=== PATIENT | male | born 1955 | race Hispanic/Latino ===

== ENCOUNTER 2019-04-14 09:24 | Emergency (ER) | payer BC, OTHER ==
[2019-04-14 09:46] LABS: Absolute Lymphocytes (CBC) 1.3 K/uL (0.7-4.9); Basophils % 0.7 % (0-1.3); Hematocrit 33.5 % (39.6-49.0); MPV 8.6 fL (7.6-11.3); RBC Red Blood Cell Count 3.75 M/uL (4.33-5.43)
--- NOTE | 2019-04-14 09:47 | RAD REPORT ---
EXAM DESCRIPTION: CT - Ct Stroke Brain Wo Cont - 04/14/2019 9:38 am CLINICAL HISTORY: Blurred vision COMPARISON: September 03, 2018 TECHNIQUE: Computed axial tomography of the head was obtained. All CT scans are performed using dose optimization technique as appropriate and may include automated exposure control or mA/KV adjustment according to patient size. FINDINGS: An intracranial bleed is not seen . The ventricles are normal in caliber. No extra-axial fluid collection is noted. Fluid within the sinuses/ mastoids is not seen. Minimal mucoperiosteal thickening right maxillary sin us IMPRESSION: No acute intracranial abnormality is seen. If patient's symptoms persist MRI of the bra in would be recommended. Dr Menchaca of the emergency room was notified at 9:42 a.m. April 14, 2019
[2019-04-14 09:53] LABS: Protime INR 1.01
[2019-04-14] MEDS ORDERED: NA CHLORIDE 0.9% 1,000 ML ONE (10:18)
--- NOTE | 2019-04-14 10:22 | RAD REPORT ---
EXAM DESCRIPTION: Sima Single View04/14/2019 9:45 am CLINICAL HISTORY: Hypertension COMPARISON: 2010 FINDINGS: The aortic arch is prominent likely is secondary to either tortuosity/ectasia or aneurysm The lungs appear clear of acute infiltrate. The heart is normal size
[2019-04-14 10:25] LABS: Potassium 4.5 mmol/L (3.5-5.1)
--- NOTE | 2019-04-14 12:04 | EDPHYS ---
Physician Documentation [facility] Name: Sabra Rodriguez Jr Age: 63 yrs Sex: Male : 1955 Arrival Date: 04/14/2019 Time: 09:25 Bed 8 Private MD: ED Physician Adolfo Menchaca HPI: 04/14 11:59 This 63 yrs old Male presents to ER via EMS with complaints of Blurred Vision. ma2 11:59 The patient is experiencing blurred vision. Onset: The symptoms/episode began/occurred ma2 gradually, 1 day(s) ago. Associated signs and symptoms: Pertinent negatives: chills, ear ache, fever, headache. Patient wears glasses. Severity of symptoms: At their worst the symptoms were moderate in the emergency department the symptoms have improved. The patient has not experienced similar symptoms in the past, The patient has experienced similar episodes in the past. Historical: - Allergies: 09:29 No Known Allergies; hb - Home Meds: :29 lisinopril 20 mg Oral tab 1 tab once daily [Active]; hb - PMHx: :29 Hypertension; hb - PSHx: 09:29 None; hb - Immunization history:: Adult Immunizations up to date. - Social history:: Smoking status: Patient/guardian denies using tobacco, Patient/guardian denies using alcohol, street drugs, The patient lives with family. - Ebola Screening: : No symptoms or risks identified at this time. - Family history:: not pertinent. ROS: 11:59 Constitutional: Negative for fever, chills, and weight loss. ma2 11:59 All other systems are negative. Exam: 11:59 Visual Acuity: 60/20 right and 120/20 on left, that is baseline per patient . ma2 11:59 Constitutional: This is a well developed, well nourished patient who is awake, alert, and in no acute distress. Head/Face: Normocephalic, atraumatic. Eyes: Pupils equal round and reactive to light, extra-ocular motions intact. Lids and lashes normal. Conjunctiva and sclera are non-icteric and not injected. Cornea within normal limits. Periorbital areas with no swelling, redness, or edema. Cardiovascular: Regular rate and rhythm with a normal S1 and S2. No gallops, murmurs, or rubs. Normal PMI, no JVD. No pulse deficits. Respiratory: Lungs have equal breath sounds bilaterally, clear to auscultation and percussion. No rales, rhonchi or wheezes noted. No increased work of breathing, no retractions or nasal flaring. Abdomen/GI: Soft, non-tender, with normal bowel sounds. No distension or tympany. No guarding or rebound. No evidence of tenderness throughout. MS/ Extremity: Pulses equal, no cyanosis. Neurovascular intact. Full, normal range of motion. Neuro: Awake and alert, GCS 15, oriented to person, place, time, and situation. Cranial nerves II-XII grossly intact. Motor strength 5/5 in all extremities. Sensory grossly intact. Cerebellar exam normal. Normal gait. Vital Signs: 09:28 BP 173 / 73; Pulse 88; Resp 16; Temp 97.2; Pulse Ox 100% on R/A; Pain 0/10; hb 09:53 BP 167 / 79; Pulse 80; Resp 17; Pulse Ox 98% on R/A; sg 11:00 BP 156 / 76; Pulse 77; Resp 15; Pulse Ox 100% on R/A; Pain 0/10; hb 12:00 BP 148 / 74; Pulse 72; Resp 15; Pulse Ox 100% on R/A; sg NIH Stroke Scale Scores: 10:10 NIHSS Score: 0 hb MDM: 09:32 Patient medically screened. ma2 11:59 Differential diagnosis: diabetic retinopathy or retinal disease, his blurry vision is ma2 resolved. Data reviewed: vital signs, nurses notes. Counseling: I had a detailed discussion with the patient and/or guardian regarding: the historical points, exam findings, and any diagnostic results supporting the discharge/admit diagnosis, the presence of at least one elevated blood pressure reading (>120/80) during this emergency department visit, the need for outpatient follow up, needs to see opthalomolgy in the next 24 ghrs . Response to treatment: There is no appreciated change of the patient's symptoms at this time, the patient's symptoms have mildly improved after treatment. 04/14 09:32 Order name: Basic Metabolic Panel; Complete Time: 10:25 hb 04/14 09:32 Order name: CBC with Diff; Complete Time: 10:25 hb 04/14 09:32 Order name: Protime (+inr); Complete Time: 10:25 hb 04/14 09:32 Order name: Ptt, Activated; Complete Time: 10:25 hb 04/14 09:32 Order name: CT Stroke Brain w/o Contrast hb 04/14 09:50 Order name: Glucose, Ancillary Testing; Complete Time: 10:25 EDMS 04/14 09:32 Order name: Stroke CXR 1 View hb 04/14 09:32 Order name: Accucheck; Complete Time: 10:03 hb 04/14 09:32 Order name: Cardiac monitoring; Complete Time: 10:04 hb 04/14 09:32 Order name: EKG - Nurse/Tech; Complete Time: 10:04 hb 04/14 09:32 Order name: IV Saline Lock; Complete Time: 10:04 hb 04/14 09:32 Order name: Labs collected and sent; Complete Time: 10:04 hb 04/14 09:32 Order name: NPO; Complete Time: 10:04 hb 04/14 09:32 Order name: O2 Per Protocol; Complete Time: 10:04 hb 04/14 09:32 Order name: O2 Sat Monitoring; Complete Time: 10:04 hb 04/14 09:32 Order name: Stroke Swallow Screen; Complete Time: 10:04 hb Administered Medications: 10:31 Drug: NS 0.9% 1000 ml Route: IV; Rate: 1000 ml; Site: right antecubital; sg 11:22 Follow up: Response: No adverse reaction; IV Status: Completed infusion; IV Intake: hb 1000ml Disposition: 04/14/19 12:03 Discharged to Home. Impression: Visual disturbances. - Condition is Stable. - Discharge Instructions: Blurred Vision, Adult. - Medication Reconciliation Form, Thank You Letter, Antibiotic Education, Prescription Opioid Use form. - Follow up: Oscar Griffin MD; When: Tomorrow; Reason: Continuance of care. NIH Stroke Scale - NIH Stroke Score Date: 04/14/2019 Time: 10:10 Total Score = 0 1a. Level of Consciousness (LOC) - 0(Alert) 1b. Level of Consciousness (LOC) (Year \T\ Age) - 0(Both) 1c. LOC Commands (Open \T\ Closes Eyes/Hr Shared Services Consultant) - 0(Both) 2. Best Gaze (Lateral Gaze Paresis) - 0(Normal) 3. Visual Field Loss - 0(No visual loss) 4. Facial Palsy - 0(Normal) 5a. Left Arm: Motor (10-second hold) - 0(No drift) 5b. Right Arm: Motor (10-second hold) - 0(No drift) 6a. Left Leg: Motor (5-second hold - always test supine) - 0(No drift) 6b. Right Leg: Motor (5-second hold - always test supine) - 0(No drift) 7. Limb Ataxia (finger/nose \T\ heel/serrato - test with eyes open) - 0(Absent) 8. Sensory Loss (pinprick arms/legs/face) - 0(Normal) 9. Best Language: Aphasia (description/naming/reading) - 0(No aphasia) 10. Dysarthria (speech clarity - read or repeat words) - 0(Normal) 11. Extinction and Inattention (visual/tactile/auditory/spatial/personal) - 0(No abnormality) Initials: Signatures: Dispatcher [employer] EDMS Orlin Savage RN RN Davida Magana RN RN Leigh Oliveros RN RN Adolfo Menchaca MD MD ma2 Corrections: (The following items were deleted from the chart) 12:36 12:03 04/14/2019 12:03 Discharged to Home. Impression: Visual disturbances. ss Condition is Stable. Forms are Medication Reconciliation Form, Thank You Letter, Antibiotic Education, Prescription Opioid Use. Follow up: Oscar Griffin; When: Tomorrow; Reason: Continuance of care. ma2
--- NOTE | 2019-04-14 12:04 | ER ---
Nurse's Notes [facility] Name: Sabra Rodriguez Jr Age: 63 yrs Sex: Male : 1955 Arrival Date: 04/14/2019 Time: 09:25 Bed 8 Private MD: Diagnosis: Visual disturbances Presentation: 04/14 09:25 Presenting complaint: EMS states: Blurred vision that started at 0815 today. Hx of HTN, hb takes lisinopril 20 mg, took an extra lisinopril before calling medic. BP 210/130, BGL 87. VAN NEGATIVE. Transition of care: patient was not received from another setting of care. Onset of symptoms was April 14, 2019 at 08:15. Risk Assessment: Do you want to hurt yourself or someone else? Patient reports no desire to harm self or others. Care prior to arrival: IV initiated. 20 GA, in the left antecubital area, Glucose check: 232. 09:25 Method Of Arrival: EMS: [facility] 09:25 Acuity: KRISTINA 2 hb 09:31 Initial Sepsis Screen: Does the patient meet any 2 criteria? No. Patient's initial hb sepsis screen is negative. Does the patient have a suspected source of infection? No. Patient's initial sepsis screen is negative. Triage Assessment: 09:29 General: Appears in no apparent distress. Behavior is calm, cooperative. Pain: Denies hb pain. EENT: No signs and/or symptoms were reported regarding the EENT system. Neuro: Level of Consciousness is awake, alert, obeys commands, Oriented to person, place, time, situation. Cardiovascular: Capillary refill < 3 seconds Patient's skin is warm and dry. Respiratory: Airway is patent Respiratory effort is even, unlabored, Respiratory pattern is regular, symmetrical, Breath sounds are clear bilaterally. GI: No signs and/or symptoms were reported involving the gastrointestinal system. : No signs and/or symptoms were reported regarding the genitourinary system. Derm: No signs and/or symptoms reported regarding the dermatologic system. Skin is pink, warm \T\ dry. Musculoskeletal: No signs and/or symptoms reported regarding the musculoskeletal system. Historical: - Allergies: : No Known Allergies; hb - Home Meds: lisinopril 20 mg Oral tab 1 tab once daily [Active]; hb - PMHx: 09:29 Hypertension; hb - PSHx: 09:29 None; hb - Immunization history:: Adult Immunizations up to date. - Social history:: Smoking status: Patient/guardian denies using tobacco, Patient/guardian denies using alcohol, street drugs, The patient lives with family. - Ebola Screening: : No symptoms or risks identified at this time. - Family history:: not pertinent. Screenin:29 Abuse screen: Denies threats or abuse. Denies injuries from another. Nutritional hb screening: No deficits noted. Tuberculosis screening: No symptoms or risk factors identified. Fall Risk None identified. 10:10 Patient has been NPO before screening. The patient is alert, able to follow commands. hb The patient does not exhibit slurred or garbled speech The patient is not exhibiting difficulty speaking. The patient does not exhibit difficulty understanding words. The patient is able to swallow own secretions with no drooling or need for suction. Patient tolerated one teaspoon of water. No drooling, immediate coughing, gurgling, or clearing of the throat was noted. The patient tolerated 90mL of water. No drooling, immediate coughing, gurgling, or clearing of the throat was noted. The patient passed the bedside swallow screening. Oral medications may be given as ordered. Contact Physician for further diet orders. Assessment: 09:27 Reassessment: CODE STROKE CALLED. Pt to CT with Orlin GARNETT. hb 09:30 General: see triage assessment. hb 10:30 Reassessment: Patient appears in no apparent distress at this time. Patient and/or sg family updated on plan of care and expected duration. Pain level reassessed. Patient is alert, oriented x 3, equal unlabored respirations, skin warm/dry/pink. reports feeling a chill from the inside, denies feeling anxious or cold on the skin, pt family at bedside at this time. 10:44 Pain: Denies pain. Neuro: Level of Consciousness is awake, alert, obeys commands, sg Oriented to person, place, time, Reports blurred vision. Cardiovascular: Patient's skin is warm and dry. Chest pain is denied. Respiratory: Airway is patent Respiratory effort is even, unlabored, Respiratory pattern is regular, symmetrical. Derm: Skin is pink, warm \T\ dry. Musculoskeletal: Circulation, motion, and sensation intact. Range of motion: intact in all extremities. 11:30 Reassessment: Patient appears in no apparent distress at this time. Patient and/or hb family updated on plan of care and expected duration. Pain level reassessed. Patient is alert, oriented x 3, equal unlabored respirations, skin warm/dry/pink. 12:30 Reassessment: Patient appears in no apparent distress at this time. Patient and/or sg family updated on plan of care and expected duration. Pain level reassessed. Patient is alert, oriented x 3, equal unlabored respirations, skin warm/dry/pink. Vital Signs: 09:28 BP 173 / 73; Pulse 88; Resp 16; Temp 97.2; Pulse Ox 100% on R/A; Pain 0/10; hb 09:53 BP 167 / 79; Pulse 80; Resp 17; Pulse Ox 98% on R/A; sg 11:00 BP 156 / 76; Pulse 77; Resp 15; Pulse Ox 100% on R/A; Pain 0/10; hb 12:00 BP 148 / 74; Pulse 72; Resp 15; Pulse Ox 100% on R/A; sg NIH Stroke Scale Scores: 10:10 NIHSS Score: 0 hb ED Course: 09:25 Patient arrived in ED. hb 09:27 Triage completed. hb 09:28 Arm band placed on. hb 09:30 Patient has correct armband on for positive identification. Bed in low position. Call hb light in reach. Side rails up X 1. 09:30 Maintain EMS IV. Dressing intact. Good blood return noted. Site clean \T\ dry. Gauge \T\ hb site: 20 G LEFT AC. 09:32 Adolfo Menchaca MD is Attending Physician. ma2 09:34 Leigh Oliveros, TAMIR is Primary Nurse. hb 09:38 CT Stroke Brain w/o Contrast In Process Unspecified. EDMS 09:45 Stroke CXR 1 View In Process Unspecified. EDMS 09:51 Awaiting ED provider evaluation. sg 12:03 Oscar Griffin MD is Referral Physician. ma2 12:29 No provider procedures requiring assistance completed. IV discontinued, intact, ss bleeding controlled, No redness/swelling at site. Pressure dressing applied. Administered Medications: 10:31 Drug: NS 0.9% 1000 ml Route: IV; Rate: 1000 ml; Site: right antecubital; sg 11:22 Follow up: Response: No adverse reaction; IV Status: Completed infusion; IV Intake: hb 1000ml Intake: 11:22 IV: 1000ml; Total: 1000ml. hb Outcome: 12:03 Discharge ordered by . mali 12:29 Discharged to home ambulatory, with family. 12:29 Condition: good 12:29 Discharge instructions given to patient, family, Instructed on discharge instructions, follow up and referral plans. Demonstrated understanding of instructions, follow-up care, medications. 12:36 Patient left the ED. NIH Stroke Scale - NIH Stroke Score Date: 04/14/2019 Time: 10:10 Total Score = 0 1a. Level of Consciousness (LOC) - 0(Alert) 1b. Level of Consciousness (LOC) (Year \T\ Age) - 0(Both) 1c. LOC Commands (Open \T\ Closes Eyes/Auricular Therapist) - 0(Both) 2. Best Gaze (Lateral Gaze Paresis) - 0(Normal) 3. Visual Field Loss - 0(No visual loss) 4. Facial Palsy - 0(Normal) 5a. Left Arm: Motor (10-second hold) - 0(No drift) 5b. Right Arm: Motor (10-second hold) - 0(No drift) 6a. Left Leg: Motor (5-second hold - always test supine) - 0(No drift) 6b. Right Leg: Motor (5-second hold - always test supine) - 0(No drift) 7. Limb Ataxia (finger/nose \T\ heel/serrato - test with eyes open) - 0(Absent) 8. Sensory Loss (pinprick arms/legs/face) - 0(Normal) 9. Best Language: Aphasia (description/naming/reading) - 0(No aphasia) 10. Dysarthria (speech clarity - read or repeat words) - 0(Normal) 11. Extinction and Inattention (visual/tactile/auditory/spatial/personal) - 0(No abnormality) Initials: hb Signatures: Dispatcher [employer] Orlin Scott RN RN Davida Magana RN RN ss Baxter, Heather, RN RN Adolfo Menchaca MD MD ma2
[2019-04-14 12:45] VITALS: TEMP 97.2
[2019-04-14 12:48] VITALS: BP 167/79; O2SAT 98
--- OUTSIDE RECORDS SUMMARY | 2019-04-15 07:06 | XMS REPORT ---
:1955 Author Organization [employer] Care Team Providers Name Role Phone Hayder Guardado Provider Role Unavailable Allergies No Known Allergies Problems Problem Type Condition Code Onset Dates Condition Status Assessment Type 2 diabetes mellitus with E11.21 Active diabetic nephropathy Problem Type 2 diabetes mellitus with E11.21 Active diabetic nephropathy Problem Type 2 diabetes mellitus with E11.65 Active hyperglycemia Problem Mixed hyperlipidemia E78.2 Active Problem Nocturia R35.1 Active Problem BMI 40.0-44.9, adult Z68.41 Active Problem Proteinuria, unspecified type R80.9 Active Problem HTN, goal below 130/80 I10 Active Medications Medication Code System Code Instructions Start End Date Status Dosage Date GlipiZIDE ND 97855645851 10 MG Orally November 08, Active 1 tablet Once a day 2017 Jardiance [facility] 77873336091 10 MG Orally October 20December 19, Inactive 1 tablet Once a day 2017 2018 Results No Known Results Summary Purpose [employer] Submission
--- OUTSIDE RECORDS SUMMARY | 2019-04-15 07:06 | XMS REPORT ---
:1955 Author Organization [employer] Care Team Providers Name Role Phone Hayder Guardado Provider Role Unavailable Allergies, Adverse Reactions, Alerts Substance Reaction Event Type N.K.D.A. Info Not Available Non Drug Allergy Problems Problem Type Condition Code Onset Dates Condition Status Assessment HTN, goal below 130/80 I10 Active Assessment Type 2 diabetes mellitus with E11.21 Active diabetic nephropathy Assessment Mixed hyperlipidemia E78.2 Active Assessment BMI 40.0-44.9, adult Z68.41 Active Assessment Proteinuria, unspecified type R80.9 Active Problem Type 2 diabetes mellitus with E11.21 Active diabetic nephropathy Problem Type 2 diabetes mellitus with E11.65 Active hyperglycemia Problem Mixed hyperlipidemia E78.2 Active Problem Nocturia R35.1 Active Problem BMI 40.0-44.9, adult Z68.41 Active Problem Proteinuria, unspecified type R80.9 Active Problem HTN, goal below 130/80 I10 Active Medications Medication Code Code Instructions Start End Status Dosage System Date Date Metformin HCl [facility] 39247548782 1000 MG Orally October 20, Active 1 tablet Twice a day 2018 with a meal Jardiance [facility] 46979890063 10 MG Orally October 20December Active 1 tablet Once a day 2017 Simvastatin ND 46881854840 10 MG Orally October 20, Active 1 tablet Once a day at 2018 in the bedtime evening Lisinopril-Hydr [facility] 22812285710 10-12.5 MG October 20, Active 1 tablet ochlorothiazide Orally Once a 2018 day Results No Known Results Summary Purpose [employer] Submission
--- OUTSIDE RECORDS SUMMARY | 2019-04-15 07:06 | XMS REPORT ---
:1955 Author Organization [employer] Care Team Providers Name Role Phone Geo Hayder Provider Role Unavailable Allergies No Known Allergies Problems Problem Type Condition Code Onset Dates Condition Status Assessment Mixed hyperlipidemia E78.2 Active Assessment Type 2 diabetes mellitus with E11.21 Active diabetic nephropathy Assessment BMI 40.0-44.9, adult Z68.41 Active Assessment Proteinuria, unspecified type R80.9 Active Assessment HTN, goal below 130/80 I10 Active Problem Type 2 diabetes mellitus with E11.21 Active diabetic nephropathy Problem Type 2 diabetes mellitus with E11.65 Active hyperglycemia Problem Mixed hyperlipidemia E78.2 Active Problem Nocturia R35.1 Active Problem BMI 40.0-44.9, adult Z68.41 Active Problem Proteinuria, unspecified type R80.9 Active Problem HTN, goal below 130/80 I10 Active Medications Medication Code Code Instructions Start End Status Dosage System Date Date Jardiance ND 19009978019 10 MG Orally December Inactive 1 tablet Once a day 2017 Lisinopril-Hydr [facility] 52654251400 10-12.5 MG Inactive 1 tablet ochlorothiazide Orally Once a day Lisinopril-Hydr ND 51767601673 20-12.5 MG December 18, Active 1 tablet ochlorothiazide Orally Once a 2018 day GlipiZIDE ND 54153215629 10 MG Orally November 08, Active 1 tablet Once a day 2017 Simvastatin ND 79049981593 40 MG Orally Active 1 tablet Once a day at in the bedtime evening Metformin HCl ND 84272299895 1000 MG Orally Active 1 tablet Twice a day with a meal Results No Known Results Summary Purpose [employer] Submission
--- OUTSIDE RECORDS SUMMARY | 2019-04-15 07:06 | XMS REPORT ---
:1955 Author Organization [employer] Care Team Providers Name Role Phone Hayder Guardado Provider Role Unavailable Allergies, Adverse Reactions, Alerts Substance Reaction Event Type N.K.D.A. Info Not Available Non Drug Allergy Problems Problem Type Condition Code Onset Dates Condition Status Assessment Screening for colon cancer Z12.11 Active Assessment BMI 40.0-44.9, adult Z68.41 Active Assessment Nocturia R35.1 Active Assessment Encounter for screening for other Z11.59 Active viral diseases Problem BMI 40.0-44.9, adult Z68.41 Active Problem Elevated BP without diagnosis of R03.0 Active hypertension Problem Nocturia R35.1 Active Assessment Uncontrolled type 2 diabetes E11.65 Active mellitus without complication, without long-term current use of insulin Assessment Elevated BP without diagnosis of R03.0 Active hypertension Problem Uncontrolled type 2 diabetes E11.65 Active mellitus without complication, without long-term current use of insulin Assessment Encounter for preventative adult Z00.01 Active health care exam with abnormal findings Medications No Known Medications Results No Known Results Summary Purpose [employer] to [employer] Submission
--- NOTE | 2019-04-15 15:56 | EKG ---
Test Date: 2019-04-14 Test Time: 09:46:10 Fusing Machine Operator: SHABBIR MEASUREMENT RESULTS: Intervals: Rate: 77 OK: 158 QRSD: 152 QT: 410 QTc: 463 [place]: P: 2 OK: 158 QRS: -57 T: 21 INTERPRETIVE STATEMENTS: Normal sinus rhythm Left axis deviation Nonspecific intraventricular block Abnormal ECG No previous ECG available for comparison Electronically Signed On 04-15-19 15:54:33 HEAD CHEF by Mukund Navarrete
== END 2019-04-14 12:36 | disposition home or self-care (01) ==
LOC: ER 09:24
DX: H53.8 Other visual disturbances (principal); I10 Essential (primary) hypertension
CPT/HCPCS: 93005; 85025; 80048; 36415; 85610; 82947; 85730; 70450; 71045; 96360; 99284; J7030

== ENCOUNTER 2019-10-05 09:59 | Emergency (ER) | payer BC ==
--- OUTSIDE RECORDS SUMMARY | 2019-10-05 10:01 | XMS REPORT ---
:1955 Author Organization [employer] Care Team Providers Name Role Phone Hayder Guardado Provider Role Unavailable Allergies, Adverse Reactions, Alerts Substance Reaction Event Type N.K.D.A. Info Not Available Non Drug Allergy Problems Problem Type Condition Code Onset Dates Condition Statu s Assessment HTN, goal below 130/80 I10 Activ e Assessment Type 2 diabetes mellitus with E11.21 [...] Active Problem HTN, goal below 130/80 I10 Activ e Medications Medication Code Code Instructions Start End Status Dosage System Date Date Metformin HCl ND 38401696909 1000 MG Orally October 20, Active 1 tablet Twice a day 2018 with a meal Jardiance [facility] 44608947412 10 MG Orally October 20December Active 1 tab let Once a day 2017 Simvastatin ND 46288047286 10 MG Orally October 20, Active 1 t ablet Once a day at 2018 in the bedtime evening Lisinopril-Hydr [facility] 47379680348 10-12.5 MG October 20, Active 1 tablet ochlorothiazide Orally Once a 2018 day Results No Known Results Summary Purpose [employer] Submission
--- OUTSIDE RECORDS SUMMARY | 2019-10-05 10:01 | XMS REPORT ---
:1955 Author Organization [employer] Care Team Providers Name Role Phone Hayder Guardado Provider Role Unavailable Allergies No Known Allergies Problems Problem Type Condition Code Onset Dates Condition Statu s Assessment Type 2 diabetes mellitus with E11.21 Active diabetic nephropathy Problem Type 2 diabetes mellitus with E11.21 Active diabetic nephropathy Problem Type 2 diabetes mellitus with E11.65 Active hyperglycemia Problem Mixed hyperlipidemia E78.2 Active Problem Nocturia R35.1 Active Problem BMI 40.0-44.9, adult Z68.41 Active Problem Proteinuria, unspecified type R80.9 Active Problem HTN, goal below 130/80 I10 Activ e Medications Medication Code System Code Instructions Start End Date Status Dos age Date GlipiZIDE [facility] 93514674247 10 MG Orally November 08, Active 1 ta blet Once a day 2017 Jardiance [facility] 61273835676 10 MG Orally October 20December 19, Inactive 1 t ablet Once a day 2017 2017 Results No Known Results Summary Purpose [employer] Submission
--- OUTSIDE RECORDS SUMMARY | 2019-10-05 10:01 | XMS REPORT ---
:1955 Author Organization eClinicalWorks Care Team Providers Name Role Phone Geo Hayder Provider Role Unavailable Allergies No Known Allergies Problems Problem Type Condition Code Onset Dates Condition Statu s Assessment Mixed hyperlipidemia E78.2 Active Assessment Type 2 diabetes mellitus with E11.21 Active diabetic nephropathy Assessment BMI 40.0-44.9, adult Z68.41 Active Assessment Proteinuria, unspecified type R80.9 Active Assessment HTN, goal below 130/80 I10 Activ e Problem Type 2 diabetes mellitus with E11.21 Active diabetic nephropathy Problem Type 2 diabetes mellitus with E11.65 Active hyperglycemia Problem Mixed hyperlipidemia E78.2 Active Problem Nocturia R35.1 Active Problem BMI 40.0-44.9, adult Z68.41 Active Problem Proteinuria, unspecified type R80.9 Active Problem HTN, goal below 130/80 I10 Activ e Medications Medication Code Code Instructions Start End Status Dosage System Date Date Jardiance ND 55805751787 10 MG Orally December Inactive 1 ta blet Once a day 2017 Lisinopril-Hydr ND 28879487948 10-12.5 MG Inactive 1 tablet ochlorothiazide Orally Once a day Lisinopril-Hydr ND 56803285039 20-12.5 MG December 18, Active 1 tablet ochlorothiazide Orally Once a 2017 day GlipiZIDE ND 67198327048 10 MG Orally November 08, Active 1 ta blet Once a day 2017 Simvastatin ND 62907973440 40 MG Orally Active 1 t ablet Once a day at in the bedtime evening Metformin HCl ND 93498487118 1000 MG Orally Active 1 tablet Twice a day with a meal Results No Known Results Summary Purpose eClinicalWorks Submission
--- OUTSIDE RECORDS SUMMARY | 2019-10-05 10:01 | XMS REPORT ---
:1955 Author Organization [employer]ClinicalWorks Care Team Providers Name Role Phone Hayder Guardado Provider Role Unavailable Allergies, Adverse Reactions, Alerts Substance Reaction Event Type N.K.D.A. Info Not Available Non Drug Allergy Problems Problem Type Condition Code Onset Dates Condition Statu s Assessment Screening for colon cancer Z12.11 A ctive Assessment BMI 40.0-44.9, adult Z68.41 Active Assessment [...] Medications Results No Known Results Summary Purpose eClinicalWorks Submission
--- OUTSIDE RECORDS SUMMARY | 2019-10-05 10:02 | XMS REPORT ---
:1955 Author Organization [facility] t Address [address] [place] [address] Care Team Providers Name Role Phone Unavailable Unavailable Unavailable Problems Condition Condition Condition Status Onset Resolution Last Treatin g Comments Name Details Category Date Date Treatment Clinician Date BMI BMI Problem Active 40.0-44.9, 40.0-44.9, adult adult Nocturia Nocturia Problem Active Type 2 Type 2 Problem Active diabetes diabetes mellitus mellitus with with hyperglycem hyperglycem ia ia HTN, goal HTN, goal Problem Active below below 130/80 130/80 Type 2 Type 2 Problem Active diabetes diabetes mellitus mellitus with with diabetic diabetic nephropathy nephropathy Mixed Mixed Problem Active hyperlipide hyperlipide annita annita Proteinuria Proteinuria Problem Active , , unspecified unspecified type type Allergies, Adverse Reactions, Alerts This patient has no known allergies or adverse reactions. Medications Ordered Filled Start Stop Current Ordering Indication Dosage Frequency Signature Comments Components Medication Medication Date Date Medication? Clinician (SIG) Name Name Lisinopril- Lisinopril- 2018- Yes Hayder 1 tabl et Hydrochloro Hydrochloro -16 Guardado thiazide thiazide 00:00: 00 GlipiZIDE GlipiZIDE 2018-0 Yes Haydre 1 tablet 6-06 Guardado 00:00: 00 Jardiance Jardiance 2018- 2018- No Hayder 1 tablet -18 12-18 Guardado 00:00: 00:00 00 :00 Lisinopril- Lisinopril- Yes Hayder 1 table t Hydrochloro Hydrochloro Guardado thiazide thiazide Simvastatin Simvastatin Yes Hayder 1 table t Guardado in the evening Metformin Metformin Yes Hayder 1 tablet HCl HCl Guardado with a meal Encounters Start End Encounter Admission Attending Care Care Encounter Date/Time Date/Time Type Type Clinicians Facility Department ID 2017-12-18 2017-12-18 [facility] [id number] 14:00:00 14:00:00 [facility] 2017-10-23 2017-10-23 [facility] [id number] 15:32:00 15:32:00 [facility] 2017-10-20 2017-10-20 [facility] [id number] 10:30:00 10:30:00 [facility] 2017-10-02 2017-10-02 [facility] [id number] 10:30:00 10:30:00 [facility]
[2019-10-05] MEDS ORDERED: ONDANSETRON 4 MG/2 ML VIAL ONE (10:49)
[2019-10-05] MEDS ORDERED: NA CHLORIDE 0.9% 500 ML ONE (10:49)
[2019-10-05 10:56] LABS: Absolute Lymphocytes (CBC) 0.7 K/uL (0.7-4.9); Basophils % 0.4 % (0-1.3); Hematocrit 36.6 % (39.6-49.0); Lymphocytes % 5.3 % (15.3-44.8); MPV 9.3 fL (7.6-11.3)
[2019-10-05 11:07] LABS: Albumin 3.1 g/dL (3.4-5.0); Bilirubin Direct 0.2 mg/dL (0-0.2); Bilirubin Total 0.7 mg/dL (0.2-1.0); Potassium 3.8 mmol/L (3.5-5.1); Protein, Total 7.9 g/dL (6.4-8.2)
[2019-10-05 11:51] LABS: Blood Morphology Comment NOT SEEN (NOT SEEN); Platelet Estimate ADEQ
--- NOTE | 2019-10-05 12:35 | RAD REPORT ---
EXAM DESCRIPTION: CT - Abdomen Pelvis W Contrast - 10/05/2019 12:15 pm CLINICAL HISTORY: Abdominal pain. COMPARISON: None. TECHNIQUE: Computed axial tomography of the abdomen and pelvis was obtained. 100 cc Isovue-300 is ad ministered intravenously. Oral contrast was given. All CT scans are performed using dose optimization technique as appropriate and may include automated exposure control or mA/KV adjustment according to patient size. FINDINGS: The liver, spleen, pancreas, adrenals and kidneys appear unremarkable. The appendix is not visualized. There is no stranding adjacent to the cecum. There is no evidence of diverticulitis The bladder is mildly distended IMPRESSION: Mild bladder distention
--- NOTE | 2019-10-05 12:51 | ER ---
Nurse's Notes [facility] Name: Sabra Rodriguez Jr Age: 63 yrs Sex: Male : 1955 Arrival Date: 10/05/2019 Time: 10:00 Bed 25 Private MD: Diagnosis: Generalized abdominal pain Presentation: 10/04 10:05 Chief complaint: Patient states: right-sided abd pain, nausea, and constipation. Denies aa5 vomiting. Pt reports last normal BM was 4 days ago, reports small bowel movement this morning. 10:05 Coronavirus screen: Proceed with normal triage. Patient denies a cough. Patient denies aa5 shortness of breath or difficulty breathing. Patient denies measured and/or subjective temperature greater than 100.4F prior to today's visit. Patient denies travel on a cruise ship or to a country the [facility] currently lists as an affected area. Patient denies contact with known and/or suspected case of COVID-19. Ebola Screen: Patient negative for fever greater than or equal to 101.5 degrees Fahrenheit, and additional compatible Ebola Virus Disease symptoms. Initial Sepsis Screen: Does the patient meet any 2 criteria? No. Patient's initial sepsis screen is negative. Does the patient have a suspected source of infection? No. Patient's initial sepsis screen is negative. Risk Assessment: Do you want to hurt yourself or someone else? Patient reports no desire to harm self or others. Onset of symptoms was September 2019. 10:05 Acuity: KRISTINA 3 aa5 10:05 Method Of Arrival: Ambulatory aa5 Historical: - Allergies: 10:18 No Known Allergies; aa5 - Home Meds: 10:18 lisinopril-hydrochlorothiazide oral oral [Active]; Metformin Oral [Active]; losartan aa5 oral oral [Active]; - PMHx: 10:18 Hypertension; aa5 - PSHx: 10:18 None; aa5 - Immunization history:: Adult Immunizations unknown. - Family history:: not pertinent. - Social history:: Smoking status: unknown. - Hospitalizations: : No recent hospitalization is reported. Screenin:52 Abuse screen: Denies threats or abuse. Denies injuries from another. Nutritional iw screening: No deficits noted. Tuberculosis screening: No symptoms or risk factors identified. Fall Risk None identified. Assessment: 10:51 General: Appears in no apparent distress. Behavior is calm, cooperative. Pain: iw Complains of pain in right upper quadrant Neuro: Level of Consciousness is awake, alert, obeys commands, Oriented to person, place, time, situation, Moves all extremities. Full function. Cardiovascular: Patient's skin is warm and dry. Respiratory: Respiratory effort is even, unlabored, Respiratory pattern is regular, symmetrical. GI: Abdomen is round non-distended, Bowel sounds Abd is soft X 4 quads Reports upper abdominal pain, constipation, nausea, Patient currently denies vomiting. Derm: Skin is intact, is healthy with good turgor. Musculoskeletal: Range of motion: intact in all extremities. 11:43 Reassessment: Patient appears in no apparent distress at this time. Patient and/or iw family updated on plan of care and expected duration. Pain level reassessed. Patient is alert, oriented x 3, equal unlabored respirations, skin warm/dry/pink. Patient states symptoms have not improved. Vital Signs: 10:05 BP 198 / 89; Pulse 92; Resp 16 S; Temp 98.8(O); Pulse Ox 97% on R/A; Weight 102.06 kg aa5 (R); Height 5 ft. 5 in. (165.10 cm) (R); Pain 7/10; 11:43 BP 186 / 74; Pulse 83; Resp 16; Pulse Ox 97% on R/A; iw 10:05 Body Mass Index 37.44 (102.06 kg, 165.10 cm) aa5 ED Course: 10:00 Patient arrived in ED. as 10:05 Solomon Blue MD is Attending Physician. rn 10:05 Arm band placed on. aa5 10:05 Patient has correct armband on for positive identification. iw 10:17 Triage completed. aa5 10:28 Note: PO CONTRAST D/O TO PT \T\ 10;25 W/INSTRUCTIONS. ALSO PT STATED HE WAS TAKING bq METFORMIN FOR DIABETES. PT INSTRUCTED NOT TO TAKE FOR [address] SCAN W/CONTRAST. 10:34 Alicia Greene, RN is Primary Nurse. iw 10:41 Initial lab(s) drawn, by me, sent to lab. Inserted saline lock: 22 gauge in left jb1 antecubital area, using aseptic technique. Blood collected. 12:15 CT completed. Patient tolerated procedure well. Patient moved back from CT. bq 12:17 CT Abd/Pelvis - PO and IV Contrast In Process Unspecified. EDMS 13:02 No provider procedures requiring assistance completed. Patient did not have IV access iw during this emergency room visit. Administered Medications: 10:50 Drug: NS 0.9% 500 ml Route: IV; Rate: bolus; Site: left antecubital; iw 10:50 Drug: Zofran (Ondansetron) 4 mg Route: IVP; Site: left antecubital; iw Outcome: 12:49 Discharge ordered by . rn 13:02 Discharged to home via wheelchair. iw 13:02 Condition: good 13:02 Discharge instructions given to patient, Instructed on discharge instructions, follow up and referral plans. medication usage, Demonstrated understanding of instructions, follow-up care, medications, Prescriptions given X 3. 13:03 Patient left the ED. iw Signatures: Dispatcher [employer] EDMS Emmanuel Carranza1 Gail Rose, Alicia Mascorro RN RN iw Solomon Blue MD MD rn Calderon, Audri, RN RN aa5
--- NOTE | 2019-10-05 12:51 | EDPHYS ---
Physician Documentation [facility] Name: Sabra Rodriguez Jr Age: 63 yrs Sex: Male : 1955 Arrival Date: 10/05/2019 Time: 10:00 Bed 25 Private MD: ED Physician Solomon Blue HPI: 10/04 10:24 This 63 yrs old Male presents to ER via Ambulatory with complaints of rn Abdominal Pain, Nausea, Constipation. 10:24 The patient presents with abdominal pain in the right upper quadrant. Onset: The rn symptoms/episode began/occurred today. The symptoms do not radiate. Associated signs and symptoms: Pertinent positives: constipation, Pertinent negatives: blood in stools, diarrhea, fever, hematuria, testicular pain, vomiting blood. The symptoms are described as achy, crampy. Modifying factors: The symptoms are alleviated by nothing, the symptoms are aggravated by nothing. Severity of pain: At its worst the pain was mild in the emergency department the pain is unchanged. The patient has experienced similar episodes in the past. Reports feeling constipated and having abd pain. usually doesn't have pain with constipation so came in. Last normal BM a couple of days ago, had small BM today, not helped with laxatives. No fever or vomiting. + nausea. No blood in stool. . Historical: - Allergies: 10:18 No Known Allergies; aa5 - Home Meds: 10:18 lisinopril-hydrochlorothiazide oral oral [Active]; Metformin Oral [Active]; losartan aa5 oral oral [Active]; - PMHx: 10:18 Hypertension; aa5 - PSHx: 10:18 None; aa5 - Immunization history:: Adult Immunizations unknown. - Family history:: not pertinent. - Social history:: Smoking status: unknown. - Hospitalizations: : No recent hospitalization is reported. ROS: 10:24 Constitutional: Negative for fever, chills, and weight loss, Eyes: Negative for injury, rn pain, redness, and discharge, Cardiovascular: Negative for chest pain, palpitations, and edema, Respiratory: Negative for shortness of breath, cough, wheezing, and pleuritic chest pain, Abdomen/GI: + abd pain and nausea MS/Extremity: Negative for injury and deformity, Skin: Negative for injury, rash, and discoloration, Neuro: Negative for headache, weakness, numbness, tingling, and seizure. Exam: 10:24 Constitutional: This is a well developed, well nourished patient who is awake, alert, rn and in no acute distress. Ambulatory to room without assistance. Head/Face: Normocephalic, atraumatic. ENT: dry MM Cardiovascular: Regular rate and rhythm. No pulse deficits. Respiratory: No increased work of breathing, no retractions or nasal flaring. Abdomen/GI: soft, mild right sided abd tenderness, neg lee MS/ Extremity: Pulses equal, no cyanosis. Neurovascular intact. Full, normal range of motion. Equal circumference. Neuro: Awake and alert, GCS 15, oriented to person, place, time, and situation. Cranial nerves II-XII grossly intact. Motor strength 5/5 in all extremities. Sensory grossly intact. Cerebellar exam normal. Normal gait. Vital Signs: 10:05 BP 198 / 89; Pulse 92; Resp 16 S; Temp 98.8(O); Pulse Ox 97% on R/A; Weight 102.06 kg aa5 (R); Height 5 ft. 5 in. (165.10 cm) (R); Pain 7/10; 11:43 BP 186 / 74; Pulse 83; Resp 16; Pulse Ox 97% on R/A; iw 10:05 Body Mass Index 37.44 (102.06 kg, 165.10 cm) aa5 MDM: 10:06 Patient medically screened. rn 12:47 Differential diagnosis: appendicitis, bowel obstruction, cholecystitis, Cholelithiasis, rn diverticulitis, gastritis, gastroesophageal reflux disease, non-specific abd pain, pancreatitis, Peptic Ulcer Disease. Data reviewed: vital signs, nurses notes, lab test result(s), radiologic studies, CT scan, and as a result, I will discharge patient. Counseling: I had a detailed discussion with the patient and/or guardian regarding: the historical points, exam findings, and any diagnostic results supporting the discharge/admit diagnosis, lab results, radiology results, the need for outpatient follow up, to return to the emergency department if symptoms worsen or persist or if there are any questions or concerns that arise at home. Response to treatment: the patient's symptoms have mildly improved after treatment, and as a result, I will discharge patient. Special discussion: Based on the patient's Hx, exam, and Dx evaluation, there is no indication for emergent surgery or inpatient Tx. It is understood by the patient/guardian that if the Sx's persist or worsen they need to return immediately for re-evaluation. I discussed with the patient/guardian in detail that at this point there is no indication for admission to the hospital. It is understood, however, that if the symptoms persist or worsen the patient needs to return immediately for re-evaluation. ED course: Pt improved, no acute findings on CT abdomen/pelvis, was with PO and IV contrast, slight elevated WBC, given pain slightly different from his regular constipation, will dc home with abx and pcp f/u. Return precautions given and understood.. 10/04 10:14 Order name: Basic Metabolic Panel; Complete Time: 11:10 rn 10/04 10:14 Order name: CBC with Diff; Complete Time: 12:20 rn 10/04 10:14 Order name: Hepatic Function; Complete Time: 11:10 rn 10/04 10:14 Order name: Lipase; Complete Time: 11:10 rn 10/04 10:14 Order name: CT Abd/Pelvis - PO and IV Contrast; Complete Time: 12:37 rn 10/04 11:51 Order name: Manual Differential; Complete Time: 12:20 EDMS 10/04 10:14 Order name: IV Saline Lock; Complete Time: 10:42 rn 10/04 10:14 Order name: Labs collected and sent; Complete Time: 10:42 rn Administered Medications: 10:50 Drug: NS 0.9% 500 ml Route: IV; Rate: bolus; Site: left antecubital; iw 10:50 Drug: Zofran (Ondansetron) 4 mg Route: IVP; Site: left antecubital; iw Disposition: 10/05/19 12:49 Discharged to Home. Impression: Generalized abdominal pain. - Condition is Stable. - Discharge Instructions: Abdominal Pain, Adult. - Prescriptions for Zofran ODT 4 mg Oral tablet,disintegrating - place 1 tablet by TRANSLINGUAL route every 8 hours As needed; 15 tablet. Cipro 500 mg Oral Tablet - take 1 tablet by ORAL route every 12 hours for 10 days; 20 tablet. Flagyl 500 mg Oral Tablet - take 1 tablet by ORAL route every 8 hours for 10 days; 30 tablet. - Medication Reconciliation Form, Thank You Letter, Antibiotic Education, Prescription Opioid Use form. - Follow up: Private Physician; When: As needed; Reason: Recheck today's complaints, Re-evaluation by your physician. - Problem is new. - Symptoms have improved. Signatures: Dispatcher [employer] Alicia Gramajo RN RN iw Nieto, Roman, MD MD rn Calderon, Audri, TAMIR RN aa5 Corrections: (The following items were deleted from the chart) 13:03 12:49 10/05/2019 12:49 Discharged to Home. Impression: Generalized abdominal pain. iw Condition is Stable. Forms are Medication Reconciliation Form, Thank You Letter, Antibiotic Education, Prescription Opioid Use. Follow up: Private Physician; When: As needed; Reason: Recheck today's complaints, Re-evaluation by your physician. Problem is new. Symptoms have improved. rn
[2019-10-05 13:10] VITALS: TEMP 98.8; O2SAT 97
[2019-10-05 13:11] VITALS: BP 186/74
== END 2019-10-05 13:03 | disposition home or self-care (01) ==
LOC: ER 09:59
DX: R10.84 Generalized abdominal pain (principal); K59.00 Constipation, unspecified; I10 Essential (primary) hypertension
CPT/HCPCS: 85025; 80048; 36415; 80076; 83690; 74177; 96374; 99284; Q9967; J7040; J2405

== ENCOUNTER 2019-10-11 04:28 | Observation (INO) | payer BC ==
--- OUTSIDE RECORDS SUMMARY | 2019-10-11 04:31 | XMS REPORT ---
:1955 Author Organization [facility] t Address [address] [place] [address] Care Team Providers Name Role Phone Unavailable [...] Guardado thiazide thiazide 00:00: 00 GlipiZIDE GlipiZIDE 2017- Yes Hayder 1 tablet 6-06 Guardado 00:00: 00 Jardiance Jardiance 2017- 2018- No Hayder 1 tablet 5-18 -16 Guardado 00:00: 00:00 00 :00 Lisinopril- Lisinopril- Yes Hayder 1 table t Hydrochloro Hydrochloro Guardado thiazide thiazide Simvastatin Simvastatin Yes Hayder 1 table t Guardado in the evening Metformin Metformin Yes Hayder 1 tablet HCl HCl Guardado with a meal Encounters Start End Encounter Admission Attending Care Care Encounter Date/Time Date/Time Type Type Clinicians Facility Department ID 2017-12-18 2017-12-18 [facility] 1 [id number] 14:00:00 14:00:00 [facility] 2017-10-23 2017-10-23 [facility] [id number] 15:32:00 15:32:00 [facility] 2017-10-20 2017-10-20 [facility] [id number] 10:30:00 10:30:00 [facility] 2017-10-02 2017-10-02 [facility] [id number] 10:30:00 10:30:00 [facility]
--- OUTSIDE RECORDS SUMMARY | 2019-10-11 04:31 | XMS REPORT ---
[...] End Date Status Dos age Date GlipiZIDE [facility] 26263876355 10 MG Orally November 08, Active 1 ta blet Once a day 2017 Jardiance [facility] 14083446186 10 MG Orally October 20December 19, Inactive 1 t ablet Once a day 2017 2017 Results No Known Results Summary Purpose eClinicalWorks Submission
--- OUTSIDE RECORDS SUMMARY | 2019-10-11 04:31 | XMS REPORT ---
[...] Dosage System Date Date Metformin HCl ND 03669734898 1000 MG Orally October 20, Active 1 tablet Twice a day 2018 with a meal Jardiance [facility] 59381858643 10 MG Orally October 20December Active 1 tab let Once a day 2017 Simvastatin ND 80999116753 10 MG Orally October 20, Active 1 t ablet Once a day at 2018 in the bedtime evening Lisinopril-Hydr [facility] 15608286111 10-12.5 MG October 20, Active 1 tablet ochlorothiazide Orally Once a 2018 day Results No Known Results Summary Purpose eClinicalWorks Submission
--- OUTSIDE RECORDS SUMMARY | 2019-10-11 04:31 | XMS REPORT ---
[...] Status Dosage System Date Date Jardiance ND 71612102165 10 MG Orally December Inactive 1 ta blet Once a day 2017 Lisinopril-Hydr ND 25668213902 10-12.5 MG Inactive 1 tablet ochlorothiazide Orally Once a day Lisinopril-Hydr ND 12897210659 20-12.5 MG December 18, Active 1 tablet ochlorothiazide Orally Once a 2017 day GlipiZIDE ND 43021252155 10 MG Orally November 08, Active 1 ta blet Once a day 2017 Simvastatin ND 39747988909 40 MG Orally Active 1 t ablet Once a day at in the bedtime evening Metformin HCl ND 93576169264 1000 MG Orally Active 1 tablet Twice a day with a meal Results No Known Results Summary Purpose eClinicalWorks Submission
[2019-10-11 05:03] LABS: Absolute Lymphocytes (CBC) 0.9 K/uL (0.7-4.9)
[2019-10-11 05:13] LABS: Basophils % 0.7 % (0-1.3); Lymphocytes % 7.2 % (15.3-44.8); RBC Red Blood Cell Count 3.39 M/uL (4.33-5.43)
[2019-10-11 05:26] LABS: Albumin 2.3 g/dL (3.4-5.0); Bilirubin Direct 0.2 mg/dL (0-0.2); Bilirubin Total 0.5 mg/dL (0.2-1.0); Potassium 3.6 mmol/L (3.5-5.1); Protein, Total 7.3 g/dL (6.4-8.2)
[2019-10-11] MEDS ORDERED: MEPERIDINE HCL 25 MG/ML SYR ONE (05:53)
[2019-10-11] MEDS ORDERED: NA CHLORIDE 0.9% 500 ML ONE ×2 (05:53→09:05)
--- NOTE | 2019-10-11 09:04 | EDPHYS ---
Physician Documentation [facility] Name: Sabra Rodriguez Jr Age: 63 yrs Sex: Male : 1955 Arrival Date: 10/11/2019 Time: 04:31 Bed 6 Private MD: ED Physician Jose Martin Frey HPI: 10/10 04:50 This 63 yrs old Male presents to ER via Ambulatory with complaints of rn Abdominal Pain. 04:50 The patient presents with abdominal pain right sided. Onset: The symptoms/episode rn began/occurred 1 week(s) ago. The symptoms radiate to chest. Associated signs and symptoms: Pertinent positives: anorexia, Pertinent negatives: blood in stools, diarrhea, fever, shortness of breath, vomiting, vomiting blood. Modifying factors: The symptoms are alleviated by nothing, the symptoms are aggravated by touching the area. Severity of pain: At its worst the pain was moderate in the emergency department the pain has improved. The patient has not experienced similar symptoms in the past. The patient has been recently seen at the [facility] Emergency Department. Reports right sided abd pain for 1 week, seen here a few days ago, neg ct abdomen, put on abx, states not getting better, worse this AM, called 911, checked him out, offered transport, patient decided to come by private vehicle. No new symptoms. . Historical: - Allergies: 04:44 No Known Allergies; lp1 - Home Meds: 04:56 bisoprolol-hydrochlorothiazide oral oral [Active]; ciprofloxacin [Active]; losartan rr5 Oral [Active]; Metformin Oral [Active]; Metronidazole Oral [Active]; - PMHx: 04:44 Hypertension; Diabetes - NIDDM; lp1 - PSHx: 04:44 Appendectomy; lp1 - Immunization history:: Adult Immunizations up to date. - Social history:: Smoking status: Patient denies any tobacco usage or history of. - Family history:: not pertinent. - Hospitalizations: : No recent hospitalization is reported. ROS: 04:53 Constitutional: Negative for fever, chills, and weight loss, Eyes: Negative for injury, rn pain, redness, and discharge, Cardiovascular: Negative for chest pain, palpitations, and edema, Respiratory: Negative for shortness of breath, cough, wheezing, and pleuritic chest pain, Abdomen/GI: + abd pain, neg for vomiting or blood in stool : Negative for injury, bleeding, discharge, and swelling, MS/Extremity: Negative for injury and deformity, Skin: Negative for injury, rash, and discoloration, Neuro: Negative for headache, weakness, numbness, tingling, and seizure. 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 ENT: MMM Cardiovascular: Regular rate and rhythm. No pulse deficits. Respiratory: Speaking full sentences. No increased work of breathing, no retractions or nasal flaring. Abdomen/GI: soft, + right sided abd tenderness, no rebound MS/ Extremity: Pulses equal, no cyanosis. Neuro: Awake and alert, GCS 15, oriented to person, place, time, and situation. Cranial nerves II-XII grossly intact. Motor strength 5/5 in all extremities. Sensory grossly intact. Cerebellar exam normal. Normal gait. 04:53 ECG was reviewed by the Attending Physician. Vital Signs: 04:42 BP 122 / 53; Pulse 74; Resp 20; Temp 97.2; Pulse Ox 98% on R/A; Weight 99.79 kg (R); lp1 Height 5 ft. 5 in. (165.10 cm); Pain 8/10; 05:49 BP 137 / 55; Pulse 68; Resp 19; Pulse Ox 99% on R/A; rr5 06:45 BP 129 / 52; Pulse 69; Resp 18; Pulse Ox 97% ; rr5 08:00 BP 110 / 63; Pulse 64; Resp 15; Pulse Ox 96% ; bp 09:10 BP 108 / 51; Pulse 73; Resp 16; Pulse Ox 99% ; bp 10:50 BP 104 / 42; Pulse 68; Resp 16; Pulse Ox 98% ; bp 04:42 Body Mass Index 36.61 (99.79 kg, 165.10 cm) lp1 MDM: 04:35 Patient medically screened. rn 08:54 Differential diagnosis: AAA, bowel obstruction, cholecystitis, Cholelithiasis, zoe diverticulitis, gastritis, gastroesophageal reflux disease, Mesenteric ischemia or infarction, non-specific abd pain, pancreatitis, Peptic Ulcer Disease, urinary tract infection. Data reviewed: vital signs, nurses notes, lab test result(s), CBC, electrolytes, hepatic panel, EKG, radiologic studies, CT scan, plain films. 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 Test interpretation: by ED physician or midlevel provider: ECG, plain radiologic studies. Counseling: I had a detailed discussion with the patient and/or guardian regarding: the historical points, exam findings, and any diagnostic results supporting the discharge/admit diagnosis, lab results, radiology results, the need for further work-up and treatment in the hospital. Physician consultation: Logan Chamberlain MD regarding consult, will seept in the hospital, and will see patient in ED. ED course: pt with persistent abd pain, ct shows acute [place] cystitis, dr chamberlain aware, will admit to hospitalist. 10/10 04:46 Order name: Basic Metabolic Panel; Complete Time: 05:36 rn 10/10 04:46 Order name: CBC with Diff; Complete Time: 05:36 rn 10/10 04:46 Order name: Creatinine for Radiology; Complete Time: 05:36 rn 10/10 04:46 Order name: Hepatic Function; Complete Time: 05:36 rn 10/10 04:46 Order name: Lipase; Complete Time: 05:36 rn 10/10 05:03 Order name: Troponin (emerg Dept Use Only); Complete Time: 05:49 rn 10/10 09:56 Order name: CBC with Automated Diff EDCO 10/10 09:56 Order name: CBC with Automated Diff EDMS 10/10 09:56 Order name: CBC with Automated Diff EDMS 10/10 09:56 Order name: Comprehensive Metabolic Panel EDCO 10/10 09:56 Order name: Comprehensive Metabolic Panel EDCO 10/10 09:56 Order name: Comprehensive Metabolic Panel EDCO 10/10 09:56 Order name: Hemoglobin A1c EDCO 10/10 09:56 Order name: Hemoglobin A1c EDCO 10/10 04:46 Order name: IV Saline Lock; Complete Time: 04:47 rn 10/10 04:46 Order name: Labs collected and sent; Complete Time: 04:47 rn 10/10 04:46 Order name: CT Abd/Pelvis - PO and IV Contrast rn 10/10 04:53 Order name: EKG; Complete Time: 04:54 rn 10/10 09:56 Order name: CONS Physician Consult EDCO 10/10 09:56 Order name: NPO EDCO 10/10 09:56 Order name: Magnesium EDCO 10/10 09:56 Order name: Magnesium EDCO 10/10 09:56 Order name: Magnesium [facility] 10/10 10:23 Order name: Urine Dipstick--Ancillary (enter results) eb 10/10 10:55 Order name: Urine Dipstick-Ancillary; Complete Time: 10:58 EDCO 10/10 04:53 Order name: EKG - Nurse/Tech; Complete Time: 04:59 rn EC:03 Rate is 76 beats/min. Rhythm is regular. MS interval is normal. QT interval is normal. rn No Q waves. T waves are Normal. No ST changes noted. Clinical impression: Bifascicular block and Normal sinus rhythm. Interpreted by me. Reviewed by me. Administered Medications: 05:48 Drug: NS 0.9% 500 ml Route: IV; Rate: bolus; Site: right forearm; rr5 07:03 Follow up: Response: No adverse reaction; IV Status: Completed infusion; IV Intake: rr5 500ml 05:48 Drug: Demerol 25 mg {Note: rass 0.} Route: IVP; Site: right forearm; rr5 07:03 Follow up: Response: No adverse reaction; Pain is decreased; RASS: Alert and Calm (0) rr5 09:05 Drug: Zosyn 3.375 grams Route: IVPB; Infused Over: 60 mins; Site: right forearm; bp 10:08 Follow up: IV Status: Completed infusion; IV Intake: 100ml bp 09:05 Drug: NS 0.9% 1000 ml Route: IV; Rate: 125 ml/hr; Site: right forearm; bp 11:11 Follow up: IV Status: Infusion continued upon admission bp 09:05 Drug: NS 0.9% 500 ml Route: IV; Rate: bolus; Site: right forearm; bp 10:08 Follow up: IV Status: Completed infusion; IV Intake: 500ml bp Disposition: 10/11/19 09:04 Hospitalization ordered by Jack Lopez for Inpatient Admission. Preliminary diagnosis are Abdominal tenderness, Volume depletion, Dehydration, Type 2 diabetes mellitus, Cholecystitis, Obesity, unspecified, Elevated white blood cell count. - Bed requested for Telemetry/MedSurg (Inpatient). - Status is Inpatient Admission. aa5 - Condition is Stable. - Problem is new. - Symptoms have improved. Signatures: Dispatcher [employer] EDMS Jose Martin Frey MD MD cha Nieto, Roman, MD MD rn Calderon, Audri, RN RN aa5 Cesia Perry RN RN lp1 JocelynnFaustino brooke, SCREW MACHINE REPAIRER-C SCREW MACHINE REPAIRER-Cla1 Mario Iniguez, RN RN Ekaterina Bowen Raymond, RN RN rr5 Corrections: (The following items were deleted from the chart) 05:05 04:53 ECG was reviewed by the Attending Physician. rn rn 10:46 09:04 Hospitalization Ordered by Jack Lopez DO for Inpatient Admission. Preliminary eb diagnosis is Abdominal tenderness; Volume depletion; Dehydration; Type 2 diabetes mellitus; Cholecystitis; Obesity, unspecified; Elevated white blood cell count. Bed requested for Telemetry/MedSurg (Inpatient). Status is Inpatient Admission. Condition is Stable. Problem is new. Symptoms have improved. zoe 11:50 10:46 10/11/2019 09:04 Hospitalization Ordered by Jack Lopez DO for Inpatient aa5 Admission. Preliminary diagnosis is Abdominal tenderness; Volume depletion; Dehydration; Type 2 diabetes mellitus; Cholecystitis; Obesity, unspecified; Elevated white blood cell count. Bed requested for Telemetry/MedSurg (Inpatient). Status is Inpatient Admission. Condition is Stable. Problem is new. Symptoms have improved. eb
--- NOTE | 2019-10-11 09:04 | ER ---
Nurse's Notes [facility] Name: Sabra Rodriguez Jr Age: 63 yrs Sex: Male : 1955 Arrival Date: 10/11/2019 Time: 04:31 Bed 6 Private MD: Diagnosis: Abdominal tenderness;Volume depletion;Dehydration;Type 2 diabetes mellitus;Cholecystitis;Obesity, unspecified;Elevated white blood cell count Presentation: 10/10 04:42 Chief complaint: Patient states: RUQ abdominal pain x 1 week; severe pain this morning lp1 at 0300; Currently taking antibiotics from previous ER visit with no improvement; Denies any nausea, vomiting. Coronavirus screen: Proceed with normal triage. Ebola Screen: No symptoms or risks identified at this time. Initial Sepsis Screen: Does the patient meet any 2 criteria? No. Patient's initial sepsis screen is negative. Does the patient have a suspected source of infection? No. Patient's initial sepsis screen is negative. Risk Assessment: Do you want to hurt yourself or someone else? Patient reports no desire to harm self or others. Onset of symptoms was October 11, 2019. 04:42 Method Of Arrival: Ambulatory lp1 04:42 Acuity: KRISTINA 3 lp1 Historical: - Allergies: 04:44 No Known Allergies; lp1 - Home Meds: 04:56 bisoprolol-hydrochlorothiazide oral oral [Active]; ciprofloxacin [Active]; losartan rr5 Oral [Active]; Metformin Oral [Active]; Metronidazole Oral [Active]; - PMHx: 04:44 Hypertension; Diabetes - NIDDM; lp1 - PSHx: 04:44 Appendectomy; lp1 - Immunization history:: Adult Immunizations up to date. - Social history:: Smoking status: Patient denies any tobacco usage or history of. - Family history:: not pertinent. - Hospitalizations: : No recent hospitalization is reported. Screenin:44 Abuse screen: Denies threats or abuse. Denies injuries from another. Nutritional lp1 screening: No deficits noted. Tuberculosis screening: No symptoms or risk factors identified. 04:55 Fall Risk None identified. rv Assessment: 04:54 General: Appears comfortable, Behavior is calm, cooperative. Pain: Complains of pain in rv right upper quadrant. Pain: Quality of pain is described as sharp. Neuro: Level of Consciousness is awake, alert, obeys commands, Oriented to person, place, time, situation. Cardiovascular: Patient's skin is warm and dry. Respiratory: Airway is patent Respiratory effort is even, unlabored. GI: Abdomen is round non-distended, Bowel sounds present X 4 quads. Abd is soft and non tender X 4 quads. Reports upper abdominal pain. : No signs and/or symptoms were reported regarding the genitourinary system. Derm: Skin is healthy with good turgor. 04:58 Reassessment: oral contrast consumed CT staff informed. rr5 05:52 Reassessment: Patient appears in no apparent distress at this time. Patient and/or rr5 family updated on plan of care and expected duration. Pain level reassessed. Patient is alert, oriented x 3, equal unlabored respirations, skin warm/dry/pink. awaiting for CT procedure. IV fluid hydration started. 06:45 Reassessment: Patient appears in no apparent distress at this time. Patient is alert, rr5 oriented x 3, equal unlabored respirations, skin warm/dry/pink. awaiting for CT result. 07:00 Reassessment: RECD REPORT FROM FRANCOIS GARNETT. 63YO HM P/W RUQ PAIN. ALL CURRENT STUDIES bp COMPLETED, RESULTS PENDING. PT SEEN FOR SAME RECENTLY AND CLEARED WITH NO PATHOLOGICAL FINDINGS. 08:00 Reassessment: NO S/S ACUTE DISTRESS. AWAITING CT RESULTS. bp 09:10 Reassessment: ADMIT INITIATED. SURG C/S PENDING. PT TBA FOR CHOLECYSTITIS. bp 10:10 Reassessment: ADMIT IN PROCESS. VS STABLE ON MONITOR. bp 11:10 Reassessment: ADMIT COMPLETE. BED ASSIGNED. bp Vital Signs: 04:42 BP 122 / 53; Pulse 74; Resp 20; Temp 97.2; Pulse Ox 98% on R/A; Weight 99.79 kg (R); lp1 Height 5 ft. 5 in. (165.10 cm); Pain 8/10; 05:49 BP 137 / 55; Pulse 68; Resp 19; Pulse Ox 99% on R/A; rr5 06:45 BP 129 / 52; Pulse 69; Resp 18; Pulse Ox 97% ; rr5 08:00 BP 110 / 63; Pulse 64; Resp 15; Pulse Ox 96% ; bp 09:10 BP 108 / 51; Pulse 73; Resp 16; Pulse Ox 99% ; bp 10:50 BP 104 / 42; Pulse 68; Resp 16; Pulse Ox 98% ; bp 04:42 Body Mass Index 36.61 (99.79 kg, 165.10 cm) lp1 ED Course: 04:31 Patient arrived in ED. ag3 04:33 Zhao Tomlinson RN is Primary Nurse. rv 04:35 Solomon Blue MD is Attending Physician. rn 04:43 Triage completed. lp1 04:43 Arm band placed on. lp1 04:54 Richard Huang RN is Primary Nurse. rr5 04:55 Patient has correct armband on for positive identification. Pulse ox on. NIBP on. rv 04:55 Inserted saline lock: 20 gauge in right forearm, using aseptic technique. Blood rr5 collected. 04:59 EKG done, by ED staff, reviewed by Solomon Blue MD. rr5 06:50 CT Abd/Pelvis - PO and IV Contrast In Process Unspecified. EDMS 07:03 Primary Nurse role handed off by Richard Huang RN bp 07:03 Mario Iniguez RN is Primary Nurse. bp 07:08 Attending Physician role handed off by Solomon Blue MD zoe 07:08 Jose Martin Frey MD is Attending Physician. zoe 09:02 Jack Lopez DO is Hospitalizing Provider. zoe 11:11 No provider procedures requiring assistance completed. Patient admitted, IV remains in bp place. Administered Medications: 05:48 Drug: NS 0.9% 500 ml Route: IV; Rate: bolus; Site: right forearm; rr5 07:03 Follow up: Response: No adverse reaction; IV Status: Completed infusion; IV Intake: rr5 500ml 05:48 Drug: Demerol 25 mg {Note: rass 0.} Route: IVP; Site: right forearm; rr5 07:03 Follow up: Response: No adverse reaction; Pain is decreased; RASS: Alert and Calm (0) rr5 09:05 Drug: Zosyn 3.375 grams Route: IVPB; Infused Over: 60 mins; Site: right forearm; bp 10:08 Follow up: IV Status: Completed infusion; IV Intake: 100ml bp 09:05 Drug: NS 0.9% 1000 ml Route: IV; Rate: 125 ml/hr; Site: right forearm; bp 11:11 Follow up: IV Status: Infusion continued upon admission bp 09:05 Drug: NS 0.9% 500 ml Route: IV; Rate: bolus; Site: right forearm; bp 10:08 Follow up: IV Status: Completed infusion; IV Intake: 500ml bp Intake: 07:03 IV: 500ml; Total: 500ml. rr5 10:08 IV: 500ml; Total: 1000ml. bp 10:08 IV: 100ml; Total: 1100ml. bp Outcome: 09:04 Decision to Hospitalize by Provider. zoe 11:12 Admitted to Med/surg accompanied by tech, via wheelchair, room 218, with chart, Report bp called to FREDDY GARNETT 11:17 Condition: stable bp 11:17 Instructed on the need for admit. 11:30 Patient left the ED. aa5 Signatures: Dispatcher [employer] EDJose Martin Porter MD MD cha Nieto, Roman, MD MD rn Calderon, Audri, RN RN aa5 Cesia Perry RN RN lp1 Mario Iniguez RN RN Zhao Pinto, RN RN Isabella Rachel ag3 Richard Huang, RN RN rr5 Corrections: (The following items were deleted from the chart) 11:51 11:50 Patient left the ED. aa5 aa5
[2019-10-11] MEDS ORDERED: NA CHLORIDE 0.9% 1,000 ML ONE (09:05)
[2019-10-11] MEDS ORDERED: PIPER/TAZO/NS 3.375gm 3.375 GM/100 ML BAG ONE (09:05)
[2019-10-11] MEDS ORDERED: MORPHINE 2 MG/ML SYR IV PRN (09:49)
[2019-10-11] MEDS ORDERED: ACETAMINOPHEN 500 MG TAB PO PRN (09:49)
--- NOTE | 2019-10-11 10:35 | EKG ---
Test Date: 2019-10-11 Test Time: 05:02:04 Netting Weaver: RV MEASUREMENT RESULTS: Intervals: Rate: 76 RI: 132 QRSD: 156 QT: 432 QTc: 486 [place]: P: 40 RI: 132 QRS: -53 T: 35 INTERPRETIVE STATEMENTS: Normal sinus rhythm Right bundle branch block Left anterior fascicular block Bifascicular block Abnormal ECG Compared to ECG 04/14/2019 09:46:10 Right bundle-branch block now present Left anterior fascicular block now present Bifascicular block now present Left-axis deviation no longer present Electronically Signed On 10-11-19 10:34:39 CDT by David Olson
--- NOTE | 2019-10-11 10:53 | P.HP ---
Certification for Inpatient Patient admitted to: Observation With expected LOS: <2 Midnights Patient will require the following post-hospital care: None Practitioner: I am a practitioner with admitting privileges, knowledge of patient current condition, hospital course, and medical plan of care. Services: Services provided to patient in accordance with Admission requirements found in Title 42 Section 412.3 of the Code of Federal Regulations <Faustino Felix - Last Filed: 10/11/19 10:48> Patient admitted to: Observation With expected LOS: <2 Midnights <Jack Lopez - Last Filed: 10/11/19 17:54> Patient History Date of Service: 10/11/19 Reason for admission: Cholecystitis History of Present Illness: 63-year-old male with history of hypertension and diabetes mellitus type 2 presents emergency department with a 1 week history of right upper quadrant abdominal pain, worsening this morning. Patient states he has had very little appetite is in addition. Patient was on antibiotic therapy with Cipro and Flagyl from a previous emergency department visit. During his workup in the emergency department patient was found to have cholecystitis in addition to an elevated white blood cell count. ED provider consulted with surgery while the patient was in the emergency department will see the patient. When I saw the patient in the emergency department he appeared uncomfortable but calm and cooperative. Patient does not appear septic at this time, vital signs within normal limits. Patient will be admitted with consult to Surgery for further evaluation management. Home medications list reviewed: Yes - Past Medical/Surgical History Diabetic: Yes -: Diabetes mellitus type 2 -: Hypertension Past Surgical History: Reviewed- Non-Contributory Psychosocial/ Personal History: Patient lives at home with his family. - Social History Smoking Status: Never smoker Alcohol use: No CD- Drugs: No Caffeine use: Yes Place of Residence: Home <Faustino Felix - Last Filed: 10/11/19 10:48> Date of Service: 10/11/19 History of Present Illness: Patient seen and examined. Agree with history, evaluation, exam and plan of care. - Past Medical/Surgical History -: Obesity - Family History Family History: Reviewed- Non-Contributory <Jack Lopez - Last Filed: 10/11/19 17:54> Allergies No Known Allergies Allergy (Unverified 10/11/19 10:36) Review of Systems General: Unremarkable Eyes: Unremarkable ENT: Unremarkable Respiratory: Unremarkable Cardiovascular: Unremarkable Gastrointestinal: Nausea, Abdominal Pain (Right upper quadrant) Genitourinary: Unremarkable Musculoskeletal: Unremarkable Integumentary: Unremarkable Neurological: Unremarkable <Faustino Felix - Last Filed: 10/11/19 10:48> Physical Examination - Physical Exam General: Alert, In no apparent distress, Oriented x3 HEENT: Atraumatic, Normocephalic Neck: Supple Respiratory: Clear to auscultation bilaterally, Normal air movement Cardiovascular: No edema Capillary refill: <2 Seconds Gastrointestinal: Normal bowel sounds, Tenderness (Mild tenderness right upper quadrant) Musculoskeletal: No swelling Integumentary: No rashes, No breakdown Neurological: Normal speech, Normal tone - Studies Laboratory Data (last 24 hrs) 10/11/19 04:45: Creatinine 1.52 H 10/11/19 04:45: WBC 13.2 H, Hgb 10.1 L, Hct 30.0 L D, Plt Count 245 D 10/11/19 04:45: Sodium 139, Potassium 3.6, BUN 29 H, Creatinine 1.46 H, Glucose 204 H, Total Bilirubin 0.5, AST 22, ALT 27, Alkaline Phosphatase 109, Lipase 130 <Faustino Felix - Last Filed: 10/11/19 10:48> - Physical Exam Gastrointestinal: Other (On my examination patient without significant pain Patient currently tolerating his diet.) - Studies Laboratory Data (last 24 hrs) 10/11/19 04:45: Creatinine 1.52 H 10/11/19 04:45: WBC 13.2 H, Hgb 10.1 L, Hct 30.0 L D, Plt Count 245 D 10/11/19 04:45: Sodium 139, Potassium 3.6, BUN 29 H, Creatinine 1.46 H, Glucose 204 H, Total Bilirubin 0.5, AST 22, ALT 27, Alkaline Phosphatase 109, Lipase 130 <Jack Lopez - Last Filed: 10/11/19 17:54> Assessment and Plan - Plan Assessment Right upper quadrant abdominal pain secondary to acute cholecystitis with elevated white blood cell count Moderate chronic kidney disease Diabetes mellitus type 2 Hypertension Obesity Plan Right upper quadrant abdominal pain secondary to acute cholecystitis with elevated white blood cell count- emergency department provider spoke with general surgeon the patient is in the emergency department will see this patient. Patient to receive IV antibiotics and placed NPO. Will repeat a CBC in the morning. Will await further input from general surgery regarding the management of this condition. DVT prophylaxis withheld at time due to possible surgical procedure. Moderate chronic kidney disease-creatinine 1.46, GFR is 49. This could be attributed to dehydration, will attempt to hydrate patient with IV fluids and check a BMP tomorrow morning. This can be further managed on an outpatient basis. Patient reports that he is supposed to be seeing a well shooter on an outpatient basis. Diabetes mellitus type 2- will obtain and continue patient's home medications. Hypertension- will obtain and continue patient's home medications as appropriate. Obesity- will provide dietary guidelines and exercise recommendations. Discharge Plan: Home Plan to discharge in: 24 Hours - Advance Directives Does patient have a Living Will: No Does patient have a Durable POA for Healthcare: No - Code Status/Comfort Care Code Status Assessed: Yes (Patient is full code) Critical Care: No Time Spent Managing Pts Care (In Minutes): 55 <Faustino Felix - Last Filed: 10/11/19 10:48> - Plan Case discussed at length with nurse practitioner Faustino Felix. The patient examined. Discuss in detail about plan of care. Also discuss with surgery. Will start IV fluids. Will continue with IV antibiotic therapy. Surgery will advance diet slowly. If all possible surgery plans to discharge patient tomorrow and continue with oral antibiotic therapy. Surgery desires to have the gallbladder taken out as an outpatient. Will continue to review lab closely. Accu-Cheks and sliding scale in place. Will need to restart home medication. Case discussed with patient who agrees with plan of care <Jack Lopez - Last Filed: 10/11/19 17:54>
[2019-10-11 10:54] LABS: Urine Blood 1+ (NEG); Urine Glucose TRACE (NEG); Urine Protein 3+ (NEG)
[2019-10-11] MEDS: INSULIN -REGULAR HUMAN 50 UNIT/0.5 ML ML SQ SCH ×3 (11:30→21:00)
[2019-10-11 12:07] VITALS: BMI 41.5
[2019-10-11] MEDS: NA CHLORIDE 0.9% 1,000 ML IV SCH ×2 (12:12→18:25)
[2019-10-11] MEDS ORDERED: PNEUMOCOCCAL VACCINE 0.5 ML IMVAC ONE (15:00)
--- NOTE | 2019-10-11 16:37 | RAD REPORT ---
EXAM DESCRIPTION: CT Abdomen and Pelvis With Intravenous Contrast CLINICAL HISTORY: The patient is 63 years old and is Male; ABD PAIN TECHNIQUE: Axial computed tomography images of the abdomen and pelvis with intravenous contrast. S agittal and coronal reformatted images were created and reviewed. This CT exam was performed using one or more of the following dose reduction techniques: automated exposure control, adjustment of t he mA and/or kV according to patient size, and/or use of iterative reconstruction technique. COMPARISON: CT abdomen pelvis with contrast October 05, 2019. FINDINGS: Lung bases: Unremarkable. No mass. No consolidation. ABDOMEN: Liver: Unremarkable. No mass. Gallbladder and bile ducts: Distended gallbladder with pericholecystic inflammation, suspicious f or cholecystitis. No calcified stones visualized. No ductal dilation. Pancreas: No findings to suggest acute pancreatitis. No mass visualized. No ductal dilation. Spleen: Unremarkable. No splenomegaly. Adrenals: Unremarkable. No mass. Kidneys and ureters: Bilateral perinephric stranding and minimal fluid, nonspecific. No solid renal lesion or hydronephrosis. Stomach and bowel: No bowel dilatation or obstruction. No bowel wall thickening. PELVIS: Appendix: The appendix is not visualized. No pericecal inflammation to suggest acute appendiciti s. Bladder: Unremarkable. No mass. Reproductive: Unremarkable as visualized. ABDOMEN and PELVIS: Intraperitoneal space: Trace free fluid in the right paracolic gutter and pelvis. No free air. N o abscess. Bones/joints: Degenerative changes in the hips. Partial ankylosis of the SI joints. No acute fra cture visualized. No dislocation. Soft tissues: Unremarkable. Vasculature: Unremarkable. No abdominal aortic aneurysm. Lymph nodes: No pathologically enlarged lymph nodes. IMPRESSION: 1. Distended gallbladder with pericholecystic inflammation, suspicious for cholecystitis. Pericholec ystic inflammation is new compared with October 05, 2019. No calcified stones visualized. 2. Bilateral perinephric stranding and minimal fluid, nonspecific. This is not significantly change d from the prior exam. 3. Additional non-emergent findings as above. Electronically signed by: Cathie Ramachandran MD 10/11/2019 7:09 AM CDT Due to temporary technical issues with the PACS/Fluency reporting system, reports are being signed by the in house radiologist as a courtesy to ensure prompt reporting. The interpreting radiologist is f alvinaly responsible for the content of the report.
[2019-10-11] MEDS: PIPER/TAZO/NS 3.375gm 3.375 GM/100 ML BAG IVPB SCH (16:56)
[2019-10-11] MEDS ORDERED: POTASSIUM 25 MEQ EFFERV TAB PO ONE (17:00)
[2019-10-11] MEDS ORDERED: PIPER/TAZO/NS 3.375gm 3.375 GM/100 ML BAG IVPB SCH ×2 (17:00→21:00)
--- NOTE | 2019-10-11 20:53 | CON ---
Date of Consultation: 10/11/2019 Brief History Of Present Illness: Patient is a 63-year-old male with past medical history o f hypertension, diabetes, who presents with approximately 1-week history of epigastric and right uppe r quadrant abdominal pain. Beginning 1 week ago, he started having some pain associated with fatty, greasy [place]i-type food. He came to the emergency room, was given antibiotics and had significant i mprovement of symptoms. However, yesterday, he starting Portuguese fries again and around 3 in the morni ng he started having abdominal pain, came to the ER at this point and had sharp, stabbing epigastric and right upper quadrant abdominal pain. At that point, he said it was 10/10 in intensity, currently 2/10 to 3/10 at its worst, getting significantly better and now just described as a mild soreness. It feels like muscle strain in the right upper quadrant epigastrium. It was worse , there was a amy p stabbing pain with radiation to the back, all the symptoms have essentially resolved to the dull ac he he currently has. No nausea, no vomiting, no fever, no chills. No change in bowel or bladder hab its. No COVID exposures. No recent travel. No sick contacts. No recent new food exposures. Past Medical History: Significant for diabetes, hypertension. Past Surgical History: Appendectomy, open in the 1960s. Social History: He denies smoking, alcohol, recreational drug use. Allergies: NO KNOWN DRUG ALLERGIES. Medications: Reviewed. Physical Examination: Vital Signs: At the time of my examination, his BMI is 41.6. His blood pressure is 157/70, pulse 63 , respiratory rate 16, temperature 97.6. General: He is awake, alert, and oriented. Psychiatric: Appropriate. Conversive. HEENT: Normocephalic. Sclerae anicteric. Mucous membranes are moist. Oropharynx clear. Neck: Supple. No JVD. Chest: Normal expansion and excursion. Cardiovascular: Regular rate and rhythm. Pulmonary: Clear to auscultation bilaterally. Abdomen: Soft with mild epigastric and right upper quadrant tenderness to palpation. Negative Jesse y sign. No rebound. No guarding. No focal peritonitis. Abdomen: Obese generally. Skin: Warm and dry. Laboratory Data: Reveals a white blood cell count of 13.2, hemoglobin is 10.1, hematocrit 30.0, plat elet count is 245, neutrophils 85%. His sodium 139, potassium 3.6, chloride 108, carbon dioxide 24, BUN 29, creatinine 1.5, glucose is 204, calcium 8.0, total bilirubin 0.5, direct bilirubin 0.2, AST 2 2, ALT 27, alkaline phosphatase 109, lipase is 130. His UA showed 3+ total protein, 1+ blood, otherw ise negative. He had imaging performed, which included an abdominal pelvis CT. The official report is currently pending. However, preliminary report from the overnight radiologist officially read as distended gallbladder with mild pericholecystic inflammation suspicious for cholecystitis. Perichole cystic inflammation is new compared with October 05, 2019. No calcified gallstones visualized. Bilateral perinephric stranding and minimal fluid, nonspecific. It is not significantly changed from prior ex am. Additional nonemergent findings were noted with trace free fluid in the right pericolic gutter a nd pelvis. Had no ductal dilatation. Assessment And Plan: This is a 63-year-old male with an episode of likely resolving cholecystitis. 1.IV fluid hydration. 2.Antibiotic coverage. 3.Serial abdominal exams. 4.I have explained the risks, benefits, and alternatives of laparoscopic, possible open cholecystect manda including but not limited to bleeding, infection, damage to surrounding tissues, injury to bile d ucts, intestines, need for further operation and procedures, the patient would like to resolve this e pisode nonoperatively at this point and ultimately proceed with outpatient laparoscopic cholecystecto my. I have explained risks, benefits and alternatives of this above plan and I agree to proceed as indicated. Thank you for this interesting consult. VENUS/QUIANA Voice ID: [id number] Report ID: [id number]
[2019-10-12] MEDS: NA CHLORIDE 0.9% 1,000 ML IV SCH (05:34)
[2019-10-12] MEDS: PIPER/TAZO/NS 3.375gm 3.375 GM/100 ML BAG IVPB SCH ×3 (05:34→12:14)
[2019-10-12 05:54] LABS: Albumin 2.1 g/dL (3.4-5.0); Bilirubin Total 0.5 mg/dL (0.2-1.0); Magnesium 2.1 mg/dL (1.8-2.4); Potassium 4.1 mmol/L (3.5-5.1); Protein, Total 6.8 g/dL (6.4-8.2)
[2019-10-12 05:56] LABS: Absolute Lymphocytes (CBC) 1.3 K/uL (0.7-4.9); Basophils % 0.7 % (0-1.3); Hematocrit 28.5 % (39.6-49.0); Lymphocytes % 11.5 % (15.3-44.8); MPV 8.7 fL (7.6-11.3); RBC Red Blood Cell Count 3.25 M/uL (4.33-5.43)
[2019-10-12] MEDS: INSULIN -REGULAR HUMAN 50 UNIT/0.5 ML ML SQ SCH ×2 (07:30→11:30)
--- NOTE | 2019-10-12 09:04 | P.PN ---
Subjective Date of Service: 10/12/19 Chief Complaint: Cholecystitis Subjective: Improving Physical Examination - Vital Signs Temperature: 97.2 F Blood Pressure: 175/81 Pulse: 68 Respirations: 17 Pulse Ox (%): 96 - Physical Exam General: Alert, Cooperative HEENT: Mucous membr. moist/pink Gastrointestinal: Other (soft, minimal global TTP, ND, minimal epigastric and upper abdominal pain, negative murphys) Assessment And Plan - Current Problems (Diagnosis) (1) Biliary colic Current Visit: Yes Status: Acute Plan: Advance diet - if tolerated can DC home with outpatient followup to plan for cholecystectomy if unable to tolerate, NPO after midnight and plan for OR in am
[2019-10-12 11:43] VITALS: O2SAT 97
--- NOTE | 2019-10-12 13:34 | P.DS ---
Admission Date: 10/11/19 Discharge Date: 10/12/19 Primary Care Provider: none Disposition: ROUTINE DISCHARGE Discharge Condition: GOOD Reason for Admission: Cholecystitis Consultations: Surgery-Dr. Soriano Procedures: CT scan: COMPARISON: CT abdomen pelvis with contrast October 05, 2019. FINDINGS: Lung bases: Unremarkable. No mass. No consolidation. ABDOMEN: Liver: Unremarkable. No mass. Gallbladder and bile ducts: Distended gallbladder with pericholecystic inflammation, suspicious for cholecystitis. No calcified stones visualized. No ductal dilation. Pancreas: No findings to suggest acute pancreatitis. No mass visualized. No ductal dilation. Spleen: Unremarkable. No splenomegaly. Adrenals: Unremarkable. No mass. Kidneys and ureters: Bilateral perinephric stranding and minimal fluid, nonspecific. No solid renal lesion or hydronephrosis. Stomach and bowel: No bowel dilatation or obstruction. No bowel wall thickening. PELVIS: Appendix: The appendix is not visualized. No pericecal inflammation to suggest acute appendicitis. Bladder: Unremarkable. No mass. Reproductive: Unremarkable as visualized. ABDOMEN and PELVIS: Intraperitoneal space: Trace free fluid in the right paracolic gutter and pelvis. No free air. No abscess. Bones/joints: Degenerative changes in the hips. Partial ankylosis of the SI joints. No acute fracture visualized. No dislocation. Soft tissues: Unremarkable. Vasculature: Unremarkable. No abdominal aortic aneurysm. Lymph nodes: No pathologically enlarged lymph nodes. IMPRESSION: 1. Distended gallbladder with pericholecystic inflammation, suspicious for cholecystitis. Pericholecystic inflammation is new compared with October 05, 2019. No calcified stones visualized. 2. Bilateral perinephric stranding and minimal fluid, nonspecific. This is not significantly changed from the prior exam. 3. Additional non-emergent findings as above. Medical Problem List: Right upper quadrant abdominal pain secondary to acute cholecystitis Diabetes mellitus type 2 Hypertension Suspect GERD Brief History of Present Illness: 63-year-old male with history of diabetes and hypertension presented to the emergency room with right upper quadrant abdominal pain. CT scan revealed acute cholecystitis. Patient was admitted for further evaluation. Hospital Course: Patient presented with right upper quadrant abdominal pain. Patient was admitted for further evaluation and treatment. CT scan revealed possible cholecystitis. Patient was given IV fluids and antibiotic therapy. Patient seen and evaluated by surgery. If the patient continued to do well. Surgery recommended no surgical intervention at this time. Surgery wanted the patient to continue with antibiotics at home and proceed with outpatient cholecystectomy. Patient agreed. Patient was given a diabetic diet and tolerated this well. No further pain, nausea or vomiting noted. At discharge patient will continue with a low- fat diabetic diet. Patient will also continue with Augmentin 500 mg twice daily for 7 days. Patient will need a follow up with surgery in 1 week to follow up this hospitalization and arrange outpatient cholecystectomy. Patient with diabetes mellitus type 2. Blood sugars were well controlled. A1c 9.2. Patient takes Glucophage. At discharge patient may continue with Glucophage 1000 mg 1 pill twice daily. Recommend to maintain blood sugars less 140 fasting and less than 200 after meals. Further adjustment in medication may be required for better diabetic control. Additional medication can be further addressed by his PCP. Patient with hypertension. This is remained stable. At discharge patient may continue with Bisprolol-hydrochlorothiazide 5/6.25 mg daily and losartan 100 mg daily. Recommend to maintain blood pressures less 150/80. Further adjustment can be done by his PCP. Patient likely with underlying GERD. At discharge patient will be provided Pepcid 20 mg twice daily. Vital Signs/Physical Exam: Temp Pulse Resp BP Pulse Ox 97.2 F 68 17 175/81 H 96 10/12/19 09:04 10/12/19 09:04 10/12/19 09:04 10/12/19 09:04 10/12/19 09:04 General: Alert, In no apparent distress, Oriented x3, Cooperative HEENT: Atraumatic Neck: Supple Respiratory: Clear to auscultation bilaterally, Normal air movement Cardiovascular: Normal pulses, Regular rate/rhythm Gastrointestinal: Normal bowel sounds, Soft and benign, Non-distended, No tenderness, No masses, No rebound, No guarding Musculoskeletal: No erythema, No tenderness, No warmth Integumentary: No tenderness/swelling, No erythema, No warmth, No cyanosis Neurological: Normal speech, Normal strength at 5/5 x4 extr, Normal tone, Normal affect Laboratory Data at Discharge: WBC 11.6 K/uL (4.3-10.9) H 10/12/19 05:09 Hgb 9.6 g/dL (13.6-17.9) L 10/12/19 05:09 Hct 28.5 % (39.6-49.0) L 10/12/19 05:09 Plt Count 247 K/uL (152-406) 10/12/19 05:09 Sodium 142 mmol/L (136-145) 10/12/19 05:09 Potassium 4.1 mmol/L (3.5-5.1) 10/12/19 05:09 BUN 16 mg/dL (7-18) 10/12/19 05:09 Creatinine 1.00 mg/dL (0.55-1.3) 10/12/19 05:09 Glucose 150 mg/dL (74-106) H 10/12/19 05:09 Magnesium 2.1 mg/dL (1.8-2.4) 10/12/19 05:09 Total Bilirubin 0.5 mg/dL (0.2-1.0) 10/12/19 05:09 AST 18 U/L (15-37) 10/12/19 05:09 ALT 25 U/L (12-78) 10/12/19 05:09 Alkaline Phosphatase 107 U/L (45-117) 10/12/19 05:09 Lipase 130 U/L (73-393) 10/11/19 04:45 Home Medications: Aspirin 1 tab PO DAILY 10/11/19 Bisoprolol Fumarate/Hctz [Bisoprolol-Hctz 5-6.25 mg Tab] 1 tab PO DAILY 10/11/19 Losartan Potassium 100 mg PO DAILY 10/11/19 Metformin ER [Glucophage ER*] 2 tab PO BID 10/11/19 Amoxicillin/Potassium Clav [Augmentin 500-125 Tablet] 1 each PO BID #14 tablet 10/12/19 Famotidine [Pepcid] 20 mg PO BID #60 tab 10/12/19 New Medications: Amoxicillin/Potassium Clav [Augmentin 500-125 Tablet] 1 each PO BID #14 tablet Famotidine [Pepcid] 20 mg PO BID #60 tab Patient Discharge Instructions: 1. Recommend follow up with PCP and surgery within 1 week. 2. Patient presented with right upper quadrant abdominal pain. Patient was admitted for further evaluation and treatment. CT scan revealed possible cholecystitis. Patient was given IV fluids and antibiotic therapy. Patient seen and evaluated by surgery. If the patient continued to do well. Surgery recommended no surgical intervention at this time. Surgery wanted the patient to continue with antibiotics at home and proceed with outpatient cholecystectomy. Patient agreed. At discharge patient will continue with a low-fat diabetic diet. Patient will also continue with Augmentin 500 mg twice daily for 7 days. Patient will need a follow up with surgery in 1 week to follow up this hospitalization and arrange outpatient cholecystectomy. 3. Patient with diabetes mellitus type 2. Blood sugars were well controlled. A1c 9.2. Patient takes Glucophage. At discharge patient may continue with Glucoph age 1000 mg 1 pill twice daily. Recommend to maintain blood sugars less 140 fasting and less than 200 after meals. Further adjustment in medication may be required for better diabetic control. Additional medication can be further addressed by his PCP. 4. Patient with hypertension. This is remained stable. At discharge patient may continue with Bisprolol-hydrochlorothiazide 5/6.25 mg daily and losartan 100 mg daily. Recommend to maintain blood pressures less 150/80. Further adjustment can be done by his PCP. 5. Patient likely with underlying GERD. At discharge patient will be provided Pepcid 20 mg twice daily. Diet: ADA (Low fat diet) Activity: Ad tyrone Time spent managing pt's care (in minutes): 55
[2019-10-12 14:15] VITALS: BP 189/81; TEMP 97.4
[2019-10-12] MEDS ORDERED: LOSARTAN POTASSIUM 50 MG TABLET PO SCH (15:00)
[2019-10-12] MEDS ORDERED: ASPIRIN 81 MG CHEWABLE TABLET PO SCH (15:00)
[2019-10-12] MEDS ORDERED: METFORMIN ER 500 MG TAB PO SCH (17:00)
[2019-10-13] MEDS ORDERED: HCTZ PO SCH (09:00)
[2019-10-13] MEDS ORDERED: BISOPROLOL FUMARATE PO SCH (09:00)
[2019-10-13] MEDS ORDERED: HOME MED 1 EA UNK (Losartan Potassium [Losartan Potassium] 100 MG) PO SCH (09:00)
== END 2019-10-12 15:46 | disposition home or self-care (01) ==
LOC: ER 04:28 → ERHOLD 09:48 → 2ND 11:20
PROVIDERS: ADMIT Family Medicine; ATTEND Family Medicine
DX: K80.42 Calculus of bile duct with acute cholecystitis without obstruction (principal); I10 Essential (primary) hypertension; E11.9 Type 2 diabetes mellitus without complications; E11.22 Type 2 diabetes mellitus with diabetic chronic kidney disease; I12.9 Hypertensive chronic kidney disease with stage 1 through stage 4 chronic kidney disease, or unspecified chronic kidney disease; N18.9 Chronic kidney disease, unspecified; E66.9 Obesity, unspecified; Z68.41 Body mass index [BMI] 40.0-44.9, adult; Z23 Encounter for immunization
CPT/HCPCS: 96365; 96361; 93005; 85025 ×2; 80048; 36415 ×2; 83735; 82947 ×5; 80076; 81003; 83036; 84484; 83690; 80053; 74177; 90471; 90670; 96375; 99285; Q9967; J2543 ×2; J2175; J7040 ×2; J7030 ×3; G0378 ×3

== ENCOUNTER 2019-11-04 08:37 | Inpatient (IN) | payer BC, OTHER ==
[2019-11-04] MEDS ORDERED: CEFOXITIN/SWI 2gm 2 GM/20 ML SYR IV ONE (09:15)
--- OUTSIDE RECORDS SUMMARY | 2019-11-04 10:22 | XMS REPORT ---
:1955 Author Organization [facility] t Address [address] [place] [address] Care Team Providers Name Role Phone Unavailable Unavailable Unavailable Problems Condition Condition Condition Status Onset Resolution Last Treating Co mments Source Name Details Category Date Date Treatment Clinician Date BMI BMI Problem Active [facility] 40.0-44.9, 40.0-44.9, Ananya kes - adult adult [facility]oria l [facility] Nocturia Nocturia Problem [facility] Type 2 Type [address] [facility] diabetes diabetes [facility] - mellitus mellitus Memori a with with l hyperglyce hyperglyce Ou tpati annita annita ent Clinics HTN, goal HTN, goal Problem Active [facility] below below [facility] - 130/80 130/80 [facility] l [facility] Type 2 Type [address] [facility] diabetes diabetes [facility] - mellitus mellitus Memori a with with l diabetic diabetic Outpat i nephropath nephropath en t y y Clinics Mixed Mixed Problem Active [facility] hyperlipid hyperlipid Ananya kes - emia emia [facility]oria l [facility] Proteinuri Proteinuri Problem Active [facility], [facility], [facility] - unspecifie unspecifie Me moria d type d type l [facility] Clinics Allergies, Adverse Reactions, Alerts This patient has no known allergies or adverse reactions. Medications Ordered Filled Start Stop Current Ordering Indication Dosage Frequency Signature Comments Components Source Medication Medication Date Date Medication? Clinician (SIG) Name Name Lisinopril- Lisinopril- 2018-0 Yes Hayder [address] [facility] Hydrochloro Hydrochloro 7-16 [facility] - thiazide thiazide 00:00: Memor ia 00 l [facility] ent Clinics GlipiZIDE GlipiZIDE 2017- Yes Hayder [address] [facility] 6-06 [facility] - 00:00: Memoria 00 Outpati ent Clinics Rosadijocelyne Muroance 2018- 2018- No Hayder [address] [facility] 10-20 [facility] Lisinopril- Lisinopril- Yes Hayder [address] [facility] Hydrochloro Hydrochloro [facility] - thiazide thiazide [facility] Outpati ent Clinics Simvastatin Simvastatin Yes Hayder [address] [facility] Guardado in the [facility] - evening [facility] Out[facility] ent Clinics Metformin Metformin Yes Hayder [address] [facility] HCl HCl [facility]ado with a [facility] - meal [facility] Procedures This patient has no known procedures. Encounters Start End Encounter Admission Attending Care Care Encounter Source Date/Time Date/Time Type Type Clinicians Facility Department ID 2017-12-18 2017-12-18 Outpatient Graham [facility] [id number] [facility] 14:00:00 14:00:00 [employer] [facility] Medicine Outpati ent Clinics 2017-10-23 2017-10-23 Outpatient Graham [facility] [id number] [facility] 15:32:00 15:32:00 [employer] [facility] Medicine Outpati ent Clinics 2017-10-20 2017-10-20 Outpatient Graham [place] [id number] [facility] 10:30:00 10:30:00 [facility] Clinics 2017-10-02 2017-10-02 Outpatient Graham [place] [id number] [facility] 10:30:00 10:30:00 [employer] [facility] Outpati ent Clinics Results This patient has no known results.
[2019-11-04] MEDS ORDERED: BUPIVACA 0.25%/EPI 0.0005% MDV 50 ML VIAL ONE (10:44)
[2019-11-04] MEDS ORDERED: FENTANYL CITR 100 MCG/2 ML ONE ×2 (10:46→13:11)
[2019-11-04] MEDS ORDERED: propofoL 200 MG/20 ML VIAL IV ONE (10:46)
[2019-11-04] MEDS ORDERED: MIDAZOLAM HCL 2 MG/2 ML INJ ONE (10:46)
[2019-11-04] MEDS ORDERED: LIDOCAINE 1% MPF 5 ML VIAL ONE (10:47)
[2019-11-04] MEDS ORDERED: ROCURONIUM 50 MG/5 ML VIAL IV ONE (10:47)
[2019-11-04] MEDS ORDERED: dexAMETHasone 10 MG/ML VIAL ONE (11:54)
[2019-11-04] MEDS ORDERED: LABETALOL 20 MG/4ML SYRINGE IV ONE (11:54)
[2019-11-04] MEDS ORDERED: ONDANSETRON 4 MG/2 ML VIAL ONE (12:08)
[2019-11-04] MEDS ORDERED: NS 0.9% VIAL 10 ML ONE (12:09)
[2019-11-04] MEDS ORDERED: Phenylephrine HCl 10 MG/ML 1 ML VIAL ONE (12:09)
[2019-11-04] MEDS ORDERED: NEOSTIGMINE 1 MG/ML -5 ML ONE (12:50)
[2019-11-04] MEDS ORDERED: KETOROLAC 30 MG/ML INJ ONE (12:50)
[2019-11-04] MEDS ORDERED: GLYCOPYRROLATE 0.2 MG/ML SYR ONE (12:50)
[2019-11-04] MEDS ORDERED: NA CHLORIDE 0.9% 1,000 ML ONE (13:01)
[2019-11-04] MEDS ORDERED: SUCCINYLCHOLINE 20 MG/ML (10 ML) IV ONE (13:16)
--- NOTE | 2019-11-04 14:05 | P.OP ---
Preoperative diagnosis: Chronic Cholecystitis Postoperative diagnosis: Gangrenous Cholecystitis Primary procedure: Laparoscopic Subtotal Cholecystectomy Anesthesia: GETA + Local Estimated blood loss: <20cc Specimen: Gallbladder Findings: Gangrenous Cholecystitis Complications: None Drain(s): MARIBELL drain (10mm Flat) Implants: S[employer]icel Hemostatic Matrix Transferred to: Recovery Room Condition: Good
[2019-11-04] MEDS ORDERED: HYDROMORPHONE HCL 1 MG/ML INJ IV PRN (14:33)
[2019-11-04] MEDS ORDERED: ONDANSETRON 4 MG/2 ML VIAL IV PRN (14:33)
[2019-11-04 14:54] VITALS: BMI 38.0
[2019-11-04] MEDS: D5.45NS W/KCL 20MEQ 1,000 ML IV SCH (15:14)
[2019-11-04] MEDS: INSULIN -REGULAR HUMAN 50 UNIT/0.5 ML ML SQ SCH ×2 (15:33→20:50)
[2019-11-04] MEDS: PIPER/TAZO/NS 3.375gm 3.375 GM/100 ML BAG IVPB SCH (16:00)
[2019-11-04] MEDS: HYDROCODONE/APAP 7.5/325 MG TAB PO PRN (18:12)
[2019-11-04 23:15] VITALS: O2SAT 96
[2019-11-05] MEDS: PIPER/TAZO/NS 3.375gm 3.375 GM/100 ML BAG IVPB SCH ×2 (00:24→08:23)
--- NOTE | 2019-11-05 00:38 | OP ---
Date of Procedure: 11/04/2019 Surgeon: Logan Soriano MD, Preoperative Diagnosis: Chronic cholecystitis. Postoperative Diagnosis: Gangrenous cholecystitis with cholelithiasis. Procedure: Laparoscopic subtotal cholecystectomy. Anesthesia: General endotracheal plus local with 0.25% Marcaine with epinephrine. Estimated Blood Loss: Less than 20 mL. Specimen: Gallbladder. Findings: Gangrenous cholecystitis with significant inflammatory change, thick inflammatory rind and obscure and distorted anatomy down the Martir pouch due to gangrenous changes, obvious pus and inf ectious changes were evident in the gallbladder consistent with rupture. Drains: 10 mm flat MARIBELL drain placed in the subhepatic space. Implants: Surgicel hemostatic matrix. Disposition: Patient transferred to recovery room in good condition. Procedure In Detail: After informed was obtained, patient was brought to the operating room, prepped and draped in the usual sterile fashion. After adequate anesthesia, the supraumbilical area was ane sthetized with 0.25% Marcaine, sharply incised. A 5 mm trocar was introduced in the abdomen without evidence of complication. Insufflation was obtained to 15 mmHg at this time. No injury to vital str ucture upon entry in the abdomen was appreciated. Three additional trocars were placed from the righ t upper quadrant and the epigastrium, this was similarly anesthetized, sharply incised. A 5 mm troca r was introduced in the abdomen without evidence of complication. The umbilical trocar was then up-s ized to 12 mm under direct visualization without evidence of complication. Patient was positioned in the head up, right-side up position and the ratcheted grasper was used to attempt to grasp the patie nt's gallbladder, which was found to be completely encased in omentum. The omentum was taken down us ing a combination of electrocautery and blunt dissection to expose an obviously gangrenous green must sabrina yellow gallbladder. The inflammatory rind was taken off the anterior surface along with the omen jerrell attachments and blunt dissection along with gentle electrocautery was used to dissect down the Stone rtmann pouch. The area was dissected and the cystic duct and cystic artery were identified as the on ly 2 structures entering the gallbladder and these were both encircled and doubly ligated with titani um clips on the proximal side and singly on the distal side with the titanium clips. Endo Kristofer wer e then used to ligate the cystic duct. The cystic artery was sealed with the LigaSure device. I the n proceeded to bluntly dissect the gallbladder off the jhony structures. They were found to be quite significantly adhered to this area and as such had significant concern for ductal involvement/injury should I continue this course of dissection with significant inflammatory changes and gangrenous obv iously yellow mustard green discoloration of the gallbladder with a thick inflammatory rind and pus i n this area. Therefore, I performed a subtotal cholecystectomy by doing a dome down approach until a safe rim of residual tissue was removed. At this point, I placed the gallbladder into an EndoCatch bag along with the associated stones and sent off for pathologic examination. There was some bleedin g from the hepatic fossa proximally midway up the hepatic bed and this was controlled with LigaSure d evice with good hemostasis. The area was then irrigated multiple times and suctioned out until compl etely clear. I placed a piece of Surgicel hemostatic matrix in the subhepatic space in this area whe re previous bleeding had occurred. This was controlled with the LigaSure. I then irrigated the abdo men multiple times until completely clear with 3 L of saline and inspected. The clips were found to be in good anatomic position. Because the cystic duct was found to be quite short, it was difficult to attempt to place an Endoloop. I made 1 past attempt at the Endoloop, but was unable to do so. As such, the double titanium clips were left in the normal anatomic position. At this point, I inspect ed the hepatic fossa one last time and there was no bile leakage or bleeding and the effluent was suc tioned out. I inspected the Surgicel, it was found to be without any evidence of bleeding whatsoever and I left it in the subhepatic space. I then brought in a 10-Setswana flat MARIBELL drain through the [facility] t upper quadrant and secured in the subhepatic space by the previously placed clips. I then secured it to the skin after removing the trocar with a 2-0 nylon suture with good approximation. I then tur anatoly my attention to the patient's umbilical trocar site. Patient was placed back in neutral position and the umbilical trocar site was removed, irrigated, and closed with a Daniel-Yamilex suture passe r with 0 Vicryl in interrupted fashion, good approximation of tissues. The abdomen was completely de sufflated under direct visualization without evidence of complication. All skin incisions were copio usly irrigated, closed with interrupted berta. The patient tolerated the procedure well without ev idence of complication and transferred to PACU in good condition. All counts were correct at the end of the case. ZOIE Voice ID: [id number] Report ID: [id number]
[2019-11-05] MEDS: HYDROCODONE/APAP 7.5/325 MG TAB PO PRN (01:51)
[2019-11-05] MEDS: D5.45NS W/KCL 20MEQ 1,000 ML IV SCH (04:25)
[2019-11-05 06:12] LABS: Absolute Lymphocytes (CBC) 0.7 K/uL (0.7-4.9); Basophils % 0.2 % (0-1.3); Hematocrit 34.2 % (39.6-49.0); Lymphocytes % 4.8 % (15.3-44.8); RBC Red Blood Cell Count 3.92 M/uL (4.33-5.43)
[2019-11-05 06:20] LABS: Albumin 2.6 g/dL (3.4-5.0); Bilirubin Total 0.7 mg/dL (0.2-1.0); Magnesium 1.9 mg/dL (1.8-2.4); Phosphorus 2.5 mg/dL (2.5-4.9); Potassium 4.4 mmol/L (3.5-5.1); Protein, Total 7.1 g/dL (6.4-8.2)
[2019-11-05] MEDS: INSULIN -REGULAR HUMAN 50 UNIT/0.5 ML ML SQ SCH ×2 (07:30→11:30)
--- NOTE | 2019-11-05 11:36 | P.DS ---
Admission Date: 11/05/19 Discharge Date: 11/05/19 Disposition: TRANSFER TO [facility] Discharge Condition: GOOD Reason for Admission: Cholecystitis Consultations: none Procedures: Laparoscopic Subtotal Cholecystecomy - Problems (1) Gangrenous cholecystitis Current Visit: Yes Status: Acute Brief History of Present Illness: Patient is a 63 year old man with a longstanding history of multiple episodes of cholecystitis, he was recently seen in hospital with another attack, was discharged with instructions to follow up for surgical planning. He did well as outpatient but continued to have intermittent abdominal pain, diarrhea, as such he was scheduled for cholecystecotmy Hospital Course: Patient was outpatient scheduled laparoscopic cholecystectomy, which was complicated by gross gangrenous changes of gallbladder obscuring anatomy, as such he had subtotal cholecystectomy with MARIBELL drain placement in Subhepatic space. He appeared to have bile staining of MARIBELL drain, as such I have spoken with Dr. Royal Oliver @ [facility] who agrees to transfer patient for [facility] ation for bile leak with ERCP. There is no GI immigration judge at our facility. Patient is feeling well, much better than pre-op, however I have explained my concern for bile leak. As such he will be transferred to [facility] [place]. Vital Signs/Physical Exam: Temp Pulse Resp BP Pulse Ox 97.8 F 87 17 172/81 H 96 11/05/19 08:00 11/05/19 08:00 11/05/19 08:00 11/05/19 08:00 11/05/19 08:00 General: Alert, In no apparent distress, Cooperative HEENT: Normocephalic Respiratory: Clear to auscultation bilaterally, Normal air movement Gastrointestinal: Other (soft, mild appropriate TTP, ND, incisions clean, berta in place, MARIBELL drain has small amount of bile stained fluid) Integumentary: No rashes Neurological: Normal speech Laboratory Data at Discharge: WBC 13.8 K/uL (4.3-10.9) H 11/05/19 05:40 Hgb 11.5 g/dL (13.6-17.9) L 11/05/19 05:40 Hct 34.2 % (39.6-49.0) L 11/05/19 05:40 Plt Count 204 K/uL (152-406) 11/05/19 05:40 Sodium 139 mmol/L (136-145) 11/05/19 05:40 Potassium 4.4 mmol/L (3.5-5.1) 11/05/19 05:40 BUN 22 mg/dL (7-18) H 11/05/19 05:40 Creatinine 1.51 mg/dL (0.55-1.3) H 11/05/19 05:40 Glucose 239 mg/dL (74-106) H 11/05/19 05:40 Phosphorus 2.5 mg/dL (2.5-4.9) 11/05/19 05:40 Magnesium 1.9 mg/dL (1.8-2.4) 11/05/19 05:40 Total Bilirubin 0.7 mg/dL (0.2-1.0) 11/05/19 05:40 AST 19 U/L (15-37) 11/05/19 05:40 ALT 23 U/L (12-78) 11/05/19 05:40 Alkaline Phosphatase 77 U/L (45-117) 11/05/19 05:40 Home Medications: Aspirin 1 tab PO DAILY 10/11/19 Bisoprolol Fumarate/Hctz [Bisoprolol-Hctz 5-6.25 mg Tab] 1 tab PO DAILY 10/11/19 Losartan Potassium 100 mg PO DAILY 10/11/19 Metformin ER [Glucophage ER*] 2 tab PO BID 10/11/19 Famotidine [Pepcid] 20 mg PO BID #60 tab 10/12/19 Multivitamin [Multivitamins] 1 each PO DAILY 10/31/19 Lisinopril [Zestril] 1 tab PO DAILY 11/04/19 Patient Discharge Instructions: follow up after treatment at [facility] Diet: NPO Activity: No lifting more than 10 lbs
[2019-11-05 13:36] VITALS: BP 163/72; TEMP 97.9
== END 2019-11-05 12:07 | disposition short-term general hospital (02) | DRG 419 ==
LOC: OR 08:37 → 2ND 14:42 → OBSVTOIN 11-05 10:48
PROVIDERS: ADMIT Surgery; ATTEND Surgery
PROC: 0W9G40Z Drainage of Peritoneal Cavity with Drainage Device, Percutaneous Endoscopic Approach (ICD-10-PCS; 2019-11-04)
PROC: 0FT44ZZ Resection of Gallbladder, Percutaneous Endoscopic Approach (ICD-10-PCS; principal; 2019-11-04 10:00)
DX: K80.00 Calculus of gallbladder with acute cholecystitis without obstruction (principal); K82.A1 Gangrene of gallbladder in cholecystitis; I10 Essential (primary) hypertension; E11.9 Type 2 diabetes mellitus without complications; Z90.49 Acquired absence of other specified parts of digestive tract; Z79.899 Other long term (current) drug therapy; Z79.84 Long term (current) use of oral hypoglycemic drugs; Z20.828 Contact with and (suspected) exposure to other viral communicable diseases
CPT/HCPCS: 36415; 80053; 82947; 83735; 84100; 85025; 88304; 94760; G0378; J0330; J0694; J1100; J2250; J2370; J2405; J2543; J2704; J2710; J3010; J7030

== ENCOUNTER 2019-11-07 19:05 | Observation (INO) | payer BC ==
--- OUTSIDE RECORDS SUMMARY | 2019-11-07 19:09 | XMS REPORT | Clinical Summary ---
:1955 Author Organization [facility] Address [address] [place] [address] Care Team Providers Name Role Phone Unavailable Primary Care Provider Unavailable Allergies No Known Allergies Medications Medication Sig Dispensed Refills Start End Status Date Date multivitamin Take 1 capsule by 0 Active capsule mouth daily. sodium chloride 125 ml/hr. 0 11/07/19 Act deep 0.9% (NS) 20 infusion piperacillin-tazo Inject 3.375 g 0 11/07/19 Active bactam (ZOSYN) intravenously 20 MBP 3.375 g in every 6 (six) 100 mL NS hours. ondansetron Inject 2 mLs (4 mg 20 mL 0 11/07/19 Active (ZOFRAN) 4 mg/2 total) 20 mL injection intravenously every 6 (six) hours as needed. naloxone (NARCAN) Inject 0.25 mLs 1 mL 0 11/07/19 Active 0.4 mg/mL (0.1 mg total) 20 injection intravenously as needed. morphine 2 mg/mL Inject 1 mL (2 mg 0 11/07/19 Active injection total) 20 intravenously every 4 (four) hours as needed. Max Daily Amount: 12 mg metoprolol Take 1 tablet (25 0 11/07/19 A ctive tartrate mg total) by mouth 20 021 (LOPRESSOR) 25 MG 2 (two) times tablet daily. insulin lispro Inject 0-4 Units 10 mL 0 11/07/19 Active (HUMALOG) 100 subcutaneously 20 021 unit/mL injection every night as needed (High blood sugar). insulin lispro Inject 0-16 Units 10 mL 0 11/07/19 Active (HUMALOG) 100 subcutaneously as 20 021 unit/mL injection needed (High blood sugar). HYDROcodone-aceta Take 1 tablet by 30 tablet 0 11/07/1911/16 Active minophen (NORCO mouth every 4 20 020 7.5-325) 7.5-325 (four) hours as mg per tablet needed for up to 10 days. Max Daily Amount: 6 tablets hydrALAZINE Inject 0.5 mLs (10 1 mL 0 11/07/19 Active (APRESOLINE) 20 mg total) 20 mg/mL injection intravenously every 6 (six) hours as needed (SBP > 160). glucagon, human Inject 1 mL (1 mg 0 11/07/19 Active recombinant, 1 total) 20 mg/mL SolR intramuscularly as injection needed (blood sugar less than 70, patient unable to take PO, AND unable to give D50W due to lack of IV access). dextrose 50 % in Inject 25 mLs 0 11/07/19 Active water (DEXTROSE (12.5 g total) 20 50%, D50W,) Syrg intravenously as injection needed (blood sugar less than 70 and patient unable to take PO juice or soda). bisacodyL Place 1 12 suppository 0 11/07/19 Activ e (DULCOLAX) 10 mg suppository (10 mg 20 020 suppository total) rectally daily as needed for up to 10 days. bisacodyL Take 2 tablets (10 30 tablet 0 11/07/19 A ctive (DULCOLAX) 5 mg mg total) by mouth 20 020 EC tablet daily as needed for Constipation for up to 30 days. acetaminophen Take 2 tablets 30 tablet 0 11/07/19 A ctive (TYLENOL) 325 MG (650 mg total) by 20 021 tablet mouth every 4 (four) hours as needed for up to 360 days. metFORMIN Take 500 mg by 0 Disco ntinued (GLUCOPHAGE) 500 mouth 2 (two) 020 MG tablet times daily with breakfast and dinner. lisinopriL Take 20 mg by 0 Disco ntinued (PRINIVIL,ZESTRIL mouth daily. 020 ) 20 MG tablet aspirin 81 MG EC Take 81 mg by 0 06/04/2 Discontinued tablet mouth daily. 020 Active Problems Problem Noted Date Acute kidney injury 11/07/2019 Essential hypertension 11/07/2019 Non-insulin dependent type 2 diabetes mellitus 020 Bile leak, postoperative 11/06/2019 Encounters Date Type Specialty Care Team Description 11/06/2019 Anesthesia Event Gastroenterology Yamilet Lewis MD 11/06/2019 Surgery Gastroenterology OSCAR Contreras MD 11/06/2019 Travel 11/05/2019 - Hospital Encounter General Internal Medicine Brandon Torres on, 11/07/2019 11/05/2019 Orders Only General Internal Medicine after 11/06/2018 Social History Tobacco Use Types Packs/Day Years Used Date Never Assessed Sex Assigned at Date Recorded Not on file Job Start Date Occupation Industry Not on file Not on file Not on file Travel History Travel Start Travel End No recent travel history available. Last Filed Vital Signs Vital Sign Reading Time Taken Blood Pressure 166/75 11/07/2019 12:00 PM CDT Pulse 64 11/07/2019 12:00 PM CDT Temperature 36.6 C (97.9 F) 11/07/2019 12:00 PM CDT Respiratory Rate 18 11/07/2019 12:00 PM CDT Oxygen Saturation 97% 11/07/2019 12:00 PM CDT Inhaled Oxygen Concentration - - Weight 113.9 kg (251 lb) 11/07/2019 3:00 AM CDT Height 167.6 cm (5' 6") 11/05/2019 8:55 PM CDT Body Mass Index 40.51 11/07/2019 3:00 AM CDT Plan of Treatment Not on file Implants Implanted Type Area Tax Collection Coordinator Device Shelf Model / Identifier Expiration Date Ser ial / Lot Stent Bili Duodenal [id number] - [id number] IMPLANTS [employer] 3432 / Implanted: Qty: 1 on 11/06/2019 by Royal Contreras MD / Procedures Procedure Name Priority Date/Time Associated Comments Diagnosis POCT-GLUCOSE METER Routine 11/07/2019 11:44 Resul ts for this AM CDT procedure are i n the results section. POCT-GLUCOSE METER Routine 11/07/2019 7:34 Resul ts for this AM CDT procedure are i n the results section. CBC W/PLT COUNT & Routine 11/07/2019 4:48 Result s for this AUTO DIFFERENTIAL AM CDT procedure are in the results section. HEPATIC FUNCTION Routine 11/07/2019 4:48 Results for this PANEL AM CDT procedure are i n the results section. MAGNESIUM Routine 11/07/2019 4:48 Results for this AM CDT procedure are i n the results section. BASIC METABOLIC PANEL Routine 11/07/2019 4:48 Re sults for this (7) AM CDT procedure are i n the results section. CBC W/PLT COUNT & Routine 11/07/2019 4:48 Result s for this AUTO DIFFERENTIAL AM CDT procedure are in the results section. POCT-GLUCOSE METER Routine 11/06/2019 8:38 Resul ts for this PM CDT procedure are i n the results section. POCT-GLUCOSE METER Routine 11/06/2019 4:21 Resul ts for this PM CDT procedure are i n the results section. FL ERCP Routine 11/06/2019 11:56 Results for this AM CDT procedure are i n the results section. REPORT OF PROCEDURE - 11/06/2019 11:55 ENDOSCOPY URL AM CDT ERCP,PAPILLOTOMY 11/06/2019 11:00 Bile duct leak AM CDT Abnormal findings on imaging test Special Needs ercp w/ anes and fluoro PROCEDURE W/ C-ARM 11/06/2019 11:00 AM CDT Bile duct leak Abnormal findings on imaging test Special Needs ercp w/ anes and fluoro ERCP 11/06/2019 11:00 AM CDT Bile cleo t leak Abnormal findings on imaging test Special Needs ercp w/ anes and fluoro POCT-GLUCOSE METER Routine 11/06/2019 7:29 AM CDT Results for this procedure are i n the results section . CBC W/PLT COUNT & AUTO Routine 11/06/2019 5:49 AM CDT Results for this DIFFERENTIAL procedure are i n the results section . HEPATIC FUNCTION PANEL Routine 11/06/2019 5:49 AM CDT Results for this procedure are i n the results section . MAGNESIUM Routine 11/06/2019 5:49 AM CDT Resu lts for this procedure are i n the results section . BASIC METABOLIC PANEL (7) Routine 11/06/2019 5:49 AM CDT Results for this procedure are i n the results section . CBC W/PLT COUNT & AUTO Routine 11/06/2019 5:49 AM CDT Results for this DIFFERENTIAL procedure are i n the results section . POCT-GLUCOSE METER Routine 11/05/2019 11:04 PM CDT Results for this procedure are i n the results section . ECG 12-LEAD Routine 11/05/2019 6:14 PM CDT Procedure Note - Interface, External Ris In - 11/05/2019 6:18 PM CDT Ventricular Rate 71 BPM Atrial Rate 71 BPM P-R Interval 176 ms QRS Duration 150 ms Q-T Interval 420 ms QTC Calculation(Bazett) 456 ms P Wharton 20 degrees R Wharton -49 degrees T Wharton -11 degrees Normal sinus rhythm Right bundle branch block Left anterior fascicular blo ck Bifascicular block Abnormal ECG No previous ECGs available ECG 12-LEAD Routine 11/05/2019 6:14 PM CDT Resu lts for this procedure are i n the results section . SARS-COV2/RT-PCR ([facility] & Routine 11/05/2019 5:17 PM CDT Results for this REF LABS) procedure are i n the results section . POCT-GLUCOSE METER Routine 11/05/2019 4:37 PM CDT Results for this procedure are i n the results section . CBC W/PLT COUNT & AUTO Routine 11/05/2019 2:52 PM CDT Results for this DIFFERENTIAL procedure are i n the results section . HEMOGLOBIN A1C Routine 11/05/2019 2:52 PM CDT Re sults for this procedure are i n the results section . PT/APTT Routine 11/05/2019 2:52 PM CDT Resu lts for this procedure are i n the results section . CBC W/PLT COUNT & AUTO Routine 11/05/2019 2:52 PM CDT Results for this DIFFERENTIAL procedure are i n the results section . BASIC METABOLIC PANEL (7) Routine 11/05/2019 2:52 PM CDT Results for this procedure are i n the results section . MAGNESIUM Routine 11/05/2019 2:52 PM CDT Resu lts for this procedure are i n the results section . HEPATIC FUNCTION PANEL Routine 11/05/2019 2:52 PM CDT Results for this procedure are i n the results section . after 11/06/2018 Results POC-Glucose meter (11/07/2019 11:44 AM CDT)Only the most recent of7 results within the time period is included. POC-Glucose Meter 109Comment: : TESTED AT 70 - 110 mg/dL [facility] [address] [place], [address]: Bilingual Teacher Aide/Corporate Librarian ID = [id number] for ELISA ROBERTS Specimen Blood Performing Organization Address City/State/Zipcode Phone Number [place] [phone] [place], [place] [phone] CENTER CBC with platelet count + automated diff (11/07/2019 4:48 AM CDT)Only the most recent of3 resultswithin the time period is included. WBC 9.9 3.5 - 10.5 K/L [facility] RBC 3.07 (L) 4.63 - 6.08 M/L [facility] Hemoglobin 9.1 (L) 13.7 - 17.5 GM/DL [facility] Hematocrit 28.0 (L) 40.1 - 51.0 % [facility] MCV 91.2 79.0 - 92.2 fL [facility] MCH 29.6 25.7 - 32.2 pg [facility] MCHC 32.5 32.3 - 36.5 GM/DL [facility] RDW 14.0 11.6 - 14.4 % [facility] Platelets 137 (L) 150 - 450 K/CU MM [facility] MPV 10.2 9.4 - 12.4 fL [facility] nRBC 0 0 - 0 /100 [address] [facility] % Neutros 77 % [facility] % Lymphs 14 % [facility] % Monos 6 % [facility] % Eos 2 % [facility] % Baso 0 % [facility] # Neutros 7.59 (H) 1.78 - 5.38 K/L [facility] # Lymphs 1.39 1.32 - 3.57 K/L [facility] # Monos 0.56 0.30 - 0.82 K/L [facility] # Eos 0.23 0.04 - 0.54 K/L [facility] # Baso 0.04 0.01 - 0.08 K/L [facility] Immature Granulocytes-Relative 0 0 - 1 % C [facility] Specimen Blood Performing Organization Address City/[facility]/Zipcode Phone Number [facility] [address] [place] [phone] CENTER Magnesium (11/07/2019 4:48 AM CDT)Only the most recent of3 resultswithin the time period is included. Magnesium 1.7 1.6 - 2.6 mg/dL [facility] Specimen Blood Narrative Performed At Bilingual Teacher Aide ID - [facility] Performing Organization Address City/[facility]/Zipcode Phone Number [address] [address] CENTER Hepatic function panel (11/07/2019 4:48 AM CDT)Only the most recent of3 results within the time period is included. Protein, Total 5.5 (L) 6.0 - 8.3 gm/dL [facility] Albumin 2.6 (L) 3.5 - 5.0 g/dL [facility] Total Bilirubin 0.9 0.2 - 1.2 mg/dL [facility] Bilirubin, Direct 0.4 0.1 - 0.5 mg/dL [facility] Alkaline Phosphatase 57 40 - 150 U/L [facility] AST 10 5 - 34 U/L [facility] ALT 10 6 - 55 U/L [facility] Specimen Blood Narrative Performed At Bilingual Teacher Aide ID - [facility] Performing Organization Address City/[facility]/Zipcode Phone Number [facility] [address] [place], [place] [phone] [place] Basic Metabolic Panel (11/07/2019 4:48 AM CDT)Only the most recent of3 results within the time period is included. Sodium 141 136 - 145 meq/L [facility] Potassium 3.7 3.5 - 5.1 meq/L [facility] Chloride 116 (H) 98 - 107 meq/L [facility] CO2 20 (L) 22 - 29 meq/L [facility] BUN 21 7 - 21 mg/dL [facility] Creatinine 1.59 (H) 0.57 - 1.25 mg/dL [facility] Glucose 114 (H) 70 - 105 mg/dL [facility] Calcium 7.6 (L) 8.4 - 10.2 mg/dL [facility] EGFR 44Comment: ESTIMATED GFR IS mL/min/1.73 sq m [facility] NOT ACCURATE CREATININE [facility] CLEARANCE IN PREDICTING GLOMERULAR FILTRATION RATE. ESTIMATED GFR IS NOT APPLICABLE FOR DIALYSIS PATIENTS. Specimen Blood Narrative Performed At Bilingual Teacher Aide ID - [facility] Performing Organization Address City/[facility]/Zipcode Phone Number [facility] [address] [place] [address] [place] ERCP (11/06/2019 11:56 AM CDT) Specimen Narrative Performed At FINAL REPORT GE RIS A fluoroscopic unit was utilized for a p rocedure performed in the operating room. No interpretation was re quested. Please refer to the operative report regarding findings. Ple ase refer to PACS for patient radiation dose information. Signed: Kathrine Espinal MD Report Verified Date/Time:11/06/2019 13:07:58 Reading Location: [facility] Procedure Note Interface, External Ris In - 11/06/2019 1:10 PM CDT FINAL REPORT A fluoroscopic unit was utilized for a p rocedure performed in the operating room. No interpretation was re quested. Please refer to the operative report regarding findings. Ple ase refer to PACS for patient radiation dose information. Signed: Kathrine Espinal MD Report Verified Date/Time: 11/06/2019 1 3:07:58 Reading Location: [facility] Performing Organization Address [facility] Phone Number [employer] RIS REPORT OF PROCEDURE - ENDOSCOPY URL (11/06/2019 11:55 AM CDT) Narrative Performed At This result has an attachment that is no t available. ECG 12 lead (11/05/2019 6:14 PM CDT) Specimen Narrative Performed At Ventricular Rate 71 BPM GE MUSE Atrial Rate 71 BPM P-R Interval 176 ms QRS Duration 150 ms Q-T Interval 420 ms QTC Calculation(Bazett) 456 ms P Wharton 20 degrees R Wharton -49 degrees T Wharton -11 degrees Normal sinus rhythm Right bundle branch block Left anterior fascicular block Bifascicular block Abnormal ECG No previous ECGs available Confirmed by MD MONGE YOCHAI ([id number]) on 11/06/2019 8 :20:18 AM Procedure Note Interface, External Ris In - 11/06/2019 8:20 AM CDT Ventricular Rate 71 BPM Atrial Rate 71 BPM P-R Interval 176 ms QRS Duration 150 ms Q-T Interval 420 ms QTC Calculation(Bazett) 456 ms P Wharton 20 degrees R Wharton -49 degrees T Wharton -11 degrees Normal sinus rhythm Right bundle branch block Left anterior fascicular block Bifascicular block Abnormal ECG No previous ECGs available Confirmed by MD MONGE YOCHAI ([id number]) on 11/06/2019 8:20:18 AM Performing Organization Address City/[facility] Phone Number [employer] SARS-CoV2/RT-PCR (Asymptomatic ONLY) (11/05/2019 5:17 PM CDT) SARS-COV2/RT-PCR Not Detected Not Detected, Negative [facility] SARS-COV-2 PERFORMING LAB [facility] Specimen Other Narrative Performed At Negative results do not preclude SARS-CoV-2 [facility] infection and should not be used as the sole basis for patient management decisions. Negative results must be combined with clinical observations, patient history, and epidemiological information. A false negative result may occur if a specimen is improperly collected, transported or handled. The limit of detection for this assay is 250 copies/mL. This SARS CoV-2 test is a rapid, real-time RT-PCR test intended for the qualitative detection of nucleic acid from SARS-CoV-2 in a nasopharyngeal swab specimen collected from individuals suspected of COVID-19 by their healthcare provider. This test has not been Food and Drug Administration (FDA) cleared or approved and has been authorized by FDA under an Emergency Use Authorization (EUA). This EUA will be effective until the declaration that circumstances exist justifying the authorization of the emergency use of in vitro diagnostic tests for detection and/or diagnosis of COVID-19 is terminated under Section 564(b)(2) of the Act or the EUA is revoked under Section 564(g) of the Act. Fact Sheet for Healthcare Providers: https://www.[employer]/Documents/Xpert%20Xpre ss%20SARS%20CoV-2/Fact%20Sheets/3023802%20SAR S-COV-2%20HEALTHCARE%20PROVIDERS%20FACT%20SHEE T.pdf Fact Sheet for Healthcare Patients: https://www.[employer]/Documents/Xpert%20Xpre ss%20SARS%20CoV-2/Fact%20Sheets/3023801%20SAR S-COV-2%20PATIENT%20FACT%20SHEET.pdf Performing Laboratory: [address] [place] [address] Performing Organization Address City/State/Zipcode Phone Number [address] [address] [phone] CENTER PT/aPTT (11/05/2019 2:52 PM CDT) Protime 15.0 (H) 11.9 - 14.2 seconds [facility] INR 1.2 <=5.9 [facility] PTT 24.4 22.5 - 36.0 seconds [facility] Specimen Blood Narrative Performed At Effective 10/31/2018: PT Reference Range [facility] Change New: 11.9-14.2Previous: 11.7-14.7 RECOMMENDED COUMADIN/WARFARIN INR THERAPY RANGES STANDARD DOSE: 2.0-3.0Includes: PROPHYLAXIS for venous thrombosis, systemic embolization; TREATMENT for venous thrombosis and/or pulmonary embolus. HIGH RISK: Target INR is 2.5-3.5 for patients wiht mechanical heart valves. Performing Organization Address City/State/Zipcode Phone Number [address] [address] [place] Hemoglobin A1c (11/05/2019 2:52 PM CDT) Hemoglobin A1C 8.3 (H) 4.3 - 6.1 % [facility] Specimen Blood Performing Organization Address City/State/Zipcode Phone Number [address] [address] CENTER after 11/06/2018 Insurance Payer Benefit Plan / Subscriber ID Type Phone Address Group BLUE CROSS/BLUE BCBS OS xxxxxxxxxxxx PPO [phone] [address] SHIELD [place]/PP[place] [address]
--- OUTSIDE RECORDS SUMMARY | 2019-11-07 19:11 | XMS REPORT | Continuity of Care Document ---
:1955 Author Organization [facility] t Address [address] [place] [address] Care Team Providers Name Role Phone Pan Torres MD Attending Clinician Joshua BRIGGS, Yamilet Shen Attending Clinician [phone] Diane BRIGGS Attending Clinician MILKA Attending Clinician Unavailable GIVEJAMES Admitting Clinician Unavailable Payers Payer Name Policy Type Policy Number Effective Date Expiration Date S gold BLUE CROSS/BLUE xxxxxxxxxxxx [facility] SHIELDBC[facility] OS - Medical POS/PPO/EPOxxxxx [place] [id number], [place] [address] Problems Condition Condition Condition Status Onset Resolution Last Treating Co mments Source Name Details Category Date Date Treatment Clinician Date Acute Acute Disease Active [facility] kidney kidney 6-04 [facility] - injury injury 00:00: Medical 00 [place] Essential Essential Disease Active [facility] hypertensi hypertensi 6-04 Ananya kes - on on 00:00: Medical 00 [place] Non-insuli Non-insuli Disease Active [facility] n n 6-04 [facility] - dependent dependent 00:00: [facility] glenda type 2 type 2 00 Center diabetes diabetes mellitus mellitus Bile leak, Bile leak, Disease Active [facility] postoperat postoperat 6-03 Ananya kes - deep deep 00:00: Medical 00 Center BMI BMI Problem Active [facility] 40.0-44.9, 40.0-44.9, Ananya kes - adult adult [facility] Nocturia Nocturia Problem Active [facility] Type 2 Type [address] [address] diabetes diabetes [facility] - mellitus mellitus Memori a with with l hyperglyce hyperglyce Ou tpati annita annita ent Clinics HTN, goal HTN, goal Problem Active [facility] below below [facility] - 130/80 130/80 [facility] l [facility] Clinics Type 2 Type [address] [facility] diabetes diabetes [facility] - mellitus mellitus Memori a with with l diabetic diabetic Outpat i nephropath nephropath en t y y Clinics Mixed Mixed Problem Active [facility] hyperlipid hyperlipid Ananya kes - emia emia [facility] Proteinuri Proteinuri Problem Active [facility] a, a, [facility]ukes - unspecifie unspecifie Me moria d type d type l [facility] Allergies, Adverse Reactions, Alerts This patient has no known allergies or adverse reactions. Social History Social Habit Start Date Stop Date Quantity Comments Source Sex Assigned At [facility] Medications Ordered Filled Start Stop Current Ordering Indication Dosage Frequency Signature Comments Components Source Medication Medication Date Date Medication? Clinician (SIG) Name Name metFORMIN 2019-0 2020- No 500mg Take [address] (GLUCOPHAGE 11-06- mg by Lukes - ) 500 MG 14:33: 00:00 mouth 2 Medic al tablet 00 :00 (two) Center times daily with breakfast and dinner. lisinopriL 0 2020- No 20mg QD Take [address] (PRINIVIL,Z 11-06 by mouth Xiomy es - ESTRIL) 20 14:33: 00:00 daily. Medi glenda MG tablet 00 :00 Center aspirin 81 2019-0 2020- No 81mg QD Take [address] MG EC 11-06 by mouth [facility] - tablet 14:33: 00:00 daily. Medical 00 :00 [place] sodium 2020-0 Yes 125 ml/hr. [facility] chloride - [facility]ukes - 0.9% (NS) 00:00: Medical infusion 00 [place] piperacilli 2019-0 Yes 3.375g Inject [facility] n-tazobacta 6-04 3.375 g [facility]ukes - m (ZOSYN) 00:00: intravenou Me dical MBP 3.375 g [address] in 100 mL 6 (six) NS hours. ondansetron Yes 4mg Inject [address] (ZOFRAN) 4 6-04 mLs (4 mg Luke s - mg/2 mL 00:00: total) Medical injection 00 intravenou Cent er sly every 6 (six) hours as needed. naloxone Yes .1mg Inject [facility] (NARCAN) 6-04 0.25 mLs [facility]ukes - 0.4 mg/mL 00:00: (0.1 mg Medic al injection 00 total) Center intravenou sly as needed. morphine 2 Yes 2mg Inject [address] mg/mL 6-04 mL (2 mg [facility]ukes - injection 00:00: total) Medica l 00 intravenou Center sly every 4 (four) hours as needed. Max Daily Amount: 12 mg hydrALAZINE Yes 10mg Inject 0.[address] (APRESOLINE 6-04 mLs (10 mg Ananya kes - ) 20 mg/mL 00:00: total) Medic al injection 00 intravenou Cent er sly every 6 (six) hours as needed (SBP > 160). glucagon, Yes 1mg Inject [address] human 6-04 mL (1 mg Lukes - recombinant 00:00: total) Medi glenda , 1 mg/mL 00 intramuscu Cent er SolR larly as injection needed (blood sugar less than 70, patient unable to take PO, AND unable to give D50W due to lack of IV access). dextrose 50 2019- Yes 12.5g Inject [address] % in water 6-04 mLs (12.5 Luke s - (DEXTROSE 00:00: g total) Medi glenda 50%, D50W,) 00 intravenou Ce nter Syrg sly as injection needed (blood sugar less than 70 and patient unable to take PO juice or soda). metoprolol 2020- Yes 25mg Q.5D Take [address] tartrate 6-04 06-04 tablet (25 Luke s - (LOPRESSOR) 00:00: 23:59 mg total) Medical 25 MG 00 :00 by mouth 2 Center tablet (two) times daily. insulin 2020- Yes 0U Inject 0-[address] lispro 6-04 06-04 Units Lukes - (HUMALOG) 00:00: 23:59 subcutaneo M edical 100 unit/mL 00 :00 usly every Ce nter injection night as needed (High blood sugar). insulin 2020- Yes 0U Inject [facility] lispro 6- 06-04 0-16 Units Lukes - (HUMALOG) 00:00: 23:59 subcutaneo M edical 100 unit/mL 00 :00 usly as Cente r injection needed (High blood sugar). acetaminoph 2020- Yes 650mg Take [address] en 11-06 05-30 tablets Lukes - (TYLENOL) 00:00: 23:59 (650 mg Medi glenda 325 MG 00 :00 total) by Center tablet mouth every 4 (four) hours as needed for up to 360 days. bisacodyL 2019- Yes 10mg Take 2 [facility] (DULCOLAX) 11-06 07-04 tablets [facility]ukes - 5 mg EC 00:00: 23:59 (10 mg Medical tablet 00 :00 total) by Center mouth daily as needed for Constipati on for up to 30 days. HYDROcodone 2019- Yes 1{tbl} Take [address] -acetaminop 11-06-14 tablet by Ananya murphy (NORCO 00:00: 23:59 mouth Medic al 7.5-325) 00 :00 every 4 Center 7.5-325 mg (four) per tablet hours as needed for up to 10 days. Max Daily Amount: 6 tablets bisacodyL 2019- Yes 10mg Place [address] [facility] (DULCOLAX) 11-06-14 suppositor Ananya prado - 10 mg 00:00: 23:59 y (10 mg Medical suppository 00 :00 total) Center rectally daily as needed for up to 10 days. multivitami Yes 1{capsu QD Take [address] n capsule 02 le} capsule by Hayes muniz - 13:27: mouth Medical 48 daily. Center Lisinopril- Lisinopril- Yes Hayder [address] Hydrochloro Hydrochloro 7-16 [place] [facility] - thiazide thiazide 00:00: Memor ia 00 l [facility] ent Clinics GlipiZIDE GlipiZIDE 2017-0 Yes Hayder [address] 6-06 [place] [facility] - 00:00: Memoria 00 l [facility] ent [facility] Jardiance Jardiance 2018-0 2018- No Hayder [address] 5-18 07-16 [place] [facility] - 00:00: 00:00 Memoria 00 :00 [facility] Lisinopril- Lisinopril- Yes Hayder [address] Hydrochloro Hydrochloro Guardado [facility]ukes - thiazide thiazide [facility] Simvastatin Simvastatin Yes Hayder [address] Guardado in the Lukes - evening [facility] Metformin Metformin Yes Hayder [address] HCl HCl Guardado with a Lukes - meal [facility] Vital Signs Vital Name Observation Time Observation Value Comments Source Systolic blood 2019-11-07 12:00:00 166 mm[Hg] [facility] Diastolic blood 2019-11-07 12:00:00 75 mm[Hg] [facility] Heart rate 2019-11-07 12:00:00 64 /min [facility] Body temperature 2019-11-07 12:00:00 36.61 Rachel [facility] Respiratory rate 2019-11-07 12:00:00 18 /min [facility] Oxygen saturation in 2019-11-07 12:00:00 97 /min [facility] - Arterial blood by Medical Ce nter Pulse oximetry Body weight Measured 2019-11-07 03:00:00 113.853 kg [facility] BMI 2019-11-07 03:00:00 40.51 kg/m2 [facility] Body height 2019-11-05 20:55:00 167.6 cm [facility] Procedures Procedure Date / Time Performed Performing Clinician Jimena alejo POCT-GLUCOSE METER 2019-11-07 11:44:[address] [facility] POCT-GLUCOSE METER 2019-11-07 07:34:[address] [facility] BASIC METABOLIC PANEL 2019-11-07 04:48:00 Mikla [facility] () [facility] MAGNESIUM 2019-11-07 04:48:00 Givejames [facility] HEPATIC FUNCTION PANEL 2019-11-07 04:48:00 Givejames [facility] CBC W/PLT COUNT & AUTO 2019-11-07 04:48:00 Milka [facility] POCT-GLUCOSE METER 2019-11-06 20:38:[address] [facility] POCT-GLUCOSE METER 2019-11-06 16:21:[address] [facility] [place] ERCP 2019-11-06 11:56:00 Diane [facility] REPORT OF PROCEDURE - 2019-11-06 11:55:51 Diane [facility] ENDOSCOPY [facility] ERCP 2019-11-06 11:00:00 Diane [facility] PROCEDURE W/ C-ARM 2019-11-06 11:00:00 Diane [facility] ERCP,PAPILLOTOMY 2019-11-06 11:00:00 Diane [facility] POCT-GLUCOSE METER 2019-11-06 07:29:[address] [facility] BASIC METABOLIC PANEL 2019-11-06 05:49:00 Milka [facility] () [facility] MAGNESIUM 2019-11-06 05:49:00 Milka [facility] HEPATIC FUNCTION PANEL 2019-11-06 05:49:00 Milka [facility] CBC W/PLT COUNT & AUTO 2019-11-06 05:49:00 [facility] 2019-11-05 23:04:00 [facility] 12-LEAD 2019-11-05 18:14:38 Unknown, Hl7 Doctor [facility] SARS-COV2/RT-PCR ([facility] & 2019-11-05 17:17:00 [facility] POCT-GLUCOSE METER 2019-11-05 16:37:[address] [facility] HEPATIC FUNCTION PANEL 2019-11-05 14:52:00 Pna Torres [facility] MAGNESIUM 2019-11-05 14:52:00 Pan Torres [facility] BASIC METABOLIC PANEL 2019-11-05 14:52:[address] [facility] (7) [facility] PT/APTT 2019-11-05 14:52:00 Pan Torres [facility] HEMOGLOBIN A1C 2019-11-05 14:52:00 Milka [facility] CBC W/PLT COUNT & AUTO 2019-11-05 14:52:00 Pan Torres [facility] Plan of Care Planned Activity Planned Date Details Comments Source Encounters Start End Encounter Admission Attending Care Care Encounter Source Date/Time Date/Time Type Type Clinicians Facility Department ID 2017-12-18 2017-12-18 [facility] [id number] [facility] 14:00:00 14:00:00 [employer] Outpati ent Clinics 2017-10-23 2017-10-23 [facility] [id number] 15[facility]32[facility]00 [facility]32[facility] 2017-10-20 2017-10-20 [facility] [id number] 10:30:00 10:30[facility]00 [facility] [employer] [facility] Outpat[facility] ent Clinics 2017-10-02 2017-10-02 [facility] [id number] 10:30:00 10:30:00 [employer] Results Test Description Test Time Test Comments Results Result Comments Source POC-Glucose meter 2019-11-07 11:55:00 Test Item Value Reference Range Interpretation Comme [facility] POC-Glucose Meter (test code = 109 mg/dL 70-110 : TESTED AT [facility] [address] [address]) [facility] 30: Circulation Worker/Techni alyssa ID = [id number] for ROSALES ROBERTS Lab Interpretation (test code = Normal 49770-7) [facility] [id number] 11:55:00 Test Item Value Reference Range Interpretation Comments POC-GLUCOSE METER 109 mg/dL 70-110 : TESTED A T [facility] [address] (BEAKER) (test code = [address]ARY [address] [place], 1538) [address]: Circulation Worker/Techni alyssa ID = [id number] for ELISA QUINN POCT-GLUCOSE [id number] 07:45:00 Test Item Value Reference Range Interpretation Comments POC-GLUCOSE METER 106 mg/dL 70-110 : TESTED A T [facility] 6720 (BEAKER) (test code = MARY Taylor [facility], 1538) [address]: Circulation Worker/Techni alyssa ID = [id number] for ELISA QUINN Basic Metabolic [id number] 05:46:00 Test Item Value Reference Range Interpretation Comments Sodium (test code = 141 meq/L 351-072 9931-2) Potassium (test code = 3.7 meq/L 3.5-5.1 2823-3) Chloride (test code = 116 meq/L 98-107 H 2075-0) CO2 (test code = 20 meq/L 22-29 L 2028-9) BUN (test code = 21 mg/dL 7-21 3094-0) Creatinine (test code 1.59 mg/dL 0.57-1.25 H = 2160-0) Glucose (test code = 114 mg/dL 70-105 H 2345-7) Calcium (test code = 7.6 mg/dL 8.4-10.2 L 94075-6) EGFR (test code = 44 mL/min/1.73 [place] [address]-9) NOT ACCURATE CREATININE CLEARANCE IN PREDICTING GLOMERULAR FILTRATION RATE . ESTIMATED GFR I S NOT APPLICABLE FOR DIALYSIS PATIENTS. DARREN (test code = DARREN) Circulation Worker ID - [place] Lab Interpretation Abnormal (test code = 81355-1) [facility]OL[facility] [id number] 05:46:00 Test Item Value Reference Range Interpretation Comments SODIUM (BEAKER) 141 meq/L 136-145 (test code = 381) POTASSIUM (BEAKER) 3.7 meq/L 3.5-5.1 (test code = 379) CHLORIDE (BEAKER) 116 meq/L 98-107 H (test code = 382) CO2 (BEAKER) (test 20 meq/L 22-29 L code = 355) BLOOD UREA NITROGEN 21 mg/dL 7-21 (BEAKER) (test code = 354) CREATININE (BEAKER) 1.59 mg/dL 0.57-1.25 H (test code = 358) GLUCOSE RANDOM 114 mg/dL 70-105 H (BEAKER) (test code = 652) CALCIUM (BEAKER) 7.6 mg/dL 8.4-10.2 L (test code = 697) EGFR (BEAKER) (test 44 mL/min/1.73 ESTIMA MIKEY GFR IS code = 1092) sq m NOT ACCURATE CREATININE CLEARANCE IN PREDICTING GLOMERULAR FILTRATION RATE . ESTIMATED GFR I S NOT APPLICABLE FOR DIALYSIS PATIEN TS. Circulation Worker ID - LAHepatic function [id number] 05:45:00 Test Item Value Reference Range Interpretation Comments Protein, Total (test code = 5.5 6.0- 8.3 gm/dL L 2885-2) Albumin (test code = 2.6 g/dL 3.5-5 L 76684-3) Total Bilirubin (test code = 0.9 mg/dL 0.2-1.2 1974-2) Bilirubin, Direct (test code 0.4 mg/dL 0.1-0.5 = 1968-7) Alkaline Phosphatase (test 57 U/L 40-150 code = 6768-6) AST (test code = 1920-8) 10 U/L 5-34 ALT (test code = 1742-6) 10 U/L 6-55 DARREN (test code = DARREN) Circulation Worker ID - [place] Lab Interpretation (test Abnormal code = 79017-7) [facility] Hospital[facility]esium2020-06-04 05:45:00 Test Item Value Reference Range Interpretation Comments Magnesium (test code = 1.7 mg/dL 1.6-2.6 54741-9) DARREN (test code = DARREN) Circulation Worker ID - [place] Lab Interpretation (test Normal code = 25012-1) [facility] Hospital[facility]NES[facility]UM2020-06-04 05:45:00 Test Item Value Reference Range Interpretation Comments MAGNESIUM (BEAKER) (test code = 1.7 mg/dL 1.6-2.6 627) Circulation Worker ID - LAHEPATIC FUNCTION [id number] 05:45:00 Test Item Value Reference Range Interpretation Comments TOTAL PROTEIN (BEAKER) (test code = 5.5 gm/dL 6.0-8.3 L 770) ALBUMIN (BEAKER) (test code = 1145) 2.6 g/dL 3.5-5.0 L BILIRUBIN TOTAL (BEAKER) (test code 0.9 mg/dL 0.2-1.2 = 377) BILIRUBIN DIRECT (BEAKER) (test 0.4 mg/dL 0.1-0.5 code = 706) ALKALINE PHOSPHATASE (BEAKER) (test 57 U/L 40-150 code = 346) AST (SGOT) (BEAKER) (test code = 10 U/L 5-34 353) ALT (SGPT) (BEAKER) (test code = 10 U/L 6-55 347) Circulation Worker ID - LACBC with platelet count + automated [id number] 05:09:00 Test Item Value Reference Range Interpretation Comments WBC (test code = 6690-2) 9.9 3.5- 10.5 K/L RBC (test code = 789-8) 3.07 4.63- 6.08 M/L L MCHC (test code = 786-4) 32.5 32.3- 36.5 GM/DL L Hematocrit (test code = 4544-3) 28.0 % 40.1-51 L MCV (test code = 787-2) 91.2 fL 79-92.2 MCH (test code = 785-6) 29.6 pg 25.7-32.2 RDW (test code = 788-0) 14.0 % 11.6-14.4 Platelets (test code = 777-3) 137 150- 450 K/CU MM L MPV (test code = 79882-1) 10.2 fL 9.4-12.4 nRBC (test code = 413) 0 0- 0 /100 WBC % Neutros (test code = 429) 77 % % Lymphs (test code = 430) 14 % % Monos (test code = 431) 6 % % Eos (test code = 432) 2 % % Baso (test code = 437) 0 % # Neutros (test code = 670) 7.59 1.78- 5.38 K/L H # Lymphs (test code = 414) 1.39 1.32- 3.57 K/L # Monos (test code = 415) 0.56 0.30- 0.82 K/L # Eos (test code = 416) 0.23 0.04- 0.54 K/L # Baso (test code = 417) 0.04 0.01- 0.08 K/L Immature Granulocytes-Relative 0 % 0-1 (test code = 2801) Lab Interpretation (test code = Abnormal 83505-9) [facility] W/PLT COUNT & AUTO [id number] 05:09:00 Test Item Value Reference Range Interpretation Comments WHITE BLOOD CELL COUNT (BEAKER) 9.9 K/ L 3.5-10.5 (test code = 775) RED BLOOD CELL COUNT (BEAKER) 3.07 M/ L 4.63-6.08 L (test code = 761) HEMOGLOBIN (BEAKER) (test code = 9.1 GM/DL 13.7-17.5 L 410) HEMATOCRIT (BEAKER) (test code = 28.0 % 40.1-51.0 L 411) MEAN CORPUSCULAR VOLUME (BEAKER) 91.2 fL 79.0-92.2 (test code = 753) MEAN CORPUSCULAR HEMOGLOBIN 29.6 pg 25.7-32.2 (BEAKER) (test code = 751) MEAN CORPUSCULAR HEMOGLOBIN CONC 32.5 GM/DL 32.3-36.5 (BEAKER) (test code = 752) RED CELL DISTRIBUTION WIDTH 14.0 % 11.6-14.4 (BEAKER) (test code = 412) PLATELET COUNT (BEAKER) (test 137 K/CU MM 150-450 L code = 756) MEAN PLATELET VOLUME (BEAKER) 10.2 fL 9.4-12.4 (test code = 754) NUCLEATED RED BLOOD CELLS 0 /100 WBC 0-0 (BEAKER) (test code = 413) NEUTROPHILS RELATIVE PERCENT 77 % (BEAKER) (test code = 429) LYMPHOCYTES RELATIVE PERCENT 14 % (BEAKER) (test code = 430) MONOCYTES RELATIVE PERCENT 6 % (BEAKER) (test code = 431) EOSINOPHILS RELATIVE PERCENT 2 % (BEAKER) (test code = 432) BASOPHILS RELATIVE PERCENT 0 % (BEAKER) (test code = 437) NEUTROPHILS ABSOLUTE COUNT 7.59 K/ L 1.78-5.38 H (BEAKER) (test code = 670) LYMPHOCYTES ABSOLUTE COUNT 1.39 K/ L 1.32-3.57 (BEAKER) (test code = 414) MONOCYTES ABSOLUTE COUNT (BEAKER) 0.56 K/ L 0.30-0.82 (test code = 415) EOSINOPHILS ABSOLUTE COUNT 0.23 K/ L 0.04-0.54 (BEAKER) (test code = 416) BASOPHILS ABSOLUTE COUNT (BEAKER) 0.04 K/ L 0.01-0.08 (test code = 417) IMMATURE GRANULOCYTES-RELATIVE 0 % 0-1 PERCENT (BEAKER) (test code = 2801) POCT-GLUCOSE [id number] 20:52:00 Test Item Value Reference Range Interpretation Comments POC-GLUCOSE METER 113 mg/dL 70-110 H : TESTED A T [facility] 6720 (BEAKER) (test code = [facility], 1538) [address]: Circulation Worker/Techni alyssa ID = [id number] for MARIE OLIVER POCT-GLUCOSE [id number] 16:32:00 Test Item Value Reference Range Interpretation Comments POC-GLUCOSE METER 124 mg/dL 70-110 H : TESTED A T [facility] 6720 (BEAKER) (test code = [facility], 1538) [address]: Circulation Worker/Techni alyssa ID = [id number] for KEIRY ELISA BALL [place], [id number] 13:07:00Reason for exam:->abnormal imagingFINAL REPORT A fluoroscopic unit was utilized for a procedure performed in the operating room. No interpretation was requested. Please refer to the operative report regarding findings. Please refer to PACS for patient radiation dose information. Signed: Kathrine Bullard Verified Date/Time: 11/06/2019 13:07:58 [facility] [id number] 13:07:00Interface, External Ris In - 11/06/2019 1:10 PM CDTFINAL REPORT A fluoroscopic unit was utilized for a procedure performed in the operating room. No interpretation was requested. Please refer to the operative report regarding findings. Please refer to PACS for patient radiationdose information. Signed: Kathrine Bullard Verified Date/Time: 11/06/2019 13:07:58 [facility] [id number] 08:20:22Interface, External Ris In - 11/06/2019 8:20 AM CDTVentricular Rate 71 BPMAtrial Rate 71 BPMP-R Inte rval 176 msQRS Duration 150 msQ-T Interval 420 msQTC Calculation(Bazett) 456 msP Oden 20 degreesR Oden -49 degreesT Oden -11 degreesNormal sinus rhythmRight bundle branch blockLeft anterior fascicular block Bifascicular block Abnormal ECGNo previous ECGs availableConfirmed by MD SALEEM, MERLENE ([id number]) on 11/06/2019 8:20:18 [facility] [id number] 07:41:00 Test Item Value Reference Range Interpretation Comments POC-GLUCOSE METER 132 mg/dL 70-110 H : TESTED A T [facility] 6720 (BEAKER) (test code = [place], 1538) [address]: Circulation Worker/Techni alyssa ID = [id number] for ELISA QUINN [id number] 06:34:00 Test Item Value Reference Range Interpretation Comments MAGNESIUM (BEAKER) (test code = 1.6 mg/dL 1.6-2.6 627) Circulation Worker ID - SOWMYA MBASIC METABOLIC [id number] 06:34:00 Test Item Value Reference Range Interpretation Comments SODIUM (BEAKER) 139 meq/L 136-145 (test code = 381) POTASSIUM (BEAKER) 4.0 meq/L 3.5-5.1 (test code = 379) CHLORIDE (BEAKER) 112 meq/L 98-107 H (test code = 382) CO2 (BEAKER) (test 22 meq/L 22-29 code = 355) BLOOD UREA NITROGEN 23 mg/dL 7-21 H (BEAKER) (test code = 354) CREATININE (BEAKER) 1.66 mg/dL 0.57-1.25 H (test code = 358) GLUCOSE RANDOM 135 mg/dL 70-105 H (BEAKER) (test code = 652) CALCIUM (BEAKER) 8.0 mg/dL 8.4-10.2 L (test code = 697) EGFR (BEAKER) (test 42 mL/min/1.73 ESTIMA MIKEY GFR IS code = 1092) sq m NOT ACCURATE CREATININE CLEARANCE IN PREDICTING GLOMERULAR FILTRATION RATE . ESTIMATED GFR I S NOT APPLICABLE FOR DIALYSIS PATIEN TS. Circulation Worker ID - SOWMYA EPATIC FUNCTION [id number] 06:34:00 Test Item Value Reference Range Interpretation Comments TOTAL PROTEIN (BEAKER) (test code = 6.3 gm/dL 6.0-8.3 770) ALBUMIN (BEAKER) (test code = 1145) 3.0 g/dL 3.5-5.0 L BILIRUBIN TOTAL (BEAKER) (test code 0.9 mg/dL 0.2-1.2 = 377) BILIRUBIN DIRECT (BEAKER) (test 0.4 mg/dL 0.1-0.5 code = 706) ALKALINE PHOSPHATASE (BEAKER) (test 68 U/L 40-150 code = 346) AST (SGOT) (BEAKER) (test code = 12 U/L 5-34 353) ALT (SGPT) (BEAKER) (test code = 14 U/L 6-55 347) Circulation Worker ID - SOWMYA [facility] W/PLT COUNT & AUTO [id number] 06:29:00 Test Item Value Reference Range Interpretation Comments WHITE BLOOD CELL COUNT (BEAKER) 17.2 K/ L 3.5-10.5 H (test code = 775) RED BLOOD CELL COUNT (BEAKER) 3.39 M/ L 4.63-6.08 L (test code = 761) HEMOGLOBIN (BEAKER) (test code = 10.4 GM/DL 13.7-17.5 L 410) HEMATOCRIT (BEAKER) (test code = 31.0 % 40.1-51.0 L 411) MEAN CORPUSCULAR VOLUME (BEAKER) 91.4 fL 79.0-92.2 (test code = 753) MEAN CORPUSCULAR HEMOGLOBIN 30.7 pg 25.7-32.2 (BEAKER) (test code = 751) MEAN CORPUSCULAR HEMOGLOBIN CONC 33.5 GM/DL 32.3-36.5 (BEAKER) (test code = 752) RED CELL DISTRIBUTION WIDTH 14.0 % 11.6-14.4 (BEAKER) (test code = 412) PLATELET COUNT (BEAKER) (test 159 K/CU MM 150-450 code = 756) MEAN PLATELET VOLUME (BEAKER) 10.5 fL 9.4-12.4 (test code = 754) NUCLEATED RED BLOOD CELLS 0 /100 WBC 0-0 (BEAKER) (test code = 413) NEUTROPHILS RELATIVE PERCENT 83 % (BEAKER) (test code = 429) LYMPHOCYTES RELATIVE PERCENT 9 % (BEAKER) (test code = 430) MONOCYTES RELATIVE PERCENT 7 % (BEAKER) (test code = 431) EOSINOPHILS RELATIVE PERCENT 1 % (BEAKER) (test code = 432) BASOPHILS RELATIVE PERCENT 0 % (BEAKER) (test code = 437) NEUTROPHILS ABSOLUTE COUNT 14.24 K/ L 1.78-5.38 H (BEAKER) (test code = 670) LYMPHOCYTES ABSOLUTE COUNT 1.46 K/ L 1.32-3.57 (BEAKER) (test code = 414) MONOCYTES ABSOLUTE COUNT (BEAKER) 1.20 K/ L 0.30-0.82 H (test code = 415) EOSINOPHILS ABSOLUTE COUNT 0.15 K/ L 0.04-0.54 (BEAKER) (test code = 416) BASOPHILS ABSOLUTE COUNT (BEAKER) 0.05 K/ L 0.01-0.08 (test code = 417) IMMATURE GRANULOCYTES-RELATIVE 1 % 0-1 PERCENT (BEAKER) (test code = 2801) POCT-GLUCOSE [id number] 23:18:00 Test Item Value Reference Range Interpretation Comments POC-GLUCOSE METER 126 mg/dL 70-110 H : TESTED A T [facility] 6720 (BEAKER) (test code = [place], 1538) [address]: Circulation Worker/Techni alyssa ID = [id number] for BRIAN LYON Hemoglobin [id number] 20:09:00 Test Item Value Reference Range Interpretation Comments Hemoglobin A1C (test code = 4548-4) 8.3 % 4.3-6.1 H Lab Interpretation (test code = Abnormal 29534-2) [id number] 20:09:00 Test Item Value Reference Range Interpretation Comments HEMOGLOBIN A1C (BEAKER) (test code = 8.3 % 4.3-6.1 H 368) SARS-CoV2/RT-PCR (Asymptomatic ONLY)2019-11-05 19:00:00 Test Item Value Reference Range Interpretation Comments SARS-COV2/RT-PCR Not Detected Not Detected, (test code = Negative 1799514) SARS-COV-2 [facility] PERFORMING LAB (test code = 0523544) DARREN (test code = Negative results do not DARREN) preclude SARS-CoV-2 infection and should not be used as [...] of the Act. Fact Sheet for Healthcare Providers:https://www.[employer]/Documents/Xper t%20Xpress%20SARS%20CoV- 2/Fact%20Sheets/302-2122 %05JXIT-VUY-7%20HEALTHCA RE%20PROVIDERS%20FACT%20 SHEET.pdf Fact Sheet for Healthcare Patients:https://www.[employer] heid.[employer]in[employer]cond/Documents/Xpert %20Xpress%20SARS%20CoV-2 /Fact%20Sheets/302-3801% 78PCRI-AER-6%20PATIENT%2 0FACT%20SHEET.pdf Performing Laboratory:[facility] [place] [address] [facility] REF [facility]2019-11-05 19:00:00 Test Item Value Reference Range Interpretation Comments SARS-COV2/RT-PCR (test Not Detected Not Detected, Negative code = 5523854) SARS-COV-2 PERFORMING LAB [facility] (test code = 1521846) Negative results do not preclude SARS-CoV-2 infection and should not be used as the sole basis for patient management decisions. Negative results must be combined with clinical observations, patient history, and epidemiological information. A false negative result may occur if a specimen is improperly collected, transported or handled.The limit of detection for this assay is 250 copies/mL.This SARS CoV-2 test is a rapid, real-time RT-PCR test intended for the qualitative detection of nucleic acid from SARS-CoV-2 in a nasopharyngeal swab specimen collected from individuals suspected of COVID-19 by their healthcare provider.This test has not been Food and Drug [...] is revoked under Section 564(g) of the Act.Fact Sheet for Healthcare Pro viders:https://www.[employer]/Documents/Xpert%20Xpress%20SARS%20CoV-2/Fact%20Sh eets/302-3802%23FSCN-EXM-5%20HEALTHCARE%20PROVIDERS%20FACT%20SHEET.pdfFact Sheet for Healthcare Patients:https://www.[employer]/Documents/Xpert%20Xpress%20SARS%20CoV-2/Fact%20Sheets/302-3801%20SARS-COV -2%20PATIENT%20FACT%20SHEET.pdfPerforming Laboratory:[facility], [place] [address]DGMP-WKAGSMD [id number] 16:49:00 Test Item Value Reference Range Interpretation Comments POC-GLUCOSE METER 230 mg/dL 70-110 H : TESTED A T [facility] 6720 (BEAKER) (test code [facility], = 1538) [address]: Circulation Worker/Techni alyssa ID = [id number] for VANNA DIXON [id number] 15:37:00 Test Item Value Reference Range Interpretation Comments MAGNESIUM (BEAKER) (test code = 1.7 mg/dL 1.6-2.6 627) Circulation Worker ID - BSBASIC METABOLIC [id number] 15:37:00 Test Item Value Reference Range Interpretation Comments SODIUM (BEAKER) 137 meq/L 136-145 (test code = 381) POTASSIUM (BEAKER) 4.5 meq/L 3.5-5.1 (test code = 379) CHLORIDE (BEAKER) 110 meq/L 98-107 H (test code = 382) CO2 (BEAKER) (test 19 meq/L 22-29 L code = 355) BLOOD UREA NITROGEN 22 mg/dL 7-21 H (BEAKER) (test code = 354) CREATININE (BEAKER) 1.66 mg/dL 0.57-1.25 H (test code = 358) GLUCOSE RANDOM 172 mg/dL 70-105 H (BEAKER) (test code = 652) CALCIUM (BEAKER) 8.1 mg/dL 8.4-10.2 L (test code = 697) EGFR (BEAKER) (test 42 mL/min/1.73 ESTIMA MIKEY GFR IS code = 1092) sq m NOT ACCURATE CREATININE CLEARANCE IN PREDICTING GLOMERULAR FILTRATION RATE . ESTIMATED GFR I S NOT APPLICABLE FOR DIALYSIS PATIEN TS. Circulation Worker ID - BSHEPATIC FUNCTION [id number] 15:37:00 Test Item Value Reference Range Interpretation Comments TOTAL PROTEIN (BEAKER) (test code = 6.7 gm/dL 6.0-8.3 770) ALBUMIN (BEAKER) (test code = 1145) 3.2 g/dL 3.5-5.0 L BILIRUBIN TOTAL (BEAKER) (test code 0.7 mg/dL 0.2-1.2 = 377) BILIRUBIN DIRECT (BEAKER) (test 0.3 mg/dL 0.1-0.5 code = 706) ALKALINE PHOSPHATASE (BEAKER) (test 70 U/L 40-150 code = 346) AST (SGOT) (BEAKER) (test code = 16 U/L 5-34 353) ALT (SGPT) (BEAKER) (test code = 16 U/L 6-55 347) Circulation Worker ID - [id number] 15:27:00 Test Item Value Reference Range Interpretation Comments Protime (test code = 15.0 11.9- 14.2 H 5902-2) seconds INR (test code = 1.2 <=5.9 6301-6) PTT (test code = 24.4 22.5- 36.0 62259-6) seconds DARREN (test code = DARREN) Effective 10/31/2018: PT Reference Range ChangeNew: 11.9-14.2 Previous: 11.7-14.7 RECOMMENDED COUMADIN/WARFARIN INR THERAPY RANGESSTANDARD DOSE: 2.0-3.0 Includes: PROPHYLAXIS for venous thrombosis, systemic embolization; TREATMENT for venous thrombosis and/or pulmonary embolus.HIGH RISK: Target INR is 2.5-3.5 for patients wiht mechanical heart valves. Lab Interpretation Abnormal (test code = 06120-2) [facility][id number] 15:27:00 Test Item Value Reference Range Interpretation Comments PROTIME (BEAKER) (test code = 15.0 seconds 11.9-14.2 H 759) INR (BEAKER) (test code = 370) 1.2 <=5.9 PARTIAL THROMBOPLASTIN TIME 24.4 seconds 22.5-36.0 (BEAKER) (test code = 760) Effective 10/31/2018: PT Reference Range ChangeNew: 11.9-14.2 Previous: 11.7- 14.7RECOMMENDED COUMADIN/WARFARIN INR THERAPY RANGESSTANDARD DOSE: 2.0-3.0 Includes: PROPHYLAXIS for venous thrombosis, systemic embolization; TREATMENT for venous thrombosis and/or pulmonary embolus.HIGH RISK: Target INR is2.5-3.5 for patients wiht mechanical heart valves.CBC W/PLT COUNT & AUTO [id number] 15:14:00 Test Item Value Reference Range Interpretation Comments WHITE BLOOD CELL COUNT (BEAKER) 17.4 K/ L 3.5-10.5 H (test code = 775) RED BLOOD CELL COUNT (BEAKER) 3.76 M/ L 4.63-6.08 L (test code = 761) HEMOGLOBIN (BEAKER) (test code = 10.9 GM/DL 13.7-17.5 L 410) HEMATOCRIT (BEAKER) (test code = 32.9 % 40.1-51.0 L 411) MEAN CORPUSCULAR VOLUME (BEAKER) 87.5 fL 79.0-92.2 (test code = 753) MEAN CORPUSCULAR HEMOGLOBIN 29.0 pg 25.7-32.2 (BEAKER) (test code = 751) MEAN CORPUSCULAR HEMOGLOBIN CONC 33.1 GM/DL 32.3-36.5 (BEAKER) (test code = 752) RED CELL DISTRIBUTION WIDTH 13.7 % 11.6-14.4 (BEAKER) (test code = 412) PLATELET COUNT (BEAKER) (test 202 K/CU MM 150-450 code = 756) MEAN PLATELET VOLUME (BEAKER) 10.4 fL 9.4-12.4 (test code = 754) NUCLEATED RED BLOOD CELLS 0 /100 WBC 0-0 (BEAKER) (test code = 413) NEUTROPHILS RELATIVE PERCENT 87 % (BEAKER) (test code = 429) LYMPHOCYTES RELATIVE PERCENT 7 % (BEAKER) (test code = 430) MONOCYTES RELATIVE PERCENT 6 % (BEAKER) (test code = 431) EOSINOPHILS RELATIVE PERCENT 0 % (BEAKER) (test code = 432) BASOPHILS RELATIVE PERCENT 0 % (BEAKER) (test code = 437) NEUTROPHILS ABSOLUTE COUNT 15.08 K/ L 1.78-5.38 H (BEAKER) (test code = 670) LYMPHOCYTES ABSOLUTE COUNT 1.13 K/ L 1.32-3.57 L (BEAKER) (test code = 414) MONOCYTES ABSOLUTE COUNT (BEAKER) 1.10 K/ L 0.30-0.82 H (test code = 415) EOSINOPHILS ABSOLUTE COUNT 0.00 K/ L 0.04-0.54 L (BEAKER) (test code = 416) BASOPHILS ABSOLUTE COUNT (BEAKER) 0.04 K/ L 0.01-0.08 (test code = 417) IMMATURE GRANULOCYTES-RELATIVE 1 % 0-1 PERCENT (TRINIDAD) (test code = 2801)
[2019-11-07] MEDS ORDERED: ONDANSETRON 4 MG (ODT) TAB PO PRN (20:21)
[2019-11-07] MEDS ORDERED: HYDROCODONE/APAP 7.5/325 MG TAB PO PRN (20:21)
[2019-11-07 20:32] VITALS: BMI 36.8
[2019-11-07] MEDS: INSULIN -REGULAR HUMAN 50 UNIT/0.5 ML ML SQ SCH (21:00)
[2019-11-07] MEDS: HYDRALAZINE HCL 20 MG/ML VIAL IV PRN (22:25)
[2019-11-07] MEDS ORDERED: PIPERACIL/TAZO 3.375 GM VIAL IV ONE (23:56)
[2019-11-07] MEDS: PIPER/TAZO/NS 3.375gm 3.375 GM/100 ML BAG IVPB SCH (23:58)
[2019-11-07] MEDS ORDERED: NA CHLORIDE 0.9% 200 ML ONE (23:58)
--- NOTE | 2019-11-08 00:49 | HP ---
Date of Admission: 11/07/2019 Brief History Of Present Illness: Patient is a 63-year-old male known to me from previous admission several days ago on 11/04. He was seen previously in the hospital on 10/10 with cholecystitis treate d nonoperatively initially. He came to see me in clinic following thereafter and was ultimately brou ght to the operating room on 11/05/2019 approximately 2 days ago for laparoscopic cholecystectomy. Asia alejo had a gangrenous gallbladder with significant inflammatory changes and he had a subtotal cholecyste ctomy with evidence of small bile leak posteriorly after drain placed in right upper quadrant showed evidence of bile, as such he was transferred to [facility] where Dr. Fong performed an ERCP, found a very small bile leak from the cystic duct stump and ultimately placed a stent and got complete occlusion at that point, as such the patient is transferred back here for continuity of care and for continue medical management until he is deemed appropriate for discharge. The patient susan solomon feels well and has no significant complaints other than being fatigued. He states that he has m inimal abdominal soreness, but has somewhat return of appetite. No other complaints at this time. Past Medical History: Significant for diabetes, hypertension. Past Surgical History: Appendectomy and cholecystectomy 2 days ago, ERCP [address] Martínez gabriel. Social History: Denies smoking, alcohol, or recreational drug use. Allergies: NO KNOWN DRUG ALLERGIES. Medications: Currently, none. Physical Examination: Vital Signs: At time of my examination were stable. General: He is awake, alert, oriented. Psychiatric: Appropriate conversive. HEENT: Normocephalic. Sclerae icteric. Mucous membranes are moist. Oropharynx clear. Neck: Supple. No JVD. Chest: Normal expansion and excursion. Cardiovascular: Regular rhythm. Pulmonary: Clear to auscultation bilaterally. Abdomen: Soft with mild right upper quadrant appropriate tenderness to palpation. Julia are in pl pilar as are right upper quadrant MARIBELL drain in the lateral trocar exit site with only serous drainage. No evidence of bile drainage at this point. There is no leakage around the drain at this point as we ll. The remainder of the abdominal exam is essentially unremarkable. Extremities: No clubbing, cyanosis, edema. Skin: Warm and dry. Data: There was no laboratory or imaging performed on this particular admission. Assessment And Plan: This is a 63-year-old male who presents status post subtotal cholecystectomy on 11/05/2019, status post endoscopic retrograde cholangiopancreatography for small cystic duct, bile l eak with Dr. Fong, who is transferred here for continuity of care. 1.Antibiotic coverage with Zosyn 3.375. 2.We will recheck labs in a.m. 3.Start him on p.o. diet, clear liquids, advance to low-fat diet as tolerated. Pain management and medical management to continue. I have explained risks, benefits, and alternatives to above-stated p amilcar. Patient agrees proceed as indicated. VENUS/QUIANA Voice ID: [id number]
[2019-11-08] MEDS: PIPER/TAZO/NS 3.375gm 3.375 GM/100 ML BAG IVPB SCH (05:04)
[2019-11-08] MEDS: HYDRALAZINE HCL 20 MG/ML VIAL IV PRN (05:14)
[2019-11-08 06:19] LABS: Absolute Lymphocytes (CBC) 1.2 K/uL (0.7-4.9); Lymphocytes % 12.8 % (15.3-44.8); MPV 8.9 fL (7.6-11.3); RBC Red Blood Cell Count 3.45 M/uL (4.33-5.43)
[2019-11-08 06:51] LABS: Albumin 2.3 g/dL (3.4-5.0); Bilirubin Total 0.8 mg/dL (0.2-1.0); Potassium 3.4 mmol/L (3.5-5.1); Protein, Total 6.1 g/dL (6.4-8.2)
[2019-11-08] MEDS: INSULIN -REGULAR HUMAN 50 UNIT/0.5 ML ML SQ SCH (07:30)
[2019-11-08] MEDS ORDERED: POTASSIUM 25 MEQ EFFERV TAB PO ONE (08:00)
[2019-11-08 08:06] VITALS: BP 161/77; TEMP 97.5
[2019-11-08 08:22] VITALS: O2SAT 97
[2019-11-08] MEDS ORDERED: ENOXAPARIN 40 MG/0.4 ML SQ SCH (09:00)
[2019-11-08] MEDS ORDERED: PIPER/TAZO/NS 3.375gm 3.375 GM/100 ML BAG IVPB SCH (11:00)
== END 2019-11-08 10:10 | disposition home or self-care (01) ==
LOC: INTOOBSV 19:05 → 2ND 19:05
PROVIDERS: ADMIT Surgery; ATTEND Surgery
DX: Z04.89 Encounter for examination and observation for other specified reasons (principal); Z90.49 Acquired absence of other specified parts of digestive tract; E11.9 Type 2 diabetes mellitus without complications; I10 Essential (primary) hypertension
CPT/HCPCS: 36415; 80053; 82947; 83690; 85025; G0378; G0379; J0360; J1650; J2543

== ENCOUNTER 2020-03-20 07:10 | Day surgery (SDC) | payer BC, OTHER ==
[2020-03-19 15:05] LABS: Absolute Lymphocytes (CBC) 1.2 K/uL (0.7-4.9); Basophils % 0.7 % (0-1.3); Hematocrit 30.6 % (39.6-49.0); Lymphocytes % 12.6 % (15.3-44.8); MPV 8.7 fL (7.6-11.3); RBC Red Blood Cell Count 3.45 M/uL (4.33-5.43)
[2020-03-19 15:14] LABS: Potassium 4.4 mmol/L (3.5-5.1)
--- NOTE | 2020-03-19 15:40 | RAD REPORT ---
EXAM DESCRIPTION: RAD - Chest Pa And Lat (2 Views) - 03/19/2020 3:22 pm CLINICAL HISTORY: PREOP, SAME DAY SURGERY, BED 4, soft tissue mass removal COMPARISON: Portable April 2019 TECHNIQUE: Frontal and lateral views of the chest were obtained. FINDINGS: The lungs are clear. Heart size is normal and central vasculature is within normal limit s. No pleural effusion or pneumothorax seen. No acute bony finding noted. No aortic abnormality. IMPRESSION: No acute cardiopulmonary process.
--- OUTSIDE RECORDS SUMMARY | 2020-03-20 07:17 | XMS REPORT | Clinical Summary ---
:1955 Author Organization [facility] Address [address] [place] [address] Care Team Providers Name Role Phone Unavailable Primary Care Provider Unavailable Allergies No Known Allergies Medications Medication Sig Dispensed Refills Start End Status Date Date multivitamin Take 1 capsule by 0 Active capsule mouth daily. sodium chloride 125 ml/hr. 0 11/07/19 Act deep 0.9% (NS) 20 infusion piperacillin-ivon Inject 3.375 g 0 11/07/19 Active obactam (ZOSYN) intravenously 20 MBP 3.375 g in every 6 (six) 100 mL NS hours. ondansetron Inject 2 mLs (4 mg 20 mL 0 11/07/19 Active (ZOFRAN) 4 mg/2 total) 20 mL injection intravenously every 6 (six) hours as needed. naloxone Inject 0.25 mLs 1 mL 0 11/07/19 Acti ve (NARCAN) 0.4 (0.1 mg total) 20 mg/mL injection intravenously as needed. morphine 2 mg/mL Inject 1 mL (2 mg 0 11/07/19 Active injection total) 20 intravenously every 4 (four) hours as needed. Max Daily Amount: 12 mg insulin lispro Inject 0-4 Units 10 mL 0 11/07/19// Active (HUMALOG) 100 subcutaneously 20 021 unit/mL every night as injection needed (High blood sugar). insulin lispro Inject 0-16 Units 10 mL 0 11/07/19// Active (HUMALOG) 100 subcutaneously as 20 021 unit/mL needed (High blood injection sugar). hydrALAZINE Inject 0.5 mLs (10 1 mL [...] unable to take PO juice or soda). aspirin 81 MG EC Take 81 mg by 0 Active tablet mouth daily. metFORMIN Take 500 mg by 0 Disco ntinued (GLUCOPHAGE) 500 mouth 2 (two) 020 (Stop Taking MG tablet times daily with at Discharge) breakfast and dinner. lisinopriL Take 20 mg by 0 Disco ntinued (PRINIVIL,ZESTRI mouth daily. 020 (Stop Taking L) 20 MG tablet at D ischarge) aspirin 81 MG EC Take 81 mg by 0 Discontinued tablet mouth daily. 020 (Stop T aking at Dischar ge) metoprolol Take 1 tablet (25 0 11/07/19 D iscontinued tartrate mg total) by mouth 20 020 ( Error) (LOPRESSOR) 25 2 (two) times MG tablet daily. HYDROcodone-acet Take 1 tablet by 30 tablet 0 11/07/19 aminophen (NORCO mouth every 4 20 020 7.5-325) 7.5-325 (four) hours as mg per tablet needed for up to 10 days. Max Daily Amount: [address] 1 12 suppository 0 11/07/19 Expir ed (DULCOLAX) 10 mg suppository (10 mg 20 020 suppository total) rectally daily as needed for up to 10 days. bisacodyL Take 2 tablets (10 30 tablet 0 11/07/19 E xpired (DULCOLAX) 5 mg mg total) by mouth 20 020 EC tablet daily as needed for Constipation for up to 30 days. acetaminophen Take 2 tablets 30 tablet 0 11/07/19 D iscontinued (TYLENOL) 325 MG (650 mg total) by 20 020 (Error) tablet mouth every 4 (four) hours as needed for up to 360 days. Active Problems Problem Noted Date Acute kidney injury 11/07/2019 Essential hypertension 11/07/2019 Non-insulin dependent type 2 diabetes mellitus 020 Bile leak, postoperative 11/06/2019 Encounters Date Type Specialty Care Team Description 03/10/2020 Travel 02/05/2020 Hospital Encounter Pre-Admission Testing 02/05/2020 Travel 11/06/2019 Anesthesia Event Gastroenterology Jaime Thurston MD [place], Uvie Christina, MD 11/06/2019 Surgery Gastroenterology OSCAR Contreras MD 11/06/2019 Travel 11/05/2019 - Hospital Encounter General Internal Medicine Brandon Torres, 11/07/2019 11/05/2019 Orders Only General Internal Medicine after 03/20/2019 Social History Tobacco Use Types Packs/Day Years Used Date Never Smoker Smokeless Tobacco: Never Used Alcohol Use Drinks/Week oz/Week Comments No Alcohol Habits Answer Date Recorded How often do you have a drink containing alcohol? Never 02/05/2020 How many drinks containing alcohol do you have on a typical Not asked day when you are drinking? How often do you have six or more drinks on one occasion? No t asked Sex Assigned at Date Recorded Not on file COVID-19 Exposure Response Date Recorded In the last month, have you been in contact with No / Unsure 03/10/2020 3:49 PM CDT someone who was confirmed or suspected to have Coronavirus / COVID-19? Last Filed Vital Signs Vital Sign Reading Time Taken Comments Blood Pressure 166/75 11/07/2019 12:00 PM CDT Pulse 64 11/07/2019 12:00 PM CDT Temperature 36.6 C (97.9 F) 11/07/2019 12:00 PM CDT Respiratory Rate 18 11/07/2019 12:00 PM CDT Oxygen Saturation 97% 11/07/2019 12:00 PM CDT Inhaled Oxygen Concentration - - Weight 90.7 kg (200 lb) 03/10/2020 3:50 PM CDT Height 167.6 cm (5' 6") 03/10/2020 3:50 PM CDT Body Mass Index 32.28 03/10/2020 3:50 PM CDT Plan of Treatment Date Type Specialty Care Team Description 04/16/2020 Hospital Encounter Gastroenterology Royal Contreras MD [address] [place] [address] [phone] 04/16/2020 Surgery Gastroenterology Royal Contreras, ERCP,DIR ECT MD [facility]UAL[facility] [address] [place] [address] [phone] Health Maintenance Due Date Last Done Comments COLON CANCER SCREENING COLONOSCOPY 1955 DIABETIC EYE EXAM 12/31/1967 DIABETIC FOOT EXAM 12/31/1967 URINE MICROALBUMIN 12/31/1967 LIPID PANEL 1992 INFLUENZA VACCINE (#1) 2020 HEMOGLOBIN A1C 05/06/2020 11/05/2019 Implants Implanted Type Area Elevator Examiner Device Shelf Model / Identifier Expiration Date Ser ial / Lot Stent Bili Duodenal [id number] - [id number] IMPLANTS BEBETO STON SCI:ENDO 3432 / Implanted: Qty: 1 on 11/06/2019 by Royal Cain MD at [facility] / Procedures Procedure Name Priority Date/Time Associated Comments Diagnosis RHYTHM STRIP - SCAN 11/11/2019 3:30 PM CDT RHYTHM STRIP - SCAN 11/08/2019 9:40 AM CDT POCT-GLUCOSE METER Routine 11/07/2019 11:44 Resul ts [...] 11:55 ENDOSCOPY URL AM CDT ERCP,PAPILLOTOMY 11/06/2019 11:19 Bile duct leak AM CDT Abnormal findings on imaging test Special Needs ercp w/ anes and fluoro PROCEDURE W/ C-ARM 11/06/2019 11:19 AM CDT Bile duct leak Abnormal findings on imaging test Special Needs ercp w/ anes and fluoro ERCP 11/06/2019 11:19 AM CDT Bile cleo t leak Abnormal [...] 420 ms QTC Calculation(Bazett) 456 ms P [place] 20 degrees R [place] -49 degrees T [place] -11 degrees Normal sinus rhythm Right bundle branch block Left anterior fascicular blo ck Bifascicular block Abnormal ECG No previous ECGs available ECG 12-LEAD Routine 11/05/2019 6:14 PM CDT Resu lts for this procedure are i n the results section . SARS-COV2/RT-PCR ([facility] & Routine 11/05/2019 5:17 PM [...] i n the results section . after 03/20/2019 Results RHYTHM STRIP - SCAN (11/11/2019 3:30 PM CDT)Only the most recent of2 results within the time period is included. Narrative Performed At This result has an attachment that is no t available. POC-Glucose meter (11/07/2019 11:44 AM CDT)Only the most recent of7 results within the time period is included. POC-Glucose Meter 109Comment: : 70 - 110 mg/dL [facility] [address] [facility] [place], [address]: Cancer Registry Manager/Technici an ID = [id number] for ELISA ROBERTS Specimen Blood Performing Organization Address City/State/Zipcode Phone Number [facility] [address] [place] [address] CENTER CBC with platelet count + automated diff (11/07/2019 4:48 AM CDT)Only the most recent of3 resultswithin the time period is included. Pathologist Sig nature WBC 9.9 3.5 - 10.5 [facility] K/L [facility] RBC 3.07 (L) 4.63 - 6.08 [facility] M/L [facility] Hemoglobin 9.1 (L) 13.7 - 17.5 [facility] GM/DL [facility] Hematocrit 28.0 (L) 40.1 - 51.0 % [facility] MCV 91.2 79.0 - 92.2 fL [facility] MCH 29.6 25.7 - 32.2 pg [facility] MCHC 32.5 32.3 - 36.5 [facility] RDW 14.0 11.6 - 14.4 % [facility] Platelets 137 (L) 150 - 450 K/CU [facility] MPV 10.2 9.4 - 12.4 fL [facility] nRBC 0 0 - 0 /100 WBC [facility] % Neutros 77 % [facility] % Lymphs 14 % [facility] % Monos 6 % [facility] % Eos 2 % [facility] % Baso 0 % [facility] # Neutros 7.59 (H) 1.78 - 5.38 [facility] # Lymphs 1.39 1.32 - 3.57 [facility] # Monos 0.56 0.30 - [address]82 [facility]/L [facility] # Eos 0.23 0.04 - 0.54 [facility] # Baso 0.04 0.01 - 0.08 [facility] Immature 0 0 - 1 % [facility] Granulocytes-[facility] Specimen Blood Performing Organization Address City/[facility] Cent[facility] Phone Number [address] [address] CENTER Magnesium (11/07/2019 4:48 AM CDT)Only the most recent of3 resultswithin the time period is included. Pathologist Sig nature Magnesium 1.7 1.6 - 2.6 mg/dL [facility] Specimen Blood Narrative Performed At Cancer Registry Manager ID - [facility] Performing Organization Address [facility] Phone Number [address] [address] [place] Hepatic function panel (11/07/2019 4:48 AM CDT)Only the most recent of3 results within the time period is included. Pathologist Sig nature Protein, Total 5.5 (L) 6.0 - 8.3 gm/dL [facility] Albumin 2.6 (L) 3.5 - 5.0 g/dL [facility] Total Bilirubin 0.9 0.2 - 1.2 mg/dL [facility] Bilirubin, Direct 0.4 0.1 - 0.5 mg/dL [facility] Alkaline Phosphatase 57 40 - 150 U/L [facility] AST 10 5 - 34 U/L [facility] ALT 10 6 - 55 U/L [facility] Specimen Blood Narrative Performed At Cancer Registry Manager ID - [facility] Performing Organization Address [facility] Centercode Phone Number [place] [address] [place] [address] [place] Basic Metabolic Panel (11/07/2019 4:48 AM CDT)Only the most recent of3 results within the time period is included. Sodium 141 136 - 145 meq/L [facility] Potassium 3.7 3.5 - 5.1 meq/L [facility] Chloride 116 (H) 98 - 107 meq/L [facility] CO2 20 (L) 22 - 29 meq/L [facility] BUN 21 7 - 21 mg/dL [facility] Creatinine 1.59 (H) 0.57 - 1.25 [facility] mg/dL [facility] Glucose 114 (H) 70 - 105 mg/dL [facility] Calcium 7.6 (L) 8.4 - 10.2 [facility] mg/dL [facility] EGFR 44Comment: ESTIMATED mL/min/1.73 sq [facility] GFR IS NOT m [facility] ACCURATE [place] CREATININE CLEARANCE IN PREDICTING GLOMERULAR FILTRATION RATE. ESTIMATED GFR IS NOT APPLICABLE FOR DIALYSIS PATIENTS. Specimen Blood Narrative Performed At Cancer Registry Manager ID - [facility] Performing Organization Address City/State/Zipcode Phone Number [address] [address] [place] ERCP (11/06/2019 11:56 AM CDT) Specimen Narrative Performed At FINAL REPORT GE RIS A fluoroscopic unit was utilized for a p rocedure performed in the operating room. No interpretation was re quested. Please refer to the operative report regarding findings. Ple ase refer to PACS for patient radiation dose information. Signed: Kathrine Espinal MD Report Verified Date/Time: 11/06/2019 13:07:58 Reading Location: [facility] Reading Room Procedure Note Interface, External Ris [...] Verified Date/Time: 11/06/2019 1 3:07:58 Reading Location: [facility] Reading Room Performing Organization Address City/[facility] Cent[facility]ode Phone Number GE RIS REPORT OF PROCEDURE - ENDOSCOPY URL (11/06/2019 11:55 AM CDT) Narrative Performed At This result has an attachment that is no t available. ECG 12 lead (11/05/2019 6:14 PM CDT) Specimen Narrative Performed At Ventricular Rate 71 BPM GE MUSE Atrial Rate 71 BPM P-R Interval 176 ms QRS Duration 150 ms Q-T Interval 420 ms QTC Calculation(Bazett) 456 ms P [place] 20 degrees R [place] -49 degrees T [place] -11 degrees Normal sinus rhythm Right bundle [...] 420 ms QTC Calculation(Bazett) 456 ms P [place] 20 degrees R [place] -49 degrees T [place] -11 degrees Normal sinus rhythm Right bundle branch block Left anterior fascicular block Bifascicular block Abnormal ECG No previous ECGs available Confirmed by MD MONGE YOCHAI ([id number]) on 11/06/2019 8:20:18 AM Performing Organization Address City/State/Zipcode Phone Number GE MUSE SARS-CoV2/RT-PCR (Asymptomatic ONLY) (11/05/2019 5:17 PM CDT) SARS-COV2/RT-PCR Not Detected Not Detected, [facility] SARS-COV-2 [facility] PERFORMING LAB [facility] Specimen Other - Nasopharyngeal wall structure (b trina structure) Narrative Performed At Negative results do not preclude SARS-CoV-2 [facility] infection and should not be used as [...] the Act. Fact Sheet for Healthcare Providers: https://www.[employer]/Documents/Xpert%20Xpre ss%20SARS%20CoV-2/Fact%20Sheets/3023802%20SAR S-COV-2%20HEALTHCARE%20PROVIDERS%20FACT%20SHEE T.pdf Fact Sheet for Healthcare Patients: https://www.[employer]/Documents/Xpert%20Xpre ss%20SARS%20CoV-2/Fact%20Sheets/3023801%20SAR S-COV-2%20PATIENT%20FACT%20SHEET.pdf Performing Laboratory: [address] [place] [address] Performing Organization Address City/State/Zipcode Phone Number [address] [address] CENTER PT/aPTT (11/05/2019 2:52 PM CDT) Pathologist Sig nature Protime 15.0 (H) 11.9 - 14.2 seconds [facility] INR 1.2 <=5.9 [facility] PTT 24.4 22.5 - 36.0 seconds [facility] Specimen Blood Narrative Performed At Effective 10/31/2018: PT Reference Range [facility] Change New: 11.9-14.2 Previous: 11.7-14.7 RECOMMENDED COUMADIN/WARFARIN INR THERAPY RANGES STANDARD DOSE: 2.0-3.0 Includes: PROPHYLAXIS for venous thrombosis, systemic embolization; TREATMENT for venous thrombosis and/or pulmonary embolus. HIGH RISK: Target INR is 2.5-3.5 for patients wiht mechanical heart valves. Performing Organization Address City/State/Zipcode Phone Number [facility] [address] [place] [address] CENTER Hemoglobin A1c (11/05/2019 2:52 PM CDT) Pathologist Sig nature Hemoglobin A1C 8.3 (H) 4.3 - 6.1 % [facility] Specimen Blood Performing Organization Address City/State/Zipcode Phone Number [facility] [address] [place] [address] CENTER after 03/20/2019 Insurance Payer Benefit Plan / Subscriber ID Effective Dates Phone Addre ss Type Group BLUE BCBS OS [id number] 2018-Prese [phone] [address] PPO CROSS/BLUE POS/PPO/EPO nt 2 [facility] [address] CDC REVIEW CDC REVIEW [id number] 2019-Presen [place] [address]
--- OUTSIDE RECORDS SUMMARY | 2020-03-20 07:19 | XMS REPORT | Continuity of Care Document ---
:1955 Author Organization [facility] t Address [address] [place] [address] Care Team Providers Name Role Phone Milka BRIGGS, Pan Attending Clinician Bertrand BRIGGS, Jaime Day Attending Clinician Hermelinda Lewis MD Attending Clinician Diane BRIGGS Attending Clinician MILKA Attending Clinician Unavailable MILKA Admitting Clinician Unavailable Payers Payer Name Policy Type Policy Effective Date Expiration Date Sour ce Number ERIC HUTSON/BLUE [id number] 2018 [facility] - Medical POS/PPO/EPOxxxxxx [place] [id number] 2PO [facility] [id number], [place] [address]A[facility] REVIEWCDC [id number] 2019 [facility] s [id number] 00:00:00 - Medic al /2019[place] [address] Problems Condition Condition Condition Status Onset Resolution Last Treating Co mments Source Name Details Category Date Date Treatment Clinician Date Acute Acute Disease Active [facility] St kidney kidney 6- kes - injury injury 00:00: Medical [address] [place] [address] Essential Essential Disease Active [facility] St hypertensi hypertensi -04 Ananya kes - on on 00:00: Medical 00 Center Non-insuli Non-insuli Disease Active [facility] n n 6-04 [facility] - dependent dependent 00:00: [facility] glenda type 2 type 2 00 Center diabetes diabetes mellitus mellitus Bile leak, Bile leak, Disease Active [facility] postoperat postoperat 6-03 Ananya kes - deep deep 00:00: [place] [address] Center BMI BMI Problem Active [facility] 40.0-44.9, 40.0-44.9, Ananya kes - adult adult [facility] Nocturia Nocturia Problem [facility] Type 2 Type [address] diabetes diabetes [facility] - mellitus mellitus Memori a with with l hyperglyce hyperglyce Ou tpati annita [facility] HTN, goal HTN, goal Problem Active [facility] below below [facility] - 130/80 130/80 [facility] Type 2 Type [address] diabetes diabetes [facility] - mellitus mellitus Memori a with with l diabetic diabetic Outpat i nephropath nephropath en t y y Clinics Mixed Mixed Problem Active [facility] hyperlipid hyperlipid Ananya kes - emia emia [facility] Proteinuri Proteinuri Problem Active [facility] a, a, [facility]ukes - unspecifie unspecifie Me moria d type d type l [facility] Allergies, Adverse Reactions, Alerts This patient has no known allergies or adverse reactions. Social History Social Habit Start Date Stop Date Quantity Comments Source History [facility] EVANGELISTA [facility] - Alcohol Std Drinks [facility] History [facility]ANGELIST[facility] - Alcohol Binge Medical [address] Sex Assigned At [facility] Exposure to Not sure EVANGELISTA [place] - SARS-CoV-2 (event) [facility] Tobacco use and 2020-03-10 2020-03-10 Never used [facility] St Ananya sanchezs - exposure 00:00:00 00:00:00 [facility] Alcohol intake 2020-03-10 2020-03-10 Current EVANGELISTA Hoyos es - 00:00:00 00:00:00 non-drinker of Medical Ce nter alcohol (finding) History [facility] 2020-02-05 2020-02-05 1 EVANGELISTA Ballard - Alcohol Frequency 00:00:00 00:00:00 Medical Center Smoking Status Start Date Stop Date Source Never [facility] Medications Ordered Filled Start Stop Current Ordering Indication Dosage Frequency Signature Comments Components Source Medication Medication Date Date Medication? Clinician (SIG) Name Name aspirin 81 2020-0 Yes 81mg QD Take [address] MG EC 902 by mouth [facility]ukes - tablet 14:57: daily. Medical 38 [place] multivitami 2019-0 Yes 1{capsu QD Take [address] n capsule 11-06 le} capsule by Luke s - 17:31: mouth Medical 01 daily. [place] metFORMIN 0 2020- No 500mg Take [address] (GLUCOPHAGE 11-06 06-04 mg by [facility]ukes - ) 500 MG 14:33: 00:00 mouth 2 Medic al tablet 02 :00 (two) Center times daily with breakfast and dinner. lisinopriL 0 2020- No 20mg QD Take [address] (PRINIVIL,Z 11-06- by mouth Xiomy es - ESTRIL) 20 14:33: 00:00 daily. Medi glenda MG tablet 02 :00 [place] aspirin 81 2019-0 2020- No 81mg QD Take [address] MG EC 11-06 06- by mouth [facility]ukes - tablet 14:33: 00:00 daily. Medical 02 :00 [place] sodium 2020-0 Yes 125 ml/hr. [facility]I S t chloride 6-04 [facility]ukes - 0.9% (NS) 00:00: Medical infusion 00 Center piperacilli 0 Yes 3.375g Inject [facility] n-tazobacta 6-04 3.375 g [facility]ukes - m (ZOSYN) 00:00: intravenou Me dical MBP 3.375 g [address] in 100 mL 6 (six) NS hours. ondansetron 2019-0 Yes 4mg Inject [address] (ZOFRAN) 4 6-04 mLs (4 mg Luke s - mg/2 mL 00:00: total) Medical injection 00 intravenou Cent er sly every 6 (six) hours as needed. naloxone 2019-0 Yes .1mg Inject [facility] (NARCAN) 6-04 [...] to lack of IV access). dextrose 50 Yes 12.5g Inject [address] % in water 6-04 mLs (12.5 Luke s - (DEXTROSE 00:00: g total) Medi glenda 50%, D50W,) 00 intravenou Ce nter Syrg sly as injection needed (blood sugar less than 70 and patient unable to take PO juice or soda). insulin 2020- No 0U Inject 0-[address] lispro 6-04 06-04 Units [facility]ukes - (HUMALOG) 00:00: 23:59 subcutaneo M edical 100 unit/mL 00 :00 usly every Ce nter injection night as needed (High blood sugar). insulin 2020- No 0U Inject [facility] lispro 6-04 06-04 0-16 Units [facility]ukes - (HUMALOG) 00:00: 23:59 subcutaneo M edical 100 unit/mL 00 :00 usly as Cente r injection needed (High blood sugar). metoprolol 2019- No 25mg Q.5D Take [address] tartrate 6- 10-06 tablet (25 Luke s - (LOPRESSOR) 00:00: 00:00 mg total) Medical 25 MG 00 :00 by mouth 2 Center tablet (two) times daily. acetaminoph 2019- No 650mg Take [address] en 6-04 10-06 tablets [facility]ukes - (TYLENOL) 00:00: 00:00 (650 mg Medi glenda 325 MG 00 :00 total) by Center tablet mouth every 4 (four) hours as needed for up to 360 days. bisacodyL 2019- No 10mg Take 2 [facility] t (DULCOLAX) 11-06-04 tablets [facility]ukes - 5 mg EC 00:00: 23:59 (10 mg Medical tablet 00 :00 total) by Center mouth daily as needed for Constipati on for up to 30 days. HYDROcodone 2019- No 1{tbl} Take [address] -acetaminop 11-06 tablet by Ananya murphy (NORCO 00:00: 23:59 mouth Medic al 7.5-325) 00 :00 every 4 Center 7.5-325 mg (four) per tablet hours as needed for up to 10 days. Max Daily Amount: 6 tablets bisacodyL No 10mg Place [address] (DULCOLAX) 11-06 suppositor Ananya kes - 10 mg 00:00: 23:59 y (10 mg Medical suppository 00 :00 total) Center rectally daily as needed for up to 10 days. Lisinopril- Lisinopril- Yes Hayder [address] Hydrochloro Hydrochloro 7-16 Guard[place] [facility] - thiazide thiazide 00:00: Memor ia 00 l [facility] Clinics GlipiZIDE GlipiZIDE Yes Hayder [address] 6-06 Guardado [facility] - 00:00: Memoria 00 l [facility] Jardiance Jardiance 2018- No Hayder [address] 5-18 07-16 Guardado [facility] - 00:00: 00:00 Memoria 00 :00 l [facility] Clinics Lisinopril- Lisinopril- Yes Hayder [address] Hydrochloro Hydrochloro Guardado [facility] - thiazide thiazide [facility] Simvastatin Simvastatin Yes Hayder [address] Guardado in the Lukes - evening [facility] Metformin Metformin Yes Hayder [address] HCl HCl Guardado with a Lukes - meal Memoria l Outpati ent Clinics Vital Signs Vital Name Observation Time Observation Value Comments Source Body height 2020-03-10 15:50:00 167.6 cm [facility] Body weight 2020-03-10 15:50:00 90.719 kg [facility] BMI 2020-03-10 15:50:00 32.28 kg/m2 [facility] Systolic blood 2019-11-07 12:00:00 166 mm[Hg] [facility] Diastolic blood 2019-11-07 12:00:00 75 mm[Hg] [facility] Heart rate 2019-11-07 12:00:00 64 /min [facility] Body temperature 2019-11-07 12:00:00 36.61 [facility] Respiratory rate 2019-11-07 12:00:00 18 /min [facility] Oxygen saturation in 2019-11-07 12:00:00 97 /min [facility] Arterial blood by Medical Ce nter Pulse oximetry Procedures Procedure Date / Time Performed Performing Clinician [facility] e RHYTHM STRIP - SCAN 2019-11-11 15:30:24 Provider, Default [facility] RHYTHM STRIP - SCAN 2019-11-08 09:40:24 Provider, Yovany [facility] POCT-GLUCOSE METER 2019-11-07 11:44:00 Milka [facility] POCT-GLUCOSE METER 2019-11-07 07:34:00 Milka [facility] BASIC METABOLIC PANEL 2019-11-07 04:48:00 Pan Torres [facility] (7) [facility] MAGNESIUM 2019-11-07 04:48:00 Pan Torres [facility] HEPATIC FUNCTION PANEL 2019-11-07 04:48:[address] [facility] CBC W/PLT COUNT & AUTO 2019-11-07 04:48:00 Milka [facility] POCT-GLUCOSE METER 2019-11-06 20:38:00 Milka [facility] POCT-GLUCOSE METER 2019-11-06 16:21:00 Giveon, [facility] [place] ERCP 2019-11-06 11:56:00 Diane [facility] REPORT OF PROCEDURE - 2019-11-06 11:55:51 Royal Contreras [facility] 2019-11-06 11:19:00 Diane [facility] PROCEDURE W/ C-ARM 2019-11-06 11:19:00 Diane [facility] ERCP,PAPILLOTOMY 2019-11-06 11:19:00 Diane [facility] POCT-GLUCOSE METER 2019-11-06 07:29:00 Milka [facility] BASIC METABOLIC PANEL 2019-11-06 05:49:00 Milka [facility] () [facility] MAGNESIUM 2019-11-06 05:49:00 [facility] 2019-11-06 05:49:[address] [facility] CBC W/PLT COUNT & AUTO 2019-11-06 05:49:[facility] PO[facility]SE METER 2019-11-05 23:04:00 Milka [facility] ECG 12-LEAD 2019-11-05 18:14:38 Unknown, Hl7 Doctor [facility] SARS-COV2/RT-PCR ([facility] & 2019-11-05 17:17:00 Milka [facility] - REF LABS) [facility] POCT-GLUCOSE METER 2019-11-05 16:37:[facility] 2019-11-05 14:52:[address] [facility] MAGNESIUM 2019-11-05 14:52:00 [facility]OLIC PANEL 2019-11-05 14:52:[facility] PT/APTT 2019-11-05 14:52:00 [facility] HEMO[facility]IN A1C 2019-11-05 14:52:00 Pan Torres [facility] CBC W/PLT COUNT & AUTO 2019-11-05 14:52:00 [facility] [place] [facility] [place] [facility] Plan of Care Planned Activity Planned Date Details Comments Source Future Scheduled Test 2020-05-06 Hemoglobin A1c [facility] - 00:00:00 measurement Medical Center (procedure) [code = 97490364] Future Scheduled Test 2020-02-04 INFLUENZA VACCINE C [facility] Cata - 00:00:00 (#1) [code = [facility] Center INFLUENZA VACCINE (#1)] Future Scheduled Test 1992 Lipid panel [facility]johan - 00:00:00 (procedure) [code = Medical Center 93403272] Future Scheduled Test 1967-12-31 DIABETIC EYE EXAM C [facility] Lujohan - 00:00:00 [code = DIABETIC EYE [facility] Center EXAM] Future Scheduled Test 1967-12-31 Diabetic foot [facility] Issa Ivy - 00:00:00 examination Medical Center (regime/therapy) [code = 820946261] Future Scheduled Test 1967-12-31 Urine screening for [facility]johan - 00:00:00 protein (procedure) [facility] [code = 549597886] Future Scheduled Test 1955 Screening for [facility] Issa Ivy - 00:00:00 malignant neoplasm of [facility] colon (procedure) [code = 456662655] Future Appointment 2020-04-16 Royal Contreras MD, [facility] St Ivy - 14:00:[address], [place] [address] Future Appointment 2020-04-16 Royal Contreras MD, [facility]ata - 14:00:[address], [place] [address] Encounters Start End Encounter Admission Attending Care Care Encounter Source Date/Time Date/Time Type Type Clinicians Facility Department ID 2017-12-18 2017-12-18 Outpatient Graham [facility] [id number] 14:00:00 14:00:00 [facility] 2017-10-23 2017-10-23 Outpatient Graham [place] [id number] 15:32:00 15:32:00 [facility] 2017-10-20 2017-10-20 Outpatient Graham [place] [id number] 10:30:00 10:30:00 [facility] 2017-10-02 2017-10-02 Outpatient Graham [place] [id number] 10:30:00 10:30:00 [facility] Results Test Description Test Time Test Comments Results Result Comments Source POC-Glucose meter 2019-11-07 11:55:00 Test Item Value Reference Range Interpretation Comme nts POC-Glucose Meter (test code = 109 mg/dL 70-110 : TESTED AT [facility] [address] [place] [id number]) [facility], [facility] 30: Disability Insurance Claim Examiner/Techni alyssa ID = [id number] for ROSALES ROBERTS E Lab Interpretation (test code = Normal 06059-9) [facility] [id number] 11:55:00 Test Item Value Reference Range Interpretation Comments POC-GLUCOSE METER 109 mg/dL 70-110 : TESTED A T [facility] [address] (BEAKER) (test code = MARY Taylor [facility], 1538) [address]: Disability Insurance Claim Examiner/Techni alyssa ID = [id number] for ELISA QUINN POCT-GLUCOSE [id number] 07:45:00 Test Item Value Reference Range Interpretation Comments POC-GLUCOSE METER 106 mg/dL 70-110 : TESTED A T [facility] [address] (BEAKER) (test code = MARY Taylor [facility], 1538) [address]: Disability Insurance Claim Examiner/Techni alyssa ID = [id number] for ELISA QUINN Basic Metabolic [id number] 05:46:00 Test Item Value Reference Range Interpretation Comments Sodium (test code = 141 meq/L 350-184 8949-2) Potassium (test code = 3.7 meq/L 3.5-5.1 2823-3) Chloride (test code = 116 meq/L 98-107 H 5-0) CO2 (test code = 20 meq/L 22-29 L 8-9) BUN (test code = 21 mg/dL 7-21 3094-0) Creatinine (test code 1.59 mg/dL 0.57-1.25 H = 2160-0) Glucose (test code = 114 mg/dL 70-105 H 2345-7) Calcium (test code = 7.6 mg/dL 8.4-10.2 L 14270-4) EGFR (test code = 44 mL/min/1.73 [place] [address]-2) NOT ACCURATE CREATININE CLEARANCE IN PREDICTING GLOMERULAR FILTRATION RATE . ESTIMATED GFR I S NOT APPLICABLE FOR DIALYSIS PATIENTS. DARREN (test code = DARREN) Disability Insurance Claim Examiner ID - [place] Lab Interpretation Abnormal (test code = 44596-4) [facility] METABOLIC [id number] 05:46:00 Test Item Value Reference Range Interpretation [...] S NOT APPLICABLE FOR DIALYSIS PATIEN TS. Disability Insurance Claim Examiner ID - LAHepatic function [id number] 05:45:00 Test Item Value Reference Range Interpretation Comments Protein, Total (test code = 5.5 6.0- 8.3 gm/dL L 2885-2) Albumin (test code = 2.6 g/dL 3.5-5 L 68359-5) Total Bilirubin (test code = 0.9 mg/dL 0.2-1.2 1974-2) Bilirubin, Direct (test code 0.4 mg/dL 0.1-0.5 = 1968-7) Alkaline Phosphatase (test 57 U/L 40-150 code = 6768-6) AST (test code = 1920-8) 10 U/L 5-34 ALT (test code = 1742-6) 10 U/L 6-55 DARREN (test code = DARREN) Disability Insurance Claim Examiner ID - [place] Lab Interpretation (test Abnormal code = 34981-9) [facility] 05:45:00 Test Item Value Reference Range Interpretation Comments Magnesium (test code = 1.7 mg/dL 1.6-2.6 25015-0) DARREN (test code = DARREN) Disability Insurance Claim Examiner ID - [place] Lab Interpretation (test Normal code = 10220-9) [facility]2020-06-04 05:45:00 Test Item Value Reference Range Interpretation Comments MAGNESIUM (BEAKER) (test code = 1.7 mg/dL 1.6-2.6 627) Disability Insurance Claim Examiner ID - LAHEPATIC FUNCTION [id number] 05:45:00 Test Item Value Reference Range Interpretation [...] (test code = 10 U/L 6-55 347) Disability Insurance Claim Examiner ID - LACBC with platelet count + automated [id number] 05:09:00 Test Item Value Reference Range Interpretation [...] K/CU MM L MPV (test code = 44549-8) 10.2 fL 9.4-12.4 nRBC (test code = [...] 2801) Lab Interpretation (test code = Abnormal 36676-1) [facility] W/PLT COUNT & AUTO [id number] 05:09:00 Test Item Value Reference Range Interpretation [...] PERCENT (BEAKER) (test code = 2801) POCT-GLUCOSE [id number] 20:52:00 Test Item Value Reference Range Interpretation Comments POC-GLUCOSE METER 113 mg/dL 70-110 H : TESTED A T [facility] 6720 (BEAKER) (test code = [facility], 1538) [address]: Disability Insurance Claim Examiner/Techni alyssa ID = [id number] for MARIE OLIVER POCT-GLUCOSE [id number] 16:32:00 Test Item Value Reference Range Interpretation Comments POC-GLUCOSE METER 124 mg/dL 70-110 H : TESTED A T [facility] 6720 (BEAKER) (test code = [facility], 1538) [address]: Disability Insurance Claim Examiner/Techni alyssa ID = [id number] for ELISA QUINN IN, [id number] 13:07:00Reason for exam:->abnormal imagingFINAL REPORT A fluoroscopic unit was utilized for a procedure performed in the operating room. No interpretation was requested. Please refer to the operative report regarding findings. Please refer to PACS for patient radiation dose information. Signed: Kathrine Bullard Verified Date/Time: 11/06/2019 13:07:58 Reading Location: [facility] Radiology Reading Room [facility] [id number] 13:07:00Interface, External Ris In - 11/06/2019 1:10 PM CDTFINAL REPORT A fluoroscopic unit was utilized for a procedure performed in the operating room. No interpretation was requested. Please refer to the operative report regarding findings. Please refer to PACS for patient radiationdose information. Signed: Kathrine Bullard Verified Date/Time: 11/06/2019 13:07:58 Reading Location: [facility] Radiology Reading Room [facility] 12 [id number] 08:20:22Interface, External Ris In - 11/06/2019 8:20 AM CDTVentricular Rate 71 BPMAtrial Rate 71 BPMP-R Inte rval 176 msQRS Duration 150 msQ-T Interval 420 msQTC Calculation(Bazett) 456 msP [place] 20 degreesR [place] -49 degreesT [place] -11 degreesNormal sinus rhythmRight bundle branch blockLeft anterior fascicular block Bifascicular block Abnormal ECGNo previous ECGs availableConfirmed by MD SALEEM, MERLENE ([id number]) on 11/06/2019 8:20:18 [facility] [id number] 07:41:00 Test Item Value Reference Range Interpretation Comments POC-GLUCOSE METER 132 mg/dL 70-110 H : TESTED A T [facility] 6720 (BEAKER) (test code = [place], 1538) [address]: Disability Insurance Claim Examiner/Techni alyssa ID = [id number] for ELISA QUINN [id number] 06:34:00 Test Item Value Reference Range Interpretation Comments MAGNESIUM (BEAKER) (test code = 1.6 mg/dL 1.6-2.6 627) Disability Insurance Claim Examiner ID - SOWMYA MBASIC METABOLIC [id number] 06:34:00 Test Item Value Reference Range Interpretation [...] S NOT APPLICABLE FOR DIALYSIS PATIEN TS. Disability Insurance Claim Examiner ID - SOWMYA EPATIC FUNCTION [id number] 06:34:00 Test Item Value Reference Range Interpretation [...] (test code = 14 U/L 6-55 347) Disability Insurance Claim Examiner ETHAN - SOWMYA [facility] W/PLT COUNT & AUTO [id number] 06:29:00 Test Item Value Reference Range Interpretation [...] PERCENT (BEAKER) (test code = 2801) POCT-GLUCOSE [id number] 23:18:00 Test Item Value Reference Range Interpretation Comments POC-GLUCOSE METER 126 mg/dL 70-110 H : TESTED A T [facility] 6720 (BEAKER) (test code = ARONJUSTINE [place], 1538) [address]: Disability Insurance Claim Examiner/Techni alyssa ID = [id number] for BRIAN LYON Hemoglobin [id number] 20:09:00 Test Item Value Reference Range Interpretation Comments Hemoglobin A1C (test code = 4548-4) 8.3 % 4.3-6.1 H Lab Interpretation (test code = Abnormal 08979-3) [facility] [id number] 20:09:00 Test Item Value Reference Range Interpretation Comments HEMOGLOBIN A1C (BEAKER) (test code = 8.3 % 4.3-6.1 H 368) SARS-CoV2/RT-PCR (Asymptomatic ONLY)2019-11-05 19:00:00 Test Item Value Reference Range Interpretation Comments SARS-COV2/RT-PCR Not Detected Not Detected, (test code = Negative 62619-4) SARS-COV-2 [facility] PERFORMING LAB (test code = 09113-3) DARREN (test code = Negative results do [...] of the Act. Fact Sheet for Healthcare Providers:https://www.Nuvola Systems/Documents/Xper t%20Xpress%20SARS%20CoV- 2/Fact%20Sheets/3023802 %12OCDU-LCG-2%20HEALTHCA RE%20PROVIDERS%20FACT%20 SHEET.pdf Fact Sheet for Healthcare Patients:https://www.Travolver/Documents/Xpert %20Xpress%20SARS%20CoV-2 /Fact%20Sheets/3023801% 84DCJV-QOH-2%20PATIENT%2 0FACT%20SHEET.pdf Performing Laboratory:[place] [address] [address] StreetARS-COV2/RT-PCR ([facility] & REF LABS)2019-11-05 19:00:00 Test Item Value Reference Range Interpretation Comments SARS-COV2/RT-PCR (test Not Detected Not Detected, Negative code = 4385255) SARS-COV-[address] [facility] (test code = 1918192) Negative results do not preclude SARS-CoV-2 infection [...] of the Act.Fact Sheet for Healthcare Pro viders:https://www.DealCurious/Documents/Xpert%20Xpress%20SARS%20CoV-2/Fact%20Sh eets/302-3802%92FOKR-XIZ-0%20HEALTHCARE%20PROVIDERS%20FACT%20SHEET.pdfFact Sheet for Healthcare Patients:https://www.Nifti/Documents/Xpert%20Xpress%20SARS%20CoV-2/Fact%20Sheets/302-3801%20SARS-COV -2%20PATIENT%20FACT%20SHEET.pdfPerforming Laboratory:[facility], [place] [address]EUEG-LEQKUJO [id number] 16:49:00 Test Item Value Reference Range Interpretation Comments POC-GLUCOSE METER 230 mg/dL 70-110 H : TESTED A T [facility] 6720 (BEAKER) (test code [facility], = 1538) [address]: Disability Insurance Claim Examiner/Techni alyssa ID = [id number] for VANNA DIXON [id number] 15:37:00 Test Item Value Reference Range Interpretation Comments MAGNESIUM (BEAKER) (test code = 1.7 mg/dL 1.6-2.6 627) Disability Insurance Claim Examiner ID - BSBASIC METABOLIC [id number] 15:37:00 Test Item Value Reference Range Interpretation [...] S NOT APPLICABLE FOR DIALYSIS PATIEN TS. Disability Insurance Claim Examiner ID - BSHEPATIC FUNCTION [id number] 15:37:00 Test Item Value Reference Range Interpretation [...] (test code = 16 U/L 6-55 347) Disability Insurance Claim Examiner ID - [id number] 15:27:00 Test Item Value Reference Range Interpretation Comments Protime (test code = 15.0 11.9- 14.2 H 5902-2) seconds INR (test code = 1.2 <=5.9 6301-6) PTT (test code = 24.4 22.5- 36.0 46837-7) seconds DARREN (test code = DARREN) Effective 10/31/2018: PT Reference Range ChangeNew: 11.9-14.2 Previous: 11.7-14.7 RECOMMENDED COUMADIN/WARFARIN INR THERAPY RANGESSTANDARD DOSE: 2.0-3.0 Includes: PROPHYLAXIS for venous thrombosis, systemic embolization; TREATMENT for venous thrombosis and/or pulmonary embolus.HIGH RISK: Target INR is 2.5-3.5 for patients wiht mechanical heart valves. Lab Interpretation Abnormal (test code = 88474-9) [facility]/[id number] 15:27:00 Test Item Value Reference Range Interpretation [...] mechanical heart valves.CBC W/PLT COUNT & AUTO [id number] 15:14:00 Test Item Value Reference Range Interpretation [...] % 0-1 PERCENT (BEAKER) (test code = 4310)
[2020-03-20] MEDS ORDERED: CEFAZOLIN/SWI 1gm 1 GM/10 ML SYR ONE (08:02)
[2020-03-20] MEDS ORDERED: Ringers Lactate 1,000 ML IV ONE (08:02)
[2020-03-20] MEDS ORDERED: FENTANYL CITR 100 MCG/2 ML ONE ×2 (08:55→09:39)
[2020-03-20] MEDS ORDERED: propofoL 200 MG/20 ML VIAL IV ONE (09:39)
[2020-03-20] MEDS ORDERED: MIDAZOLAM HCL 2 MG/2 ML INJ ONE (09:39)
[2020-03-20] MEDS ORDERED: LIDOCAINE 1% MPF 5 ML VIAL ONE (09:39)
[2020-03-20] MEDS ORDERED: KETOROLAC 30 MG/ML INJ ONE (10:05)
[2020-03-20] MEDS ORDERED: ONDANSETRON 4 MG/2 ML VIAL ONE (10:06)
--- NOTE | 2020-03-20 10:46 | OP ---
Date of Procedure: 03/20/2020 Surgeon: Dev Walker MD Preoperative Diagnosis: Left groin abscess. Postoperative Diagnosis: Left groin abscess with extension of the abscess into the left hemiscrotum. Procedure Performed: Incision and drainage and debridement of left hemiscrotal abscess. Estimated Blood Loss: Minimal. Specimens: Pus. Finding: As above. Anesthesia: General. Complications: None. Disposition: The patient tolerated the procedure in stable condition, taken to Recovery in good gene ral condition. Procedure In Detail: The patient was brought to the OR and placed in supine position. General anest hesia was begun. Patient was placed in the frog-leg position. Prepped and draped in usual sterile f ashion. Then Marcaine 0.5% was infiltrated locally and a 15 blade was used to make approximately a 4 cm incision. Subcutaneous tissue was divided. Deep to that pus under pressure evacuated. Loculati on broken up. Necrotic tissue was debrided. Wound was irrigated and bleeding was controlled with ca utery. Wet-to-dry normal saline, dressing change applied. Patient tolerated the procedure in stable condition, taken to Recovery in good general condition. Discharge Note: The patient will go to Day Surgery and home when stable. Disposition: Home. Condition: Stable. Discharge Instructions: Resume home medications and diet. Activity as tolerated. No heavy lifting. Remove outer dressing in a.m. Wet-to-dry normal saline dressing changes daily. Follow up with [facility] in 2 weeks. Keflex as ordered. Tylenol No. 3 for pain. /MODL Voice ID: [id number] Report ID: [id number]
[2020-03-20] MEDS ORDERED: HYDROCODONE/APAP 7.5/325 MG TAB ONE (11:48)
[2020-03-20 14:35] VITALS: BP 154/76; TEMP 97; O2SAT 99
== END 2020-03-20 12:43 | disposition home or self-care (01) ==
LOC: OR 07:10
PROVIDERS: ATTEND Surgery
PROC: 0J9B0ZZ Drainage of Perineum Subcutaneous Tissue and Fascia, Open Approach (ICD-10-PCS; principal; 2020-03-20 09:30)
DX: L02.214 Cutaneous abscess of groin (principal); Z20.828 Contact with and (suspected) exposure to other viral communicable diseases
CPT/HCPCS: 93005; 87070; 85025; 80048; 36415; 87205; 82947; 87075; 71046; 10060; U0002; J2704; J2250; J3010 ×2; J0690; J7120; J2405

== ENCOUNTER 2021-10-10 07:23 | Emergency (ER) | payer BC ==
--- OUTSIDE RECORDS SUMMARY | 2021-10-10 07:26 | XMS REPORT | Continuity of Care Document ---
:1955 Author Organization [facility] t Address [address] [place] [address] Care Team Providers Name Role Phone LLUVIA TONG Primary Care Physician Unavailable ADDY GORDON Attending Clinician Unavailable JOI Attending Clinician Unavailable GIVEON Attending Clinician Unavailable Adebayo Gordon MD Attending Clinician Only, Test Attending Clinician Unavailable Pob, Lab Main Attending Clinician Unavailable ADEBAYO GORDON Admitting Clinician Unavailable JOI Admitting Clinician Unavailable NENAON Admitting Clinician Unavailable Adebayo Gordon MD Admitting Clinician Payers Payer Name Policy Type Policy Number Effective Date Expiration Date S ource [place] [facility] [id number] 2018 [facility] 00:00:00 BCBS OS POS/PPO/EPO [id number] 2018 00:00:00 CDC REVIEW [id number] 2019 00:00:00 ZZCDCREVIEW [id number] 2018 2018 00:00:00 00:00:00 Problems Condition Condition Condition Status Onset Resolution Last Treating Co mments Source Name Details Category Date Date Treatment Clinician Date BMI BMI Problem Active NPI:174 40.0-44.9, 40.0-44.9, 04 60299 adult adult Nocturia Nocturia Problem Active NPI:1 74 [id number] 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 [id number] mellitus mellitus with with hyperglyce hyperglyce annita annita HTN, goal HTN, goal Problem Active NPI :174 below below [id number] 130/80 130/80 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 304401 9 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 Mixed Mixed Problem Active NPI:174 hyperlipid hyperlipid 04 06126 emia emia Proteinuri Proteinuri Problem Active N PI:174 a, a, [id number] unspecifie unspecifie d type d type Allergies, Adverse Reactions, Alerts Allergy Allergy Status Severity Reaction(s) Onset Inactive Treating Comm ents Source Name Type Date Date Clinician NO KNOWN Drug Active NPI:183 ALLERGIE Class [id number] S NO KNOWN Allergy Active NPI:118 ALLERGIE [id number] S Social History Social Habit Start Date Stop Date Quantity Comments Source Exposure to Not sure NPI:[id number] 1 SARS-CoV-2 (event) Tobacco use and 2021-05-12 2021-05-12 Never used NPI:89740 04565 exposure 00:00:00 00:00:00 [birth year] NPI:54017 42817 00:00:00 00:00:00 Smoking Status Start Date Stop Date Source Unknown if ever smoked NPI:95627 45517 Never smoker Medications Ordered Filled Start Stop Current Ordering Indication Dosage Frequency Signature Comments Components Source Medication Medication Date Date Medication? Clinician (SIG) Name Name lactated 2020-06 Yes 1000mL at 42 NPI:18 3 ringers IV 2-09 mL/hr, [id number] infusion 15:30: 1,000 mL, 1,000 mL 00 IV Infusion, CONTINUOUS , Starting on Amanda 05/13/21 at 0930, Until Discontinu ed, Routine, PACU lactated 2020-06- No 1000mL at 42 NPI:1 83 ringers IV 2 12-09 mL/hr, [id number] 1 infusion 15:30: 17:35 1,000 mL, 1,000 mL 00 :53 IV Infusion, CONTINUOUS , Starting on Amanda 05/13/21 at 0930, Until Aamnda 05/13/21 at 1135, Routine, PACU ondansetron 2020-06 Yes 4mg 4 mg, Slow NPI:183 (ZOFRAN - IV Push, [id number] (PF)) 15:25: PRN, 1 injection 4 29 dose, mg Starting on Amanda 05/13/21 at 0925, Until Discontinu ed, Routine, Nausea and Vomiting (N/V), PACU ondansetron 2020-06- No 4mg 4 mg, Slow NPI:183 (ZOFRAN -05-13 IV Push, [id number] (PF)) 15:25: 17:35 PRN, 1 injection 4 29 :53 dose, mg Starting on Amanda 05/13/21 at 0925, Until Amanda 05/13/21 at 1135, Routine, Nausea and Vomiting (N/V), PACU NaCl 0.9% 2020-06 Yes PRN, NPI:183 (NS) 07-14 Starting [id number] injection 15:01: on Amanda 00 05/13/21 at 0901, Until Discontinu ed, Routine, Intra-op NaCl 0.9% 2020-06- No PRN, NPI:183 (NS) 07-14 Starting [id number] injection 15:01: 17:35 on Amanda 00 :53 05/13/21 at 0901, Until Amanda 05/13/21 at 1135, Routine, Intra-op neomycin-po 2020-06 Yes PRN, NPI:18 3 lymyxin-dex 07-14 Starting 1315 781 amethasone 15:00: on Amanda (MAXITROL) 00 05/13/21 at 3.5 0900, mg/g-10,000 Until unit/g-0.1 Discontinu % ed, ophthalmic Routine, ointment Intra-op neomycin-po 2020-06- No PRN, NPI:1 83 lymyxin-dex 07-14 Starting 131 8781 amethasone 15:00: 17:35 on Amanda (MAXITROL) 00 :53 05/13/21 at 3.5 0900, mg/g-10,000 Until Amanda unit/g-0.1 05/13/21 at % 1135, ophthalmic Routine, ointment Intra-op gentamicin 2020-06 Yes PRN, NPI:183 injection 07-14 Starting [id number] 1 14:59: on Amanda 00 05/13/21 at 0859, Until Discontinu ed, GARRETT, Intra-op gentamicin 2020-06- No PRN, NPI:18 3 injection 07-14 Starting [id number] 81 14:59: 17:35 on Amanda 00 :53 05/13/21 at 0859, Until Amanda 05/13/21 at 1135, GARRETT, Intra-op ceFAZolin 2020-06 Yes PRN, NPI:183 (ANCEF) 07-14 Starting [id number] injection 14:58: on Amanda 00 05/13/21 at 0858, Until Discontinu ed, GARRETT, Intra-op dexamethaso 2020-06 Yes PRN, NPI:18 3 ne 07-14 Starting [id number] (DECADRON 14:58: on Amanda PHOSPHATE) 00 05/13/21 at injection 0858, Until Discontinu ed, Routine, Intra-op dexamethaso 2020-06- No PRN, NPI:1 83 ne 07-14 Starting [id number] (DECADRON 14:58: 17:35 on Amanda PHOSPHATE) 00 :53 05/13/21 at injection 0858, Until Amanda 05/13/21 at 1135, Routine, Intra-op ceFAZolin 2020-06- No PRN, NPI:183 (ANCEF) 07-14 Starting [id number] injection 14:58: 17:35 on Amanda 00 :53 05/13/21 at 0858, Until Amanda 05/13/21 at 1135, GARRETT, Intra-op EPINEPHrine 2020-06 Yes PRN, NPI:18 3 (PF) - Starting [id number] 1:1,000 (1 14:45: on Amanda mg/mL) 00 05/13/21 at (ADRENALIN 0845, (PF)) Until injection Discontinu ed, Routine, Intra-op DUOVISC 2020-06 Yes PRN, NPI:183 (DUOVISC 07-14 Starting [id number] VISCO 14:45: on Amanda ELASTIC) 3 00 05/13/21 at %-4 %(0.5 0845, mL) 1 % Until (0.55 mL) Discontinu intraocular ed, injection Routine, Intra-op balanced 2020-06 Yes PRN, NPI:183 salt soln 07-14 Starting [id number] 1 no.2 irrig. 14:45: on Amanda (BSS) 00 05/13/21 at ophthalmic 0845, solution Until Discontinu ed, Routine, Intra-op EPINEPHrine 2020-06- No PRN, NPI:1 83 (PF) 07-14 Starting [id number] 1:1,000 (1 14:45: 17:35 on Amanda mg/mL) 00 :53 05/13/21 at (ADRENALIN 0845, (PF)) Until Amanda injection 05/13/21 at 1135, Routine, Intra-op DUOVISC 2020-06- No PRN, NPI:183 (DUOVISC 07-14 Starting [id number] 1 VISCO 14:45: 17:35 on Amanda ELASTIC) 3 00 :53 05/13/21 at %-4 %(0.5 0845, mL) 1 % Until Amanda (0.55 mL) 05/13/21 at intraocular 1135, injection Routine, Intra-op balanced 2020-06- No PRN, NPI:183 salt soln 07-14 Starting 22862 81 no.2 irrig. 14:45: 17:35 on Amanda (BSS) 00 :53 05/13/21 at ophthalmic 0845, solution Until Amanda 05/13/21 at 1135, Routine, Intra-op water for 2020-06 Yes PRN, NPI:183 irrigation 07-14 Starting 75119 81 irrigation 14:43: on Amanda solution 00 05/13/21 at 0843, Until Discontinu ed, Routine, Intra-op water for 2020-06- No PRN, NPI:183 irrigation 07-14 Starting 1318 781 irrigation 14:43: 17:35 on Amanda solution 00 :53 05/13/21 at 0843, Until Amanda 05/13/21 at 1135, Routine, Intra-op tetracaine 2020-06 Yes PRN, NPI:183 (PONTOCAINE 07-14 Starting 1318 781 ) 0.5 % 14:39: on Amanda ophthalmic 00 05/13/21 at drops 0839, Until Discontinu ed, Routine, Intra-op eye block 2020-06 Yes PRN, NPI:183 syringe 11 07-14 Starting 13059 81 mL 14:39: on Amanda 00 05/13/21 at 0839, Until Discontinu ed, Intra-op tetracaine 2020-06- No PRN, NPI:18 3 (PONTOCAINE 07-14 Starting 131 8781 ) 0.5 % 14:39: 17:35 on Amanda ophthalmic 00 :53 05/13/21 at drops 0839, Until Amanda 05/13/21 at 1135, Routine, Intra-op eye block 2020-06- No PRN, NPI:183 syringe 11 07-14 Starting 1318 781 mL 14:39: 17:35 on Amanda 00 :53 05/13/21 at 0839, Until Amanda 05/13/21 at 1135, Intra-op cyclopent 2020-06- No .5mL 0.5 mL, NPI: 183 1%-tropic 07-14 Right Eye, 131 8781 1%-phenyl 13:00: 13:16 ONCE, 1 2.5%-ketor 00 :00 dose, On 0.5% Amanda (MYDRIATIC 05/13/21 at #5) 0700, ophthalmic Routine, solution DSU Pre-op syringe 0.5 mL lactated 2020-06- No 1000mL at 42 NPI:1 83 ringers IV 07-14 mL/hr, 741378 1 infusion 13:00: 13:16 1,000 mL, 1,000 mL 00 :00 IV Infusion, ONCE, 1 dose, On Amanda 05/13/21 at 0700, Routine, DSU Pre-op cyclopent 2020-06- No .5mL 0.5 mL, NPI: 183 1%-tropic 07-14 Right Eye, 131 8781 1%-phenyl 13:00: 13:16 ONCE, 1 2.5%-ketor 00 :00 dose, On 0.5% Amanda (MYDRIATIC 05/13/21 at #5) 0700, ophthalmic Routine, solution DSU Pre-op syringe 0.5 mL lactated 2020-06 1000mL at 42 NPI:1 83 ringers IV 2 12-09 mL/hr, 217613 1 infusion 13:00: 13:16 1,000 mL, 1,000 mL 00 :00 IV Infusion, ONCE, 1 dose, On Amanda 05/13/21 at 0700, Routine, DSU Pre-op lisinopriL 2020-06 Yes 20mg Take 20 mg N PI:183 20 mg 2 by mouth [id number] tablet 09:35: daily. 52 aspirin 81 2020-06 Yes Take by NPI :183 mg Cap 2-09 mouth. [id number] 09:35: 52 lisinopriL 2020-06 Yes 20mg Take 20 mg N PI:183 20 mg 2 by mouth [id number] tablet 09:35: daily. 52 aspirin 81 2020-06 Yes Take by NPI :183 mg Cap 2-09 mouth. [id number] 09:35: 52 Lisinopril- Lisinopril- 2018-0 Yes Hayder 1 tablet NPI:174 Hydrochloro Hydrochloro 7-16 Guardado [id number] thiazide thiazide 00:00: 00 GlipiZIDE GlipiZIDE 2017-0 Yes Hayder 1 tablet NPI:174 6-06 Guardado [id number] 00:00: 00 Jardiance Jardiance 2018-0 2018- No Hayder 1 tablet NPI:174 5-18 07-16 Guardado [id number] 00:00: 00:00 00 :00 Lisinopril- Lisinopril- Yes Hayder 1 tablet NPI:174 Hydrochloro Hydrochloro Guardado 6070282 thiazide thiazide Simvastatin Simvastatin Yes Hayder 1 tablet NPI:174 Guardado in the 3142038 evening Metformin Metformin Yes Hayder 1 tablet NPI:174 HCl HCl Guardado with a 9336728 meal Vital Signs Vital Name Observation Time Observation Value Comments Source HEIGHT 2020-04-16 12:31:00 167.6 cm WEIGHT 2020-04-16 12:31:00 115.44 kg HEIGHT 2020-04-14 16:40:00 167.6 cm WEIGHT 2020-04-14 16:40:00 90.719 kg HEIGHT 2020-03-10 15:50:00 167.6 cm WEIGHT 2020-03-10 15:50:00 90.719 kg HEIGHT 2020-01-09 00:00:00 167.6 cm WEIGHT 2020-01-09 00:00:00 90.719 kg HEIGHT 2019-11-05 00:00:00 167.6 cm WEIGHT 2019-11-05 00:00:00 113.853 kg Systolic blood pressure 2021-05-13 15:25:00 167 mm[Hg] Diastolic blood 2021-05-13 15:25:00 59 mm[Hg] NPI:1 [id number] pressure Heart rate 2021-05-13 15:25:00 58 /min NPI:1831 [id number] Respiratory rate 2021-05-13 15:25:00 13 /min Oxygen saturation in 2021-05-13 15:25:00 98 /min Arterial blood by Pulse oximetry Body temperature 2021-05-13 15:08:00 36.39 Rachel Body height 2021-05-11 20:25:00 169 cm NPI:1831 [id number] Body weight 2021-05-11 20:25:00 115.3 kg NPI:1831 [id number] BMI 2021-05-11 20:25:00 40.37 kg/m2 NPI:1831 332493 Systolic blood pressure 2021-05-13 13:05:00 185 mm[Hg] Diastolic blood 2021-05-13 13:05:00 80 mm[Hg] NPI:1 [id number] pressure Heart rate 2021-05-13 13:05:00 61 /min NPI:1831 [id number] Body temperature 2021-05-13 13:05:00 36.61 Rachel Respiratory rate 2021-05-13 13:05:00 18 /min Oxygen saturation in 2021-05-13 13:05:00 99 /min Arterial blood by Pulse oximetry Body height 2021-05-11 20:25:00 169 cm NPI:1831 [id number] Body weight 2021-05-11 20:25:00 115.3 kg NPI:1831 578558 BMI 2021-05-11 20:25:00 40.37 kg/m2 NPI:1831 195421 HEIGHT 2020-04-16 12:31:00 167.6 cm WEIGHT 2020-04-16 12:31:00 115.44 kg HEIGHT 2020-04-14 16:40:00 167.6 cm WEIGHT 2020-04-14 16:40:00 90.719 kg HEIGHT 2020-03-10 15:50:00 167.6 cm WEIGHT 2020-03-10 15:50:00 90.719 kg HEIGHT 2020-01-09 00:00:00 167.6 cm WEIGHT 2020-01-09 00:00:00 90.719 kg HEIGHT 2019-11-05 00:00:00 167.6 cm WEIGHT 2019-11-05 00:00:00 113.853 kg Procedures Procedure Date / Time Performing Clinician Source Performed PHACOEMULSIFICATION OF 2021-05-13 14:27:00 Addy Gordon NPI:1 [id number] CATARACT WITH INTRAOCULAR LENS Adebayo IMPLANT HB ECG ROUTINE & RHYTHM STRIP 2021-05-13 13:40:06 Octaviano Mckeon jhoana HB ECG ROUTINE & RHYTHM STRIP 2021-05-13 13:40:06 Octaviano Mckeon jhoana POCT GLUCOSE (AUTOMATED) 2021-05-13 13:18:00 Addy Gordon NPI :[id number] Adebayo POCT GLUCOSE (AUTOMATED) 2021-05-13 13:18:00 Addy Gordon NPI :[id number] Adebayo Encounters Start End Encounter Admission Attending Care Care Encounter Source Date/Time Date/Time Type Type Clinicians Facility Department ID 2021-07-27 Outpatient NIDHI CORDOVA LUCY [id number] NPI:183 10:12:17 ADDY [id number] 6891-10-06 Outpatient MADELIN TAMEZ Surgery [id number] [facility] 02:24:37 BOBY 2019-11-05 Inpatient [facility] Gastro [id number] [facility] 13:03:00 2021-05-13 2021-05-13 Outpatient NIDHI CORDOVA OPH [id number] NPI:183 06:57:00 09:35:00 ADDY [id number] 2021-05-13 2021-05-13 [facility] 1.2.840.114 [id number] NPI:183 06:57:00 09:35:00 Encounter Addy MUHAMMAD 350.1.13.10 [id number] Adebayo MCKINNEY 4.2.7.2.686 SURGICAL [id number] [place] 071 2021-05-13 2021-05-13 [facility] [id number] NPI:183 08:06:00 08:42:00 Addy MAURICIOCAROLYN 350.1.13.10 [id number] Adebayo MCKINNEY 4.2.7.2.686 SURGICAL [id number] [place] 020 2021-05-11 2021-05-11 Outpatient R [facility] [id number] NPI:183 15:00:00 15:00:00 Laure [id number] 2021-05-11 2021-05-11 [facility] [id number] NPI:183 15:00:00 15:00:00 ADDY [id number] 2021-05-11 2021-05-11 Laboratory Only, Adc Test [facility] 1.2.840. 114 [id number] NPI:183 14:18:45 14:33:45 Only Addy GordonCAROLYN 350.1.1 3.10 [id number] FAYE 4.2.7.2.686 CLYDE [id number] 2021-05-06 2021-05-06 Tax Services Professional Melody, Adc Lab Main [facility] 1.2.8 40.114 [id number] NPI:183 16:27:21 16:42:21 Visit Addy Gordon JB 350.1.1 3.10 [id number] FAYE 4.2.7.2.686 [facility] [id number] 2021-05-06 2021-05-06 [facility] [id number] NPI:183 16:15:00 16:15:00 ADDY [id number] 2020-04-14 2020-04-14 Outpatient [facility] [id number] [facility] 00:00:00 00:00:00 2020-04-14 2020-04-14 Outpatient [facility] [id number] [facility] 00:00:00 00:00:00 2020-03-10 2020-03-10 Outpatient [facility] [id number] [facility] 00:00:00 00:00:00 2020-02-05 2020-02-05 Outpatient [facility] [id number] SLE 00:00:00 00:00:00 2017-12-18 2017-12-18 [facility] [id number] NPI:174 14:00:00 14:00:[address] [facility] [address] [place] [address] 2017-10-23 2017-10-23 [facility] [id number] NPI:174 15:32:00 15:32:00 [facility] [address] [place] [address] 2017-10-20 2017-10-20 [facility] [id number] NPI:174 10:30:00 10:30:00 [facility] [address] [place] [address] 2017-10-02 2017-10-02 Out[facility] [id number] NPI:174 10:30:00 10:30:[address] [facility] [address] [place] [address] Results Test Description Test Time Test Comments Results Result Comments Source POCT GLUCOSE (AUTOMATED) 2021-05-13 13:21:11 Test Item Value Reference Range Interpretation Comme nts POCT GLU (test code = 7693928887) 212 mg/dL 70-110 H Lab Interpretation (test code = 75779-4) Abnormal NPI:[id number] GLUCOSE (AUTOMATED)2021-05-13 13:21:11 Test Item Value Reference Range Interpretation Comments POCT GLU (test code = 8549518762) 212 mg/dL 70-110 H Lab Interpretation (test code = Abnormal 85022-7) NPI:[id number], [id number] 15:20:00Reason for exam:->abnormal imaging [facility] : 1955 Sex: MFluoroscopic unit utilized for a procedure performed in the OR. No interpretation was requested. Refer to the operative report for findings. Refer to PACS for patient radiation dose information.POCT-GLUCOSE [id number] 13:12:00 Test Item Value Reference Range Interpretation Comments POC-GLUCOSE METER 96 mg/dL 70-110 : TESTED A T [facility] [address] ([place]) (test code = [place], 1538) [address]: Venipuncturist/Techni alyssa ID = [id number] for MARIEL ALVARO ZUNIGA SARS-COV2/RT-PCR ([facility])2020-04-14 19:15:00 Test Item Value Reference Range Interpretation Comments SARS-COV2/RT-PCR (test Negative Not Detected, Negative, code = 5587466) See external report for linked test SARS-COV-2 PERFORMING LAB [facility] LIZZETTE (test code = 6782372) Negative result for this test determines that SARS-CoV-2 RNA was not present in the specimen above the Limit of Detection (LOD). However, Negative results do not preclude SARS-CoV-2 infection and should not be used as the sole basis for treatment or patient management decisions. Negative results mustbe combined with clinical observations, patient history, and epidemiological information. A false negative result may occur if a specimen is improperly collected, transported or handled. A false negative result should be considered if patient's recent exposures or clinical presentation indicate that COVID-19 (SARS-CoV-2) is likely and diagnostic tests for other causes of illness are negative. Re-testing should be considered in cases of suspected false negatives.The limit of detection for this assay is 800 copies/mL.This SARS CoV-2 test is a real-time RT-PCR test intended for the qualitative detection of nucleic acid from SARS-CoV-2 in a nasopharyngeal swab specimen collected from individuals suspected of COVID-19 by their healthcare provider.This test has not been Food and Drug Administration (FDA) cleared or approved. This is a modified version of an approved Emergency Use Authorization (EUA) and is in the process of review by the FDA. Once authorized by the FDA, the issued EUA will be effective until the declaration that circumstances exist justifying the authorization of the emergency use of in vitro diagnostic tests for detection and/or diagnosis of COVID-19 is terminated under Section 564(b)(2) of the Act or the EUA is revoked under Section 564(g) of the Act.Fact Sheet for Healthcare Providers:https://www.[employer]/sites/default/files/product/documents/Fact_Shee a_QI_Nxzhydmaq_Mjfy_GRSZ-IwD-5.pdfFact Sheet for Healthcare Patients:https://www.[employer]/sites/default/files/product/ documents/Imgf_Lwtau_Hcdglfbu_Drxb_FKUJ-KiV-6.pdfPerforming Laboratory:[facility] [place] [address].[place], [place] [address]TBXP-HINZNZL METER 2019-11-07 11:55:00 Test Item Value Reference Range Interpretation Comments POC-GLUCOSE METER 109 mg/dL 70-110 : TESTED A T [facility] 6720 (BEAKER) (test code = [facility], 1538) [address]: Venipuncturist/Techni alyssa ID = [id number] for ELISA QUINN POCT-GLUCOSE [id number] 07:45:00 Test Item Value Reference Range Interpretation Comments POC-GLUCOSE METER 106 mg/dL 70-110 : TESTED A T [facility] 6720 (BEAKER) (test code = [facility], 1538) 21329: Venipuncturist/Techni alyssa ID = [id number] for ELISA QUINN BASIC METABOLIC [id number] 05:46:00 Test Item Value Reference Range Interpretation [...] S NOT APPLICABLE FOR DIALYSIS PATIEN TS. Venipuncturist ID - [id number] 05:45:00 Test Item Value Reference Range Interpretation Comments MAGNESIUM (BEAKER) (test code = 1.7 mg/dL 1.6-2.6 627) Venipuncturist ID - LAHEPATIC FUNCTION [id number] 05:45:00 Test Item Value Reference Range Interpretation [...] (test code = 10 U/L 6-55 347) Venipuncturist ID - LACBC W/PLT COUNT & AUTO [id number] 05:09:00 Test Item Value Reference Range Interpretation [...] PERCENT (BEAKER) (test code = 2801) POCT-GLUCOSE [id number] 20:52:00 Test Item Value Reference Range Interpretation Comments POC-GLUCOSE METER 113 mg/dL 70-110 H : TESTED A T [facility] 67[address] (BEAKER) (test code = [facility], 1538) [address]: Venipuncturist/Techni alyssa ID = [id number] for MARIE OLIVER POCT-GLUCOSE [id number] 16:32:00 Test Item Value Reference Range Interpretation Comments POC-GLUCOSE METER 124 mg/dL 70-110 H : TESTED A T [facility] 6720 (BEAKER) (test code = [facility], 1538) [address]: Venipuncturist/Techni alyssa ID = [id number] for ELISA QUINN FL, [id number] 13:07:00Reason for exam:->abnormal imagingFINAL REPORT A fluoroscopic unit was utilized for a procedure performed in the operating room. No interpretation was requested. Please refer to the operative report regarding findings. Please refer to PACS for patient radiation dose information. Signed: Kathrine Bullard Verified Date/Time: 11/06/2019 13:07:58 Reading Location: [facility] Radiology Reading Room -GLUCOSE [id number] 07:41:00 Test Item Value Reference Range Interpretation Comments POC-GLUCOSE METER 132 mg/dL 70-110 H : TESTED A T [facility] 67[address] (BEAKER) (test code = [facility], 153) [address]: Venipuncturist/Techni alyssa ID = [id number] for ELISA QUINN [id number] 06:34:00 Test Item Value Reference Range Interpretation Comments MAGNESIUM (BEAKER) (test code = 1.6 mg/dL 1.6-2.6 627) Venipuncturist ID - SOWMYA MBASIC METABOLIC [id number] 06:34:00 Test Item Value Reference Range Interpretation [...] S NOT APPLICABLE FOR DIALYSIS PATIEN TS. Venipuncturist ID - SOWMYA EPATIC FUNCTION [id number] 06:34:00 Test Item Value Reference Range Interpretation [...] (test code = 14 U/L 6-55 347) Venipuncturist ID - SOWMYA MCBC W/PLT COUNT & AUTO [id number] 06:29:00 Test Item Value Reference Range Interpretation [...] PERCENT (BEAKER) (test code = 2801) POCT-GLUCOSE [id number] 23:18:00 Test Item Value Reference Range Interpretation Comments POC-GLUCOSE METER 126 mg/dL 70-110 H : TESTED A T [facility] [address] (BEAKER) (test code = [place], 1538) [address]: Venipuncturist/Techni alyssa ID = [id number] for BRIAN LYON HEMOGLOBIN [id number] 20:09:00 Test Item Value Reference Range Interpretation Comments HEMOGLOBIN A1C (BEAKER) (test code = 8.3 % 4.3-6.1 H 368) SARS-COV2/RT-PCR ([facility])2019-11-05 19:00:00 Test Item Value Reference Range Interpretation Comments SARS-COV2/RT-PCR (test Not Detected Not Detected, Negative code = 7729015) SARS-COV-2 PERFORMING LAB [facility] (test code = 2133860) Negative results do not preclude SARS-CoV-2 infection [...] of the Act.Fact Sheet for Healthcare Pro viders:https://www.[employer]/Documents/Xpert%20Xpress%20SARS%20CoV-2/Fact%20Sh eets/3023802%64FIJQ-TKE-6%20HEALTHCARE%20PROVIDERS%20FACT%20SHEET.pdfFact Sheet for Healthcare Patients:https://www.[employer]/Documents/Xpert%20Xpress%20SARS%20CoV-2/Fact%20Sheets/3023801%20SARS-COV -2%20PATIENT%20FACT%20SHEET.pdfPerforming Laboratory:[facility], [place] [address]MAJB-FDYSCDM [id number] 16:49:00 Test Item Value Reference Range Interpretation Comments POC-GLUCOSE METER 230 mg/dL 70-110 H : TESTED A T [facility] 67[address] (BEAKER) (test code [facility], = 1538) [address]: Venipuncturist/Techni alyssa ID = [id number] for VANNA DIXON HEPATIC FUNCTION [id number] 15:37:00 Test Item Value Reference Range Interpretation [...] (test code = 16 U/L 6-55 347) Venipuncturist ID - [id number] 15:37:00 Test Item Value Reference Range Interpretation Comments MAGNESIUM (BEAKER) (test code = 1.7 mg/dL 1.6-2.6 627) Venipuncturist ID - BSBASIC METABOLIC [id number] 15:37:00 Test Item Value Reference Range Interpretation [...] S NOT APPLICABLE FOR DIALYSIS PATIEN TS. Venipuncturist ID - [id number] 15:27:00 Test Item Value Reference Range Interpretation [...] mechanical heart valves.CBC W/PLT COUNT & AUTO [id number] 15:14:00 Test Item Value Reference Range Interpretation [...] % 0-1 PERCENT (BEAKER) (test code = 5989)
[2021-10-10] MEDS ORDERED: MORPHINE 2 MG/ML SYR ONE (08:19)
[2021-10-10] MEDS ORDERED: NA CHLORIDE 0.9% 500 ML ONE (08:20)
[2021-10-10] MEDS ORDERED: ONDANSETRON 4 MG/2 ML VIAL ONE (08:20)
[2021-10-10 08:55] LABS: Absolute Lymphocytes (CBC) 1.1 K/uL (0.7-4.9); Hematocrit 35.5 % (39.6-49.0); Lymphocytes % 17.7 % (15.3-44.8); MPV 8.7 fL (7.6-11.3); RBC Red Blood Cell Count 3.99 M/uL (4.33-5.43)
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
[2021-10-10 09:06] LABS: Albumin 2.8 g/dL (3.4-5.0); Bilirubin Direct 0.1 mg/dL (0-0.2); Bilirubin Total 0.4 mg/dL (0.2-1.0); Potassium 4.4 mmol/L (3.5-5.1); Protein, Total 7.3 g/dL (6.4-8.2)
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
[2021-10-10 10:35] LABS: Urine Blood 2+ (Negative); Urine Glucose 3+ (Negative); Urine Protein 3+ (Negative)
[2021-10-10 10:59] VITALS: TEMP 97.8
[2021-10-10 11:02] VITALS: O2SAT 98
[2021-10-10 11:03] VITALS: BP 182/87
== END 2021-10-10 10:53 | disposition home or self-care (01) ==
LOC: ER 07:23
DX: S39.012A Strain of muscle, fascia and tendon of lower back, initial encounter (principal); V47.5XXA Car driver injured in collision with fixed or stationary object in traffic accident, initial encounter; E11.65 Type 2 diabetes mellitus with hyperglycemia; I10 Essential (primary) hypertension; N19 Unspecified kidney failure; E66.9 Obesity, unspecified; Z68.41 Body mass index [BMI] 40.0-44.9, adult
CPT/HCPCS: 96361; 85025; 80048; 36415; 86900; 86850; 82565; 86901; 80076; 81003; 83690; 70450; 71250; 72125; 96375; 96374; 99284; J2270; J7040; J2405

== ENCOUNTER 2021-12-17 11:06 | Emergency (ER) | payer BC ==
[2021-12-17 12:12] LABS: Absolute Lymphocytes (CBC) 0.6 K/uL (0.7-4.9); Hematocrit 32.4 % (39.6-49.0); Lymphocytes % 13.3 % (15.3-44.8); MCV 89.2 fL (80-100); MPV 7.4 fL (7.6-11.3); RBC Red Blood Cell Count 3.63 M/uL (4.33-5.43)
[2021-12-17] MEDS ORDERED: ONDANSETRON 4 MG/2 ML VIAL ONE (12:14)
[2021-12-17] MEDS ORDERED: NA CHLORIDE 0.9% 1,000 ML ONE (12:14)
[2021-12-17 12:17] LABS: Protime INR 1.1
[2021-12-17 12:33] LABS: Albumin 2.2 g/dL (3.4-5.0); Bilirubin Direct 0.3 mg/dL (0-0.2); Bilirubin Total 0.7 mg/dL (0.2-1.0); Magnesium 2.1 mg/dL (1.8-2.4); Potassium 4.2 mmol/L (3.5-5.1); Protein, Total 7.2 g/dL (6.4-8.2); Troponin High Sensitivity 13.3 pg/mL (<58.9)
--- NOTE | 2021-12-17 12:57 | RAD REPORT ---
EXAM DESCRIPTION: RAD - Chest Single View - 12/17/2021 12:34 pm CLINICAL HISTORY: Chest pain, spouse is COVID positive COMPARISON: Two view chest March 2020 TECHNIQUE: AP portable chest image was obtained 12/17/2021 12:34 pm . FINDINGS: Lung volumes are low. Interstitial markings are accentuated by shallow inspiration, portab le technique and body habitus. There is patchy airspace opacification in the mid right lung field asmtia picious for pneumonia. Heart size is accentuated by the shallow inspiration. No measurable pleural effusion and no pneumoth orax. No acute bony abnormality seen. No acute aortic finding. Aortic tortuosity is noted. IMPRESSION: Patchy mid right lung field opacification suspicious for pneumonia. Interstitial markings are prominent in each lower lung field. This is mostly due to shallow inspirati on portable artifact. Interstitial edema or infiltrate is also possible.
--- NOTE | 2021-12-17 13:18 | RAD REPORT ---
EXAM DESCRIPTION: CT - Abdomen Pelvis Wo Contrast - 12/17/2021 1:04 pm CLINICAL HISTORY: Abdominal pain /epigastric COMPARISON: 2020 TECHNIQUE: Computed axial tomography of the abdomen and pelvis was obtained. IV and oral contrast we re not requested. All CT scans are performed using dose optimization technique as appropriate and may include automated exposure control or mA/KV adjustment according to patient size. FINDINGS: The evaluation of solid organs, vessels and bowel is limited secondary to the lack of con trast administration. Mild to moderate bilateral patchy lung opacities. The liver, spleen, pancreas, and adrenals appear grossly normal. Bilateral perirenal stranding without significant change. No hydronephrosis. No mass is visualized. Cholecystectomy. No evidence of diverticulitis IMPRESSION: Mild to moderate bilateral patchy lung opacities may indicate pneumonia or pneumonitis
[2021-12-17 14:22] LABS: C-Reactive Protein 58.8 mg/L (<3.00); Ferritin 958.6 ng/mL (26-388)
--- NOTE | 2021-12-17 14:25 | EDPHYS ---
Physician Documentation [facility] Name: Sabra Rodriguez Jr Age: 65 yrs Sex: Male : 1955 Arrival Date: 12/17/2021 Time: 11:08 Bed 17 Private MD: ED Physician Jose Martin Frey HPI: 12/17 11:47 This 65 yrs old Male presents to ER via Ambulatory with complaints of pm1 Shortness Of Breath, Cough, Nausea. 11:47 The patient or guardian reports cough, with no sputum, flu symptoms, no appetite, Body pm1 aches. Onset: The symptoms/episode began/occurred 2 week(s) ago. Severity of symptoms: in the emergency department the symptoms are actually worse. Modifying factors: The symptoms are alleviated by nothing, the symptoms are aggravated by nothing. Associated signs and symptoms: Pertinent positives: fever, Pertinent negatives: chest pain, diarrhea, vomiting. The patient has not experienced similar symptoms in the past. The patient has not recently seen a physician. 65-year-old male presents to the ER with complaints of cough, shortness of breath, nausea and vomiting. Onset of symptoms approximately 2 weeks ago. On December 06 patient's tested positive for COVID. He has not been tested for COVID yet but it seems that he does have it. Patient negative for COVID-vaccine. Historical: - Allergies: 11:24 No Known Allergies; iw - PMHx: 11:23 Diabetes - NIDDM; Hypertension; iw 11:24 vision problems; iw - PSHx: 11:24 Cholecystectomy; Appendectomy; iw - Immunization history:: Client reports having NOT received the Covid vaccine. - Social history:: Smoking status: Patient denies any tobacco usage or history of. ROS: 11:47 Eyes: Negative for injury, pain, redness, and discharge, ENT: Negative for injury, pm1 pain, and discharge, Neck: Negative for injury, pain, and swelling, Cardiovascular: Negative for chest pain, palpitations, and edema. 11:47 Abdomen/GI: Negative for abdominal pain, nausea, vomiting, diarrhea, and constipation, Back: Negative for injury and pain, MS/Extremity: Negative for injury and deformity, Skin: Negative for injury, rash, and discoloration, Neuro: Negative for headache, weakness, numbness, tingling, and seizure. 11:47 Constitutional: Positive for body aches, fever, poor PO intake. 11:47 Respiratory: Positive for cough, shortness of breath. 11:47 All other systems are negative. Exam: 11:47 Constitutional: This is a well developed, well nourished patient who is awake, alert, pm1 and in no acute distress. Head/Face: Normocephalic, atraumatic. 11:47 Back: No spinal tenderness. No costovertebral tenderness. Full range of motion. Skin: Warm, dry with normal turgor. Normal color with no rashes, no lesions, and no evidence of cellulitis. MS/ Extremity: Pulses equal, no cyanosis. Neurovascular intact. Full, normal range of motion. 11:47 Cardiovascular: Exam negative for acute changes, Rate: normal, Rhythm: regular, Pulses: no pulse deficits are appreciated. 11:47 Respiratory: Exam negative for acute changes, respiratory distress, shortness of breath, Breath sounds: are clear throughout. 11:47 Abdomen/GI: Exam negative for acute changes, Inspection: abdomen appears normal, Palpation: abdomen is soft and non-tender, in all quadrants. 11:47 Neuro: Exam negative for acute changes, Orientation: is normal, Mentation: is normal, Motor: is normal, moves all fours. Vital Signs: 11:23 BP 138 / 75; Pulse 84; Resp 18; Temp 97.8; Pulse Ox 97% on R/A; Weight 108.86 kg; iw Height 5 ft. 5 in. (165.10 cm); 14:07 BP 132 / 78; Pulse 70; Resp 17; Pulse Ox 94% ; valladares 11:23 Body Mass Index 39.94 (108.86 kg, 165.10 cm) iw MDM: 11:29 Patient medically screened. pm1 13:26 Data reviewed: vital signs. Data interpreted: Pulse oximetry: on room air is 97 %. pm1 Interpretation: normal. 14:23 Counseling: I had a detailed discussion with the patient and/or guardian regarding: the pm1 historical points, exam findings, and any diagnostic results supporting the discharge/admit diagnosis, lab results, radiology results, the need for outpatient follow up. 15:39 ED course: Patient with normal room air saturation at 97% to 100% on room air. Patient pm1 does not require supplemental oxygen. Patient also near baseline kidney function. Therefore patient does not require hospitalization for his COVID patient improved with nausea and reported appetite. So we will discharge patient home with Zofran as given here in the ER. Will give patient IV fluids prior to discharge. Patient instructed on return precautions. 12/17 11:47 Order name: Basic Metabolic Panel; Complete Time: 12:34 pm1 12/17 11:47 Order name: CBC with Diff; Complete Time: 12:22 pm1 12/17 11:47 Order name: LFT's; Complete Time: 12:34 pm12/17 11:47 Order name: Magnesium; Complete Time: 12:34 pm12/17 11:47 Order name: NT PRO-BNP; Complete Time: 12:34 pm12/17 11:47 Order name: PT-INR; Complete Time: 12:22 pm12/17 11:47 Order name: Troponin HS; Complete Time: 12:34 pm1 12/17 11:47 Order name: COVID-19 SARS RT PCR (Document "Date of Onset" if Symptomatic); Complete pm1 Time: 14:18 12/17 11:47 Order name: Flu; Complete Time: 13:25 pm12/17 11:47 Order name: Lipase; Complete Time: 12:34 pm12/17 13:30 Order name: Blood Culture Adult (2) pm12/17 13:30 Order name: CRP; Complete Time: 14:42 pm12/17 13:30 Order name: Lactate; Complete Time: 14:42 pm12/17 13:30 Order name: Ferritin; Complete Time: 14:42 pm12/17 11:47 Order name: XRAY Chest (1 view); Complete Time: 13:25 pm12/17 11:47 Order name: EKG; Complete Time: 11:47 pm12/17 11:47 Order name: Cardiac monitoring; Complete Time: 12:12 pm12/17 11:47 Order name: IV Saline Lock; Complete Time: 12:12 pm12/17 11:47 Order name: Labs collected and sent; Complete Time: 12:12 pm12/17 11:47 Order name: O2 Per Protocol; Complete Time: 12:12 pm12/17 11:47 Order name: O2 Sat Monitoring; Complete Time: 12:12 pm12/17 12:37 Order name: CT Abd/Pelvis - Without Contrast; Complete Time: 13:25 pm1 EC:46 Rate is 72 beats/min. Rhythm is regular, Normal Sinus Rhythm. No Q waves. T waves are pm1 Normal. No ST changes noted. Clinical impression: Normal sinus rhythm, bifascicular block, abnormal EKG. Administered Medications: 12:11 Drug: Zofran (Ondansetron) 4 mg Route: IVP; Site: left antecubital; valladares 12:37 Follow up: Response: No adverse reaction valladares 12:12 Drug: NS 0.9% 1000 ml Route: IV; Rate: 1000 ml; Site: left antecubital; valladares 19:18 Follow up: IV Status: Completed infusion; IV Intake: 1000ml kd3 15:33 Drug: NS 0.9% 1000 ml Route: IV; Rate: 1000 ml; Site: left antecubital; valladares 19:18 Follow up: IV Status: Completed infusion kd3 19:18 Follow up: IV Intake: 1000ml kd3 15:33 Drug: Tussionex Pennkinetic ER (chlorpheniramine-hydrocodone) Suspension 5 ml Route: PO;valladares 15:34 Follow up: Response: No adverse reaction valladares 15:45 Not Given (Physician Discretion): NS 0.9% 1000 ml IV at 125 ml/hr continuous valladares Disposition Summary: 12/17/21 15:38 Discharge Ordered Location: Home(12/17/21 15:38) pm1 Problem: new(12/17/21 15:38) pm1 Symptoms: have improved(12/17/21 15:38) pm1 Condition: Stable(12/17/21 15:38) pm1 Diagnosis - Pneumonia due to SARS-associated coronavirus(12/17/21 15:38) pm1 Followup: pm1 - With: Emergency Department - When: As needed - Reason: Worsening of condition Followup: pm1 - With: Private Physician - When: 2 - 3 days - Reason: Recheck today's complaints, Continuance of care, Re-evaluation by your physician Discharge Instructions: - Discharge Summary Sheet pm1 - COVID-19 pm1 - COVID-19 Frequently Asked Questions pm1 - 10 Things You Can Do to Manage Your COVID-19 Symptoms at Home - [facility] pm1 - COVID-19: Quarantine vs. Isolation - [facility] pm1 Forms: - Medication Reconciliation Form pm1 - Thank You Letter pm1 - Antibiotic Education pm1 - Prescription Opioid Use pm1 Prescriptions: - ondansetron 4 mg Oral tablet,disintegrating - place 1 tablet by TRANSLINGUAL route every 8 hours As needed; 12 tablet; pm1 Refills: 0, Product Selection Permitted - Zithromax Z-Je 250 mg Oral Tablet - take 1 tablet by ORAL route as directed for 5 days Day 1 - take two (2) tablets pm1 one time. Day 2, 3, 4 , 5 take one (1) tablet once daily.; 6 tablet; Refills: 0, Product Selection Permitted - Guaifenesin AC 10-100 mg/5 mL Oral Liquid - take 10 milliliters by ORAL route every 4 hours As needed; 240 milliliter; pm1 Refills: 0, Product Selection Permitted Addendum: 12/19/2021 13:52 Co-signature as Attending Physician, Jose Martin Frey MD I agree with the assessment and c valladares plan of care. Signatures: Dispatcher [employer] EDJose Martin Porter MD MD cha Williams, Irene, RN TAMIR iw Ervin Meyer NP [employer] pm1 Mini-Leigh Redman RN RN ha Doucette, Kyli RN kd3 Corrections: (The following items were deleted from the chart) 12/17 14:31 14:25 Acute kidney injury pm1 pm1 14:41 14:25 Inpatient Admission pm1 pm1 14:41 14:25 Adolfo Whitten pm1 pm1 14:41 14:25 Telemetry/MedSurg (Inpatient) pm1 pm1 14:41 14:25 Stable pm1 pm1 14:41 14:25 new pm1 pm1 14:41 14:25 have improved pm1 pm1 14:41 14:25 Standard pm1 pm1 14:41 14:25 pm1 pm1 14:41 14:25 Dehydration pm1 pm1 14:41 14:25 Pneumonia due to SARS-associated coronavirus pm1 pm1 20:40 14:23 Counseling: I had a detailed discussion with the patient and/or guardian pm1 regarding: the historical points, exam findings, and any diagnostic results supporting the discharge/admit diagnosis, lab results, radiology results, the need for further work-up and treatment in the hospital, pm1
--- NOTE | 2021-12-17 14:25 | ER ---
Nurse's Notes [facility] Name: Sabra Rodriguez Jr Age: 65 yrs Sex: Male : 1955 Arrival Date: 12/17/2021 Time: 11:08 Bed 17 Private MD: Diagnosis: Pneumonia due to SARS-associated coronavirus Presentation: 12/17 11:22 Chief complaint: Patient states: SOB nausea, not eating well, chills , no fever , iw +cough, X 1 week , tested positive for COVID on December 06, pt also having vomiting and diarrhea. Coronavirus screen: Client presents with at least one sign or symptom that may indicate coronavirus-19. Ebola Screen: Patient negative for fever greater than or equal to 101.5 degrees Fahrenheit, and additional compatible Ebola Virus Disease symptoms Patient denies exposure to infectious person. Patient denies travel to an Ebola-affected area in the 21 days before illness onset. No symptoms or risks identified at this time. Initial Sepsis Screen: Does the patient meet any 2 criteria? No. Patient's initial sepsis screen is negative. Does the patient have a suspected source of infection? No. Patient's initial sepsis screen is negative. Risk Assessment: Do you want to hurt yourself or someone else? Patient reports no desire to harm self or others. Onset of symptoms was December 10, 2021. 11:22 Method Of Arrival: Ambulatory iw 11:22 Acuity: KRISTINA 3 iw Triage Assessment: 12:11 General: Appears in no apparent distress. Behavior is calm, cooperative. Respiratory: valladares Onset: The symptoms/episode began/occurred gradually, the patient has moderate shortness of breath. Historical: - Allergies: 11:24 No Known Allergies; iw - PMHx: 11:23 Diabetes - NIDDM; Hypertension; iw 11:24 vision problems; iw - PSHx: 11:24 Cholecystectomy; Appendectomy; iw - Immunization history:: Client reports having NOT received the Covid vaccine. - Social history:: Smoking status: Patient denies any tobacco usage or history of. Screenin:00 Abuse screen: Denies threats or abuse. Denies injuries from another. Nutritional valladares screening: No deficits noted. Tuberculosis screening: No symptoms or risk factors identified. Fall Risk None identified. Assessment: 12:00 Pain: Complains of pain in chest. Cardiovascular: Reports chest pain, nausea, shortness valladares of breath. Cardiovascular: Rhythm is regular. Respiratory: Airway is patent Respiratory effort is even, unlabored, Breath sounds are diminished bilaterally. GI: Reports nausea. Vital Signs: 11:23 BP 138 / 75; Pulse 84; Resp 18; Temp 97.8; Pulse Ox 97% on R/A; Weight 108.86 kg; iw Height 5 ft. 5 in. (165.10 cm); 14:07 BP 132 / 78; Pulse 70; Resp 17; Pulse Ox 94% ; valladares 11:23 Body Mass Index 39.94 (108.86 kg, 165.10 cm) iw ED Course: 11:08 Patient arrived in ED. jj6 11:23 Triage completed. iw 11:25 Arm band placed on. iw 11:28 Ervin Meyer NP is PHCP. pm1 11:28 Jose Martin Frey MD is Attending Physician. pm1 11:32 Leigh Tucker, TAMIR is Primary Nurse. valladares 12:00 Patient has correct armband on for positive identification. Bed in low position. valladares 12:01 No provider procedures requiring assistance completed. Inserted saline lock: 22 gauge valladares in left antecubital area, using aseptic technique. 12:35 XRAY Chest (1 view) In Process Unspecified. EDMS 13:05 CT Abd/Pelvis - Without Contrast In Process Unspecified. EDMS 14:25 Adolfo Whitten MD is Hospitalizing Provider. pm1 Administered Medications: 12:11 Drug: Zofran (Ondansetron) 4 mg Route: IVP; Site: left antecubital; valladares 12:37 Follow up: Response: No adverse reaction valladares 12:12 Drug: NS 0.9% 1000 ml Route: IV; Rate: 1000 ml; Site: left antecubital; valladares 19:18 Follow up: IV Status: Completed infusion; IV Intake: 1000ml kd3 15:33 Drug: NS 0.9% 1000 ml Route: IV; Rate: 1000 ml; Site: left antecubital; valladares 19:18 Follow up: IV Status: Completed infusion kd3 19:18 Follow up: IV Intake: 1000ml kd3 15:33 Drug: Tussionex Pennkinetic ER (chlorpheniramine-hydrocodone) Suspension 5 ml Route: PO;valladares 15:34 Follow up: Response: No adverse reaction valladares 15:45 Not Given (Physician Discretion): NS 0.9% 1000 ml IV at 125 ml/hr continuous valladares Medication: 12:00 VIS not applicable for this client. valladares Intake: 19:18 IV: 1000ml; Total: 1000ml. kd3 19:18 IV: 1000ml; Total: 2000ml. kd3 Outcome: 14:25 Decision to Hospitalize by Provider. pm1 15:38 Discharge ordered by MD. pm1 19:18 Patient left the ED. kd3 Signatures: Dispatcher [employer] EDAlicia Cool RN RN iw Ervin Meyer NP FLOAT OPERATOR pm1 Kim Andrade jj6 Stefany Caruso RN RN kd3 Mini-Leigh Redman RN RN valladares Corrections: (The following items were deleted from the chart) 11:24 11:22 Chief complaint: Patient states: SOB nausea, not eating well, chills , no fever , iw +cough, X 1 week , tested positive for COVID on December 06 iw 12:11 12:01 Inserted saline lock: 22 gauge in right antecubital area, using aseptic valladares technique. valladares 15:37 15:34 NS 0.9% 1000 ml IV at 125 ml/hr in left antecubital valladares valladares
[2021-12-17] MEDS ORDERED: HYDROCODONE/CHLORPHEN 5 ML/OSYR ONE (15:20)
[2021-12-17] MEDS ORDERED: NA CHLORIDE 0.9% 2,000 ML ONE (15:20)
[2021-12-17 19:40] VITALS: TEMP 97.8
[2021-12-17 19:42] VITALS: BP 132/78; O2SAT 94
--- NOTE | 2021-12-19 14:43 | EKG ---
Test Date: 2021-12-17 Test Time: 13:54:25 Political Science Chair: SOPHIE MEASUREMENT RESULTS: Intervals: Rate: 72 HI: 194 QRSD: 166 QT: 428 QTc: 468 Zenia: P: 21 HI: 194 QRS: -61 T: 20 INTERPRETIVE STATEMENTS: Normal sinus rhythm Right bundle branch block Left anterior fascicular block Bifascicular block Septal infarct, age undetermined Abnormal ECG Compared to ECG 03/19/2020 14:27:51 No significant changes Electronically Signed On 12-19-21 14:41:17 CDT by David Olson
== END 2021-12-17 19:18 | disposition home or self-care (01) ==
LOC: ER 11:06
DX: U07.1 COVID-19 (principal); J12.82 Pneumonia due to coronavirus disease 2019; E11.9 Type 2 diabetes mellitus without complications; I10 Essential (primary) hypertension
CPT/HCPCS: 96361; 93005; 87040 ×2; 85025; 80048; 36415; 83735; 87205; 85610; 80076; 83605; 84484; 82728; 83690; 83880; 86140; 87804 ×2; 74176; 71045; 96374; 99283; U0003; J7030 ×2; J2405

== ENCOUNTER 2022-07-11 16:35 | Emergency (ER) | payer BC ==
--- OUTSIDE RECORDS SUMMARY | 2022-07-11 17:04 | XMS REPORT | Continuity of Care Document ---
:1955 Author Organization [facility] t Address [address] [place] [address] Care Team Providers Name Role Phone Pcp, Patient Does Not Have A Primary Care Physician +[id number] ADDY GORDON Attending Clinician Unavailable BOBY TAMEZ Attending Clinician Unavailable ANGELA JARQUIN Attending Clinician Unavailable Addy Gordon MD Attending Clinician Pob, [facility] Lab Main Attending Clinician Unavailable Doctor Unassigned, [place] Attending Clinician Unavailable Only, Adc Test Attending Clinician Unavailable ADDY GORDON Admitting Clinician Unavailable BOBY TAMEZ Admitting Clinician Unavailable ANGELA JARQUIN Admitting Clinician Unavailable Addy Gordon MD Admitting Clinician Payers Payer Name Policy Type Policy Number Effective Date Expiration Date S ource [place] [id number] 2018 OF [facility] 00:00:00 BCBS OS POS/PPO/EPO [id number] 2018 00:00:00 CDC REVIEW [id number] 2019 00:00:00 ZZCDCREVIEW [id number] 2018 2018 00:00:00 00:00:00 Problems Condition Condition Condition Status Onset Resolution Last Treating Co mments Source Name Details Category Date Date Treatment Clinician Date Acute Acute Disease Active [facility] injury injury 00:00: Medical 00 [place] Essential Essential Disease Active [facility] hypertensi hypertensi 6- Ananya kes on on 00:00: Medical 00 [place] Non-insuli Non-insuli Disease Active [facility] n 6 [facility] dependent dependent 00:00: [facility] glenda type 2 type 2 Center diabetes diabetes mellitus mellitus Bile leak, Bile leak, Disease Active [facility] postoperat postoperat 11-05 Ananya kes deep deep 00:00: Medical 00 [place] BMI BMI Problem Active Common 40.0-44.9, 40.0-44.9, Sp john adult adult - [facility] Nocturia Nocturia Problem Active Commo n Spirit - [facility] Type 2 Type 2 Problem Active Common diabetes diabetes Spirit mellitus mellitus - [facility] with with hyperglyce hyperglyce [facility] HTN, goal HTN, goal Problem Active Com mon below below Spirit 130/80 130/80 [facility] Type 2 Type 2 Problem Active Common diabetes diabetes Spirit mellitus mellitus - [facility] with with diabetic diabetic [facility] nephropath nephropath Me dical y y Center Mixed Mixed Problem Active Common hyperlipid hyperlipid Sp john emia emia [facility] Proteinuri Proteinuri Problem Active C ommon a, a, Spirit unspecifie unspecifie - [facility] d type d type [facility] Allergies, Adverse Reactions, Alerts Allergy Allergy Status Severity Reaction(s) Onset Inactive Treating Comm ents Source Name Type Date Date Clinician NO KNOWN Allergy Active [facility] Drug Active Univers ALLERGIE Class [facility] Social History Social Habit Start Date Stop Date Quantity Comments Source History SDOH [facility] r Drinks History SDOH [facility] Alcohol Binge Medical [facility] Alcohol Comment Medical C enter Exposure to 2022-04-08 2022-04-18 Not sure University of SARS-CoV-2 00:00:00 13:02:00 [facility] (event) Branch Alcohol intake 2020-04-20 2020-04-[address] [facility] [address] Xiomy es 00:00:00 00:00:00 non-drinker of Medical Ce nter alcohol (finding) Tobacco use and 2020-02-05 2020-02-[address] Ananya prado exposure 00:00:00 00:00:00 Medical Center History SDOH 2020-02-05 2020-02-[address] [facility] Alcohol Frequency 00:00:00 00:00:00 [facility] Center Sex Assigned At [birth year] EVANGELISTA Cevallos 00:00:00 00:00:00 Medical Center Smoking Status Start Date Stop Date Source Unknown if ever smoked [facility] Never smoked tobacco [facility] Medications Ordered Filled Start Stop Current Ordering Indication Dosage Frequency Signature Comments Components Source Medication Medication Date Date Medication? Clinician (SIG) Name Name neomycin-po 2021-06- No PRN, Unive rs lymyxin-dex 06-21 Starting ity of amethasone 15:26: 15:[facility] 00 :44 04/21/22 Medic al 3.5 at 09, Branch mg/g-10,000 Until [facility] unit/g-0.1 04/21/22 % at 0933, ophthalmic Routine, ointment Intra-op gentamicin 2021-06- No PRN, Univer s injection 06-21 Starting ity o f 15:26: 15:33 on Amanda [place] 00 :44 04/21/22 Medical at 0926, Branch Until Amanda 04/21/22 at 0933, GARRETT, Intra-op dexamethaso 2021-06- No PRN, Unive rs ne 06-21 Starting ity of (DECADRON 15:26: 15:33 on Amanda [place] PHOSPHATE) 00 :44 04/21/22 Medic al injection at 0926, Branch Until Amanda 04/21/22 at 0933, Routine, Intra-op eye block 2021-06- No PRN, Univers syringe 11 06-21 Starting ity of mL 15:21: 15:33 on Amanda [place] 00 :44 04/21/22 Medical at 0921, Branch Until Amanda 04/21/22 at 0933, Intra-op chondroitin 2021-06- No PRN, Unive rs sulf-sod 06-21 Starting ity of hyaluronate 15:20: 15:33 on Amanda Shay as (DUOVISC 00 :44 04/21/22 Medical VISCO at 0920, Branch ELASTIC) Until Amanda intraocular 04/21/22 injection at 0933, Routine, Intra-op tetracaine 2021-06- No PRN, Univer s (PONTOCAINE 06-21 Starting ity of ) 0.5 % 15:11: 15:33 on Amanda [place] ophthalmic 00 :44 04/21/22 Medic al drops at 0911, Branch Until Amanda 04/21/22 at 0933, Routine, Intra-op ceFAZolin 2021-06- No PRN, Univers (ANCEF) 06-21 Starting ity of injection 15:06: 15:33 on Amanda [place] 00 :44 04/21/22 Medical at 0906, Branch Until Amanda 04/21/22 at 0933, GARRETT, Intra-op water for 2021-06- No PRN, Univers irrigation 06-21 Starting ity of irrigation 14:55: 15:33 [facility] solution [facility] :44 04/21/22 Medical at 0855, Branch Until Amanda 04/21/22 at 0933, Routine, Intra-op NaCl 0.9% 2021-06- No PRN, Univers (NS) 06-21 Starting ity of injection 14:54: 15:33 on [facility] [place] 00 :44 04/21/22 Medical at 0854, Branch Until Amanda 04/21/22 at 0933, Routine, Intra-op EPINEPHrine 2021-06- No PRN, Unive rs (PF) 06-21 Starting ity of 1:1,000 (1 14:53: 15:33 on [facility] [place] mg/mL) 00 :44 04/21/22 Medical (ADRENALIN at 0853, [facility] h (PF)) Until Amanda injection 04/21/22 at 0933, Routine, Intra-op balanced 2021-06- No PRN, Univers salt soln 06-21 Starting ity o f no.2 irrig. 14:51: 15:33 on Amanda Shay as (BSS) 00 :44 04/21/22 Medical ophthalmic at 0851, Branc h solution Until Amanda 04/21/22 at 0933, Routine, Intra-op cyclopent 2021-06- No .5mL 0.5 mL, Univ ers 1%-tropic 06-21 Left Eye, ity of 1%-phenyl 14:15: 14:34 ONCE, 1 [place] 2.5%-ketor 00 :00 dose, On Medic al 0.5% [place] Branch (MYDRIATIC 04/21/22 #5) at 0815, ophthalmic Routine, solution DSU Pre-op syringe 0.5 mL lactated 2021-06- No 1000mL at 42 Unive rs ringers IV 06-21 11-17 mL/hr, ity of infusion 14:15: 14:34 1,000 mL, Shay as 1,000 mL 00 :00 IV Medical Infusion, Branch ONCE, 1 dose, On Mon04/21/22 at 0815, Routine, DSU Pre-op cyclopent 2021-06- No .5mL 0.5 mL, Univ ers 1%-tropic 06-21 Left Eye, ity of 1%-phenyl 14:15: 14:34 ONCE, 1 [place] 2.5%-ketor 00 :00 dose, On Medic al 0.5% [place] Branch (MYDRIATIC 04/21/22 #5) at 0815, ophthalmic Routine, solution DSU Pre-op syringe 0.5 mL lactated 2021-06- No 1000mL at 42 Unive rs ringers IV 06-21 11-17 mL/hr, ity of infusion 14:15: 14:34 1,000 mL, Shay as 1,000 mL 00 :00 IV Medical Infusion, Branch ONCE, 1 dose, On Amanda 04/21/22 at 0815, Routine, DSU Pre-op aspirin 81 2021-06 Yes Take by Univ ers mg Cap -17 mouth. ity of 10:18: [place] [address] Medical Branch gemfibroziL 2021-06 Yes 1{tbl} Take 1 Un smooth 600 mg -17 tablet by ity of tablet 10:18: mouth in [place] 48 the Medical morning Branch and 1 tablet in the evening. lisinopriL- 2021-06 Yes 1{tbl} Take 1 Un smooth hydrochloro 1-17 tablet by ity of thiazide 10:18: mouth in [place] 20-12.5 mg 48 the Medical per tablet morning. [facility] metformin 2021-06 Yes 1{tbl} Take 1 Univ ers ER 500 mg 1-17 tablet by ity o f 24 hr 10:18: mouth in [place] tablet 48 the Medical morning. Branch multivitami 2021-06 Yes 1{capsu Take 1 U nivers n capsule 1-17 le} capsule by ity of 10:18: mouth in [place] 48 the Medical morning. Branch aspirin 81 2021-06 Yes Take by Univ ers mg Cap 1-17 mouth. ity of 10:18: [place] 48 Medical Branch gemfibroziL 2021-06 Yes 1{tbl} Take 1 Un smooth 600 mg 1-17 tablet by ity of tablet 10:18: mouth in [place] 48 the Medical morning Branch and 1 tablet in the evening. lisinopriL- 2021-06 Yes 1{tbl} Take 1 Un smooth hydrochloro 1-17 tablet by ity of thiazide 10:18: mouth in [place] 20-12.5 mg 48 the Medical per tablet morning. [facility] metformin 2021-06 Yes 1{tbl} Take 1 Univ ers ER 500 mg 1-17 tablet by ity o f 24 hr 10:18: mouth in [place] tablet 48 the Medical morning. Branch multivitami 2021-06 Yes 1{capsu Take 1 U nivers n capsule 1-17 le} capsule by ity of 10:18: mouth in [place] 48 the Medical morning. Branch bisoproloL- 2021-06- No 1{tbl} Take 1 U nivers hydrochloro 1-17 11-14 tablet by it y of thiazide 10:18: 00:00 [place] 5-6.25 mg 48 :00 the Medical per tablet morning. [facility] bisoproloL- 2021-06- No 1{tbl} Take 1 U nivers hydrochloro 1-17 11-14 tablet by it y of thiazide 10:18: 00:00 mouth [place] 5-6.25 mg 48 :00 the Medical per tablet morning. [facility] gemfibroziL 2021-06 Yes 1{tbl} Take 1 Un smooth 600 mg 1-14 tablet by ity of tablet 13:00: mouth in [place] [address] the Medical morning Branch and 1 tablet in the evening. lisinopriL- 2021-06 Yes 1{tbl} Take 1 Un smooth hydrochloro 1-14 tablet by ity of thiazide 13:00: mouth in [place] 20-12.5 mg 22 the Medical per tablet morning. [facility] metformin 2021-06 Yes 1{tbl} Take 1 Univ ers ER 500 mg 1-14 tablet by ity o f 24 hr 13:00: mouth in [place] tablet 22 the Medical morning. Branch multivitami 2021-06 Yes 1{capsu Take 1 U nivers n capsule 1-14 le} capsule by ity of 13:00: mouth in [place] [address] the Medical morning. Branch gemfibroziL 2021-06 Yes 1{tbl} Take 1 Un smooth 600 mg 1-14 tablet by ity of tablet 13:00: mouth in [place] [address] the Medical morning Branch and 1 tablet in the evening. lisinopriL- 2021-06 Yes 1{tbl} Take 1 Un smooth hydrochloro 1-14 tablet by ity of thiazide 13:00: mouth in [place] 20-12.5 mg 22 the Medical per tablet morning. [facility] metformin 2021-06 Yes 1{tbl} Take 1 Univ ers ER 500 mg 1-14 tablet by ity o f 24 hr 13:00: mouth in [place] tablet 22 the Medical morning. Branch multivitami 2021-06 Yes 1{capsu Take 1 U nivers n capsule 1-14 le} capsule by ity of 13:00: mouth in [place] [address] the Medical morning. Branch gemfibroziL 2021-06 Yes 1{tbl} Take 1 Un smooth 600 mg 1-14 tablet by ity of tablet 13:00: mouth in [place] [address] the Medical morning Branch and 1 tablet in the evening. lisinopriL- 2021-06 Yes 1{tbl} Take 1 Un smooth hydrochloro 1-14 tablet by ity of thiazide 13:00: mouth in [place] 20-12.5 mg 22 the Medical per tablet morning. [facility] metformin 2021-06 Yes 1{tbl} Take 1 Univ ers ER 500 mg 1-14 tablet by ity o f 24 hr 13:00: mouth in [place] tablet 22 the Medical morning. [facility] multivitami 2021-06 Yes 1{capsu Take 1 U nivers n capsule 1-14 le} capsule by ity of 13:00: mouth in [place] 22 the Medical morning. Branch lisinopriL 2021-06 No 20mg Take 20 mg Univers 20 mg -14 -14 by mouth ity of tablet 12:59: 00:00 daily. [place] 48 :00 [facility] lisinopriL 2021-06 No 20mg Take 20 mg Univers 20 mg -14 11-14 by mouth ity of tablet 12:59: 00:00 daily. [place] 48 :00 [facility] aspirin 81 2021-06 Yes Take by Univ ers mg Cap 1-14 mouth. ity of 12:56: [address] aspirin 81 2021-06 Yes Take by Univ ers mg Cap 1-14 mouth. ity of 12:56: [address] aspirin 81 2021-06 Yes Take by [facility] ers mg Cap 1-14 mouth. ity of 12:56: [address] lactated 2020-06 Yes 1000mL at 42 Univer s ringers IV 2-09 mL/hr, ity of infusion 15:30: 1,000 mL, [place] 1[place]000 mL 00 IV Medical Infusion, Branch CONTINUOUS , Starting on Amanda 05/13/21 at 0930, Until Discontinu ed, Routine, PACU lactated 2020-06 No 1000mL at 42 Unive rs ringers IV 2-09 12-09 mL/hr, ity of infusion 15:30: 17:35 1,000 mL, Shay as 1,000 mL 00 :53 IV Medical Infusion, Branch CONTINUOUS , Starting on Amanda 05/13/21 at 0930, Until Amanda 12 at 1135, Routine, PACU ondansetron 2020-06 Yes 4mg 4 mg, Slow Univers (ZOFRAN 2-09 IV Push, ity of (PF)) 15:25: PRN, 1 [place] injection 4 29 dose, Medical mg Starting Branch on Amanda 05/13/21 at 0925, Until Discontinu ed, Routine, Nausea and Vomiting (N/V), PACU ondansetron 2020-06- No 4mg 4 mg, Slow Univers (ZOFRAN 07-14 IV Push, ity of (PF)) 15:25: 17:35 PRN, 1 [place] injection 4 29 :53 dose, Medical mg Starting Branch on Amanda 05/13/21 at 0925, Until Amanda 05/13/21 at 1135, Routine, Nausea and Vomiting (N/V), PACU NaCl 0.9% 2020-06 Yes PRN, Univers (NS) 07-14 Starting ity of injection 15:01: on Amanda [place] 05/13/21 at [facility] 0901, Branch Until Discontinu ed, Routine, Intra-op NaCl 0.9% 2020-06- No PRN, Univers (NS) 07-14 Starting ity of injection 15:01: 17:35 on Amanda [place] 00 :53 05/13/21 at [facility] 0901, Branch Until Amanda 05/13/21 at 1135, Routine, Intra-op neomycin-po 2020-06 Yes PRN, Univer s lymyxin-dex 07-14 Starting ity of amethasone 15:00: on Amanda [place] (MAXITROL) 00 05/13/21 at Med ical 3.5 0900, Branch mg/g-10,000 Until unit/g-0.1 Discontinu % ed, ophthalmic Routine, ointment Intra-op neomycin-po 2020-06- No PRN, Unive rs lymyxin-dex 07-14 Starting ity of amethasone 15:00: 17:35 on [facility] (MAXITROL) 00 :53 05/13/21 at Med ical 3.5 0900, Branch mg/g-10,000 Until Amanda unit/g-0.1 05/13/21 at % 1135, ophthalmic Routine, ointment Intra-op gentamicin 2020-06 Yes PRN, Univers injection 07-14 Starting ity of 14:59: on Amanda [place] 05/13/21 at [facility] 0859, Branch Until Discontinu ed, GARRETT, Intra-op gentamicin 2020-06- No PRN, Univer s injection 07-14 Starting ity o f 14:59: 17:35 on Amanda [place] 00 :53 05/13/21 at Medical 0859, Branch Until Amanda 05/13/21 at 1135, GARRETT, Intra-op dexamethaso 2020-06 Yes PRN, Univer s ne 07-14 Starting ity of (DECADRON 14:58: on Amanda [place] PHOSPHATE) 00 05/13/21 at Med ical injection 0858, Branch Until Discontinu ed, Routine, Intra-op ceFAZolin 2020-06 Yes PRN, Univers (ANCEF) 07-14 Starting ity of injection 14:58: on Amanda [place] 00 05/13/21 at Medical 0858, Branch Until Discontinu ed, GARRETT, Intra-op dexamethaso 2020-06- No PRN, Unive rs ne 07-14 Starting ity of (DECADRON 14:58: 17:35 on Amanda [place] PHOSPHATE) 00 :53 05/13/21 at Med ical injection 0858, Branch Until Amanda 05/13/21 at 1135, Routine, Intra-op ceFAZolin 2020-06- No PRN, Univers (ANCEF) 07-14 Starting ity of injection 14:58: 17:35 on Amanda [place] 00 :53 05/13/21 at Medical 0858, Branch Until Amanda 05/13/21 at 1135, GARRETT, Intra-op EPINEPHrine 2020-06 Yes PRN, Univer s (PF) 07-14 Starting ity of 1:1,000 (1 14:45: on Amanda [place] mg/mL) 00 05/13/21 at [facility] (ADRENALIN 0845, Branch (PF)) Until injection Discontinu ed, Routine, Intra-op DUOVISC 2020-06 Yes PRN, Univers (DUOVISC 07-14 Starting ity of VISCO 14:45: on Amanda [place] ELASTIC) 3 00 05/13/21 at [facility] ical %-4 %(0.5 0845, Branch mL) 1 % Until (0.55 mL) Discontinu intraocular ed, injection Routine, Intra-op balanced 2020-06 Yes PRN, Univers salt soln 07-14 Starting ity of no.2 irrig. 14:45: on [place] (BSS) 00 05/13/21 at Medical ophthalmic 0845, Branch solution Until Discontinu ed, Routine, Intra-op EPINEPHrine 2020-06- No PRN, Unive rs (PF) 07-14 Starting ity of 1:1,000 (1 14:45: 17:35 on [place] mg/mL) 00 :53 05/13/21 at Medical (ADRENALIN 0845, Branch (PF)) Until Amanda injection 05/13/21 at 1135, Routine, Intra-op DUOVISC 2020-06- No PRN, Univers (DUOVISC 07-14 Starting ity of VISCO 14:45: 17:35 on Amanda [place] ELASTIC) 3 00 :53 05/13/21 at Med ical %-4 %(0.5 0845, Branch mL) 1 % Until Amanda (0.55 mL) 05/13/21 at intraocular 1135, injection Routine, Intra-op balanced 2020-06- No PRN, Univers salt soln 07-14 Starting ity o f no.2 irrig. 14:45: 17:35 on [place] (BSS) 00 :53 05/13/21 at Medical ophthalmic 0845, Branch solution Until Amanda 05/13/21 at 1135, Routine, Intra-op water for 2020-06 Yes PRN, Univers irrigation 07-14 Starting ity o f irrigation 14:43: on Amanda [place] solution 00 05/13/21 at Medic al 0843, Branch Until Discontinu ed, Routine, Intra-op water for 2020-06- No PRN, Univers irrigation 07-14 Starting ity of irrigation 14:43: 17:35 on [place] solution 00 :53 05/13/21 at Medic al 0843, Branch Until Amanda 05/13/21 at 1135, Routine, Intra-op tetracaine 2020-06 Yes PRN, Univers (PONTOCAINE 07-14 Starting ity of ) 0.5 % 14:39: on Amanda [place] ophthalmic 00 05/13/21 at Med ical drops 0839, Branch Until Discontinu ed, Routine, Intra-op eye block 2020-06 Yes PRN, Univers syringe 11 07-14 Starting ity o f mL 14:39: on Amanda [place] 00 05/13/21 at Medical 0839, Branch Until Discontinu ed, Intra-op tetracaine 2020-06- No PRN, Univer s (PONTOCAINE 07-14 Starting ity of ) 0.5 % 14:39: 17:35 on Amanda [place] ophthalmic 00 :53 05/13/21 at [facility] ical drops 0839, Branch Until [place] 05/13/21 at 1135, Routine, Intra-op eye block 2020-06- No PRN, Univers syringe 11 07-14 Starting ity of mL 14:39: 17:35 on Amanda [place] 00 :53 05/13/21 at Medical 0839, Branch Until Amanda 05/13/21 at 1135, Intra-op cyclopent 2020-06- No .5mL 0.5 mL, Univ ers 1%-tropic 07-14 Right Eye, ity of 1%-phenyl 13:00: 13:16 ONCE, 1 [place] 2.5%-ketor 00 :00 dose, On Medic al 0.5% [place] Branch (MYDRIATIC 05/13/21 at #5) 0700, ophthalmic Routine, solution DSU Pre-op syringe 0.5 mL lactated 2020-06- No 1000mL at 42 Unive rs ringers IV 07-14 mL/hr, ity of infusion 13:00: 13:16 1,000 mL, [place] 1,000 mL 00 :00 IV Medical Infusion, Branch ONCE, 1 dose, On Amanda 05/13/21 at 0700, Routine, DSU Pre-op cyclopent 2020-06- No .5mL 0.5 mL, Univ ers 1%-tropic 07-14 Right Eye, ity of 1%-phenyl 13:00: 13:16 ONCE, 1 [place] 2.5%-ketor 00 :00 dose, On Medic al 0.5% [place] Branch (MYDRIATIC 05/13/21 at #5) 0700, ophthalmic Routine, solution DSU Pre-op syringe 0.5 mL lactated 2020-06- No 1000mL at 42 Unive rs ringers IV 2-09 12-09 mL/hr, ity of infusion 13:00: 13:16 1,000 mL, [place]ay [place] 1,000 mL 00 :00 IV Medical Infusion, Branch ONCE, 1 dose, On Amanda 05/13/21 at 0700, Routine, DSU Pre-op lisinopriL 2020-06 Yes 20mg Take 20 mg U nivers 20 mg 2-09 by mouth ity of tablet 09:35: daily. [address] aspirin 81 2020-06 Yes Take by Uni vers mg Cap 2-09 mouth. ity of 09:35: [address] lisinopriL 2020-06 Yes 20mg Take 20 mg U nivers 20 mg 2-09 by mouth ity of tablet 09:35: daily. [address] aspirin 81 2020-06 Yes Take by Univ ers mg Cap 2-09 mouth. ity of 09:35: [address] multivitami 2019-06 Yes 1{capsu QD Take [address] n capsule 1-12 le} capsule by [place] s 19:58: mouth Medical 40 daily. [place] aspirin 81 2019-06 Yes 81mg QD Take [address] MG EC 1-12 by mouth [facility] tablet 19:58: daily. Medical 40 [place] Missing or 2019-06 Yes QD daily BP [facility] Non-Formula 1-12 PIll . Cata ry 19:58: Medical Medication [address] [place] [address] Lisinopril- Lisinopril- 2017- Yes [place] 1 tablet Common Hydrochloro Hydrochloro 7-16 [facility] thiazide thiazide 00:00: - [facility] 00 [facility] GlipiZIDE GlipiZIDE 2017- Yes [place] 1 tablet Common 6-06 [facility] 00:00: - [facility] 00 [facility] Jardiance Jardiance 2017- 2018- No [place] 1 tablet Common 5-18 07-16 [facility] 00:00: 00:00 - [facility] 00 :00 [facility] Lisinopril- Lisinopril- Yes [place] 1 tablet Common Hydrochloro Hydrochloro [facility] thiazide thiazide - [facility] Simvastatin Simvastatin Yes [place] 1 tablet Common [facility] in the Spirit evening - [facility] Metformin Metformin Yes [place] 1 tablet Common HCl HCl [facility] with a Spirit meal - [facility] Vital Signs Vital Name Observation Time Observation Value Comments Source HEIGHT 2020-04-16 12:31:00 167.6 cm WEIGHT 2020-04-16 12:31:00 115.44 kg HEIGHT 2020-04-14 16:40:00 167.6 cm WEIGHT 2020-04-14 16:40:00 90.719 kg HEIGHT 2020-03-10 15:50:00 167.6 cm WEIGHT 2020-03-10 15:50:00 90.719 kg HEIGHT 2020-01-09 00:00:00 167.6 cm WEIGHT 2020-01-09 00:00:00 90.719 kg HEIGHT 2019-11-05 00:00:00 167.6 cm WEIGHT 2019-11-05 00:00:00 113.853 kg Heart rate 2022-04-21 15:57:00 71 /min [facility] Respiratory rate 2022-04-21 15:57:00 18 /[facility] Oxygen saturation in 2022-04-21 15:57:00 100 /min University of Arterial blood by [facility] Pulse oximetry Branch Systolic blood 2022-04-21 15:54:00 178 mm[Hg] Univer sity of pressure [facility] Diastolic blood 2022-04-21 15:54:00 77 mm[Hg] Unive rsity of pressure [facility] Body temperature 2022-04-21 15:39:00 36.56 Rachel Univ ersity [facility] [place] [facility] Body height 2022-04-21 14:29:00 169 cm [facility]i ty [facility] [place] [facility] Body weight 2022-04-21 14:29:00 115.3 kg [facility]i ty [facility] [place] [facility] BMI 2022-04-21 14:29:00 40.37 kg/m2 Universi ty [place] [facility] Systolic blood 2022-04-21 15:48:00 182 mm[Hg] Univer sity of pressure [facility] Diastolic blood 2022-04-21 15:48:00 82 mm[Hg] Unive rsity of pressure [facility] Heart rate 2022-04-21 15:48:00 74 /min Universi ty [place] [facility] Respiratory rate 2022-04-21 15:48:00 16 /[facility] in 2022-04-21 15:48:00 100 /min University of Arterial blood by [facility] glenda Pulse oximetry Branch Body temperature 2022-04-21 15:39:00 36.56 Rachel Univ ersity [facility] [place] [facility] Body height 2022-04-21 14:29:00 169 cm [facility]i ty [facility] [place] [facility] Body weight 2022-04-21 14:29:00 115.3 kg [facility]i [facility] [place] [facility] BMI 2022-04-21 14:29:00 40.37 kg/m2 [facility] [place] [facility] Systolic blood 2021-05-13 15:25:00 167 mm[Hg] Univer sity of pressure [place] [facility] Diastolic blood 2021-05-13 15:25:00 59 mm[Hg] Unive rsity of pressure [place] [facility] Heart rate 2021-05-13 15:25:00 58 /min [facility]i [facility] [place] [facility] Respiratory rate 2021-05-13 15:25:00 13 /min Univ ersity [facility] [place] [facility] Oxygen saturation in 2021-05-13 15:25:00 98 /min University of Arterial blood by [facility] Pulse oximetry Branch Body temperature 2021-05-13 15:08:00 36.39 Rachel Univ [facility] [place] [facility] Body height 2021-05-11 20:25:00 169 cm [facility] [place] [facility] Body weight 2021-05-11 20:25:00 115.3 kg [facility] [place] [facility] BMI 2021-05-11 20:25:00 40.37 kg/m2 [facility] [place] [facility] Systolic blood 2021-05-13 13:05:00 185 mm[Hg] Univer sity of pressure [place] [facility] Diastolic blood 2021-05-13 13:05:00 80 mm[Hg] Unive rsity of pressure [place] [facility] Heart rate 2021-05-13 13:05:00 61 /min [facility] [place] [facility] Body temperature 2021-05-13 13:05:00 36.61 Rachel [facility] [place] [facility] Respiratory rate 2021-05-13 13:05:00 18 /min Univ ersity [facility] [place] [facility] Oxygen saturation in 2021-05-13 13:05:00 99 /min University of Arterial blood by [facility] glenda Pulse oximetry Branch Body height 2021-05-11 20:25:00 169 cm [facility] Body weight 2021-05-11 20:25:00 115.3 kg [facility] BMI 2021-05-11 20:25:00 40.37 kg/m2 [facility] HEIGHT 2020-04-16 12:31:00 167.6 cm WEIGHT 2020-04-16 12:31:00 115.44 kg HEIGHT 2020-04-14 16:40:00 167.6 cm WEIGHT 2020-04-14 16:40:00 90.719 kg HEIGHT 2020-03-10 15:50:00 167.6 cm WEIGHT 2020-03-10 15:50:00 90.719 kg HEIGHT 2020-01-09 00:00:00 167.6 cm WEIGHT 2020-01-09 00:00:00 90.719 kg HEIGHT 2019-11-05 00:00:00 167.6 cm WEIGHT 2019-11-05 00:00:00 113.853 kg Procedures Procedure Date / Time Performing Source Performed Clinician PHACOEMULSIFICATION OF 2022-04-21 Evan [facility] CATARACT WITH INTRAOCULAR 15:00:00 Adebayo Squires l Deniz LENS IMPLANT POCT GL[facility]AUTOMATED[facility] POCT GLUCOSE (AUTOMATED) 2022-04-21 [facility] 14:29:00 [facility] COMP. METABOLIC PANEL (66298) 2022-04-19 Addy Gordon [facility] 21:37:00 [facility] CBC WITH DIFF 2022-04-19 Evan [facility] 21:37:00 [facility] ASSIGNMENT OF BENEFITS 2022-04-19 Doctor Unassigned, [facility] 21:27:04 [place] [facility] PHACOEMULSIFICATION OF 2021-05-13 Evan [facility] CATARACT WITH INTRAOCULAR 14:27:00 Adebayo [facility] LENS IMPLANT HB ECG ROUTINE & RHYTHM STRIP 2021-05-13 [facility] 13:40:06 [facility] HB ECG ROUTINE & RHYTHM STRIP 2021-05-13 Mike [facility] 13:40:06 [facility] POCT GLUCOSE (AUTOMATED) 2021-05-13 Addy Gordon [facility] 13:18:00 [facility] POCT GLUCOSE (AUTOMATED) 2021-05-13 Evan, [facility] 13:18:00 [facility] Plan of Care Planned Activity Planned Date Details Comments Source Future Scheduled 2022-06-[address] [facility] 00:00:00 (12+) [code = Medical Center DEPRESSION SCREENING (12+)] Future Scheduled 2022-02-03 INFLUENZA VACCINE (#1) [facility] 00:00[facility]00 [code = INFLUENZA Medical Ce nter VACCINE (#1)] Future Scheduled 2021-04-[address] [facility] Test 00:00:00 Counseling and Medical Cente r Screening (12+) [code = Tobacco Cessation Counseling and Screening (12+)] Future Scheduled 2020-10-[address] [facility] Test 00:00:00 0-64 YRS (2 - PCV) Medical C enter [code = PNEUMOCOCCAL VACCINE 0-64 YRS (2 - PCV)] Future Scheduled 2020-05-[address] [facility] 00:00:00 measurement (procedure) [facility] [code = 48359172] Future Scheduled 2007-12-31 SHINGLES VACCINES ([address] [facility] 00:00:00 2) [code = SHINGLES Medical Center VACCINES (1 of 2)] Future Scheduled 1992 Lipid panel (procedure) [facility] 00:00:00 [code = 14005608] Medical Ce nter Future Scheduled 1976 DTAP/TDAP/TD VACCINES [facility] 00:00:00 (1 - Tdap) [code = Medical C enter DTAP/TDAP/TD VACCINES (1 - Tdap)] Future Scheduled 1975-12-31 HEPATITIS C SCREENING [facility] 00:00:00 [code = HEPATITIS C Medical Center SCREENING] Future Scheduled 1967-12-31 DIABETIC EYE EXAM [code [facility] 00:00:00 = DIABETIC EYE EXAM] Medical Center Future Scheduled 1967-12-[address] [facility] 00:[facility]:00 examination Medical Center (regime/therapy) [code = 670322957] Future Scheduled 1967-12-31 Urine screening for [facility] 00:00:00 protein (procedure) [facility] [code = 590978496] Future Scheduled 1958-07-02 COVID-19 VACCINE (#1) [facility] 00:00:00 [code = COVID-[address] VACCINE (#1)] Future Scheduled 1957 CT Colonography (combo) [facility] Test 00:00:00 [code = CT Colonography [facility] Center (combo)] Future Scheduled 1955 Screening for malignant [facility] Test 00:00:00 neoplasm of colon Medical Ce nter (procedure) [code = 717800828] Future Scheduled 1957 Screening for malignant [facility] Test 00:00:00 neoplasm of colon Medical Ce nter (procedure) [code = 552193292] Future Scheduled 1957 Screening for malignant [facility] Test 00:00:00 neoplasm of colon Medical Ce nter (procedure) [code = 952120338] Future Scheduled 1957 Screening for malignant [facility] Test 00:00:00 neoplasm of colon Medical Ce nter (procedure) [code = 031768993] Future Scheduled 1955 Sigmoidoscopy [code = [facility] 00:00:00 Sigmoidoscopy] Medical Deysi taylor Encounters Start End Encounter Admission Attending Care Care Encounter Source Date/Time Date/Time Type Type Clinicians Facility Department ID 2021-07-27 Outpatient Brandon GORDON AKSARAH LUCY [id number] Univers 10:12:17 ADDY mclaughlin [facility] 2021-03-10 Outpatient DORCAS TAMEZ Surgery [id number] [facility] 02:24:37 BOBY 2019-11-05 Inpatient ANGELA BAUTISTA [facility] Gastro [id number] SLE 13:03:00 2022-04-21 2022-04-21 Outpatient Brandon GORDON AKSARAH OPH [id number] Univers 08:07:00 10:08:00 ADDY mclaughlin [facility] 2022-04-21 2022-04-21 [facility] NIDHI Gordon 1.2.840.114 [id number] Univers 08:07:00 10:08:00 Encounter Addy MU[place]AD 350.1.13.10 Cheryl [place] [id number] [facility] [address] 2022-04-21 2022-04-21 Surgery [facility] 1.2.840.114 [id number] Univers 09:10:00 09:48:00 Addy [place] 350.1.13.10 i ty of Adebayo [place] [id number] [facility] [address] 2022-04-19 2022-04-19 Elevator Operator Melody, Adc Lab Main [facility] 1.2.8 40.114 [id number] Univers 15:30:00 15:45:00 Visit Addy Gordon 350.1.1 3.10 ity [place] [id number] Or dical [address] 2022-04-19 2022-04-19 [facility] [id number] Univers 15:30:00 15:30:00 ADDY mclaughlin [facility] 2022-04-19 2022-04-19 Orders Doctor IKER 1.2.840.114 [id number] Univers 00:00:00 00:00:00 Only Unassigned, DO 350.1.13.10 ity of [place] [facility] 4.2.7.2.686 Shay as [id number] [address] 2021-05-13 2021-05-13 Outpatient R [facility] OPH [id number] Univers 06:57:00 09:35:00 ADDY mclaughlin of [facility] 2021-05-13 2021-05-13 [facility] 1.2.840.114 [id number] Univers 06:57:00 09:35:00 Encounter Addy [place] 350.1.13.10 ity of Adeb[place] 4[place] [id number] [address] 2021-05-13 2021-05-13 Surgery [facility] 1.2.840.114 [id number] Univers 08:06:00 08:42:00 Addy [place] 350.1.13.10 i ty of Adeb[place] 4.[place].2.[place] [id number] [facility] 0[address] Branch 2021-05-11 2021-05-11 Outpatient Brandon GORDON [facility] [id number] Univers 15:00:00 15:00:00 ADDY mclaughlin [facility] 2021-05-11 2021-05-11 Laboratory Only, Adc Test [facility] 1.2.840. 114 [id number] Univers 14:18:45 14:33:45 Only Addy Gordon 350.1.1 3.10 ity max [facility] 4.2.7.2.686 [place] [id number] [facility] [address] 2021-05-06 2021-05-06 Elevator Operator Melody, Des Lab Main [facility] 1.2.8 40.114 [id number] Univers 16:27:21 16:42:21 Visit Addy Gordon 350.1.1 3.10 ity [facility] 4.2.7.2.686 [facility] s PROFESSIO [phone] Or dical [facility] [address] [facility] 2021-05-06 2021-05-06 Outpatient Brandon GORDON [facility] [id number] Univers 16:15:00 16:15:00 ADDY mclaughlin [facility] 2020-04-14 2020-04-14 Outpatient EL [facility] [id number] [facility] 00:00:00 00:00:00 2020-04-14 2020-04-14 Outpatient EL [facility] [id number] [facility] 00:00:00 00:00:00 2020-03-10 2020-03-10 Outpatient EL [facility] [id number] [facility] 00:00:00 00:00:00 2020-02-05 2020-02-05 Outpatient EL [facility] [id number] [facility] 00:00:00 00:00:00 2017-12-18 2017-12-18 [facility] [id number] Common 14:00:00 14:00:00 t [employer] [facility] it [facility] 2017-10-23 2017-10-23 [facility]patient [facility] 14 [id number] Common 15:32:00 15:32:[address] [facility] 2017-10-20 2017-10-20 Outpatient [place] [id number] Common 10:30:00 10:30:[address] [facility] 2017-10-02 2017-10-02 Outpatient [place] 13 [id number] Common 10:30:00 10:30:[address] [facility] Results Test Description Test Time Test Comments Results Result Comments Source POCT GLUCOSE (AUTOMATED) 2022-04-21 14:33:10 Test Item Value Reference Range Interpretation Comme nts POCT GLU (test code = 8175449545) 244 mg/dL 70-110 H Lab Interpretation (test code = 26883-8) Abnormal [facility] GLUCOSE (AUTOMATED)2022-04-21 14:33:10 Test Item Value Reference Range Interpretation Comments POCT GLU (test code = 3092427774) 244 mg/dL 70-110 H Lab Interpretation (test code = Abnormal 39618-8) [facility]. METABOLIC PANEL (81084)2022-04-19 22:28:30 Test Item Value Reference Range Interpretation Comments NA (test code = 138 mmol/L 135-145 3399452492) K (test code = 4.8 mmol/L 3.5-5.0 0315110043) CL (test code = 108 mmol/L 98-108 8517215484) CO2 TOTAL (test code = 22 mmol/L 23-31 L 8886352824) AGAP (test code = 2-16 1699406209) BUN (test code = 27 mg/dL 7-23 H 0034822964) GLUCOSE (test code = 319 mg/dL 70-110 H 8684540997) CREATININE (test code = 1.74 mg/dL 0.60-1.25 H 4134156310) TOTAL BILI (test code = 0.5 mg/dL 0.1-1.4 9920219586) CALCIUM (test code = 8.4 mg/dL 8.6-10.6 L 5196594263) T PROTEIN (test code = 6.5 g/dL 6.3-8.2 5776831090) ALBUMIN (test code = 3.5 g/dL 3.5-5.0 9839372896) ALK PHOS (test code = 100 U/L 34-122 0116983542) ALTv (test code = 20 U/L 5-50 1742-6) AST(SGOT) (test code = 20 U/L 13-40 6748534852) eGFR (test code = mL/min/1.73m2 3557544944) DARREN (test code = DARREN) Association of Glomerular Filtration Rate (GFR) and Staging of Kidney Disease* + --+ --+ ------+| GFR (mL/min/1.73 m2) ?| With Kidney Damage ?| ?Without Kidney Damage+ --------+ --------+ +| ?>90 ?| ?Stage one ?| ? Normal ?+ ---+ ---+ -------+| ?60-89 ?| ?Stage two ?| ? Decreased GFR ? + --+ --+ ------+| ?30-59 ?| ?Stage three ?| ? Stage three ? + --+ --+ ------+| ?15-29 ?| ?Stage four ? | ? Stage four ?+ ---+ ---+ -------+| ?<15 (or dialysis) ? ?| ?Stage five ? | ? Stage five ?+ ---+ ---+ -------+ *Each stage assumes the associated GFR level has been in effect for at least three months. ?Stages 1 to 5, with or without kidney disease, indicate chronic kidney disease. Notes: Determination of stages one and two (with eGFR >59mL/min/1.73 m2) requires estimation of kidney damage for at least three months as defined by structural or functional abnormalities of the kidney, manifested by either:Pathological abnormalities or Markers of kidney damage (including abnormalities in the composition of the blood or urine or abnormalities in imaging tests). Lab Interpretation Abnormal (test code = 53323-1) [facility] WITH [id number] 21:42:01 Test Item Value Reference Range Interpretation Comments WBC (test code = See_Comment [Automated 6690-2) message] The sy stem which generated this result transmitted reference range : 4.20 - 10.70 10*3/?L. The reference range was not used to interpret this result as normal/abnormal . RBC (test code = See_Comment L [Automated 789-8) message] The sy stem which generated this result transmitted reference range : 4.26 - 5.52 10*6/?L. The reference range was not used to interpret this result as normal/abnormal . HGB (test code = 12.4 g/dL 12.2-16.4 718-7) HCT (test code = 34.6 % 38.4-49.3 L 4544-3) MCV (test code = 88.0 fL 81.7-95.6 787-2) MCH (test code = 31.6 pg 26.1-32.7 785-6) MCHC (test code = 35.8 g/dL 31.2-35.0 H 786-4) RDW-SD (test code = 42.3 fL 38.5-51.6 03089-1) RDW-CV (test code = 13.1 % 12.1-15.4 788-0) PLT (test code = See_Comment [Automated 777-3) message] The sy stem which generated this result transmitted reference range : 150 - 328 10*3/ ?L. The reference r ramiro was not used to interpret this result as normal/abnormal . MPV (test code = 10.8 fL 9.8-13.0 27391-3) NRBC/100 WBC (test See_Comment [Automat ed code = 5475314186) message] The system which generated this result transmitted reference range : 0.0 - 10.0 /100 WBCs. The refer ence range was not u sed to interpret th is result as normal/abnormal . NRBC x10^3 (test code See_Comment [Auto mated = 9293108335) message] The s ystem which generated this result transmitted reference range : 10*3/?L. The reference range was not used to interpret this result as normal/abnormal . GRAN MAT (NEUT) % 60.9 % (test code = 770-8) IMM GRAN % (test code 0.80 % = 9611437682) LYMPH % (test code = 28.1 % 736-9) MONO % (test code = 6.9 % 5905-5) EOS % (test code = 2.5 % 713-8) BASO % (test code = 0.8 % 706-2) GRAN MAT x10^3(ANC) 3.64 10*3/uL 1.99-6.95 (test code = 8954012352) IMM GRAN x10^3 (test 0.05 10*3/uL 0.00-0.06 code = 1279169354) LYMPH x10^3 (test code 1.68 10*3/uL 1.09-3.23 = 731-0) MONO x10^3 (test code 0.41 10*3/uL 0.36-1.02 = 742-7) EOS x10^3 (test code = 0.15 10*3/uL 0.06-0.53 711-2) BASO x10^3 (test code 0.05 10*3/uL 0.01-0.09 = 704-7) Lab Interpretation Abnormal (test code = 61096-2) [facility] GLUCOSE (AUTOMATED)2021-05-13 13:21:11 Test Item Value Reference Range Interpretation Comments POCT GLU (test code = 5707035366) 212 mg/dL 70-110 H Lab Interpretation (test code = Abnormal 71689-1) [facility] GLUCOSE (AUTOMATED)2021-05-13 13:21:11 Test Item Value Reference Range Interpretation Comments POCT GLU (test code = 4602111411) 212 mg/dL 70-110 H Lab Interpretation (test code = Abnormal 62925-0) [facility] [id number] 15:20:00Reason for exam:- >abnormal imaging [facility] : 1955 Sex: MFluoroscopic unit utilized for a procedure performed in the OR. No interpretation was requested. Refer tothe operative report for findings. Refer to PACS for patient radiation dose information.POCT-GLUCOSE [id number] 13:12:00 Test Item Value Reference Range Interpretation Comments POC-GLUCOSE METER 96 mg/dL 70-110 : TESTED A T [facility] 6720 ([place]) (test code = [place], 1538) 93658: Child Care Centre Director/Techni alyssa ID = [id number] for ALVARO REEDER SARS-COV2/RT-PCR ([facility])2020-04-14 19:15:00 Test Item Value Reference Range Interpretation Comments SARS-COV2/RT-PCR (test Negative Not Detected, Negative, code = 9850506) See external report for linked test SARS-COV-[address] [facility] LIZZETTE (test code = 1875316) Negative result for this test determines that SARS-CoV-2 RNA was not present in the specimen above the Limit of Detection (LOD). However, Negative results do not preclude SARS-CoV-2 infection and should not be used as the sole basis for treatment or patient management decisions. Negative results must be [...] justifying the authorization of the emergency use ofin vitro diagnostic tests for detection and/or diagnosis of COVID-19 is terminated under Section 564(b)(2) of the Act or the EUA is revoked under Section 564(g) of the Act.Fact Sheet for Healthcare Prov iders:https://www.[employer]/sites/default/files/product/documents/Fact_Sheet_HC _Apklgvyrf_Nkae_LVGZ-RoS-4.pdfFact Sheet for Healthcare Patients:https://www.[employer]/sites/default/files/product/docume nts/Mskm_Wgmka_Fwfexbyd_Phjf_QAZJ-PfA-3.pdfPerforming Laboratory:[facility], [place] [address]ZPTY-GJHNQTC METER 2019-11-07 11:55:00 Test Item Value Reference Range Interpretation Comments POC-GLUCOSE METER 109 mg/dL 70-110 : TESTED A T [facility] 6720 (BEAKER) (test code = [facility] Brandon [facility], 1538) 74347: Child Care Centre Director/Techni alyssa ID = [id number] for ELISA QUINN POCT-GLUCOSE [id number] 07:45:00 Test Item Value Reference Range Interpretation Comments POC-GLUCOSE METER 106 mg/dL 70-110 : TESTED A T [facility] 6720 (BEAKER) (test code = [facility] Taylor [facility], 1538) 88766: Child Care Centre Director/Techni alyssa ID = [id number] for ELISA QUINN BASIC METABOLIC [id number] 05:46:00 Test Item Value Reference Range Interpretation [...] S NOT APPLICABLE FOR DIALYSIS PATIEN TS. Child Care Centre Director ID - [id number] 05:45:00 Test Item Value Reference Range Interpretation Comments MAGNESIUM (BEAKER) (test code = 1.7 mg/dL 1.6-2.6 627) Child Care Centre Director ID - LAHEPATIC FUNCTION [id number] 05:45:00 Test Item Value Reference Range Interpretation [...] (test code = 10 U/L 6-55 347) Child Care Centre Director ID - LACBC W/PLT COUNT & AUTO [id number] 05:09:00 Test Item Value Reference Range Interpretation [...] PERCENT (BEAKER) (test code = 2801) POCT-GLUCOSE [id number] 20:52:00 Test Item Value Reference Range Interpretation Comments POC-GLUCOSE METER 113 mg/dL 70-110 H : TESTED A T [facility] 6720 (BEAKER) (test code = [facility], 1538) 93405: Child Care Centre Director/Techni alyssa ID = [id number] for MARIE OLIVER POCT-GLUCOSE [id number] 16:32:00 Test Item Value Reference Range Interpretation Comments POC-GLUCOSE METER 124 mg/dL 70-110 H : TESTED A T [facility] 6720 (BEAKER) (test code = [facility], 1538) 52143: Child Care Centre Director/Techni alyssa ID = [id number] for ELISA QUINN [place], [id number] 13:07:00Reason for exam:->abnormal imagingFINAL REPORT A fluoroscopic unit was utilized for a procedure performed in the operating room. No interpretation was requested. Please refer to the operative report regarding findings. Please refer to PACS for patient radiation dose information. Signed: Kathrine Bullard Verified Date/Time: 11/06/2019 13:07:58 Reading Location: [facility] Radiology Reading Room -GLUCOSE [id number] 07:41:00 Test Item Value Reference Range Interpretation Comments POC-GLUCOSE METER 132 mg/dL 70-110 H : [facility] (BEAKER) (test code = MARY Taylor [place], 1538) 90670: Child Care Centre Director/Techni alyssa ID = [id number] for ELISA QUINN [id number] 06:34:00 Test Item Value Reference Range Interpretation Comments MAGNESIUM (BEAKER) (test code = 1.6 mg/dL 1.6-2.6 627) Child Care Centre Director ID - SOWMYA MBASIC METABOLIC [id number] 06:34:00 Test Item Value Reference Range Interpretation [...] S NOT APPLICABLE FOR DIALYSIS PATIEN TS. Child Care Centre Director ID - SOWMYA MHEPATIC FUNCTION [id number] 06:34:00 Test Item Value Reference Range Interpretation [...] (test code = 14 U/L 6-55 347) Child Care Centre Director ID - SOWMYA MCBC W/PLT COUNT & AUTO [id number] 06:29:00 Test Item Value Reference Range Interpretation [...] PERCENT (BEAKER) (test code = 2801) POCT-GLUCOSE [id number] 23:18:00 Test Item Value Reference Range Interpretation Comments POC-GLUCOSE METER 126 mg/dL 70-110 H : TESTED A T [facility] 6720 (BEAKER) (test code = GEORGEJUSTINE [place], 1538) 00151: Child Care Centre Director/Techni alyssa ID = [id number] for BRIAN LYON HEMOGLOBIN [id number] 20:09:00 Test Item Value Reference Range Interpretation Comments HEMOGLOBIN A1C (BEAKER) (test code = 8.3 % 4.3-6.1 H 368) SARS-COV2/RT-PCR ([facility])2019-11-05 19:00:00 Test Item Value Reference Range Interpretation Comments SARS-COV2/RT-PCR (test Not Detected Not Detected, Negative code = 3557820) SARS-COV-2 [facility] (test code = 2932422) Negative results do not preclude SARS-CoV-2 infection [...] of the Act.Fact Sheet for Healthcare Pro viders:https://www.GSOUND/Documents/Xpert%20Xpress%20SARS%20CoV-2/Fact%20Sh eets/302-3802%80UWNC-HMK-0%20HEALTHCARE%20PROVIDERS%20FACT%20SHEET.pdfFact Sheet for Healthcare Patients:https://www.ASP64/Documents/Xpert%20Xpress%20SARS%20CoV-2/Fact%20Sheets/302-3801%20SARS-COV -2%20PATIENT%20FACT%20SHEET.pdfPerforming Laboratory:[facility], [place] [address]FGIC-ZQETMNY [id number] 16:49:00 Test Item Value Reference Range Interpretation Comments POC-GLUCOSE METER 230 mg/dL 70-110 H : [facility] 67[facility] (BEAKER) (test code [facility], = 1538) 91671: Child Care Centre Director/Techni alyssa ID = [id number] for VANNA DIXON [id number] 15:37:00 Test Item Value Reference Range Interpretation Comments MAGNESIUM (BEAKER) (test code = 1.7 mg/dL 1.6-2.6 627) Child Care Centre Director ID - BSBASIC METABOLIC [id number] 15:37:00 Test Item Value Reference Range Interpretation [...] S NOT APPLICABLE FOR DIALYSIS PATIEN TS. Child Care Centre Director ID - BSHEPATIC FUNCTION [id number] 15:37:00 Test Item Value Reference Range Interpretation [...] (test code = 16 U/L 6-55 347) Child Care Centre Director ID - [id number] 15:27:00 Test Item Value Reference Range Interpretation [...] is 2.5-3.5 for patients wiht mechanical heart valves.CBC W/PLT COUNT & AUTO [id number] 15:14:00 Test Item Value Reference Range Interpretation [...] % 0-1 PERCENT (BEAKER) (test code = 2801)"
[2022-07-11 17:25] LABS: Hematocrit 34.4 % (39.6-49.0); MCV 90.2 fL (80-100); RBC Red Blood Cell Count 3.82 M/uL (4.33-5.43)
[2022-07-11 17:28] LABS: Protime INR 0.95
[2022-07-11 17:37] LABS: ALT/SGPT 28 U/L (16-61); Albumin 2.6 g/dL (3.4-5.0); Alkaline Phosphatase 101 U/L (45-117); BUN Blood Urea Nitrogen 40 mg/dL (7-18); Bicarbonate 20 mmol/L (21-32); Bilirubin Total 0.3 mg/dL (0.2-1.0); Glomerular Filtration Rate 29 ml/min (=/>90); Glucose Level 313 mg/dL (74-106); Protein, Total 6.9 g/dL (6.4-8.2); Sodium Level 135 mmol/L (136-145); Troponin High Sensitivity 18.1 pg/mL (<58.9)
[2022-07-11 17:38] LABS: AST/SGOT 19 U/L (15-37); Bilirubin Direct < 0.1 mg/dL (0-0.2); Magnesium 1.9 mg/dL (1.6-2.4); Potassium 5.2 mmol/L (3.5-5.1)
--- NOTE | 2022-07-11 18:10 | RAD REPORT ---
EXAM DESCRIPTION: CT - Head Brain Wo Cont - 07/11/2022 5:41 pm CLINICAL HISTORY: Syncope COMPARISON: 2021 TECHNIQUE: Computed axial tomography of the head was obtained. IV contrast was not requested. All CT scans are performed using dose optimization technique as appropriate and may include automated exposure control or mA/KV adjustment according to patient size. FINDINGS: An intracranial bleed is not seen The ventricles are normal in caliber No extra-axial fluid collection is noted. No significant hypodensity within the brain. Fluid within the sinuses/ mastoids is not seen. IMPRESSION: No acute intracranial abnormality is seen If patient's symptoms persist MRI of the brain would be recommended
--- NOTE | 2022-07-11 18:17 | RAD REPORT ---
EXAM DESCRIPTION: Sima Single View07/11/2022 5:31 pm CLINICAL HISTORY: Dizziness/weakness COMPARISON: 2018 and 2021 FINDINGS: The lungs appear clear of acute infiltrate. The heart is normal size. Aorta is tortuous/e ctatic IMPRESSION: No acute abnormalities displayed
--- NOTE | 2022-07-11 18:41 | ER ---
Nurse's Notes [facility] Name: Sabra Rodriguez Jr Age: 66 yrs Sex: Male : 1955 Arrival Date: 07/11/2022 Time: 16:37 Bed 13 Private MD: Diagnosis: Other peripheral vertigo Presentation: 07/11 16:37 Chief complaint: EMS states: Prior to arrival pt was doing laundry and felt dizziness jh5 and weakness but didn't fall or lose consciousness. Coronavirus screen: Vaccine status: Patient reports being unvaccinated. Client denies travel out of the [place] in the last 14 days. Ebola Screen: Patient negative for fever greater than or equal to 101.5 degrees Fahrenheit, and additional compatible Ebola Virus Disease symptoms Patient denies exposure to infectious person. Patient denies travel to an Ebola-affected area in the 21 days before illness onset. Initial Sepsis Screen: Does the patient meet any 2 criteria? No. Patient's initial sepsis screen is negative. Does the patient have a suspected source of infection? No. Patient's initial sepsis screen is negative. Risk Assessment: Do you want to hurt yourself or someone else? Patient reports no desire to harm self or others. 16:37 Method Of Arrival: EMS: [facility] 16:37 Acuity: KRISTINA 3 [facility] 16:40 Onset of symptoms was July 11, 2022. [facility] Triage Assessment: 16:38 General: Appears in no apparent distress. uncomfortable, well groomed, well developed, [facility] Behavior is calm, cooperative, appropriate for age. Pain: Denies pain. Historical: - Allergies: 16:38 No Known Allergies; 5 - PMHx: 16:38 Diabetes - NIDDM; Hypertension; Vision problems; 5 - PSHx: 16:38 Appendectomy; Cholecystectomy; [facility] - Immunization history:: Adult Immunizations up to date. - Social history:: Smoking status: Patient denies any tobacco usage or history of. Screenin:39 [facility] ED Fall Risk Assessment (Adult) History of falling in the last 3 months, [facility] including since admission No falls in past 3 months (0 pts) Confusion or Disorientation No (0 pts) Intoxicated or Sedated No (0 pts) Impaired Gait No (0 pts) Mobility Assist Device Used No (0 pt) Altered Elimination No (0 pt) Score/Fall Risk Level 0 - 2 = Low Risk. Abuse screen: Denies threats or abuse. Denies injuries from another. Nutritional screening: No deficits noted. Tuberculosis screening: No symptoms or risk factors identified. Vital Signs: 16:37 BP 195 / 99; Pulse 98; Resp 18; Temp 98.7; Pulse Ox 94% on R/A; Weight 72.57 kg; Height [facility] 5 ft. 6 in. (167.64 cm); Pain 0/10; 16:59 BP 164 / 97 Supine; Pulse 96; Resp 18; Pulse Ox 88% on R/A; jh5 16:59 BP 175 / 91 Sitting; Pulse 98; Resp 18; Pulse Ox 94% ; jh5 16:59 BP 174 / 82 Standing; Pulse 106; Resp 18; Pulse Ox 95% ; jh5 16:37 Body Mass Index 25.82 (72.57 kg, 167.64 cm) 5 ED Course: 16:37 Patient arrived in ED. 5 16:38 July Guardado MD is Attending Physician. sp3 16:38 Triage completed. jh5 16:38 Arm band placed on right wrist. jh5 16:39 Patient has correct armband on for positive identification. Bed in low position. Call [facility] light in reach. Side rails up X2. 16:39 No provider procedures requiring assistance completed. jh5 16:59 Missed attempt(s): 20 gauge in right antecubital area. jh5 17:16 Basic Metabolic Panel Sent. em1 17:16 CBC with Diff Sent. em1 17:16 Hepatic Function Sent. em1 17:16 Magnesium Sent. em1 17:16 Protime (+inr) Sent. em1 17:16 Ptt, Activated Sent. em1 17:16 Troponin High Sensitivity Sent. em1 17:16 Initial lab(s) drawn, by [facility], sent to lab. Inserted saline lock: 20 gauge in left em1 antecubital area, using aseptic technique. 17:38 Chest Single View XRAY In Process Unspecified. EDMS 17:43 CT Head Brain wo Cont In Process Unspecified. EDMS 18:40 Seth Garza MD is Referral Physician. sp3 19:01 IV discontinued, intact, bleeding controlled, No redness/swelling at site. Pressure 5 dressing applied. Administered Medications: 18:47 Drug: Antivert (meclizine) 25 mg Route: PO; 5 Medication: 16:40 VIS not applicable for this client. 5 Outcome: 18:40 Discharge ordered by . sp3 19:01 Discharged to home ambulatory. jh5 19:01 Condition: good 19:01 Discharge instructions given to patient, Instructed on discharge instructions, follow up and referral plans. medication usage, safety practices, Demonstrated understanding of instructions, follow-up care, medications, Prescriptions given X 1. 19:02 Patient left the ED. 5 Signatures: Dispatcher [employer] Jose Romo em1 July Guardado MD MD sp3 Linda Brock RN RN 5
--- NOTE | 2022-07-11 18:41 | EDPHYS ---
Physician Documentation [facility] Name: Sabra Rodriguez Jr Age: 66 yrs Sex: Male : 1955 Arrival Date: 07/11/2022 Time: 16:37 Bed 13 Private MD: ED Physician July Guardado HPI: 07/11 18:00 This 66 yrs old Male presents to ER via EMS with complaints of Near Syncope. sp3 18:17 66-year-old male with a history of diabetes, hypertension, CKD presents to the ED with sp3 2 weeks of near syncope and uneasiness on his feet. He states that he was winded when he walks and has had some episodic peripheral edema. Today he had dizziness x1 and emesis x2 which have both resolved. Denies any fever, headache, neck pain, chest pain, shortness of breath, abdominal pain, diarrhea, rash, focal deficits or weakness, new numbness or tingling, or any other symptoms on ROS. He states that he "just feels off".. Historical: - Allergies: 16:38 No Known Allergies; [facility] - PMHx: 16:38 Diabetes - NIDDM; Hypertension; Vision problems; 5 - PSHx: 16:38 Appendectomy; Cholecystectomy; [facility] - Immunization history:: Adult Immunizations up to date. - Social history:: Smoking status: Patient denies any tobacco usage or history of. ROS: 18:19 Constitutional: Negative for fever, chills, and weight loss, Eyes: Negative for injury, sp3 pain, redness, and discharge, ENT: Negative for injury, pain, and discharge, Neck: Negative for injury, pain, and swelling, Cardiovascular: Negative for chest pain, palpitations, and edema, Respiratory: Negative for shortness of breath, cough, wheezing, and pleuritic chest pain, Abdomen/GI: Negative for abdominal pain, nausea, vomiting, diarrhea, and constipation, Back: Negative for injury and pain, Skin: Negative for injury, rash, and discoloration, Neuro: Negative for headache, weakness, numbness, tingling, and seizure, Psych: Negative for depression, anxiety, suicide ideation, homicidal ideation, and hallucinations, Allergy/Immunology: Negative for hives, rash, and allergies, Endocrine: Negative for neck swelling, polydipsia, polyuria, polyphagia, and marked weight changes. Exam: 18:19 Constitutional: This is a well developed, well nourished patient who is awake, alert, sp3 and in no acute distress. Head/Face: Normocephalic, atraumatic. Eyes: Pupils equal round and reactive to light, extra-ocular motions intact. Lids and lashes normal. Conjunctiva and sclera are non-icteric and not injected. Cornea within normal limits. Periorbital areas with no swelling, redness, or edema. ENT: Nares patent. No nasal discharge, no septal abnormalities noted. External auditory canals are clear. Oropharynx with no redness, swelling, or masses, exudates, or evidence of obstruction, uvula midline. Mucous membranes moist. Neck: Trachea midline, no thyromegaly or masses palpated, and no cervical lymphadenopathy. Supple, full range of motion without nuchal rigidity, or vertebral point tenderness. No Meningismus. Chest/axilla: Normal chest wall appearance and motion. Nontender with no deformity. No lesions are appreciated. Cardiovascular: Regular rate and rhythm with a normal S1 and S2. No gallops, murmurs, or rubs. Normal PMI, no JVD. No pulse deficits. Respiratory: Lungs have equal breath sounds bilaterally, clear to auscultation and percussion. No rales, rhonchi or wheezes noted. No increased work of breathing, no retractions or nasal flaring. Abdomen/GI: Soft, non-tender, with normal bowel sounds. No distension or tympany. No guarding or rebound. No evidence of tenderness throughout. Skin: Warm, dry with normal turgor. Normal color with no rashes, no lesions, and no evidence of cellulitis. MS/ Extremity: Pulses equal, no cyanosis. Neurovascular intact. Full, normal range of motion. Neuro: Awake and alert, GCS 15, oriented to person, place, time, and situation. Cranial nerves II-XII grossly intact. Motor strength 5/5 in all extremities. Sensory grossly intact. Cerebellar exam normal. Normal gait. Psych: Awake, alert, with orientation to person, place and time. Behavior, mood, and affect are within normal limits. 18:20 ECG was reviewed by the Attending Physician. 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 Vital Signs: 16:37 BP 195 / 99; Pulse 98; Resp 18; Temp 98.7; Pulse Ox 94% on R/A; Weight 72.57 kg; Height 5 5 ft. 6 in. (167.64 cm); Pain 0/10; 16:59 BP 164 / 97 Supine; Pulse 96; Resp 18; Pulse Ox 88% on R/A; jh5 16:59 BP 175 / 91 Sitting; Pulse 98; Resp 18; Pulse Ox 94% ; 5 16:59 BP 174 / 82 Standing; Pulse 106; Resp 18; Pulse Ox 95% ; 5 16:37 Body Mass Index 25.82 (72.57 kg, 167.64 cm) [facility] MDM: 16:52 Patient medically screened. sp3 18:21 Data reviewed: vital signs, nurses notes, old medical records, lab test result(s), EKG, sp3 radiologic studies. ED course: 66-year-old male with multiple past medical history presents with near syncope. Differential diagnosis is broad and includes TIA/CVA spectrum, ICH, ACS, CHF, sepsis/infection (non-RN POSTPARTUM), vertigo, among others. Renal function is at 2 with prior records supporting that range. Patient has lost his primary care physician due to the practice closing and is in need of another practice. His career specialist is in [place] whom he sees regularly. He states that "they told him his heart was fine." As far as laboratory work and imaging based on my read demonstrate no acute abnormality. Will await attending read further radiology and also ambulate patient to assess gait and independence as well as gross ADLs. If patient is successful, will discharge patient home to PCP follow-up and continued outpatient work-up. I do not believe patient has had a CVA or other neurological acute event.. 18:39 ED course: CT scan of the head and x-ray are also normal. Patient is ambulating though sp3 does have mild vertigo on ambulation. Will give Antivert 25 mg p.o. once in the ED and discharged him home on p.o. vertigo and follow-up with new PCP Dr. Garza as well as his career specialist.. 07/11 16:42 Order name: Basic Metabolic Panel; Complete Time: 17:49 sp3 07/11 16:42 Order name: CBC with Diff; Complete Time: 17:49 sp3 07/11 16:42 Order name: Hepatic Function; Complete Time: 17:49 sp3 07/11 16:42 Order name: Magnesium; Complete Time: 17:49 sp3 07/11 16:42 Order name: Protime (+inr); Complete Time: 17:49 sp3 07/11 16:42 Order name: Ptt, Activated; Complete Time: 17:49 sp3 07/11 16:42 Order name: Troponin High Sensitivity; Complete Time: 17:49 sp3 07/11 16:42 Order name: CT Head Brain wo Cont; Complete Time: 18:37 sp3 07/11 16:42 Order name: Chest Single View XRAY; Complete Time: 18:37 sp3 07/11 16:42 Order name: EKG; Complete Time: 16:43 sp3 07/11 16:42 Order name: Cardiac monitoring; Complete Time: 16:44 sp3 07/11 16:42 Order name: EKG - Nurse/Tech; Complete Time: 18:01 sp3 07/11 19:00 Order name: Urine Dipstick-Ancillary EDMS 07/11 16:42 Order name: IV Saline Lock; Complete Time: 17:16 sp3 07/11 16:42 Order name: Labs collected and sent; Complete Time: 17:16 sp3 07/11 16:42 Order name: NPO; Complete Time: 16:44 sp3 07/11 16:42 Order name: O2 Per Protocol; Complete Time: 16:44 sp3 07/11 16:42 Order name: O2 Sat Monitoring; Complete Time: 16:44 sp3 07/11 16:42 Order name: Orthostatics; Complete Time: 17:31 sp3 07/11 16:42 Order name: Urine Dipstick-Ancillary (obtain specimen); Complete Time: 18:58 sp3 Administered Medications: 18:47 Drug: Antivert (meclizine) 25 mg Route: PO; jh5 Disposition Summary: 07/11/22 18:40 Discharge Ordered Location: Home sp3 Condition: Stable sp3 Diagnosis - Other peripheral vertigo sp3 Followup: sp3 - With: Seth Garza MD - When: Upon discharge from the Emergency Department - Reason: Recheck today's complaints Discharge Instructions: - Discharge Summary Sheet sp3 - Vertigo sp3 Forms: - Medication Reconciliation Form sp3 - Thank You Letter sp3 - Antibiotic Education sp3 - Prescription Opioid Use sp3 Prescriptions: - Meclizine 25 mg Oral Tablet - take 1 tablet by ORAL route every 8 hours As needed; 30 tablet; Refills: 0, sp3 Product Selection Permitted Signatures: Dispatcher [employer] July Maier MD MD sp3 Linda Brock RN RN jh5
[2022-07-11] MEDS ORDERED: MECLIZINE HCL 12.5 MG TAB ONE (18:50)
[2022-07-11 18:59] LABS: Urine Blood 1+ (Negative); Urine Glucose 2+ (Negative); Urine Protein 3+ (Negative); Urine pH 6.5 (5.0-7.0)
[2022-07-11 19:41] VITALS: TEMP 98.7
[2022-07-11 19:44] VITALS: BP 174/82; O2SAT 95
== END 2022-07-11 19:02 | disposition home or self-care (01) ==
LOC: ER 16:35
DX: H81.399 Other peripheral vertigo, unspecified ear (principal); E11.22 Type 2 diabetes mellitus with diabetic chronic kidney disease; I12.9 Hypertensive chronic kidney disease with stage 1 through stage 4 chronic kidney disease, or unspecified chronic kidney disease; N18.9 Chronic kidney disease, unspecified
CPT/HCPCS: 85025; 80048; 36415; 83735; 85610; 80076; 85730; 81003; 84484; 70450; 71045; J8597; 93005

== ENCOUNTER 2023-01-16 11:02 | Emergency (ER) | payer OTHER ==
--- OUTSIDE RECORDS SUMMARY | 2023-01-16 11:08 | XMS REPORT | Continuity of Care Document ---
:1955 Author Organization [facility] t Address [address] [place] [id number] Care Team Providers Name Role Phone Pcp, Patient Does Not Have A Primary Care Physician [id number] ADDY GORDON Attending Clinician Unavailable BOBY TAMEZ Attending Clinician Unavailable ANGELA JARQUIN Attending Clinician Unavailable Addy Gordon MD Attending Clinician Pob, [facility] Main Attending Clinician Unavailable Doctor Unassigned, [place] Attending Clinician Unavailable Only, Adc Test Attending Clinician Unavailable ADDY GORDON Admitting Clinician Unavailable BOBY TAMEZ Admitting Clinician Unavailable ANGELA JARQUIN Admitting Clinician Unavailable Addy Gordon MD Admitting Clinician Payers Payer Name Policy Type Policy Number Effective Date Expiration Date S ource [place] [facility] [id number] 2018 OF [facility] 00:00:00 BCBS OS POS/PPO/EPO [id number] 2018 00:00:00 CDC REVIEW [id number] 2019 00:00:00 ZZCDCREVIEW [id number] 2018 2018 00:00:00 00:00:00 Problems Condition Condition Condition Status Onset Resolution Last Treating Co mments Source Name Details Category Date Date Treatment Clinician Date Acute Acute Disease Recurre [facility] injury injury 00:00: Medical 00 [place] Essential Essential Disease Active [facility] hypertensi hypertensi 6-04 Ananya kes on on 00:00: Medical 00 [place] Non-insuli Non-insuli Disease Recurre [facility] n n nce 6 [facility] dependent dependent 00:00: Medi glenda type 2 type 2 00 Center diabetes diabetes mellitus mellitus Bile leak, Bile leak, Disease Active [facility] postoperat postoperat 11-05 Ananya kes deep deep 00:00: Medical 00 [place] BMI BMI Problem Active Common 40.0-44.9, 40.0-44.9, Sp john adult adult - [facility] Nocturia Nocturia Problem Active Commo n Spirit - [facility] Type 2 Type 2 Problem Active Common diabetes diabetes Spirit mellitus mellitus - [facility] with with St hyperglyce hyperglyce [facility] HTN, goal HTN, goal Problem Active Com mon below below Spirit 130/80 130/80 [facility] Type 2 Type 2 Problem Active Common diabetes diabetes Spirit mellitus mellitus - [facility] with with St diabetic diabetic [facility] nephropath nephropath Me dical y y Center Mixed Mixed Problem Active Common hyperlipid hyperlipid Sp john emia emia [facility] Proteinuri Proteinuri Problem Active C ommon a, a, Spirit unspecifie unspecifie - [facility] d type d type [facility] Allergies, Adverse Reactions, Alerts Allergy Allergy Status Severity Reaction(s) Onset Inactive Treating Comm ents Source Name Type Date Date Clinician NO KNOWN Allergy Active [facility] ALLERGIE [facility] NO KNOWN Drug Active Univers ALLERGIE Class ity of [facility] Social History Social Habit Start Date Stop Date Quantity Comments Source History SDOH [facility] Alcohol Std Medical Cente r Drinks History SDOH [facility] Alcohol Binge Medical Maddy ter History SDOH [facility] Alcohol Comment Medical C enter Exposure to 2022-04-08 2022-04-18 Not sure University SARS-CoV-2 00:00:00 13:02:00 [facility] (event) Branch Alcohol intake 2020-04-20 2020-04-[address] Xiomy es 00:00:00 00:00:00 non-drinker of Medical Ce nter alcohol (finding) Tobacco use and 2020-02-05 2020-02-[address] Smok[address] [facility] exposure 00:00:00 00:00:00 non-user Medical Center History SDOH 2020-02-05 2020-02-05 1 EVANGELISTA Ballard Alcohol Frequency 00:00:00 00:00:00 [facility] Center Sex Ass[birth year] At [birth year] EVANGELISTA Careys 00:00:00 00:00:00 [facility] Center Smoking Status Start Date Stop Date Source Unknown if ever smoked [facility] Never smoked tobacco [facility] Medications Ordered Filled Start Stop Current Ordering Indication Dosage Frequency Signature Comments Components Source Medication Medication Date Date Medication? Clinician (SIG) Name Name neomycin-po 2021-06- No PRN, Unive rs lymyxin-dex 06-21 Starting ity of amethasone 15:26: 15:[facility] (MAX[facility]ROL) 00 :44 04/21/22 Medic al 3.5 at 09, Branch mg/g-10,000 Until [facility] unit/g-0.1 04/21/22 % at 0933, ophthalmic Routine, ointment Intra-op gentamicin 2021-06- No PRN, Univer s injection 06-21 Starting ity o f 15:26: 15:33 on Amanda [place] 00 :44 04/21/22 Medical at 0926, Branch Until Amanda 04/21/22 at 0933, GARRETT, Intra-op dexamethaso 2021-06- No PRN, Unive rs ne 06-21 Starting ity of (DECADRON 15:26: 15:33 on Amanda [place] PHOSPHATE) 00 :44 04/21/22 Medic al injection at 0926, Branch Until Amanda 04/21/22 at 0933, Routine, Intra-op eye block 2021-06- No PRN, Univers syringe 11 06-21 Starting ity of mL 15:21: 15:33 on Amanda [place] 00 :44 04/21/22 Medical at 0921, Branch [...] ity of injection 15:06: 15:33 on Amanda [place] 00 :44 04/21/22 Medical at 0906, Branch Until Amanda 04/21/22 at 0933, GARRETT, Intra-op water for 2021-06- No PRN, Univers irrigation 06-21 Starting ity of irrigation 14:55: 15:33 [facility] solution 00 :44 04/21/22 Medical at 0855, Branch Until Amanda 04/21/22 at 0933, Routine, Intra-op NaCl 0.9% 2021-06- No PRN, Univers (NS) 06-21 Starting ity of injection 14:54: 15:33 on [facility] [place] 00 :44 04/21/22 Medical at 0854, Branch Until Amanda 04/21/22 at 0933, Routine, Intra-op EPINEPHrine 2021-06- No PRN, Unive rs (PF) 06-21 Starting ity of 1:1,000 (1 14:53: 15:33 on [facility] [place] mg/mL[place] 00 :44 04/21/22 Medical (ADRENALIN at 0853, [facility] h (PF)) Until Amanda injection 04/21/22 at [...] mg Cap -17 mouth. ity of 10:18: [place] [address] Medical Branch gemfibroziL 2021-06 Yes 1{tbl} Take 1 Un smooth 600 mg -17 tablet by ity of tablet 10:18: mouth in [place] 48 the Medical morning Branch and 1 tablet in the evening. lisinopriL- 2021-06 Yes 1{tbl} Take 1 Un smooth hydrochloro 1-17 tablet by ity of thiazide 10:18: mouth in [place] 20-12.5 mg 48 the Medical per tablet morning. [facility] metformin 2021-06 Yes 1{tbl} Take 1 Univ ers ER 500 mg 1-17 tablet by ity o f 24 hr 10:18: mouth in [place] tablet 48 the Medical morning. Branch multivitami 2021-06 Yes 1{capsu Take 1 U nivers n capsule 1-17 le} capsule by ity of 10:18: mouth in [place] 48 the Medical morning. Branch aspirin 81 2021-06 Yes Take by Univ ers mg Cap 1-17 mouth. ity of 10:18: [place] 48 Medical Branch gemfibroziL 2021-06 Yes 1{tbl} Take 1 Un smooth 600 mg 1-17 tablet by ity of tablet 10:18: mouth in [place] 48 the Medical morning Branch and 1 tablet in the evening. lisinopriL- 2021-06 Yes 1{tbl} Take 1 Un smooth hydrochloro 1-17 tablet by ity of thiazide 10:18: mouth in [place] 20-12.5 mg 48 the Medical per tablet morning. [facility] metformin 2021-06 Yes 1{tbl} Take 1 Univ ers ER 500 mg 1-17 tablet by ity o f 24 hr 10:18: mouth in [place] tablet 48 the Medical morning. Branch multivitami 2021-06 Yes 1{capsu Take 1 U nivers n capsule 1-17 le} capsule by ity of 10:18: mouth in [place] 48 the Medical morning. Branch bisoproloL- 2021-06- No 1{tbl} Take 1 U nivers hydrochloro 1-17 11-14 tablet by it y of thiazide 10:18: 00:00 [place] 5-6.25 mg 48 :00 the Medical per tablet morning. [facility] bisoproloL- 2021-06- No 1{tbl} Take 1 U nivers hydrochloro 1-17 11-14 tablet by it y of thiazide 10:18: 00:00 [place] 5-6.25 mg 48 :00 the Medical per tablet morning. [facility] gemfibroziL 2021-06 Yes 1{tbl} Take 1 Un smooth 600 mg 1-14 tablet by ity of tablet 13:00: mouth in [place] [address] the Medical morning Branch and 1 tablet in the evening. lisinopriL- 2021-06 Yes 1{tbl} Take 1 Un smooth hydrochloro 1-14 tablet by ity of thiazide 13:00: mouth in [place] 20-12.5 mg 22 the Medical per tablet morning. [facility] metformin 2021-06 Yes 1{tbl} Take 1 Univ ers ER 500 mg 1-14 tablet by ity o f 24 hr 13:00: mouth in [place] tablet 22 the Medical morning. Branch multivitami 2021-06 Yes 1{capsu Take 1 U nivers n capsule 1-14 le} capsule by ity of 13:00: mouth in [place] [address] the Medical morning. Branch gemfibroziL 2021-06 Yes 1{tbl} Take 1 Un smooth 600 mg 1-14 tablet by ity of tablet 13:00: mouth in [place] [address] the Medical morning Branch and 1 tablet in the evening. lisinopriL- 2021-06 Yes 1{tbl} Take 1 Un smooth hydrochloro 1-14 tablet by ity of thiazide 13:00: mouth in [place] 20-12.5 mg 22 the Medical per tablet morning. [facility] metformin 2021-06 Yes 1{tbl} Take 1 Univ ers ER 500 mg 1-14 tablet by ity o f 24 hr 13:00: mouth in [place] tablet 22 the Medical morning. Branch multivitami 2021-06 Yes 1{capsu Take 1 U nivers n capsule 1-14 le} capsule by ity of 13:00: mouth in [place] [address] the Medical morning. Branch gemfibroziL 2021-06 Yes 1{tbl} Take 1 Un smooth 600 mg 1-14 tablet by ity of tablet 13:00: mouth in [place] [address] the Medical morning Branch and 1 tablet in the evening. lisinopriL- 2021-06 Yes 1{tbl} Take 1 Un smooth hydrochloro 1-14 tablet by ity of thiazide 13:00: mouth in [place] 20-12.5 mg 22 the Medical per tablet morning. [facility] metformin 2021-06 Yes 1{tbl} Take 1 Univ ers ER 500 mg 1-14 tablet by ity o f 24 hr 13:00: mouth in [place] tablet 22 the Medical morning. [place] multivitami 2021-06 Yes 1{capsu Take 1 U nivers n capsule 1-14 le} capsule by ity of 13:00: mouth in [place] 22 the Medical morning. Branch lisinopriL 2021-06 No 20mg Take 20 mg Univers 20 mg -14 -14 by mouth ity of tablet 12:59: 00:00 daily. [place] 48 :00 [facility] lisinopriL 2021-06 No 20mg Take 20 mg Univers 20 mg -14 11-14 by mouth ity of tablet 12:59: 00:00 daily. [place] 48 :00 [facility] aspirin 81 2021-06 Yes Take by Univ ers mg Cap 1-14 mouth. ity of 12:56: [address] aspirin 81 2021-06 Yes Take by Univ ers mg Cap 1-14 mouth. ity of 12:56: [address] aspirin 81 2021-06 Yes Take by [facility] ers mg Cap 1-14 mouth. ity of 12:56: [address] lactated 2020-06 Yes 1000mL at 42 [...] ity of (PF)) 15:25: 17:35 PRN, 1 [place] injection 4 29 :53 dose, Medical mg Starting Branch on Amanda 05/13/21 at 0925, Until Amanda 05/13/21 at 1135, Routine, Nausea and Vomiting (N/V), PACU NaCl 0.9% 2020-06 Yes PRN, Univers (NS) 07-14 Starting ity of injection 15:01: on Amanda [place] 05/13/21 at [facility] 0901, Branch Until Discontinu ed, Routine, Intra-op NaCl 0.9% 2020-06- No PRN, Univers (NS) 07-14 Starting ity of injection 15:01: 17:35 on Amanda [place] 00 :53 05/13/21 at [facility] 0901, Branch Until Amanda 05/13/21 at 1135, Routine, Intra-op neomycin-po 2020-06 Yes PRN, Univer s lymyxin-dex 07-14 Starting ity of amethasone 15:00: on Amanda [place] (MAXITROL) 00 05/13/21 at Med ical 3.5 0900, Branch mg/g-10,000 Until unit/g-0.1 Discontinu % ed, ophthalmic Routine, ointment Intra-op neomycin-po 2020-06- No PRN, Unive rs lymyxin-dex 07-14 Starting ity of amethasone 15:00: 17:35 on [facility] (MAXITROL) 00 :53 05/13/21 at Med ical 3.5 0900, Branch mg/g-10,000 Until Amanda unit/g-0.1 05/13/21 at % 1135, ophthalmic Routine, ointment Intra-op gentamicin 2020-06 Yes PRN, Univers injection 07-14 Starting ity of 14:59: on Amanda [place] 05/13/21 at [facility] 0859, Branch Until Discontinu ed, GARRETT, [...] on Amanda [place] mg/mL) 00 05/13/21 at [facility] (ADRENALIN 0845, Branch (PF)) Until injection Discontinu ed, Routine, Intra-op DUOVISC 2020-06 Yes PRN, Univers (DUOVISC 07-14 Starting ity of VISCO 14:45: on Amanda [place] ELASTIC) 3 00 05/13/21 at [facility] ical %-4 %(0.5 0845, Branch mL) [...] ) 0.5 % 14:39: 17:35 on Amanda [place] ophthalmic 00 :53 05/13/21 at [facility] ical drops 0839, Branch Until Amanda 05/13/21 at 1135, Routine, Intra-op eye block 2020-06- No PRN, Univers syringe 11 07-14 Starting ity of mL 14:39: 17:35 on Amanda [place] 00 :53 05/13/21 at Medical 0839, Branch [...] by mouth ity of tablet 09:35: daily. [address] aspirin 81 2020-06 Yes Take by Univ ers mg Cap 2-09 mouth. ity of 09:35: [address] lisinopriL 2020-06 Yes 20mg Take 20 mg U nivers 20 mg 2-09 by mouth ity of tablet 09:35: daily. [address] aspirin 81 2020-06 Yes Take by Univ ers mg Cap 2-09 mouth. ity of 09:35: [address] multivitami 2019-06 Yes 1{capsu QD Take [address] n capsule 1-12 le} capsule by Luke s 19:58: mouth Medical 40 daily. [place] aspirin 81 2019-06 Yes 81mg QD Take [address] MG EC 1-12 by mouth [facility]ukes tablet 19:58: daily. [address] Missing or 2019-06 Yes QD daily BP [facility] Non-Formula 1-12 PIll . [facility] ry 19:58: Medical Medication 40 [place] [facility] 2019-06 Yes 1{capsu QD Take [address] n capsule 1-12 le} capsule by Luke s 19:58: mouth Medical 40 daily. [place] aspirin 81 2019-06 Yes 81mg QD Take [address] MG EC 1-12 by mouth [facility]ukes tablet 19:58: daily. [address] Missing or 2019-06 Yes QD daily BP [facility] Non-Formula 1-12 PIll . [facility] ry 19:58: Medical Medication 40 [place] multivitaks 2019-06 Yes 1{capsu QD Take [address] n capsule 1-12 le} capsule by Luke s 19:58: mouth Medical 40 daily. [place] aspirin 81 2019-06 Yes 81mg QD Take [address] MG EC 1-12 by mouth [facility]ukes tablet 19:58: daily. [address] Missing or 2019-06 Yes QD daily BP [facility] Non-Formula 1-12 PIll . [facility] ry 19:58: Medical Medication 40 [place] multivitami 2019-06 Yes 1{capsu QD Take [address] n capsule 1-12 le} capsule by Luke s 19:58: mouth Medical 40 daily. [place] aspirin 81 2019-06 Yes 81mg QD Take [address] MG EC 1-12 by mouth [facility]ukes tablet 19:58: daily. Medical 40 Center Missing or 2019-06 Yes QD daily BP [facility] Non-Formula 1-12 PIll . [facility] ry 19:58: Medical Medication 40 [place] [facility] 2019-06 Yes 1{capsu QD Take [address] n capsule 1-12 le} capsule by Luke s 19:58: mouth Medical 40 daily. [place] aspirin 81 2019-06 Yes 81mg QD Take [address] MG EC 1-12 by mouth [facility]ukes tablet 19:58: daily. Medical 40 Center Missing or 2019-06 Yes QD daily BP [facility] Non-Formula 1-12 PIll . [facility] ry 19:58: Medical Medication 40 [place] Lisinopril- Lisinopril- 2017-0 Yes [place] 1 tablet Common Hydrochloro Hydrochloro -16 [place] [facility] thiazide thiazide 00:00: - CHI 00 [facility] GlipiZIDE GlipiZIDE 2017-0 Yes [place] 1 tablet Common 6-06 [place] [facility] 00:00: - CHI 00 [facility] Jardiance Jardiance 2017-0 2018- No [place] 1 tablet Common 5-18 07-16 [place] [facility] 00:00: 00:00 - CHI 00 :00 [facility] Lisinopril- Lisinopril- Yes [place] 1 tablet Common Hydrochloro Hydrochloro [place] [facility] thiazide thiazide - [facility] Simvastatin Simvastatin Yes [place] 1 tablet Common [place] in the Spirit evening - [facility] Metformin Metformin Yes [place] 1 tablet Common HCl HCl [place] with a Spirit meal - [facility] Vital Signs Vital Name Observation Time Observation [...] 2022-04-21 15:57:00 71 /min [facility] [place] [facility] Respiratory rate 2022-04-21 15:57:00 18 /min Univ ers[facility] [place] [facility] Oxygen saturation in 2022-04-21 15:57:00 100 /min University of Arterial blood by [facility] Pulse oximetry Branch Systolic blood 2022-04-21 15:54:00 178 mm[Hg] Univer sity of pressure [place] [facility] Diastolic blood 2022-04-21 15:54:00 77 mm[Hg] Unive rsity of pressure [place] [facility] Body temperature 2022-04-21 15:39:00 36.56 Rachel [facility] [place] [facility] Body height 2022-04-21 14:29:00 169 cm [facility] [place] [facility] Body weight 2022-04-21 14:29:00 115.3 kg [facility] [place] [facility] BMI 2022-04-21 14:29:00 40.37 kg/m2 [facility] [place] [facility] Systolic blood 2022-04-21 15:48:00 182 mm[Hg] Univer sity of pressure [place] [facility] Diastolic blood 2022-04-21 15:48:00 82 mm[Hg] Unive rsity of pressure [place] [facility] Heart rate 2022-04-21 15:48:00 74 /min [facility] [place] [facility] Respiratory rate 2022-04-21 15:48:00 16 /min Univ [facility] [place] [facility] Oxygen saturation in 2022-04-21 15:48:00 100 /min University of Arterial blood by [facility] Pulse oximetry Branch Body temperature 2022-04-21 15:39:00 36.56 Rachel [facility] [place] [facility] Body height 2022-04-21 14:29:00 169 cm [facility] [place] [facility] Body weight 2022-04-21 14:29:00 115.3 kg [facility] [place] [facility] BMI 2022-04-21 14:29:00 40.37 kg/m2 [facility] [place] [facility] Systolic blood 2021-05-13 15:25:00 167 mm[Hg] Univer sity of pressure [place] [facility] Diastolic blood 2021-05-13 15:25:00 59 mm[Hg] Unive rsity of pressure [place] [facility] Heart rate 2021-05-13 15:25:00 58 /min [facility] [place] [facility] Respiratory rate 2021-05-13 15:25:00 13 /min [facility] [place] [facility] Oxygen saturation in 2021-05-13 15:25:00 98 /min University of Arterial blood by [place] [facility] glenda Pulse oximetry Branch Body temperature 2021-05-13 15:08:00 36.39 Rachel [facility] [place] [facility] Body height 2021-05-11 20:25:00 169 cm [facility] [place] [facility] Body weight 2021-05-11 20:25:00 115.3 kg [facility] [place] [facility] BMI 2021-05-11 20:25:00 40.37 kg/m2 [facility] [place] [facility] Systolic blood 2021-05-13 13:05:00 185 mm[Hg] Univer sity of pressure [place] [facility] Diastolic blood 2021-05-13 13:05:00 80 mm[Hg] Unive rsity of pressure [place] [facility] Heart rate 2021-05-13 13:05:00 61 /min [facility] [place] [facility] Body temperature 2021-05-13 13:05:00 36.61 Rachel [facility] [place] [facility] Respiratory rate 2021-05-13 13:05:00 18 /min [facility] [place] [facility] Oxygen saturation in 2021-05-13 13:05:00 99 /min University of Arterial blood by [facility] glenda Pulse oximetry Branch Body height 2021-05-11 20:25:00 169 cm [facility] [place] [facility] Body weight 2021-05-11 20:25:00 115.3 kg [facility] [place] [facility] BMI 2021-05-11 20:25:00 40.37 kg/m2 [facility] [place] [facility] HEIGHT 2020-04-16 12:31:00 167.6 cm WEIGHT 2020-04-16 12:31:00 115.44 kg HEIGHT 2020-04-14 16:40:00 167.6 cm WEIGHT 2020-04-14 16:40:00 90.719 kg HEIGHT 2020-03-10 15:50:00 167.6 cm WEIGHT 2020-03-10 15:50:00 90.719 kg HEIGHT 2020-01-09 00:00:00 167.6 cm WEIGHT 2020-01-09 00:00:00 90.719 kg HEIGHT 2019-11-05 00:00:00 167.6 cm WEIGHT 2019-11-05 00:00:00 113.853 kg Procedures Procedure Date / Time Performing Source Performed Clinician PHACOEMULSIFICATION OF 2022-04-21 [facility] CATARACT WITH INTRAOCULAR 15:00:00 Adebayo Guaman LENS IMPLANT POCT GLUCOSE (AUTOMATED) 2022-04-21 [facility] 14:29:00 [facility] POCT GLUCOSE (AUTOMATED) 2022-04-21 [facility] 14:29:00 [facility] COMP. METABOLIC PANEL (78611) 2022-04-19 [facility] 21:37:00 [facility] CBC WITH DIFF 2022-04-19 [facility] 21:37:00 [facility] ASSIGNMENT OF BENEFITS 2022-04-19 Doctor Unassigned, [facility] 21:27:04 [place] [facility] PHACOEMULSIFICATION OF 2021-05-13 [facility] CATARACT WITH INTRAOCULAR 14:27:00 Adebayo [facility] eliana Guaman LENS IMPLANT HB ECG ROUTINE & RHYTHM STRIP 2021-05-13 [facility] [address] 13:40:06 [facility] HB ECG ROUTINE & RHYTHM STRIP 2021-05-13 [facility] [address] 13:40:06 [facility] POCT GLUCOSE (AUTOMATED) 2021-05-13 [facility] 13:18:00 [facility] POCT GLUCOSE (AUTOMATED) 2021-05-13 [facility] 13:18:00 [facility] Plan of Care Planned Activity Planned Date Details Comments Source Future Scheduled 2023-02-03 Influenza Vaccine (#1) [facility] 00:00:00 [code = Influenza Medical Ce nter Vaccine (#1)] Future Scheduled 2023-02-[address] [facility] Test 00:00:00 (Season Ended) [code = Medic al Center Influenza Vaccine (Season Ended)] Future Scheduled 2023-02-[address] [facility] Test 00:00:00 (Season Ended) [code = Medic al Center Influenza Vaccine (Season Ended)] Future Scheduled 2023-02-03 Influenza Vaccine (#1) [facility] 00:00:00 [code = Influenza Medical Ce nter Vaccine (#1)] Future Scheduled 2022-06-[address] [facility] Test 00:00:00 (12+) [code = Medical Center DEPRESSION SCREENING (12+)] Future Scheduled 2022-06-[address] [facility] Test 00:00:00 (12+) [code = Medical Center DEPRESSION SCREENING (12+)] Future Scheduled 2022-06-[address] [facility] Test 00:00:00 (12+) [code = Medical Center DEPRESSION SCREENING (12+)] Future Scheduled 2022-06-[address] [facility] Test 00:00:00 (12+) [code = Medical Center DEPRESSION SCREENING (12+)] Future Scheduled 2022-06-[address] [...] Cessation Counseling and Screening (12+)] Future Scheduled 2021-04-[address] [facility] Test 00:00:00 Counseling and Medical Cente r Screening (12+) [code = Tobacco Cessation Counseling and Screening (12+)] Future Scheduled 2021-04-[address] [facility] Test 00:00:00 Counseling and Medical Cente r Screening (12+) [code = Tobacco Cessation Counseling and Screening (12+)] Future Scheduled 2021-04-[address] [facility] Test 00:00:00 Counseling and Medical Cente r Screening (12+) [code = Tobacco Cessation Counseling and Screening (12+)] Future Scheduled 2021-04-[address] [...] [facility] Ananya k[facility] Test 00:00:00 measurement (procedure) Medi glenda Center [code = [id number]] Future Scheduled 2020-05-[address] [facility] Test 00:00:00 measurement (procedure) [facility] glenda Center [code = [id number]] Future Scheduled 2020-05-[address] [facility] Test 00:00:00 measurement (procedure) [facility] Center [code = [id number]] Future Scheduled 2020-05-[address] Ananya kes Test 00:00:00 measurement (procedure) Medi glenda Center [code = [id number]] Future Scheduled 2020-05-[address] Ananya k[facility] Test 00:00:00 measurement (procedure) [facility] Center [code = [id number]] Future Scheduled 2007-12-31 SHINGLES VACCINES ([address] [facility] Test 00:00:00 2) [code = SHINGLES Medical [place] VACCINES (1 of 2)] Future Scheduled 2007-12-31 SHINGLES VACCINES ([address] [facility] Test 00:00:00 2) [code = SHINGLES Medical Center VACCINES (1 of 2)] Future Scheduled 2007-12-31 SHINGLES VACCINES ([address] [facility] Test 00:00:00 2) [code = SHINGLES Medical Center VACCINES (1 of 2)] Future Scheduled 2007-12-31 SHINGLES VACCINES ([address] [facility] Test 00:00:00 2) [code = SHINGLES Medical Center VACCINES (1 of 2)] Future Scheduled 2007-12-31 SHINGLES VACCINES ([address] [facility] Test 00:00:00 2) [code = SHINGLES Medical Center VACCINES (1 of 2)] Future Scheduled 1992 Lipid panel (procedure) [facility] Test 00:00:00 [code = 72706506] Medical Ce nter Future Scheduled 1992 Lipid panel (procedure) [facility] 00:00:00 [code = 62541009] Medical Ce nter Future Scheduled 1992 Lipid panel (procedure) [facility] 00:00:00 [code = 86048257] Medical Ce nter Future Scheduled 1992 Lipid panel (procedure) [facility] 00:00:00 [code = 50018885] Medical Ce nter Future Scheduled 1992 Lipid panel (procedure) [facility] 00:00:00 [code = 25708885] Medical Ce nter Future Scheduled 1976 DTAP/TDAP/TD VACCINES [facility] 00:00:00 (1 - Tdap) [code = Medical C enter DTAP/TDAP/TD VACCINES (1 - Tdap)] Future Scheduled 1976 DTAP/TDAP/TD VACCINES [facility] 00:00:00 (1 - Tdap) [code = Medical C enter DTAP/TDAP/TD VACCINES (1 - Tdap)] Future Scheduled 1976 DTAP/TDAP/TD VACCINES [facility] 00:00:00 (1 - Tdap) [code = Medical C enter DTAP/TDAP/TD VACCINES (1 - Tdap)] Future Scheduled 1976 DTAP/TDAP/TD VACCINES [facility] 00:00:00 (1 - Tdap) [code = Medical C enter DTAP/TDAP/TD VACCINES (1 - Tdap)] Future Scheduled 1976 DTAP/TDAP/TD VACCINES [facility] 00:00:00 (1 - Tdap) [code = Medical C enter DTAP/TDAP/TD VACCINES (1 - Tdap)] Future Scheduled 1975-12-31 HEPATITIS C [facility]CRE[facility]ING [facility] 00:[facility]:00 [code = HEPATITIS C [facility] SCREENING] Future Scheduled 1975-12-31 HEPATITIS C [facility]ING [facility] 00:00:00 [code = HEPATITIS C Medical Center SCREENING] Future Scheduled 1975-12-31 HEPATITIS C [facility]ING [facility] 00:00:00 [code = HEPATITIS C Medical Center SCREENING] Future Scheduled 1975-12-31 HEPATITIS C [facility]ING [facility] 00:00:00 [code = HEPATITIS C Medical Center SCREENING] Future Scheduled 1975-12-31 HEPATITIS C [facility]ING [facility] 00:00:00 [code = HEPATITIS C Medical Center SCREENING] Future Scheduled 1967-12-31 DIABETIC EYE EXAM [code [facility] 00:00:00 = DIABETIC EYE EXAM] Medical Center Future Scheduled 1967-12-[address] [facility] examination Medical Center (regime/therapy) [code = 681159368] Future Scheduled 1967-12-31 Urine screening for [facility] 00:00:00 protein (procedure) Medical Center [code = 421093711] Future Scheduled 1967-12-31 DIABETIC EYE EXAM [code [facility] 00:00:00 = DIABETIC EYE EXAM] Medical Center Future Scheduled 1967-12-[address] [facility]00 examination Medical Center (regime/therapy) [code = 138640757] Future Scheduled 1967-12-31 Urine screening for [facility] 00:00:00 protein (procedure) Medical Center [code = 289020267] Future Scheduled 1967-12-31 DIABETIC EYE EXAM [code [facility] 00:00:00 = DIABETIC EYE EXAM] Medical Center Future Scheduled 1967-12-[address] [facility] 00[facility]:00 examination Medical Center (regime/therapy) [code = 322328056] Future Scheduled 1967-12-31 Urine screening for [facility] 00:00:00 protein (procedure) Medical Center [code = 868263487] Future Scheduled 1967-12-31 DIABETIC EYE EXAM [code [facility] 00:00:00 = DIABETIC EYE EXAM] Medical Center Future Scheduled 1967-12-[address] [facility] 00:[facility]00 examination Medical Center (regime/therapy) [code = 098290825] Future Scheduled 1967-12-31 Urine screening for [facility] 00:00:00 protein (procedure) Medical Center [code = 403407507] Future Scheduled 1967-12-31 DIABETIC EYE EXAM [code [facility] 00:00:00 = DIABETIC EYE EXAM] Medical Center Future Scheduled 1967-12-[address] [facility] 00:[facility]:00 examination Medical Center (regime/therapy) [code = 463750627] Future Scheduled 1967-12-31 Urine screening for [facility] 00:00:00 protein (procedure) Medical Center [code = 795987565] Future Scheduled 1958-07-02 COVID-19 VACCINE (#1) [facility] 00:00:00 [code = COVID-[address] VACCINE (#1)] Future Scheduled 1958-07-02 COVID-19 VACCINE (#1) [facility] 00:00:00 [code = COVID-[address] VACCINE (#1)] Future Scheduled 1958-07-02 COVID-19 VACCINE (#1) [facility] 00:00:00 [code = COVID-[address] VACCINE (#1)] Future Scheduled 1958-07-02 COVID-19 VACCINE (#1) [facility] 00:00:00 [code = COVID-[address] VACCINE (#1)] Future Scheduled 1958-07-02 COVID-19 VACCINE (#1) [facility] 00:00:00 [code = COVID-[address] VACCINE (#1)] Future Scheduled 1957 Screening for malignant [facility] 00:00:00 neoplasm of colon Medical Ce nter (procedure) [code = 318391518] Future Scheduled 1957 Screening for malignant [facility] 00:00:00 neoplasm of colon Medical Ce nter (procedure) [code = 887066647] Future Scheduled 1957 Screening for malignant [facility] 00:00:00 neoplasm of colon Medical Ce nter (procedure) [code = 978548197] Future Scheduled 1957 Screening for malignant [facility] 00:00:00 neoplasm of colon Medical Ce nter (procedure) [code = 163671197] Future Scheduled 1955 Sigmoidoscopy [code = [facility] 00:[facility] S[facility]oidoscopy] [facility] Future Scheduled 1957 CT Colonography (combo) [facility] 00:00:00 [code = CT Colonography [facility] (combo)] Future Scheduled 1957 Screening for malignant [facility] 00:00:00 neoplasm of colon Medical Ce nter (procedure) [code = 001657499] Future Scheduled 1957 Screening for malignant [facility] 00:00:00 neoplasm of colon Medical Ce nter (procedure) [code = 126129113] Future Scheduled 1957 Screening for malignant [facility] 00:00:00 neoplasm of colon Medical Ce nter (procedure) [code = 872505044] Future Scheduled 1957 Screening for malignant [facility] 00:00:00 neoplasm of colon Medical Ce nter (procedure) [code = 962370728] Future Scheduled 1955 Sigmoidoscopy [code = [facility] 00:[facility] Sigmoidoscopy] [facility] Cent[facility] Future Scheduled 1957 CT Colonography (combo) [facility] 00:00:00 [code = CT Colonography [facility] (combo)] Future Scheduled 1957 Screening for malignant [facility] 00:00:00 neoplasm of colon Medical Ce nter (procedure) [code = 089028741] Future Scheduled 1957 Screening for malignant [facility] 00:00:00 neoplasm of colon Medical Ce nter (procedure) [code = 844485317] Future Scheduled 1957 Screening for malignant [facility] 00:00:00 neoplasm of colon Medical Ce nter (procedure) [code = 819682120] Future Scheduled 1957 Screening for malignant [facility] 00:00:00 neoplasm of colon Medical Ce nter (procedure) [code = 159188546] Future Scheduled 1955 Sigmoidoscopy [code = [facility] 00:00:[facility] Sigmoidoscopy] Medical Cente r Future Scheduled 1957 CT Colonography (combo) [facility] 00:00:00 [code = CT Colonography [facility] (combo)] Future Scheduled 1957 Screening for malignant [facility] 00:00:00 neoplasm of colon Medical Ce nter (procedure) [code = 194380156] Future Scheduled 1957 Screening for malignant [facility] 00:00:00 neoplasm of colon Medical Ce nter (procedure) [code = 224136181] Future Scheduled 1957 Screening for malignant [facility] 00:00:00 neoplasm of colon Medical Ce nter (procedure) [code = 382711032] Future Scheduled 1957 Screening for malignant [facility] 00:00:00 neoplasm of colon Medical Ce nter (procedure) [code = 634442384] Future Scheduled 1955 Sigmoidoscopy [code = [facility] 00:[facility] Sigmoidoscopy] Medical Cente r Future Scheduled 1957 CT Colonography (combo) [facility] 00:00:00 [code = [facility] Future Scheduled 1957 Screening for malignant [facility] 00:00:00 neoplasm of colon Medical Ce nter (procedure) [code = 008358994] Future Scheduled 1957 Screening for malignant [facility] 00:00:00 neoplasm of colon Medical Ce nter (procedure) [code = 840935250] Future Scheduled 1957 Screening for malignant [facility] 00:00:00 neoplasm of colon Medical Ce nter (procedure) [code = 114003202] Future Scheduled 1957 Screening for malignant [facility] 00:00:00 neoplasm of colon Medical Ce nter (procedure) [code = 397470164] Future Scheduled 1955 Sigmoidoscopy [code = [facility] 00:00:[facility] Sigmoidoscopy] Medical Cente r Future Scheduled 1955 CT Colonography (combo) [facility] 00:00:00 [code = CT [facility] (combo)] Encounters Start End Encounter Admission Attending Care Care Encounter Source Date/Time Date/Time Type Type Clinicians Facility Department ID 2021-07-27 Outpatient NIDHI CORDOVA [id number] [facility] 10:12:17 ADDY mclaughlin [facility] 2021-03-10 Outpatient MADELIN TAMEZ Surgery [id number] SLE 02:24:37 BOBY 2019-11-05 Inpatient KRYSTAL ANGELA JARQUIN [facility] [id number] [facility] 13:03:00 2022-12-14 2022-12-14 Outpatient SFA SFA [id number] [facility] 08:15:07 08:15:07 0712 F Wisner 2022-12-07 2022-12-07 Outpatient SFA SFA [id number] [facility] 09:46:02 09:46:02 0705 F Wisner 2022-11-23 2022-11-23 Outpatient SFA SFA [id number] Craig 09:07:47 09:07:47 0621 F Wisner 2022-11-16 2022-11-16 Outpatient SFA SFA [id number] Craig 07:57:13 07:57:13 0614 F Wisner 2022-11-09 2022-11-09 Outpatient SFA SFA [id number] Craig 15:47:34 15:47:34 0607 F Wisner 2022-04-21 2022-04-21 [facility] [id number] [facility] 08:07:00 10:08:[address] [facility] 2022-04-21 2022-04-21 [facility] 1.2.840.114 [id number] Univers 08:07:00 10:08:00 Encounter Addy MUHAMMAD 350.1.13.10 ity [place] [id number] [facility] [address] 2022-04-21 2022-04-21 Surgery [facility] 1.2.840.114 [id number] Univers 09:10:00 09:48:00 Addy MUHAMMAD 350.1.13.10 i ty [place] [id number] [facility] [address] 2022-04-19 2022-04-19 Piano Tuner Melody, Des Lab Main [facility] 1.2.8 40.114 [id number] Univers 15:30:00 15:45:00 Visit Addy Gordon 350.1.1 3.10 [place] max [place] [id number] Al dical NAL [address] [facility] 2022-04-19 2022-04-19 [facility] [id number] Univers 15:30:00 15:30:00 ADDY arnoldo [facility] 2022-04-19 2022-04-19 Orders Doctor IKER 1.2.840.114 [id number] Univers 00:00:00 00:00:00 Only Unassigned, DO 350.1.13.10 ity of [place] [facility] 4.2.7.2.686 Shay as [id number] [facility] [address] 2021-05-13 2021-05-13 Outpatient [facility] [id number] Univers 06:57:00 09:35:00 ADDY mclaughlin [facility] 2021-05-13 2021-05-13 Hospital [facility] 1.2.840.114 [id number] Univers 06:57:00 09:35:00 Encounter Addy MUHAMMAD 350.1.13.10 ity [place] [id number] [facility] [address] [place] 2021-05-13 2021-05-13 Surgery [facility] 1.2.840.114 [id number] Univers 08:06:00 08:42:00 Addy MUHAMMAD 350.1.13.10 i ty [place] [id number] [facility] [address] 2021-05-11 2021-05-11 Outpatient [facility] [id number] Univers 15:00:00 15:00:00 ADDY mclaughlin [facility] 2021-05-11 2021-05-11 Laboratory Only, Adc Test [facility] 1.2.840. 114 [id number] Univers 14:18:45 14:33:45 Only Addy Gordon 350.1.1 3.10 [place] [id number] [facility] [address] 2021-05-06 2021-05-06 Piano Tuner Melody, Adc Lab Main [facility] 1.2.8 40.114 [id number] Univers 16:27:21 16:42:21 Visit Addy Gordon [facility] 4.2.7.2.686 Daya HESTERALFREDO [id number] [address] 2021-05-06 2021-05-06 Outpatient Brandon GORDON [facility] [id number] Univers 16:15:00 16:15:00 ADDY mclaughlin [facility] 2020-04-14 2020-04-14 Outpatient EL [facility] [id number] [facility] 00:00:00 00:00:00 2020-04-14 2020-04-14 Outpatient EL [facility] [id number] [facility] 00:00:00 00:00:00 2020-03-10 2020-03-10 Outpatient EL [facility] [id number] [facility] 00:00:00 00:00:00 2020-02-05 2020-02-05 Outpatient EL [facility] [id number] [facility] 00:00:00 00:00:00 2017-12-18 2017-12-18 [facility] 14 [id number] Common 14:00:00 14:00:[address] [facility] 2017-10-23 2017-10-23 [facility] 14 [id number] Common 15:32:00 15:32:[address] [facility] 2017-10-20 2017-10-20 [facility] 13 [id number] Common 10:30:00 10:30:[address] [facility] 2017-10-02 2017-10-02 [facility] 13 [id number] Common 10:30:00 10:30:[address] [facility] Results Test Description Test Time Test Comments Results Result Comments Source POCT GLUCOSE (AUTOMATED) 2022-04-21 14:33:10 Test Item Value Reference Range Interpretation Comme nts POCT GLU (test code = 0248037772) 244 mg/dL 70-110 H Lab Interpretation (test code = 20834-0) [facility]normal [facility]2022-[facility]21 14:33:10 Test Item Value Reference Range Interpretation Comments POCT GLU (test code = 8080688510) 244 mg/dL 70-110 H Lab Interpretation (test code = Abnormal 07304-4) [facility]. METABOLIC PANEL (60548)2022-04-19 22:28:30 Test Item Value Reference Range Interpretation Comments NA (test code = 138 mmol/L 135-145 7853852494) K (test code = 4.8 mmol/L 3.5-5.0 2349754231) CL (test code = 108 mmol/L 98-108 6760825387) CO2 TOTAL (test code = 22 mmol/L 23-31 L 3941775665) AGAP (test code = 2-16 5422991897) BUN (test code = 27 mg/dL 7-23 H 6803729433) GLUCOSE (test code = 319 mg/dL 70-110 H 7675921202) CREATININE (test code = 1.74 mg/dL 0.60-1.25 H 2502522638) TOTAL BILI (test code = 0.5 mg/dL 0.1-1.7 0911386441) CALCIUM (test code = 8.4 mg/dL 8.6-10.6 L 4164314507) T PROTEIN (test code = 6.5 g/dL 6.3-8.2 9718874005) ALBUMIN (test code = 3.5 g/dL 3.5-5.0 2039051144) ALK PHOS (test code = 100 U/L 34-122 1312817548) ALTv (test code = 20 U/L 5-50 2-6) AST(SGOT) (test code = 20 U/L 13-40 3287149813) eGFR (test code = mL/min/1.73m2 8884522086) DARREN (test code = DARREN) Association of [...] tests). Lab Interpretation Abnormal (test code = 85548-5) [facility] WITH [id number] 21:42:01 Test Item Value Reference Range Interpretation Comments WBC (test code = See_Comment [Automated 8090-2) message] The sy stem which generated this result transmitted reference range : 4.20 - 10.70 10*3/?L. The reference range was not used to interpret this result as normal/abnormal . RBC (test code = See_Comment L [Automated 309-8) message] The sy stem which generated this [...] RDW-SD (test code = 42.3 fL 38.5-51.6 61421-4) RDW-CV (test code = 13.1 % 12.1-15.4 788-0) PLT (test code = See_Comment [Automated 777-3) message] The sy stem which generated this result transmitted reference range : 150 - 328 10*3/ ?L. The reference r ramiro was not used to interpret this result as normal/abnormal . MPV (test code = 10.8 fL 9.8-13.0 78301-1) NRBC/100 WBC (test See_Comment [Automat ed code = 6049640575) message] The system which generated this result transmitted reference range : 0.0 - 10.0 /100 WBCs. The refer ence range was not u sed to interpret th is result as normal/abnormal . NRBC x10^3 (test code See_Comment [Auto mated = 5005276346) message] The s ystem which generated this result transmitted reference range : 10*3/?L. The reference range was not used to interpret this result as normal/abnormal . GRAN MAT (NEUT) % 60.9 % (test code = 770-8) IMM GRAN % (test code 0.80 % = 6317410575) LYMPH % (test code = 28.1 % 736-9) MONO % (test code = 6.9 % 5905-5) EOS % (test code = 2.5 % 713-8) BASO % (test code = 0.8 % 706-2) GRAN MAT x10^3(ANC) 3.64 10*3/uL 1.99-6.95 (test code = 3443146816) IMM GRAN x10^3 (test 0.05 10*3/uL 0.00-0.06 code = 6760089750) LYMPH x10^3 (test code 1.68 10*3/uL 1.09-3.23 = 731-0) MONO x10^3 (test code 0.41 10*3/uL 0.36-1.02 = 742-7) EOS x10^3 (test code = 0.15 10*3/uL 0.06-0.53 711-2) BASO x10^3 (test code 0.05 10*3/uL 0.01-0.09 = 704-7) Lab Interpretation Abnormal (test code = 27157-8) [facility] GLUCOSE (AUTOMATED)2021-05-13 13:21:11 Test Item Value Reference Range Interpretation Comments POCT GLU (test code = 2302971157) 212 mg/dL 70-110 H Lab Interpretation (test code = Abnormal 20870-3) [facility] GLUCOSE (AUTOMATED)2021-05-13 13:21:11 Test Item Value Reference Range Interpretation Comments POCT GLU (test code = 8024534837) 212 mg/dL 70-110 H Lab Interpretation (test code = Abnormal 20700-9) [facility] [id number] 15:20:00Reason for exam:- >abnormal [facility] : 1955 Sex: MFluoroscopic unit utilized for a procedure performed in the OR. No interpretation was requested. Refer tothe operative report for findings. Refer to PACS for patient radiation dose information.POCT-GLUCOSE [id number] 13:12:00 Test Item Value Reference Range Interpretation Comments POC-GLUCOSE METER 96 mg/dL 70-110 : TESTED A T [facility] 6720 (BEAKER) (test code = MARY Taylor [facility], 1538) [address]: Preschool Lead Teacher/Techni alyssa ID = [id number] for OFELIAALVARO GUADALUPE SARS-COV2/RT-PCR ([facility])2020-04-14 19:15:00 Test Item Value Reference Range Interpretation Comments SARS-COV2/RT-PCR (test Negative Not Detected, Negative, code = 5445016) See external report for linked test SARS-COV-2 PERFORMING LAB [facility] LIZZETTE (test code = 0814112) Negative result for this test determines that [...] of the Act.Fact Sheet for Healthcare Prov iders:https://www.S[employer]Gard.Yasuu/sites/default/files/product/documents/Fact_Sheet_HC _Pzbzhdbho_Nbzi_VFCE-LrF-1.pdfFact Sheet for Healthcare Patients:https://www.S[employer].Yasuu/sites/default/files/product/docume nts/Smjd_Wipte_Wqmrdbxa_Nboj_DCPA-NyI-4.pdfPerforming Laboratory:[facility], [place] [address]JRQQ-CHCEFRE METER 2019-11-07 11:55:00 Test Item Value Reference Range Interpretation Comments POC-GLUCOSE METER 109 mg/dL 70-110 : TESTED A T [facility] 6720 (BEAKER) (test code = MARY Taylor [place], 1538) [address]: Preschool Lead Teacher/Techni alyssa ID = [id number] for ELISA QUINN POCT-GLUCOSE [id number] 07:45:00 Test Item Value Reference Range Interpretation Comments POC-GLUCOSE METER 106 mg/dL 70-110 : TESTED A T [facility] 6720 (BEAKER) (test code = MARY Taylor [facility], 1538) 00977: Preschool Lead Teacher/Techni alyssa ID = [id number] for ELISA QUINN BASIC METABOLIC [id number] 05:46:00 Test Item Value Reference Range Interpretation [...] S NOT APPLICABLE FOR DIALYSIS PATIEN TS. Preschool Lead Teacher ID - [id number] 05:45:00 Test Item Value Reference Range Interpretation Comments MAGNESIUM (BEAKER) (test code = 1.7 mg/dL 1.6-2.6 627) Preschool Lead Teacher ID - LAHEPATIC FUNCTION [id number] 05:45:00 Test Item Value Reference Range Interpretation [...] (test code = 10 U/L 6-55 347) Preschool Lead Teacher ID - LACBC W/PLT COUNT & AUTO [id number] 05:09:00 Test Item Value Reference Range Interpretation [...] PERCENT (BEAKER) (test code = 2801) POCT-GLUCOSE [id number] 20:52:00 Test Item Value Reference Range Interpretation Comments POC-GLUCOSE METER 113 mg/dL 70-110 H : TESTED A T [facility] 6720 (BEAKER) (test code = [facility], 1538) 21805: Preschool Lead Teacher/Techni alyssa ID = [id number] for MARIE OLIVER POCT-GLUCOSE [id number] 16:32:00 Test Item Value Reference Range Interpretation Comments POC-GLUCOSE METER 124 mg/dL 70-110 H : TESTED A T [facility] 6720 (BEAKER) (test code = [facility], 1538) 63378: Preschool Lead Teacher/Techni alyssa ID = [id number] for KEIRY BALL ELISA [place], [id number] 13:07:00Reason for exam:->abnormal imagingFINAL REPORT A fluoroscopic unit was utilized for a procedure performed in the operating room. No interpretation was requested. Please refer to the operative report regarding findings. Please refer to PACS for patient radiation dose information. Signed: Kathrine Bullard MDRephector Verified Date/Time: 11/06/2019 13:07:58 Reading Location: [facility] Radiology Reading Room -GLUCOSE [id number] 07:41:00 Test Item Value Reference Range Interpretation Comments POC-GLUCOSE METER 132 mg/dL 70-110 H : TESTED A T [facility] 6720 (BEAKER) (test code = [facility], 1538) 28813: Preschool Lead Teacher/Techni alyssa ID = [id number] for ELISA QUINN [id number] 06:34:00 Test Item Value Reference Range Interpretation Comments MAGNESIUM (BEAKER) (test code = 1.6 mg/dL 1.6-2.6 627) Preschool Lead Teacher ID - SOWMYA MBASIC METABOLIC [id number] 06:34:00 Test Item Value Reference Range Interpretation [...] S NOT APPLICABLE FOR DIALYSIS PATIEN TS. Preschool Lead Teacher ID - SOWMYA MHEPATIC FUNCTION [id number] 06:34:00 Test Item Value Reference Range Interpretation [...] (test code = 14 U/L 6-55 347) Preschool Lead Teacher ID - SOWMYA MCBC W/PLT COUNT & AUTO [id number] 06:29:00 Test Item Value Reference Range Interpretation [...] PERCENT (BEAKER) (test code = 2801) POCT-GLUCOSE [id number] 23:18:00 Test Item Value Reference Range Interpretation Comments POC-GLUCOSE METER 126 mg/dL 70-110 H : TESTED A T [facility] 6720 (BEAKER) (test code = [place], 1538) [address]: Preschool Lead Teacher/Techni alyssa ID = [id number] for BRIAN LYON HEMOGLOBIN [id number] 20:09:00 Test Item Value Reference Range Interpretation Comments HEMOGLOBIN A1C (BEAKER) (test code = 8.3 % 4.3-6.1 H 368) SARS-COV2/RT-PCR ([facility])2019-11-05 19:00:00 Test Item Value Reference Range Interpretation Comments SARS-COV2/RT-PCR (test Not Detected Not Detected, Negative code = 0622679) SARS-COV-2 PERFORMING LAB [facility] (test code = 6647085) Negative results do not preclude SARS-CoV-2 infection [...] of the Act.Fact Sheet for Healthcare Pro viders:https://www.SIRION BIOTECH.Yasuu/Documents/Xpert%20Xpress%20SARS%20CoV-2/Fact%20Sh eets/302-3802%52UHTH-SSF-7%20HEALTHCARE%20PROVIDERS%20FACT%20SHEET.pdfFact Sheet for Healthcare Patients:https://www.LikeList.Yasuu/Documents/Xpert%20Xpress%20SARS%20CoV-2/Fact%20Sheets/302-3801%20SARS-COV -2%20PATIENT%20FACT%20SHEET.pdfPerforming Laboratory:[facility], [place] [address]COFW-PHRKHST [id number] 16:49:00 Test Item Value Reference Range Interpretation Comments POC-GLUCOSE METER 230 mg/dL 70-110 H : TESTED A T [facility] 6720 (BEAKER) (test code [facility], = 1538) 19123: Preschool Lead Teacher/Techni alyssa ID = [id number] for VANNA DIXON [id number] 15:37:00 Test Item Value Reference Range Interpretation Comments MAGNESIUM (BEAKER) (test code = 1.7 mg/dL 1.6-2.6 627) Preschool Lead Teacher ID - BSBASIC METABOLIC [id number] 15:37:00 Test Item Value Reference Range Interpretation [...] S NOT APPLICABLE FOR DIALYSIS PATIEN TS. Preschool Lead Teacher ID - BSHEPATIC FUNCTION [id number] 15:37:00 Test Item Value Reference Range Interpretation [...] (test code = 16 U/L 6-55 347) Preschool Lead Teacher ID - [id number] 15:27:00 Test Item Value Reference Range Interpretation [...] mechanical heart valves.CBC W/PLT COUNT & AUTO [id number] 15:14:00 Test Item Value Reference Range Interpretation [...]
[2023-01-16] MEDS ORDERED: ASPIRIN 81 MG CHEWABLE TABLET ONE (12:02)
[2023-01-16 12:07] LABS: Absolute Lymphocytes (CBC) 1.2 K/uL (0.7-4.9); Lymphocytes % 19.8 % (15.3-44.8); MPV 8.8 fL (7.6-11.3); Platelets 195 thou/uL (152-406); RBC Red Blood Cell Count 3.66 M/uL (4.33-5.43)
[2023-01-16 12:09] LABS: Protime INR 1.01
[2023-01-16 12:29] LABS: Magnesium 1.9 mg/dL (1.6-2.4); Potassium 4.5 mEq/L (3.5-5.1)
--- NOTE | 2023-01-16 12:51 | RAD REPORT ---
EXAM DESCRIPTION: RADChest Single View01/16/2023 12:17 pm CLINICAL HISTORY: SWELLING COMPARISON: Chest Single View dated 07/11/2022; Chest Single View dated 12/17/2021; Chest Pa And Lat (2 Views) dated 03/19/2020; Chest Single View dated 04/14/2019 TECHNIQUE: Portable AP view of the chest. FINDINGS: The lungs are clear.Stable bibasilar atelectatic changes. No pneumothorax or effusion. The cardiomediastinal contours are unremarkable. IMPRESSION: No acute cardiopulmonary process.
[2023-01-16] MEDS ORDERED: FUROSEMIDE 40 MG/4 ML VIAL ONE (13:06)
[2023-01-16] MEDS ORDERED: HYDRALAZINE HCL 20 MG/ML VIAL ONE (14:29)
[2023-01-16] MEDS ORDERED: HYDRALAZINE HCL 25 MG TABLET ONE (17:09)
--- NOTE | 2023-01-16 17:49 | ER ---
Nurse's Notes [facility] Name: Sabra Rodriguez Jr Age: 67 yrs Sex: Male : 1955 Arrival Date: 01/16/2023 Time: 11:02 Bed 7 Private MD: Diagnosis: Hypertensive urgency Presentation: 01/16 11:24 Chief complaint: Patient states: Sent from Dr Juarez's office for elevated BP, pt reports ph feeling "foggy" also reports dizziness, denies headache, or chest pain. Hx of HTN, did take BP meds this morning. Coronavirus screen: Vaccine status: Patient reports receiving the 2nd dose of the covid vaccine. Ebola Screen: No symptoms or risks identified at this time. Initial Sepsis Screen: Does the patient meet any 2 criteria? No. Patient's initial sepsis screen is negative. Does the patient have a suspected source of infection? No. Patient's initial sepsis screen is negative. Risk Assessment: Do you want to hurt yourself or someone else? Patient reports no desire to harm self or others. Onset of symptoms was January 16, 2023. 11:24 Method Of Arrival: Ambulatory ph 11:24 Acuity: KRISTINA 2 ph Historical: - Allergies: 11:26 No Known Allergies; ph - Home Meds: 16:22 Klor-Con 10 10 mEq Oral tablet, extended release daily [Active]; furosemide 20 mg Oral ld1 tablet 2 times per day [Active]; carvedilol 12.5 mg oral tablet 2 times per day [Active]; Farxiga 10 mg oral tablet daily [Active]; cetirizine 10 mg oral Tablet,disintegrating daily [Active]; amoxicillin 500 mg Oral tablet 3 times per day [Active]; - PMHx: 11:26 Diabetes - NIDDM; Hypertension; Vision problems; ph - PSHx: 11:26 Appendectomy; Cholecystectomy; ph - Immunization history:: Adult Immunizations unknown. - Social history:: Smoking status: Patient denies any tobacco usage or history of. Screenin:06 [facility] ED Fall Risk Assessment (Adult) History of falling in the last 3 months, ld1 including since admission No falls in past 3 months (0 pts). Abuse screen: Denies threats or abuse. Denies injuries from another. Nutritional screening: No deficits noted. Tuberculosis screening: No symptoms or risk factors identified. Assessment: 12:06 General: Appears in no apparent distress. comfortable, Behavior is calm, cooperative, ld1 appropriate for age. Pain: Denies pain. Neuro: Level of Consciousness is awake, alert, obeys commands, Oriented to person, place, time, situation. Cardiovascular: Capillary refill < 3 seconds Patient's skin is warm and dry. Rhythm is sinus rhythm. Respiratory: Airway is patent Respiratory effort is even, unlabored. GI: Abdomen is round obese. : No signs and/or symptoms were reported regarding the genitourinary system. EENT: No signs and/or symptoms were reported regarding the EENT system. Derm: No signs and/or symptoms reported regarding the dermatologic system. Musculoskeletal: No signs and/or symptoms reported regarding the musculoskeletal system. 13:13 Reassessment: Patient appears in no apparent distress at this time. No changes from ld1 previously documented assessment. Patient and/or family updated on plan of care and expected duration. Pain level reassessed. Patient is alert, oriented x 3, equal unlabored respirations, skin warm/dry/pink. 15:02 Reassessment: Patient appears in no apparent distress at this time. No changes from ld1 previously documented assessment. Patient and/or family updated on plan of care and expected duration. Pain level reassessed. Patient is alert, oriented x 3, equal unlabored respirations, skin warm/dry/pink. 18:04 Reassessment: Patient appears in no apparent distress at this time. No changes from ld1 previously documented assessment. Patient and/or family updated on plan of care and expected duration. Pain level reassessed. Patient is alert, oriented x 3, equal unlabored respirations, skin warm/dry/pink. Vital Signs: 11:24 BP 206 / 84; Pulse 64; Resp 18; Temp 98; Pulse Ox 97% on R/A; Weight 119.75 kg; Height ph 5 ft. 6 in. ; 12:06 BP 190 / 75; Pulse 61; Resp 18; Pulse Ox 99% on R/A; ld1 13:13 BP 202 / 89; Pulse 63; Resp 18; Pulse Ox 99% on R/A; ld1 14:03 BP 197 / 90; Pulse 59; Resp 18; Pulse Ox 98% on R/A; ld1 15:02 BP 172 / 83; Pulse 64; Resp 18; Pulse Ox 98% on R/A; ld1 15:33 BP 161 / 83; Pulse 62; Resp 18; Pulse Ox 97% on R/A; ld1 16:23 BP 206 / 84; Pulse 61; Resp 18; Pulse Ox 97% on R/A; ld1 17:39 BP 190 / 77; Pulse 61; Resp 18; Pulse Ox 97% on R/A; ld1 18:04 BP 215 / 76; Pulse 64; Resp 18; Pulse Ox 98% on R/A; ld1 11:24 Body Mass Index 42.61 (119.75 kg, 167.64 cm) ph ED Course: 11:06 Patient arrived in ED. im 11:08 [facility]yes[facility] Nguyen [facility]-C [facility] snw 11:08 Iftikhar Pereira DO is Attending Physician. snw 11:26 Triage completed. ph 11:26 Arm band placed on. ph 11:45 Bonnie Pereira, RN is Primary Nurse. ld1 12:06 Patient has correct armband on for positive identification. Placed in gown. Bed in low ld1 position. Call light in reach. Side rails up X2. monitor car operator on. Pulse ox on. NIBP on. Door closed. Noise minimized. Warm blanket given. 12:06 No provider procedures requiring assistance completed. Inserted saline lock: 20 gauge ld1 in right antecubital area, using aseptic technique. Blood collected. 12:19 XRAY Chest (1 view) In Process Unspecified. EDMS 18:05 IV discontinued, intact, bleeding controlled, No redness/swelling at site. ld1 Administered Medications: 11:53 Drug: Aspirin PO Chewable Tablet 324 mg Route: PO; ld1 13:00 Drug: Furosemide IVP 20 mg Route: IVP; Site: right antecubital; ld1 14:23 Drug: hydrALAZINE IVP 10 mg Route: IVP; Site: right antecubital; ld1 17:00 Drug: HydrALAZINE PO 25 mg Route: PO; ld1 Medication: 12:06 VIS not applicable for this client. ld1 Outcome: 17:49 Discharge ordered by . snw 18:05 Discharged to home ambulatory, with family. ld1 18:05 Condition: stable 18:05 Discharge instructions given to patient, family, Instructed on discharge instructions, follow up and referral plans. medication usage, Demonstrated understanding of instructions, follow-up care, medications, Prescriptions given X 1. 18:05 Patient left the ED. ld1 Signatures: Dispatcher [employer] EDAyesha Hester, ARTHUR KOEHLER-Kaley Coyne RN RN Bonnie Pereira RN RN ld1 Charity Frye
--- NOTE | 2023-01-16 17:49 | EDPHYS ---
Physician Documentation [facility] Name: Sabra Rodriguez Jr Age: 67 yrs Sex: Male : 1955 Arrival Date: 01/16/2023 Time: 11:02 Bed 7 Private MD: ED Physician Iftikhar Pereira HPI: 01/16 11:47 This 67 yrs old Male presents to ER via Ambulatory with complaints of High snw Blood Pressure - sent by Dr. Juarez. 11:47 The patient has elevated blood pressure and discovered this at a physician's office, sn and sent to the emergency department for evaluation. Onset: The symptoms/episode began/occurred gradually. Associated signs and symptoms: Pertinent positives: dizziness, lightheadedness, edema. Severity of symptoms: At its worst the blood pressure was 206 mm Hg. The patient has experienced similar episodes in the past. The patient has been recently seen by a physician: the patient's primary care provider, Dr. Juarez. Sees Dr. Ferris. Historical: - Allergies: 11:26 No Known Allergies; ph - Home Meds: 16:22 Klor-Con 10 10 mEq Oral tablet, extended release daily [Active]; furosemide 20 mg Oral ld1 tablet 2 times per day [Active]; carvedilol 12.5 mg oral tablet 2 times per day [Active]; Farxiga 10 mg oral tablet daily [Active]; cetirizine 10 mg oral Tablet,disintegrating daily [Active]; amoxicillin 500 mg Oral tablet 3 times per day [Active]; - PMHx: 11:26 Diabetes - NIDDM; Hypertension; Vision problems; ph - PSHx: 11:26 Appendectomy; Cholecystectomy; ph - Immunization history:: Adult Immunizations unknown. - Social history:: Smoking status: Patient denies any tobacco usage or history of. ROS: 11:46 Constitutional: Negative for fever, chills, and weight loss, Eyes: Negative for injury, snw pain, redness, and discharge, ENT: Negative for injury, pain, and discharge, Neck: Negative for injury, pain, and swelling, Cardiovascular: Negative for chest pain, palpitations, and edema. 11:46 Abdomen/GI: Negative for abdominal pain, nausea, vomiting, diarrhea, and constipation, Back: Negative for injury and pain, : Negative for injury, bleeding, discharge, and swelling. 11:46 Skin: Negative for injury, rash, and discoloration. 11:46 Respiratory: Positive for orthopnea, shortness of breath, on exertion. 11:46 MS/extremity: Positive for swelling. 11:46 Neuro: Positive for dizziness. Exam: 11:45 Constitutional: This is a well developed, well nourished patient who is awake, alert, snw and in no acute distress. Head/Face: Normocephalic, atraumatic. Eyes: Pupils equal round and reactive to light, extra-ocular motions intact. Lids and lashes normal. Conjunctiva and sclera are non-icteric and not injected. Cornea within normal limits. Periorbital areas with no swelling, redness, or edema. ENT: Nares patent. No nasal discharge, no septal abnormalities noted. Tympanic membranes are normal and external auditory canals are clear. Oropharynx with no redness, swelling, or masses, exudates, or evidence of obstruction, uvula midline. Mucous membranes moist. Neck: Trachea midline, no thyromegaly or masses palpated, and no cervical lymphadenopathy. Supple, full range of motion without nuchal rigidity, or vertebral point tenderness. No Meningismus. Chest/axilla: Normal chest wall appearance and motion. Nontender with no deformity. No lesions are appreciated. Cardiovascular: Regular rate and rhythm with a normal S1 and S2. No gallops, murmurs, or rubs. Normal PMI, no JVD. No pulse deficits. lower ext edema 11:45 Abdomen/GI: Soft, non-tender, with normal bowel sounds. No distension or tympany. No guarding or rebound. No evidence of tenderness throughout. Back: No spinal tenderness. No costovertebral tenderness. Full range of motion. Skin: Warm, dry with normal turgor. Normal color with no rashes, no lesions, and no evidence of cellulitis. Neuro: Awake and alert, GCS 15, oriented to person, place, time, and situation. Cranial nerves II-XII grossly intact. Motor strength 5/5 in all extremities. Sensory grossly intact. Cerebellar exam normal. Normal gait. Psych: Awake, alert, with orientation to person, place and time. Behavior, mood, and affect are within normal limits. 11:45 Respiratory: the patient does not display signs of respiratory distress, Respirations: shallow respirations, Breath sounds: bronchial sounds, that are moderate, are heard in the left posterior lower lobe and right posterior lower lobe. 11:45 Musculoskeletal/extremity: Extremities: grossly normal except: swelling. Vital Signs: 11:24 BP 206 / 84; Pulse 64; Resp 18; Temp 98; Pulse Ox 97% on R/A; Weight 119.75 kg; Height ph 5 ft. 6 in. ; 12:06 BP 190 / 75; Pulse 61; Resp 18; Pulse Ox 99% on R/A; ld1 13:13 BP 202 / 89; Pulse 63; Resp 18; Pulse Ox 99% on R/A; ld1 14:03 BP 197 / 90; Pulse 59; Resp 18; Pulse Ox 98% on R/A; ld1 15:02 BP 172 / 83; Pulse 64; Resp 18; Pulse Ox 98% on R/A; ld1 15:33 BP 161 / 83; Pulse 62; Resp 18; Pulse Ox 97% on R/A; ld1 16:23 BP 206 / 84; Pulse 61; Resp 18; Pulse Ox 97% on R/A; ld1 17:39 BP 190 / 77; Pulse 61; Resp 18; Pulse Ox 97% on R/A; ld1 18:04 BP 215 / 76; Pulse 64; Resp 18; Pulse Ox 98% on R/A; ld1 11:24 Body Mass Index 42.61 (119.75 kg, 167.64 cm) ph MDM: 11:29 Patient medically screened. snw 17:49 Differential diagnosis: hypertensive crisis, CVA, hypertension. Data reviewed: vital snw signs, nurses notes, lab test result(s), EKG, radiologic studies, plain films. I considered the following discharge prescriptions or medication management in the emergency department Medications were administered in the Emergency Department. See MAR. Care significantly affected by the following chronic conditions: Diabetes, Hypertension. Counseling: I had a detailed discussion with the patient and/or guardian regarding: the historical points, exam findings, and any diagnostic results supporting the discharge/admit diagnosis, lab results, radiology results, the need for outpatient follow up, to return to the emergency department if symptoms worsen or persist or if there are any questions or concerns that arise at home. Response to treatment: the patient's symptoms have mildly improved after treatment, the patient's symptoms have markedly improved after treatment. Special discussion: Based on the history and exam findings, there is no indication for further emergent testing or inpatient evaluation. I discussed with the patient/guardian the need to see the primary care provider for further evaluation of the symptoms. Nephrology. 01/16 11:44 Order name: Basic Metabolic Panel; Complete Time: 12:33 snw 01/16 11:44 Order name: CBC with Diff; Complete Time: 12:14 snw 01/16 11:44 Order name: Magnesium; Complete Time: 12:33 snw 01/16 11:44 Order name: NT PRO-BNP; Complete Time: 12:33 snw 01/16 11:44 Order name: PT-INR; Complete Time: 12:14 snw 01/16 11:44 Order name: Troponin HS; Complete Time: 12:33 snw 01/16 11:44 Order name: XRAY Chest (1 view); Complete Time: 12:54 snw 01/16 11:44 Order name: EKG; Complete Time: 11:45 snw 01/16 11:44 Order name: Cardiac monitoring; Complete Time: 11:46 snw 01/16 11:44 Order name: EKG - Nurse/Tech; Complete Time: 11:50 snw 01/16 11:44 Order name: IV Saline Lock; Complete Time: 11:53 snw 01/16 11:44 Order name: Labs collected and sent; Complete Time: 11:53 snw 01/16 11:44 Order name: O2 Per Protocol; Complete Time: 11:46 snw 01/16 11:44 Order name: O2 Sat Monitoring; Complete Time: 11:46 w 01/16 11:45 Order name: Misc. Order: please pull results from recent US and labs ; Complete Time: snw 11:50 01/16 16:18 Order name: Misc. Order: Please obtain medication list from pt (now has his phone); snw Complete Time: 16:23 EC:52 Rate is 64 beats/min. Rhythm is regular. QRS interval is prolonged. QT interval is snw normal. T waves are Inverted in lead aVR. Clinical impression: NSR w/ Non-specific ST/T Changes. Administered Medications: 11:53 Drug: Aspirin PO Chewable Tablet 324 mg Route: PO; ld1 13:00 Drug: Furosemide IVP 20 mg Route: IVP; Site: right antecubital; ld1 14:23 Drug: hydrALAZINE IVP 10 mg Route: IVP; Site: right antecubital; ld1 17:00 Drug: HydrALAZINE PO 25 mg Route: PO; ld1 Disposition: 14:53 Co-signature as Attending Physician, Iftikhar Pereira DO I was immediately available on-site ms3 in the Emergency Department for consultation in the care of the patient. Disposition Summary: 01/16/23 17:49 Discharge Ordered Location: Home snw Condition: Stable snw Diagnosis - Hypertensive urgency snw Followup: snw - With: Emergency Department - When: As needed - Reason: Worsening of condition Followup: snw - With: Private Physician - When: 1 - 2 days - Reason: Recheck today's complaints, Continuance of care, Re-evaluation by your physician Discharge Instructions: - Discharge Summary Sheet snw - Hypertension, Adult snw - Chronic Kidney Disease, Adult snw - Form - Blood Pressure Record Sheet snw Forms: - Medication Reconciliation Form snw - Thank You Letter snw - Antibiotic Education snw - Prescription Opioid Use snw - Patient Portal Instructions snw - Leadership Thank You Letter snw Prescriptions: - Hydralazine 25 mg Oral Tablet - take 1 tablet by ORAL route 2 times per day with food; 60 tablet; Refills: 0, snw Product Selection Permitted Signatures: Dispatcher [employer] Ayesha Hernandez FNP-C FNP-Csnw Kaley Chambers RN RN Iftikhar Pereira DO DO ms3 Bonnie Pereira RN RN ld1
[2023-01-16 18:23] VITALS: TEMP 98
[2023-01-16 18:36] VITALS: BP 215/76; O2SAT 98
--- NOTE | 2023-01-17 17:05 | EKG ---
Test Date: 2023-01-16 Test Time: 11:48:37 Dental Instructor: Eric BARRAZA MEASUREMENT RESULTS: Intervals: Rate: 64 AR: 212 QRSD: 164 QT: 448 QTc: 462 Harvel: P: 28 AR: 212 QRS: -70 T: 33 INTERPRETIVE STATEMENTS: Sinus rhythm with 1st degree AV block Right bundle branch block Left anterior fascicular block Bifascicular block Abnormal ECG Compared to ECG 07/11/2022 17:53:37 No significant changes Electronically Signed On 01-17-23 17:03:01 CDT by Gordy Villa
== END 2023-01-16 18:05 | disposition home or self-care (01) ==
LOC: ER 11:02
DX: I16.0 Hypertensive urgency (principal); R42 Dizziness and giddiness; I10 Essential (primary) hypertension
CPT/HCPCS: 85025; 80048; 36415; 83735; 85610; 84484; 83880; 71045; J0360; J1940; 93005

== ENCOUNTER 2023-01-30 12:55 | Inpatient (IN) | payer OTHER ==
--- OUTSIDE RECORDS SUMMARY | 2023-01-30 13:01 | XMS REPORT | Continuity of Care Document ---
:1955 Author Organization [facility] t Address [address] [place] [id number] Care Team Providers Name Role Phone No, Pcp [facility] Primary Care Physician Unavailable ADDY GORDON Attending Clinician Unavailable BOBY TAMEZ Attending Clinician Unavailable ANGELA JARQUIN Attending Clinician Unavailable Addy Gordon MD Attending Clinician Pob, [facility] Lab Main Attending Clinician Unavailable Doctor Unassigned, [facility] Attending Clinician Unavailable Only, Adc Test Attending Clinician Unavailable ADDY GORDON Admitting Clinician Unavailable BOBY TAMEZ Admitting Clinician Unavailable ANGELA JARQUIN Admitting Clinician Unavailable Addy Gordon MD Admitting Clinician Payers Payer Name Policy Type Policy Number Effective Date Expiration Date S ource [facility] [facility] [place] [facility] [id number] 2018 OF STATE 00:00:00 BCBS OS POS/PPO/EPO [id number] 2018 00:00:00 CDC REVIEW [id number] 2019 00:00:00 ZZCDCREVIEW [id number] 2018 2018 00:00:00 00:00:00 Problems Condition Condition Condition Status Onset Resolution Last Treating Co mments Source Name Details Category Date Date Treatment Clinician Date Non-insuli Non-insuli Disease Recurre [facility] dependent dependent 00:00: Medi glenda type 2 type 2 Center diabetes diabetes mellitus mellitus Essential Essential Disease Active [facility] hypertensi hypertensi 11-06 Ananya kes on on 00:00: Medical 00 [place] Acute Acute Disease Recurre [facility] kidney kidney nce 11-06 [facility] injury injury 00:00: Medical [address] [place] [address] Bile leak, Bile leak, Disease Active [facility] postoperat postoperat 11-05 Ananya kes deep deep 00:00: Medical [address] [place] [address] BMI BMI Problem Active Common 40.0-44.9, 40.0-44.9, Sp john adult adult - [facility] Nocturia Nocturia Problem Active Commo n Spirit - [facility] Type 2 Type 2 Problem Active Common diabetes diabetes Spirit mellitus mellitus - [facility] with with St hyperglyce hyperglyce [facility] HTN, goal HTN, goal Problem Active Com mon below below Spirit 130/80 130/80 - [facility] Type 2 Type 2 Problem Active Common diabetes diabetes Spirit mellitus mellitus - [facility] with with diabetic diabetic [facility] nephropath nephropath Me dical y y Center Mixed Mixed Problem Active Common hyperlipid hyperlipid Sp john emia emia [facility] Proteinuri Proteinuri Problem Active C ommon a, a, Spirit unspecifie unspecifie - [facility] d type d type [facility] Allergies, Adverse Reactions, Alerts Allergy Allergy Status Severity Reaction(s) Onset Inactive Treating Comm ents Source Name Type Date Date Clinician NO KNOWN Drug Active Univers ALLERGIE Class ity of S [facility] NO KNOWN Allergy Active [facility] Social History Social Habit Start Date Stop Date Quantity Comments Source History SDOH [facility] Alcohol Comment Medical C enter History [facility] Alcohol Std Medical Cente r Drinks History [facility] Alcohol Binge Medical Maddy ter Exposure to 2022-04-08 2022-04-18 Not sure University SARS-CoV-2 00:00:00 13:02:00 [facility] (event) Branch Alcohol intake 2020-04-20 2020-04-[address] [facility] [address] Xiomy es 00:00:00 00:00:00 non-drinker of Medical Ce nter alcohol (finding) Tobacco use and 2020-02-05 2020-02-05 Smokeless tobacco [facility] exposure 00:00[facility]00 00:00:00 non-user Medical Center History SDOH 2020-02-05 2020-02-[address] [facility] Alcohol Frequency 00:00:00 00:00:00 [facility] Sex Assigned At [address] Ananya sanchezs 00:00:00 00:00:00 [facility] Smoking Status Start Date Stop Date Source Unknown if ever smoked [facility] Never smoked tobacco [facility] Medications Ordered Filled Start Stop Current Ordering Indication Dosage Frequency Signature Comments Components Source Medication Medication Date Date Medication? Clinician (SIG) Name Name neomycin-po 2021-06- No PRN, Unive rs lymyxin-dex 06-21 Starting ity of amethasone 15:26: [facility] :44 04/21/22 Medic al 3.5 at 09, Branch mg/g-10,000 Until [facility] unit/g-0.1 04/21/22 % at 0933, ophthalmic Routine, ointment Intra-op gentamicin 2021-06- No PRN, Univer s injection 06-21 Starting ity o f 15:26: 15:33 on Amanda [place] 00 :44 04/21/22 Medical at 0926, Branch Until Amanda 04/21/22 at 0933, GARRETT, Intra-op dexamethaso 2021-06- No PRN, Unive rs ne 06-21 Starting ity of (DECADRON 15:26: 15:33 on Amanda [place] PHOSPHATE) 00 :44 04/21/22 Medic al injection at 0926, Branch Until Amanda 04/21/22 at 0933, Routine, Intra-op eye block 2021-06- No PRN, Univers syringe 11 06-21 Starting ity of mL 15:21: 15:33 on Amanda [place] 00 :44 04/21/22 Medical at 0921, Branch Until Amanda 04/21/22 at 0933, Intra-op chondroitin 2022-1 2022- No PRN, Unive rs sulf-sod 06-21 Starting [...] ity of injection 15:06: 15:33 on Amanda [place] 00 :44 04/21/22 Medical at 0906, Branch Until Amanda 04/21/22 at 0933, GARRETT, Intra-op water for 2021-06- No PRN, Univers irrigation 06-21 Starting ity of irrigation 14:55: 15:33 on [place] solution 00 :44 04/21/22 Medical at 0855, Branch Until Amanda 04/21/22 at 0933, Routine, Intra-op NaCl 0.9% 2021-06- No PRN, Univers (NS) 06-21 Starting ity of injection 14:54: 15:33 on Amanda [place] 00 :44 04/21/22 Medical at 0854, Branch Until Amanda 04/21/22 at 0933, Routine, Intra-op EPINEPHrine 2021-06- No PRN, Unive rs (PF) 06-21 Starting ity of 1:1,000 (1 14:53: 15:33 on [place] mg/mL) 00 :44 04/21/22 Medical (ADRENALIN at 0853, [facility] h (PF)) Until Amanda injection 04/21/22 at 0933, Routine, Intra-op balanced 2021-06- No PRN, Univers salt soln 06-21 Starting ity o f no.2 irrig. 14:51: 15:33 on Amanda [place] as (BSS) 00 :44 04/21/22 Medical ophthalmic at 0851, Bran h solution Until Amanda 04/21/22 at 0933, Routine, Intra-op cyclopent 2021-06- No .5mL 0.5 mL, Univ ers 1%-tropic 06-21 Left Eye, ity of 1%-phenyl 14:15: 14:34 ONCE, [place] 2.5%-ketor 00 :00 dose, On Medic al 0.5% [place] Branch (MYDRIATIC 04/21/22 #5) at 0815, ophthalmic Routine, solution DSU Pre-op syringe 0.5 mL lactated 2021-06- No 1000mL at 42 Unive rs ringers IV - 11-17 mL/hr, ity of infusion 14:15: 14:34 1,000 mL, [place] 1,000 mL 00 :00 IV Medical Infusion, Branch ONCE, 1 dose, On Amanda 04/21/22 at 0815, Routine, DSU Pre-op cyclopent 2021-06- No .5mL 0.5 mL, Univ ers 1%-tropic 06-21 Left Eye, ity of 1%-phenyl 14:15: 14:34 ONCE, 1 [place] 2.5%-ketor 00 :00 dose, On Medic al 0.5% [place] Branch (MYDRIATIC 04/21/22 #5) at 0815, ophthalmic Routine, solution DSU Pre-op syringe 0.5 mL lactated 2021-06- No 1000mL at 42 Unive rs ringers IV - 11-17 mL/hr, ity of infusion 14:15: 14:34 1,000 mL, Shay as 1,000 mL 00 :00 IV Medical Infusion, Branch ONCE, 1 dose, On Amanda 04/21/22 at 0815, Routine, DSU Pre-op aspirin 81 2021-06 Yes Take by Univ ers mg Cap 1-17 mouth. ity of 10:18: [address] gemfibroziL 2021-06 Yes 1{tbl} Take 1 Un smooth 600 mg -17 tablet by ity of tablet 10:18: mouth in [place] [address] the Medical morning Branch and 1 tablet in the evening. lisinopriL- 2021-06 Yes 1{tbl} Take 1 Un smooth hydrochloro 1-17 tablet by ity of thiazide 10:18: mouth in [place] 20-12.5 mg 48 the Medical per tablet morning. [facility] metformin 2021-06 Yes 1{tbl} Take 1 Univ ers ER 500 mg 1-17 tablet by ity o f 24 hr 10:18: mouth in [place] tablet 48 the Medical morning. Branch multivitami 2021-06 Yes 1{capsu Take 1 U nivers n capsule 1-17 le} capsule by ity of 10:18: mouth in [place] 48 the Medical morning. Branch aspirin 81 2021-06 Yes Take by Univ ers mg Cap 1-17 mouth. ity of 10:18: [place] 48 Medical Branch gemfibroziL 2021-06 Yes 1{tbl} Take 1 Un smooth 600 mg 1-17 tablet by ity of tablet 10:18: mouth in [place] 48 the Medical morning Branch and 1 tablet in the evening. lisinopriL- 2021-06 Yes 1{tbl} Take 1 Un smooth hydrochloro 1-17 tablet by ity of thiazide 10:18: mouth in [place] 20-12.5 mg 48 the Medical per tablet morning. [facility] metformin 2021-06 Yes 1{tbl} Take 1 Univ ers ER 500 mg 1-17 tablet by ity o f 24 hr 10:18: mouth in [place] tablet 48 the Medical morning. Branch multivitami 2021-06 Yes 1{capsu Take 1 U nivers n capsule 1-17 le} capsule by ity of 10:18: mouth in [place] 48 the Medical morning. Branch bisoproloL- 2021-06- No 1{tbl} Take 1 U nivers hydrochloro 1-17 11-14 tablet by it y of thiazide 10:18: 00:00 [place] 5-6.25 mg 48 :00 the Medical per tablet morning. [facility] bisoproloL- 2021-06- No 1{tbl} Take 1 U nivers hydrochloro 1-17 11-14 tablet by it y of thiazide 10:18: 00:00 mouth [place] 5-6.25 mg 48 :00 the Medical per tablet morning. [facility] gemfibroziL 2021-06 Yes 1{tbl} Take 1 Un smooth 600 mg 1-14 tablet by ity of tablet 13:00: mouth in [place] [address] the Medical morning Branch and 1 tablet in the evening. lisinopriL- 2021-06 Yes 1{tbl} Take 1 Un smooth hydrochloro 1-14 tablet by ity of thiazide 13:00: mouth in [place] 20-12.5 mg 22 the Medical per tablet morning. [facility] metformin 2021-06 Yes 1{tbl} Take 1 Univ ers ER 500 mg 1-14 tablet by ity o f 24 hr 13:00: mouth in [place] tablet 22 the Medical morning. Branch multivitami 2021-06 Yes 1{capsu Take 1 U nivers n capsule 1-14 le} capsule by ity of 13:00: mouth in [place] [address] the Medical morning. Branch gemfibroziL 2021-06 Yes 1{tbl} Take 1 Un smooth 600 mg 1-14 tablet by ity of tablet 13:00: mouth in [place] [address] the Medical morning Branch and 1 tablet in the evening. lisinopriL- 2021-06 Yes 1{tbl} Take 1 Un smooth hydrochloro 1-14 tablet by ity of thiazide 13:00: mouth in [place] 20-12.5 mg 22 the Medical per tablet morning. [facility] metformin 2021-06 Yes 1{tbl} Take 1 Univ ers ER 500 mg 1-14 tablet by ity o f 24 hr 13:00: mouth in [place] tablet 22 the Medical morning. Branch multivitami 2021-06 Yes 1{capsu Take 1 U nivers n capsule 1-14 le} capsule by ity of 13:00: mouth in [place] [address] the Medical morning. Branch gemfibroziL 2021-06 Yes 1{tbl} Take 1 Un smooth 600 mg 1-14 tablet by ity of tablet 13:00: mouth in [place] [address] the Medical morning Branch and 1 tablet in the evening. lisinopriL- 2021-06 Yes 1{tbl} Take 1 Un smooth hydrochloro 1-14 tablet by ity of thiazide 13:00: mouth in [place] 20-12.5 mg 22 the Medical per tablet morning. [facility] metformin 2021-06 Yes 1{tbl} Take 1 Univ ers ER 500 mg 1-14 tablet by ity o f 24 hr 13:00: mouth in [place] tablet 22 the Medical morning. Branch multivitami 2021-06 Yes 1{capsu Take 1 U nivers n capsule -14 le} capsule by ity of 13:00: mouth in [place] 22 the Medical morning. Branch lisinopriL 2021-06 No 20mg Take 20 mg Univers 20 mg -14 -14 by mouth ity of tablet 12:59: 00:00 daily. [place] 48 :00 [facility] lisinopriL 2021-06 No 20mg Take 20 mg Univers 20 mg -14 11-14 by mouth ity of tablet 12:59: 00:00 daily. [place] 48 :00 [facility] aspirin 81 2021-06 Yes Take by [facility] ers mg Cap 1-14 mouth. ity of 12:56: [address] aspirin 81 2021-06 Yes Take by [facility] ers mg Cap 1-14 mouth. ity of 12:56: [address] aspirin 81 2021-06 Yes Take by [facility] ers mg Cap 1-14 mouth. ity of 12:56: [address] lactated 2020-06 Yes 1000mL at 42 Univer s ringers IV 2-09 mL/hr, ity of infusion 15:30: 1,000 mL, [place] 1,000 mL 00 IV Medical Infusion, Branch CONTINUOUS , Starting on Amanda 05/13/21 at 0930, Until Discontinu ed, Routine, PACU lactated 2020-06- No 1000mL at 42 Unive [...] ity of (PF)) 15:25: 17:35 PRN, 1 [place] injection 4 29 :53 dose, Medical mg Starting Branch on Amanda 05/13/21 at 0925, Until Amanda 05/13/21 at 1135, Routine, Nausea and Vomiting (N/V), PACU NaCl 0.9% 2020-06 Yes PRN, Univers (NS) 07-14 Starting ity of injection 15:01: on [facility] 05/13/21 at [facility] 0901, Branch Until Discontinu ed, Routine, Intra-op NaCl 0.9% 2020-06- No PRN, Univers (NS) 07-14 Starting ity of injection 15:01: 17:35 on [facility] 00 :53 05/13/21 at [facility] 0901, Branch Until Amanda 05/13/21 at 1135, Routine, Intra-op neomycin-po 2020-06 Yes PRN, Univer s lymyxin-dex 07-14 Starting ity of amethasone 15:00: on [facility] (MAXITROL) 00 05/13/21 at Med ical 3.5 0900, Branch mg/g-10,000 Until unit/g-0.1 Discontinu % ed, ophthalmic Routine, ointment Intra-op neomycin-po 2020-06- No PRN, Unive rs lymyxin-dex 07-14 Starting ity of amethasone 15:00: 17:35 on [facility] s (MAXITROL) 00 :53 05/13/21 at Med ical 3.5 0900, Branch mg/g-10,000 Until Amanda unit/g-0.1 05/13/21 at % 1135, ophthalmic Routine, ointment Intra-op gentamicin 2020-06 Yes PRN, Univers injection 07-14 Starting ity of 14:59: on [facility] 05/13/21 at [facility] 0859, Branch Until Discontinu ed, GARRETT, Intra-op gentamicin 2020-06- No PRN, Univer s injection 07-14 Starting ity o f 14:59: 17:35 on [facility] 00 :53 05/13/21 at Medical 0859, Branch [...] ed, GARRETT, Intra-op dexamethaso 2020-06- No PRN, Univ rs ne 07-14 Starting ity of (DECADRON [...] on Amanda [place] mg/mL) 00 05/13/21 at [facility] (ADRENALIN 0845, Branch (PF)) Until injection Discontinu ed, Routine, Intra-op DUOVISC 2020-06 Yes PRN, Univers (DUOVISC 07-14 Starting ity of VISCO 14:45: on Amanda [place] ELASTIC) 3 00 05/13/21 at [facility] ical %-4 %(0.5 0845, Branch mL) 1 % Until (0.55 mL) Discontinu intraocular ed, injection Routine, Intra-op balanced 2020-06 Yes PRN, Univers salt soln 07-14 Starting ity of no.2 irrig. 14:45: on [place] (BSS) 00 12/9/21 at Medical ophthalmic 0845, Branch solution Until Discontinu ed, Routine, Intra-op EPINEPHrine 2020-06- No PRN, Unive rs (PF) 07-14 Starting ity of 1:1,000 (1 14:45: 17:35 on [place] mg/mL) 00 :53 05/13/21 at [facility] (ADRENALIN 0845, Branch (PF)) Until Amanda injection [...] ) 0.5 % 14:39: 17:35 on Amanda [place] ophthalmic 00 :53 05/13/21 at Med ical drops 0839, Branch Until Amanda 05/13/21 at 1135, Routine, Intra-op eye block 2020-06- No PRN, Univers syringe 11 07-14 Starting ity of mL 14:39: 17:35 on [facility] 00 :53 05/13/21 at Medical 0839, Branch [...] 00 :00 dose, On Medic al 0.5% [place] Branch (MYDRIATIC 05/13/21 at #5) 0700, ophthalmic Routine, solution DSU Pre-op syringe 0.5 mL lactated 2020-06- No 1000mL at 42 Unive rs ringers IV 07-14- mL/hr, ity of infusion 13:00: 13:16 1,000 mL, [place]ay [place] 1,000 mL 00 :00 IV Medical Infusion, Branch ONCE, 1 dose, On Amanda 05/13/21 at 0700, Routine, DSU Pre-op lisinopriL 2020-06 Yes 20mg Take 20 mg U nivers 20 mg 2-09 by mouth ity of tablet 09:35: daily. [address] aspirin 81 2020-06 Yes Take by Univ ers mg Cap 2-09 mouth. ity of 09:35: [address] lisinopriL 2020-06 Yes 20mg Take 20 mg U nivers 20 mg 2-09 by mouth ity of tablet 09:35: daily. [address] aspirin 81 2020-06 Yes Take by Univ ers mg Cap 2-09 mouth. ity of 09:35: [address] multivitami 2019-06 Yes 1{capsu QD Take [address] n capsule 1-12 le} capsule by Luke s 19:58: mouth Medical 40 daily. [place] aspirin 81 2019-06 Yes 81mg QD Take [address] MG EC 1-12 by mouth [facility] tablet 19:58: daily. [address] Missing or 2019-06 Yes QD daily BP [facility] Non-Formula 1-12 PIll . [facility]ukes ry 19:58: Medical Medication 40 [place] [facility] Yes 1{capsu QD Take [address] n capsule 1-12 le} capsule by Luke s 19:58: mouth Medical 40 daily. [place] aspirin 81 2019-06 Yes 81mg QD Take [address] MG EC 1-12 by mouth [facility]ukes tablet 19:58: daily. [address] Missing or 2019-06 Yes QD daily BP [facility] Non-Formula 1-12 PIll . [facility]ukes ry 19:58: Medical Medication 40 [place] multivitaco 2019-06 Yes 1{capsu QD Take [address] n capsule 1-12 le} capsule by Luke s 19:58: mouth Medical 40 daily. [place] aspirin 81 2019-06 Yes 81mg QD Take [address] MG EC 1-12 by mouth [facility]ukes tablet 19:58: daily. [address] Missing or 2019-06 Yes QD daily BP [facility] Non-Formula 1-12 PIll . [facility]ukes ry 19:58: Medical Medication 40 [place] multivitami 2019-06 Yes 1{capsu QD Take [address] n capsule 1-12 le} capsule by Hayes s 19:58: mouth Medical 40 daily. [place] aspirin 81 2019-06 Yes 81mg QD Take [address] MG EC 1-12 by mouth [facility]ukes tablet 19:58: daily. Medical 40 Center Missing or 2019-06 Yes QD daily BP [facility] Non-Formula 1-12 PIll . [facility]ukes ry 19:58: Medical Medication 40 [place] [facility] 2019-06 Yes 1{capsu QD Take [address] n capsule 1-12 le} capsule by Hayes s 19:58: mouth Medical 40 daily. [place] aspirin 81 2019-06 Yes 81mg QD Take [address] MG EC 1-12 by mouth [facility]ukes tablet 19:58: daily. Medical 40 Center Missing or 2019-06 Yes QD daily BP [facility] Non-Formula 1-12 PIll . [facility]ukes ry 19:58: Medical Medication 40 [place] [facility] 2019-06 Yes 1{capsu QD Take [address] n capsule 1-12 le} capsule by Hayes s 19:58: mouth Medical 40 daily. [place] aspirin 81 2019-06 Yes 81mg QD Take [address] MG EC 1-12 by mouth [facility]ukes tablet 19:58: daily. Medical 40 Center Missing or 2019-06 Yes QD daily BP [facility] Non-Formula 1-12 PIll . [facility]ukes ry 19:58: Medical Medication 40 [place] Lisinopril- Lisinopril- 2018-0 Yes [place] 1 tablet Common Hydrochloro Hydrochloro 7-16 [facility] thiazide thiazide 00:00: - [facility] 00 [facility] GlipiZIDE GlipiZIDE 2017-0 Yes [place] 1 tablet Common 6-06 [facility] 00:00: - [facility] 00 [facility] Jardiance Jardiance 2018-0 2018- No [place] 1 tablet Common 5-18 07-16 [facility] 00:00: 00:00 - [facility]I 00 :00 [facility] Lisinopril- Lisinopril- Yes [place] 1 tablet Common Hydrochloro Hydrochloro [facility] thiazide thiazide - [facility] Simvastatin Simvastatin Yes [place] 1 tablet Common [facility] in the Spirit evening - [facility] Metformin Metformin Yes [place] 1 tablet Common HCl HCl [facility] with a Spirit meal - [facility] Vital Signs Vital Name Observation Time Observation [...] 2022-04-21 15:57:00 71 /min [facility] ty [facility] [place] [facility] [place] Respiratory rate 2022-04-21 15:57:00 18 /min Univ ersity of [facility] [place] Oxygen saturation in 2022-04-21 15:57:00 100 /min [facility] Arterial blood by [facility] Pulse oximetry Branch Systolic blood 2022-04-21 15:54:00 178 mm[Hg] Univer sity of pressure [place] [facility] Branch Diastolic blood 2022-04-21 15:54:00 77 mm[Hg] Unive rsity of pressure [place] [facility] [place] Body temperature 2022-04-21 15:39:00 36.56 Rachel Univ [facility] [place] [facility] Body height 2022-04-21 14:29:00 169 cm [facility] [place] [facility] Body weight 2022-04-21 14:29:00 115.3 kg [facility] [place] [facility] BMI 2022-04-21 14:29:00 40.37 kg/m2 [facility] [place] [facility] Systolic blood 2022-04-21 15:48:00 182 mm[Hg] Univer sity of pressure [facility] Branch Diastolic blood 2022-04-21 15:48:00 82 mm[Hg] Unive rsity of pressure [facility] [place] Heart rate 2022-04-21 15:48:00 74 /min Universi ty of [facility] [place] Respiratory rate 2022-04-21 15:48:00 16 /min Univ ersity of [facility] [place] Oxygen saturation in 2022-04-21 15:48:00 100 /min University of Arterial blood by [facility] Pulse oximetry Branch Body temperature 2022-04-21 15:39:00 36.56 Rachel Univ ersity of [place] [facility] Body height 2022-04-21 14:29:00 169 cm [facility] [place] [facility] Body weight 2022-04-21 14:29:00 115.3 kg [facility] [place] [facility] BMI 2022-04-21 14:29:00 40.37 kg/m2 [facility] [place] [facility] Systolic blood 2021-05-13 15:25:00 167 mm[Hg] Univer sity of pressure [place] [facility] Diastolic blood 2021-05-13 15:25:00 59 mm[Hg] Unive rsity of pressure [place] [facility] Heart rate 2021-05-13 15:25:00 58 /min [facility] [place] [facility] Respiratory rate 2021-05-13 15:25:00 13 /min Univ ersity of [place] [facility] Oxygen saturation in 2021-05-13 15:25:00 98 /min University of Arterial blood by [facility] Pulse oximetry Branch Body temperature 2021-05-13 15:08:00 36.39 Rachel Univ [facility]ity [facility] [place] [facility] Body height 2021-05-11 20:25:00 169 cm [facility] [place] [facility] Body weight 2021-05-11 20:25:00 115.3 kg [facility] [place] [facility] BMI 2021-05-11 20:25:00 40.37 kg/m2 [facility] [place] [facility] Systolic blood 2021-05-13 13:05:00 185 mm[Hg] Univer sity of pressure [place] [facility] Diastolic blood 2021-05-13 13:05:00 80 mm[Hg] Unive rsity of pressure [place] [facility] Heart rate 2021-05-13 13:05:00 61 /min [facility] [place] [facility] Body temperature 2021-05-13 13:05:00 36.61 Rachel Univ [facility] [place] [facility] Respiratory rate 2021-05-13 13:05:00 18 /min Univ ersity [facility] [place] [facility] Oxygen saturation in 2021-05-13 13:05:00 99 /min University of Arterial blood by [facility] glenda Pulse oximetry Branch Body height 2021-05-11 20:25:00 169 cm [facility] Body weight 2021-05-11 20:25:00 115.3 kg [facility] BMI 2021-05-11 20:25:00 40.37 kg/m2 [facility] HEIGHT 2020-04-16 12:31:00 167.6 cm WEIGHT 2020-04-16 12:31:00 115.44 kg HEIGHT 2020-04-14 16:40:00 167.6 cm WEIGHT 2020-04-14 16:40:00 90.719 kg HEIGHT 2020-03-10 15:50:00 167.6 cm WEIGHT 2020-03-10 15:50:00 90.719 kg HEIGHT 2020-01-09 00:00:00 167.6 cm WEIGHT 2020-01-09 00:00:00 90.719 kg HEIGHT 2019-11-05 00:00:00 167.6 cm WEIGHT 2019-11-05 00:00:00 113.853 kg Procedures Procedure Date / Time Performing Source Performed Clinician PHACOEMULSIF[facility]04[facility]:00:00 Adebayo Squires l Deinz LENS IMPLANT POCT GLUCOSE (AUTOMATED) 2022-04-21 [facility] 14:29:00 [facility] POCT GLUCOSE (AUTOMATED) 2022-04-21 [facility] 14:29:00 [facility] COMP. METABOLIC PANEL (67419) 2022-04-19 Evan [facility] 21:37:00 [facility] CBC WITH DIFF 2022-04-19 Evan [facility]as 21:37:00 [facility] ASSIGNMENT OF BENEFITS 2022-04-19 Doctor Unassigned, [facility] 21:27:04 [facility] PHACOEMULSIFICATION OF 2021-05-13 Evan [facility] CATARACT WITH INTRAOCULAR 14:27:00 Adebayo Medica l Branch LENS IMPLANT HB ECG ROUTINE & RHYTHM STRIP 2021-05-13 [facility] 13:40:06 [facility] HB ECG ROUTINE & RHYTHM STRIP 2021-05-13 [facility] 13:40:06 [facility] POCT GLUCOSE (AUTOMATED) 2021-05-13 Addy Gordon [facility] 13:18:00 [facility] POCT GLUCOSE (AUTOMATED) 2021-05-13 Evan, Addy [facility] 13:18:00 [facility] Plan of Care Planned Activity Planned Date Details Comments Source Future Scheduled 2023-02-03 Influenza Vaccine (#1) [facility] 00:00:00 [code = Influenza Vaccine Me dical Center (#1)] Future Scheduled 2023-02-03 Influenza Vaccine (#1) [facility] Test 00:00:00 [code = Influenza Vaccine Me dical Center (#1)] Future Scheduled 2023-02-03 Influenza Vaccine (#1) [facility] [facility] [code = Influenza Vaccine Me dical Center (#1)] Future Scheduled 2023-02-03 Influenza Vaccine (Season [facility] 00:[facility]:00 Ended) [code = Influenza Med ical Center Vaccine (Season Ended)] Future Scheduled 2023-02-03 Influenza Vaccine (Season [facility] 00:00:00 Ended) [code = Influenza Med ical Center Vaccine (Season Ended)] Future Scheduled 2022-06-[address] [facility] 00:00:00 (12+) [code = DEPRESSION Med ical Center SCREENING (12+)] Future Scheduled 2022-06-[address] [facility] 00:00:00 (12+) [code = DEPRESSION Med ical Center SCREENING (12+)] Future Scheduled 2022-06-[address] [facility] 00:00:00 (12+) [code = DEPRESSION Med ical Center SCREENING (12+)] Future Scheduled 2022-06-[address] [facility] 00:00:00 (12+) [code = DEPRESSION Med ical Center SCREENING (12+)] Future Scheduled 2022-06-[address] [facility] 00:00:00 (12+) [code = DEPRESSION Med ical Center SCREENING (12+)] Future Scheduled 2022-06-[address] [facility] 00:00:00 (12+) [code = DEPRESSION Med ical Center SCREENING (12+)] Future Scheduled 2022-06-05 FALLS RISK SCREENING [facility] 00:00:00 [code = FALLS RISK Medical C enter SCREENING] Future Scheduled 2022-02-03 INFLUENZA VACCINE (#1) [facility] [code = INFLUENZA VACCINE Ct dical Center (#1)] Future Scheduled 2021-04-[address] [facility] 00:00:00 Counseling and Screening Med ical Center (12+) [code = Tobacco Cessation Counseling and Screening (12+)] Future Scheduled 2021-04-[address] [facility] 00:00:00 Counseling and Screening Med ical Center (12+) [code = Tobacco Cessation Counseling and Screening (12+)] Future Scheduled 2021-04-[address] [facility] 00:00:00 Counseling and Screening Med ical Center (12+) [code = Tobacco Cessation Counseling and Screening (12+)] Future Scheduled 2021-04-[address] [facility] 00:00:00 Counseling and Screening Med ical Center (12+) [code = Tobacco Cessation Counseling and Screening (12+)] Future Scheduled 2021-04-[address] [facility] 00:00:00 Counseling and Screening Med ical Center (12+) [code = Tobacco Cessation Counseling and Screening (12+)] Future Scheduled 2021-04-[address] [facility] 00:00:00 Counseling and Screening Med ical Center (12+) [code = Tobacco Cessation Counseling and Screening (12+)] Future Scheduled 2020-10-10 PNEUMOCOCCAL VACCINE 0-[address] [facility] 00:00:00 YRS (2 - PCV) [code = Medica Center PNEUMOCOCCAL VACCINE 0-64 YRS (2 - PCV)] Future Scheduled 2020-05-[address] [facility] measurement (procedure) [facility] [code = 00791505] Future Scheduled 2020-05-[address] [facility] 00[facility]:00 measurement (procedure) [facility] [code = 71625252] Future Scheduled 2020-05-[address] [facility] 00[facility]:00 measurement (procedure) [facility] [code = 37402475] Future Scheduled 2020-05-[address] [facility] 00:00:00 measurement (procedure) [facility] [code = 15788381] Future Scheduled 2020-05-[address] [facility] 00:00:00 measurement (procedure) [facility] [code = 98873608] Future Scheduled 2020-05-[address] [facility] 00:00:00 measurement (procedure) [facility] [code = 73317471] Future Scheduled 2007-12-31 SHINGLES VACCINES (1 of [...] [facility] 00:[facility]:00 [code = 99475179] Medical Ce nter Future Scheduled 1992 Lipid panel (procedure) [facility] 00:00:00 [code = 87301761] Medical Ce nter Future Scheduled 1992 Lipid panel (procedure) [facility] 00:00:00 [code = 43683624] Medical Ce nter Future Scheduled 1992 Lipid panel (procedure) [facility] 00:00:00 [code = 04261108] Medical Ce nter Future Scheduled 1992 Lipid panel (procedure) [facility] 00:00:00 [code = 77103502] Medical Ce nter Future Scheduled 1992 Lipid panel (procedure) [facility] 00:00:00 [code = 24121657] Medical Ce nter Future Scheduled 1976 DTAP/TDAP/TD VACCINES ([address] [facility] 00:00:00 - Tdap) [code = Medical Cent er DTAP/TDAP/TD VACCINES (1 - Tdap)] Future Scheduled 1976 DTAP/TDAP/TD VACCINES ([address] [facility] 00:00:00 - Tdap) [code = Medical Cent er DTAP/TDAP/TD VACCINES (1 - Tdap)] Future Scheduled 1976 DTAP/TDAP/TD VACCINES ([address] [facility] 00:00:00 - Tdap) [code = Medical Cent er DTAP/TDAP/TD VACCINES (1 - Tdap)] Future Scheduled 1976 DTAP/TDAP/TD VACCINES ([address] [facility] 00:00:00 - Tdap) [code = Medical Cent er DTAP/TDAP/TD VACCINES (1 - Tdap)] Future Scheduled 1976 DTAP/TDAP/TD VACCINES ([address] [facility] 00:00:00 - Tdap) [code = Medical Cent er DTAP/TDAP/TD VACCINES (1 - Tdap)] Future Scheduled 1976 DTAP/TDAP/TD VACCINES ([address] [facility] 00:00:00 - Tdap) [code = Medical Cent er DTAP/TDAP/TD VACCINES (1 - Tdap)] Future Scheduled [...] HEPATITIS C Medical Center SCREENING] Future Scheduled [address] [facility] 00:[facility]:00 virus screening Medical Cent er (procedure) [code = 057844374] Future Scheduled 1967-12-31 DIABETIC EYE EXAM [code = [facility] 00:[facility]:00 DIABETIC EYE EXAM] Medical C enter Future Scheduled 1967-12-31 Diabetic foot examination [facility] 00:00:00 (regime/therapy) [code = [facility] 302903667] Future Scheduled 1967-12-31 Urine screening for [facility] 00:00:00 protein (procedure) [code Me dical Center = 250513268] Future Scheduled 1967-12-31 DIABETIC EYE EXAM [code = [facility] 00:[facility]:00 DIABETIC EYE EXAM] Medical C enter Future Scheduled 1967-12-31 Diabetic foot examination [facility] 00:00:00 (regime/therapy) [code = [facility] 288613650] Future Scheduled 1967-12-31 Urine screening for [facility] 00:00:00 protein (procedure) [code Ct dical Center = 601212767] Future Scheduled 1967-12-31 DIABETIC EYE EXAM [code = [facility] 00:00:00 DIABETIC EYE EXAM] Medical C enter Future Scheduled 1967-12-31 Diabetic foot examination [facility] 00:00:00 (regime/therapy) [code = [facility] 494996185] Future Scheduled 1967-12-31 Urine screening for [facility] 00:00:00 protein (procedure) [code Ct dicnm Center = 598217610] Future Scheduled 1967-12-31 DIABETIC EYE EXAM [code = [facility] 00:00:00 DIABETIC EYE EXAM] Medical C enter Future Scheduled 1967-12-31 Diabetic foot examination [facility] 00:00:00 (regime/therapy) [code = [facility] 099734647] Future Scheduled 1967-12-31 Urine screening for [facility] 00:00:00 protein (procedure) [code Ct dical Center = 982771361] Future Scheduled 1967-12-31 DIABETIC EYE EXAM [code = [facility] 00:00:00 DIABETIC EYE EXAM] Medical C enter Future Scheduled 1967-12-31 Diabetic foot examination [facility] 00:00:00 (regime/therapy) [code = Med ical Center 237865842] Future Scheduled 1967-12-31 Urine screening for [facility] 00:00:00 protein (procedure) [code Ct dical [place] = 204487382] Future Scheduled 1967-12-31 DIABETIC EYE EXAM [code = [facility] 00:00:00 DIABETIC EYE EXAM] Medical C enter Future Scheduled 1967-12-31 Diabetic foot examination [facility] 00:00:00 (regime/therapy) [code = Med ical Center 034711363] Future Scheduled 1967-12-31 Urine screening for [facility] 00:00:00 protein (procedure) [code Ct dical Center = 157684157] Future Scheduled 1958-07-02 COVID-19 VACCINE (#1) [facility]00 [code = COVID-19 VACCINE Med ical Center (#1)] Future Scheduled 1958-07-02 COVID-19 VACCINE (#1) [facility]:00:00 [code = COVID-19 VACCINE Med ical Center (#1)] Future Scheduled 1958-07-02 COVID-19 VACCINE (#1) [facility]:00:00 [code = COVID-19 VACCINE Med ical Center (#1)] Future Scheduled 1958-07-02 COVID-19 VACCINE (#1) [facility] 00:00:00 [code = COVID-19 VACCINE Med ical Center (#1)] Future Scheduled 1958-07-02 COVID-19 VACCINE (#1) [facility]:00:00 [code = COVID-19 VACCINE Med ical Center (#1)] Future Scheduled 1958-07-02 COVID-19 VACCINE (#1) [facility]:00:00 [code = COVID-19 VACCINE Med ical Center (#1)] Future Scheduled 1957 Screening for malignant [facility] 00:00:00 neoplasm of colon Medical Ce nter (procedure) [code = 416744340] Future Scheduled 1957 Screening for malignant [facility] 00:00:00 neoplasm of colon Medical Ce nter (procedure) [code = 535968483] Future Scheduled 1957 Screening for malignant [facility] 00:00:00 neoplasm of colon Medical Ce nter (procedure) [code = 124576470] Future Scheduled 1957 Screening for malignant [facility] 00:00:00 neoplasm of colon Medical Ce nter (procedure) [code = 098241238] Future Scheduled 1955 Sigmoidoscopy [code = [facility] S[facility]oidoscopy] Medical Cente r Future Scheduled 1957 CT Colonography (combo) [facility] 00:00:00 [code = CT Colonography [facility]i [facility] Center (combo)] Future Scheduled 1957 Screening for malignant [facility] 00:00:00 neoplasm of colon Medical Ce nter (procedure) [code = 786963544] Future Scheduled 1957 Screening for malignant [facility] 00:00:00 neoplasm of colon Medical Ce nter (procedure) [code = 442412996] Future Scheduled 1957 Screening for malignant [facility] 00:00:00 neoplasm of colon Medical Ce nter (procedure) [code = 506377797] Future Scheduled 1957 Screening for malignant [facility] 00:00:00 neoplasm of colon Medical Ce nter (procedure) [code = 805605109] Future Scheduled 1955 Sigmoidoscopy [code = [facility] Sigmoidoscopy] Medical Cente r Future Scheduled 1957 CT Colonography (combo) [facility] 00:00:00 [code = CT Colonography [facility]i [facility] Center (combo)] Future Scheduled 1957 Screening for malignant [facility] 00:00:00 neoplasm of colon Medical Ce nter (procedure) [code = 245448523] Future Scheduled 1957 Screening for malignant [facility] 00:00:00 neoplasm of colon Medical Ce nter (procedure) [code = 369690593] Future Scheduled [address] Screening for malignant [facility] 00:00:00 neoplasm of colon Medical Ce nter (procedure) [code = 449714621] Future Scheduled 1957 Screening for malignant [facility] 00:00:00 neoplasm of colon Medical Ce nter (procedure) [code = 388496005] Future Scheduled 1955 Sigmoidoscopy [code = [facility] Sigmoidoscopy] Medical Cente r Future Scheduled 1957 CT Colonography (combo) [facility] 00:00:00 [code = CT Colonography Medi [facility]enda Center (combo)] Future Scheduled 1957 Screening for malignant [facility] 00:00:00 neoplasm of colon Medical Ce nter (procedure) [code = 407212760] Future Scheduled 1957 Screening for malignant [facility] 00:00:00 neoplasm of colon Medical Ce nter (procedure) [code = 192875335] Future Scheduled 1957 Screening for malignant [facility] 00:00:00 neoplasm of colon Medical Ce nter (procedure) [code = 266833958] Future Scheduled 1957 Screening for malignant [facility] 00:00:00 neoplasm of colon Medical Ce nter (procedure) [code = 015146629] Future Scheduled 1955 Sigmoidoscopy [code = [facility] Sigmoidoscopy] Medical Cente r Future Scheduled 1957 CT Colonography (combo) [facility] 00:00:00 [code = CT Colonography [facility] (combo)] Future Scheduled 1957 Screening for malignant [facility] 00:00:00 neoplasm of colon Medical Ce nter (procedure) [code = 792109700] Future Scheduled 1957 Screening for malignant [facility] 00:00:00 neoplasm of colon Medical Ce nter (procedure) [code = 662973166] Future Scheduled 1957 Screening for malignant [facility] 00:00:00 neoplasm of colon Medical Ce nter (procedure) [code = 111508237] Future Scheduled 1957 Screening for malignant [facility] 00:00:00 neoplasm of colon Medical Ce nter (procedure) [code = 465910479] Future Scheduled 1955 Sigmoidoscopy [code = [facility] 00:[facility] Sigmoidoscopy] Medical Cente r Future Scheduled 1957 CT Colonography (combo) [facility] 00:00:00 [code = CT Colonography [facility]i [facility]enda Center (combo)] Future Scheduled 1957 CT Colonography (combo) [facility] 00:00:00 [code = CT Colonography [facility] (combo)] Future Scheduled 1957 Screening for malignant [facility] 00:00:00 neoplasm of colon Medical Ce nter (procedure) [code = 964687203] Future Scheduled 1957 Screening for malignant [facility] 00:00:00 neoplasm of colon Medical Ce nter (procedure) [code = 020478927] Future Scheduled 1957 Screening for malignant [facility] 00:00:00 neoplasm of colon Medical Ce nter (procedure) [code = 045512741] Future Scheduled 1957 Screening for malignant [facility] 00:00:00 neoplasm of colon Medical Ce nter (procedure) [code = 696117361] Future Scheduled 1955 Sigmoidoscopy [code = [facility] 00:[facility] Sigmoidoscopy] Medical Deysi r Encounters Start End Encounter Admission Attending Care Care Encounter Source Date/Time Date/Time Type Type Clinicians Facility Department ID 2021-07-27 Outpatient Brandon GORDON RISARAH AYALA [id number] Univers 10:12:17 ADDY kristie [facility] 2021-03-10 Outpatient MADELIN TAMEZ Surgery [id number] [facility] 02:24:37 BOBY 2019-11-05 Inpatient ANGELA BAUTISTA [facility] Gastro [id number] [facility] 13:03:00 2022-12-14 2022-12-14 Outpatient MUNDO FLOWER [id number] Craig 08:15:07 08:15:07 0712 F Mukul 2022-12-07 2022-12-07 Outpatient MUNDO FLOWER [id number] Craig 09:46:02 09:46:02 0705 F Mukul 2022-11-23 2022-11-23 Outpatient MUNDO FLOWER [id number] Craig 09:07:47 09:07:47 0621 F [place] 2022-11-16 2022-11-16 Outpatient [facility] [id number] Craig 07:57:13 07:57:13 0614 F [place] 2022-11-09 2022-11-09 Outpatient [facility] [id number] Craig 15:47:34 15:47:34 0607 F [place] 2022-04-21 2022-04-21 [facility] [id number] Univers 08:07:00 10:08:00 ADDY mclaughlin [facility] 2022-04-21 2022-04-21 Hospital [facility] 1.2.840.114 [id number] Univers 08:07:00 10:08:00 Encounter Addy MUHAMMAD 350.1.13.10 ity [place] [id number] [facility] [address] [place] 2022-04-21 2022-04-21 Surgery [facility] 1.2.840.114 [id number] Univers 09:10:00 09:48:00 Addy MUHAMMAD 350.1.13.10 i ty [place] [id number] [facility] [address] 2022-04-19 2022-04-19 Black Leather Trimmer Melody, Adc Lab Main [facility] 1.2.8 40.114 [id number] Univers 15:30:00 15:45:00 Visit Addy Gordon 350.1.1 3.10 [place] PROF[place] [id number] Ct dical NAL 353 [facility] 2022-04-19 2022-04-19 [facility] [id number] Univers 15:30:00 15:30:00 ADDY mclaughlin [facility] 2022-04-19 2022-04-19 Orders Doctor DONG 1.2.840.114 [id number] Univers 00:00:00 00:00:00 Only Unassigned, DO 350.1.13.10 ity of [facility] 4.2.7.2.686 Shay as [id number] [address] 2021-05-13 2021-05-13 Outpatient Brandon GORDON [facility] OPH [id number] Univers 06:57:00 09:35:00 ADDY francisco jkristie [facility] 2021-05-13 2021-05-13 Hospital Evan [facility] 1.2.840.114 [id number] Univers 06:57:00 09:35:00 Encounter Addy MU[place] 350.1.13.10 ity [place] [id number] [facility] [address] [place] 2021-05-13 2021-05-13 [facility] 1.2.840.114 [id number] Univers 08:06:00 08:42:00 Addy [place] 350.1.13.10 i ty [place] [id number] [facility] [address] [place] 2021-05-11 2021-05-11 Outpatient Brandon GORDON [facility] [id number] Univers 15:00:00 15:00:00 ADDY mclaughlin [facility] 2021-05-11 2021-05-11 Laboratory Only, Adc Test [facility] 1.2.840. 114 [id number] Univers 14:18:45 14:33:45 Only Addy Gordon 350.1.1 3.10 [place] [id number] [address] 2021-05-06 2021-05-06 Black Leather Trimmer Melody, Adc Lab Main [facility] 1.2.8 40.114 [id number] Univers 16:27:21 16:42:21 Visit Addy Gordon 350.1.1 3.10 [place] [id number] [address] 2021-05-06 2021-05-06 Outpatient Brandon GORDON [facility] [id number] Univers 16:15:00 16:15:00 ADDY mclaughlin [facility] 2020-04-14 2020-04-14 Outpatient SLE [facility] [id number] [facility] 00:00:00 00:00:00 2020-04-14 2020-04-14 Outpatient [facility] [id number] [facility] 00:00:00 00:00:00 2020-03-10 2020-03-10 [facility] [id number] [facility] 00:00:00 00:00:00 2020-02-05 2020-02-05 Outpatient WICHO [facility] [id number] [facility] 00:00:00 00:00:00 2017-12-18 2017-12-18 Out[facility] [id number] Common 14:00:00 14:00:[address] [facility] 2017-10-23 2017-10-23 Outpatient [facility] [id number] Common 15:32:00 15:32:[address] [facility] 2017-10-20 2017-10-20 Outpatient [facility] [id number] Common 10:30:00 10:30:[address] [facility] 2017-10-02 2017-10-02 Outpatient [facility] 13 [id number] Common 10:30:00 10:30:[address] [facility] Results Test Description Test Time Test Comments Results Result Comments Source POCT GLUCOSE (AUTOMATED) 2022-04-21 14:33:10 Test Item Value Reference Range Interpretation Comme nts POCT GLU (test code = 3904059097) 244 mg/dL 70-110 H Lab Interpretation (test code = 51324-9) [facility]2022-04-21 14:33:10 Test Item Value Reference Range Interpretation Comments POCT GLU (test code = 5670974323) 244 mg/dL 70-110 H Lab Interpretation (test code = Abnormal 57837-0) [facility]. METABOLIC PANEL ([id number])2022-04-19 22:28:30 Test Item Value Reference Range Interpretation Comments NA (test code = 138 mmol/L 135-145 2232138537) K (test code = 4.8 mmol/L 3.5-5.0 2708027905) CL (test code = 108 mmol/L 98-108 4712970309) CO2 TOTAL (test code = 22 mmol/L 23-31 L 1210256576) AGAP (test code = 2-16 7630164565) BUN (test code = 27 mg/dL 7-23 H 4239586722) GLUCOSE (test code = 319 mg/dL 70-110 H 6705902794) CREATININE (test code = 1.74 mg/dL 0.60-1.25 H 6669460304) TOTAL BILI (test code = 0.5 mg/dL 0.1-1.8 1103348090) CALCIUM (test code = 8.4 mg/dL 8.6-10.6 L 5590467739) T PROTEIN (test code = 6.5 g/dL 6.3-8.2 6396384082) ALBUMIN (test code = 3.5 g/dL 3.5-5.0 8698863770) ALK PHOS (test code = 100 U/L 34-122 7389981938) ALTv (test code = 20 U/L 5-50 1742-6) AST(SGOT) (test code = 20 U/L 13-40 5899946445) eGFR (test code = mL/min/1.73m2 5883765426) DARREN (test code = DARREN) Association of [...] tests). Lab Interpretation Abnormal (test code = 57866-8) [facility] WITH [id number] 21:42:01 Test Item Value Reference Range Interpretation [...] RDW-SD (test code = 42.3 fL 38.5-51.6 96038-1) RDW-CV (test code = 13.1 % 12.1-15.4 788-0) PLT (test code = See_Comment [Automated 777-3) message] The sy stem which generated this result transmitted reference range : 150 - 328 10*3/ ?L. The reference r ramiro was not used to interpret this result as normal/abnormal . MPV (test code = 10.8 fL 9.8-13.0 67645-1) NRBC/100 WBC (test See_Comment [Automat ed code = 1897611859) message] The system which generated this result transmitted reference range : 0.0 - 10.0 /100 WBCs. The refer ence range was not u sed to interpret th is result as normal/abnormal . NRBC x10^3 (test code See_Comment [Auto mated = 3948146056) message] The s ystem which generated this result transmitted reference range : 10*3/?L. The reference range was not used to interpret this result as normal/abnormal . GRAN MAT (NEUT) % 60.9 % (test code = 770-8) IMM GRAN % (test code 0.80 % = 0993453054) LYMPH % (test code = 28.1 % 736-9) MONO % (test code = 6.9 % 5905-5) EOS % (test code = 2.5 % 713-8) BASO % (test code = 0.8 % 706-2) GRAN MAT x10^3(ANC) 3.64 10*3/uL 1.99-6.95 (test code = 9245589564) IMM GRAN x10^3 (test 0.05 10*3/uL 0.00-0.06 code = 1515936108) LYMPH x10^3 (test code 1.68 10*3/uL 1.09-3.23 = 731-0) MONO x10^3 (test code 0.41 10*3/uL 0.36-1.02 = 742-7) EOS x10^3 (test code = 0.15 10*3/uL 0.06-0.53 711-2) BASO x10^3 (test code 0.05 10*3/uL 0.01-0.09 = 704-7) Lab Interpretation Abnormal (test code = 78637-8) [facility] GLUCOSE (AUTOMATED)2021-05-13 13:21:11 Test Item Value Reference Range Interpretation Comments POCT GLU (test code = 9698377595) 212 mg/dL 70-110 H Lab Interpretation (test code = Abnormal 15104-5) [facility] GLUCOSE (AUTOMATED)2021-05-13 13:21:11 Test Item Value Reference Range Interpretation Comments POCT GLU (test code = 8403727880) 212 mg/dL 70-110 H Lab Interpretation (test code = Abnormal 40697-2) [facility] [id number] 15:20:00Reason for exam:- >abnormal imaging [facility] : 1955 Sex: MFluoroscopic unit utilized for a procedure performed in the OR. No interpretation was requested. Refer tothe operative report for findings. Refer to PACS for patient radiation dose information.POCT-GLUCOSE [id number] 13:12:00 Test Item Value Reference Range Interpretation Comments POC-GLUCOSE METER 96 mg/dL 70-110 : TESTED A T [facility] [address] ([place]) (test code = MARY Taylor [facility], 1538) 48928: Supervisor Malted Milk/Techni alyssa ID = [id number] for MARIEL EFRAIN ALVARO SARS-COV2/RT-PCR ([facility])2020-04-14 19:15:00 Test Item Value Reference Range Interpretation Comments SARS-COV2/RT-PCR (test Negative Not Detected, Negative, code = 8692589) See external report for linked test SARS-COV-2 PERFORMING LAB [facility] LIZZETTE (test code = 4723499) Negative result for this test determines that [...] of the Act.Fact Sheet for Healthcare Prov iders:https://www.[address]sites/default/files/product/documents/Fact_Sheet_HC _Emrykqmjc_Idwm_UBLP-ZqX-3.pdfFact Sheet for Healthcare Patients:https://www.[address]sites/default/files/product/docume nts/Rqgl_Ygfos_Sscuoyfc_Ggfx_BSHV-NkY-8.pdfPerforming Laboratory:[facility].[place], [place] [address]FBFF-KRHNZGD METER 2019-11-07 11:55:00 Test Item Value Reference Range Interpretation Comments POC-GLUCOSE METER 109 mg/dL 70-110 : TESTED A T [facility] [address] ([employer]) (test code = [facility], 1538) 607[address]: Supervisor Malted Milk/Techni alyssa ID = [id number] for ELISA QUINN POCT-GLUCOSE [id number] 07:45:00 Test Item Value Reference Range Interpretation Comments POC-GLUCOSE METER 106 mg/dL 70-110 : TESTED A T [facility] 67[address] ([employer]) (test code = [facility] Brandon [facility], 1538) 21180: Supervisor Malted Milk/Techni alyssa ID = [id number] for JORGE LUIS QUINNENNE BASIC METABOLIC [id number] 05:46:00 Test Item Value Reference Range Interpretation [...] S NOT APPLICABLE FOR DIALYSIS PATIEN TS. Supervisor Malted Milk ID - [id number] 05:45:00 Test Item Value Reference Range Interpretation Comments MAGNESIUM (BEAKER) (test code = 1.7 mg/dL 1.6-2.6 627) Supervisor Malted Milk ID - LAHEPATIC FUNCTION [id number] 05:45:00 Test Item Value Reference Range Interpretation [...] (test code = 10 U/L 6-55 347) Supervisor Malted Milk ID - LACBC W/PLT COUNT & AUTO [id number] 05:09:00 Test Item Value Reference Range Interpretation [...] PERCENT (BEAKER) (test code = 2801) POCT-GLUCOSE [id number] 20:52:00 Test Item Value Reference Range Interpretation Comments POC-GLUCOSE METER 113 mg/dL 70-110 H : TESTED A T [facility] 6720 (BEAKER) (test code = [facility], 1538) [id number]: Supervisor Malted Milk/Techni alyssa ID = [id number] for MARIE OLIVER POCT-GLUCOSE [id number] 16:32:00 Test Item Value Reference Range Interpretation Comments POC-GLUCOSE METER 124 mg/dL 70-110 H : TESTED A T [facility] 6720 (BEAKER) (test code = [facility], 1538) 20096: Supervisor Malted Milk/Techni alyssa ID = [id number] for ELISA QUINN [place], [id number] 13:07:00Reason for exam:->abnormal imagingFINAL REPORT A fluoroscopic unit was utilized for a procedure performed in the operating room. No interpretation was requested. Please refer to the operative report regarding findings. Please refer to PACS for patient radiation dose information. Signed: Kathrine Bullard MDRephector Verified Date/Time: 11/06/2019 13:07:58 Reading Location: [facility] Radiology Reading Room -GLUCOSE [id number] 07:41:00 Test Item Value Reference Range Interpretation Comments POC-GLUCOSE METER 132 mg/dL 70-110 H : TESTED A T [facility] 6720 (BEAKER) (test code = [facility], 1538) 93520: Supervisor Malted Milk/Techni alyssa ID = [id number] for ELISA QUINN [id number] 06:34:00 Test Item Value Reference Range Interpretation Comments MAGNESIUM (BEAKER) (test code = 1.6 mg/dL 1.6-2.6 627) Supervisor Malted Milk ID - SOWMYA MBASIC METABOLIC [id number] 06:34:00 Test Item Value Reference Range Interpretation [...] S NOT APPLICABLE FOR DIALYSIS PATIEN TS. Supervisor Malted Milk ID - SOWMYA EPATIC FUNCTION [id number] 06:34:00 Test Item Value Reference Range Interpretation [...] (test code = 14 U/L 6-55 347) Supervisor Malted Milk ID - SOWMYA MCBC W/PLT COUNT & AUTO [id number] 06:29:00 Test Item Value Reference Range Interpretation [...] PERCENT (BEAKER) (test code = 2801) POCT-GLUCOSE [id number] 23:18:00 Test Item Value Reference Range Interpretation Comments POC-GLUCOSE METER 126 mg/dL 70-110 H : TESTED A T [facility] 6720 (BEAKER) (test code = [facility], 1538) 75997: Supervisor Malted Milk/Techni alyssa ID = [id number] for BRIAN LYON HEMOGLOBIN [id number] 20:09:00 Test Item Value Reference Range Interpretation Comments HEMOGLOBIN A1C (TRINIDAD) (test code = 8.3 % 4.3-6.1 H 368) SARS-COV2/RT-PCR ([facility])2019-11-05 19:00:00 Test Item Value Reference Range Interpretation Comments SARS-COV2/RT-PCR (test Not Detected Not Detected, Negative code = 4647507) SARS-COV-2 PERFORMING LAB [facility] (test code = 9072981) Negative results do not preclude SARS-CoV-2 infection [...] of the Act.Fact Sheet for Healthcare Pro viders:https://www.Trendsetters/Documents/Xpert%20Xpress%20SARS%20CoV-2/Fact%20Sh eets/486-2672%61EZAJ-VHW-1%20HEALTHCARE%20PROVIDERS%20FACT%20SHEET.pdfFact Sheet for Healthcare Patients:https://www.Perficient.Primesport/Documents/Xpert%20Xpress%20SARS%20CoV-2/Fact%20Sheets/674-3801%20SARS-COV -2%20PATIENT%20FACT%20SHEET.pdfPerforming Laboratory:[facility], [place] [address]PODN-NVZCVKY [id number] 16:49:00 Test Item Value Reference Range Interpretation Comments POC-GLUCOSE METER 230 mg/dL 70-110 H : TESTED A T [facility] 6720 (BEAKER) (test code [facility], = 1538) 37623: Supervisor Malted Milk/Techni alyssa ID = [id number] for VANNA DIXON [id number] 15:37:00 Test Item Value Reference Range Interpretation Comments MAGNESIUM (BEAKER) (test code = 1.7 mg/dL 1.6-2.6 627) Supervisor Malted Milk ID - BSBASIC METABOLIC [id number] 15:37:00 Test Item Value Reference Range Interpretation [...] S NOT APPLICABLE FOR DIALYSIS PATIEN TS. Supervisor Malted Milk ID - BSHEPATIC FUNCTION [id number] 15:37:00 Test Item Value Reference Range Interpretation [...] (test code = 16 U/L 6-55 347) Supervisor Malted Milk ID - [id number] 15:27:00 Test Item Value Reference Range Interpretation [...] mechanical heart valves.CBC W/PLT COUNT & AUTO [id number] 15:14:00 Test Item Value Reference Range Interpretation [...] % 0-1 PERCENT (BEAKER) (test code = 2319)"
[2023-01-30 13:45] VITALS: BMI 40.3
--- NOTE | 2023-01-30 14:07 | P.HP ---
Certification for Inpatient Patient admitted to: Observation With expected LOS: <2 Midnights Patient will require the following post-hospital care: None Practitioner: I am a practitioner with admitting privileges, knowledge of patient current condition, hospital course, and medical plan of care. Services: Services provided to patient in accordance with Admission requirements found in Title 42 Section 412.3 of the Code of Federal Regulations Patient History Date of Service: 01/30/23 Reason for admission: Hypertensive Urgency History of Present Illness: Patient is a 67-year-old male with a past medical history significant for DM 2, hypertension, obesity who presents with complaint of elevated blood pressure. Patient reported that he followed up with her kiln charger for management of his CKD when his blood pressure was noted to be elevated--224/117. Patient reported that he has been having bilateral lower extremity swelling for the past 2 months. Patient reported associated signs and symptoms of headache, shortness of breath with exertion, cough, loss of appetite and rhinorrhea. Patient denies any other signs or symptoms. Symptoms are aggravated or relieved by nothing. Patient was referred to the hospital by his kiln charger for further evaluation. Patient decided to present to the hospital as directed. Allergies No Known Allergies Allergy (Verified 03/19/20 15:05) Home Medications: Aspirin 1 tab PO DAILY 10/11/19 Carvedilol [Coreg] 1 tab PO BID 01/30/23 Cetirizine HCl 1 tab PO DAILY PRN 01/30/23 Dapagliflozin Propanediol [Farxiga] 1 tab PO DAILY 01/30/23 Furosemide 1 tab PO DAILY 01/30/23 Hydralazine [Apresoline*] 1 tab PO BID 01/30/23 Insulin Glargine,Hum.rec.anlog [Juliane Lancaster] 12 unit SQ BEDTIME 01/30/23 Pioglitazone HCl 1 tab PO DAILY 01/30/23 Potassium Chloride [Klor-Con 10] 1 tab PO DAILY 01/30/23 - Past Medical/Surgical History Diabetic: Yes -: HTN -: DM -: sleep apnea -: appendectomy -: subtotal cholecystectomy november 05, 2019 -: ERCP november 06, 2019 Psychosocial/ Personal History: Patient lives at home with his family. - Family History Father -: Hypertension, Diabetes - Social History Smoking Status: Never smoker Alcohol use: No CD- Drugs: No Caffeine use: No Place of Residence: Home Review of Systems General: Other (Loff of appetite ) Eyes: Unremarkable ENT: Other (Rhinorrhea) Respiratory: Cough, SOB with Excertion Cardiovascular: Unremarkable Gastrointestinal: Unremarkable Musculoskeletal: Pedal edema Integumentary: Unremarkable Neurological: Other (Headache) Lymphatics: Unremarkable Physical Examination - Physical Exam General: Alert, In no apparent distress, Oriented x3, Cooperative HEENT: Atraumatic, PERRLA, Mucous membr. moist/pink, EOMI, Sclerae nonicteric Neck: Supple, 2+ carotid pulse no bruit, No LAD, Without JVD or thyroid abnormality Respiratory: Clear to auscultation bilaterally, Normal air movement Cardiovascular: No edema, Regular rate/rhythm, Normal S1 S2 Capillary refill: <2 Seconds Gastrointestinal: Normal bowel sounds, No tenderness Musculoskeletal: No clubbing, No contractures, Swelling (BLE swelling) Integumentary: No rashes Neurological: Normal gait, Normal speech, Normal strength at 5/5 x4 extr, Normal tone, Normal affect Lymphatics: No axilla or inguinal lymphadenopathy Assessment and Plan - Plan --Hypertensive urgency. Continue home medications and hydralazine as needed. Echocardiogram pending to assess for hypertensive heart disease. Continue supportive care --Bilateral lower extremity edema. Echocardiogram pending to assess cardiac structures and function. Continue diuresis with Lasix. Continue supportive care. --DM2 with hyperglycemia. BS monitoring with sliding scale insulin and insulin glargine.. -- Headache. Tylenol as needed. --Class III obesity. Likely secondary to taking secondary to lifestyle. Patient counseled on weight reduction, diet and exercise therapy. --Anemia of chronic disease. H&H stable. We will continue to monitor hemoglobin and transfuse if less than 7.0. --CKD 3B. Nephrology consulted. Will await further recommendation from kiln charger. --Sleep apnea. Continue supportive care --DVT prophylaxis with Lovenox subQ Discharge Plan: Home Plan to discharge in: 72 Hours - Advance Directives Does patient have a Living Will: No Does patient have a Durable POA for Healthcare: No - Code Status/Comfort Care Code Status Assessed: Yes Physician Review: Patient Assessed, Agree with Above Assessment and Plan Critical Care: No
[2023-01-30 14:34] LABS: Absolute Lymphocytes (CBC) 1.2 K/uL (0.7-4.9); Hematocrit 35.8 % (39.6-49.0); Lymphocytes % 16.9 % (15.3-44.8); MCV 90.5 fL (80-100); MPV 8.5 fL (7.6-11.3); Platelets 190 thou/uL (152-406); RBC Red Blood Cell Count 3.95 M/uL (4.33-5.43)
[2023-01-30 14:50] LABS: Albumin 2.7 g/dL (3.4-5.0); Bilirubin Total 0.4 mg/dL (0.2-1.0); Potassium 4.4 mEq/L (3.5-5.1); Protein, Total 6.7 g/dL (6.4-8.2)
[2023-01-30 15:10] LABS: Magnesium 1.9 mg/dL (1.6-2.4); Thyroid Stimulating Hormone 2.1 uIU/mL (0.358-3.740); Troponin High Sensitivity 18.6 pg/mL (<58.9)
[2023-01-30 15:52] LABS: Specific Gravity 1.017 (1.005-1.030); Urine Bacteria <20 /HPF (<20); Urine Bilirubin NEGATIVE (Negative); Urine Blood 1+ (Negative); Urine Clarity Turbid (Clear); Urine Color Light-Yellow (Yellow); Urine Glucose 3+ (Negative); Urine Mucus Slight /HPF (None Seen); Urine Protein 3+ (Negative); Urine RBC <5 /HPF (None Seen); Urine Urobilinogen Normal (Normal)
[2023-01-30] MEDS: ENOXAPARIN 40 MG/0.4 ML SQ SCH (16:26)
[2023-01-30] MEDS: HYDRALAZINE HCL 20 MG/ML VIAL IV PRN (16:26)
[2023-01-30] MEDS ORDERED: D10W 250 ML BAG IV PRN (16:30)
[2023-01-30] MEDS ORDERED: GLUCAGON 1 MG/VIAL IM PRN (16:30)
[2023-01-30] MEDS: INSULIN -REGULAR HUMAN 50 UNIT/0.5 ML ML SQ SCH ×2 (16:59→21:21)
[2023-01-30] MEDS ORDERED: CETIRIZINE HCL 5 MG TABLET PO PRN (19:32)
[2023-01-30] MEDS: HYDRALAZINE HCL 25 MG TABLET PO SCH (21:22)
[2023-01-30] MEDS: carvediloL 25 MG TAB PO SCH (21:22)
[2023-01-30] MEDS: INSULIN GLARGINE 100 UNIT/ML SQ SCH (21:22)
[2023-01-30] MEDS: DOXAZOSIN 2 MG TAB PO SCH (21:22)
[2023-01-31 03:23] LABS: Absolute Lymphocytes (CBC) 1.4 K/uL (0.7-4.9); Hematocrit 31.3 % (39.6-49.0); Lymphocytes % 22.2 % (15.3-44.8); MCV 90.3 fL (80-100); MPV 8.7 fL (7.6-11.3); Platelets 166 thou/uL (152-406); RBC Red Blood Cell Count 3.47 M/uL (4.33-5.43)
[2023-01-31 03:46] LABS: BUN Blood Urea Nitrogen 33 mg/dL (7-18); Bicarbonate 22 mEq/L (21-32); Glomerular Filtration Rate 31 ml/min (=/>90); Glucose Level 183 mg/dL (74-106); HDL Cholesterol 32 mg/dL (40-60); Potassium 4.2 mEq/L (3.5-5.1); Sodium Level 141 mEq/L (136-145)
[2023-01-31 03:59] LABS: LDL, Direct 94 mg/dL (100-129)
[2023-01-31] MEDS: ENOXAPARIN 40 MG/0.4 ML SQ SCH (08:54)
[2023-01-31] MEDS: INSULIN -REGULAR HUMAN 50 UNIT/0.5 ML ML SQ SCH ×4 (08:54→21:07)
[2023-01-31] MEDS: DOXAZOSIN 2 MG TAB PO SCH ×2 (08:55→21:01)
[2023-01-31] MEDS: FUROSEMIDE 20 MG TABLET PO SCH (08:55)
[2023-01-31] MEDS: POTASSIUM CL SA 10 MEQ TAB PO SCH (08:55)
[2023-01-31] MEDS: HYDRALAZINE HCL 25 MG TABLET PO SCH ×3 (08:56→21:00)
[2023-01-31] MEDS: carvediloL 25 MG TAB PO SCH ×2 (08:58→20:59)
[2023-01-31] MEDS: HYDRALAZINE HCL 20 MG/ML VIAL IV PRN (12:44)
--- NOTE | 2023-01-31 15:19 | CON ---
Date of Consultation: 01/31/2023 Reason For Consultation: Elevated BUN and creatinine. History Of Present Illness: This is a pleasant 67-year-old gentleman, follows up with Dr. Juarez with significant past medical history of diabetes complicated with retinopathy and neuropathy, hypertensio n, hyperlipidemia, obesity, chronic kidney disease. Reviewing the record for the patient, apparently the patient's creatinine hovering around 1.9 to as of July 2022 with GFR of 30. The patient came to the hospital because of uncontrolled blood pressure with headache. Blood pressure up on arrival to the hospital was . The patient admitted to the hospital, found to have eleva tion in BUN and creatinine. For that reason, we have been consulted. The patient denied taking any nonsteroidal. No IV contrast. The patient started on blood pressure medications. Currently, blood pressure better controlled, but still elevated. Past Medical History: Includes; 1.Diabetes complicated with neuropathy and nephropathy. 2.Sleep apnea. 3.Chronic kidney disease, stage 3B. 4.Hypertension. Home Medications: Include; 1.Aspirin. 2.Carvedilol. 3.Cetirizine. 4.Farxiga. 5.Lasix. 6.Hydralazine. 7.Pioglitazone. 8.KCl. Past Surgical History: Includes appendectomy, cholecystectomy, ERCP. Family History: Positive for diabetes. Social History: Denied smoking, denied drinking, denied drugs abuse. Review of Systems: Head and Neck: No red eye. No ear pain. GI: No nausea. No vomiting. : No polyuria. No dysuria. No hematuria. German Tutor: Not applicable. Respiratory: No shortness of breath. Cardiovascular: No chest pain. Endocrine: No polydipsia. Skin: No rash. Neuro: Has headache. Musculoskeletal: No weakness. Physical Examination: Vital Signs: When I saw the patient; blood pressure of 185/82, pulse of 60, afebrile. Chest: Clear to auscultation. Heart: S1, S2. Systolic murmur. Abdomen: Soft, nontender. Extremity: Trace edema. Neurologic: Alert. No focality. Laboratory Data: Sodium 141, potassium 4.2, bicarb 22, BUN 33, creatinine 2.2, calcium 8.2, hemoglob in 10.9. Urinalysis; specific gravity of 1.017, PC ratio of 10. Has serology positive for ALEKSANDER. The patient had serum protein electrophoresis, was done before showing M spike. Assessment And Plan: 1.Chronic kidney disease, stage 3B secondary to diabetes nephropathy with nephrotic range proteinuri a with positive serum protein electrophoresis and ALEKSANDER, stable kidney function. I am going to go ahea d and start the patient on CARMENCITA inhibitor and we will follow up the patient. 2.Nephrotic range of proteinuria possible secondary to diabetes. Given the positive serum protein e lectrophoresis and ALEKSANDER, I am going to go ahead and proceed with biopsy. We will discontinue aspirin and we will start the patient on CARMENCITA inhibitor. We will send for PTH and we will follow up. 3.Hypertension with hypertension emergency. I am going to go ahead and resume beta-carmen, start t he patient on hydralazine and CARMENCITA inhibitor, and we will follow up the patient. 4.Anemia with the presence of positive M spike. I am going to repeat iron study. We will proceed w ith kidney biopsy. Time spent examining the patient [id number], reviewing data, lab and radiology, placing order, disc ussing the case with the team leader including nursing staff and hospitalist more than 75 minutes. GUERO Voice ID: [id number] Report ID: [id number]
[2023-01-31] MEDS: AMLODIPINE 10 MG TAB PO SCH (15:56)
[2023-01-31] MEDS: lisinopriL 20 MG TAB PO SCH (15:57)
--- NOTE | 2023-01-31 16:15 | P.PN ---
Subjective Date of Service: 01/31/23 Chief Complaint: Hypertensive Urgency No acute events overnight. His blood pressure seems to be better controlled. He denies any headaches, new visual disturbances (history of macular degeneration), dizziness, chest pain, palpitations, or shortness of breath. Review of Systems 10-point ROS is otherwise unremarkable Physical Examination - Vital Signs Temperature: 97.7 F Blood Pressure: 143/76 Pulse: 67 Respirations: 18 Pulse Ox (%): 97 - Physical Exam General: Alert, In no apparent distress, Oriented x3 HEENT: Atraumatic, Mucous membr. moist/pink, Sclerae nonicteric Neck: JVD not distended Respiratory: Clear to auscultation bilaterally, Normal air movement Cardiovascular: Regular rate/rhythm, Normal S1 S2, No gallops, No rubs, No murmurs, Edema (1+ BLE) Gastrointestinal: Normal bowel sounds, Soft and benign, Non-distended, No tenderness, No rebound, No guarding Musculoskeletal: No clubbing Integumentary: No rashes Neurological: Normal speech, Normal affect - Studies Laboratory Data (last 24 hrs) 01/31/23 01/31/23 02:21 02:21 WBC 6.40 Hgb 10.9 L D Hct 31.3 L Plt Count 166 Sodium 141 Potassium 4.2 BUN 33 H Creatinine 2.26 H Glucose 183 H Triglycerides 570 H Cholesterol 207 H LDL Cholesterol Direct 94 L HDL Cholesterol 32 L Cholesterol/HDL Ratio 6.47 Assessment And Plan - Plan # Hypertensive Urgency Blood pressure was as high as 190/77 on presentation, without evidence of end- organ damage. - Nephrology consulted - recommendations appreciated - Started lisinopril per Neph recs - Transthoracic echocardiogram ordered - Continue home carvedilol, amlodipine, doxazosin, furosemide, hydralazine - PRN anti-hypertensives for SBP > 160 mmHg # Hyperglycemia in Type II Diabetes Mellitus - Continue home insulin regimen + correction scale # Chronic Kidney Disease Stage III - Nephrology consulted - recommendations appreciated - Creatinine = 2.15 -> 2.26 (near baseline) - Urinalysis = 3+ glucose, 3+ protein - Monitor creatinine and urine output - If worsening, obtain renal ultrasound - Renally dose medications Kendrick Daniels M.D.
--- NOTE | 2023-01-31 16:28 | EKG ---
Test Date: 2023-01-30 Test Time: 23:13:03 White Spooler: GIOVANNA MEASUREMENT RESULTS: Intervals: Rate: 79 WI: 208 QRSD: 154 QT: 418 QTc: 479 [place]: P: 45 WI: 208 QRS: -74 T: 45 INTERPRETIVE STATEMENTS: Normal sinus rhythm Right bundle branch block Left anterior fascicular block Bifascicular block Septal infarct, age undetermined Possible Lateral infarct, age undetermined Abnormal ECG Compared to ECG 01/16/2023 11:48:37 Myocardial infarct finding now present First degree AV block no longer present Bifascicular block still present Electronically Signed On 01-31-23 16:25:44 CDT by Gordy Villa
[2023-01-31] MEDS: ONDANSETRON 4 MG/2 ML VIAL IV PRN (20:58)
[2023-01-31] MEDS: INSULIN GLARGINE 100 UNIT/ML SQ SCH (21:08)
[2023-02-01 03:54] LABS: Potassium 4.6 mEq/L (3.5-5.1)
--- NOTE | 2023-02-01 07:14 | ECHO ---
HEIGHT: 5 ft 6 in WEIGHT: 247 lb 6.4 oz DATE OF STUDY: 01/31/[address]: Belkis Small 2-DIMENSIONAL: YES M.MODE: YES DOPPLER: YES COLOR FLOW: YES TDS: YES PORTABLE: YES DEFINITY: BUBBLE STUDY: YES DIAGNOSIS: HYPERTENSIVE URGENCY CARDIAC HISTORY: CATHERIZATION: SURGERY: PROSTHETIC VALVE: PACEMAKER: MEASUREMENTS (cm) DIASTOLIC (NORMALS) SYSTOLIC (NORMALS) IVSd 1.1 (0.6-1.2) LA Diam 3.3 (1.9-4.0) LVEF 67% LVIDd 4.8 (3.5-5.7) LVIDs 3.0 (2.0-3.5) %FS 37% LVPWd 1.3 (0.6-1.2) Ao Diam 2.9 (2.0-3.7) 2 DIMENSIONAL ASSESSMENT: RIGHT ATRIUM: NORMAL LEFT ATRIUM: NORMAL RIGHT VENTRICLE: NORMAL LEFT VENTRICLE: MILD LEFT VENTRICULAR HYPERTROPHY TRICUSPID VALVE: NORMAL MITRAL VALVE: MILD MITRAL ANNULAR CALCIFICATION PULMONIC VALVE: NORMAL AORTIC VALVE: NORMAL PERICARDIAL EFFUSION: NONE AORTIC ROOT: NORMAL LEFT VENTRICULAR WALL MOTION: NORMAL DOPPLER/COLOR FLOW: SEE BELOW COMMENTS: 1. NORMAL LEFT VENTRICULAR EJECTION FRACTION 60-65% WITH NORMAL WALL MOTION 2. GRADE I DIASTOLIC DYSFUNCTION 3. MILD CONCENTRIC LEFT VENTRICULAR HYPERTROPHY 4. MILD MITRAL ANNULAR CALCIFICATION TECHNOLOGIST: SONIA ROLDAN
[2023-02-01] MEDS: lisinopriL 20 MG TAB PO SCH (08:39)
[2023-02-01] MEDS: INSULIN -REGULAR HUMAN 50 UNIT/0.5 ML ML SQ SCH ×4 (08:39→21:00)
[2023-02-01] MEDS: DOXAZOSIN 2 MG TAB PO SCH (08:40)
[2023-02-01] MEDS: POTASSIUM CL SA 10 MEQ TAB PO SCH (08:40)
[2023-02-01] MEDS: carvediloL 25 MG TAB PO SCH ×2 (08:41→21:00)
[2023-02-01] MEDS: HYDRALAZINE HCL 25 MG TABLET PO SCH ×3 (08:42→21:00)
[2023-02-01] MEDS: FUROSEMIDE 20 MG TABLET PO SCH (08:46)
[2023-02-01] MEDS: AMLODIPINE 10 MG TAB PO SCH (08:46)
[2023-02-01] MEDS: ENOXAPARIN 40 MG/0.4 ML SQ SCH (08:47)
[2023-02-01] MEDS ORDERED: NA CHLORIDE 0.9% 500 ML IV ONE (11:19)
[2023-02-01] MEDS: ONDANSETRON 4 MG/2 ML VIAL IV PRN ×2 (12:00→21:22)
--- NOTE | 2023-02-01 14:00 | P.PN ---
Subjective Date of Service: 02/01/23 Chief Complaint: Hypertensive Urgency No acute events overnight. His blood pressure seems to be better controlled. His renal function is worsening, appreciate Nephrology recommendations. He denies any headaches, new visual disturbances (history of macular degeneration), dizziness, chest pain, palpitations, or shortness of breath. Review of Systems 10-point ROS is otherwise unremarkable Physical Examination - Vital Signs Temperature: 97.3 F Blood Pressure: 101/54 Pulse: 61 Respirations: 16 Pulse Ox (%): 90 - Studies Laboratory Data (last 24 hrs) 02/01/23 02:00 Sodium 138 Potassium 4.6 BUN 37 H Creatinine 2.86 H Glucose 172 H Assessment And Plan - Plan - Physical Exam General: Alert, In no apparent distress, Oriented x3 HEENT: Atraumatic, Mucous membr. moist/pink, Sclerae nonicteric Respiratory: Clear to auscultation bilaterally, Normal air movement Cardiovascular: Regular rate/rhythm, No murmurs, Edema (1+ BLE) Gastrointestinal: Normal bowel sounds, Soft, Non-distended, No tenderness Musculoskeletal: No clubbing Integumentary: No rashes Neurological: Normal speech, Normal affect # Hypertensive Urgency Blood pressure was as high as 190/77 on presentation, without evidence of end- organ damage. - Nephrology consulted and spoke with Dr. Murdock - recommendations appreciated - Discontinued lisinopril, doxazosin per Neph recs - Transthoracic echocardiogram = "1. normal left ventricular ejection fraction 60-65% with normal wall motion 2. grade I diastolic dysfunction 3. mild concentric left ventricular hypertrophy 4. mild mitral annular calcification" - Continue home carvedilol, amlodipine, furosemide, hydralazine - PRN anti-hypertensives for SBP > 160 mmHg # Acute Kidney Injury on Chronic Kidney Disease Stage III likely due to Relative Hypotension - Nephrology consulted and spoke with Dr. Murdock - recommendations appreciated - He is planning for renal biopsy on 02/03/2023, after he has been off of aspirin for 7 days - Creatinine = 2.15 -> 2.26 -> 2.86 - Urinalysis = 3+ glucose, 3+ protein - Monitor creatinine and urine output - If worsening, obtain renal ultrasound - Renally dose medications # Hyperglycemia in Type II Diabetes Mellitus - Continue home insulin regimen + correction scale Kendrick Daniels M.D.
--- NOTE | 2023-02-01 15:37 | PN ---
Date of Progress Note: 02/01/2023 Subjective: The patient was admitted to the hospital with acute kidney injury, nephrotic range of pr oteinuria. The patient had labs showing positive serum protein electrophoresis, positive ALEKSANDER. The p atient had a presyncopal episode today. Physical Examination: Vital Signs: Blood pressure 101/54, pulse of 61, afebrile. The patient continued to have good urine output. Chest: Clear to auscultation. Heart: S1 and S2 regular. Abdomen: Soft, nontender. Extremities: Trace edema. Neurologic: Alert. No focality. Laboratory Data: Hemoglobin 10.9, dropping from 12. Sodium 138, potassium 4.6, bicarb 22, BUN 37, c reatinine 2.8, GFR of 24, calcium of 8. Current Medications: The patient includes, 1.Amlodipine 10 mg. 2.Doxazosin. 3.Carvedilol. 4.Hydralazine 25 t.i.d. 5.Lisinopril. 6.Lasix. Assessment And Plan: 1.Acute kidney injury, mostly secondary to prerenal, secondary to tight control for the blood pressu re. I am going to go ahead and yesterday we started the patient back on lisinopril. I am going to h old the lisinopril. We will put parameter for the blood pressure, medication not to be given unless blood pressure above 140 and we will discontinue doxazosin, discontinue lisinopril and we will follow up. 2.Hypertension with urgent hypertension, currently blood pressure on the lower side. I will hold li sinopril, hold Cardura and we will put parameter as above. We will monitor. 3.Nephrotic range of proteinuria, positive serology and serum protein electrophoresis, possible seco ndary to diabetes nephropathy. We will plan for kidney biopsy. The patient lost aspirin intake was Monday. We will plan for the biopsy for Monday. 4.Edema has been resolved with the presence of worsening kidney function. I will hold the Lasix. W e will give the patient IV fluid and we will follow up. GUERO Voice ID: [id number] Report ID: [id number]
[2023-02-01] MEDS: INSULIN GLARGINE 100 UNIT/ML SQ SCH (21:24)
[2023-02-02] MEDS: INSULIN -REGULAR HUMAN 50 UNIT/0.5 ML ML SQ SCH ×4 (07:30→20:54)
[2023-02-02 08:03] LABS: Potassium 4.9 mEq/L (3.5-5.1)
[2023-02-02] MEDS: carvediloL 25 MG TAB PO SCH ×2 (09:00→20:54)
[2023-02-02] MEDS: HYDRALAZINE HCL 25 MG TABLET PO SCH ×3 (09:00→20:54)
[2023-02-02] MEDS: AMLODIPINE 10 MG TAB PO SCH (09:00)
[2023-02-02] MEDS: POTASSIUM CL SA 10 MEQ TAB PO SCH (09:10)
[2023-02-02] MEDS: ENOXAPARIN 40 MG/0.4 ML SQ SCH (09:11)
[2023-02-02 09:18] VITALS: O2SAT 96
[2023-02-02] MEDS: ONDANSETRON 4 MG/2 ML VIAL IV PRN (13:13)
--- NOTE | 2023-02-02 16:29 | P.PN ---
Subjective Date of Service: 02/02/23 Chief Complaint: Hypertensive Urgency No new changes in symptoms. His creatinine is significantly worse this morning. He denies any change in urine output. His blood pressure has remained in the low/normal range. Spoke with Dr. Murdock, who recommended starting Normal Saline @ 50 mL/hr for 10 hours and plan for renal biopsy tomorrow. Review of Systems 10-point ROS is otherwise unremarkable General: Malaise Physical Examination - Vital Signs Temperature: 98.0 F Blood Pressure: 125/60 Pulse: 60 Respirations: 16 Pulse Ox (%): 95 - Studies Laboratory Data (last 24 hrs) 02/02/23 07:28 Sodium 140 Potassium 4.9 BUN 53 H Creatinine 4.93 H Glucose 144 H Assessment And Plan - Plan - Physical Exam General: Alert, In no apparent distress, Oriented x3 HEENT: Atraumatic, Mucous membr. moist/pink, Sclerae nonicteric Respiratory: Clear to auscultation bilaterally, Normal air movement Cardiovascular: Regular rate/rhythm, No murmurs, Edema (1+ BLE) Gastrointestinal: Normal bowel sounds, Soft, Non-distended, No tenderness Musculoskeletal: No clubbing Integumentary: No rashes Neurological: Normal speech, Normal affect # KDIGO Stage III Acute Kidney Injury on Chronic Kidney Disease Stage III likely due to Relative Hypotension - Nephrology consulted and spoke with Dr. Murdock - recommendations appreciated - He is planning for renal biopsy tomorrow, after he has been off of aspirin for 7 days - NPO past midnight - Creatinine = 2.15 -> 2.26 -> 2.86 -> 4.93 - Urinalysis = 3+ glucose, 3+ protein - Ordered renal ultrasound - Monitor creatinine and urine output - Renally dose medications - Avoid nephrotoxic agents # Hypertensive Urgency now with Relative Hypotension Blood pressure was as high as 190/77 on presentation, without evidence of end- organ damage. - Nephrology consulted and spoke with Dr. Murdock - recommendations appreciated - Discontinued lisinopril, doxazosin per Neph recs - Transthoracic echocardiogram = "1. normal left ventricular ejection fraction 60-65% with normal wall motion 2. grade I diastolic dysfunction 3. mild concentric left ventricular hypertrophy 4. mild mitral annular calcification" - Continue home carvedilol, amlodipine, furosemide, hydralazine - Holding paramateres for SBP < 140 mmHg # Hyperglycemia in Type II Diabetes Mellitus - Continue home insulin regimen + correction scale Kendrick Daniels M.D.
[2023-02-02] MEDS ORDERED: NA CHLORIDE 0.9% 1,000 ML IV SCH (17:00)
--- NOTE | 2023-02-02 18:04 | RAD REPORT ---
EXAM DESCRIPTION: US - Renal Ultrasound-Complete - 02/02/2023 5:12 pm CLINICAL HISTORY: ARLENE COMPARISON: Abdomen Pelvis Wo Contrast dated 12/17/2021 TECHNIQUE: Sonographic grayscale and color flow images of the kidneys and bladder were obtained. FINDINGS: Both kidneys are normal in size, shape and echotexture. The right kidney measures 11.8 cm in length. No hydronephrosis, focal mass or perinephric fluid. The left kidney measures 10.3 cm in length. No hydronephrosis, focal mass or perinephric fluid. The urinary bladder is incompletely distended without gross abnormality seen. IMPRESSION: Unremarkable renal sonogram.
[2023-02-02] MEDS: INSULIN GLARGINE 100 UNIT/ML SQ SCH (21:00)
--- NOTE | 2023-02-02 21:46 | PN ---
Date of Progress Note: 02/02/2023 Chief Complaint: Acute on chronic kidney injury, severe proteinuria. Subjective: Patient was found to have positive ALEKSANDER as well as positive M spike. Patient is to have renal biopsy. He had uncontrolled hypertension. Previous workup showed negative findings for renal artery stenosis and there was no hydronephrosis. Review of Systems: Denies chest pain, palpitation. Physical Examination: Lungs: Clear to auscultation bilaterally. Heart: S1, S2. Abdomen: Soft. Extremities: Minimal edema. Impression And Plan: 1.Acute kidney injury secondary to prerenal azotemia. Patient has underlying chronic kidney disease , stage 3B. Monitor blood pressure closely and adjust blood pressure medication. Lisinopril is on h old as well as Lasix will not be used. Patient received IV fluids. 2.Nephrotic range proteinuria. Serum protein electrophoresis showed possible M spike, likely patien t has diabetic nephropathy. Urinalysis did not show hematuria. Patient has history of uncontrolled diabetes and likely diabetic nephropathy. 3.Edema, resolved. Patient may need mild hydration for acute kidney injury. DICK/MODL Voice ID: [id number] Report ID: [id number]
[2023-02-02] MEDS: NA CHLORIDE 0.9% 1,000 ML IV SCH (22:00)
[2023-02-03 04:15] LABS: Magnesium 2.1 mg/dL (1.6-2.4); Phosphorus 5.5 mg/dL (2.5-4.9); Potassium 4.8 mEq/L (3.5-5.1)
[2023-02-03] MEDS: INSULIN -REGULAR HUMAN 50 UNIT/0.5 ML ML SQ SCH ×4 (07:30→20:56)
[2023-02-03] MEDS: POTASSIUM CL SA 10 MEQ TAB PO SCH (09:00)
[2023-02-03] MEDS ORDERED: ENOXAPARIN 30 MG/0.3 ML SQ SCH (09:00)
[2023-02-03] MEDS: AMLODIPINE 10 MG TAB PO SCH (09:00)
[2023-02-03] MEDS: HYDRALAZINE HCL 25 MG TABLET PO SCH ×3 (09:00→20:55)
[2023-02-03] MEDS: carvediloL 25 MG TAB PO SCH ×2 (09:00→20:55)
[2023-02-03 09:26] LABS: Protime INR 1.07
[2023-02-03] MEDS ORDERED: MIDAZOLAM HCL 2 MG/2 ML INJ ONE (10:14)
[2023-02-03] MEDS ORDERED: FENTANYL CITR 100 MCG/2 ML ONE ×2 (10:14→11:11)
[2023-02-03] MEDS ORDERED: FLUMAZENIL 0.1 MG/ML (5 mL VIAL) IV ONE (10:14)
[2023-02-03] MEDS ORDERED: NA CHLORIDE 0.9% 500 ML ONE (10:15)
[2023-02-03] MEDS ORDERED: NALOXONE 0.4 MG/ML VIAL ONE (10:15)
[2023-02-03] MEDS ORDERED: ATROPINE SULF 1 MG/10 ML SYR IV ONE ×2 (10:15→10:16)
[2023-02-03] MEDS: NA CHLORIDE 0.9% 1,000 ML IV SCH (11:45)
--- NOTE | 2023-02-03 13:03 | RAD REPORT ---
EXAM DESCRIPTION: CT - Renal Biopsy CT - 02/03/2023 11:51 am CLINICAL HISTORY: chronic kidney disease COMPARISON: No comparisons FINDINGS: Preoperative diagnosis: Chronic kidney disease Post operative diagnosis: Same Conscious Sedation: 1 milligram Versed, 100 mcg fentanyl. Patient was continuously monitored by nursing staff. Contrast used: NONE Estimated blood loss: less than 5 mL Specimens: 3 X 18 gauge core biopsies of the renal cortex. The patient was placed prone on the table and the left lower back area was prepped and draped in the usual sterile fashion. 1% lidocaine was infiltrated into the subcutaneous tissues for local anesthesi a. Under computed tomographic guidance, a 17 gauge introducer was advanced into the lower pole of the left kidney. Subsequently, a 8 gauge, 20 mm throw core biopsy gun was advanced into the renal cortex and 3 soft tissue cores were obtained. At the outset of the procedure, patient experienced a short episode of desat duration following intra venous administration of fentanyl. A 0.4 milligram does of Narcan was administered intravenously for opioid Reversal. Oxygen saturation levels immediately improved to 98%. The episode persisted for 2-3 minutes. Postprocedure imaging demonstrated no complications. Samples were given to pathology for gaston lysis. The patient tolerated the procedure without other immediate complication and transferred [facility] in stable condition. IMPRESSION: Successful CT-guided [place] left renal core biopsy as above. Short interval of desaturation was experienced by the patient following intravenous administration of fentanyl. Immediate opioid reversal was performed, with prompt improvement of oxygen saturation yvonne zepeda. All CT scans are performed using dose optimization technique as appropriate and may include automated exposure control or mA/KV adjustment according to patient size.
--- NOTE | 2023-02-03 14:03 | P.PN ---
Subjective Date of Service: 02/03/23 Chief Complaint: Hypertensive Urgency Subjective: Other (Had kidney biopsy done today) Physical Examination - Vital Signs Temperature: 97.3 F Blood Pressure: 129/63 Pulse: 74 Respirations: 17 Pulse Ox (%): 95 - Physical Exam General: In no apparent distress HEENT: Atraumatic, Normocephalic Neck: Supple Respiratory: Clear to auscultation bilaterally Cardiovascular: No rubs, No murmurs Gastrointestinal: Soft and benign Musculoskeletal: No clubbing Integumentary: No warmth Neurological: Normal speech, Normal tone Urinary: Other (No bladder distention) External genitalia: Deferred Rectal: Deferred - Studies Laboratory Data (last 24 hrs) 02/03/23 02/03/23 09:06 02:02 PT 11.8 INR 1.07 APTT 33.0 Sodium 139 Potassium 4.8 BUN 63 H Creatinine 5.57 H Glucose 98 Phosphorus 5.5 H Magnesium 2.1 Assessment And Plan - Plan 1. Acute kidney injury secondary to prerenal azotemia + relative hypotension. Avoid further drops in BP. Monitor renal panel. Lisinopril & lasix on hold. [place] po fluid intake at least 2L/d. 2. Nephrotic range proteinuria. Serum protein electrophoresis showed possible M spike, likely patient has diabetic nephropathy. BNP sig elevated. Strict low Na diet < 2g/d. S/p kidney biopsy on 02/03, follow up result. Statin. 3. Hypocalcemia. F/u iPTH & 25OHD. 4. DM2. Mngt per primary team. Physician Review: Patient Assessed, Agree with Above Assessment and Plan
--- NOTE | 2023-02-03 18:33 | P.PN ---
Subjective Date of Service: 02/03/23 Chief Complaint: Hypertensive Urgency No new symptoms. He denies any concerns at this time. He has been NPO in anticipation for renal biopsy today. Review of Systems 10-point ROS is otherwise unremarkable General: Malaise Physical Examination - Vital Signs Temperature: 97.4 F Blood Pressure: 128/62 Pulse: 61 Respirations: 16 Pulse Ox (%): 94 - Studies Laboratory Data (last 24 hrs) 02/03/23 02/03/23 09:06 02:02 PT 11.8 INR 1.07 APTT 33.0 Sodium 139 Potassium 4.8 BUN 63 H Creatinine 5.57 H Glucose 98 Phosphorus 5.5 H Magnesium 2.1 Assessment And Plan - Plan - Physical Exam General: Alert, In no apparent distress, Oriented x3 HEENT: Atraumatic, Mucous membr. moist/pink, Sclerae nonicteric Respiratory: Clear to auscultation bilaterally, Normal air movement Cardiovascular: Regular rate/rhythm, No murmurs, Edema (1+ BLE) Gastrointestinal: Normal bowel sounds, Soft, Non-distended, No tenderness Musculoskeletal: No clubbing Integumentary: No rashes Neurological: Normal speech, Normal affect # KDIGO Stage III Acute Kidney Injury on Chronic Kidney Disease Stage III likely due to Acute Tubular Necrosis from Relative Hypotension - Nephrology consulted and spoke with Dr. Murdock - recommendations appreciated - He is planning for renal biopsy today - Creatinine = 2.15 -> 2.26 -> 2.86 -> 4.93 -> 5.57 - Urinalysis = 3+ glucose, 3+ protein - Renal ultrasound = "unremarkable renal sonogram." - Monitor creatinine and urine output - Renally dose medications - Avoid nephrotoxic agents # Hypertensive Urgency now with Relative Hypotension Blood pressure was as high as 190/77 on presentation, without evidence of end- organ damage. - Nephrology consulted and spoke with Dr. Murdock - recommendations appreciated - Discontinued lisinopril, doxazosin per Neph recs - Transthoracic echocardiogram = "1. normal left ventricular ejection fraction 60-65% with normal wall motion 2. grade I diastolic dysfunction 3. mild concentric left ventricular hypertrophy 4. mild mitral annular calcification" - Continue home carvedilol, amlodipine, furosemide, hydralazine - Holding paramateres for SBP < 140 mmHg # Hyperglycemia in Type II Diabetes Mellitus - Continue home insulin regimen + correction scale Kendrick Daniels M.D.
[2023-02-03] MEDS: INSULIN GLARGINE 100 UNIT/ML SQ SCH (20:55)
[2023-02-04] MEDS: NA CHLORIDE 0.9% 1,000 ML IV SCH ×2 (00:35→14:38)
[2023-02-04] MEDS: INSULIN -REGULAR HUMAN 50 UNIT/0.5 ML ML SQ SCH ×4 (07:30→20:55)
[2023-02-04 07:38] LABS: Potassium 4.4 mEq/L (3.5-5.1)
[2023-02-04] MEDS: HYDRALAZINE HCL 25 MG TABLET PO SCH ×3 (08:54→20:55)
[2023-02-04] MEDS: carvediloL 25 MG TAB PO SCH ×2 (08:54→20:55)
[2023-02-04] MEDS: POTASSIUM CL SA 10 MEQ TAB PO SCH (08:54)
[2023-02-04] MEDS: AMLODIPINE 10 MG TAB PO SCH (08:55)
--- NOTE | 2023-02-04 14:53 | P.PN ---
Subjective Date of Service: 02/04/23 Chief Complaint: Hypertensive Urgency Subjective: Other (Had kidney biopsy done yesterday. C/o generalized weakness & difficulty walking.) Physical Examination - Vital Signs Temperature: 97.8 F Blood Pressure: 174/79 Pulse: 60 Respirations: 17 Pulse Ox (%): 96 - Physical Exam General: Other (appears as his stated age) HEENT: Atraumatic, Normocephalic Neck: Supple Respiratory: Other (symmetric chest expansion) Cardiovascular: No rubs, No murmurs Gastrointestinal: Soft and benign, No guarding Musculoskeletal: No clubbing Integumentary: No warmth Neurological: Normal tone Urinary: Other (No bladder distention) External genitalia: Deferred Rectal: Deferred - Studies Laboratory Data (last 24 hrs) 02/04/23 02/04/23 07:08 07:08 Hgb 10.3 L Hct 30.0 L Sodium 143 Potassium 4.4 BUN 70 H Creatinine 4.58 H Glucose 98 Assessment And Plan - Plan 1. Acute kidney injury secondary to prerenal azotemia + relative hypotension. Avoid further drops in BP. Monitor renal panel. Lisinopril & lasix on hold. [place] po fluid intake at least 2L/d. May dc IV fluid. 2. Nephrotic range proteinuria. Serum protein electrophoresis showed possible M spike, likely patient has diabetic nephropathy. BNP sig elevated. Strict low Na diet < 2g/d. S/p kidney biopsy on 02/03, follow up result. Statin. 3. Vit D deficiency. Start high dose D3 repletion. 4. Secondary hyperPTH. D3 repletion as above. 5. Hypocalcemia. D3 repletion as above 6. DM2. Mngt per primary team. 7. Debility, difficulty walking. PT/OT. 8. Dispo. Ok to dc from renal standpoint. Physician Review: Patient Assessed, Agree with Above Assessment and Plan
[2023-02-04] MEDS: VITAMIN D 5,000 UNIT CAP PO SCH (16:17)
--- NOTE | 2023-02-04 19:30 | P.PN ---
Subjective Date of Service: 02/04/23 Chief Complaint: Hypertensive Urgency He underwent renal biopsy yesterday and tolerated the procedure well. Creatinine is improving. He denies any new symptoms this morning. He denies any chest pain or palpitations. Review of Systems 10-point ROS is otherwise unremarkable Physical Examination - Vital Signs Temperature: 97.8 F Blood Pressure: 143/65 Pulse: 59 Respirations: 17 Pulse Ox (%): 97 - Studies Laboratory Data (last 24 hrs) 02/04/23 02/04/23 07:08 07:08 Hgb 10.3 L Hct 30.0 L Sodium 143 Potassium 4.4 BUN 70 H Creatinine 4.58 H Glucose 98 Assessment And Plan - Plan - Physical Exam General: Alert, In no apparent distress, Oriented x3 HEENT: Atraumatic, Mucous membr. moist/pink, Sclerae nonicteric Respiratory: Clear to auscultation bilaterally, Normal air movement Cardiovascular: Regular rate/rhythm, No murmurs, Edema (1+ BLE) Gastrointestinal: Normal bowel sounds, Soft, Non-distended, No tenderness Musculoskeletal: No clubbing Integumentary: No rashes Neurological: Normal speech, Normal affect # KDIGO Stage III Acute Kidney Injury on Chronic Kidney Disease Stage III likely due to Acute Tubular Necrosis from Relative Hypotension - Nephrology consulted- recommendations appreciated - He is planning for renal biopsy today - Creatinine = 2.15 -> 2.26 -> 2.86 -> 4.93 -> 5.57 -> 4.58 - Urinalysis = 3+ glucose, 3+ protein - Renal ultrasound = "unremarkable renal sonogram." - Monitor creatinine and urine output - Renally dose medications - Avoid nephrotoxic agents # Hypertensive Urgency now with Relative Hypotension Blood pressure was as high as 190/77 on presentation, without evidence of end- organ damage. - Nephrology consulted and spoke with Dr. Murdock - recommendations appreciated - Discontinued lisinopril, doxazosin per Neph recs - Transthoracic echocardiogram = "1. normal left ventricular ejection fraction 60-65% with normal wall motion 2. grade I diastolic dysfunction 3. mild concentric left ventricular hypertrophy 4. mild mitral annular calcification" - Continue home carvedilol, amlodipine, furosemide, hydralazine - Holding paramateres for SBP < 140 mmHg # Hyperglycemia in Type II Diabetes Mellitus - Continue home insulin regimen + correction scale Kendrick Daniels M.D.
[2023-02-04] MEDS: INSULIN GLARGINE 100 UNIT/ML SQ SCH (20:55)
[2023-02-05 03:37] LABS: Magnesium 2.1 mg/dL (1.6-2.4); Phosphorus 4.2 mg/dL (2.5-4.9); Potassium 4.8 mEq/L (3.5-5.1)
[2023-02-05] MEDS: NA CHLORIDE 0.9% 1,000 ML IV SCH ×2 (06:32→19:15)
[2023-02-05] MEDS: INSULIN -REGULAR HUMAN 50 UNIT/0.5 ML ML SQ SCH ×4 (07:30→21:00)
[2023-02-05] MEDS: HYDRALAZINE HCL 25 MG TABLET PO SCH ×3 (09:39→21:14)
[2023-02-05] MEDS: carvediloL 25 MG TAB PO SCH ×2 (09:39→21:14)
[2023-02-05] MEDS: AMLODIPINE 10 MG TAB PO SCH (09:40)
[2023-02-05] MEDS: VITAMIN D 5,000 UNIT CAP PO SCH (09:40)
[2023-02-05] MEDS: POTASSIUM CL SA 10 MEQ TAB PO SCH (09:40)
--- NOTE | 2023-02-05 11:32 | P.PN ---
Subjective Date of Service: 02/05/23 Chief Complaint: Hypertensive Urgency Subjective: No new changes Physical Examination - Vital Signs Temperature: 97.7 F Blood Pressure: 168/77 Pulse: 60 Respirations: 18 Pulse Ox (%): 96 - Physical Exam General: In no apparent distress HEENT: Atraumatic, Normocephalic Neck: Supple Respiratory: Clear to auscultation bilaterally Cardiovascular: No rubs, No murmurs Gastrointestinal: Soft and benign, No guarding Musculoskeletal: No clubbing Integumentary: No warmth Neurological: Normal speech, Normal tone Lymphatics: No axilla or inguinal lymphadenopathy Urinary: Other (No bladder distention) External genitalia: Deferred Rectal: Deferred - Studies Laboratory Data (last 24 hrs) 02/05/23 02:10 Sodium 143 Potassium 4.8 BUN 65 H Creatinine 3.59 H Glucose 99 Phosphorus 4.2 Magnesium 2.1 Assessment And Plan - Plan 1. Acute kidney injury secondary to prerenal azotemia + relative hypotension, improving. GFR improved to 18. Avoid further drops in BP. Monitor renal panel. Lisinopril & lasix on hold. [place] po fluid intake at least 2L/d. 2. Nephrotic range proteinuria. Serum protein electrophoresis showed possible M spike, likely patient has diabetic nephropathy. BNP sig elevated. Strict low Na diet < 2g/d. S/p kidney biopsy on 02/03, follow up result. Statin. 3. Vit D deficiency. Start high dose D3 repletion. 4. Secondary hyperPTH. D3 repletion as above. 5. Hypocalcemia. D3 repletion as above 6. DM2. Mngt per primary team. 7. Debility, difficulty walking. PT/OT. 8. Dispo. Ok to dc from renal standpoint. Physician Review: Patient Assessed, Agree with Above Assessment and Plan
--- NOTE | 2023-02-05 15:59 | P.PN ---
Subjective Date of Service: 02/05/23 Chief Complaint: Hypertensive Urgency No new changes. He reports good urine output. His creatinine is improving, but still quite elevated. He denies any chest pain or palpitations. Review of Systems 10-point ROS is otherwise unremarkable Physical Examination - Vital Signs Temperature: 97.8 F Blood Pressure: 106/59 Pulse: 57 Respirations: 18 Pulse Ox (%): 97 - Studies Laboratory Data (last 24 hrs) 02/05/23 02:10 Sodium 143 Potassium 4.8 BUN 65 H Creatinine 3.59 H Glucose 99 Phosphorus 4.2 Magnesium 2.1 Assessment And Plan - Plan - Physical Exam General: Alert, In no apparent distress, Oriented x3 HEENT: Atraumatic, Mucous membr. moist/pink, Sclerae nonicteric Respiratory: Clear to auscultation bilaterally, Normal air movement Cardiovascular: Regular rate/rhythm, No murmurs, Edema (1+ BLE) Gastrointestinal: Normal bowel sounds, Soft, Non-distended, No tenderness Musculoskeletal: No clubbing Integumentary: No rashes Neurological: Normal speech, Normal affect # KDIGO Stage III Acute Kidney Injury on Chronic Kidney Disease Stage III likely due to Acute Tubular Necrosis from Relative Hypotension - Nephrology consulted- recommendations appreciated - Creatinine = 2.15 -> 2.26 -> 2.86 -> 4.93 -> 5.57 -> 4.58 -> 3.59 - Urinalysis = 3+ glucose, 3+ protein - Renal ultrasound = "unremarkable renal sonogram." - Monitor creatinine and urine output - Renally dose medications - Avoid nephrotoxic agents # Hypertensive Urgency now with Relative Hypotension Blood pressure was as high as 190/77 on presentation, without evidence of end- organ damage. - Nephrology consulted- recommendations appreciated - Discontinued lisinopril, doxazosin per Neph recs - Transthoracic echocardiogram = "1. normal left ventricular ejection fraction 60-65% with normal wall motion 2. grade I diastolic dysfunction 3. mild concentric left ventricular hypertrophy 4. mild mitral annular calcification" - Continue home carvedilol, amlodipine, furosemide, hydralazine - Holding paramateres for SBP < 140 mmHg # Hyperglycemia in Type II Diabetes Mellitus - Continue home insulin regimen + correction scale Kendrick Daniels M.D.
--- NOTE | 2023-02-05 18:47 | P.PN ---
Date of Service: 02/06/23 Subjective: Physical Exam: Vitals: Reviewed Gen: Alert, Oriented, NAD CV: regular rate & rhythm, 1+ BLE edema Pulm: Respirations are clear bilaterally Abd: soft, nontender, nondistended MSK: no joint tenderness Integumentary: No rashes Neuro: normal speech, normal affect Problem List: ARLENE on CKD 3 likely due to Acute Tubular Necrosis from Relative Hypotension Hypertensive Urgency now with Relative Hypotension DM2 with hyperglycemia Plan: Nephrology consulted Monitor renal function Renally dose medications Avoid nephrotoxic agents Discontinued lisinopril, doxazosin, lasix per Neph recs Continue home carvedilol, amlodipine, hydralazine Continue home insulin regimen Sliding scale insulin
[2023-02-05] MEDS: INSULIN GLARGINE 100 UNIT/ML SQ SCH (21:00)
[2023-02-06 03:53] LABS: Potassium 4.6 mEq/L (3.5-5.1)
[2023-02-06] MEDS: INSULIN -REGULAR HUMAN 50 UNIT/0.5 ML ML SQ SCH ×4 (07:30→21:00)
[2023-02-06] MEDS: AMLODIPINE 10 MG TAB PO SCH (09:00)
[2023-02-06] MEDS: HYDRALAZINE HCL 25 MG TABLET PO SCH ×3 (09:00→21:11)
[2023-02-06] MEDS: carvediloL 25 MG TAB PO SCH ×2 (09:00→21:11)
[2023-02-06] MEDS: POTASSIUM CL SA 10 MEQ TAB PO SCH (09:05)
[2023-02-06] MEDS: VITAMIN D 5,000 UNIT CAP PO SCH (09:05)
[2023-02-06] MEDS: NA CHLORIDE 0.9% 1,000 ML IV SCH ×2 (09:06→21:12)
[2023-02-06] MEDS: INSULIN GLARGINE 100 UNIT/ML SQ SCH (21:00)
--- NOTE | 2023-02-06 21:46 | PN ---
Date of Progress Note: 02/06/2023 Chief Complaint: Acute on chronic kidney injury, nephrotic range proteinuria, hypertensive urgency. Subjective: Patient underwent renal biopsy on Monday, results are pending. Patient has severe prote inuria and diabetes mellitus with renal manifestation. Urinalysis did not show hematuria, but he has severe proteinuria and workup was initiated to evaluate for possible etiology. Patient was found to have positive M spike. He will be referred to track welder. Review of Systems: Denies fever, chills. Physical Examination: Lungs: Clear to auscultation bilaterally. Heart: S1, S2. Abdomen: Soft, benign. Extremities: Slight edema. Impression And Plan: 1.Acute kidney injury secondary to prerenal azotemia due to episodes of borderline hypotension. Blo od pressure is improving. GFR has improved. Continue to hold Lasix and continue to hold lisinopril. Continue adequate hydration by mouth. Nephrotic range proteinuria. Serum protein electrophoresis show possible M spike. The patient has diabetic nephropathy. Continue strict low-sodium diet and st atus post kidney biopsy on February 03. The results are pending. 2.Patient will start statin. Monitor cholesterol panel. 3.Vitamin D deficiency. Start high-dose vitamin D. 4.Secondary hyperparathyroidism. D3 treatment started. 5.Hypocalcemia. D3 treatment started. 6.Diabetes mellitus with renal manifestation. Patient is not a candidate for metformin. Continue i nsulin. 7.Hypertension. Blood pressure is improving. Continue current treatment. Hold CARMENCITA inhibitor due t o acute kidney injury. EB/MODL Voice ID: [id number] Report ID: [id number]
[2023-02-07 04:32] LABS: Albumin 2.5 g/dL (3.4-5.0); Bilirubin Total 0.4 mg/dL (0.2-1.0); Potassium 4.9 mEq/L (3.5-5.1); Uric Acid 9.3 mg/dL (3.5-7.2)
[2023-02-07] MEDS: INSULIN -REGULAR HUMAN 50 UNIT/0.5 ML ML SQ SCH ×2 (07:30→11:30)
[2023-02-07] MEDS: VITAMIN D 5,000 UNIT CAP PO SCH (08:45)
[2023-02-07] MEDS: POTASSIUM CL SA 10 MEQ TAB PO SCH (08:45)
[2023-02-07] MEDS: AMLODIPINE 10 MG TAB PO SCH (08:45)
[2023-02-07] MEDS: HYDRALAZINE HCL 25 MG TABLET PO SCH ×2 (08:46→14:00)
[2023-02-07] MEDS: NA CHLORIDE 0.9% 1,000 ML IV SCH (08:46)
[2023-02-07] MEDS: carvediloL 25 MG TAB PO SCH (08:46)
--- NOTE | 2023-02-07 12:54 | PN ---
Date of Progress Note: 02/07/2023 Subjective: The patient was admitted with acute kidney injury, nephrotic range of proteinuria. The patient has positive ALEKSANDER and serum protein electrophoresis. The patient undergone kidney biopsy back on Monday. Physical Examination: Vital Signs: When I saw the patient; blood pressure 139/68, pulse of 63, afebrile. Chest: Clear to auscultation. Heart: S1, S2. Regular. Abdomen: Soft, nontender. Extremities: Plus edema. Neurologic: Alert. No focality. Laboratory Data: Hemoglobin 10.3. Sodium 145, potassium 4.9, bicarb 18, BUN 48, creatinine 2.5, GFR 27, uric acid 9.3, calcium 7.9, albumin 2.5, corrected calcium is 10.5. Current Medications: The patient on include; 1.Cetirizine. 2.Amlodipine 10 mg. 3.Carvedilol 25 b.i.d. 4.Hydralazine 25 t.i.d. Assessment And Plan: 1.Acute kidney injury secondary to over diuresis, recovered, back close to his baseline. We will co ntinue to monitor the patient. Discontinue IV fluid. The patient cleared from the Renal standpoint for discharge planning to follow up in the office in [address] Juarez to review the biopsy result . 2.Nephrotic range of proteinuria, positive serum protein electrophoresis and ALEKSANDER. Follow up biopsy. Continue statin. 3.Vitamin D deficiency with marginal hypercalcemia. We will continue supplement. 4.Secondary hyperparathyroidism. Continue vitamin D. 5.Diabetes, stable. 6.Hypertension, controlled, optimal. Keep holding ARB given the recent acute kidney injury. We lorenzo holliday as outpatient. The patient cleared from the Renal standpoint for discharge planning to misty heredia up in [address] Juarez. 7... LISA/QUIANA Voice ID: [id number] Report ID: [id number]
[2023-02-07 16:20] VITALS: BP 143/70; TEMP 97.1
[2023-02-09 19:08] LABS: Immunoglobulin A 372 mg/dL (70-320); Immunoglobulin G 922 mg/dL (600-1540); Immunoglobulin M 90 mg/dL (50-300)
== END 2023-02-07 16:17 | disposition home health service (06) | DRG 305 ==
LOC: 2ND 12:55
PROVIDERS: ADMIT Internal Medicine; ATTEND Hospitalist
PROC: 0TB13ZX Excision of Left Kidney, Percutaneous Approach, Diagnostic (ICD-10-PCS; principal; 2023-02-03)
DX: I16.0 Hypertensive urgency (principal); Z68.41 Body mass index [BMI] 40.0-44.9, adult; N17.9 Acute kidney failure, unspecified; E66.01 Morbid (severe) obesity due to excess calories; I12.9 Hypertensive chronic kidney disease with stage 1 through stage 4 chronic kidney disease, or unspecified chronic kidney disease; N18.32 Chronic kidney disease, stage 3b; E11.22 Type 2 diabetes mellitus with diabetic chronic kidney disease; E11.40 Type 2 diabetes mellitus with diabetic neuropathy, unspecified; E11.65 Type 2 diabetes mellitus with hyperglycemia; D63.1 Anemia in chronic kidney disease; I95.9 Hypotension, unspecified; E55.9 Vitamin D deficiency, unspecified; E21.1 Secondary hyperparathyroidism, not elsewhere classified; E78.5 Hyperlipidemia, unspecified; R51.9 Headache, unspecified; R80.9 Proteinuria, unspecified; R60.9 Edema, unspecified; Z79.4 Long term (current) use of insulin; Z71.3 Dietary counseling and surveillance; Z90.49 Acquired absence of other specified parts of digestive tract; Z79.82 Long term (current) use of aspirin; Z79.02 Long term (current) use of antithrombotics/antiplatelets; Z79.899 Other long term (current) drug therapy
CPT/HCPCS: 36415; 50200; 76770; 80048; 80053; 80061; 81001; 82306; 82550; 82784; 82947; 83735; 83880; 83970; 84100; 84439; 84443; 84484; 84550; 85014; 85018; 85025; 85610; 85730; 86021; 86160; 86225; 86235; 86334; 86335; 88300; 93005; 93306; J0360; J0461; J1650; J1815; J2250; J2310; J2405; J3010; J7030; J7040

== ENCOUNTER 2024-01-18 15:11 | Inpatient (IN) | payer OTHER ==
[2024-01-18 15:41] LABS: Absolute Basophils 0.1 K/uL (0-0.5); Absolute Eosinophils 0.2 K/uL (0-0.5); Absolute Lymphocytes (CBC) 1.2 K/uL (0.7-4.9); Absolute Monocytes 0.5 K/uL (0.1-1.3); Absolute Neutrophil 6.4 K/uL (1.8-8.0); Basophils % 0.9 % (0-1.3); Eosinophils % 1.8 % (0-4.4); Hematocrit 31.7 % (39.6-49.0); Hemoglobin 10.9 g/dL (13.6-17.9); Lymphocytes % 14.8 % (15.3-44.8); MCHC 34.4 g/dL (32.0-36.0); MCV 93.1 fL (80-100); Monocytes % 5.9 % (3.3-12.3); Neutrophils % 76.6 % (41.7-73.7); Platelets 198 thou/uL (152-406); RBC Red Blood Cell Count 3.41 M/uL (4.33-5.43); Red Cell Distribution Width 14.5 % (12.1-15.2)
[2024-01-18 15:48] LABS: Protime INR 1.07
--- NOTE | 2024-01-18 15:55 | RAD REPORT ---
EXAM DESCRIPTION: RAD - Chest Single View - 01/18/2024 3:50 pm CLINICAL HISTORY: CHEST PAIN Chest pain. COMPARISON: Chest Single View dated 10/24/2023; Chest Single View dated 01/16/2023; Chest Single View dated 07/11/2022; Chest Single View dated 12/17/2021 FINDINGS: Portable technique limits examination quality. Mild interstitial pulmonary edema. The heart is mildly prominent in size. No displaced fractures. IMPRESSION: Mild CHF.
[2024-01-18 16:05] LABS: ALT/SGPT 33 U/L (16-61); Albumin 2.3 g/dL (3.4-5.0); Albumin/Globulin Ratio 0.5 (1.1-1.8); Alkaline Phosphatase 146 U/L (45-117); Anion Gap 10.2 mEq/L (5.0-15.0); BUN Blood Urea Nitrogen 41 mg/dL (7-18); Bicarbonate 18 mEq/L (21-32); Bilirubin Total 0.4 mg/dL (0.2-1.0); Globulin 4.2 g/dL (2.3-3.5); Glomerular Filtration Rate 21 ml/min (=/>90); Glucose Level 182 mg/dL (74-106); NT PRO-BNP 4369 pg/mL (<125); Protein, Total 6.5 g/dL (6.4-8.2); Sodium Level 141 mEq/L (136-145); Troponin High Sensitivity 25.2 pg/mL (<58.9)
[2024-01-18 16:08] LABS: AST/SGOT 28 U/L (15-37); Bilirubin Direct < 0.2 mg/dL (0-0.2); Bilirubin Indirect, Calculated 0.2 mg/dL (0.2-0.8); Magnesium 1.7 mg/dL (1.6-2.4); Potassium 5.2 mEq/L (3.5-5.1)
[2024-01-18] MEDS ORDERED: FUROSEMIDE 40 MG/4 ML VIAL ONE (16:20)
--- NOTE | 2024-01-18 16:20 | ER ---
Nurse's Notes [facility] Name: Sabra Rodriguez Jr Age: 68 yrs Sex: Male : 1955 Arrival Date: 01/18/2024 Time: 15:11 Bed 19 Private MD: Diagnosis: CHF exacerbation, chest pain Presentation: 01/17 15:24 Chief complaint: Patient states: Fell 30 min ago due to dizziness, did not hit head - ld1 negative LOC. Pt C/O chest pain prior to arrival. Coronavirus screen: At this time, the client does not indicate any symptoms associated with coronavirus-19. Ebola Screen: No symptoms or risks identified at this time. Initial Sepsis Screen: Does the patient meet any 2 criteria? No. Patient's initial sepsis screen is negative. Does the patient have a suspected source of infection? No. Patient's initial sepsis screen is negative. Risk Assessment: Do you want to hurt yourself or someone else? Patient reports no desire to harm self or others. Onset of symptoms was January 18, 2024. 15:24 Method Of Arrival: Ambulatory ld1 15:24 Acuity: KRISTINA 3 ld1 Triage Assessment: 15:25 General: Appears in no apparent distress. comfortable, Behavior is calm, cooperative, ld1 appropriate for age. Pain: Complains of pain in chest Pain does not radiate. Pain currently is 0 out of 10 on a pain scale. at worst was 9 out of 10 on a pain scale. Quality of pain is described as throbbing, Pain began suddenly, Is continuous. EENT: No signs and/or symptoms were reported regarding the EENT system. Neuro: Level of Consciousness is awake, alert, obeys commands, Oriented to person, place, time, situation, Appropriate for age. Cardiovascular: Capillary refill < 3 seconds Patient's skin is warm and dry. Rhythm is sinus tachycardia. Respiratory: Airway is patent Respiratory effort is even, unlabored. GI: Abdomen is round obese. : No signs and/or symptoms were reported regarding the genitourinary system. Derm: No signs and/or symptoms reported regarding the dermatologic system. Musculoskeletal: No signs and/or symptoms reported regarding the musculoskeletal system. Historical: - Allergies: 15:25 No Known Allergies; ld1 - PMHx: 15:17 Diabetes - NIDDM; Hypertension; Vision problems; mb9 - PSHx: 15:17 Appendectomy; Cholecystectomy; mb9 - Immunization history:: Adult Immunizations up to date. - Infectious Disease History:: Denies. - Social history:: Smoking status: Patient denies any tobacco usage or history of. Screenin:37 [facility] ED Fall Risk Assessment (Adult) History of falling in the last 3 months, mb9 including since admission No falls in past 3 months (0 pts) Confusion or Disorientation No (0 pts) Intoxicated or Sedated No (0 pts) Impaired Gait No (0 pts) Mobility Assist Device Used No (0 pt) Altered Elimination Score/Fall Risk Level 0 - 2 = Low Risk Oriented to surroundings, Maintained a safe environment, Educated pt \T\ family on fall prevention, incl call for assistance when getting out of bed. Abuse screen: Denies threats or abuse. Nutritional screening: No deficits noted. Tuberculosis screening: No symptoms or risk factors identified. Assessment: 15:36 General: Appears in no apparent distress. Behavior is calm, cooperative. Pain: mb9 Complains of pain in chest. Neuro: Bailey Agitation-Sedation Scale (RASS): 0 - Alert and Calm Level of Consciousness is awake, alert, obeys commands, Oriented to person, place, time, situation, Appropriate for age Reports dizziness, headache. Cardiovascular: Reports chest pain, Patient's skin is warm and dry. Respiratory: Airway is patent Respiratory effort is even, unlabored, Respiratory pattern is regular, symmetrical. GI: Abdomen is round non-distended, Abd is soft and non tender X 4 quads. 15:36 Derm: Skin is pink, warm \T\ dry. mb9 15:36 Cardiovascular: Edema is 2+ to left midcalf and right midcalf. : No signs and/or mb9 symptoms were reported regarding the genitourinary system. EENT: No signs and/or symptoms were reported regarding the EENT system. Musculoskeletal: Swelling present in right leg and left leg. 16:45 Reassessment: No changes from previously documented assessment. Patient and/or family mb9 updated on plan of care and expected duration. Pain level reassessed. Patient is alert, oriented x 3, equal unlabored respirations, skin warm/dry/pink. 17:45 Reassessment: No changes from previously documented assessment. Patient and/or family mb9 updated on plan of care and expected duration. Pain level reassessed. Patient is alert, oriented x 3, equal unlabored respirations, skin warm/dry/pink. 18:53 Reassessment: No changes from previously documented assessment. Patient and/or family mbErrol updated on plan of care and expected duration. Pain level reassessed. Patient is alert, oriented x 3, equal unlabored respirations, skin warm/dry/pink. Vital Signs: 15:24 BP 175 / 86; Pulse 102; Resp 28; Temp 97.3(TE); Pulse Ox 98% on R/A; Weight 117.93 kg; ld1 Height 5 ft. 6 in. ; Pain 0/10; 16:17 BP 142 / 77; Pulse 100; Resp 18; Pulse Ox 98% on R/A; mb9 17:15 BP 138 / 78; Pulse 102; Resp 18; Pulse Ox 100% on R/A; mb9 18:52 BP 156 / 84; Pulse 78; Resp 18; Pulse Ox 100% on R/A; mb9 15:24 Body Mass Index 41.96 (117.93 kg, 167.64 cm) ld1 15:24 Pain Scale: Adult ld1 ED Course: 15:15 Patient arrived in ED. ra3 15:15 July Guardado MD is Attending Physician. sp3 15:15 Barbara Pierce, TAMIR is Primary Nurse. mb9 15:17 Arm band placed on. mb9 15:20 Initial lab(s) drawn, by me, sent to lab. EKG done, by ED staff, reviewed by July Guardado MD. Inserted saline lock: 22 gauge in right antecubital area, using aseptic technique. Blood collected. Flushed with 10 mL NS. 15:25 Triage completed. ld1 15:36 CBC with Diff Sent. mb9 15:36 LFT's Sent. mb9 15:36 Magnesium Sent. mb9 15:36 NT PRO-BNP Sent. mb9 15:36 PT-INR Sent. mb9 15:36 Troponin HS Sent. mb9 15:37 Placed in gown. Bed in low position. Call light in reach. Side rails up X 1. Provided mb9 Education on: press call light if needing anything. Client placed on continuous cardiac and pulse oximetry monitoring. NIBP monitoring applied. bias cutting machine operator on. 15:53 XRAY Chest (1 view) In Process Unspecified. EDMS 16:20 Dalila Adan MD is Hospitalizing Provider. sp3 16:20 Barbara Pierce, RN is Primary Nurse. mb9 16:21 No provider procedures requiring assistance completed. mb9 18:52 Patient admitted, IV remains in place. mb9 Administered Medications: 16:26 Drug: Furosemide IVP 40 mg IVP once; give over 2 minutes Route: IVP; Site: right mb9 antecubital; Medication: 15:37 VIS not applicable for this client. mb9 Outcome: 16:20 Decision to Hospitalize by Provider. sp3 18:53 Admitted to Med/surg accompanied by tech, via wheelchair, mb9 18:53 Condition: stable 18:53 Instructed on the need for admit, 18:55 Patient left the ED. mb9 Signatures: Dispatcher [employer] EDOH Bonnie Pereira RN RN ld1 July Guardado MD MD sp3 Barbara Pierce RN RN mb9 Ysabel Carrington ra3 Corrections: (The following items were deleted from the chart) 16:27 15:36 Cardiovascular: Reports chest pain, Patient's skin is warm and dry. mb9 mb9
--- NOTE | 2024-01-18 16:21 | EDPHYS ---
Physician Documentation [facility] Name: Sabra Rodriguez Jr Age: 68 yrs Sex: Male : 1955 Arrival Date: 01/18/2024 Time: 15:11 Bed 19 Private MD: ED Physician July Guardado HPI: 01/17 15:39 This 68 yrs old Male presents to ER via Ambulatory with complaints of Chest sp3 Pain. 15:39 68-year-old male with history of diabetes, hypertension presents to the ED with chief sp3 complaint chest pressure that it started just prior to arrival which has now subsided. Patient denies any fever, headache, URI symptoms, cough, shortness of breath, abdominal pain, vomiting, diarrhea, syncope, near syncope, rash, prolonged immobilization, recent travel, known sick contacts, or any other signs or symptoms on ROS at this time.. Historical: - Allergies: 15:25 No Known Allergies; ld1 - PMHx: 15:17 Diabetes - NIDDM; Hypertension; Vision problems; mb9 - PSHx: 15:17 Appendectomy; Cholecystectomy; mb9 - Immunization history:: Adult Immunizations up to date. - Infectious Disease History:: Denies. - Social history:: Smoking status: Patient denies any tobacco usage or history of. ROS: 15:39 Constitutional: Negative for fever, chills, and weight loss, Eyes: Negative for injury, sp3 pain, redness, and discharge, ENT: Negative for injury, pain, and discharge, Neck: Negative for injury, pain, and swelling, Respiratory: Negative for shortness of breath, cough, wheezing, and pleuritic chest pain, Abdomen/GI: Negative for abdominal pain, nausea, vomiting, diarrhea, and constipation, Back: Negative for injury and pain, MS/Extremity: Negative for injury and deformity, Skin: Negative for injury, rash, and discoloration, Neuro: Negative for headache, weakness, numbness, tingling, and seizure, Psych: Negative for depression, anxiety, suicide ideation, homicidal ideation, and hallucinations, Allergy/Immunology: Negative for hives, rash, and allergies, Endocrine: Negative for neck swelling, polydipsia, polyuria, polyphagia, and marked weight changes, Hematologic/Lymphatic: Negative for swollen nodes, abnormal bleeding, and unusual bruising, 15:39 All other systems are negative, Exam: 15:40 Constitutional: This is a well developed, well nourished patient who is awake, alert, sp3 and in no acute distress. Head/Face: Normocephalic, atraumatic. Eyes: Pupils equal round and reactive to light, extra-ocular motions intact. Lids and lashes normal. Conjunctiva and sclera are non-icteric and not injected. Cornea within normal limits. Periorbital areas with no swelling, redness, or edema. Neck: Trachea midline, no thyromegaly or masses palpated, and no cervical lymphadenopathy. Supple, full range of motion without nuchal rigidity, or vertebral point tenderness. No Meningismus. Chest/axilla: Normal chest wall appearance and motion. Nontender with no deformity. No lesions are appreciated. Respiratory: Lungs have equal breath sounds bilaterally, clear to auscultation and percussion. No rales, rhonchi or wheezes noted. No increased work of breathing, no retractions or nasal flaring. Abdomen/GI: Soft, non-tender, with normal bowel sounds. No distension or tympany. No guarding or rebound. No evidence of tenderness throughout. Back: No spinal tenderness. No costovertebral tenderness. Full range of motion. Skin: Warm, dry with normal turgor. Normal color with no rashes, no lesions, and no evidence of cellulitis. MS/ Extremity: Pulses equal, no cyanosis. Neurovascular intact. Full, normal range of motion. Neuro: Awake and alert, GCS 15, oriented to person, place, time, and situation. Cranial nerves II-XII grossly intact. Motor strength 5/5 in all extremities. Sensory grossly intact. Cerebellar exam normal. Normal gait. Psych: Awake, alert, with orientation to person, place and time. Behavior, mood, and affect are within normal limits. 15:40 Cardiovascular: Patient tachycardic from 105-110 range, 15:41 ECG was reviewed by the Attending Physician. EKG demonstrates sinus tachycardia at 103 sp3 bpm with leftward axis bifascicular block, nonspecific diffuse ST/T changes without evidence of acute ischemia. Vital Signs: 15:24 BP 175 / 86; Pulse 102; Resp 28; Temp 97.3(TE); Pulse Ox 98% on R/A; Weight 117.93 kg; ld1 Height 5 ft. 6 in. ; Pain 0/10; 16:17 BP 142 / 77; Pulse 100; Resp 18; Pulse Ox 98% on R/A; mb9 17:15 BP 138 / 78; Pulse 102; Resp 18; Pulse Ox 100% on R/A; mb9 18:52 BP 156 / 84; Pulse 78; Resp 18; Pulse Ox 100% on R/A; mb9 15:24 Body Mass Index 41.96 (117.93 kg, 167.64 cm) ld1 15:24 Pain Scale: Adult ld1 MDM: 15:15 Patient medically screened. sp3 15:40 Data reviewed: vital signs, nurses notes, lab test result(s), EKG, radiologic studies. sp3 ED course: 68-year-old male with PMH above now with new onset chest pain. Differential diagnosis includes acute coronary syndrome, musculoskeletal chest pain, pleurisy, pulmonary pathology, GI pathology, among others. Workup will include chest x-ray, EKG and general laboratory values with disposition pending workup and patient course with probable 23 observation and cardiology consultation.. 16:19 ED course: Troponin negative. BNP is elevated. Will place patient in 23 observation sp3 with cardiology consultation for CHF exacerbation and chest pain in the setting of stage IV CKD.. 01/17 15:15 Order name: Basic Metabolic Panel; Complete Time: 16:10 3 01/17 15:15 Order name: CBC with Diff; Complete Time: 16:03 [facility] 01/17 15:15 Order name: LFT's; Complete Time: 16:10 3 01/17 15:15 Order name: Magnesium; Complete Time: 16:10 3 01/17 15:15 Order name: NT PRO-BNP; Complete Time: 16:10 3 01/17 15:15 Order name: PT-INR; Complete Time: 16:03 3 01/17 15:15 Order name: Troponin HS; Complete Time: 16:10 3 01/17 17:16 Order name: Ferritin EDNH 01/17 17:16 Order name: Hemoglobin A1c ED[facility] 01/17 17:16 Order name: Iron [facility] 01/17 17:16 Order name: Thyroid Stimulating Hormone ED[facility] 01/17 17:16 Order name: Urinalysis w/ reflexes ED[facility] 01/17 17:17 Order name: CBC with Automated Diff ED[facility] 01/17 17:17 Order name: CBC with Automated Diff EDMS 01/17 17:17 Order name: CBC with Automated Diff EDMS 01/17 17:17 Order name: CBC with Automated Diff EDMS 01/17 17:17 Order name: Comprehensive Metabolic Panel EDMS 01/17 17:17 Order name: Comprehensive Metabolic Panel EDMS 01/17 17:17 Order name: Comprehensive Metabolic Panel EDMS 01/17 17:17 Order name: Comprehensive Metabolic Panel EDMS 01/17 17:17 Order name: Lipid Profile EDMS 01/17 17:17 Order name: Lipid Profile EDMS 01/17 17:17 Order name: Magnesium EDMS 01/17 17:17 Order name: Magnesium EDMS 01/17 17:17 Order name: Magnesium EDMS 01/17 17:17 Order name: Magnesium EDMS 01/17 17:17 Order name: Phosphorus EDMS 01/17 17:17 Order name: Phosphorus EDMS 01/17 17:17 Order name: Phosphorus EDMS 01/17 17:17 Order name: Phosphorus EDMS 01/17 17:17 Order name: Protime (+INR) EDMS 01/17 17:17 Order name: Protime (+INR) EDMS 01/17 17:17 Order name: Troponin High Sensitivity EDMS 01/17 17:17 Order name: Troponin High Sensitivity EDMS 01/17 17:17 Order name: Troponin High Sensitivity EDMS 01/17 15:15 Order name: XRAY Chest (1 view); Complete Time: 16:03 sp3 01/17 17:16 Order name: CONS Physician Consult EDMS 01/17 17:16 Order name: CONS Physician Consult EDMS 01/17 15:15 Order name: Cardiac monitoring; Complete Time: 15:16 sp3 01/17 15:15 Order name: EKG - Nurse/Tech; Complete Time: 15:36 sp3 01/17 15:15 Order name: IV Saline Lock; Complete Time: 15:36 sp3 01/17 15:15 Order name: Labs collected and sent; Complete Time: 15:36 sp3 01/17 15:15 Order name: O2 Per Protocol; Complete Time: 15:16 sp3 01/17 15:15 Order name: O2 Sat Monitoring; Complete Time: 15:16 sp3 Administered Medications: 16:26 Drug: Furosemide IVP 40 mg IVP once; give over 2 minutes Route: IVP; Site: right mb9 antecubital; Disposition Summary: 01/18/24 16:20 Hospitalization Ordered Notes: Hospitalization Status: Observation sp3 Provider: Dalila Adan sp3 Location: Telemetry/MedSurg (observation) sp3 Condition: Stable sp3 Problem: an acute exacerbation sp3 Symptoms: have worsened sp3 Bed/Room Type: Standard sp3 Room Assignment: 220(01/18/24 17:44) bd Diagnosis - CHF exacerbation, chest pain sp3 Forms: - Medication Reconciliation Form sp3 - SBAR form sp3 - Leadership Thank You Letter sp3 Signatures: Dispatcher [employer] EDMS Kathi Bar bd Bonnie Pereira RN RN ld1 July Guardado MD MD sp3 Barbara Pierce RN RN mb9 Corrections: (The following items were deleted from the chart) 15:16 15:16 BASIC METABOLIC PANEL+C.LAB.BRZ ordered. EDMS EDMS 15:16 15:16 CBC+H.LAB.BRZ ordered. EDMS EDMS 15:16 15:16 HEPATIC FUNCTION+C.LAB.BRZ ordered. EDMS EDMS 15:16 15:16 MAGNESIUM+C.LAB.BRZ ordered. EDMS EDMS 15:16 15:16 PROBNP+C.LAB.BRZ ordered. EDMS EDMS 15:16 15:16 PROTIME (+INR)+COAG.LAB.BRZ ordered. EDMS EDMS 15:16 15:16 Troponin High Sensitivity+C.LAB.BRZ ordered. EDMS EDMS 15:16 15:16 Chest Single View+RAD.RAD.BRZ ordered. EDMS EDMS 17:44 16:20 sp3 bd
--- NOTE | 2024-01-18 17:04 | P.HP ---
Certification for Inpatient Patient admitted to: Inpatient With expected LOS: >2 Midnights Patient will require the following post-hospital care: None Practitioner: I am a practitioner with admitting privileges, knowledge of patient current condition, hospital course, and medical plan of care. Services: Services provided to patient in accordance with Admission requirements found in Title 42 Section 412.3 of the Code of Federal Regulations <Ayesha Nguyen - Last Filed: 01/18/24 16:59> Patient History Date of Service: 01/18/24 Reason for admission: CP, CHF, CKD with ARLENE History of Present Illness: Mr. Friedman is a 68-year-old male with a past medical history of diabetes, with retinopathy and neuropathy, hypertension, hyperlipidemia, CHF, obesity, and CKD. He arrives to the emergency department today with chest pain and shortness of breath. He states the chest pressure started just prior to arrival to the emergency department. It was associated with nausea, diarrhea, shortness of breath. He denies fever, ill contacts, cough, or syncope. He was seen by Dr. Villa in January of last year and had an echo that showed preserved ejection fraction of 60 to 65% with grade 1 diastolic dysfunction. He is also followed by Dr. Juarez and Mathieu for CKD. At bedside he is alert and oriented, vital signs are 142/77, 101, 22, 98%, with significant fluid overload with 3+ pitting edema to the lower extremities. He is on 4 L of oxygen per nasal cannula. His EKG in the emergency department showed a sinus tachycardia with a leftward axis bifascicular block with nonspecific diffuse ST-T changes without evidence of acute ischemia. We will admit him for aggressive diuresis, serial enzymes, further evaluation, and consultation to cardiology and nephrology. Home medications list reviewed: Yes - Past Medical/Surgical History Diabetic: Yes -: HTN -: DM -: sleep apnea -: CHF -: CKD -: appendectomy -: subtotal cholecystectomy november 05, 2019 -: ERCP november 06, 2019 Psychosocial/ Personal History: Patient lives at home with his family. - Family History Father -: Hypertension, Diabetes - Social History Smoking Status: Unknown if ever smoked Alcohol use: No CD- Drugs: No Caffeine use: No Place of Residence: Home <Ayesha Nguyen - Last Filed: 01/18/24 16:59> Date of Service: 01/18/24 <Dalila Adan Deepti - Last Filed: 01/18/24 17:47> Allergies No Known Allergies Allergy (Verified 03/19/20 15:05) Home Medications: Aspirin 1 tab PO DAILY 10/11/19 Carvedilol [Coreg] 1 tab PO BID 01/30/23 Cetirizine HCl 1 tab PO DAILY PRN 01/30/23 Dapagliflozin Propanediol [Farxiga] 1 tab PO DAILY 01/30/23 Furosemide 1 tab PO DAILY 01/30/23 Hydralazine [Apresoline*] 1 tab PO BID 01/30/23 Insulin Glargine,Hum.rec.anlog [Toujeo Stanton Solostar] 12 unit SQ BEDTIME 01/30/23 Pioglitazone HCl 1 tab PO DAILY 01/30/23 Potassium Chloride [Klor-Con 10] 1 tab PO DAILY 01/30/23 Amlodipine [Norvasc*] 10 mg PO DAILY #30 tab 02/07/23 Review of Systems 10-point ROS is otherwise unremarkable Respiratory: Shortness of Breath, SOB with Excertion Cardiovascular: Chest Pain Gastrointestinal: Nausea, Diarrhea <Nguyen,Ayesha Chacorta - Last Filed: 01/18/24 16:59> Physical Examination - Physical Exam General: Alert, In no apparent distress, Oriented x3, Obese HEENT: Atraumatic, Normocephalic Neck: Supple Respiratory: Crackles/rales, Expiratory wheezes Cardiovascular: Regular rate/rhythm, Normal S1 S2, Edema (3+pitting) Capillary refill: <2 Seconds Gastrointestinal: Normal bowel sounds, Soft and benign Musculoskeletal: No clubbing Integumentary: No rashes, Other (pallor) Neurological: Normal speech, Normal affect, Abnormal tone Lymphatics: No axilla or inguinal lymphadenopathy External genitalia: Deferred Rectal: Deferred - Studies Laboratory Data (last 24 hrs) 01/18/24 01/18/24 01/18/24 15:34 15:34 15:34 WBC 8.30 Hgb 10.9 L Hct 31.7 L Plt Count 198 PT 12.0 INR 1.07 Sodium 141 Potassium 5.2 H BUN 41 H Creatinine 3.14 H Glucose 182 H Magnesium 1.7 Total Bilirubin 0.4 AST 28 ALT 33 Alkaline Phosphatase 146 H <Nguyen,Ayesha Chacorta - Last Filed: 01/18/24 16:59> - Studies Laboratory Data (last 24 hrs) 01/18/24 01/18/24 01/18/24 15:34 15:34 15:34 WBC 8.30 Hgb 10.9 L Hct 31.7 L Plt Count 198 PT 12.0 INR 1.07 Sodium 141 Potassium 5.2 H BUN 41 H Creatinine 3.14 H Glucose 182 H Magnesium 1.7 Total Bilirubin 0.4 AST 28 ALT 33 Alkaline Phosphatase 146 H <LuizadanielErichflores Tatum - Last Filed: 01/18/24 17:47> Assessment and Plan - Plan Angina with CAD, HTN, HLD HFpEF Patient's shortness of breath has worsened. Patient's PND/orthopnea has worsened. Edema of the lower extremities has worsened. Patient with decompensated congestive heart failure. Dyspnea on exertion. Echocardiogram (last ECHO here on 01/31/23 EF 60-65%, GRADE 1 Diastolic dysfunction CARMENCITA inhibitor/ARB Beta-carmen Cardiology consultation Aggressive diuresis Statin Strict Is & Os Repeat chest x-ray Daily weight Education regarding diet and treatment of congestive heart failure with preserved EF Diabetes monitor and trend SSI with moderate coverage CL for now CKD with ARLENE creat 3.14 with GFR 21 aggressive diuresis monitor and trend Consult Dr. Juarez/Mathieu Ferritin/Iron level VTE/GI prophylaxis asa, heparin/protonix Full code - Advance Directives Does patient have a Living Will: No Does patient have a Durable POA for Healthcare: No - Code Status/Comfort Care Code Status Assessed: Yes (Full) <Ayesha Nguyen - Last Filed: 01/18/24 16:59> - Plan Pt seen and examined. I agree with the note by the COMMUNICATIONS DEPARTMENT HEAD. Pt is a 68 yo male with past medical history of DM II, Htn and vision problem who presents with complaints of chest pain. The chest pain is substernal, intermittent and non- radiating in nature with severity of 5/10. Lab studies show wbc 8.3, Hgb 10.9, K 5.2, Na 141, Cr 3.14, troponin 25.2, and BNP 4369. CXR shows mild CHF. At bedside, Pt is in NAD. A/P: Chest pain: Will r/o ACS. Troponin is 25.2. Will trend troponin q6h. Continue LUKE therapy. Will do NM Stress test. Consulted Cardiology. Hx of CHF: BNP is 4369. last ECHO on 01/31/23 showed EF 60-65%, GRADE 1 Diastolic dysfunction. Continue Lasix 40mgiv BID, strict I/O and daily weight. CXR shows Mild CHF. Hyperkalemia: K is 5.2. Will give lokelma and monitor K level. CKD, stage 3: Cr is 3.14. Will avoid nephrotoxins and monitor renal function. Will consult Nephrology Anemia: Hgb 10.9. Will monitor H/H. DVT ppx: SCD Code: full <Dalila Adan - Last Filed: 01/18/24 17:47>
[2024-01-18] MEDS: FUROSEMIDE 40 MG/4 ML VIAL IV SCH (17:22)
[2024-01-18] MEDS: carvediloL 12.5 MG TAB PO SCH (18:00)
[2024-01-18] MEDS ORDERED: FUROSEMIDE 20 MG/ 2ML VIAL ONE (18:03)
[2024-01-18 18:05] LABS: Ferritin 200.4 ng/mL (26-388)
[2024-01-18] MEDS: IPRATROPIUM BROM 0.5MG/2.5ML NEB SCH (20:21)
[2024-01-18] MEDS: INSULIN REGULAR (HUMAN) 100 UNIT/ML SQ SCH (21:00)
[2024-01-18] MEDS: ATORVASTATIN 80 MG TAB PO SCH (21:47)
[2024-01-19] MEDS: HEPARIN 5000 UNIT/ML 1 ML VIAL SQ SCH (02:26)
[2024-01-19 06:59] LABS: Sqamous Epithelial <5 /HPF (None Seen); Urine Bacteria None Seen /HPF (<20); Urine Bilirubin NEGATIVE (Negative); Urine Blood 1+ (Negative); Urine Clarity Turbid (Clear); Urine Color Light-Yellow (Yellow); Urine Culture Reflex Order NOT NEEDED; Urine Glucose 1+ (Negative); Urine Ketones NEGATIVE (Negative); Urine Microscopic Reflex YN ORDER UMIC; Urine Mucus Slight /HPF (None Seen); Urine Nitrite NEGATIVE (Negative); Urine Protein 3+ (Negative); Urine RBC <5 /HPF (None Seen); Urine Urobilinogen Normal (Normal); Urine WBC <5 /HPF (<5)
[2024-01-19 07:13] LABS: PT Prothrombin Time 12.8 SECONDS (9.4-12.5); Protime INR 1.15
[2024-01-19 07:14] LABS: Absolute Basophils 0.1 K/uL (0-0.5); Absolute Eosinophils 0.2 K/uL (0-0.5); Absolute Lymphocytes (CBC) 1.4 K/uL (0.7-4.9); Absolute Monocytes 0.4 K/uL (0.1-1.3); Absolute Neutrophil 4.8 K/uL (1.8-8.0); Basophils % 0.9 % (0-1.3); Eosinophils % 2.5 % (0-4.4); Hematocrit 31.3 % (39.6-49.0); Hemoglobin 10.1 g/dL (13.6-17.9); Lymphocytes % 20.5 % (15.3-44.8); MCH 30.6 pg (27.0-35.0); MCHC 32.5 g/dL (32.0-36.0); MCV 94.2 fL (80-100); MPV 9.3 fL (7.6-11.3); Monocytes % 6.4 % (3.3-12.3); Neutrophils % 69.7 % (41.7-73.7); Platelets 184 thou/uL (152-406); RBC Red Blood Cell Count 3.32 M/uL (4.33-5.43); Red Cell Distribution Width 14.6 % (12.1-15.2)
[2024-01-19 07:28] LABS: Albumin 2.2 g/dL (3.4-5.0); Albumin/Globulin Ratio 0.6 (1.1-1.8); Anion Gap 9.8 mEq/L (5.0-15.0); Bilirubin Total 0.4 mg/dL (0.2-1.0); Globulin 3.9 g/dL (2.3-3.5); Magnesium 1.7 mg/dL (1.6-2.4); Phosphorus 4.7 mg/dL (2.5-4.9); Potassium 4.8 mEq/L (3.5-5.1); Protein, Total 6.1 g/dL (6.4-8.2); Troponin High Sensitivity 43.2 pg/mL (<58.9)
--- NOTE | 2024-01-19 07:45 | P.PN ---
Subjective Date of Service: 01/19/24 Chief Complaint: CP, CHF, CKD with ARLENE Subjective: No C/O voiced (resting supine, + diuresis last pm but overflow and spillage results in nonmeasurement. Boss being placed. Lasix increased to 40mg TID. Iron orders placed. Will give on 25gm albumin infusion) <Ayesha Nguyen - Last Filed: 01/19/24 07:40> Date of Service: 01/19/24 <WhittenZachrosita Reji - Last Filed: 01/21/24 04:40> Review of Systems 10-point ROS is otherwise unremarkable General: As per HPI Respiratory: As per HPI Cardiovascular: Other (denies chest pain) <Ayesha Nguyenlen - Last Filed: 01/19/24 07:40> Physical Examination - Vital Signs Temperature: 97.7 F Blood Pressure: 153/72 Pulse: 68 Respirations: 20 Pulse Ox (%): 95 - Physical Exam General: Alert, Oriented x3, Obese HEENT: Atraumatic, Normocephalic Neck: Supple Respiratory: Normal air movement Cardiovascular: Regular rate/rhythm, Normal S1 S2, Edema (moderate to significant overload. 3+ pitting edema to lower ext. mild anasarca) Capillary refill: <2 Seconds Gastrointestinal: Soft and benign Musculoskeletal: No clubbing Integumentary: Other (pallor) Neurological: Normal speech, Normal tone, Normal affect Lymphatics: No axilla or inguinal lymphadenopathy External genitalia: Deferred Rectal: Deferred - Studies Laboratory Data (last 24 hrs) 01/18/24 01/18/24 01/18/24 15:34 15:34 15:34 WBC 8.30 Hgb 10.9 L Hct 31.7 L Plt Count 198 PT 12.0 INR 1.07 Sodium 141 Potassium 5.2 H BUN 41 H Creatinine 3.14 H Glucose 182 H Magnesium 1.7 Total Bilirubin 0.4 AST 28 ALT 33 Alkaline Phosphatase 146 H <Ayesha Nguyen - Last Filed: 01/19/24 07:40> Assessment And Plan - Plan Angina with CAD, HTN, HLD HFpEF Patient's shortness of breath has worsened. Patient's PND/orthopnea has worsened. Edema of the lower extremities has worsened. Patient with decompensated congestive heart failure. Dyspnea on exertion. Echocardiogram (last ECHO here on 01/31/23 EF 60-65%, GRADE 1 Diastolic dysfunction Lisinopril Coreg Cardiology consultation Aggressive diuresis Statin Strict Is & Os Repeat chest x-ray Daily weight Education regarding diet and treatment of congestive heart failure with preserved EF Diabetes monitor and trend SSI with moderate coverage CL for now CKD with ARLENE creat 3.14 with GFR 21 aggressive diuresis monitor and trend Consult Dr. Juarez/Mathieu Ferritin/Iron level 01/18 creatinine 3.5/GFR 18 lasix increased to 40mg TID iron 33, will give IV VTE/GI prophylaxis asa, heparin/protonix Full code <Ayesha Nguyen - Last Filed: 01/19/24 07:40> Date of Service: 01/19/24 Chart has been reviewed. Events of the last 24 hours have been noted. Case discussed with JEYSON. I performed a substantial part of the MDM during this patient's care today. I personally made or approved the documented management plan and acknowledge its risk of complications. I agree with the findings and documentation provided in the JEYSON's notes Patient was taken for cardiac cath and stent was placed. Patient with renal insufficiency and patient started on IV fluids with bicarb and mucomyst. <Adolfo Whitten - Last Filed: 01/21/24 04:40>
--- NOTE | 2024-01-19 08:16 | P.CNS ---
Date of Consult: 01/19/24 Chief Complaint: CP, CHF, CKD with ARLENE History of Present Illness: Patient with PMH of diastolic heart failure, HTN, DM, HLD presented with sudden onset chest pain yesterday, radiated to his left arm lasted 5 minutes, denies dizzy spells, no syncope, report SOB and BLE. Allergies No Known Allergies Allergy (Verified 03/19/20 15:05) Home medications list reviewed: Yes Home Medications: Aspirin 1 tab PO DAILY 10/11/19 Carvedilol [Coreg] 1 tab PO BID 01/30/23 Cetirizine HCl 1 tab PO DAILY PRN 01/30/23 Dapagliflozin Propanediol [Farxiga] 1 tab PO DAILY 01/30/23 Furosemide 1 tab PO DAILY 01/30/23 Hydralazine [Apresoline*] 1 tab PO BID 01/30/23 Insulin Glargine,Hum.rec.anlog [Toujuly Eid Solostar] 12 unit SQ BEDTIME 01/30/23 Pioglitazone HCl 1 tab PO DAILY 01/30/23 Potassium Chloride [Klor-Con 10] 1 tab PO DAILY 01/30/23 Amlodipine [Norvasc*] 10 mg PO DAILY #30 tab 02/07/23 - Past Medical/Surgical History Diabetic: Yes -: HTN -: DM -: sleep apnea -: CHF -: CKD -: appendectomy -: subtotal cholecystectomy november 05, 2019 -: ERCP november 06, 2019 Psychosocial/ Personal History: Patient lives at home with his family. - Family History Father Medical History: Hypertension, Diabetes - Social History Alcohol use: No CD- Drugs: No Caffeine use: Yes Place of Residence: Home Review of Systems 10-point ROS is otherwise unremarkable Physical Examination Temp Pulse Resp BP Pulse Ox 97.7 F 68 20 153/72 H 95 01/19/24 07:48 01/19/24 07:48 01/19/24 07:48 01/19/24 07:48 01/19/24 07:48 General: Alert, In no apparent distress HEENT: Atraumatic, PERRLA, Mucous membr. moist/pink, EOMI, Sclerae nonicteric Neck: Supple, 2+ carotid pulse no bruit, No LAD, Without JVD or thyroid abnormality Respiratory: Clear to auscultation bilaterally, Normal air movement Cardiovascular: Regular rate/rhythm, Normal S1 S2, Edema Gastrointestinal: Normal bowel sounds, No tenderness Musculoskeletal: No tenderness Integumentary: No rashes Neurological: Normal gait, Normal speech, Normal tone, Normal affect Lymphatics: No axilla or inguinal lymphadenopathy Laboratory Data (last 24 hrs) 01/18/24 01/18/24 01/18/24 15:34 15:34 15:34 WBC 8.30 Hgb 10.9 L Hct 31.7 L Plt Count 198 PT 12.0 INR 1.07 Sodium 141 Potassium 5.2 H BUN 41 H Creatinine 3.14 H Glucose 182 H Magnesium 1.7 Total Bilirubin 0.4 AST 28 ALT 33 Alkaline Phosphatase 146 H - Problems (1) Unstable angina Current Visit: Yes Status: Acute Plan: will get coronary angiogram today ASA 81 mg daily Lipitor 40 mg daily (2) Acute on chronic diastolic (congestive) heart failure Current Visit: Yes Status: Acute Plan: continue IV lasix continue coreg, lisinopril get echo (3) HTN (hypertension) Current Visit: Yes Status: Acute Plan: continue medications as above. (4) HLD (hyperlipidemia) Current Visit: Yes Status: Acute Plan: lipitor 40 mg daily
[2024-01-19] MEDS: FUROSEMIDE 40 MG/4 ML VIAL IV SCH (08:19)
[2024-01-19] MEDS: lisinopriL 5 MG TAB PO SCH (08:21)
[2024-01-19] MEDS: PANTOPRAZOLE 40MG TABLET PO SCH (08:21)
[2024-01-19] MEDS: ASPIRIN EC 81 MG TAB PO SCH (08:21)
[2024-01-19] MEDS: MAGNESIUM SULFATE 1 gm IVPB 1 GM/100 ML BAG IV ONE (08:21)
[2024-01-19] MEDS: ALBUMIN HUMAN 25% 100 ML IV ONE (08:22)
[2024-01-19] MEDS: SOD FERRIC GLUC COMPLX/SUCROSE 125 MG in NA CHLORIDE 0.9% 100 ML IV SCH (10:13)
[2024-01-19] MEDS ORDERED: HEPA 1000U/500MLS 2,000 UNIT/1,000 ML BAG IV ONE (13:21)
[2024-01-19] MEDS ORDERED: HEPARIN 10,000 UNIT/10 ML VIAL IV ONE (13:26)
[2024-01-19] MEDS ORDERED: LIDOCAINE 1% 20 ML MDV ONE (13:26)
[2024-01-19] MEDS ORDERED: FENTANYL CITR 100 MCG/2 ML ONE (13:26)
[2024-01-19] MEDS ORDERED: HEPARIN 5000 UNIT/ML 1 ML VIAL ONE (13:26)
[2024-01-19] MEDS ORDERED: MIDAZOLAM HCL 2 MG/2 ML INJ ONE (13:27)
[2024-01-19] MEDS ORDERED: TICAGRELOR 90 MG TABLET PO ONE (14:20)
--- NOTE | 2024-01-19 16:15 | OP ---
Date of Procedure: 01/19/2024 Surgeon: Cristo Reyes Procedures Performed: 1.Selective coronary angiogram. 2.PCI of the OM2 with Synergy 2.25 x 12 mm drug-eluting stent. Indication For Procedures: Unstable angina. Complications: None. Estimated Blood Loss: Less than 50 cc. Access: Right radial, closed by TR band. Sedation Time: 30 minutes with 1 of Versed and 25 of fentanyl. Description Of Procedure: After risks, and benefits, and alternatives were explained to the patient, patient agreed to proceed with procedure and signed informed consent. The patient was brought back to the laborer adjustable steel joist, prepped and draped in a sterile fashion. Time-out was performed. Sedation was admi nistered. Next, an ultrasound-guided micropuncture technique, access was obtained. [place] 4.0 cathet er was advanced over a J-wire. This catheter was used for selective angiogram of the left and right coronary systems and this catheter was later exchanged for an EBU 3.0 mm guide to the left main. Hep jerri was administered. ACT was therapeutic. Runthrough wire was passed across the lesion and pre-di lated the lesions with an NC 2.25 mm balloon. Next, Synergy 2.25 x 12 mm drug-eluting stent was plac ed to close the lesion. Final angiogram shows TABATHA-3 flow. Wire was removed. Guide was removed ove r a J-wire and sheath was removed and TR band was applied. The patient was moved back to recovery ro in stable condition. Findings: 1.Left main is normal. 2.LAD; proximal mild luminal irregularities. The mid to distal diffuse 50% to 60% disease and dista l mild luminal irregularities. 3.D1; it is small with a proximal 90% disease. 4.Left circ; mild luminal irregularities. 5.OM1 small. 6.OM2; medium-size artery movement with proximal to mid 99% disease, status post PCI with Synergy 2. 25 x 12 mm drug-eluting stent. 7.RCA; large, dominant, proximal 40% disease and mid to distal mild LI. RPDA and RPLV, mild LI. Assessment And Plan: 1.Significant OM2 disease, status post PCI with Synergy 2.25 x 12 mm drug-eluting stent. 2.Moderate mid LAD disease, outpatient stress test needs to be done. Due to patient having CKD, so far was not done. 3.Significant diagonal 1 disease, small artery for any intervention. The plan will be: 1.Aspirin 81 mg daily for life. 2.Brilinta 180 mg p.o. x1 in the lab, continue Brilinta 90 mg p.o. b.i.d. for 12 months. DULCE/QUIANA Voice ID: [id number] Report ID: [id number]
[2024-01-19 20:49] VITALS: BMI 43.7
[2024-01-19] MEDS: ACETYLCYST 20% 800 MG/4 ML VIAL PO SCH (21:00)
[2024-01-19] MEDS: D5W 1,000 ML with NA BICARB 8.4% 100 MEQ IV SCH (21:32)
[2024-01-19] MEDS: TICAGRELOR 90 MG TABLET PO SCH (21:32)
[2024-01-19] MEDS: ATORVASTATIN 40 MG TAB PO SCH (21:32)
[2024-01-19] MEDS ORDERED: NACHLORIDE 0.45% 1,000 ML IV SCH (23:45)
--- NOTE | 2024-01-20 01:54 | CON ---
Date of Consultation: 01/19/2024 Chief Complaint: Acute kidney injury, cardiorenal syndrome, chronic kidney disease. The patient is admitted to the hospital because of chest pain and congestive heart failure exacerbation. History Of Present Illness: He is a 68-year-old man with past medical history significant for diabetes mellitus with retinopathy, neuropathy, and nephropathy. He has history of hypertension, hyperlipidemia, congestive heart failure, obesity, and chronic kidney disease stage 3. He arrived to emergency department and was admitted on January 18, 2024. Nephrology consultation was requested for acute kidney injury. The patient had chest pain, pressure like, which started prior to arrival in the emergency department. It was associated with some GI symptoms, including diarrhea, nausea, vomiting, although he was also complaining of shortness of breath. He denied fever, ill contact, cough, or syncope. Cardiology consultation was requested for congestive heart failure. Previous echo showed ejection fraction of 60% to 65%. He was found to have diastolic dysfunction. He has been seen for chronic kidney disease by our nephrology group, and followed up with and Dr. Murdock. The patient underwent cardiac catheterization today. He was started on diuretic for fluid overload and 3+ edema. He required 4 L of oxygen with nasal cannula to treat hypoxemic respiratory failure. EKG done in the emergency room showed sinus tachycardia, left axis bifascicular block, nonspecific diffuse ST-T changes without evidence of ST elevation. The patient was admitted to the hospital, had workup done with Cardiology, and today he underwent cardiac catheterization. Past Medical History: Diabetes mellitus with peripheral neuropathy, nephropathy, and retinopathy; hypertension; sleep apnea; obesity; congestive heart failure, diastolic dysfunction; chronic kidney disease stage 3; appendectomy; cholecystectomy; ERCP. Family History: Hypertension and diabetes. Social History: Denies alcohol. Denies drugs. Review of Systems: The patient underwent cardiac catheterization. He cannot provide review of systems. He denies shortness of breath, chest pain, nausea, diarrhea after admission. Physical Examination: General: The patient is obese. HEENT: Atraumatic, normocephalic. Neck: Supple. Respiratory: Few rhonchi. Heart: S1 and S2. Abdomen: Soft, benign. Nontender. Extremities: Edema present in both legs. Neurologic: Moving extremities. Cranial nerves intact. Laboratory Data: Hemoglobin 10.9, WBC 8.3, platelet count 198,000. Sodium 141, potassium 5.2, BUN 41, creatinine 3.14. Magnesium 1.7. Glucose 182. Impression And Plan: 1. Angina with coronary artery disease. The patient is undergoing workup to rule out acute coronary syndrome with myocardial infarction. The patient has congestive heart failure with preserved ejection fraction. The patient came to the hospital with chest pain, which resolved. In the emergency room, he was found to have decompensated congestive heart failure, cardiorenal syndrome, and acute on chronic kidney injury. He has nonoliguric urine output. He has a risk of contrast-induced nephropathy. He will continue Mucomyst. Lasix was stopped in view of contrast exposure. Plan is to resume aggressive diuretics when renal function stable. The patient already had some diuretic effect and shortness of breath is stabilized. Plan is to initiate mild hydration for acute on chronic kidney injury and contrast exposure. 2. The patient has diabetes. Continue to monitor blood glucose and adjust insulin therapy. 3. The patient was consulted by Cardiology, was found to have elevated troponin, and underwent cardiac catheterization. 4. Hyperkalemia. The patient was treated with Lokelma. Potassium level has improved. 5. Chronic kidney disease stage 3. Serum creatinine level is elevated over the previous baseline. Avoid nephrotoxic medication. The patient will continue diuretic for cardiorenal syndrome. DICK/MODL Voice ID: [id number] Report ID: [id number] TOÑA
[2024-01-20 06:27] LABS: Absolute Basophils 0.1 K/uL (0-0.5); Absolute Eosinophils 0.2 K/uL (0-0.5); Absolute Lymphocytes (CBC) 1.1 K/uL (0.7-4.9); Absolute Monocytes 0.4 K/uL (0.1-1.3); Eosinophils % 2.7 % (0-4.4); Hematocrit 28.8 % (39.6-49.0); Hemoglobin 9.5 g/dL (13.6-17.9); MCH 30.8 pg (27.0-35.0); MCHC 32.9 g/dL (32.0-36.0); MCV 93.4 fL (80-100); MPV 8.7 fL (7.6-11.3); Monocytes % 6.1 % (3.3-12.3); Neutrophils % 74.2 % (41.7-73.7); Nucleated Red Blood Cells % 0.1 % (0-0); Platelets 179 thou/uL (152-406); RBC Red Blood Cell Count 3.08 M/uL (4.33-5.43); Red Cell Distribution Width 14.9 % (12.1-15.2)
[2024-01-20 06:49] LABS: Albumin 2.3 g/dL (3.4-5.0); Albumin/Globulin Ratio 0.6 (1.1-1.8); Anion Gap 10.2 mEq/L (5.0-15.0); Bilirubin Total 0.5 mg/dL (0.2-1.0); Globulin 3.6 g/dL (2.3-3.5); Phosphorus 4.5 mg/dL (2.5-4.9); Potassium 4.2 mEq/L (3.5-5.1); Protein, Total 5.9 g/dL (6.4-8.2)
--- NOTE | 2024-01-20 07:49 | RAD REPORT ---
EXAM DESCRIPTION: US - Renal Ultrasound-Complete - 01/20/2024 6:55 am CLINICAL HISTORY: riley on ckd COMPARISON: Renal Ultrasound-Complete dated 02/02/2023 FINDINGS: Both kidneys are normal in size, shape and echotexture. The right kidney measures 12.2 cm. No hydronephrosis, focal mass or perinephric fluid. The left kidney measures 12.6 cm. No hydronephrosis, focal mass or perinephric fluid. The urinary bladder is incompletely distended without gross abnormality seen. IMPRESSION: Unremarkable renal sonogram. No hydronephrosis.
[2024-01-20] MEDS ORDERED: FUROSEMIDE 20 MG/ 2ML VIAL IV SCH (09:00)
[2024-01-20] MEDS: ACETYLCYST 20% 800 MG/4 ML VIAL PO SCH (09:13)
[2024-01-20] MEDS: FUROSEMIDE 40 MG/4 ML VIAL IV SCH ×2 (09:13→21:30)
--- NOTE | 2024-01-20 10:23 | P.PN ---
Date of Service: 01/20/24 Subjective: No c/o pain, denies SOB Review of Systems 10-point ROS is otherwise unremarkable General: As per HPI Respiratory: As per HPI Cardiovascular: Other (denies chest pain) Physical Examination - Vital Signs reviewed - Physical Exam General: Alert, Oriented x3, Obese HEENT: Atraumatic, Normocephalic Neck: Supple Respiratory: Normal air movement Cardiovascular: Regular rate/rhythm, Normal S1 S2, Edema with moderate impr ovement Capillary refill: <2 Seconds Gastrointestinal: Soft and benign Musculoskeletal: No clubbing Integumentary: Other (pallor) Neurological: Normal speech, Normal tone, Normal affect Lymphatics: No axilla or inguinal lymphadenopathy External genitalia: Deferred Rectal: Deferred Assessment And Plan - Plan Angina with CAD, HTN, HLD HFpEF Patient's shortness of breath has worsened. Patient's PND/orthopnea has worsened. Edema of the lower extremities has worsened. Patient with decompensated congestive heart failure. Dyspnea on exertion. Echocardiogram (last ECHO here on 01/31/23 EF 60-65%, GRADE 1 Diastolic dysfunction) Lisinopril Coreg Cardiology consultation - Dr. Reyes took pt to the manufacturing laborer 01/19 - +PCI Aggressive diuresis Statin Strict Is & Os Repeat chest x-ray Daily weight Education regarding diet and treatment of congestive heart failure with preserved EF 01/21/[address] Reyes "Assessment And Plan: 1. Significant OM2 disease, status post PCI with Synergy 2.25 x 12 mm drug- eluting stent. 2. Moderate mid LAD disease, outpatient stress test needs to be done. Due to patient having CKD, so far was not done. 3. Significant diagonal 1 disease, small artery for any intervention. The plan will be: 1. Aspirin 81 mg daily for life. 2. Brilinta 180 mg p.o. x1 in the lab, continue Brilinta 90 mg p.o. b.i.d. for 12 months." Diabetes monitor and trend SSI with moderate coverage CL for now CKD with ARLENE creat 3.14 with GFR 21, 01/21/24 worsening - Dr. Juarez following aggressive diuresis with some IVF monitor and trend Dr. Juarez/Mathieu - following Ferritin/Iron level 01/18 creatinine 3.5/GFR 18 lasix increased to 40mg TID iron 33, will give IV 01/20 3. VTE/GI prophylaxis asa, Brilinta/protonix Full code <Ayesha Nguyen - Last Filed: 01/20/24 10:25> Pt seen and examined. I agree with the note by the QUARTER INSPECTOR. Cardiology did cardiac cath on 01/19/24 and placed a stent. Will continue brilinta and aspirin for at least 1 years. There is moderate mid LAD disease, outpatient stress test needs to be done. Will continue diuretic, monitor I/O and renal function. Nephrology is following. Continue DM regimen. Echo shows EF 60 - 65% with grade I diastolic dysfunction. <Dalila Adan - Last Filed: 01/20/24 11:54>
[2024-01-20] MEDS: HYDRALAZINE HCL 20 MG/ML VIAL IV PRN ×2 (10:55→13:58)
--- NOTE | 2024-01-20 11:33 | P.PN ---
Subjective Date of Service: 01/20/24 Chief Complaint: CP, CHF, CKD with ARLENE Subjective: No new changes, No C/O voiced, Tolerating diet, Ambulating, Improving Review of Systems 10-point ROS is otherwise unremarkable Physical Examination - Vital Signs Temperature: 98.0 F Blood Pressure: 177/70 Pulse: 59 Respirations: 18 Pulse Ox (%): 98 - Physical Exam General: Alert, In no apparent distress HEENT: Atraumatic, PERRLA, EOMI Neck: Supple, JVD not distended Respiratory: Clear to auscultation bilaterally, Normal air movement Cardiovascular: Regular rate/rhythm, Normal S1 S2, Edema Gastrointestinal: Normal bowel sounds, No tenderness Musculoskeletal: No tenderness Integumentary: No rashes Neurological: Normal speech, Normal tone, Normal affect Lymphatics: No axilla or inguinal lymphadenopathy - Studies Medications List Reviewed: Yes Assessment And Plan - Current Problems (Diagnosis) (1) Unstable angina Current Visit: Yes Status: Acute Plan: coronary angiogram done with PCI to OM2 ASA 81 mg daily Brilinta 90 mg po BID for 12 months Lipitor 40 mg daily outpatient stress test to check on LAD moderate disease. (2) Acute on chronic diastolic (congestive) heart failure Current Visit: Yes Status: Acute Plan: continue IV lasix continue coreg, lisinopril get echo (3) HTN (hypertension) Current Visit: Yes Status: Acute Plan: continue medications as above. (4) HLD (hyperlipidemia) Current Visit: Yes Status: Acute Plan: lipitor 40 mg daily
--- NOTE | 2024-01-20 12:10 | P.PN ---
Subjective Date of Service: 01/20/24 Chief Complaint: CP, CHF, CKD with ARLENE Subjective: No new changes Physical Examination - Vital Signs Temperature: 98.0 F Blood Pressure: 177/70 Pulse: 59 Respirations: 18 Pulse Ox (%): 98 - Physical Exam General: Other (no acute distress) HEENT: Atraumatic, Normocephalic Neck: Supple, JVD not distended Respiratory: Other (symmetric chest expansion) Cardiovascular: No rubs, No murmurs Gastrointestinal: Soft and benign, No rebound Musculoskeletal: No clubbing Integumentary: No warmth Neurological: Other (nonfocal) Urinary: Other (no bladder distention) External genitalia: Deferred Rectal: Deferred - Studies Medications List Reviewed: Yes Assessment And Plan - Plan # ARLENE 2/2 prerenal state + ATN serum creatinine increased to 3.8 Follow-up random urine chemistry liberal by mouth fluid intake at least 2 L per day # CKD 3 presumed to be secondary to hypertensive nephrosclerosis and diabetic nephropathy Baseline serum creatinine 2.2-2.5 Monitor renal panel # Chest pain, history of coronary artery disease Status post left heart catheterization Per cardiology # Chronic diastolic heart failure TTE on 01/31/2023 showed LVEF normal at 67% Do not limit by mouth fluid intake unless pt develops hyponatremia less than 130 meq per liter # Acidosis Received IV bicarb # Hypertension BP above goal Start amlodipine 5 mg by mouth daily # Anemia Monitor CBC # DM 2 Management per primary team
[2024-01-20] MEDS: AMLODIPINE 5 MG TAB PO SCH (12:38)
[2024-01-20] MEDS ORDERED: NITROGLYCERIN 0.1 MG/HR (2.5 MG) PATCH TD PRN (17:10)
[2024-01-21 06:16] LABS: Absolute Basophils 0.1 K/uL (0-0.5); Absolute Eosinophils 0.2 K/uL (0-0.5); Absolute Monocytes 0.6 K/uL (0.1-1.3); Absolute Neutrophil 5.6 K/uL (1.8-8.0); Basophils % 0.9 % (0-1.3); Eosinophils % 2.8 % (0-4.4); Hemoglobin 9.9 g/dL (13.6-17.9); Lymphocytes % 13.7 % (15.3-44.8); MCH 30.6 pg (27.0-35.0); MCHC 32.9 g/dL (32.0-36.0); MCV 93.2 fL (80-100); MPV 8.8 fL (7.6-11.3); Monocytes % 7.7 % (3.3-12.3); Neutrophils % 74.9 % (41.7-73.7); Platelets 196 thou/uL (152-406); RBC Red Blood Cell Count 3.22 M/uL (4.33-5.43); Red Cell Distribution Width 14.9 % (12.1-15.2)
[2024-01-21 06:31] LABS: Albumin 2.3 g/dL (3.4-5.0); Albumin/Globulin Ratio 0.6 (1.1-1.8); Anion Gap 11.8 mEq/L (5.0-15.0); Bilirubin Total 0.5 mg/dL (0.2-1.0); Globulin 3.7 g/dL (2.3-3.5); Magnesium 1.7 mg/dL (1.6-2.4); Phosphorus 4.8 mg/dL (2.5-4.9); Potassium 3.8 mEq/L (3.5-5.1)
[2024-01-21] MEDS: POTASSIUM CL SA 10 MEQ TAB PO ONE (08:58)
[2024-01-21] MEDS: MAGNESIUM SULFATE 1 gm IVPB 1 GM/100 ML BAG IV ONE (08:59)
--- NOTE | 2024-01-21 09:16 | P.PN ---
Subjective Date of Service: 01/21/24 Chief Complaint: CP, CHF, CKD with ARLENE Subjective: No new changes (pt states he has increased mucus. Discussed side effects and indication for acetylcysteine) <Miri Nguyenkristie Whatley - Last Filed: 01/21/24 09:11> Date of Service: 01/21/24 <Dalila Adan - Last Filed: 01/21/24 11:18> Review of Systems 10-point ROS is otherwise unremarkable General: As per HPI ENT: Other (increased mucus/secretions) <Miri Nguyenkristie Whatley - Last Filed: 01/21/24 09:11> Physical Examination - Vital Signs Temperature: 98.0 F Blood Pressure: 147/68 Pulse: 63 Respirations: 18 Pulse Ox (%): 98 - Physical Exam General: Alert, In no apparent distress, Oriented x3, Obese HEENT: Atraumatic, Normocephalic Neck: Supple Respiratory: Normal air movement, Crackles/rales Cardiovascular: Regular rate/rhythm, Normal S1 S2, Edema Capillary refill: <2 Seconds Gastrointestinal: Normal bowel sounds, Soft and benign Musculoskeletal: No clubbing Integumentary: Other (Pallor) Neurological: Normal speech, Normal affect, Abnormal tone Lymphatics: No axilla or inguinal lymphadenopathy Urinary: Boss catheter External genitalia: Deferred Rectal: Deferred - Studies Medications List Reviewed: Yes <Miri Nguyeny Chacorta - Last Filed: 01/21/24 09:11> Assessment And Plan - Plan Angina with CAD, HTN, HLD HFpEF Patient's shortness of breath has worsened. Patient's PND/orthopnea has worsened. Edema of the lower extremities has improved mildly. Patient with decompensated congestive heart failure. Dyspnea on exertion. Echocardiogram (last ECHO here on 01/31/23 EF 60-65%, GRADE 1 Diastolic dysfunction), order placed for Monday Lisinopril -held for increased creatinine Coreg continued, nephrology added amlodipine Hydralazine as needed, Nitropaste as needed Cardiology consultation -Dr. Reyes following and performed left heart cath with PCI of the OM, placed on Brilinta Aggressive diuresis, diuresis medications decreased second to increasing ARLENE Statin continue Strict Is & Os -Boss intact Daily weight Education regarding diet and treatment of congestive heart failure with preserved EF Diabetes monitor and trend SSI with moderate coverage CL for now, advanced to renal CKD with ARLENE creat 3.14 with GFR 21 diuresis per nephrology monitor and trend Consult Dr. Juarez/Mathieu-following Ferritin/Iron level 01/18 creatinine 3.5/GFR 18 lasix increased to 40mg TID and then decreased to twice daily Creatinine 01/20 3.96 Iron deficiency anemia iron 33, will give IV, continues VTE/GI prophylaxis asa, Brilinta/protonix Full code <WendyAyeshakristie Whatley - Last Filed: 01/21/24 09:11> - Plan Pt seen and examined. I agree with the note by the YARN WEIGHT AND STRENGTH TESTER. Cardiology did cardiac cath on 01/19/24 and placed a stent. Will continue brilinta and aspirin for at least 1 years. There is moderate mid LAD disease, outpatient stress test needs to be done. Will continue diuretic, monitor I/O and renal function. Nephrology is following. Continue DM regimen. Echo shows EF 60 - 65% with grade I diastolic dysfunction. Will optimize BP regimen. <Dalila Adan - Last Filed: 01/21/24 11:18>
--- NOTE | 2024-01-21 11:13 | P.PN ---
Subjective Date of Service: 01/21/24 Chief Complaint: CP, CHF, CKD with ARLENE Subjective: Other (No urinary complaints.) Physical Examination - Vital Signs Temperature: 98.0 F Blood Pressure: 147/68 Pulse: 63 Respirations: 18 Pulse Ox (%): 98 - Physical Exam General: In no apparent distress HEENT: Atraumatic, Normocephalic Neck: Supple, JVD not distended Respiratory: Other (symmetric chest expansion) Cardiovascular: No rubs, No murmurs Gastrointestinal: Soft and benign, No rebound Musculoskeletal: No clubbing Integumentary: No warmth Neurological: Other (nonfocal) Urinary: Other (no bladder distention) External genitalia: Deferred Rectal: Deferred - Studies Medications List Reviewed: Yes Assessment And Plan - Plan # ARLENE 2/2 prerenal state + ATN Serum creatinine increased to 3.9 D5W IV x 1 L today Urine chemistry non-prerenal Has nephrotic-range proteinuria [place] by mouth fluid intake at least 2 L per day # CKD 3 presumed to be secondary to hypertensive nephrosclerosis and diabetic nephropathy Baseline serum creatinine 2.2-2.5 Monitor renal panel # Nephrotic-range likely secondary to DM nephropathy 7.8 g proteinuria on random UPCR F/u 25OHD, replete if low Statin F/u SPEP, rest of proteinuria workup as outpatient # Chest pain, history of coronary artery disease Status post left heart catheterization Per cardiology # Chronic diastolic heart failure TTE on 01/31/2023 showed LVEF normal at 67% Do not limit by mouth fluid intake unless pt develops hyponatremia less than 130 meq per liter # Acidosis Received IV bicarb # Hypertension BP above goal Start amlodipine 5 mg by mouth daily # Anemia Monitor CBC # DM 2 Management per primary team
--- NOTE | 2024-01-21 11:32 | P.PN ---
Subjective Date of Service: 01/21/24 Chief Complaint: CP, CHF, CKD with ARLENE Subjective: No new changes, No C/O voiced, Tolerating diet, Ambulating, Improving Review of Systems 10-point ROS is otherwise unremarkable Physical Examination - Vital Signs Temperature: 98.0 F Blood Pressure: 147/68 Pulse: 63 Respirations: 18 Pulse Ox (%): 98 - Physical Exam General: Alert, In no apparent distress HEENT: Atraumatic, PERRLA, EOMI Neck: Supple, JVD not distended Respiratory: Clear to auscultation bilaterally, Normal air movement Cardiovascular: Regular rate/rhythm, Normal S1 S2 Gastrointestinal: Normal bowel sounds, No tenderness Musculoskeletal: No tenderness Integumentary: No rashes Neurological: Normal speech, Normal tone, Normal affect Lymphatics: No axilla or inguinal lymphadenopathy - Studies Medications List Reviewed: Yes Assessment And Plan - Current Problems (Diagnosis) (1) Unstable angina Current Visit: Yes Status: Acute Plan: coronary angiogram done with PCI to OM2 ASA 81 mg daily Brilinta 90 mg po BID for 12 months Lipitor 40 mg daily outpatient stress test to check on LAD moderate disease. (2) Acute on chronic diastolic (congestive) heart failure Current Visit: Yes Status: Acute Plan: Patient net balance is positive, i would recommend increasing Lasix to 40 mg IV TID, patient with bilateral lower extremities edema, i know creatinine is worsening but that can be cardiorenal congestion, please discuss with Nephrology for increasing Lasix. continue coreg, lisinopril get echo in am to check for filling pressures (3) HTN (hypertension) Current Visit: Yes Status: Acute Plan: continue medications as above. (4) HLD (hyperlipidemia) Current Visit: Yes Status: Acute Plan: lipitor 40 mg daily
[2024-01-21] MEDS: D5W 1,000 ML IV SCH (12:33)
[2024-01-21 13:50] LABS: UR PROTEIN 396.1 mg/dL (<11.9); Urine Protein/Creatinine Ratio 7.77 ratio (<0.15)
[2024-01-21 16:05] LABS: C.diff Antigen/Toxin Ag neg : Tox neg (NEG : NEG); CDIFF INTERNAL NEG CONTROL White Background (WHITE BKGD); STOOL CONSISTENCY Liquid/Semi-Solid
[2024-01-21] MEDS: FUROSEMIDE 40 MG/4 ML VIAL IV SCH (17:15)
[2024-01-21] MEDS: LOPERAMIDE HCL 2 MG CAPSULE PO PRN (17:15)
[2024-01-22 06:32] LABS: Absolute Basophils 0.1 K/uL (0-0.5); Absolute Eosinophils 0.2 K/uL (0-0.5); Absolute Lymphocytes (CBC) 0.8 K/uL (0.7-4.9); Absolute Monocytes 0.5 K/uL (0.1-1.3); Absolute Neutrophil 5.7 K/uL (1.8-8.0); Basophils % 0.8 % (0-1.3); Eosinophils % 2.6 % (0-4.4); Hematocrit 30.1 % (39.6-49.0); Lymphocytes % 10.9 % (15.3-44.8); MCH 30.7 pg (27.0-35.0); MCHC 33.2 g/dL (32.0-36.0); MCV 92.4 fL (80-100); MPV 8.7 fL (7.6-11.3); Monocytes % 6.3 % (3.3-12.3); Neutrophils % 79.4 % (41.7-73.7); Nucleated Red Blood Cells % 0.1 % (0-0); Platelets 203 thou/uL (152-406); RBC Red Blood Cell Count 3.26 M/uL (4.33-5.43); Red Cell Distribution Width 14.4 % (12.1-15.2)
[2024-01-22 06:50] LABS: Albumin 2.4 g/dL (3.4-5.0); Albumin/Globulin Ratio 0.6 (1.1-1.8); Anion Gap 13.9 mEq/L (5.0-15.0); Bilirubin Total 0.7 mg/dL (0.2-1.0); Globulin 3.7 g/dL (2.3-3.5); Magnesium 1.8 mg/dL (1.6-2.4); Phosphorus 4.9 mg/dL (2.5-4.9); Potassium 3.9 mEq/L (3.5-5.1); Protein, Total 6.1 g/dL (6.4-8.2)
--- NOTE | 2024-01-22 08:25 | P.PN ---
Date of Service: 01/22/24 subjective Admitted with unstable angina, is status post heart cath, Noted to have acute on chronic heart failure, nephrology managing diuretics, Review of Systems 10-point ROS is otherwise unremarkable General: As per HPI ENT: Other (increased mucus/secretions) Physical Examination - Vital Signs reviewed - Physical Exam General: Alert, In no apparent distress, Oriented x3, Obese HEENT: Atraumatic, Normocephalic Neck: Supple Respiratory: Normal air movement, Crackles/rales Cardiovascular: Regular rate/rhythm, Normal S1 S2, Edema Capillary refill: <2 Seconds Gastrointestinal: Normal bowel sounds, Soft and benign Musculoskeletal: No clubbing Integumentary: Other (Pallor) Neurological: Normal speech, Normal affect, Abnormal tone Lymphatics: No axilla or inguinal lymphadenopathy Urinary: Boss catheter External genitalia: Deferred Rectal: Deferred Assessment And Plan - Plan Acute on chronic diastolic heart failure HFpEF Chest pain secondary to ustable Angina Status post angiogram with PCI stent Started on Brilinta Cardiology did cardiac cath on 01/19/24 and placed a stent. Patient's shortness of breath has worsened. Patient's PND/orthopnea has worsened. Edema of the lower extremities has improved mildly. Patient with decompensated congestive heart failure. Dyspnea on exertion. Echocardiogram (last ECHO here on 01/31/23 EF 60-65%, GRADE 1 Diastolic dysfunction), order placed for Monday Lisinopril -held for increased creatinine Coreg continued, nephrology added amlodipine Hydralazine as needed, Nitropaste as needed Cardiology consultation -Dr. Reyes following and performed left heart cath with PCI of the OM, placed on Brilinta Aggressive diuresis, diuresis medications decreased second to increasing ARLENE Statin continue Strict Is & Os -Boss intact Daily weight Education regarding diet and treatment of congestive heart failure with preserved EF Diabetes monitor and trend SSI with moderate coverage CL for now, advanced to renal CKD with ARLENE Fluid volume overload, creat 3.14 with GFR 21 diuresis per nephrology monitor and trend Consult Dr. Juarez/Mathieu-following Ferritin/Iron level 01/18 creatinine 3.5/GFR 18 lasix increased to 40mg TID and then decreased to twice daily Creatinine 01/20 3.96 Iron deficiency anemia iron 33, will give IV, continues CAD HTN HLD Per cardiology VTE/GI prophylaxis asa, Brilinta/protonix Code full code Time with patient 30-minute <Stacey Jerome - Last Filed: 01/22/24 08:19> Pt seen and examined. I agree with the note by the CLIP WRAPPER. Cardiology did cardiac cath on 01/19/24 and placed a stent. Will continue brilinta and aspirin for at least 1 years. There is moderate mid LAD disease, outpatient stress test needs to be done. Will continue diuretic, monitor I/O and renal function. Nephrology is following. Continue DM regimen. Echo shows EF 60 - 65% with grade I diastolic dysfunction. Will optimize BP regimen. Will dc once cleared by Nephrology and Cardiology. <Dalila Adan - Last Filed: 01/22/24 11:05>
[2024-01-22] MEDS: POTASSIUM CL SA 10 MEQ TAB PO ONE (08:26)
[2024-01-22] MEDS: MAGNESIUM SULFATE 1 gm IVPB 1 GM/100 ML BAG IV ONE (08:26)
--- NOTE | 2024-01-22 08:34 | P.DS ---
Admission Date: 01/18/24 Discharge Date: 01/22/24 Disposition: ROUTINE DISCHARGE Reason for Admission: CP, CHF, CKD with ARLENE Brief History of Present Illness: Mr. Friedman is a 68-year-old male with a past medical history of diabetes, with retinopathy and neuropathy, hypertension, hyperlipidemia, CHF, obesity, and CKD. He arrives to the emergency department today with chest pain and shortness of breath. He states the chest pressure started just prior to arrival to the emergency department. It was associated with nausea, diarrhea, shortness of breath. He denies fever, ill contacts, cough, or syncope. He was seen by Dr. Villa in January of last year and had an echo that showed preserved ejection fraction of 60 to 65% with grade 1 diastolic dysfunction. He is also followed by Dr. Juarez and Mathieu for CKD. At bedside he is alert and oriented, vital signs are 142/77, 101, 22, 98%, with significant fluid overload with 3+ pitting edema to the lower extremities. He is on 4 L of oxygen per nasal cannula. His EKG in the emergency department showed a sinus tachycardia with a leftward axis bifascicular block with nonspecific diffuse ST-T changes without evidence of acute ischemia. We will admit him for aggressive diuresis, serial enzymes, further evaluation, and consultation to cardiology and nephrology. - Physical Exam General: Alert, In no apparent distress, Oriented x3, Obese HEENT: Atraumatic, Normocephalic Neck: Supple Respiratory: Crackles/rales, Expiratory wheezes Cardiovascular: Regular rate/rhythm, Normal S1 S2, Edema (3+pitting) Capillary refill: <2 Seconds Gastrointestinal: Normal bowel sounds, Soft and benign Musculoskeletal: No clubbing Integumentary: No rashes, Other (pallor) Neurological: Normal speech, Normal affect, Abnormal tone Lymphatics: No axilla or inguinal lymphadenopathy External genitalia: Deferre Hospital Course: Mr. Friedman is a 68-year-old male with a past medical history of diabetes, with retinopathy and neuropathy, hypertension, hyperlipidemia, CHF, obesity, and CKD. He arrives to the emergency department today with chest pain and shortness of breath. He states the chest pressure started just prior to arrival to the emergency department. He was noted to have unstable angina, acute on chronic diastolic heart failure, he was evaluated by cardiology, and nephrology. Condition improved with medication management by nephrology for acute heart failure, acute kidney injury. He is status post cardiac cath with PCI, cardiac cath on 01/19/24 and placed a stent. Patient tolerating diet, stable for discharge to home with follow-up appointment with primary care physician. PROBLEM: Acute on chronic diastolic heart failure follow-up with cardiology after Unstable angina-status post heart cath Will need to continue Brilinta for 1 year postcardiac cath, Will need outpatient stress test per cardiology LAD moderate disease. Brilinta 90 mg twice daily for 12-month started on 01-19-24 Aspirin 80 mg daily Lipitor 40 mg daily Coreg, 12.5 twice daily Lasix 40 mg daily Rad/Lab/Micro: Echocardiogram (last ECHO here on 01/31/23 EF 60-65%, GRADE 1 Diastolic dysfunction), Repeat echo 01/21 GOAL: Clear understanding of disease process INSTRUCTIONS: Physician Discharge Instructions: -Follow-up with PCP in 1 to 2 weeks -Please call [phone] if any questions regarding hospital stay -Please call nursing station at [phone] if any nursing or medication questions -Return to the emergency room if symptoms worsen Diet: ADA, low sodium Activity: Fall precautions Vital Signs/Physical Exam: Temp Pulse Resp BP Pulse Ox 98.0 F 63 18 147/68 H 98 01/22/24 07:09 01/22/24 07:09 01/22/24 07:09 01/22/24 07:09 01/22/24 07:09 Laboratory Data at Discharge: WBC 7.20 thou/uL (4.3-10.9) 01/22/24 06:09 Hgb 10.0 g/dL (13.6-17.9) L 01/22/24 06:09 Hct 30.1 % (39.6-49.0) L 01/22/24 06:09 Plt Count 203 thou/uL (152-406) 01/22/24 06:09 PT 12.8 SECONDS (9.4-12.5) H 01/19/24 06:50 INR 1.15 01/19/24 06:50 Sodium 141 mEq/L (136-145) 01/22/24 06:09 Potassium 3.9 mEq/L (3.5-5.1) 01/22/24 06:09 BUN 42 mg/dL (7-18) H 01/22/24 06:09 Creatinine 4.14 mg/dL (0.70-1.30) H 01/22/24 06:09 Glucose 123 mg/dL (74-106) H 01/22/24 06:09 Phosphorus 4.9 mg/dL (2.5-4.9) 01/22/24 06:09 Magnesium 1.8 mg/dL (1.6-2.4) 01/22/24 06:09 Total Bilirubin 0.7 mg/dL (0.2-1.0) 01/22/24 06:09 AST 19 U/L (15-37) 01/22/24 06:09 ALT 22 U/L (16-61) 01/22/24 06:09 Alkaline Phosphatase 108 U/L (45-117) 01/22/24 06:09 Triglycerides 216 mg/dL (<150) H 01/19/24 06:50 Cholesterol 210 mg/dL (<200) H 01/19/24 06:50 HDL Cholesterol 41 mg/dL (40-60) 01/19/24 06:50 Cholesterol/HDL Ratio 5.12 01/19/24 06:50 Home Medications: Aspirin 1 tab PO DAILY 10/11/19 Carvedilol [Coreg] 1 tab PO BID 01/30/23 Cetirizine HCl 1 tab PO DAILY PRN 01/30/23 Dapagliflozin Propanediol [Farxiga] 1 tab PO DAILY 01/30/23 Hydralazine [Apresoline*] 1 tab PO BID 01/30/23 Insulin Glargine,Hum.rec.anlog [Tobrigida [place]] 12 unit SQ BEDTIME 01/30/23 Pioglitazone HCl 1 tab PO DAILY 01/30/23 Potassium Chloride [Klor-Con 10] 1 tab PO DAILY 01/30/23 Amlodipine [Norvasc*] 10 mg PO DAILY #30 tab 02/07/23 Amlodipine [Norvasc*] 5 mg PO DAILY tab 01/22/24 Atorvastatin Calcium [Lipitor] 40 mg PO BEDTIME 30 Days #30 tab 01/22/24 Furosemide [Lasix] 40 mg PO DAILY 30 Days #30 tab 01/22/24 Ticagrelor [Brilinta*] 90 mg PO BID 30 Days #60 mg 01/22/24 Followup: OSMAN RAINEY [Primary Care Provider] -
--- NOTE | 2024-01-22 17:03 | P.PN ---
Subjective Date of Service: 01/22/24 Chief Complaint: CP, CHF, CKD with ARLENE Subjective: No new changes, No C/O voiced, Tolerating diet, Ambulating, Improving Review of Systems 10-point ROS is otherwise unremarkable Physical Examination - Vital Signs Temperature: 96.8 F Blood Pressure: 169/77 Pulse: 66 Respirations: 12 Pulse Ox (%): 95 - Physical Exam General: Alert, In no apparent distress HEENT: Atraumatic, PERRLA, EOMI Neck: Supple, JVD not distended Respiratory: Clear to auscultation bilaterally, Normal air movement Cardiovascular: Regular rate/rhythm, Normal S1 S2, Edema Gastrointestinal: Normal bowel sounds, No tenderness Musculoskeletal: No tenderness Integumentary: No rashes Neurological: Normal speech, Normal tone, Normal affect Lymphatics: No axilla or inguinal lymphadenopathy - Studies Medications List Reviewed: Yes Assessment And Plan - Current Problems (Diagnosis) (1) Unstable angina Current Visit: Yes Status: Acute Plan: coronary angiogram done with PCI to OM2 ASA 81 mg daily Brilinta 90 mg po BID for 12 months Lipitor 40 mg daily outpatient stress test to check on LAD moderate disease. (2) Acute on chronic diastolic (congestive) heart failure Current Visit: Yes Status: Acute Plan: Patient net balance is positive, despite increasing Lasix to 40 mg IV TID, patient with bilateral lower extremities edema, i know creatinine is worsening b ut that can be cardiorenal congestion, Patient report urine output is very low, with creatinine going up, would appreciate Nephrology input for Lasix drip vs transfer to tertiary center to prepare for possible need for dialysis. increase coreg to 25 mg po BID, Hold lisinopril Echo shows Normal systolic function with Diastolic dysfunction and elevated filling pressure (3) HTN (hypertension) Current Visit: Yes Status: Acute Plan: continue medications as above. (4) HLD (hyperlipidemia) Current Visit: Yes Status: Acute Plan: lipitor 40 mg daily
[2024-01-22] MEDS: PNEUMOCOCCAL VACCINE 0.5 ML IMVAC ONE (18:00)
[2024-01-22] MEDS: ONDANSETRON 4 MG/2 ML VIAL IV PRN (20:30)
--- NOTE | 2024-01-23 01:06 | PN ---
Date of Progress Note: 01/22/2024 Chief Complaint: Chest pain, congestive heart failure, chronic kidney disease, acute kidney injury, cardiorenal syndrome. Subjective: The patient developed cardiorenal syndrome. Serum creatinine level has risen. The latasha ent presented to the hospital with chest pain. He underwent cardiac catheterization. He received Mu comyst, and IV fluids were started in view of IV contrast exposure. Serum creatinine level has not i mproved. The patient has adequate p.o. fluid intake. Review of Systems: Denies chest pain, palpitation. Physical Examination: Lungs: Clear to auscultation bilaterally. Heart: S1, S2. Abdomen: Soft. Extremities: Minimal edema. Impression And Plan: 1.Acute on chronic kidney injury secondary to prerenal state and acute tubular necrosis in setting o f chronic cardiorenal syndrome. Serum creatinine level increased to 3.9. The patient received IV fl uids. Urine chemistry showed non-prerenal state, which goes along with acute tubular necrosis and ch ronic kidney disease. The patient has nephrotic range proteinuria. Currently, he is off CARMENCITA inhibit or due to acute kidney injury. 2.Chronic kidney disease stage 3 secondary to diabetic nephropathy and hypertensive nephrosclerosis. Baseline creatinine level was ranging before from 2.2 to 2.5. Monitor renal panel. Avoid nephroto xic medication. 3.Nephrotic range, likely secondary to diabetes mellitus, proteinuria of 7.8 g on random UPCR. Foll ow up 25-hydroxy vitamin D level. Replete if low. Continue statin. Follow up on serum protein elec trophoresis to rule out MGUS. 4.Chest pain, resolved. The patient has history of coronary artery disease, underwent left heart ca theterization. Further recommendation per Cardiology. 5.Chronic diastolic congestive heart failure. TTE showed normal ejection fraction of 67. The patie nt is undergoing echo today. 6.Acidosis. The patient received IV bicarbonate. 7.Hypertension. Blood pressure is above target range. Continue amlodipine. Medications were adjus hafsa. 8.Anemia due to chronic kidney disease. Monitor CBC and iron study. 9.Diabetes mellitus. Continue insulin. Avoid metformin due to acute on chronic kidney injury. EB/MODL Voice ID: [id number] Report ID: [id number]
[2024-01-23 06:04] LABS: Absolute Basophils 0.1 K/uL (0-0.5); Absolute Eosinophils 0.2 K/uL (0-0.5); Absolute Lymphocytes (CBC) 0.9 K/uL (0.7-4.9); Absolute Monocytes 0.5 K/uL (0.1-1.3); Absolute Neutrophil 5.6 K/uL (1.8-8.0); Basophils % 0.8 % (0-1.3); Eosinophils % 2.1 % (0-4.4); Hematocrit 29.1 % (39.6-49.0); Hemoglobin 9.4 g/dL (13.6-17.9); Lymphocytes % 11.8 % (15.3-44.8); MCH 30.3 pg (27.0-35.0); MCHC 32.4 g/dL (32.0-36.0); MCV 93.6 fL (80-100); MPV 9.1 fL (7.6-11.3); Monocytes % 7.5 % (3.3-12.3); Neutrophils % 77.8 % (41.7-73.7); Platelets 173 thou/uL (152-406); Red Cell Distribution Width 14.5 % (12.1-15.2)
[2024-01-23 06:26] LABS: Albumin 2.3 g/dL (3.4-5.0); Albumin/Globulin Ratio 0.6 (1.1-1.8); Bilirubin Total 0.6 mg/dL (0.2-1.0); Globulin 3.6 g/dL (2.3-3.5); Phosphorus 5.7 mg/dL (2.5-4.9); Protein, Total 5.9 g/dL (6.4-8.2)
--- NOTE | 2024-01-23 08:03 | ECHO ---
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-BC 2-DIMENSIONAL: YES M.MODE: YES DOPPLER: YES COLOR FLOW: YES TDS: PORTABLE: YES DEFINITY: BUBBLE STUDY: DIAGNOSIS: CONGESTIVE HEART FAILURE WITH CHRONIC KIDNEY DISEASE/ ACUTE KIDNEY INJURY CARDIAC HISTORY: CATHERIZATION: SURGERY: PROSTHETIC VALVE: PACEMAKER: MEASUREMENTS (cm) DIASTOLIC (NORMALS) SYSTOLIC (NORMALS) IVSd 1.1 (0.6-1.2) LA Diam 3.6 (1.9-4.0) LVEF 60-65% LVIDd 3.9 (3.5-5.7) LVIDs 2.8 (2.0-3.5) %FS 27% LVPWd 1.2 (0.6-1.2) Ao Diam 2.9 (2.0-3.7) 2 DIMENSIONAL ASSESSMENT: RIGHT ATRIUM: NORMAL LEFT ATRIUM: NORMAL RIGHT VENTRICLE: NORMAL LEFT VENTRICLE: NORMAL TRICUSPID VALVE: NORMAL MITRAL VALVE: NORMAL PULMONIC VALVE: NORMAL AORTIC VALVE: NORMAL PERICARDIAL EFFUSION: NONE AORTIC ROOT: NORMAL LEFT VENTRICULAR WALL MOTION: NORMAL DOPPLER/COLOR FLOW: GRADE II DIASTOLIC DYSFUNCTION COMMENTS: 1. NORMAL LEFT VENTRICULAR SYSTOLIC FUNCTION, EJECTION FRACTION 60-65%, NORMAL WALL MOTION 2. GRADE II DIASTOLIC DYSFUNCTION 3. ELEVATED FILLING PRESSURE (RIGHT ATRIUM GREATER THAN 20 mmHg) TECHNOLOGIST: NATHAN KWAN
[2024-01-23] MEDS: PNEUMOCOCCAL VACCINE 0.5 ML IMVAC ONE (09:00)
[2024-01-23] MEDS: ALBUMIN HUMAN 25% 100 ML IV SCH ×2 (11:08→17:33)
--- NOTE | 2024-01-23 18:02 | EKG ---
Test Date: 2024-01-18 Test Time: 15:24:18 Equipment Operator: MB MEASUREMENT RESULTS: Intervals: Rate: 103 NE: QRSD: 142 QT: 378 QTc: 495 [place] Pool: P: NE: QRS: -75 T: 57 INTERPRETIVE STATEMENTS: Wide QRS rhythm Right bundle branch block Left anterior fascicular block Bifascicular block Possible Anterolateral infarct, age undetermined Abnormal ECG Compared to ECG 10/24/2023 11:46:32 Uncertain supraventricular rhythm now present Myocardial infarct finding now present Sinus rhythm no longer present First degree AV block no longer present Bifascicular block still present Electronically Signed On 01-23-24 17:52:14 CDT by Cristo Reyes
--- NOTE | 2024-01-23 18:52 | P.PN ---
Date of Service: 01/23/24 subjective Reports nausea today, OOB to chair today Review of Systems 10 point review of system negative unless listed in HPI Physical Examination - Vital Signs reviewed - Physical Exam General: Alert, In no apparent distress, Oriented x3, Obese HEENT: Atraumatic, Normocephalic Neck: Supple Respiratory: Normal air movement, Crackles/rales Cardiovascular: Regular rate/rhythm, Normal S1 S2, Edema Capillary refill: <2 Seconds Gastrointestinal: Normal bowel sounds, Soft and benign Musculoskeletal: No clubbing Integumentary: Other (Pallor) Neurological: Normal speech, Normal affect, Abnormal tone Lymphatics: No axilla or inguinal lymphadenopathy Assessment And Plan - Plan Acute on chronic diastolic heart failure HFpEF Chest pain secondary to unstable Angina Status post angiogram with PCI stent Started on Brilinta Cardiology did cardiac cath on 01/19/24 and placed a stent. Patient's shortness of breath has worsened. Patient's PND/orthopnea has worsened. Edema of the lower extremities has improved mildly. Patient with decompensated congestive heart failure. Dyspnea on exertion. Echocardiogram (last ECHO here on 01/31/23 EF 60-65%, GRADE 1 Diastolic dysfunction), order placed for Monday Lisinopril -held for increased creatinine Coreg continued, nephrology added amlodipine Hydralazine as needed, Nitropaste as needed Cardiology consultation -Dr. Reyes following and performed left heart cath with PCI of the OM, placed on Brilinta Aggressive diuresis, diuresis medications decreased second to increasing ARLENE Statin continue Strict Is & Os -Boss intact Daily weight Education regarding diet and treatment of congestive heart failure with preserved EF Nausea vomiting acute possible secondary to uremia? Diet changed to full liquid, Diabetes monitor and trend SSI with moderate coverage CL for now, advanced to renal Acidosis Nephrology following, treated with IV bicarb hypertensive nephrosclerosis and diabetic nephropathy Nephrotic syndrome Nephrotic-range likely secondary to DM nephropathy Nephrology following CKD stage III with ARLENE Fluid volume overload creat 3.14 with GFR 21 diuresis per nephrology monitor and trend Consult Dr. Juarez/Mathieu-following Ferritin/Iron level 01/18 creatinine 3.5/GFR 18 lasix increased to 40mg TID and then decreased to twice daily Creatinine 01/20 3.96 Iron deficiency anemia Trend H&H CAD HTN HLD Per cardiology VTE/GI prophylaxis asa, Brilinta/protonix Code full code Time with patient 35-minute <Stacey Jerome - Last Filed: 01/23/24 18:39> Patient was seen and examined. Events of the last 24 hours have been noted. Spoke with with JEYSON regarding patient's clinical picture after evaluating and examining the patient independently. I performed a substantial part of the MDM during this patient's care today. I personally made or approved the documented management plan and acknowledge its risk of complications. I agree with the findings and documentation provided in the JEYSON's notes. <Adolfo Whitten - Last Filed: 01/29/24 03:09>
--- NOTE | 2024-01-23 21:33 | PN ---
Date of Progress Note: 01/23/2024 Subjective: Creatinine up to 4.7, diuretic on hold given albumin. Physical Examination: Vital signs: Temperature 98.1, pulse rate 58, blood pressure 126/58. General: Awake, alert, oriented, and looks chronically ill. He is obese and using oxygen. Neck: S upple. No elevated JVD. Heart: Regular rate and rhythm. Normal S1, S2. Chest: Decreased air entry to bases. Abdomen: Soft, nontender. Extremities: Trace edema. Laboratory Data: White count 7.3, hemoglobin 9.4, platelets 170. Sodium 141, potassium 4, BUN 46, c reatinine 4.7. Assessment And Plan: This patient with diabetic chronic kidney disease with proteinuria who was admi tted for congestive heart failure exacerbation. The patient received IV contrast, also noticed some fluctuation in the blood pressure. His creatinine started increasing from 3 to 4.7 today. Lasix was on hold today. 1.Acute kidney injury on diabetic chronic kidney disease, likely due to cardiorenal syndrome, contra st associated nephropathy and ischemic acute tubular necrosis. I agree to hold diuretic. Continue a lbumin renal dose medication. Avoid NSAID and contrast. Follow up serology workup. If no improveme nt in renal function, then the patient will require renal replacement therapy. 2.Diabetic chronic kidney disease. Baseline creatinine about 2.8 as above. Renal ultrasound showed no hydronephrosis. 3.Nephrotic range proteinuria, likely due to diabetes mellitus. Follow up serology workup. Hold on starting CARMENCITA and ARB. At this point, the patient is not a candidate for a SGLT2. 4.Acute on chronic heart failure with preserved ejection fraction. Echo showed right ventricular EF was 67% and high right atrial pressure. Hold diuretic as above. 5.Diabetes mellitus. Continue insulin. 6.Hypertension. Blood pressure is controlled at this time. 7.Anemia of chronic disease. Continue IV iron. Monitor H and H. AA/MODL Voice ID: [id number] Report ID: [id number]
[2024-01-24 09:12] LABS: Absolute Basophils 0.1 K/uL (0-0.5); Absolute Eosinophils 0.2 K/uL (0-0.5); Absolute Lymphocytes (CBC) 0.9 K/uL (0.7-4.9); Absolute Monocytes 0.5 K/uL (0.1-1.3); Absolute Neutrophil 5.8 K/uL (1.8-8.0); Basophils % 0.7 % (0-1.3); Lymphocytes % 12.4 % (15.3-44.8); MCH 31.2 pg (27.0-35.0); MCHC 33.4 g/dL (32.0-36.0); MCV 93.4 fL (80-100); MPV 8.6 fL (7.6-11.3); Monocytes % 7.1 % (3.3-12.3); Neutrophils % 77.8 % (41.7-73.7); Nucleated Red Blood Cells % 0.1 % (0-0); Platelets 159 thou/uL (152-406); RBC Red Blood Cell Count 2.89 M/uL (4.33-5.43); Red Cell Distribution Width 14.3 % (12.1-15.2)
[2024-01-24 09:30] LABS: Albumin 3.1 g/dL (3.4-5.0); Albumin/Globulin Ratio 0.9 (1.1-1.8); Bilirubin Total 0.8 mg/dL (0.2-1.0); Globulin 3.4 g/dL (2.3-3.5); Protein, Total 6.5 g/dL (6.4-8.2)
--- NOTE | 2024-01-24 12:37 | P.PN ---
Date of Service: 01/24/24 subjective Reports mild nausea nausea today, reports shortness of breath worse with exertion Worsening kidney function today, nephrology notified, 93% on room air Review of Systems 10 point review of system negative unless listed in HPI Physical Examination - Vital Signs reviewed - Physical Exam General: Alert, oriented, answer question appropriate in no apparent distress, HEENT: Atraumatic, Normocephalic Neck: Supple Respiratory: Normal air movement, Crackles/rales, Cardiovascular: Regular rate/rhythm, Normal S1 S2, Edema Capillary refill: <2 Seconds, lower extremity edema Gastrointestinal: Normal bowel sounds, Soft and benign, obese Musculoskeletal: No clubbing Integumentary: Other (Pallor) Neurological: Normal speech, Normal affect, Abnormal tone Assessment And Plan - Plan Acute on chronic diastolic heart failure HFpEF Chest pain secondary to unstable Angina Status post angiogram with PCI stent Started on Brilinta Cardiology did cardiac cath on 01/19/24 and placed a stent. Patient's shortness of breath has worsened. Patient's PND/orthopnea has wor sened. Edema of the lower extremities has improved mildly. Patient with decompensated congestive heart failure. Dyspnea on exertion. Echocardiogram (last ECHO here on 01/31/23 EF 60-65%, GRADE 1 Diastolic dysfunction), order placed for Monday Lisinopril -held for increased creatinine Coreg continued, nephrology added amlodipine Hydralazine as needed, Nitropaste as needed Cardiology consultation -Dr. Reyes following and performed left heart cath with PCI of the OM, placed on Brilinta Aggressive diuresis, diuresis medications decreased second to increasing ARLENE Statin continue Strict Is & Os -Boss intact Daily weight Education regarding diet and treatment of congestive heart failure with preserved EF Nausea vomiting acute possible secondary to uremia? Diet changed to full liquid, Diabetes monitor and trend SSI with moderate coverage CL for now, advanced to renal Acidosis Nephrology following, treated with IV bicarb hypertensive nephrosclerosis and diabetic nephropathy Nephrotic syndrome Nephrotic-range likely secondary to DM nephropathy Nephrology following CKD stage III with ARLENE Fluid volume overload Elevated BNP worsening kidney function and creatinine creatinine 5.91, diuresis per nephrology monitor and trend Consult Dr. Juarez/Mathieu-following Ferritin/Iron level 01/18 creatinine 3.5/GFR 18, creat 3.14 with GFR 21, lasix increased to 40mg TID and then decreased to twice daily Creatinine 01/20 3.96 BNP 2589 Iron deficiency anemia Trend H&H CAD HTN HLD Per cardiology VTE/GI prophylaxis asa, Brilinta/protonix Code full code Time with patient 35-minute <Stacey Jerome - Last Filed: 01/24/24 12:34> Patient was seen and examined. Events of the last 24 hours have been noted. Spoke with with JEYSON regarding patient's clinical picture after evaluating and examining the patient independently. I performed a substantial part of the MDM during this patient's care today. I personally made or approved the documented management plan and acknowledge its risk of complications. I agree with the findings and documentation provided in the JEYSON's notes. Patient's renal function continues to deteriorate. Consulted nephrology and they wanted to consult surgery for dialysis access catheter. Continue with current cardiac meds. Arrange for outpatient dialysis once we get started. <Adolfo Whitten - Last Filed: 01/29/24 03:10>
--- NOTE | 2024-01-24 12:54 | PN ---
Objective: Vital Signs: Blood pressure 132/62, pulse of 62, afebrile. Chest: Crackles, bilateral. Heart: S1, S2. Systolic murmur. Abdomen: Morbidly obese. Could not appreciate any organomegaly. Extremities: +2 edema. Neuro: Alert. No focality. No tremor. Laboratory Data: Hemoglobin 9, sodium 140, potassium 4, bicarb 24, BUN 48, creatinine 5.9, GFR of 10, calcium 8.3. Current Medications: The patient on, include aspirin, IV iron, atorvastatin, nitroglycerin, loperamide, insulin. Assessment And Plan: 1. Acute kidney injury on advanced chronic kidney disease, progression to end- stage renal disease. I had long discussion with the patient in the presence of the son regarding the need to initiate renal replacement therapy given the nausea. The patient on agreement. We will start the patient on dialysis. We will consult Surgery for dialysis catheter placement and we will follow up. 2. Hypertension, controlled. We will utilize blood pressure for ultrafiltration. 3. Anemia of chronic kidney disease and with iron-deficiency anemia. Continue IV iron. We will follow up. Time spent examining the patient [id number] reviewing the data and clapper and the radiology placing order discussing the case with the patient discussing the case with the inspector outside steam distribution including hospitalist and nursing staff more than 55 minutes GUERO Voice ID: [id number] Report ID: [id number] MTDD
[2024-01-24 15:00] LABS: Hepatitis B Core Ab, Total Nonreactive (Nonreactive)
[2024-01-24 15:01] LABS: Hepatitis B Surface Ab - Quant < 3.10 mIU/mL (<8.0)
[2024-01-24 16:18] LABS: Abnormal Protein Band 1 REPORT; Albumin, (SPE) 2.6 g/dL (3.8-4.8); Alpha-1-Globulins 0.3 g/dL (0.2-0.3); Alpha-2-Globulins 0.9 g/dL (0.5-0.9); Beta 1 Globulin 0.3 g/dL (0.4-0.6); Gamma Globulins 0.8 g/dL (0.8-1.7); INTERPRETATION REPORT; Total Protein 5.3 g/dL (6.1-8.1)
[2024-01-25 05:16] LABS: Albumin 3.3 g/dL (3.4-5.0); Anion Gap 13.9 mEq/L (5.0-15.0); Phosphorus 5.3 mg/dL (2.5-4.9); Potassium 3.9 mEq/L (3.5-5.1)
--- NOTE | 2024-01-25 06:57 | P.PN ---
Date of Service: 01/25/24 subjective Worsening shortness of breath, worsening acute renal failure, Reports nausea from Review of Systems 10 point review of system negative unless listed in HPI Physical Examination - Vital Signs reviewed - Physical Exam General: Alert, oriented, dyspnea HEENT: Atraumatic, Normocephalic Neck: Supple Respiratory: Normal air movement, Crackles/rales, Cardiovascular: Regular rate/rhythm, Normal S1 S2, Edema, Capillary refill: <2 Seconds, lower extremity edema Gastrointestinal: Normal bowel sounds, Soft and benign, obese Musculoskeletal: No clubbing Integumentary: Other (Pallor) Neurological: Normal speech, Normal affect, Abnormal tone Assessment And Plan - Plan Acute on chronic diastolic heart failure HFpEF Chest pain secondary to unstable Angina Status post angiogram with PCI stent Hypertensive urgency Started on Brilinta Cardiology did cardiac cath on 01/19/24 and placed a stent. Patient's shortness of breath has worsened. Patient's PND/orthopnea has worsened. Edema of the lower extremities has improved mildly. Patient with decompensated congestive heart failure. Dyspnea on exertion. Echocardiogram (last ECHO here on 01/31/23 EF 60-65%, GRADE 1 Diastolic dysfunction), order placed for Monday Lisinopril -held for increased creatinine Coreg continued, nephrology added amlodipine Hydralazine as needed, Nitropaste as needed Cardiology consultation -Dr. Reyes following and performed left heart cath with PCI of the OM, placed on Brilinta Aggressive diuresis, diuresis medications decreased second to increasing ARLENE Statin continue Strict Is & Os -Boss intact Daily weight Education regarding diet and treatment of congestive heart failure with preserved EF 01/24 surgery eval for hemodialysis catheter placed Nausea vomiting acute phase secondary to uremia Uremia Diet changed to full liquid, Diabetes monitor and trend SSI with moderate coverage CL for now, advanced to renal Acidosis Nephrology following, treated with IV bicarb hypertensive nephrosclerosis and diabetic nephropathy Nephrotic syndrome Nephrotic-range likely secondary to DM nephropathy Nephrology following Worsening acute renal failure She ate hemodialysis CKD stage III with ARLENE Fluid volume overload Elevated BNP worsening kidney function and creatinine creatinine 5.91, diuresis per nephrology monitor and trend Consult Dr. Juarez/Mathieu-following Ferritin/Iron level 01/18 creatinine 3.5/GFR 18, creat 3.14 with GFR 21, lasix increased to 40mg TID and then decreased to twice daily Creatinine 01/20 3.96 BNP 2589 Iron deficiency anemia Trend H&H CAD HTN HLD Per cardiology VTE/GI prophylaxis asa, Brilinta/protonix Code full code Time with patient 35-minute <Stacey Jerome - Last Filed: 01/26/24 15:42> Patient was seen and examined. Events of the last 24 hours have been noted. Spoke with with JEYSON regarding patient's clinical picture after evaluating and examining the patient independently. I performed a substantial part of the MDM during this patient's care today. I personally made or approved the documented management plan and acknowledge its risk of complications. I agree with the findings and documentation provided in the JEYSON's notes. Patient's renal function continues to deteriorate. Consulted nephrology and plan for hemodialysis catheter placement today. Continue with current cardiac meds. Arrange for outpatient dialysis once we get started. <Adolfo Whitten - Last Filed: 01/29/24 03:11>
[2024-01-25] MEDS: HYDRALAZINE HCL 20 MG/ML VIAL IV PRN (15:04)
--- NOTE | 2024-01-25 16:42 | PN ---
Date of Progress Note: 01/25/2024 Subjective: The patient was admitted to the hospital with acute kidney injury on advanced chronic kidney disease with over volume and uremic symptoms. The patient planned for a TDC placement today. Physical Examination: Vital Signs: Blood pressure 147/75, pulse of 79, afebrile. Chest: Crackles, bilateral base. Heart: S1, S2. Regular. Systolic murmur. Abdomen: Soft, nontender. Extremities: +1 edema. Neuro: No focality. No tremor. Laboratory Data: Hemoglobin 9, sodium 141, potassium 3.9, bicarb 21, BUN 53, creatinine 6.3, GFR of 9, calcium 8.5, phosphorus 5.3, albumin 3.3, corrected calcium is 9.2, serum protein electrophoresis, no M-spike. Serology was negative. Current Medications: The patient on include IV iron, Brilinta, atorvastatin, nitroglycerin, loperamide, pantoprazole, insulin, aspirin. Assessment And Plan: 1. Acute kidney injury on advanced chronic kidney disease, progression to end- stage renal disease. The patient planned to initiate dialysis today. After replacement of TDC, we will arrange for the dialysis. We will continue diuresing the patient. 2. Hypertension, controlled, not optimal. I am going to utilize blood pressure for more diuresis and we will follow up the patient. 3. Anemia of chronic kidney disease and iron-deficiency anemia. Continue IV iron. 4. Diabetes as by primary. 5. Congestive heart failure with exacerbation as by primary. Time spent examining the patient [id number] reviewing the data and clapper and the radiology placing order discussing the case with the patient discussing the case with the steam shovel engineer including hospitalist and nursing staff more than 55 minutes GUERO Voice ID: [id number] Report ID: [id number] TOÑA
[2024-01-25] MEDS: FUROSEMIDE 40 MG/4 ML VIAL IV SCH (16:59)
--- NOTE | 2024-01-25 17:34 | P.PN ---
Subjective Date of Service: 01/25/24 Chief Complaint: CP, CHF, CKD with ARLENE Subjective: No new changes, No C/O voiced, Tolerating diet, Ambulating, Improving Review of Systems 10-point ROS is otherwise unremarkable Physical Examination - Vital Signs Temperature: 97.5 F Blood Pressure: 198/82 Pulse: 61 Respirations: 17 Pulse Ox (%): 96 - Physical Exam General: Alert, In no apparent distress HEENT: Atraumatic, PERRLA, EOMI Neck: Supple, JVD not distended Respiratory: Clear to auscultation bilaterally, Normal air movement Cardiovascular: Regular rate/rhythm, Normal S1 S2 Gastrointestinal: Normal bowel sounds, No tenderness Musculoskeletal: No tenderness Integumentary: No rashes Neurological: Normal speech, Normal tone, Normal affect Lymphatics: No axilla or inguinal lymphadenopathy - Studies Medications List Reviewed: Yes Assessment And Plan - Current Problems (Diagnosis) (1) Unstable angina Current Visit: Yes Status: Acute Plan: coronary angiogram done with PCI to OM2 ASA 81 mg daily Brilinta 90 mg po BID for 12 months Lipitor 40 mg daily outpatient stress test to check on LAD moderate disease. (2) Acute on chronic diastolic (congestive) heart failure Current Visit: Yes Status: Acute Plan: coreg to 25 mg po BID, restart lisinopril 10 mg daily volume adjustment through dialysis Echo shows Normal systolic function with Diastolic dysfunction and elevated filling pressure (3) HTN (hypertension) Current Visit: Yes Status: Acute Plan: continue medications as above. (4) HLD (hyperlipidemia) Current Visit: Yes Status: Acute Plan: lipitor 40 mg daily
--- NOTE | 2024-01-25 18:09 | CON ---
Date of Consultation: 01/25/2024 Diagnosis: Need for hemodialysis catheter. History Of Present Illness: This is a case of a male, admitted to the hospital with multiple medical problems, found to have renal insufficiency and a hemodialysis catheter tunnel was requested. Allergies: NONE. Medical Problems: Include hypertension, diabetes, sleep apnea, congestive heart failure. Past Surgical History: Include cholecystectomy, ERCPs, appendectomies. Family History: Noncontributory. Medications: Reviewed included Norvasc, Coreg. Review of Systems: No shortness of breath, no chest pain, although he initially came with that, he is better now. No na usea or vomiting at this moment. No dysuria, hematuria, hematochezia, or melena. Physical Examination: Vital Signs: Reviewed. General: Patient is awake, alert, oriented x3. HEENT: Pupils are equal and reactive. Anicteric. Neck: Supple. Chest: Clear. Heart: S1, S2. Abdomen: Soft and depressible. No guarding or rebound. No peritoneal signs. Extremities: Good capillary refill. Laboratory Data: Blood work shows a WBC count of 7.5, hemoglobin of 9, platelets of 159. INR is 1.1 5, potassium 3.9, creatinine is 6.31. Assessment: A 68-year-old patient who need a hemodialysis catheter cuff requested by the Renal Servi mel[facility]. I fully explained to the patient, the benefits, alternatives, and risks including, but not limit ed to, infection, bleeding, damage to adjacent structures, anesthesia complication, pneumothorax, hem othorax, sepsis, DVTs, PE, CT, and even . He also understands this may not relieve any symptoms . He might need more than one surgical intervention. He understand the importance of keeping this c atheter clean and the importance of having it frequently flushed by the Renal Service during dialysis . He was advised the moment he does not need this anymore and the doctor requests that to be removed , he should come to my office and call to put him in the schedule for removal. In an unusual situati on at this moment does not allow me to do this catheter at this moment. The OR in our institution is on hold. They are having some issues with the air conditioning, humidity, and they stopped all the cases at this moment. So I discussed that with the primary doctor. The OR believed by tomorrow lora ing, they may be open and running. There is no guarantee right now, so we might do the case tomorrow in a safer environment or they have an option of transferring this patient out. I am going to leave that to the primary doctor and the [facility]al Service on judgment. TAARH Voice ID: [id number] Report ID: [id number]
[2024-01-26] MEDS ORDERED: LABETALOL 20 MG/4ML SYRINGE IV PRN ×2 (03:41→06:14)
--- NOTE | 2024-01-26 06:48 | P.PN ---
Date of Service: 01/26/24 subjective Dialysis catheter placed today, shortness of breath with exertion, mild nausea Review of Systems 10 point review of system negative unless listed in HPI Physical Examination - Vital Signs reviewed - Physical Exam General: Alert, oriented, dyspneic, HEENT: Atraumatic, Normocephalic Neck: Supple Respiratory: Normal air movement, Crackles/rales, Cardiovascular: Regular rate/rhythm, Normal S1 S2, Edema Capillary refill: <2 Seconds, lower extremity edema Gastrointestinal: Normal bowel sounds, Soft and benign, obese Musculoskeletal: No clubbing Neurological: Normal speech, Normal affect, Abnormal tone Assessment And Plan - Plan Acute on chronic diastolic heart failure HFpEF Chest pain secondary to unstable Angina Status post angiogram with PCI stent Started on Brilinta Cardiology did cardiac cath on 01/19/24 and placed a stent. Patient's shortness of breath has worsened. Patient's PND/orthopnea has worsened. Edema of the lower extremities has improved mildly. Patient with decompensated congestive heart failure. Dyspnea on exertion. Echocardiogram (last ECHO here on 01/31/23 EF 60-65%, GRADE 1 Diastolic dysfunction), order placed for Monday Lisinopril -held for increased creatinine Coreg continued, nephrology added amlodipine Hydralazine as needed, Nitropaste as needed Cardiology consultation -Dr. Reyes following and performed left heart cath with PCI of the OM, placed on Brilinta Aggressive diuresis, diuresis medications decreased second to increasing ARLENE Statin continue Strict Is & Os -Boss intact Daily weight Education regarding diet and treatment of congestive heart failure with preserved EF 01/25 surgery eval for hemodialysis catheter placed Echo 01/19 1. NORMAL LEFT VENTRICULAR SYSTOLIC FUNCTION, EJECTION FRACTION 60-65%, NORMAL WALL MOTION 2. GRADE II DIASTOLIC DYSFUNCTION Acute on chronic renal failure Nausea vomiting acute possible secondary to uremia Uremia Diet changed to full liquid, MRI ordered to rule out CVA Diabetes monitor and trend SSI with moderate coverage CL for now, advanced to renal Acidosis Nephrology following, treated with IV bicarb hypertensive nephrosclerosis and diabetic nephropathy Nephrotic syndrome Nephrotic-range likely secondary to DM nephropathy Nephrology following Progression of worsening kidney disease, requires hemodialysis CKD stage III with ARLENE Fluid volume overload Elevated BNP worsening kidney function and creatinine creatinine 5.91, diuresis per nephrology monitor and trend Consult Dr. Juarez/Mathieu-following Ferritin/Iron level 01/18 creatinine 3.5/GFR 18, creat 3.14 with GFR 21, lasix increased to 40mg TID and then decreased to twice daily Creatinine 01/20 3.96 BNP 2589 Tunneled dialysis cath placement by surgery Iron deficiency anemia Trend H&H CAD HTN HLD Per cardiology Resume appropriate home meds VTE/GI prophylaxis asa, Brilinta/protonix Code full code Time with patient 35-minute <Stacey Jerome - Last Filed: 01/26/24 15:42> Patient was seen and examined. Events of the last 24 hours have been noted. Spoke with with JEYSON regarding patient's clinical picture after evaluating and examining the patient independently. I performed a substantial part of the MDM during this patient's care today. I personally made or approved the documented management plan and acknowledge its risk of complications. I agree with the findings and documentation provided in the JEYSON's notes. Patient's renal function continues to deteriorate. Consulted nephrology and plan for hemodialysis catheter placement completed and started hemodialysis. Continue with current cardiac meds. Arrange for outpatient dialysis. <Adolfo Whitten - Last Filed: 01/29/24 03:13>
[2024-01-26] MEDS: NA CHLORIDE 0.9% 100 ML ONE (10:58)
[2024-01-26] MEDS: HYDRALAZINE HCL 20 MG/ML VIAL IV PRN (11:09)
[2024-01-26] MEDS ORDERED: LIDOCAINE 2% MPF 5 ML VIAL ONE (11:32)
[2024-01-26] MEDS: HEPARIN 5000 UNIT/ML 1 ML VIAL ONE (11:32)
[2024-01-26] MEDS ORDERED: propofoL 200 MG/20 ML VIAL IV ONE (11:32)
[2024-01-26] MEDS ORDERED: FENTANYL CITR 100 MCG/2 ML ONE (11:32)
[2024-01-26] MEDS: BUPIVACAINE 0.5% PF 10 ML VIAL ONE (11:32)
[2024-01-26] MEDS ORDERED: ONDANSETRON 4 MG/2 ML VIAL ONE (11:32)
[2024-01-26] MEDS: NA CHLORIDE 0.9% 500 ML ONE (11:35)
[2024-01-26] MEDS ORDERED: EPHEDRINE SULF 50 MG/ML VIAL ONE (12:35)
[2024-01-26] MEDS: CEFAZOLIN SODIUM 1 GM/VIAL ONE (12:37)
[2024-01-26] MEDS ORDERED: dexAMETHasone 10 MG/ML VIAL ONE (13:23)
--- NOTE | 2024-01-26 13:34 | RAD REPORT ---
EXAM DESCRIPTION: RAD - Fluoroscopy <1 Hour - 01/26/2024 1:29 pm CLINICAL HISTORY: Venous catheter insertion. HD CATH COMPARISON: <Comparisons> FINDINGS: Fluoroscopic imaging is submitted from placement of a venous catheter. Details of the pro cedure not available. Fluoroscopy time: 1.1 minutes
--- NOTE | 2024-01-26 14:01 | RAD REPORT ---
EXAM DESCRIPTION: RAD - Chest Single View - 01/26/2024 1:55 pm CLINICAL HISTORY: S/P HD CATH INSERTION Chest pain. COMPARISON: <Comparisons> FINDINGS: Portable technique limits examination quality. Right-sided venous catheter has been placed with its tip in the SVC. No pneumothorax. Moderate bilate ral pulmonary opacities are present likely representing pulmonary edema. The heart is mildly enlarged in size.No findings typical of tuberculosis seen.
--- NOTE | 2024-01-26 14:12 | P.BOP ---
Preoperative diagnosis: renal insufficiency Postoperative diagnosis: same Primary procedure: 1. Placement of cuffedhemosplit Hemodialysis cath Secondary procedure: 2. Interpretation of fluoroscopy Other procedure(s): 3. Right jugular ultrasound Estimated blood loss: <10cc Specimen: none Findings: as above Anesthesia: General Complications: None Implants: hemosplt Transferred to: Recovery Room
--- NOTE | 2024-01-26 19:09 | OP ---
Date of Procedure: 01/26/2024 Surgeon: Cortes Diaz MD Preoperative Diagnosis: Renal insufficiency. Postoperative Diagnosis: Renal insufficiency. Procedures: 1.Placement of cuffed HemoSplit hemodialysis catheter. 2.Interpretation of fluoroscopy. 3.Right jugular neck ultrasound. Estimated Blood Loss: Less than 10 cc. Specimen: None. Findings: Compressible vein. Anesthesia: General plus local. Implant: A HemoSplit hemodialysis catheter on the right internal jugular vein. Indications: This is a case of a 68-year-old patient in need of dialysis. They asked me to put a cu ffed hemodialysis catheter. With the benefits, alternatives, and risks fully explained to the patien t which include, but not limited to, infection, bleeding, damage to adjacent structures, anesthesia c omplication, pneumothorax, hemothorax, sepsis, PE, DVT, VT, and even . He also understands this may not relieve any symptoms. He might need more than one surgical intervention. He also understan ds this is a temporary catheter as long as the pipeline gang supervisor believe he is going to have dialysis for a [facility], he was advised to find a surgeon in [place] who can just do a more permanent access. He understood. Description Of Procedure: The patient was brought to the operating room, placed in supine position. Anesthesia was done without complication. Time-out was called. Right neck and chest were prepped a nd draped in the usual sterile fashion. Patient was placed in Trendelenburg position. Ultrasound of the neck was done finding the carotid and jugular vein. The jugular vein seemed to be compressible. The area was already prepped in the usual sterile fashion. So, in Trendelenburg position, we proce eded to place an 18-gauge needle in the right internal jugular vein at the first attempt with the hel p of ultrasound guidance. At that moment, I passed a guidewire under fluoroscopy guided into the sup erior vena cava. At that moment, I made an incision in the right upper chest tunnel, a HemoSplit hem odialysis catheter to meet that new incision in the neck and then serial dilators were placed through the guidewire under fluoroscopy until the catheter was placed in, and the catheter and the wire was removed. Then the sheath of the introducer kit was peeled off. Under fluoroscopy, we noticed the ca theter to be in good position. Excellent backflow and inflow. The line was flushed with heparinized solution. The chromic was used to close the subcutaneous tissue and the nylon to secure the cathete r to the skin. Area was covered with sterile dressings. Patient was brought back to normal position . Patient was sent to recovery in stable condition and chest x-ray was ordered stat. CORINE/QUIANA Voice ID: [id number] Report ID: [id number]
[2024-01-27 08:01] LABS: Absolute Basophils 0.1 K/uL (0-0.5); Absolute Lymphocytes (CBC) 0.7 K/uL (0.7-4.9); Absolute Monocytes 0.7 K/uL (0.1-1.3); Absolute Neutrophil 11.5 K/uL (1.8-8.0); Basophils % 0.4 % (0-1.3); Hematocrit 33.5 % (39.6-49.0); Hemoglobin 10.8 g/dL (13.6-17.9); Lymphocytes % 5.1 % (15.3-44.8); MCH 30.3 pg (27.0-35.0); MCHC 32.3 g/dL (32.0-36.0); MCV 93.7 fL (80-100); MPV 9.2 fL (7.6-11.3); Monocytes % 5.5 % (3.3-12.3); Platelets 197 thou/uL (152-406); RBC Red Blood Cell Count 3.58 M/uL (4.33-5.43); Red Cell Distribution Width 14.4 % (12.1-15.2)
[2024-01-27 08:16] LABS: Albumin 3.2 g/dL (3.4-5.0); Anion Gap 14.1 mEq/L (5.0-15.0); Phosphorus 6.4 mg/dL (2.5-4.9); Potassium 4.1 mEq/L (3.5-5.1)
[2024-01-27 09:13] LABS: Blood Morphology Comment NOT SEEN (NOT SEEN); Platelet Estimate ADEQ; White Blood Cell Scan OK (OK)
[2024-01-27] MEDS: CALCITROL 0.25 MCG CAP PO SCH (12:57)
--- NOTE | 2024-01-27 13:17 | PN ---
Date of Progress Note: 01/27/2024 Subjective: The patient was admitted to the hospital with over volume, acute kidney injury on advanced chronic kidney disease. The patient was initiated on dialysis. This is his second session. We managed to remove 2 L yesterday and 1.5 L today. Physical Examination: Vital Signs: Blood pressure 162/76, pulse of 82, afebrile. Chest: Faint rales bilateral. Heart: S1, S2. Systolic murmur. Abdomen: Soft, nontender. Extremities: +1 edema. Neuro: Alert. No focality. Laboratory Data: Hemoglobin 10.8. Sodium 139, potassium 4.1, bicarb 22, BUN 61, creatinine 5.4, calcium 8.9, phosphorus 6.4. Current Medications: The patient is on include Brilinta, heparin, atorvastatin, nitroglycerin, Lasix 80 b.i.d., breathing treatment, pantoprazole, loperamide. Assessment And Plan: 1. End-stage renal disease. We will continue the patient on dialysis, Monday, Monday, Monday. Waiting for chair placement. 2. Secondary hyperparathyroid. We will start the patient on calcitriol. 3. Hypertension, controlled, not optimal. I am going to add to the patient's regimen lisinopril given the history of diabetes and we will follow up the patient. 4. Hypophosphatemia secondary to secondary hyperparathyroidism. We will start the patient on Tums and we will start calcitriol and we will follow up. 5. Diabetes as by primary. 6. CHF with exacerbation. We will continue Lasix. Continue to optimize fluid status. Time spent examining the patient [id number] reviewing the data and clapper and the radiology placing order discussing the case with the patient discussing the case with the team foreman including hospitalist and nursing staff more than 55 minutes GUERO Voice ID: [id number] Report ID: [id number] TOÑA
--- NOTE | 2024-01-27 14:48 | P.PN ---
Date of Service: 01/27/24 subjective Seen in dialysis today, tolerating dialysis well, no acute distress noted Review of Systems 10 point review of system negative unless listed in HPI Physical Examination - Vital Signs reviewed - Physical Exam General: Alert, oriented, no acute distress noted HEENT: Atraumatic, Normocephalic Neck: Supple Respiratory: Normal air movement, Crackles/rales, Cardiovascular: Regular rate/rhythm, Normal S1 S2, Edema Capillary refill: <2 Seconds, lower extremity edema Gastrointestinal: Normal bowel sounds, Soft and benign, obese Musculoskeletal: No clubbing Neurological: Normal speech, Normal affect, Abnormal tone Assessment And Plan - Plan Acute on chronic diastolic heart failure HFpEF Chest pain secondary to unstable Angina Status post angiogram with PCI stent Started on Brilinta Cardiology did cardiac cath on 01/19/24 and placed a stent. Patient's shortness of breath has worsened. Patient's PND/orthopnea has worsened. Edema of the lower extremities has improved mildly. Patient with decompensated congestive heart failure. Dyspnea on exertion. Echocardiogram (last ECHO here on 01/31/23 EF 60-65%, GRADE 1 Diastolic dysfunction), order placed for Monday Lisinopril -held for increased creatinine Coreg continued, nephrology added amlodipine Hydralazine as needed, Nitropaste as needed Cardiology consultation -Dr. Reyes following and performed left heart cath with PCI of the OM, placed on Brilinta Aggressive diuresis, diuresis medications decreased second to increasing ARLENE Statin continue Strict Is & Os -Boss intact Daily weight Education regarding diet and treatment of congestive heart failure with preserved EF 01/25 surgery eval for hemodialysis catheter placed Echo 01/19 1. NORMAL LEFT VENTRICULAR SYSTOLIC FUNCTION, EJECTION FRACTION 60-65%, NORMAL WALL MOTION 2. GRADE II DIASTOLIC DYSFUNCTION Acute on chronic renal failure Nausea vomiting acute possible secondary to uremia Uremia Diet changed to full liquid, MRI ordered to rule out CVA 01/25 Hemodialysis catheter placed by surgery hemodialysis started Diabetes monitor and trend SSI with moderate coverage CL for now, advanced to renal Acidosis Nephrology following, treated with IV bicarb hypertensive nephrosclerosis and diabetic nephropathy Nephrotic syndrome Nephrotic-range likely secondary to DM nephropathy Nephrology following Progression of worsening kidney disease, requires hemodialysis CKD stage III with ARLENE Fluid volume overload Elevated BNP worsening kidney function and creatinine creatinine 5.91, diuresis per nephrology monitor and trend Consult Dr. Juarez/Alroumoh-following Ferritin/Iron level 01/18 creatinine 3.5/GFR 18, creat 3.14 with GFR 21, lasix increased to 40mg TID and then decreased to twice daily Creatinine 01/20 3.96 BNP 2589 Tunneled dialysis cath placement by surgery Iron deficiency anemia Trend H&H CAD HTN HLD Per cardiology Resume appropriate home meds VTE/GI prophylaxis asa, Brilinta/protonix Code full code Time with patient 25-minute <Stacey Jerome - Last Filed: 01/27/24 14:47> Patient was seen and examined. Events of the last 24 hours have been noted. Spoke with with JEYSON regarding patient's clinical picture after evaluating and examining the patient independently. I performed a substantial part of the MDM during this patient's care today. I personally made or approved the documented management plan and acknowledge its risk of complications. I agree with the findings and documentation provided in the JEYSON's notes. Patient's renal function stable. Continue hemodialysis. Continue with current cardiac meds. Arrange for outpatient dialysis. <Adolfo Whitten - Last Filed: 01/29/24 03:14>
[2024-01-27] MEDS: CALCIUM CARBONATE CHEW 500MG TAB PO SCH (17:24)
--- NOTE | 2024-01-28 07:35 | P.PN ---
Date of Service: 01/28/24 subjective Reports breathing better after hemodialysis, Reports generalized weakness after dialysis, Review of Systems 10 point review of system negative unless listed in HPI Physical Examination - Vital Signs reviewed - Physical Exam General: Alert, oriented, no acute distress noted HEENT: Atraumatic, Normocephalic Neck: Supple Respiratory: Normal air movement, unlabored, Cardiovascular: Regular rate/rhythm, Normal S1 S2, Edema Capillary refill: <2 Seconds, lower extremity edema Gastrointestinal: Normal bowel sounds, Soft and benign, obese Musculoskeletal: No clubbing, generalized weakness Neurological: Normal speech, Normal affect, Abnormal tone Assessment And Plan - Plan Acute on chronic diastolic heart failure HFpEF Chest pain secondary to unstable Angina Status post angiogram with PCI stent Started on Brilinta Cardiology did cardiac cath on 01/19/24 and placed a stent. Patient's shortness of breath has worsened. Patient's PND/orthopnea has worsened. Edema of the lower extremities has improved mildly. Patient with decompensated congestive heart failure. Dyspnea on exertion. Echocardiogram (last ECHO here on 01/31/23 EF 60-65%, GRADE 1 Diastolic dysfunction), order placed for Monday Lisinopril -held for increased creatinine Coreg continued, nephrology added amlodipine Hydralazine as needed, Nitropaste as needed Cardiology consultation -Dr. Reyes following and performed left heart cath with PCI of the OM, placed on Brilinta Aggressive diuresis, diuresis medications decreased second to increasing ARLENE Statin continue Strict Is & Os -Boss intact Daily weight Education regarding diet and treatment of congestive heart failure with preserved EF 01/25 surgery eval for hemodialysis catheter placed Pending chair set up for hemodialysis on Monday Echo 01/19 1. NORMAL LEFT VENTRICULAR SYSTOLIC FUNCTION, EJECTION FRACTION 60-65%, NORMAL WALL MOTION 2. GRADE II DIASTOLIC DYSFUNCTION Acute on chronic renal failure improved Nausea vomiting acute possible secondary to uremia Uremia improved Diet changed to full liquid, MRI ordered to rule out CVA 01/25 Hemodialysis catheter placed by surgery hemodialysis started Diabetes monitor and trend SSI with moderate coverage CL for now, advanced to renal Acidosis Nephrology following, treated with IV bicarb hypertensive nephrosclerosis and diabetic nephropathy Nephrotic syndrome Nephrotic-range likely secondary to DM nephropathy Nephrology following Progression of worsening kidney disease, requires hemodialysis CKD stage III with ARLENE Fluid volume overload Elevated BNP worsening kidney function and creatinine creatinine 5.91, diuresis per nephrology monitor and trend Consult Dr. Juarez/Mathieu-following Ferritin/Iron level 01/18 creatinine 3.5/GFR 18, creat 3.14 with GFR 21, lasix increased to 40mg TID and then decreased to twice daily Creatinine 01/20 3.96 BNP 2589 Tunneled dialysis cath placement by surgery Iron deficiency anemia Trend H&H CAD HTN HLD Per cardiology Resume appropriate home meds VTE/GI prophylaxis asa, Brilinta/protonix Code full code Time with patient 25-minute <Stacey Jerome - Last Filed: 01/28/24 15:22> Patient was seen and examined. Events of the last 24 hours have been noted. Spoke with with JEYSON regarding patient's clinical picture after evaluating and examining the patient independently. I performed a substantial part of the MDM during this patient's care today. I personally made or approved the documented management plan and acknowledge its risk of complications. I agree with the findings and documentation provided in the JEYSON's notes. Patient's renal function continues to deteriorate. Consulted nephrology and plan for hemodialysis catheter placement completed and started hemodialysis. Patient has been started on hemodialysis. Patient with sinus pause. Patient with a syncope and collapse. Will reconsult cardiology. Continue monitoring on telemetry. Continue with current cardiac meds. Arrange for outpatient dialysis. <Adolfo Whitten - Last Filed: 01/29/24 03:15>
[2024-01-28 08:03] LABS: Absolute Basophils 0.1 K/uL (0-0.5); Absolute Eosinophils 0.1 K/uL (0-0.5); Absolute Lymphocytes (CBC) 1.6 K/uL (0.7-4.9); Absolute Monocytes 0.9 K/uL (0.1-1.3); Absolute Neutrophil 8.2 K/uL (1.8-8.0); Eosinophils % 1.3 % (0-4.4); Hematocrit 34.4 % (39.6-49.0); Hemoglobin 11.2 g/dL (13.6-17.9); Lymphocytes % 14.2 % (15.3-44.8); MCH 30.4 pg (27.0-35.0); MCHC 32.4 g/dL (32.0-36.0); MCV 93.7 fL (80-100); MPV 9.1 fL (7.6-11.3); Monocytes % 8.2 % (3.3-12.3); Neutrophils % 75.3 % (41.7-73.7); Platelets 200 thou/uL (152-406); RBC Red Blood Cell Count 3.68 M/uL (4.33-5.43); Red Cell Distribution Width 14.6 % (12.1-15.2)
[2024-01-28 08:28] LABS: Albumin 3.2 g/dL (3.4-5.0); Anion Gap 12.6 mEq/L (5.0-15.0); Phosphorus 6.3 mg/dL (2.5-4.9); Potassium 3.6 mEq/L (3.5-5.1)
[2024-01-28] MEDS: lisinopriL 10 MG TAB PO SCH (09:00)
--- NOTE | 2024-01-28 13:18 | PN ---
Date of Progress Note: 01/28/2024 Subjective: The patient was admitted to the hospital with advanced kidney disease with acute kidney injury secondary to cardiorenal. The patient progressed to end-stage renal disease, initiated on dialysis. Objective: Vital Signs: Blood pressure of 96/61, pulse of 95, afebrile. Chest: Clear to auscultation. Heart: S1, S2. Regular. Abdomen: Soft, nontender. Extremity: Trace edema. Neurologic: Alert. No focality. Laboratory Data: Hemoglobin 11.2, sodium 135, potassium 3.6, bicarb 24, BUN 55, creatinine 5.9, GFR of 10, calcium 9, phosphorus 6.3, albumin 3.2, corrected calcium 9.8. Current Medications: The patient on, it includes heparin, aspirin, Brilinta, calcium carbonate, loperamide, Lasix 80, lisinopril, nitroglycerin, Zofran, calcitriol. Assessment And Plan: 1. Acute kidney injury on advanced chronic kidney disease, progression to end- stage renal disease. Continue dialysis Monday, Monday, Monday. 2. Hypertension, currently blood pressure on the lower side. I am going to discontinue lisinopril. We will hold the Lasix for the time being. We will send for EKG and cardiac enzyme and we will follow up. 3. Syncope secondary possible to low blood pressure, as above. We will hold the blood pressure medication. I will give the patient 500 of normal saline and we will follow up. 4. Diabetes, as by Primary. 5. Disposition: Patient awaiting for chair time. Time spent examining the patient [id number] reviewing the data and clapper and the radiology placing order discussing the case with the patient discussing the case with the state farm agent team member including hospitalist and nursing staff more than 55 minutes GUERO Voice ID: [id number] Report ID: [id number] TOÑA
[2024-01-28] MEDS: NA CHLORIDE 0.9% 500 ML IV SCH (13:24)
[2024-01-28] MEDS: CALCIUM CARBONATE CHEW 500MG TAB PO SCH (16:30)
[2024-01-28] MEDS: NA CHLORIDE 0.9% 500 ML ONE (22:40)
[2024-01-29 08:23] LABS: Absolute Basophils 0.1 K/uL (0-0.5); Absolute Eosinophils 0.2 K/uL (0-0.5); Absolute Lymphocytes (CBC) 1.3 K/uL (0.7-4.9); Absolute Monocytes 0.8 K/uL (0.1-1.3); Absolute Neutrophil 6.8 K/uL (1.8-8.0); Basophils % 0.7 % (0-1.3); Eosinophils % 1.9 % (0-4.4); Hematocrit 34.3 % (39.6-49.0); Hemoglobin 11.2 g/dL (13.6-17.9); Lymphocytes % 14.2 % (15.3-44.8); MCH 30.7 pg (27.0-35.0); MCHC 32.6 g/dL (32.0-36.0); MPV 9.4 fL (7.6-11.3); Monocytes % 8.3 % (3.3-12.3); Neutrophils % 74.9 % (41.7-73.7); Platelets 183 thou/uL (152-406); RBC Red Blood Cell Count 3.65 M/uL (4.33-5.43); Red Cell Distribution Width 14.5 % (12.1-15.2)
[2024-01-29 08:33] LABS: Albumin 3.2 g/dL (3.4-5.0); Anion Gap 13.6 mEq/L (5.0-15.0); Phosphorus 6.2 mg/dL (2.5-4.9); Potassium 3.6 mEq/L (3.5-5.1)
[2024-01-29] MEDS ORDERED: HYDROCODONE/APAP 5/325 MG TAB PO PRN (09:34)
[2024-01-29] MEDS: ACETAMINOPHEN 500 MG TAB PO PRN (11:43)
--- NOTE | 2024-01-29 12:38 | EKG ---
Test Date: 2024-01-28 Test Time: 21:11:12 Strategic Account Manager: AMY MEASUREMENT RESULTS: Intervals: Rate: 68 MN: 64 QRSD: 180 QT: 418 QTc: 444 [place]: P: -26 MN: 64 QRS: -73 T: 36 INTERPRETIVE STATEMENTS: Sinus rhythm with short MN Left axis deviation Left ventricular hypertrophy with QRS widening Lateral infarct, age undetermined Inferior infarct, age undetermined Abnormal ECG Compared to ECG 01/18/2024 15:24:18 Short MN interval now present Left-axis deviation now present Left ventricular hypertrophy now present Uncertain supraventricular rhythm no longer present Right bundle-branch block no longer present Electronically Signed On 01-29-24 12:38:03 CDT by Cristo Reyes
--- NOTE | 2024-01-29 13:59 | P.PN ---
Subjective Date of Service: 01/29/24 Chief Complaint: CP, CHF, CKD with ARLENE Subjective: Other (weak and dizzy) <Ayesha Nguyen - Last Filed: 01/29/24 13:53> Date of Service: 01/29/24 <Dalila Adan - Last Filed: 01/29/24 18:25> Review of Systems General: Weakness, Malaise Cardiovascular: Light Headedness Neurological: Weakness, As per HPI <Miri Nguyenkristie Whatley - Last Filed: 01/29/24 13:53> Physical Examination - Vital Signs Temperature: 98.2 F Blood Pressure: 150/78 Pulse: 71 Respirations: 16 Pulse Ox (%): 97 - Physical Exam General: Alert, In no apparent distress, Oriented x3 HEENT: Atraumatic, Normocephalic Neck: Supple Respiratory: Normal air movement Cardiovascular: Normal pulses, Regular rate/rhythm, Normal S1 S2 Capillary refill: <2 Seconds Gastrointestinal: Soft and benign Musculoskeletal: No clubbing Integumentary: No rashes Neurological: Normal speech, Normal affect, Abnormal strength, Abnormal tone Lymphatics: No axilla or inguinal lymphadenopathy Urinary: Dialysis catheter External genitalia: Deferred Rectal: Deferred - Studies Medications List Reviewed: Yes <Miri Nguyeny Chacorta - Last Filed: 01/29/24 13:53> Assessment And Plan - Plan Angina with CAD, HTN, HLD HFpEF Patient's shortness of breath has worsened. Patient's PND/orthopnea has worsened. Edema of the lower extremities has improved mildly. Patient with decompensated congestive heart failure. Dyspnea on exertion. Echocardiogram doone Cardiology consultation -Dr. Reyes following and performed left heart cath with PCI of the OM, placed on Brilinta Aggressive diuresis, diuresis medications decreased second to increasing ARLENE Statin continues Daily weight Education regarding diet and treatment of congestive heart failure with preserved EF Diabetes monitor and trend SSI with moderate coverage renal diet CKD with ARLENE creat 3.14 with GFR 21 diuresis per nephrology monitor and trend Consult Dr. Juarez/Mathieu-following Ferritin/Iron level 01/18 creatinine 3.5/GFR 18 lasix increased to 40mg TID and then decreased to twice daily Creatinine 01/20 3.96 Pt had to begin dialysis. creatinine 01/28 7.07 - pt is status post two rounds of dialysis. Iron deficiency anemia supplement daily Pt is weak and would benefit from inpatient rehab. PT and business services administrator consulted. VTE/GI prophylaxis asa, Brilinta/protonix Full code - Code Status/Comfort Care Code Status: Full Code Time Spent Managing PTS Care (In Minutes): 30 <Ayesha Nguyen - Last Filed: 01/29/24 13:53> - Plan Pt seen and examined. I agree with the note by the COMPRESSOR STATION CHIEF ENGINEER. Pt complains of dizziness. Continue dialysis and Lasix 40mg iv BID. Nephrology is following. Cardiology did cardiac cath on 01/19/24 and placed a stent. Will continue brilinta and aspirin for at least 1 years. There is moderate mid LAD disease. Echo shows EF 60 - 65% with grade I diastolic dysfunction. Will optimize BP regimen. <Dalila Adan - Last Filed: 01/29/24 18:25>
--- NOTE | 2024-01-29 18:30 | PN ---
Date of Progress Note: 01/29/2024 Chief Complaint: Acute kidney injury on chronic kidney disease. Subjective: The patient has in the past chronic kidney disease and developed exacerbation of the chr onic kidney disease with acute on chronic kidney injury. The patient is initiated on hemodialysis fo r volume control and metabolic clearance. Renal function has not improved and there is no evidence o f renal function recovery. Patient has tunneled dialysis catheter and he will be dialyzed 3 times pe r week on Monday, Monday, Monday. Review of Systems: Denies chest pain, palpitation. Objective: Lungs: Few rhonchi. Heart: S1, S2. Abdomen: Soft. Extremities: Slight edema. Laboratory Data: BUN 55, creatinine 5.9, sodium 135, potassium 3.6, bicarbonate 24, calcium 9.0, sherley sphorus 6.3, albumin 3.2, corrected calcium is 9.8, GFR 10. Impression And Plan: 1.Acute kidney injury on advanced chronic kidney disease. The patient developed acute kidney injury in setting of cardiorenal syndrome and nonoliguric ATN. Patient is currently dialysis dependent and he is undergoing dialysis via tunneled dialysis catheter. Continue treatment with dialysis 3 times per week. Continue p.o. fluid restriction, low-sodium diet. Advance ultrafiltration to treat fluid overload. 2.Hypertension. Blood pressure is stabilizing. The patient was taken off lisinopril and Lasix is o n hold. Monitor blood pressure closely and monitor blood pressure during dialysis. Advance ultrafil tration goal according to blood pressure. 3.Syncope secondary to hypotensive episode. The patient received IV normal saline to stabilize blood pressure and currently he is hemodynamically stable. DICK/MODL Voice ID: [id number] Report ID: [id number]
[2024-01-30 06:10] LABS: Anion Gap 13.9 mEq/L (5.0-15.0); Potassium 3.9 mEq/L (3.5-5.1)
--- NOTE | 2024-01-30 12:43 | EKG ---
Test Date: 2024-01-28 Test Time: 21:13:28 Nipple Threader: AMY MEASUREMENT RESULTS: Intervals: Rate: 68 MT: 72 QRSD: 178 QT: 410 QTc: 435 [place]: P: -27 MT: 72 QRS: -74 T: 60 INTERPRETIVE STATEMENTS: Sinus rhythm with short MT Left axis deviation Left ventricular hypertrophy with QRS widening and repolarization abnormality Lateral infarct, age undetermined Inferior infarct, age undetermined Abnormal ECG Compared to ECG 01/28/2024 21:11:12 Early repolarization now present Myocardial infarct finding still present Electronically Signed On 01-30-24 12:40:32 CDT by Cristo Reyes
--- NOTE | 2024-01-30 12:44 | EKG ---
Test Date: 2024-01-28 Test Time: 16:55:20 Hoof And Shoe Inspector: BRENDA MEASUREMENT RESULTS: Intervals: Rate: 67 [place]: QRSD: 140 QT: 416 QTc: 439 [place]: P: 269 [place]: QRS: -68 T: 24 INTERPRETIVE STATEMENTS: Atrial flutter with 4:1 AV conduction Left axis deviation Left ventricular hypertrophy with QRS widening Inferior infarct, age undetermined Abnormal ECG Compared to ECG 01/18/2024 15:24:18 Left-axis deviation now present Left ventricular hypertrophy now present Uncertain supraventricular rhythm no longer present Right bundle-branch block no longer present Left anterior fascicular block no longer present Bifascicular block no longer present Myocardial infarct finding still present Electronically Signed On 01-30-24 12:41:43 CDT by Cristo Reyes
--- NOTE | 2024-01-30 14:29 | P.PN ---
Subjective Date of Service: 01/30/24 Chief Complaint: CP, CHF, CKD with ARLENE c/o dizziness post dialysis. Stated he was better this am but then had a sudden bout of N/V/D. Became very weak/dizzy. Assisted back to bed and recovered after 20-30 minutes <Miri Nguyeny Chacorta - Last Filed: 01/30/24 14:24> Date of Service: 01/30/24 <Dalila Adna Deepti - Last Filed: 01/30/24 16:18> Review of Systems 10-point ROS is otherwise unremarkable Gastrointestinal: Nausea, Vomiting, Diarrhea Neurological: Weakness, Other (dizziness) <Ayesha Nguyen - Last Filed: 01/30/24 14:24> Physical Examination - Vital Signs Temperature: 96.8 F Blood Pressure: 144/73 Pulse: 72 Respirations: 18 Pulse Ox (%): 99 - Physical Exam General: Alert, Oriented x3, Cooperative, Mild distress HEENT: Atraumatic, Normocephalic Neck: Supple Respiratory: Normal air movement Cardiovascular: No edema, Normal S1 S2, Systolic murmur Capillary refill: <2 Seconds Gastrointestinal: Normal bowel sounds Musculoskeletal: No clubbing Integumentary: No rashes Neurological: Normal speech, Normal tone, Abnormal strength, Abnormal affect Lymphatics: No axilla or inguinal lymphadenopathy External genitalia: Deferred Rectal: Deferred - Studies Medications List Reviewed: Yes <Ayesha Nguyen - Last Filed: 01/30/24 14:24> Assessment And Plan - Plan Angina with CAD, HTN, HLD HFpEF Edema of the lower extremities has improved greatly. Patient with decompensated congestive heart failure now on HD Echocardiogram doone Cardiology consultation -Dr. Reyes following and performed left heart cath with PCI of the OM, placed on Brilinta Aggressive diuresis, diuresis medications decreased second to increasing ARLENE Statin continues Daily weight Education regarding diet and treatment of congestive heart failure with preserved EF Diabetes monitor and trend SSI with moderate coverage renal diet CKD with ARLENE creatinine increased and HD started diuresis per nephrology monitor and trend Consult Dr. Juarez/Mathieu-following 01/18 creatinine 3.5/GFR 18 lasix increased to 40mg TID and then decreased to twice daily - held for hypotension Creatinine 01/20 3.96 Pt had to begin dialysis. creatinine 01/28 7.07 - pt is status post two rounds of dialysis. 01/29 dizziness. Nephrology aware and will HD as appropriate Iron deficiency anemia supplement daily Pt is weak and would benefit from inpatient rehab. PT and social services aide consulted. Auth- will have bed tomorrow. VTE/GI prophylaxis asa, Brilinta/protonix Full code Time Spent Managing PTS Care (In Minutes): 35 <Ayesha Nguyen - Last Filed: 01/30/24 14:24> - Plan Pt seen and examined. I agree with the note by the BACTERIOLOGY TECHNICIAN. Pt complains of dizziness. Continue dialysis and Lasix 40mg iv BID. Nephrology is following. Cardiology did cardiac cath on 01/19/24 and placed a stent. Will continue brilinta and aspirin for at least 1 years. There is moderate mid LAD disease. Echo shows EF 60 - 65% with grade I diastolic dysfunction. Will optimize BP regimen. Pt is still having diarrhea. C diff is negative on 01/21/24. Will give loperamide. Pt will benefit from rehab placement. <Dalila Adan - Last Filed: 01/30/24 16:18>
--- NOTE | 2024-01-30 18:27 | PN ---
Date of Progress Note: 01/30/2024 Subjective: The patient was admitted to the hospital with overvolume, acute kidney injury on advanced chronic kidney disease. The patient was initiated on dialysis, tolerated. Patient complaining from dizziness. Objective: Vital Signs: Blood pressure 144/73, pulse of 72, afebrile. Chest: Clear to auscultation. Heart: S1, S2. Regular. Abdomen: Soft, nontender, obese. Extremities: Plus edema. Neurologic: Alert. No focality. Laboratory Data: Hemoglobin 11.2, sodium 134, potassium 3.9, bicarb 22, BUN 50, creatinine 6.3, calcium 8.9. Current Medications: The patient on, include: 1. Heparin. 2. Brilinta. 3. Hydralazine. 4. Atorvastatin. 5. Loperamide. 6. Insulin. 7. Calcitriol. Assessment And Plan: 1. Chronic kidney disease progression to end-stage renal disease. We will continue the patient on dialysis. We will schedule the patient for dialysis tomorrow and we will follow up the patient. The patient awaiting for placement. 2. Hypertension, controlled, optimal. Continue current treatment. 3. Secondary hyperparathyroidism. Continue calcitriol. 4. Anemia of chronic kidney disease. We will hold the MEGHNA given the current hemoglobin. 5. Diabetes with peripheral neuropathy, deconditioning. Continue PT, OT. Time spent examining the patient [id number] reviewing the data and clapper and the radiology placing order discussing the case with the patient discussing the case with the contact center team lead including hospitalist and nursing staff more than 55 minutes GUERO Voice ID: [id number] Report ID: [id number] TOÑA
[2024-01-31 08:56] VITALS: BP 121/61; TEMP 97.9
--- NOTE | 2024-01-31 09:51 | P.DS ---
Admission Date: 01/18/24 Discharge Date: 01/31/24 Reason for Admission: CP, CHF, CKD with ARLENE Consultations: Dr. Mathieu Diaz Brief History of Present Illness: Mr. Friedman is a 68-year-old male with a past medical history of diabetes, with retinopathy and neuropathy, hypertension, hyperlipidemia, CHF, obesity, and CKD. He arrives to the emergency department today with chest pain and shortness of breath. He states the chest pressure started just prior to arrival to the emergency department. It was associated with nausea, diarrhea, shortness of breath. He denies fever, ill contacts, cough, or syncope. He was seen by Dr. Villa in January of last year and had an echo that showed preserved ejection fraction of 60 to 65% with grade 1 diastolic dysfunction. He is also followed by Dr. Juarez and Mathieu for CKD. At bedside he is alert and oriented, vital signs are 142/77, 101, 22, 98%, with significant fluid overload with 3+ pitting edema to the lower extremities. He is on 4 L of oxygen per nasal cannula. His EKG in the emergency department showed a sinus tachycardia with a leftward axis bifascicular block with nonspecific diffuse ST-T changes without evidence of acute ischemia. We will admit him for aggressive diuresis, serial enzymes, further evaluation, and consultation to cardiology and nephrology. Hospital Course: Mr. Rodriguez was admitted with cardiorenal syndrome with acute kidney injury. Aggressive diuresis, albumin, and IV iron failed to improve creatinine clearance effectively. Dr. Reyes evaluated Mr. Rodriguez and took him to the [facility] for left heart cath and he received PCI x 2. Mr. Rodriguez has heart failure with preserved ejection fraction Most recent echo result: COMMENTS: 1. NORMAL LEFT VENTRICULAR SYSTOLIC FUNCTION, EJECTION FRACTION 60-65%, NORMAL WALL MOTION 2. GRADE II DIASTOLIC DYSFUNCTION 3. ELEVATED FILLING PRESSURE (RIGHT ATRIUM GREATER THAN 20 mmHg) Dr. Murdock has has been managing the patient's renal failure and a dialysis catheter was placed per Dr. Diaz on 01/26/2024. The plan per nephrology will be to continue dialysis, control hypertension, continue current medications, and have patient work with PT and OT secondary to deconditioning. Mr. Rodriguez has had episodic diarrhea. On admission he was ruled out for C. difficile. After starting dialysis he does have some continued diarrhea, and some dizziness with position change. Mr. Rodriguez will be transferred to inpatient rehab today Current medications include Aspirin 81 mg p.o. daily Brilinta 90 mg p.o. twice daily Coreg 25 mg p.o. twice daily Atorvastatin 40 mg p.o. nightly Loperamide 2 mg p.o. every 4 as needed Insulin mild sliding scale Calcitriol 0.25 mcg p.o. every 48 H <Ayesha Nguyen - Last Filed: 01/31/24 09:36> Admission Date: 01/18/24 Discharge Date: 01/31/24 Hospital Course: Pt seen and examined. I agree with the note by the DISTRICT COURT ADMINISTRATOR. Pt reports thath the diarrhea is improving. C diff is negative. Will transfer to inpatient rehab. Ok to to discharge pt. <Dalila Adan - Last Filed: 01/31/24 12:23> Disposition: TRANSFER TO INPATIENT REHAB Discharge Condition: GOOD Vital Signs/Physical Exam: Temp Pulse Resp BP Pulse Ox 97.9 F 73 20 121/61 94 01/31/24 08:00 01/31/24 08:00 01/31/24 08:00 01/31/24 08:00 01/31/24 08:00 General: Alert, In no apparent distress, Oriented x3 HEENT: Atraumatic, Normocephalic Neck: Supple Respiratory: Clear to auscultation bilaterally, Normal air movement Cardiovascular: No edema, Regular rate/rhythm, Normal S1 S2 Capillary refill: <2 Seconds Gastrointestinal: Soft and benign Musculoskeletal: No clubbing Integumentary: No rashes, Other Neurological: Normal speech, Normal tone, Normal affect, Other (Generalized weakness secondary to deconditioning) Lymphatics: No axilla or inguinal lymphadenopathy External genitalia: Deferred Rectal: Deferred Laboratory Data at Discharge: WBC 9.00 thou/uL (4.3-10.9) 01/29/24 07:40 Hgb 11.2 g/dL (13.6-17.9) L 01/29/24 07:40 Hct 34.3 % (39.6-49.0) L 01/29/24 07:40 Plt Count 183 thou/uL (152-406) 01/29/24 07:40 PT 12.8 SECONDS (9.4-12.5) H 01/19/24 06:50 INR 1.15 01/19/24 06:50 Sodium 134 mEq/L (136-145) L 01/30/24 04:57 Potassium 3.9 mEq/L (3.5-5.1) 01/30/24 04:57 BUN 50 mg/dL (7-18) H 01/30/24 04:57 Creatinine 6.32 mg/dL (0.70-1.30) H 01/30/24 04:57 Glucose 109 mg/dL (74-106) H 01/30/24 04:57 Phosphorus 6.2 mg/dL (2.5-4.9) H 01/29/24 07:40 Magnesium 2.0 mg/dL (1.6-2.4) 01/24/24 08:54 Total Bilirubin 0.8 mg/dL (0.2-1.0) 01/24/24 08:54 AST 20 U/L (15-37) 01/24/24 08:54 ALT 26 U/L (16-61) 01/24/24 08:54 Alkaline Phosphatase 94 U/L (45-117) 01/24/24 08:54 Triglycerides 216 mg/dL (<150) H 01/19/24 06:50 Cholesterol 210 mg/dL (<200) H 01/19/24 06:50 HDL Cholesterol 41 mg/dL (40-60) 01/19/24 06:50 Cholesterol/HDL Ratio 5.12 01/19/24 06:50 <Nguyen,Ayesha Chacorta - Last Filed: 01/31/24 09:36> Vital Signs/Physical Exam: Temp Pulse Resp BP Pulse Ox 97.9 F 73 20 121/61 94 01/31/24 08:00 01/31/24 08:00 01/31/24 08:00 01/31/24 08:00 01/31/24 08:00 Laboratory Data at Discharge: WBC 9.00 thou/uL (4.3-10.9) 01/29/24 07:40 Hgb 11.2 g/dL (13.6-17.9) L 01/29/24 07:40 Hct 34.3 % (39.6-49.0) L 01/29/24 07:40 Plt Count 183 thou/uL (152-406) 01/29/24 07:40 PT 12.8 SECONDS (9.4-12.5) H 01/19/24 06:50 INR 1.15 01/19/24 06:50 Sodium 134 mEq/L (136-145) L 01/30/24 04:57 Potassium 3.9 mEq/L (3.5-5.1) 01/30/24 04:57 BUN 50 mg/dL (7-18) H 01/30/24 04:57 Creatinine 6.32 mg/dL (0.70-1.30) H 01/30/24 04:57 Glucose 109 mg/dL (74-106) H 01/30/24 04:57 Phosphorus 6.2 mg/dL (2.5-4.9) H 01/29/24 07:40 Magnesium 2.0 mg/dL (1.6-2.4) 01/24/24 08:54 Total Bilirubin 0.8 mg/dL (0.2-1.0) 01/24/24 08:54 AST 20 U/L (15-37) 01/24/24 08:54 ALT 26 U/L (16-61) 01/24/24 08:54 Alkaline Phosphatase 94 U/L (45-117) 01/24/24 08:54 Triglycerides 216 mg/dL (<150) H 01/19/24 06:50 Cholesterol 210 mg/dL (<200) H 01/19/24 06:50 HDL Cholesterol 41 mg/dL (40-60) 01/19/24 06:50 Cholesterol/HDL Ratio 5.12 01/19/24 06:50 <Dalila Adan - Last Filed: 01/31/24 12:23> Diet: Renal Activity: Fall precautions <Nguyen,Ayesha Chacorta - Last Filed: 01/31/24 09:36> <Dalila Adan - Last Filed: 01/31/24 12:23> Home Medications: Aspirin 1 tab PO DAILY 10/11/19 Cetirizine HCl 1 tab PO DAILY PRN 01/30/23 Dapagliflozin Propanediol [Farxiga] 1 tab PO DAILY 01/30/23 Hydralazine [Apresoline*] 1 tab PO BID 01/30/23 Insulin Glargine,Hum.rec.anlog [Juliane Lancaster] 12 unit SQ BEDTIME 01/30/23 Pioglitazone HCl 1 tab PO DAILY 01/30/23 Potassium Chloride [Klor-Con 10] 1 tab PO DAILY 01/30/23 Amlodipine [Norvasc*] 10 mg PO DAILY #30 tab 02/07/23 Amlodipine [Norvasc*] 5 mg PO DAILY tab 01/22/24 Atorvastatin Calcium [Lipitor] 40 mg PO BEDTIME 30 Days #30 tab 01/22/24 Ticagrelor [Brilinta*] 90 mg PO BID 30 Days #60 mg 01/22/24 carvediloL [Coreg] 25 mg PO BID 30 Days #60 tab 01/23/24 New Medications: Ticagrelor [Brilinta*] 90 mg PO BID 30 Days #60 mg carvediloL [Coreg] 25 mg PO BID 30 Days #60 tab Atorvastatin Calcium [Lipitor] 40 mg PO BEDTIME 30 Days #30 tab Physician Discharge Instructions: Mr. Friedman is a 68-year-old male with a past medical history of diabetes, with retinopathy and neuropathy, hypertension, hyperlipidemia, CHF, obesity, and CKD. He arrives to the emergency department today with chest pain and shortness of breath. He states the chest pressure started just prior to arrival to the emergency department. He was noted to have unstable angina, acute on chronic diastolic heart failure, he was evaluated by cardiology, and nephrology. Condition improved with medication management by nephrology for acute heart failure, acute kidney injury. He is status post cardiac cath with PCI, cardiac cath on 01/19/24 and placed a stent. Mr. Rodriguez was admitted with cardiorenal syndrome with acute kidney injury. Aggressive diuresis, albumin, and IV iron failed to improve creatinine clearance effectively. Mr. Rodriguez has heart failure with preserved ejection fraction Most recent echo result: COMMENTS: 1. NORMAL LEFT VENTRICULAR SYSTOLIC FUNCTION, EJECTION FRACTION 60-65%, NORMAL WALL MOTION 2. GRADE II DIASTOLIC DYSFUNCTION 3. ELEVATED FILLING PRESSURE (RIGHT ATRIUM GREATER THAN 20 mmHg) Dr. Murdock has has been managing the patient's renal failure and a dialysis catheter was placed per Dr. Diaz on 01/26/2024. The plan per nephrology will be to continue dialysis, control hypertension, continue current medications, and have patient work with PT and OT secondary to deconditioning. Mr. Rodriguez has had episodic diarrhea. On admission he was ruled out for C. difficile. After starting dialysis he does have some continued diarrhea, and some dizziness with position change. Current medications include Aspirin 81 mg p.o. daily Brilinta 90 mg p.o. twice daily Coreg 25 mg p.o. twice daily Atorvastatin 40 mg p.o. nightly Loperamide 2 mg p.o. every 4 as needed Insulin mild sliding scale Calcitriol 0.25 mcg p.o. every 48 H PROBLEM: Acute on chronic diastolic heart failure follow-up with cardiology after discharge Unstable angina Chronic kidney disease, acute kideny injury Will need to continue Brilinta for 1 year postcardiac cath, Mr. Rodriguez will be transferred to inpatient rehab today Diet: Renal, low sodium Activity: Fall precautions Followup: Cristo Reyes MD [ACTIVE - CAN ADMIT] - OSMAN RAINEY [Primary Care Provider] - Jerilyn Villalobos MD [OUTSIDE PHYSICIAN] -
--- NOTE | 2024-01-31 12:27 | PN ---
Date of Progress Note: 01/31/2024 Subjective: The patient was admitted to the hospital with acute kidney injury on advanced chronic kidney disease, progression to end-stage renal disease. The patient was initiated on dialysis. The patient was tolerating the dialysis yesterday. Has dizziness. We adjusted blood pressure medication. The patient feeling better. Physical Examination: Vital Signs: When I saw the patient, blood pressure 121/61, pulse of 73, afebrile. Chest: Clear to auscultation. Heart: S1, S2 regular. Abdomen: Soft nontender. The patient is obese, could not appreciate any organomegaly. Extremities: Plus edema. Neurologic: Alert. No focality. Laboratory Data: Hemoglobin 11.2. Sodium 134, potassium 3.9, bicarb 22, BUN 50, creatinine 6.3, calcium 8.9. Current Medications: The patient is on include; 1. Lasix. 2. Heparin. 3. Calcium carbonate. 4. Nitroglycerin. 5. Atorvastatin. 6. Loperamide. 7. Zofran. 8. Pantoprazole. Assessment And Plan: 1. End-stage renal disease. We will start on dialysis. We will continue dialysis Monday, Monday, Monday. Awaiting for replacement. 2. Hypertension, controlled, optimal. Continue current treatment. 3. Congestive heart failure with exacerbation, currently normal volume. Continue dialysis 3 times a week. Continue Lasix. 4. Secondary hyperparathyroidism. Continue calcitriol and Tums and we will follow up. 5. Diarrhea. We will follow up with primary. C. diff negative. 6. Diabetes as by primary. 7. Congestive heart failure with exacerbation, currently normal volume. We will continue to monitor. Time spent examining the patient [id number] reviewing the data and clapper and the radiology placing order discussing the case with the patient discussing the case with the garment steamer including hospitalist and nursing staff more than 55 minutes GUERO Voice ID: [id number] Report ID: [id number] TOÑA
[2024-01-31 12:29] VITALS: O2SAT 95
== END 2024-01-31 12:18 | DRG 673 ==
LOC: ER 15:11 → ERHOLD 17:04 → 2ND 17:58 → UNDODISIN 01-25 10:14 → 2ND 01-25 11:51
PROVIDERS: ADMIT Hospitalist; ATTEND Hospitalist
PROC: 027034Z Dilation of Coronary Artery, One Artery with Drug-eluting Intraluminal Device, Percutaneous Approach (ICD-10-PCS; 2024-01-19)
PROC: 4A023N7 Measurement of Cardiac Sampling and Pressure, Left Heart, Percutaneous Approach (ICD-10-PCS; 2024-01-19)
PROC: B2111ZZ Fluoroscopy of Multiple Coronary Arteries using Low Osmolar Contrast (ICD-10-PCS; 2024-01-19)
PROC: 5A1D70Z Performance of Urinary Filtration, Intermittent, Less than 6 Hours Per Day (ICD-10-PCS; 2024-01-26)
PROC: 0T9B70Z Drainage of Bladder with Drainage Device, Via Natural or Artificial Opening (ICD-10-PCS; 2024-01-26)
PROC: 02HV33Z Insertion of Infusion Device into Superior Vena Cava, Percutaneous Approach (ICD-10-PCS; 2024-01-26)
PROC: 0JH63XZ Insertion of Tunneled Vascular Access Device into Chest Subcutaneous Tissue and Fascia, Percutaneous Approach (ICD-10-PCS; principal; 2024-01-26 12:00)
DX: N17.0 Acute kidney failure with tubular necrosis (principal); I50.33 Acute on chronic diastolic (congestive) heart failure; J96.91 Respiratory failure, unspecified with hypoxia; I25.110 Atherosclerotic heart disease of native coronary artery with unstable angina pectoris; I13.2 Hypertensive heart and chronic kidney disease with heart failure and with stage 5 chronic kidney disease, or end stage renal disease; Z68.41 Body mass index [BMI] 40.0-44.9, adult; E87.20 Acidosis, unspecified; N18.6 End stage renal disease; N25.81 Secondary hyperparathyroidism of renal origin; E66.9 Obesity, unspecified; E11.22 Type 2 diabetes mellitus with diabetic chronic kidney disease; E11.42 Type 2 diabetes mellitus with diabetic polyneuropathy; D63.1 Anemia in chronic kidney disease; D50.9 Iron deficiency anemia, unspecified; I16.0 Hypertensive urgency; E78.5 Hyperlipidemia, unspecified; E83.39 Other disorders of phosphorus metabolism; E87.5 Hyperkalemia; Z99.2 Dependence on renal dialysis; Z79.4 Long term (current) use of insulin; Z79.82 Long term (current) use of aspirin; Z79.02 Long term (current) use of antithrombotics/antiplatelets; Z79.899 Other long term (current) drug therapy; Z91.158 Patient's noncompliance with renal dialysis for other reason
CPT/HCPCS: 36415; 71045; 76000; 76770; 76937; 80048; 80053; 80061; 80069; 80076; 81001; 82306; 82570; 82728; 82947; 83036; 83540; 83735; 83880; 83935; 83970; 84100; 84156; 84165; 84300; 84443; 84484; 85025; 85347; 85610; 86704; 86706; 86803; 87324; 90935; 93005; 93306; 93454; 94640; 96374; 97116; 97161; 97530; 99152; 99153; 99285; C1725; C1752; C1893; C9600; J0360; J0690; J1100; J1644; J1940; J2001; J2250; J2405; J2704; J2916; J3010; J3475; J7030; J7040; J7644; P9047; Q9966

== ENCOUNTER 2024-01-31 10:43 | Inpatient (IN) | payer OTHER ==
[2024-01-31] MEDS ORDERED: CETIRIZINE HCL 5 MG TABLET PO PRN (13:55)
[2024-01-31] MEDS ORDERED: ACETAMINOPHEN 500 MG TAB PO PRN (14:20)
[2024-01-31] MEDS ORDERED: DOCUSATE NA/SENNA CONC 1 TAB PO PRN (14:20)
[2024-01-31] MEDS: ONDANSETRON 4 MG (ODT) TAB PO PRN (15:32)
[2024-01-31] MEDS: INSULIN REGULAR (HUMAN) 100 UNIT/ML SQ SCH (16:30)
[2024-01-31] MEDS: carvediloL 25 MG TAB PO SCH (17:19)
[2024-01-31] MEDS ORDERED: INSULIN GLARGINE 100 UNIT/ML SQ ONE (18:09)
[2024-01-31 18:11] LABS: Hepatitis B surface AG Interp. Nonreactive (Nonreactive)
[2024-01-31 18:12] LABS: HBsAG Nonreactive Report Report
[2024-01-31] MEDS: ATORVASTATIN 40 MG TAB PO SCH (20:27)
[2024-01-31] MEDS: HYDRALAZINE HCL 25 MG TABLET PO SCH (20:27)
[2024-01-31] MEDS: TICAGRELOR 90 MG TABLET PO SCH (20:27)
[2024-01-31] MEDS: INSULIN GLARGINE 100 UNIT/ML SQ SCH (20:27)
[2024-01-31] MEDS: CALCITROL 0.25 MCG CAP PO SCH (20:27)
[2024-01-31] MEDS: GABAPENTIN 100 MG CAP PO SCH (20:28)
--- NOTE | 2024-01-31 21:24 | HP ---
Date of Admission: 01/31/2024 Time Of Service: 1:10 p.m. History Of Present Illness: Mr. Rodriguez is a 68-year-old, right-handed, patient with hyper tension; diabetes mellitus; obstructive sleep apnea; CHF; chronic kidney disease, now on hemodialysis , who presented to the emergency department on 01/18/2024 with shortness of breath and chest pain. E valuation revealed angina with coronary artery disease, hypertension, dyslipidemia, diabetes mellitus , and chronic kidney disease with acute on chronic findings requiring the nephrology service to insti tute hemodialysis. Next, found to be anemic secondary to the chronic kidney disease, and peripheral neuropathy and myocardial infarction. He had a left heart catheterization, vessel reconstitution, ag gressive dialysis, and Hemodialysis. He during his hospital stay did become significantly weak and debilitated in both the lower and upper extremities. His oxygen saturation was low, requiring supplemental oxygen by nasal c annula. Furthermore, he developed significant hypotension with orthostatic changes, which dropped ma rkedly as the patient would go from a lying to sitting and standing position. His blood sugar levels were elevated. He developed in hospital course complication of nausea, vomiting with some overall d ebility and lack of endurance. Prior to his hospitalization and illness, he was per his , mostly independent, mobilizing well, occasionally requiring use of a walker at home, but despite that, he w as able to shower, dress himself, prepare microwave meals, and manage activities of daily living. Cu rrently, requires moderate assistance with some speech tasks, minimum assistance with ambulation, and has a proximal to distal weakness consistent with a myopathy. He is now in the inpatient rehabilita tion unit for physical, occupational, and speech therapy to help reduce his rehospitalization and to have him return towards his prior level of functioning. Past Medical History: As noted above. Past Surgical History: Appendectomy, subtotal cholecystectomy in 2019, ERCP 2019. Allergies: NO KNOWN DRUG ALLERGIES. X-ray/imaging: Chest x-ray on 01/18/2024 shows a limited quality, mild interstitial pulmonary edema, heart prominently large. No displaced fracture and impression is mild congestive heart failure. Re nal ultrasound on 01/20/2024, unremarkable. No hydronephrosis. Chest x-ray repeated on 01/25 shows right-sided venous catheter in place with tip in SVC. No pneumothorax. There was moderate bilateral pulmonary opacities likely representing pulmonary edema. Heart mildly enlarged. EKG, his EKG on shows wide QRS complex, right bundle branch block, left anterior fascicular block, possible anter olateral infarct and echocardiogram on 01/17, normal left ventricular systolic function. Ejection fr action 65%. Normal wall motion. Grade 2 diastolic dysfunction. Elevated filling pressure of the ri ght atrium greater than 20. The EKG done on 01/27 showed atrial flutter with 4:1 AV conduction, left axis deviation, left ventricular hypertrophy with QRS widening, inferior infarct age undetermined. He is followed by Cardiology, Nephrology while in an acute unit. Family History: Noncontributory. Social History: No recent alcohol, tobacco, or drug use. Patient lives at home with family. Current Medications: Tylenol 500 mg every 6 hours as needed, Norvasc 5 mg daily, atorvastatin 40 mg daily, Rocaltrol 0.25 mcg every 48 hours, Coreg 25 mg twice daily, Zyrtec 10 mg daily, gabapentin 100 mg twice daily, Apresoline 25 mg twice daily, Semglee insulin 12 units at bedtime, melatonin 3 mg at bedtime, midodrine 5 mg daily, Zofran 4 mg every 4 hours, Actos 45 mg with breakfast, potassium 10 m Eq daily, Senokot 2 at bedtime, Brilinta 90 mg twice daily. Review of Systems: Sabra reports moderate shortness of breath, moderate weakness proximally in the lower and upper e xtremities more than distally. Some myalgias, arthralgias. Denies any rash. No psychiatric complai nts. He does produce very little urine, and he is on hemodialysis Monday, Monday, Fridays and den ies any issues of stool such as constipation or diarrhea at this point. Current Level Of Functioning: Currently, Mr. Rodriguez is at setup assistance for eating, oral hygien e. Moderate assistance for toileting, showering upper body dressing, lower body dressing and donning and doffing footwear. Supervision for rolling agimj-[id number]-[id number], lgir-ci-ziidt, and for lying to sittin g on side of bed. For [id number]-rugpo, moderate assistance. Transfer from bed to chair, to toilet mode rate assistance. Ambulation moderate assistance with a Rollator covering 20 feet. Physical Examination: Vital Signs: Blood pressure while in bed 121/73, pulse of 74. While sitting, 127/64, pulse is 75. While standing, 107/56, pulse of 76. His oxygen saturation is 97%. Temperature 97 as well and respi ratory rate 16 to 20. General: Mr. Rodriguez is lying in bed, getting ready for therapy session. HEENT: He appears normocephalic, atraumatic. Sclerae anicteric. Oropharynx is moist. Neck: Appears supple. Chest: Clear. Extremities: Show no significant edema, cyanosis. Stage II on heel on the left. Neurological: Evaluation shows a proximal and distal weakness, but still strong enough to be able to move the leg at a 5 count and that is both sides. Rehab And Medical Assessment And Plan: Mr. Rodriguez is admitted to the inpatient rehabilitation unit with impairment category 06, neurological condition. His impairment group code is 08.3, neuromuscul ar disorder. Etiologic diagnosis: Congestive heart failure myopathy. Comorbidities are chronic kid chuck injury with hemodialysis Monday, Monday, Monday; anemia; coronary artery disease; congestive h eart failure; decreased mobility; decreased physical functioning; diabetes mellitus; hypertension; pe ripheral neuropathy; myocardial infarction. Plan: 1.Mr. Rodriguez will have physical, occupational, and speech therapy for 3.5 hours, 5 of 7 days. 2.We will continue with the hemodialysis per the renal service. Continue with Brilinta for his anti platelet regimen. Continue with the Norvasc, Lipitor, Rocaltrol, Coreg, Zyrtec, gabapentin. He has the heparin on board for his dialysis. He has Semglee insulin for diabetes mellitus, Apresoline for blood pressure, melatonin for insomnia, midodrine for pressure support, specially the orthostatic zoe nges. Comorbidities That Are Impacting Rehabilitation: He has a stage II pressure ulcer as noted on heel w ound. Care will be involved. He has end-stage renal disease, on hemodialysis Monday, Monday, Mon. His rehabilitation will be worked around the schedule of hemodialysis. He has fall precautions in place. He has high risk of falling and injury and there may be episodes of significant orthostat ic hypotension and therefore gait belt and walker will be used at all times and pay careful attention to the patient's potential sudden loss of consciousness due to drop in blood pressure on standing. Rehab Specific Plan: Mr. Rodriguez will have physical, occupational, and speech therapy for 3.5 hours , 5 of 7 days to improve his ability to transfer from bed to chair, to wheelchair, to toilet, and to shower, to perform toileting and showering and perform dressing of upper body, dressing of lower body and donning and doffing of footwear. He will have 24 hours a day, 7 days a week skilled rehabilitat ion nursing and daily physician evaluation and management for integrating his medical conditions and management and his physical therapy. He will have social welfare research worker evaluation and management for home equipment discharge planning, medications, followup and continued physical therapy and occupational therapy is needed. Speech will again be involved in the patient's care. Barriers To Discharge: He is newly on hemodialysis and set that up with the renal service and his di scharge will likely require continued physical therapy potentially speech and Occupational therapy as well and that too will be set up. Does have a skin breakdown area and will have wound care involved with offloading and barrier protection applied. Length Of Stay: About 2 weeks. Disposition: Home with family and continue therapy via Home Health. Prognosis: Good. Rehab Specific Goals: 1.Become independent with upper and lower body dressing, donning and doffing of footwear. 2.Independently mobilize a wheelchair 250 feet and a rolling walker 250 feet and up and down 10 step s with bilateral handrails. 3.Independently perform all cognitive functioning. 4.Independently perform all the other activities of daily living as he needs. The above goals were reviewed with Mr. Rodriguez and he is in agreement. By signing this document, I acknowledge I personally performed a full physical examination on Mr. Emiliano brandt no later than 24 hours after his admission to the inpatient rehabilitation facility and determi anatoly that he is able to tolerate the above course of treatment at an intensive level for reasonable pe riod of time. A detailed individualized plan of care for him will be completed by hospital day 4 bas ed on the preadmission screen, history and physical, and therapy evaluations. AARON/QUIANA Voice ID: [id number]
--- NOTE | 2024-01-31 21:43 | RAD REPORT ---
EXAM DESCRIPTION: RAD - Chest Single View - 01/31/2024 9:31 pm CLINICAL HISTORY: shortness of breath Chest pain. COMPARISON: Abdomen 1 View (KUB) dated 01/31/2024; Chest Single View dated 01/26/2024; Chest Single Vi ew dated 01/18/2024; Chest Single View dated 10/24/2023 FINDINGS: Portable technique limits examination quality. Right sided CVL has its tip in the SVC. The lungs are grossly clear. The heart is normal in size. No displaced fractures.
--- NOTE | 2024-01-31 21:43 | RAD REPORT ---
EXAM DESCRIPTION: RAD - Abdomen 1 View (KUB) - 01/31/2024 9:31 pm CLINICAL HISTORY: rule out diverticulitis Pain COMPARISON: ABDOMEN 1 VIEW KUB dated 07/07/2015 FINDINGS: The bowel gas pattern is non-obstructive. No evidence of free air or pneumatosis. No suspi cious calcifications. No significant bony findings. Cholecystectomy IMPRESSION: Negative examination.
[2024-02-01 06:44] LABS: Absolute Basophils 0.1 K/uL (0-0.5); Absolute Lymphocytes (CBC) 0.7 K/uL (0.7-4.9); Absolute Monocytes 0.8 K/uL (0.1-1.3); Absolute Neutrophil 11.8 K/uL (1.8-8.0); Basophils % 0.5 % (0-1.3); Eosinophils % 0.3 % (0-4.4); Hematocrit 36.2 % (39.6-49.0); Lymphocytes % 5.1 % (15.3-44.8); MCH 30.7 pg (27.0-35.0); MCHC 33.1 g/dL (32.0-36.0); MCV 92.7 fL (80-100); Monocytes % 5.8 % (3.3-12.3); Neutrophils % 88.3 % (41.7-73.7); Nucleated Red Blood Cells % 0.1 % (0-0); Platelets 248 thou/uL (152-406); Red Cell Distribution Width 14.4 % (12.1-15.2)
[2024-02-01 06:49] LABS: Albumin 3.5 g/dL (3.4-5.0); Anion Gap 18.2 mEq/L (5.0-15.0); Magnesium 2.3 mg/dL (1.6-2.4); Potassium 4.2 mEq/L (3.5-5.1); Prealbumin 21.7 mg/dL (20-40)
[2024-02-01 07:52] LABS: Blood Morphology Comment NOT SEEN (NOT SEEN); Platelet Estimate ADEQ; White Blood Cell Scan OK (OK)
[2024-02-01] MEDS: PIOGLITAZONE 15 MG TAB PO SCH (08:00)
[2024-02-01] MEDS: DAPAGLIFLOZIN PO SCH (08:00)
[2024-02-01] MEDS: AMLODIPINE 5 MG TAB PO SCH (08:00)
[2024-02-01] MEDS: ASPIRIN 81 MG CHEWABLE TABLET PO SCH (08:24)
[2024-02-01] MEDS: MIDODRINE HCL 5 MG TABLET PO SCH (08:24)
[2024-02-01] MEDS: POTASSIUM CL SA 10 MEQ TAB PO SCH (08:24)
[2024-02-01] MEDS: CYANOCOBALAMIN 1000MCG/ML INJ IM ONE (14:51)
[2024-02-01 15:54] LABS: Arterial Blood Carboxyhemoglob 0.8 % (0-1.5); Blood Gas Oxyhemoglobin 74.1 % (94-97); Blood Gas THB 13.6 g/dl (12-18); Blood O2 Saturation 75.7 % (92-98.5)
[2024-02-01 15:55] LABS: Blood Gas Inspired Oxygen 0.2 %
[2024-02-01 17:12] VITALS: BMI 38.9
--- NOTE | 2024-02-01 17:21 | CON ---
Date of Consultation: 02/01/2024 Reason For Consultation: Elevated BUN and creatinine and fluid management. History Of Present Illness: This is a pleasant 68-year-old gentleman with significant past medical h istory of end-stage renal disease secondary to diabetes nephropathy, cardiorenal syndrome, recently s tarted on dialysis on January 2024, diabetes complicated with neuropathy, nephropathy, and retinopathy , obstructive sleep apnea, hypertension, congestive heart failure, diastolic dysfunction. The patien t admitted to the hospital with acute kidney injury, cardiorenal syndrome, and progressed to end-stag e renal disease, initiated on dialysis. The patient tolerated very well. The patient transferred to rehab. In the rehab, the patient complaining from orthostatic hypotension. Past Medical History: Includes: 1.Diabetes complicated with nephropathy and retinopathy and neuropathy. 2.Hypertension. 3.Hyperlipidemia. 4.CAD with congestive heart failure. Past Surgical History: Include: 1.Tunneled hemodialysis catheter. 2.ERCP. 3.Cholecystectomy. 4.Appendectomy. Family History: Positive for hypertension and diabetes. Social History: Denied smoking. Denied drinking. Denied drugs abuse. Review of Systems: Head and Neck: No red eye. No ear pain. GI: No nausea. No vomiting. : No polyuria. No dysuria. No hematuria. PURIFICATION OPERATOR HELPER: Not applicable. Respiratory: No shortness of breath. Cardiovascular: Has dizzy spell. Has orthostatic. No chest pain. Musculoskeletal: No joint pain. Neuro: Has neuropathy. Has dizziness and lightheaded. Endocrine: No polydipsia. No rash. Physical Examination: Vital Signs: When I saw the patient, blood pressure of 97/55, pulse of 79. Chest: Clear to auscultation. Heart: S1, S2. Regular. Abdomen: Soft, nontender. Extremity: Trace edema. Neuro: Alert. No focality. Laboratory Data: WBC 13.3, hemoglobin 12, sodium 135, potassium 4.2, bicarb 19, BUN 56, creatinine 7 .9, calcium 9.1. BNP 6400. TSH before it was 2.5. PTH 315. Current Medications: The patient on, it includes aspirin, heparin, Tegretol, carvedilol 12.5, hydral azine, amlodipine 5 mg, , Farxiga, calcitriol. Assessment And Plan: 1.End-stage renal disease. We will continue the patient on dialysis Monday, Monday, Monday. Wit h the presence of diabetes, discontinue Farxiga. 2.Hypertension with orthostatic hypotension. Discontinue hydralazine. Discontinue amlodipine. I a gree with decreasing carvedilol and we will follow up. 3.Anemia of chronic kidney disease. No need for MEGHNA. 4.Hyponatremia. Will be corrected with dialysis. 5.Acidosis. Will be corrected with dialysis. 6.Secondary hyperparathyroidism. I agree with calcitriol. 7.Diabetes, as by Primary. 8.Deconditioning. Continue PT, OT. LISA/MODL Voice ID: [id number] Report ID: [id number]
[2024-02-01] MEDS: carvediloL 12.5 MG TAB PO SCH (17:23)
[2024-02-01] MEDS: ENSURE MAX PROTEIN 330 ML LIQUID PO SCH (20:00)
[2024-02-01] MEDS: MELATONIN 3 MG TABLET PO PRN (20:30)
[2024-02-01] MEDS ORDERED: AMLODIPINE 5 MG TAB PO SCH (21:00)
--- NOTE | 2024-02-01 22:35 | PN ---
Subjective: Mr. Rodriguez is resting comfortably in room, waiting for last session of therapy for shukri gifford. Has no new complaints and is happy so far with therapy, is followed by the renal service. They did come by and see him today and hemodialysis per his schedule. Review of Systems: Denies any significant fevers, chills. No nausea or vomiting. Mild myalgias, arthralgias. No rash. No other positive findings. Physical Examination: Vital Signs: Blood pressure 124/66, pulse 71, respiratory rate of 16, temperature 97.6, O2 saturatio n 95%. General: Mr. Rodriguez again is resting comfortably, in no acute distress. Did have instances of hypotension. His Norvasc was discontinued. He had midodrine added for pressur e support. He is on a renal diet with restriction of fluid and he has a stroke risk addressed with a spirin. He did have complaints of reflux. Protonix has been added and potassium replacement on boar d. For his malnutrition again is Ensure Max Protein has been added. Laboratory Studies: White blood cell count 30.3, hemoglobin 12, platelets 248. Due to some sleepine ss, worry about CO2 retention. Arterial blood gas was drawn, pH was low at 7.23, pCO2 normal at 38.8 , and pO2 was low at 42.6. His bicarb was low at 17.3. The patient will have more oxygen supplement ation on board. Does have 2 L and the respiratory service is following the patient and may repeat in the morning an arterial blood gas. Other blood work is sodium 135, potassium 4.2, chloride 102, BUN 56, creatinine 7.99, glucose ranged from 107 to 159, calcium 9.1. Magnesium 2.3. Ammonia level is normal at 21. Beta natriuretic peptide elevated significantly at 6400. Albumin 3.5, prealbumin 21.7 . TSH 1.29. He did have a reactive hepatitis B surface antigen. Additional results are pending. Progress Made With Physical, Occupational, And Speech Therapy: With physical therapy today, ambulate d 50 feet, ambulated 80 feet x2 and 40 feet with contact guard to standby assistance. Mobilized whee lchair 100 feet and 50 feet with contact guard standby assist. He ambulated another 50 and 75 feet w ith [id number]-sw-[id number] assistance by afternoon. Did have some dry heaving as noted and the patient has been scheduled on Zofran. October consider Raglan if the Zofran is not very helpful. Note, he did m ultiple ihz-ci-pperc transfers with contact guard assistance to minimum assistance. Mr. Rodriguez is making good overall progress with physical, occupational, and speech therapy. He of course is a renal patient and is on hemodialysis 3 times weekly, followed by the renal service. Assessment: Mr. Rodriguez is a 68-year-old patient in rehabilitation unit with congestive heart failu re related myopathy. He has end-stage renal disease, on hemodialysis and coronary artery disease, ch ronic congestive heart failure, decreased mobility, decreased physical functioning, diabetes mellitus , hypertension, peripheral neuropathy, and had myocardial infarction. Plan: 1.We will continue with physical, occupational, and speech therapy 3.5 hours, 5 of 7 days. 2.Continue hemodialysis per protocol. 3.Continue with Brilinta for stroke risk reduction, Senokot for constipation, Ensure for malnutritio n, potassium replacement for hypokalemia, Protonix for reflux. It is noted midodrine 5 mg daily for pressure support, melatonin for insomnia, Semglee insulin for diabetes mellitus, Coreg for hypertensi on, and has calcium replacement on board, Lipitor for dyslipidemia, aspirin for stroke risk reduction . Comorbidities That Are Impacting Rehabilitation: He does have multiple comorbid conditions, however, they are negatively impacting his rehabilitation he has end-stage renal disease and his therapy sess ions are worked around the dialysis schedule. AARON/QUIANA Voice ID: [id number] Report ID: [id number]
[2024-02-02] MEDS: PANTOPRAZOLE 40MG TABLET PO SCH (06:59)
[2024-02-02] MEDS: PIOGLITAZONE 15 MG TAB PO SCH (08:00)
[2024-02-02 10:52] LABS: Absolute Basophils 0.1 K/uL (0-0.5); Absolute Eosinophils 0.1 K/uL (0-0.5); Absolute Lymphocytes (CBC) 0.6 K/uL (0.7-4.9); Absolute Monocytes 0.8 K/uL (0.1-1.3); Absolute Neutrophil 13.4 K/uL (1.8-8.0); Basophils % 0.5 % (0-1.3); Eosinophils % 0.4 % (0-4.4); Hematocrit 35.3 % (39.6-49.0); Hemoglobin 11.6 g/dL (13.6-17.9); Lymphocytes % 3.8 % (15.3-44.8); MCH 30.6 pg (27.0-35.0); MPV 8.6 fL (7.6-11.3); Monocytes % 5.1 % (3.3-12.3); Neutrophils % 90.2 % (41.7-73.7); Platelets 211 thou/uL (152-406); Red Cell Distribution Width 14.5 % (12.1-15.2)
[2024-02-02] MEDS: MIDODRINE HCL 5 MG TABLET PO ONE (11:15)
--- NOTE | 2024-02-02 11:18 | P.HP ---
Certification for Inpatient Patient admitted to: Inpatient With expected LOS: >2 Midnights Patient will require the following post-hospital care: Rehabilitation Practitioner: I am a practitioner with admitting privileges, knowledge of patient current condition, hospital course, and medical plan of care. Services: Services provided to patient in accordance with Admission requirements found in Title 42 Section 412.3 of the Code of Federal Regulations Patient History Date of Service: 02/02/24 History of Present Illness: Mr. Friedman is a 68-year-old gentleman with a recent hospitalization for cardiorenal syndrome with ARLENE. During his hospitalization he underwent left cardiac cath with PCI per Dr. Reyes, hemodialysis was initiated per Dr. Murdock. He had a prolonged hospital course secondary to difficulty managing electrolyte/fluid balances with resultant nausea and diarrhea. C. difficile was negative. The patient did slowly improve and was discharged to inpatient rehab 2 to 3 days ago. A rapid response was called on the fifth floor, when I entered the room Mr. Ashford was supine, hypotensive, and poorly responsive. PT had placed teds and placed patient supine prior to my arrival and his blood pressure responded from a systolic in the 70s to systolic in the 90s. Sternal rub resulted in Mr. Friedman arousing enough to carry on conversation, he spoke with his , admits to nausea, generalized weakness, and mild dizziness. Dr. Dee was contacted per patient's primary nurse. The patient was given midodrine around 7 AM and this dose will be repeated. Peripheral IV was started in the right wrist x 1 attempt and patient will be transferred to inpatient unit when bed available. Currently his pressure is 98/58, heart rate 74, pulse ox 94 on room air, responsive to verbal stimuli. Dr. Dee at bedside Allergies No Known Allergies Allergy (Verified 02/01/24 11:19) Home Medications: Cetirizine HCl 1 tab PO DAILY PRN 01/30/23 Dapagliflozin Propanediol [Farxiga] 1 tab PO DAILY 01/30/23 Hydralazine [Apresoline*] 1 tab PO BID 01/30/23 Insulin Glargine,Hum.rec.anlog [Toujuly Eid Solostar] 12 unit SQ BEDTIME 01/30/23 Pioglitazone HCl 1 tab PO DAILY 01/30/23 Potassium Chloride [Klor-Con 10] 1 tab PO DAILY 01/30/23 Amlodipine [Norvasc*] 5 mg PO DAILY tab 01/22/24 Atorvastatin Calcium [Lipitor] 40 mg PO BEDTIME 30 Days #30 tab 01/22/24 Ticagrelor [Brilinta*] 90 mg PO BID 30 Days #60 mg 01/22/24 carvediloL [Coreg] 25 mg PO BID 30 Days #60 tab 01/23/24 Aspirin 81 mg PO DAILY 02/01/24 Calcitrol [Rocaltrol*] 1 tab PO Q48H 02/01/24 Gabapentin [Neurontin*] 100 mg PO BID 02/01/24 Midodrine HCl [Proamatine*] 5 mg PO DAILY 02/01/24 - Past Medical/Surgical History Has patient received pneumonia vaccine in the past: No Diabetic: Yes -: HTN -: DM -: sleep apnea -: CHF -: CKD -: appendectomy -: subtotal cholecystectomy november 05, 2019 -: ERCP november 06, 2019 Psychosocial/ Personal History: Patient lives at home with his family. - Family History Father -: Hypertension, Diabetes - Social History Smoking Status: Unknown if ever smoked Alcohol use: No CD- Drugs: No Caffeine use: Yes Place of Residence: Home Review of Systems 10-point ROS is otherwise unremarkable General: Weakness, Malaise Gastrointestinal: Nausea Neurological: Weakness, As per HPI Physical Examination - Vital Signs Temperature: 97 F Pulse: 70 Respirations: 16 Pulse Ox (%): 97 - Physical Exam General: Cooperative, Moderate distress, Obese HEENT: Atraumatic, Normocephalic Neck: Supple Respiratory: Normal air movement Cardiovascular: No edema, Regular rate/rhythm, Normal S1 S2 Capillary refill: <2 Seconds Gastrointestinal: Soft and benign, Other (Hiccoughs) Musculoskeletal: No clubbing Integumentary: No rashes, Other (Pallor) Neurological: Normal speech, Normal affect, Other (Follows commands but generally weak) Lymphatics: No axilla or inguinal lymphadenopathy External genitalia: Deferred Rectal: Deferred - Studies Laboratory Data (last 24 hrs) 02/02/24 10:43 WBC 14.80 H Hgb 11.6 L Hct 35.3 L Plt Count 211 Assessment and Plan - Plan Orthostatic hypotension with syncope Teds PT/OT in bed IV initiated and labs sent Midodrine 5 mg p.o. 3 times daily Midodrine 5 mg p.o. now Neurochecks every 4h Consult Dr. Dee Cardiorenal syndrome with new onset hemodialysis Recent PCI Continue dialysis per Dr. Murdock Continue meds per cardiology, holding parameters for hypotension Diabetes Glucose monitor SSI moderate coverage VTE/GI prophylaxis - Advance Directives Does patient have a Living Will: No Does patient have a Durable POA for Healthcare: No
[2024-02-02 11:20] LABS: Anion Gap 18.4 mEq/L (5.0-15.0); Potassium 4.4 mEq/L (3.5-5.1)
[2024-02-02 12:05] VITALS: O2SAT 97
--- NOTE | 2024-02-02 13:09 | RAD REPORT ---
EXAM DESCRIPTION: CT - Ct Stroke Brain Wo Cont - 02/02/2024 1:03 pm CLINICAL HISTORY: Intracranial Bleeding Headache, drowsiness, fall COMPARISON: Head Brain Wo Cont dated 07/11/2022; Ct Stroke Brain Wo Cont dated 04/14/2019 TECHNIQUE: All CT scans are performed using dose optimization technique as appropriate and may inclu de automated exposure control or mA/KV adjustment according to patient size. FINDINGS: No intracranial hemorrhage, hydrocephalus or extra-axial fluid collection.Small area of gl iosis is seen right occipital region.No areas of brain edema or evidence of midline shift. The paranasal sinuses and mastoids are clear. The calvarium is intact. IMPRESSION: No acute intracranial abnormality.
[2024-02-02 13:14] VITALS: BP 60/47; TEMP 97.5
[2024-02-02 13:24] LABS: Absolute Basophils 0.1 K/uL (0-0.5); Absolute Eosinophils 0.1 K/uL (0-0.5); Absolute Lymphocytes (CBC) 0.6 K/uL (0.7-4.9); Absolute Monocytes 0.7 K/uL (0.1-1.3); Basophils % 0.4 % (0-1.3); Eosinophils % 0.4 % (0-4.4); Hematocrit 34.8 % (39.6-49.0); Hemoglobin 11.2 g/dL (13.6-17.9); Lymphocytes % 4.2 % (15.3-44.8); MCH 30.1 pg (27.0-35.0); MCHC 32.2 g/dL (32.0-36.0); MCV 93.6 fL (80-100); MPV 9.4 fL (7.6-11.3); Monocytes % 4.9 % (3.3-12.3); Neutrophils % 90.1 % (41.7-73.7); Platelets 200 thou/uL (152-406); RBC Red Blood Cell Count 3.72 M/uL (4.33-5.43); Red Cell Distribution Width 14.2 % (12.1-15.2)
[2024-02-02 13:28] LABS: PT Prothrombin Time 12.7 SECONDS (9.4-12.5); PTT, Activated Partial Thromb 29.5 SECONDS (24.3-36.9); Protime INR 1.14
[2024-02-02 13:33] LABS: Anion Gap 17.6 mEq/L (5.0-15.0); Potassium 4.6 mEq/L (3.5-5.1)
--- NOTE | 2024-02-02 14:30 | RAD REPORT ---
EXAM DESCRIPTION: RAD - Chest Single View - 02/02/2024 2:23 pm CLINICAL HISTORY: code stroke Chest pain. COMPARISON: Chest Single View dated 01/31/2024; Abdomen 1 View (KUB) dated 01/31/2024; Chest Single Vi ew dated 01/26/2024; Chest Single View dated 01/18/2024 FINDINGS: Portable technique limits examination quality. The lungs are grossly clear. The heart is mildly prominent in size. No displaced fractures.Right-side d venous catheter tip in the SVC. IMPRESSION: No acute intrathoracic process suspected.
[2024-02-02] MEDS ORDERED: carvediloL 6.25 MG TAB PO SCH (18:00)
[2024-02-02] MEDS ORDERED: carvediloL 12.5 MG TAB PO SCH (18:00)
--- NOTE | 2024-02-06 12:50 | EKG ---
Test Date: 2024-02-02 Test Time: 14:31:55 Ornamental Metal Worker: MEASUREMENT RESULTS: Intervals: Rate: 69 WV: QRSD: 178 QT: 466 QTc: 499 Weir: P: -77 WV: QRS: -65 T: 3 INTERPRETIVE STATEMENTS: Atrial flutter with 4:1 AV conduction Left axis deviation Left ventricular hypertrophy with QRS widening Possible Lateral infarct, age undetermined Inferior infarct, age undetermined Abnormal ECG Compared to ECG 01/28/2024 21:13:28 Sinus rhythm no longer present Short WV interval no longer present Early repolarization no longer present Myocardial infarct finding still present Electronically Signed On 02-06-24 12:43:12 CDT by Cristo Reyes
== END 2024-02-02 13:59 | disposition short-term general hospital (02) | DRG 91 ==
LOC: 5TH 12:20 → 2ND 02-02 11:52 → 3RD-ICU 02-02 13:16 → 5TH 02-02 13:55
PROVIDERS: ADMIT Psychiatry & Neurology Neurology with Special Qualifications in Child Neurology; ATTEND Psychiatry & Neurology Neurology with Special Qualifications in Child Neurology
PROC: 5A1D90Z Performance of Urinary Filtration, Continuous, Greater than 18 hours Per Day (ICD-10-PCS; principal; 2024-02-01)
DX: G72.89 Other specified myopathies (principal); N18.6 End stage renal disease; I13.2 Hypertensive heart and chronic kidney disease with heart failure and with stage 5 chronic kidney disease, or end stage renal disease; E87.1 Hypo-osmolality and hyponatremia; E87.20 Acidosis, unspecified; N25.81 Secondary hyperparathyroidism of renal origin; E11.22 Type 2 diabetes mellitus with diabetic chronic kidney disease; I50.9 Heart failure, unspecified; G47.33 Obstructive sleep apnea (adult) (pediatric); E78.5 Hyperlipidemia, unspecified; D63.1 Anemia in chronic kidney disease; G62.9 Polyneuropathy, unspecified; G47.00 Insomnia, unspecified; E11.319 Type 2 diabetes mellitus with unspecified diabetic retinopathy without macular edema; I25.10 Atherosclerotic heart disease of native coronary artery without angina pectoris; I25.2 Old myocardial infarction; Z99.2 Dependence on renal dialysis
CPT/HCPCS: 36415; 36600; 70450; 71045; 74018; 80048; 82040; 82140; 82805; 82947; 83735; 83880; 84134; 84443; 85025; 85610; 85730; 87340; 90935; 92523; 93005; 94010; 97110; 97116; 97129; 97163; 97165; 97530; 97542; J1644; J3420; Q0162

== ENCOUNTER 2024-02-02 14:05 | Inpatient (IN) | payer OTHER ==
[2024-02-02] MEDS: PROMETHAZINE INJ 25 MG/ML AMP IV PRN (14:54)
[2024-02-02] MEDS ORDERED: D10W 125 ML IV PRN (15:01)
[2024-02-02] MEDS ORDERED: GLUCAGON 1 MG/VIAL IM PRN (15:01)
--- NOTE | 2024-02-02 15:04 | P.HP ---
Date of Service: 02/02/24 atient Name: WISAM ABBASI [facility] Record Number: [id number] Date of : 1955 Patient Status: Inpatient Attending Provider: Aiden Dee Date: 02/02/24 11:12 Initialization Date: 02/02/24 11:12 Certification for Inpatient Patient admitted to: Inpatient With expected LOS: >2 Midnights Patient will require the following post-hospital care: Rehabilitation Practitioner: I am a practitioner with admitting privileges, knowledge of patient current condition, hospital course, and medical plan of care. Services: Services provided to patient in accordance with Admission requirements found in Title 42 Section 412.3 of the Code of Federal Regulations Patient History Date of Service: 02/02/24 History of Present Illness: Mr. Friedman is a 68-year-old gentleman with a recent hospitalization for cardiorenal syndrome with ARLENE. During his hospitalization he underwent left c ardiac cath with PCI per Dr. Reyes, hemodialysis was initiated per Dr. Murdock. He had a prolonged hospital course secondary to difficulty managing electrolyte/fluid balances with resultant nausea and diarrhea. C. difficile was negative. The patient did slowly improve and was discharged to inpatient rehab 2 to 3 days ago. A rapid response was called on the fifth floor, when I entered the room Mr. Ashford was supine, hypotensive, and poorly responsive. PT had placed teds and placed patient supine prior to my arrival and his blood pressure responded from a systolic in the 70s to systolic in the 90s. Sternal rub resulted in Mr. Friedman arousing enough to carry on conversation, he spoke with his , admits to nausea, generalized weakness, and mild dizziness. Dr. Dee was contacted per patient's primary nurse. The patient was given midodrine around 7 AM and this dose will be repeated. Peripheral IV was started in the right wrist x 1 attempt and patient will be transferred to inpatient unit when bed available. Currently his pressure is 98/58, heart rate 74, pulse ox 94 on room air, responsive to verbal stimuli. Dr. Dee at bedside Allergies No Known Allergies Allergy (Verified 02/01/24 11:19) Home Medications: Cetirizine HCl 1 tab PO DAILY PRN 01/30/23 Dapagliflozin Propanediol [Farxiga] 1 tab PO DAILY 01/30/23 Hydralazine [Apresoline*] 1 tab PO BID 01/30/23 Insulin Glargine,Hum.rec.anlog [Juliane Trejoalexisbillie] 12 unit SQ BEDTIME 01/30/23 Pioglitazone HCl 1 tab PO DAILY 01/30/23 Potassium Chloride [Klor-Con 10] 1 tab PO DAILY 01/30/23 Amlodipine [Norvasc*] 5 mg PO DAILY tab 01/22/24 Atorvastatin Calcium [Lipitor] 40 mg PO BEDTIME 30 Days #30 tab 01/22/24 Ticagrelor [Brilinta*] 90 mg PO BID 30 Days #60 mg 01/22/24 carvediloL [Coreg] 25 mg PO BID 30 Days #60 tab 01/23/24 Aspirin 81 mg PO DAILY 02/01/24 Calcitrol [Rocaltrol*] 1 tab PO Q48H 02/01/24 Gabapentin [Neurontin*] 100 mg PO BID 02/01/24 Midodrine HCl [Proamatine*] 5 mg PO DAILY 02/01/24 - Past Medical/Surgical History Has patient received pneumonia vaccine in the past: No Diabetic: Yes -: HTN -: DM -: sleep apnea -: CHF -: CKD -: appendectomy -: subtotal cholecystectomy november 05, 2019 -: ERCP november 06, 2019 Psychosocial/ Personal History: Patient lives at home with his family. - Family History Father -: Hypertension, Diabetes - Social History Smoking Status: Unknown if ever smoked Alcohol use: No CD- Drugs: No Caffeine use: Yes Place of Residence: Home Review of Systems 10-point ROS is otherwise unremarkable General: Weakness, Malaise Gastrointestinal: Nausea Neurological: Weakness, As per HPI Physical Examination - Vital Signs Temperature: 97 F Pulse: 70 Respirations: 16 Pulse Ox (%): 97 - Physical Exam General: Cooperative, Moderate distress, Obese HEENT: Atraumatic, Normocephalic Neck: Supple Respiratory: Normal air movement Cardiovascular: No edema, Regular rate/rhythm, Normal S1 S2 Capillary refill: <2 Seconds Gastrointestinal: Soft and benign, Other (Hiccoughs) Musculoskeletal: No clubbing Integumentary: No rashes, Other (Pallor) Neurological: Normal speech, Normal affect, Other (Follows commands but generally weak) Lymphatics: No axilla or inguinal lymphadenopathy External genitalia: Deferred Rectal: Deferred - Studies Laboratory Data (last 24 hrs) 02/02/24 10:43 WBC 14.80 H Hgb 11.6 L Hct 35.3 L Plt Count 211 Assessment and Plan - Plan Orthostatic hypotension with syncope Teds PT/OT in bed IV initiated and labs sent Midodrine 5 mg p.o. 3 times daily Midodrine 5 mg p.o. now Neurochecks every 4h Consult Dr. Dee Cardiorenal syndrome with new onset hemodialysis Recent PCI Continue dialysis per Dr. Murdock Continue meds per cardiology, holding parameters for hypotension Diabetes Glucose monitor SSI moderate coverage VTE/GI prophylaxis - Advance Directives Does patient have a Living Will: No Does patient have a Durable POA for Healthcare: No <Ayesha Nguyen - Last Filed: 02/02/24 15:27> Pt seen and examined. I agree with the note by the MERCHANDISE ASSOCIATE. Pt is a 68yo male with past medical history of DM II, CKD stage 5 / ESRD who was sent from the rehab to ICU due to orthostatic hypotension. Of note, was recently treated for cardiorenal syndrome with ARLENE, fluid overload and started on dialysis before we sent him to inpatient rehab. Rapid response was called this am because pt found unresponsive and hypotensive. Systolic BP was 70s and we gave him midodrine and transferred to the ICU. At bedside, pt complained of feeling lightheaded. A/P: Orthostatic hypotension: Will continue midodrine and neurochecks. Will check orthostatic vital signs. CKD stage 5/ ESRD: Will continue dialysis. Consulted Nephrology. DM II: continue acchcuek, SSI and ADA diet. DVT ppx: SCD Code: full <LocoErichflores C - Last Filed: 02/02/24 16:41>
[2024-02-02] MEDS: NOREPINEPHRINE BITARTRATE/D5W 4 MG/250 ML KIT IV SCH (15:06)
[2024-02-02] MEDS: PNEUMOCOCCAL VACCINE 0.5 ML IMVAC ONE (16:00)
[2024-02-02] MEDS: INSULIN REGULAR (HUMAN) 100 UNIT/ML SQ SCH (16:30)
[2024-02-02 16:59] LABS: Magnesium 2.3 mg/dL (1.6-2.4); Phosphorus 9.3 mg/dL (2.5-4.9)
[2024-02-02 17:02] LABS: Troponin High Sensitivity 265.7 pg/mL (<58.9)
[2024-02-02] MEDS: carvediloL 25 MG TAB PO SCH (17:36)
[2024-02-02] MEDS: ALBUMIN HUMAN 25% 100 ML IV ONE (19:04)
[2024-02-02] MEDS: TICAGRELOR 90 MG TABLET PO SCH (20:13)
[2024-02-02] MEDS: ATORVASTATIN 40 MG TAB PO SCH (20:19)
[2024-02-03 05:29] LABS: Absolute Basophils 0.1 K/uL (0-0.5); Absolute Eosinophils 0.1 K/uL (0-0.5); Absolute Lymphocytes (CBC) 0.9 K/uL (0.7-4.9); Absolute Monocytes 0.8 K/uL (0.1-1.3); Absolute Neutrophil 11.6 K/uL (1.8-8.0); Basophils % 0.6 % (0-1.3); Eosinophils % 0.9 % (0-4.4); Hematocrit 32.3 % (39.6-49.0); Hemoglobin 10.8 g/dL (13.6-17.9); Lymphocytes % 6.6 % (15.3-44.8); MCH 30.9 pg (27.0-35.0); MCHC 33.5 g/dL (32.0-36.0); MCV 92.4 fL (80-100); MPV 9.2 fL (7.6-11.3); Monocytes % 6.2 % (3.3-12.3); Neutrophils % 85.7 % (41.7-73.7); Platelets 195 thou/uL (152-406)
[2024-02-03 05:56] LABS: Albumin 3.7 g/dL (3.4-5.0); Anion Gap 21.4 mEq/L (5.0-15.0); Ferritin 867.1 ng/mL (26-388); Globulin 3.8 g/dL (2.3-3.5); Magnesium 2.3 mg/dL (1.6-2.4); Potassium 4.4 mEq/L (3.5-5.1); Protein, Total 7.5 g/dL (6.4-8.2)
[2024-02-03 05:58] LABS: Phosphorus 9.7 mg/dL (2.5-4.9)
[2024-02-03 07:23] LABS: Blood Morphology Comment NOT SEEN (NOT SEEN); Differential Total Cells Count 100; Lymphocytes 8 % (15-42); Monocytes 6 % (0-10); Platelet Estimate ADEQ; Segmented Neutrophils 86 % (40-80)
[2024-02-03] MEDS: PANTOPRAZOLE 40 MG INJ IVP SCH (09:00)
[2024-02-03] MEDS: ASPIRIN EC 81 MG TAB PO SCH (09:00)
[2024-02-03] MEDS: SEVELAMER CARBONATE 800 MG TABLET PO SCH (09:00)
--- NOTE | 2024-02-03 09:19 | P.PN ---
Subjective Date of Service: 02/03/24 Subjective: No new changes (BP stable, no levophed presently but pt scheduled for dialysis today) <Ayesha Nguyen - Last Filed: 02/03/24 09:20> Date of Service: 02/03/24 <Dalila Adan Deepti - Last Filed: 02/03/24 09:55> Review of Systems 10-point ROS is otherwise unremarkable General: Weakness, Malaise Genitourinary: Other (tenderness at femoral triple lumen site. Area no longer bleeding. Lines flush easily. site healthy) <Ayesha Nguyen - Last Filed: 02/03/24 09:20> Physical Examination - Vital Signs Temperature: 96.9 F Blood Pressure: 113/57 Pulse: 69 Respirations: 17 Pulse Ox (%): 97 - Physical Exam General: Other (Sleeping with respirations even and unlabored, no distress) HEENT: Atraumatic, Normocephalic Neck: Supple Respiratory: Normal air movement Cardiovascular: Normal pulses, Regular rate/rhythm Capillary refill: <2 Seconds Gastrointestinal: Soft and benign Musculoskeletal: No clubbing Integumentary: Other (Scattered areas of ecchymosis) Neurological: Normal speech, Normal tone, Normal affect Lymphatics: No axilla or inguinal lymphadenopathy External genitalia: Deferred Rectal: Deferred - Studies Laboratory Data (last 24 hrs) 02/03/24 02/03/24 02/02/24 05:02 05:02 15:53 WBC 13.50 H Hgb 10.8 L Hct 32.3 L Plt Count 195 Sodium 132 L Potassium 4.4 BUN 91 H Creatinine 12.50 H Glucose 117 H Phosphorus 9.7 H* 9.3 H* Magnesium 2.3 2.3 Total Bilirubin 1.0 AST 24 ALT 39 Alkaline Phosphatase 112 Microbiology Data (last 24 hrs): 02/02/24 16:05 Blood - Blood Anaerobic Blood Culture - Final <Ayesha Nguyen - Last Filed: 02/03/24 09:20> - Studies Laboratory Data (last 24 hrs) 02/03/24 02/03/24 02/02/24 05:02 05:02 15:53 WBC 13.50 H Hgb 10.8 L Hct 32.3 L Plt Count 195 Sodium 132 L Potassium 4.4 BUN 91 H Creatinine 12.50 H Glucose 117 H Phosphorus 9.7 H* 9.3 H* Magnesium 2.3 2.3 Total Bilirubin 1.0 AST 24 ALT 39 Alkaline Phosphatase 112 Microbiology Data (last 24 hrs): 02/02/24 16:05 Blood - Blood Anaerobic Blood Culture - Final <Dalila Adan - Last Filed: 02/03/24 09:55> Assessment And Plan - Plan - Plan Orthostatic hypotension with syncope Teds PT/OT in bed IV initiated and labs sent Midodrine 5 mg p.o. 3 times daily Midodrine 5 mg p.o. now Neurochecks every 4h Consult Dr. Dee Yesterday after patient moved to second floor, he was noted to be hypotensive at 60/40. A triple-lumen femoral line was started, patient had CT head which was negative for bleed, Levophed started in ICU. Sandbag applied to left groin secondary to arterial puncture prior to femoral vein placement. No further bleeding from site. Cardiorenal syndrome with new onset hemodialysis Recent PCI Continue dialysis per Dr. Murdock Continue meds per cardiology, holding parameters for hypotension, consult cardiology Patient's labs returned with hyperphosphatemia and elevated troponin, patient currently on Brilinta 80 mg p.o. twice daily, aspirin 81 mg p.o. daily, Coreg held secondary to hypotension. Plan for dialysis today which may require levophed reinitiation. Diabetes Glucose monitor SSI moderate coverage ADA diet VTE/GI prophylaxis - Advance Directives Does patient have a Living Will: No Does patient have a Durable POA for Healthcare: No Time Spent Managing PTS Care (In Minutes): 25 <Ayesha Nguyen - Last Filed: 02/03/24 09:20> - Plan Pt seen and examined. I agree with the note by the MODEL MAKER APPRENTICE. Pt's BP has improved. Will continue midodrine and dialysis per Schedule. . Monitor electrolytes. Na is 132. <Dalila dAan - Last Filed: 02/03/24 09:55>
[2024-02-03] MEDS: ALBUMIN HUMAN 25% 100 ML IV ONE (09:52)
[2024-02-03] MEDS ORDERED: NOREPINEPHRINE BITARTRATE/D5W 4 MG/250 ML KIT IV SCH (11:30)
--- NOTE | 2024-02-03 13:02 | P.CNS ---
Date of Consult: 02/03/24 Chief Complaint: NSTEMI History of Present Illness: Patient is admitted from Rehab unit for syncope, while he was trying to do physical therapy, rapid response was called and patient was found to be hypotensive but no arrhythmia was seen, patient had recent coronary angiogram during this hospital admission with PCI to OM2 for unstable angina, also was getting diursed for Diastolic heart failure and elevated filling pressures, that led to worsening ARLENE and patient ended up needed dialysis, upon interview today, patient denies having any chest pain, breathing comfortably, no arrhythmia seen on tele, he was getting dialysis. Allergies No Known Allergies Allergy (Verified 02/01/24 11:19) Home medications list reviewed: Yes Home Medications: RX: Cetirizine HCl 1 tab PO DAILY PRN 01/30/23 RX: Insulin Glargine,Hum.rec.anlog [Juliane Lancaster] 12 unit SQ BEDTIME 01/30/23 RX: Potassium Chloride [Klor-Con 10] 1 tab PO DAILY 01/30/23 RX: Atorvastatin Calcium [Lipitor] 40 mg PO BEDTIME 30 Days #30 tab 01/22/24 RX: Ticagrelor [Brilinta*] 90 mg PO BID 30 Days #60 mg 01/22/24 Calcitrol [Rocaltrol*] 1 tab PO Q48H 02/01/24 RX: Aspirin 81 mg PO DAILY 02/01/24 RX: Midodrine HCl [Proamatine*] 5 mg PO DAILY 02/01/24 Acetaminophen [Tylenol Extra Strength] 500 mg PO Q6HR PRN 02/02/24 Atorvastatin Calcium [Lipitor] 40 mg PO BEDTIME 02/02/24 Docusate/Senna [Senokot-S*] 2 tab PO BEDTIME PRN 02/02/24 Ondansetron [Zofran (Odt)*] 4 mg PO Q4HP PRN 02/02/24 RX: Melatonin [Melatonin*] 3 mg PO BEDTIME PRN 02/02/24 carvediloL [Coreg] 6.25 mg PO BID 02/02/24 - Past Medical/Surgical History Diabetic: Yes -: HTN -: DM -: sleep apnea -: CHF -: CKD -: appendectomy -: subtotal cholecystectomy november 05, 2019 -: ERCP november 06, 2019 Psychosocial/ Personal History: Patient lives at home with his family. - Family History Father Medical History: Hypertension, Diabetes - Social History Alcohol use: No CD- Drugs: No Caffeine use: No Review of Systems 10-point ROS is otherwise unremarkable Physical Examination Temp Pulse Resp BP Pulse Ox 97.5 F 68 14 136/80 99 02/03/24 12:00 02/03/24 12:15 02/03/24 12:15 02/03/24 12:15 02/03/24 12:15 General: Alert, In no apparent distress HEENT: Atraumatic, PERRLA, Mucous membr. moist/pink, EOMI, Sclerae nonicteric Neck: Supple, 2+ carotid pulse no bruit, No LAD, Without JVD or thyroid abnormality Respiratory: Clear to auscultation bilaterally, Normal air movement Cardiovascular: Regular rate/rhythm, Normal S1 S2 Gastrointestinal: Normal bowel sounds, No tenderness Musculoskeletal: No tenderness Integumentary: No rashes Neurological: Normal gait, Normal speech, Normal tone, Normal affect Lymphatics: No axilla or inguinal lymphadenopathy Laboratory Data (last 24 hrs) 02/03/24 02/03/24 02/02/24 05:02 05:02 15:53 WBC 13.50 H Hgb 10.8 L Hct 32.3 L Plt Count 195 Sodium 132 L Potassium 4.4 BUN 91 H Creatinine 12.50 H Glucose 117 H Phosphorus 9.7 H* 9.3 H* Magnesium 2.3 2.3 Total Bilirubin 1.0 AST 24 ALT 39 Alkaline Phosphatase 112 - Problems (1) NSTEMI (non-ST elevated myocardial infarction) Current Visit: Yes Status: Acute Plan: patient denies having any chest pain, no arrhythmia seen, patient coronary angiogram shown mild to moderate mid LAD disease, significant OM2 s/p PCI and mild RCA disease - Troponin leak most likely secondary to ESRD, recent Hypotensive episode. - Continue to trend cardiac enzymes until peak and down trending. - switch Brilinta to Plavix 75 mg daily - continue ASA 81 mg daily (2) Chronic diastolic heart failure Current Visit: Yes Status: Acute Plan: volume adjusement through dialysis lower Coreg to 6.25 mg po BID (used to be on 25 mg BID) (3) Atrial fibrillation Current Visit: Yes Status: Acute Plan: Patient need to be started on anticoagulation Eliquis 5 mg po BID
[2024-02-03] MEDS: CALCITROL 0.25 MCG CAP PO SCH (16:17)
--- NOTE | 2024-02-03 21:18 | PN ---
Date of Progress Note: 02/03/2024 Chief Complaint: Acute on chronic kidney injury, hypotension, syncope. Subjective: The patient was transferred from rehab floor to ICU after he was found to have episodes of severe hypotension and was admitted to ICU, started on Levophed drip. The patient had a CT scan o rdered to rule out bleeding. He was recently started on anticoagulation. Blood pressure in ICU was 98/58 prior to the he has multitude of problems. He has history of diabetes mellitus, hyp ertension, diabetic kidney disease, hypertensive heart and kidney disease, coronary artery disease, u nderwent PCI and was on anticoagulation afterwards. CT scan was negative or ICH. The patient was in stable condition in ICU and he was on low dose of Levophed. Blood pressure improved and patient den ies chest pain. The patient had a troponin level evaluated and it was found elevated. The patient w as consulted by Cardiology. The patient is a 68-year-old man with recent hospitalization for cardior enal syndrome with acute kidney injury on chronic kidney disease, advanced chronic kidney disease, di abetic kidney disease with severe proteinuria. During hospitalization, he had diarrhea, nausea, and vomiting. C difficile was negative. The patient required fluid balance. IV fluids and electrolytes derangement. Renal function has not improved and the patient was started on hemodialysis. The latasha ent currently is on midodrine and Levophed. Blood pressure is stable. He is at this baseline mental status. Denies complaints. Review of Systems: Denies chest pain, palpitation. Denies fevers, chills, headache, vision changes. Past Medical History: Diabetes mellitus, hypertension, sleep apnea, congestive heart failure, chroni c kidney disease, appendectomy, subtotal cholecystectomy on November 05, 2019, ERCP November 2019. Family History: Father, hypertension, diabetes. Social History: Denies tobacco, denies alcohol. Physical Examination: General: The patient is awake, alert. Follows commands. HEENT: Eyes anicteric. Sclerae EOMI. Ears, Nose, mouth, and Throat, oral mucosa moist. No pallor. Neck: Supple. No bruits. Lungs: Few rhonchi and crackles at bases. Heart: S1, S2. Abdomen: Obese, soft, nontender. Extremities: Edema present in both ankles. Laboratory Data: Hemoglobin 11.6, WBC 14.8, platelet count 211. Impression And Plan: 1.The patient was transferred to ICU when he developed hypotension with syncope. The patient has or thostatic hypotension and IV pressor with Levophed was initiated. Midodrine was started with 5 mg 3 times per day and neurology was consulted. Neuro checks were performed. The patient is dialysis dep endent and he will have dialysis as soon as possible after blood pressure is more stable. 2.History of coronary artery disease, re-evaluate troponin. 3.Diabetes mellitus. Continue insulin. 4.Anemia. Hemoglobin level is satisfactory. No need to start MEGHNA. 5.Orthostatic hypotension, resolving. Continue IV albumin as needed for orthostatic hypotension whe n patient is in ICU and plan is to wean off Levophed gradually. 6.Cardiorenal syndrome with acute kidney injury, fluid overload. The patient will have dialysis and patient will require ultrafiltration for volume control. EB/MODL Voice ID: [id number] Report ID: [id number]
[2024-02-03] MEDS: NACHLORIDE 0.45% 0 ML IV ONE (22:12)
[2024-02-04 05:23] VITALS: BMI 37.8
[2024-02-04 05:42] LABS: Absolute Basophils 0.1 K/uL (0-0.5); Absolute Eosinophils 0.1 K/uL (0-0.5); Absolute Lymphocytes (CBC) 0.8 K/uL (0.7-4.9); Absolute Neutrophil 10.1 K/uL (1.8-8.0); Basophils % 0.4 % (0-1.3); Hematocrit 34.8 % (39.6-49.0); Hemoglobin 11.6 g/dL (13.6-17.9); Lymphocytes % 6.5 % (15.3-44.8); MCH 30.6 pg (27.0-35.0); MCHC 33.3 g/dL (32.0-36.0); MCV 92.1 fL (80-100); MPV 9.6 fL (7.6-11.3); Monocytes % 8.1 % (3.3-12.3); Nucleated Red Blood Cells % 0.1 % (0-0); Platelets 184 thou/uL (152-406); RBC Red Blood Cell Count 3.78 M/uL (4.33-5.43); Red Cell Distribution Width 14.2 % (12.1-15.2)
[2024-02-04 06:02] LABS: Albumin 4.2 g/dL (3.4-5.0); Bilirubin Total 1.2 mg/dL (0.2-1.0); Globulin 4.3 g/dL (2.3-3.5); Magnesium 2.4 mg/dL (1.6-2.4); Phosphorus 7.9 mg/dL (2.5-4.9); Protein, Total 8.5 g/dL (6.4-8.2)
[2024-02-04] MEDS: APIXABAN 5 MG TABLET PO SCH (08:07)
[2024-02-04] MEDS: CITALOPRAM 10 MG TABLET PO SCH (08:08)
[2024-02-04] MEDS: CLOPIDOGREL 75 MG TABLET PO SCH (08:08)
[2024-02-04] MEDS: carvediloL 6.25 MG TAB PO SCH (08:09)
--- NOTE | 2024-02-04 08:13 | P.PN ---
Subjective Date of Service: 02/04/24 Chief Complaint: NSTEMI Subjective: Improving (pt weaned post dialysis off of levophed, SBP 115 on exam. Pt c/o insomnia, depression.) <Ayesha Nguyenlen - Last Filed: 02/04/24 08:05> Date of Service: 02/04/24 <Dalila Adan Deepti - Last Filed: 02/04/24 10:07> Review of Systems 10-point ROS is otherwise unremarkable Integumentary: Other (soreness at dialysis and central line sites) Other: insomnia and depression <Ayesha Nguyenlen - Last Filed: 02/04/24 08:05> Physical Examination - Vital Signs Temperature: 96.8 F Blood Pressure: 129/64 Pulse: 73 Respirations: 13 Pulse Ox (%): 98 - Physical Exam General: Alert, In no apparent distress, Oriented x3, Obese HEENT: Atraumatic, Normocephalic Neck: Supple Respiratory: Normal air movement Cardiovascular: Regular rate/rhythm, Normal S1 S2, Edema (lower extremities) Capillary refill: <2 Seconds Gastrointestinal: Normal bowel sounds Musculoskeletal: No clubbing Integumentary: Other (scattered ecchymosis at sq injection sites) Neurological: Normal speech, Normal tone, Normal affect Lymphatics: No axilla or inguinal lymphadenopathy External genitalia: Deferred Rectal: Deferred Other Physical/Emotional Findings: pt is sedate, states he feels down, wants to sleep but cannot. States post intermediate, his sleep schedule has been poor. Prolonged hospitalization has brought pt down - Studies Laboratory Data (last 24 hrs) 02/04/24 02/04/24 05:01 05:01 WBC 12.10 H Hgb 11.6 L Hct 34.8 L Plt Count 184 Sodium 132 L Potassium 4.0 BUN 73 H Creatinine 10.50 H Glucose 114 H Phosphorus 7.9 H Magnesium 2.4 Total Bilirubin 1.2 H AST 30 ALT 43 Alkaline Phosphatase 118 H Microbiology Data (last 24 hrs): 02/02/24 16:05 Blood - Blood Anaerobic Blood Culture - Final <Ayesha Nguyen - Last Filed: 02/04/24 08:05> - Studies Laboratory Data (last 24 hrs) 02/04/24 02/04/24 05:01 05:01 WBC 12.10 H Hgb 11.6 L Hct 34.8 L Plt Count 184 Sodium 132 L Potassium 4.0 BUN 73 H Creatinine 10.50 H Glucose 114 H Phosphorus 7.9 H Magnesium 2.4 Total Bilirubin 1.2 H AST 30 ALT 43 Alkaline Phosphatase 118 H Microbiology Data (last 24 hrs): 02/02/24 16:05 Blood - Blood Anaerobic Blood Culture - Final <Dalila Adan - Last Filed: 02/04/24 10:07> Assessment And Plan - Plan - Plan Orthostatic hypotension with syncope Teds PT/OT in bed IV initiated and labs sent Midodrine 5 mg p.o. 3 times daily Midodrine 5 mg p.o. now Neurochecks every 4h Consult Dr. Dee 02/01 after patient moved to second floor, he was noted to be hypotensive at 60/40. A triple-lumen femoral line was started, patient had CT head which was negative for bleed, Levophed started in ICU. Sandbag applied to left groin secondary to arterial puncture prior to femoral vein placement. No further bleeding from site. 02/02 levophed during dialysis. This am (02/04/24) pt is off levophed but SBP 115. Neurochecks normal Cardiorenal syndrome with new onset hemodialysis Recent PCI Continue dialysis per Dr. Murdock Continue meds per cardiology, holding parameters for hypotension, consult cardiology - Seen by Dr. Reyes 02/03/24. Stopped Brilinta and started plavix, stopped heparin sq and added Eliquis Patient's labs returned with hyperphosphatemia and elevated troponin, trending down. Coreg held secondary to hypotension. Dr. Reyes decreased Coreg dose to 6.25mg BID from 25mg BID to start today. dialysis 02/03/24 required levophed reinitiation but has since been weaned. Diabetes Glucose monitor SSI moderate coverage ADA diet VTE/GI prophylaxis - Advance Directives Does patient have a Living Will: No Does patient have a Durable POA for Healthcare: No - Code Status/Comfort Care Code Status Assessed: Yes (full) Critical Care: No Time Spent Managing PTS Care (In Minutes): 25 <Ayesha Nguyen - Last Filed: 02/04/24 08:05> - Plan Pt seen and examined. I agree with the note by the ATHLETIC TRAINER. Pt's BP has improved. Pt received levophed yesterday in order to do dialysis. He has been weaned off levophed. Will continue midodrine and dialysis per schedule. Monitor electrolytes. Na is 132. Pt refused to take anti-depressant. He is eager to go home. Ok to downgrade pt to the med/surg floor. <Dalila Adan - Last Filed: 02/04/24 10:07>
[2024-02-04] MEDS: LORAZEPAM 0.5 MG TABLET PO ONE (17:19)
[2024-02-04 21:50] LABS: Hemoglobin 11.1 g/dL (13.6-17.9)
--- NOTE | 2024-02-04 22:09 | PN ---
Date of Progress Note: 02/04/2024 Chief Complaint: Acute on chronic kidney injury, hypotension, and syncope. Subjective: The patient was transferred to ICU from rehab floor. He developed hypotensive episodes and for severe hypotension, he was admitted to ICU and started on Levophed drip. Blood pressure has improved. He had CT scan of the head to rule out bleeding. The patient is dialysis dependent. He d eveloped acute on advanced chronic kidney disease and required dialysis support. He underwent dialys is yesterday. Procedure was well tolerated and ultrafiltration was obtained to control anasarca. Th e patient is a 68-year-old man with recent hospitalization for cardiorenal syndrome, acute kidney inj ury on chronic kidney disease, advanced chronic kidney disease due to diabetes mellitus, and hyperten estefani associated with severe proteinuria. Renal function has not improved and the patient remains on dialysis. Midodrine is used for hypotensive episodes, and the patient was weaned off Levophed. Review of Systems: Denies chest pain, palpitation, cough, fever. Physical Examination: Lungs: Clear to auscultation bilaterally. Heart: S1, S2. Abdomen: Soft. Extremities: Edema present in both ankles. Impression And Plan: 1.Acute on chronic kidney injury. There is no evidence of recovery. The patient is dialysis depend ent. The patient will require chronic dialysis 3 times per week. Continue treatment during this hos pitalization and next dialysis is scheduled for Monday. The patient is hemodynamically stable, alth ough he will continue midodrine for hypotensive episode. 2.Coronary artery disease. The patient is followed by trucking supervisor. 3.Diabetes mellitus. Continue insulin. 4.Orthostatic hypotension, resolving status post IV albumin and IV fluids. The patient was weaned o ff Levophed gradually. Continue midodrine. 5.Cardiorenal syndrome, acute on chronic kidney injury. The patient does not have any evidence of r enal function recovery and he will continue dialysis. EB/MODL Voice ID: [id number] Report ID: [id number]
[2024-02-05] MEDS: HYDROCODONE/APAP 5/325 MG TAB PO ONE (00:49)
[2024-02-05 05:08] LABS: Absolute Basophils 0.1 K/uL (0-0.5); Absolute Eosinophils 0.1 K/uL (0-0.5); Absolute Lymphocytes (CBC) 1.2 K/uL (0.7-4.9); Absolute Neutrophil 8.7 K/uL (1.8-8.0); Basophils % 0.5 % (0-1.3); Eosinophils % 0.7 % (0-4.4); Hemoglobin 10.8 g/dL (13.6-17.9); Lymphocytes % 10.4 % (15.3-44.8); MCH 30.1 pg (27.0-35.0); MCHC 32.6 g/dL (32.0-36.0); MCV 92.4 fL (80-100); Monocytes % 9.1 % (3.3-12.3); Neutrophils % 79.3 % (41.7-73.7); Platelets 143 thou/uL (152-406); RBC Red Blood Cell Count 3.58 M/uL (4.33-5.43); Red Cell Distribution Width 14.2 % (12.1-15.2)
[2024-02-05 06:02] LABS: Albumin 3.8 g/dL (3.4-5.0); Anion Gap 15.3 mEq/L (5.0-15.0); Bilirubin Total 0.9 mg/dL (0.2-1.0); Globulin 3.9 g/dL (2.3-3.5); Magnesium 2.4 mg/dL (1.6-2.4); Potassium 4.3 mEq/L (3.5-5.1); Protein, Total 7.7 g/dL (6.4-8.2)
--- NOTE | 2024-02-05 07:03 | P.PN ---
Date of Service: 02/05/24 Subjective Oozing at hemodialysis site, H&H stable Review of Systems 10-point ROS negative unless stated in HPI Physical Examination - Vital Signs reviewed - Physical Exam General: Alert, oriented x 3 in no apparent distress, HEENT: Atraumatic, Normocephalic Neck: Supple Respiratory: Normal air movement Cardiovascular: Regular rate/rhythm, Normal S1 S2, Edema (lower extremities) Capillary refill: <2 Seconds Gastrointestinal: Normal bowel sounds Musculoskeletal: No clubbing Integumentary: Right neck hematoma, oozing at hemodialysis site right chest wall Neurological: Normal speech, Normal tone, Normal affect Assessment And Plan - Plan Orthostatic hypotension improved syncope improved Angina improved Recent PCI Wean Levophed, transferred to floor PT/OT in bed IV initiated and labs sent Midodrine 5 mg p.o. 3 times daily Midodrine 5 mg p.o. now Neurochecks every 4h Consult Dr. Dee 02/01 after patient moved to second floor, he was noted to be hypotensive at 60/40. A triple-lumen femoral line was started, patient had CT head which was negative for bleed, Levophed started in ICU. Sandbag applied to left groin secondary to arterial puncture prior to femoral vein placement. No further bleeding from site. 02/02 levophed during dialysis. This am (02/04/24) pt is off levophed but SBP 115. Neurochecks normal recent coronary angiogram during this hospital admission with PCI to OM2 for unstable angina, rapid response was called and patient was found to be hypotensive but no arrhyt hmia was seen, patient had recent coronary angiogram during this hospital admission with PCI to OM2 for unstable angina, Acute right neck hematoma Cardiorenal syndrome with new onset hemodialysis End-stage renal disease and hemodialysis Hyperphosphatemia- Hyponatremia Microcytic anemia secondary to CKD/end-stage renal disease Continue dialysis per Dr. Murdock Continue meds per cardiology, holding parameters for hypotension, consult cardiology - Seen by Dr. Reyes 02/03/24. Stopped Brilinta and started plavix, stopped heparin sq and added Eliquis Patient's labs returned with hyperphosphatemia and elevated troponin, trending down. Coreg held secondary to hypotension. Dr. Reyes decreased Coreg dose to 6.25mg BID from 25mg BID to start today. dialysis 02/03/24 required levophed reinitiation but has since been weaned. 02/04 Ultrasound of the carotid, right neck 02/04 oozing at hemodialysis site, ice pack, pressure dressing applied H&H stable- 02/04 Dr. Diaz notified of right neck hematoma, Leukocytosis Blood cultures negative Afebrile Will order urine cultures, blood cultures, rule out source of infection Diabetes Glucose monitor SSI moderate coverage ADA diet VTE/GI prophylaxis - Advance Directives Does patient have a Living Will: No Does patient have a Durable POA for Healthcare: No - Code Status/Comfort Care Code Status Assessed: Yes (full) Critical Care: No Time Spent Managing PTS Care (In Minutes): 30 > <Stacey Jerome - Last Filed: 02/06/24 06:05> Patient was seen and examined. Events of the last 24 hours have been noted. Spoke with with JEYSON regarding patient's clinical picture after evaluating and examining the patient independently. I performed a substantial part of the MDM during this patient's care today. I personally made or approved the documented management plan and acknowledge its risk of complications. I agree with the findings and documentation provided in the JEYSON's notes. Patient was moved back home stairs from rehab because of a syncopal episode. Overall, patient doing much better. Hemodynamics are improved. Patient's orthostatic hypotension. Patient with hematoma around the hemodialysis access site. Continue with hemodialysis per Nephrology. <Adolfo Whitten - Last Filed: 02/12/24 09:22>
[2024-02-05] MEDS ORDERED: SODIUM CHLORIDE 0.9% 10ML INJ IV PRN (13:39)
[2024-02-05] MEDS ORDERED: FENTANYL CITR 100 MCG/2 ML IV PRN (14:30)
[2024-02-05] MEDS: PANTOPRAZOLE 40 MG INJ IVP SCH (14:57)
[2024-02-05] MEDS: MANNITOL 25% 12.5 GM/50 ML VIAL IV PRN (15:30)
[2024-02-05] MEDS: MIDODRINE HCL 5 MG TABLET ONE (20:23)
[2024-02-05] MEDS: MIDODRINE HCL 5 MG TABLET PO SCH (20:27)
[2024-02-05] MEDS: ENSURE MAX PROTEIN 330 ML LIQUID PO SCH (20:31)
--- NOTE | 2024-02-05 20:36 | PN ---
Date of Progress Note: 02/05/2024 Subjective: Seen at bedside, is feeling much better, but is still with shortness of breath. He is h aving chest pains on and off, but no abdominal pain, nausea, vomiting, or diarrhea. Review of Systems: Positive for chest pain. No shortness of breath. No nausea, vomiting, or diarrhea. No abdominal pa in. All other systems reviewed are negative. Physical Examination: Vital Signs: Reviewed. Head and Neck: Pupils are equal, reactive to light. Intact eye movements. No JVD. No cervical lym phadenopathy. Neck: Supple. Thyroid is not enlarged. Lungs: Decreased breathing sounds bilaterally. No accessory muscle use or muscle retraction. Heart: Irregular. No extra sounds. Abdomen: Soft, nontender. Bowel sounds positive. No organomegaly. No masses or hernia. No rigidi ty or rebound. 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 Neurologic: Alert, awake, and oriented x3. No acute focal deficits appreciated. Lymph nodes: No cervical or axillary lymphadenopathy. Investigations: BUN is 96, creatinine is 12.8. Troponin was 265. Assessment/recommendation: 1.Elevated troponin with a positive chest pain. No history of coronary artery disease. I recommend Lexiscan nuclear stress test and an echo tomorrow and plan accordingly. Continue with aspirin and P lavix. 2.Dyslipidemia. Continue Lipitor 40 mg at bedtime. 3.End-stage renal disease on dialysis. Continue current management. 4.Hypertension. Blood pressure is controlled. SR/MODL Voice ID: [id number] Report ID: [id number]
--- NOTE | 2024-02-06 00:26 | PN ---
Date of Progress Note: 02/05/2024 Chief Complaint: Acute kidney injury on advanced chronic kidney disease, hypotension, syncope. History Of Present Illness: The patient was transferred to ICU from rehab floor. He developed hypot ensive episodes and severe hypotension. He was admitted to ICU and started on Levophed drip. Currmonica rich, he is on midodrine tablets. He is dialysis dependent. Renal function has not improved. Today, he is undergoing dialysis to obtain ultrafiltration. The patient remains fluid overloaded, has anas arca. The patient has dialysis today done to obtain metabolic clearance, azotemia is elevated and re nal function has not improved. Review of Systems: Denies chest pain, palpitations. Physical Examination: Lungs: Clear to auscultation bilaterally. Heart: S1, S2. Abdomen: Soft. Extremities: Edema present in both legs. Impression And Plan: 1.Acute on chronic kidney injury. There is no evidence of renal function recovery. The patient is dialysis dependent. The patient will continue dialysis 3 times per week. Continue p.o. fluid restri ction, low-sodium diet. The patient is on midodrine to prevent hypotension. 2.Coronary artery disease. The patient is followed by force adjustment supervisor. 3.Diabetes mellitus. Continue insulin. 4.Orthostatic hypotension. Continue midodrine. Continue albumin and mannitol for blood pressure tobar pport during dialysis. 5.Cardiorenal syndrome, acute on chronic kidney injury. Continue p.o. fluid restriction. Continue ultrafiltration with dialysis. EB/MODL Voice ID: [id number] Report ID: [id number]
[2024-02-06] MEDS: carvediloL 3.125 MG TAB PO SCH (05:11)
--- NOTE | 2024-02-06 06:02 | P.PN ---
Date of Service: 02/06/24 Subjective N.p.o. for heart stress test today reports Shortness of breath while laying flat, or with exertion Review of Systems 10-point ROS negative unless listed in HPI Physical Examination - Vital Signs reviewed - Physical Exam General: Awake, alert,Oriented x3, Obese HEENT: Atraumatic, Normocephalic Neck: Supple Respiratory: Normal air movement, unlabored Cardiovascular: Regular rate/rhythm, Normal S1 S2, Edema (lower extremities) Capillary refill: <2 Seconds Gastrointestinal: Normal bowel sounds Musculoskeletal: No clubbing Integumentary: Oozing at hemodialysis site, pressure dressing, right neck hematoma Neurological: Normal speech, Normal tone, Normal affect Assessment And Plan - Plan Orthostatic hypotension improved Angina Recent PCI Wean Levophed, transferred to floor PT/OT in bed Midodrine 5 mg p.o. [address] Dee 02/01 after patient moved to second floor, he was noted to be hypotensive at 60/40. A triple-lumen femoral line was started, patient had CT head which was negative for bleed, Levophed started in ICU. Sandbag applied to left groin secondary to arterial puncture prior to femoral vein placement. No further bleeding from site. 02/02 levophed during dialysis. This am (02/04/24) pt is off levophed but SBP 115. Neurochecks normal recent coronary angiogram during this hospital admission with PCI to OM2 for unstable angina, rapid response was called and patient was found to be hypotensive but no arrhythmia was seen, patient had recent coronary angiogram during this hospital admission with PCI to OM2 for unstable angina, 02/05 n.p.o. for stress test today, cardiology to eval hypotension, repeat echo mild reduced ejection fracture Orthostatic hypotension, PT to eval ambulate patient with assist Bacteremia Leukocytosis 02/05 Gram-positive cocci in clusters x1 bottle, Will order urine cultures, blood cultures IV vancomycin Acute right neck hematoma Cardiorenal syndrome with new onset hemodialysis improved End-stage renal disease and hemodialysis improved Hyperphosphatemia Hyponatremia Microcytic anemia secondary to CKD/end-stage renal disease stable Continue dialysis per Dr. Murdock Continue meds per cardiology, holding parameters for hypotension, consult cardiology - Seen by Dr. Reyes 02/03/24. Stopped Brilinta and started plavix, stopped heparin sq and added Eliquis Patient's labs returned with hyperphosphatemia and elevated troponin, trending down. Coreg held secondary to hypotension. Dr. Reyes decreased Coreg dose to 6.25mg BID from 25mg BID to start today. dialysis 02/03/24 required levophed reinitiation but has since been weaned. Blood oozing at hemodialysis site, continue Eliquis, other anticoagulation held, H&H stable 02/04 Ultrasound of the right neck-right neck hematoma, MPRESSION: A 2.0 cm hypoechoic ovoid structure just caudal to the clavicle, may represent a small hematoma or prominent lymph node. Surgery Dr Diaz reconsulted. To evaluate bleeding hemodialysis catheter, bleeding controlled with pressure dressing, ice CT of the neck ordered Diabetes Glucose monitor SSI moderate coverage ADA diet VTE/GI prophylaxis - Advance Directives Does patient have a Living Will: No Does patient have a Durable POA for Healthcare: No - Code Status/Comfort Care Code Status Assessed: Yes (full) Critical Care: No Time Spent Managing PTS Care (In Minutes): 35 > <Stacey Jerome - Last Filed: 02/06/24 19:46> Patient was seen and examined. Events of the last 24 hours have been noted. Spoke with with JEYSON regarding patient's clinical picture after evaluating and examining the patient independently. I performed a substantial part of the MDM during this patient's care today. I personally made or approved the documented management plan and acknowledge its risk of complications. I agree with the findings and documentation provided in the JEYSON's notes. Patient was moved back home stairs from rehab because of a syncopal episode. Overall, patient doing much better. Hemodynamics are improved. Patient's orthostatic hypotension. Patient with hematoma around the hemodialysis access site. Continue with hemodialysis per Nephrology. <Adolfo Whitten - Last Filed: 02/12/24 09:22>
[2024-02-06 06:07] LABS: Absolute Basophils 0.1 K/uL (0-0.5); Absolute Eosinophils 0.1 K/uL (0-0.5); Absolute Lymphocytes (CBC) 1.2 K/uL (0.7-4.9); Absolute Neutrophil 8.6 K/uL (1.8-8.0); Basophils % 0.5 % (0-1.3); Eosinophils % 1.2 % (0-4.4); Hematocrit 30.1 % (39.6-49.0); Hemoglobin 10.1 g/dL (13.6-17.9); Lymphocytes % 10.6 % (15.3-44.8); MCH 30.9 pg (27.0-35.0); MCHC 33.7 g/dL (32.0-36.0); MCV 91.9 fL (80-100); MPV 9.4 fL (7.6-11.3); Monocytes % 9.3 % (3.3-12.3); Neutrophils % 78.4 % (41.7-73.7); Nucleated Red Blood Cells % 0.1 % (0-0); Platelets 135 thou/uL (152-406); RBC Red Blood Cell Count 3.27 M/uL (4.33-5.43); Red Cell Distribution Width 14.1 % (12.1-15.2)
[2024-02-06 06:32] LABS: Albumin 3.5 g/dL (3.4-5.0); Anion Gap 14.1 mEq/L (5.0-15.0); Magnesium 2.3 mg/dL (1.6-2.4); Phosphorus 7.7 mg/dL (2.5-4.9); Potassium 4.1 mEq/L (3.5-5.1)
[2024-02-06] MEDS: FUROSEMIDE 40 MG TABLET PO SCH (08:06)
--- NOTE | 2024-02-06 08:15 | RAD REPORT ---
EXAM DESCRIPTION: US - Extremity Nonvascular Limited - 02/06/2024 12:04 am CLINICAL HISTORY: right neck hematoma COMPARISON: Fluoroscopy <1 Hour dated 01/26/2024 TECHNIQUE: Sonographic grayscale and color flow images of the right subclavian fossa were obtained . FINDINGS: Evaluation of the right subclavian fossa, area of palpable abnormality, reveals an ill-def ined homogeneous hypoechoic ovoid 2.0 x 1.8 x 1.9 cm region, appears to be just caudal to the clavicl e, without internal vascularity. This may represent a small hematoma or prominent lymph node. IMPRESSION: A 2.0 cm hypoechoic ovoid structure just caudal to the clavicle, may represent a small h ematoma or prominent lymph node.
[2024-02-06] MEDS: PANTOPRAZOLE 40 MG INJ IVP SCH (09:00)
--- NOTE | 2024-02-06 09:04 | RAD REPORT ---
EXAM DESCRIPTION: RAD - Chest Pa And Lat (2 Views) - 02/06/2024 8:57 am CLINICAL HISTORY: riley COMPARISON: Chest Single View dated 02/02/2024; Chest Single View dated 01/31/2024; Abdomen 1 View ([facility]) dated 01/31/2024; Chest Single View dated 01/26/2024 TECHNIQUE: PA and lateral views of the chest were obtained. FINDINGS: Right IJ dialysis catheter in unchanged position. The lungs are clear. Heart size is lyla l and central vasculature is within normal limits. No pleural effusion or pneumothorax seen. No acute bony finding noted. IMPRESSION: No acute cardiopulmonary process.
[2024-02-06] MEDS ORDERED: REGADENOSON 0.4 MG/5 ML SYR IV ONE (10:12)
[2024-02-06] MEDS ORDERED: NITROGLYCERIN 0.4 MG/TAB SL ONE (10:37)
--- NOTE | 2024-02-06 10:54 | PN ---
Subjective: The patient readmitted to the hospital after incident of low blood pressure. The patien t had orthopnea. Blood pressure continued to trend down. The patient denied any chest pain. The betty torres was seen by Cardiology. Plan for cardiac cath and echocardiogram. Objective: Vital Signs: When I saw the patient, blood pressure 130/60, pulse of 70, afebrile. Chest: Crackles, bilateral base. Heart: S1, S2. Systolic murmur. Abdomen: Soft, nontender, obese. Could not appreciate any organomegaly. Extremities: Trace edema. Neuro: Alert. No focality. Laboratory Data: WBC 11, hemoglobin 10.1, sodium 132, potassium 4.1, bicarb 25, BUN 71, creatinine 9 .7, calcium 8.7, phosphorus 7.7, magnesium 2.3. Current Medications: The patient on include: 1.Eliquis. 2.Midodrine 5 mg t.i.d. 3.Plavix. 4.Carvedilol 3.125 b.i.d. 5.Renvela. 6.Lasix 40 daily. 7.Pantoprazole. 8.Calcitriol. Assessment And Plan: 1.End-stage renal disease. We will continue dialysis Monday, Monday, Monday. Looked to me joaquim [email or web address]. We will arrange for the dialysis tomorrow, especially that the patient is going to possibly r eceive cath today. 2.Hyponatremia, dilutional. Will be corrected with dialysis. 3.Anemia of chronic kidney disease. No need for MEGHNA. 4.Secondary hyperparathyroidism. Continue Renvela and calcitriol. 5.Hypertension. Currently, blood pressure on the lower side. We will utilize the blood pressure fo r more ultrafiltration. We will follow up with Cardiology. Keep holding hydralazine and CARMENCITA inhibit or for the time being. We will continue midodrine. 6.Coronary artery disease, status post cardiac cath recently. We will follow up with Cardiology. Justina fitzgerald to repeat echocardiogram and possible cardiac cath. Time spent examining the patient [id number], reviewing data, lab and radiology, placing order, disc ussing the case with the patient, discussing the case with the count team member including nursing staff, harvey mina practitioner, and hospitalist more than 55 minutes. GUERO Voice ID: [id number] Report ID: [id number]
--- NOTE | 2024-02-06 12:15 | RAD REPORT ---
EXAM DESCRIPTION: NM - Rest Stress Cardiac Imaging - 02/06/2024 11:21 am CLINICAL HISTORY: CP Chest pain. COMPARISON: No comparisons TECHNIQUE: The patient was administered approximately 10.7 mCi of Tc 99m Sestamibi prior to resting SPECT imaging of the heart. The patient was then administered approximately 28.9 mCi of Tc 99m Sestam ibi following exercise or pharmacologic stress. Multiplanar SPECT images were reviewed. FINDINGS: No stress induced ischemic defect is seen to suggest stress induced ischemia. Fixed defect involving most of the inferior wall, sparing a portion of the apical segment, is favored to be artif actual, related to splanchnic uptake both on the rest and stress images. No other fixed defect is see n to suggest hibernating myocardium or scarred myocardium. The end diastolic volume is 94 ml, the end systolic volume is 51 ml, and the ejection fraction is 46 %. IMPRESSION: No evidence of stress induced ischemia. Likely artifactual fixed defect involving most of the inferior wall, related to splanchnic uptake. Left ventricular ejection fraction is slightly reduced, 46%.
--- NOTE | 2024-02-06 12:50 | EKG ---
Test Date: 2024-02-02 Test Time: 14:34:09 Secretary Receptionist: MG MEASUREMENT RESULTS: Intervals: Rate: 69 OR: QRSD: 182 QT: 476 QTc: 510 Hardin: P: -87 OR: QRS: -75 T: 37 INTERPRETIVE STATEMENTS: Atrial flutter with 4:1 AV conduction Left bundle branch block Abnormal ECG Compared to ECG 02/02/2024 14:31:55 Left bundle-branch block now present Left-axis deviation no longer present Left ventricular hypertrophy no longer present Myocardial infarct finding no longer present Electronically Signed On 02-06-24 12:43:08 CDT by Cristo Reyes
--- NOTE | 2024-02-06 13:03 | TREADPHA ---
DX: CHEST PAIN Date of Study: 02/06/2024 Ht: 5' 6 " Wt: 234 lb 11.2 oz Consulting Physician: RK MEDICATIONS: ELIQUIS, ;IPITOR, ROCALTROL, COREG, CELEXA, PLAVIX, SUBLIMAZE, LASIX, GLUCAGEN, HEPARIN, NOVOLIN R, MANNITOL, PROMATINE, PHENERGAN, RENVELA HISTORY: 68 YEAR OLD MALE WITH COMPLAINTS OF CHEST PAIN. HISTORY OF HYPERTENSION, DIABETES MELLITUS, DIALYSIS, HEART CATH, STENT TIMES ONE, HIGH CHOLESTEROL, NON SMOKER, NON DRINKER, NO DRUG USE. PHYSICIAL EXAMINATION: RESTING B.P.: 112/60 RESTING H.R.: 71 RESTING EKG: ATRIAL FLUTTER PROTOCOL: PHARMACOLOGIC EXERCISE TIME: 3:30 B.P. AT PEAK STRESS: 125/36 IMPRESSION: LEXISCAN INJECTED. CARDIOLITE INJECTED PER PROTOCOL - SEE NUCLEAR MEDICINE REPORT. CHEST PAIN FIVE OUT OF TEN PRIOR TO PROCEDURE, DURING PROCEDURE SIX OUT OF TEN ON PAIN SCALE. MANUAL BLOOD PRESSURE 122/62 - NITROGLYCERIN SL ADMINISTERED AT 1040. AT 1050 MANUAL BLOOD PRESSURE 118/54. PATIENT STATES CHEST PAIN IS AT FIVE OUT OF TEN ON PAIN SCALE.
--- NOTE | 2024-02-06 14:21 | P.PN ---
Subjective Date of Service: 02/06/24 Chief Complaint: NSTEMI Subjective: No new changes, No C/O voiced, Tolerating diet, Ambulating, Improving Review of Systems 10-point ROS is otherwise unremarkable Physical Examination - Vital Signs Temperature: 97.1 F Blood Pressure: 125/56 Pulse: 67 Respirations: 18 Pulse Ox (%): 97 - Physical Exam General: Alert, In no apparent distress HEENT: Atraumatic, PERRLA, EOMI Neck: Supple, JVD not distended Respiratory: Clear to auscultation bilaterally, Normal air movement Cardiovascular: Regular rate/rhythm, Normal S1 S2 Gastrointestinal: Normal bowel sounds, No tenderness Musculoskeletal: No tenderness Integumentary: No rashes Neurological: Normal speech, Normal tone, Normal affect Lymphatics: No axilla or inguinal lymphadenopathy Other Physical/Emotional Findings: pt is sedate, states he feels down, wants to sleep but cannot. States post assisted, his sleep schedule has been poor. Prolonged hospitalization has brought pt down - Studies Laboratory Data (last 24 hrs) 02/06/24 02/06/24 06:00 06:00 WBC 11.00 H Hgb 10.1 L Hct 30.1 L Plt Count 135 L Sodium 132 L Potassium 4.1 BUN 71 H Creatinine 9.70 H Glucose 97 Phosphorus 7.7 H Magnesium 2.3 Medications List Reviewed: Yes Assessment And Plan - Current Problems (Diagnosis) (1) NSTEMI (non-ST elevated myocardial infarction) Current Visit: Yes Status: Acute Plan: patient denies having any chest pain, no arrhythmia seen, patient coronary angiogram shown mild to moderate mid LAD disease, significant OM2 s/p PCI and mild RCA disease. - Stress test is negative - Troponin leak most likely secondary to ESRD, recent Hypotensive episode. - Continue to trend cardiac enzymes until peak and down trending. - Continue Plavix 75 mg daily - continue ASA 81 mg daily (2) Chronic diastolic heart failure Current Visit: Yes Status: Acute Plan: volume adjusement through dialysis Continue Coreg 3.125 mg po BID (used to be on 25 mg BID) (3) Atrial fibrillation Current Visit: Yes Status: Acute Plan: Eliquis 5 mg po BID
[2024-02-06] MEDS: VANCOMYCIN 2 GM in NA CHLORIDE 0.9% 500 ML IVPB SCH (14:23)
--- NOTE | 2024-02-06 22:17 | RAD REPORT ---
EXAM DESCRIPTION: CT - Soft Tissue Neck W/Contr CLINICAL HISTORY: hematoma right neck COMPARISON: <Comparisons> TECHNIQUE All CT scans are performed using dose optimization technique as appropriate and may includ e automated exposure control or mA/KV adjustment according to patient size. FINDINGS: Nasopharyngeal tissues are normal in appearance. Fossa Rosenmller are normal. Parapharyngeal fat triangles are symmetric. Tongue base structures are normal. Right-sided dialysis catheter has its tip the SVC. There is a mild curve to the catheter at the base of the neck on the right. No hematoma seen. Salivary glands are normal in appearance. Upper lung singh are clear. Included intracranial contents are unremarkable. Incidental note is made OPLL in the upper cervical spine. IMPRESSION: No significant hematoma is seen.
[2024-02-06] MEDS: SODIUM CHLORIDE 0.9% 10ML INJ IV PRN (22:48)
[2024-02-07 06:04] LABS: Absolute Basophils 0.1 K/uL (0-0.5); Absolute Eosinophils 0.2 K/uL (0-0.5); Absolute Lymphocytes (CBC) 1.4 K/uL (0.7-4.9); Absolute Monocytes 0.8 K/uL (0.1-1.3); Basophils % 0.8 % (0-1.3); Eosinophils % 1.6 % (0-4.4); Hematocrit 28.8 % (39.6-49.0); Hemoglobin 9.5 g/dL (13.6-17.9); MCHC 33.2 g/dL (32.0-36.0); MCV 93.4 fL (80-100); MPV 9.5 fL (7.6-11.3); Monocytes % 7.9 % (3.3-12.3); Neutrophils % 76.7 % (41.7-73.7); Platelets 126 thou/uL (152-406); RBC Red Blood Cell Count 3.08 M/uL (4.33-5.43); Red Cell Distribution Width 14.2 % (12.1-15.2)
[2024-02-07 06:26] LABS: Albumin 3.4 g/dL (3.4-5.0); Anion Gap 19.3 mEq/L (5.0-15.0); Magnesium 2.2 mg/dL (1.6-2.4); Phosphorus 8.2 mg/dL (2.5-4.9); Potassium 4.3 mEq/L (3.5-5.1)
--- NOTE | 2024-02-07 07:01 | ECHO ---
HEIGHT: 5 ft 6 in WEIGHT: 234 lb 11.2 oz DATE OF STUDY: 02/06/[address]: Gordy Villa 2-DIMENSIONAL: YES M.MODE: YES DOPPLER: YES COLOR FLOW: YES TDS: YES PORTABLE: YES DEFINITY: BUBBLE STUDY: DIAGNOSIS: CHEST PAIN CARDIAC HISTORY: CATHERIZATION: YES SURGERY: NO PROSTHETIC VALVE: NO PACEMAKER: NO MEASUREMENTS (cm) DIASTOLIC (NORMALS) SYSTOLIC (NORMALS) IVSd 1.3 (0.6-1.2) LA Diam 2.6 (1.9-4.0) LVEF 58% LVIDd 4.1 (3.5-5.7) LVIDs 2.9 (2.0-3.5) %FS 30% LVPWd 1.3 (0.6-1.2) Ao Diam 2.8 (2.0-3.7) 2 DIMENSIONAL ASSESSMENT: RIGHT ATRIUM: POOR WINDOWS LEFT ATRIUM: POOR WINDOWS RIGHT VENTRICLE: POOR WINDOWS LEFT VENTRICLE: POOR WINDOWS TRICUSPID VALVE: POOR WINDOWS MITRAL VALVE: POOR WINDOWS PULMONIC VALVE: POOR WINDOWS AORTIC VALVE: POOR WINDOWS PERICARDIAL EFFUSION: POOR WINDOWS AORTIC ROOT: POOR WINDOWS LEFT VENTRICULAR WALL MOTION: DOPPLER/COLOR FLOW: COMMENTS: 1. VERY LIMITED EXAM DUE TO POOR WINDOWS 2. OVERALL LEFT VENTRICULAR EJECTION FRACTION APPEARS NORMAL 3. SEVERE CONCENTRIC LEFT VENTRICULAR HYPERTROPHY TECHNOLOGIST: EDIN JETT
--- NOTE | 2024-02-07 07:26 | P.PN ---
Date of Service: 02/07/24 Subjective Syncopal episode, orthostatic hypotensive Reports more alert generalized weakness Review of Systems 10-point ROS negative unless listed in HPI Physical Examination - Vital Signs reviewed - Physical Exam General: Awake, alert,Oriented x3, Obese HEENT: Atraumatic, Normocephalic Neck: Supple Respiratory: Normal air movement, unlabored Cardiovascular: Regular rate/rhythm, Normal S1 S2, Edema (lower extremities), orthostatic hypotension Capillary refill: <2 Seconds Gastrointestinal: Normal bowel sounds, nontender Musculoskeletal: No clubbing, moderate generalized weakness Integumentary: Oozing at hemodialysis site, pressure dressing, right neck hematoma Neurological: Normal speech, Normal tone, Normal affect Assessment And Plan - Plan Orthostatic hypotension Angina Recent PCI PT/OT in bed Midodrine 5 mg p.o. [address] Dee 02/01 after patient moved to second floor, he was noted to be hypotensive at 60/40. A triple-lumen femoral line was started, patient had CT head which was negative for bleed, Levophed started in ICU. Sandbag applied to left groin sec ondary to arterial puncture prior to femoral vein placement. No further bleeding from site. 02/02 levophed during dialysis. This am (02/04/24) pt is off levophed but SBP 115. Neurochecks normal recent coronary angiogram during this hospital admission with PCI to OM2 for unstable angina, rapid response was called and patient was found to be hypotensive but no arrhythmia was seen, patient had recent coronary angiogram during this hospital admission with PCI to OM2 for unstable angina, 02/05 n.p.o. for stress test today, cardiology to eval hypotension, repeat echo mild reduced ejection fracture Orthostatic hypotension, PT to eval ambulate patient with assist Nephrology to adjust/prevent over diuresing during hemodialysis-midodrine,-leg wraps to prevent hypotension Pending discharge to inpatient rehab with orthostasis improved Bacteremia Leukocytosis resolved 02/05 Gram-positive cocci in clusters x1 bottle, Will order urine cultures, blood cultures IV vancomycin, Acute right neck hematoma Cardiorenal syndrome with new onset hemodialysis improved End-stage renal disease and hemodialysis improved Hyperphosphatemia Hyponatremia Microcytic anemia secondary to CKD/end-stage renal disease stable Continue dialysis per Dr. Murdock Continue meds per cardiology, holding parameters for hypotension, consult cardiology - Seen by Dr. Reyes 02/03/24. Stopped Brilinta and started plavix, stopped heparin sq and added Eliquis Patient's labs returned with hyperphosphatemia and elevated troponin, trending down. Coreg held secondary to hypotension. Dr. Reyes decreased Coreg dose to 6.25mg BID from 25mg BID to start today. dialysis 02/03/24 required levophed reinitiation but has since been weaned. Blood oozing at hemodialysis site, continue Eliquis, other anticoagulation held, H&H stable 02/04 Ultrasound of the right neck-right neck hematoma, MPRESSION: A 2.0 cm hypoechoic ovoid structure just caudal to the clavicle, may represent a small hematoma or prominent lymph node. Surgery Dr Diaz reconsulted. To evaluate bleeding hemodialysis catheter, bleeding controlled with pressure dressing, ice 02/05 CT of the neck ordered no hematoma seen Diabetes Glucose monitor SSI moderate coverage ADA diet VTE/GI prophylaxis - Advance Directives Does patient have a Living Will: No Does patient have a Durable POA for Healthcare: No - Code Status/Comfort Care Code Status Assessed: Yes (full) Critical Care: No Time Spent Managing PTS Care (In Minutes): 30 > <Stacey Jerome - Last Filed: 02/11/24 06:15> Patient was seen and examined. Events of the last 24 hours have been noted. Spoke with with JEYSON regarding patient's clinical picture after evaluating and examining the patient independently. I performed a substantial part of the MDM during this patient's care today. I personally made or approved the documented management plan and acknowledge its risk of complications. I agree with the findings and documentation provided in the JEYSON's notes. Patient was moved back home stairs from rehab because of a syncopal episode. Overall, patient doing much better. Hemodynamics are improved. Patient's orthostatic hypotension. Bleeding from dialysis access catheter site has resolved. Patient remains lightheaded when he stands up. Orthostasis checks were done. Continue on midodrine and added fludrocortisone per Nephrology. <Adolfo Whitten - Last Filed: 02/12/24 09:23>
[2024-02-07] MEDS ORDERED: VANCOMYCIN 1 GM in NA CHLORIDE 0.9% 250 ML IVPB SCH (18:00)
[2024-02-08 04:35] LABS: Absolute Basophils 0.1 K/uL (0-0.5); Absolute Eosinophils 0.2 K/uL (0-0.5); Absolute Lymphocytes (CBC) 1.4 K/uL (0.7-4.9); Absolute Monocytes 0.8 K/uL (0.1-1.3); Absolute Neutrophil 6.8 K/uL (1.8-8.0); Basophils % 0.9 % (0-1.3); Eosinophils % 1.9 % (0-4.4); Hematocrit 30.8 % (39.6-49.0); Hemoglobin 10.4 g/dL (13.6-17.9); Lymphocytes % 15.4 % (15.3-44.8); MCH 30.9 pg (27.0-35.0); MCHC 33.7 g/dL (32.0-36.0); MCV 91.9 fL (80-100); MPV 8.9 fL (7.6-11.3); Monocytes % 8.5 % (3.3-12.3); Neutrophils % 73.3 % (41.7-73.7); Platelets 144 thou/uL (152-406); RBC Red Blood Cell Count 3.36 M/uL (4.33-5.43); Red Cell Distribution Width 14.4 % (12.1-15.2)
[2024-02-08 05:08] LABS: Albumin 3.5 g/dL (3.4-5.0); Anion Gap 13.1 mEq/L (5.0-15.0); Magnesium 2.1 mg/dL (1.6-2.4); Phosphorus 5.8 mg/dL (2.5-4.9); Potassium 4.1 mEq/L (3.5-5.1)
--- NOTE | 2024-02-08 07:16 | P.DS ---
Admission Date: 02/02/24 Discharge Date: 02/08/24 Disposition: TRANSFER TO INPATIENT REHAB Reason for Admission: NSTEMI Brief History of Present Illness: Mr. Friedman is a 68-year-old gentleman with a recent hospitalization for cardiorenal syndrome with ARLENE. During his hospitalization he underwent left cardiac cath with PCI per Dr. Reyes, hemodialysis was initiated per Dr. Murdock. He had a prolonged hospital course secondary to difficulty managing electrolyte/fluid balances with resultant nausea and diarrhea. C. difficile was negative. The patient did slowly improve and was discharged to inpatient rehab 2 to 3 days ago. A rapid response was called on the fifth floor, when I entered the room Mr. Ashford was supine, hypotensive, and poorly responsive. PT had placed teds and placed patient supine prior to my arrival and his blood pressure responded from a systolic in the 70s to systolic in the 90s. Sternal rub resulted in Mr. Friedman arousing enough to carry on conversation, he spoke with his , admits to nausea, generalized weakness, and mild dizziness. Dr. Dee was contacted per patient's primary nurse. The patient was given midodrine around 7 AM and this dose will be repeated. Peripheral IV was started in the right wrist x 1 attempt and patient will be transferred to inpatient unit when bed available. Currently his pressure is 98/58, heart rate 74, pulse ox 94 on room air, responsive to verbal stimuli. Dr. Dee at bedside - Physical Exam General: Cooperative, Moderate distress, Obese HEENT: Atraumatic, Normocephalic Neck: Supple Respiratory: Normal air movement Cardiovascular: No edema, Regular rate/rhythm, Normal S1 S2 Capillary refill: <2 Seconds Gastrointestinal: Soft and benign, Other (Hiccoughs) Musculoskeletal: No clubbing Integumentary: No rashes, Other (Pallor) Neurological: Normal speech, Normal affect, Other (Follows commands but generally weak) Lymphatics: No axilla or inguinal lymphadenopathy Vital Signs/Physical Exam: Temp Pulse Resp BP Pulse Ox 96.9 F 72 20 119/64 92 02/08/24 04:00 02/08/24 05:48 02/08/24 04:00 02/08/24 05:48 02/08/24 00:00 Other Physical/Emotional Findings: pt is sedate, states he feels down, wants to sleep but cannot. States post custodial, his sleep schedule has been poor. Prolonged hospitalization has brought pt down Laboratory Data at Discharge: WBC 9.30 thou/uL (4.3-10.9) 02/08/24 04:20 Hgb 10.4 g/dL (13.6-17.9) L D 02/08/24 04:20 Hct 30.8 % (39.6-49.0) L 02/08/24 04:20 Plt Count 144 thou/uL (152-406) L 02/08/24 04:20 Sodium 133 mEq/L (136-145) L 02/08/24 04:20 Potassium 4.1 mEq/L (3.5-5.1) 02/08/24 04:20 BUN 52 mg/dL (7-18) H 02/08/24 04:20 Creatinine 8.59 mg/dL (0.70-1.30) H 02/08/24 04:20 Glucose 94 mg/dL (74-106) 02/08/24 04:20 Phosphorus 5.8 mg/dL (2.5-4.9) H 02/08/24 04:20 Magnesium 2.1 mg/dL (1.6-2.4) 02/08/24 04:20 Total Bilirubin 0.9 mg/dL (0.2-1.0) 02/05/24 04:32 AST 18 U/L (15-37) 02/05/24 04:32 ALT 34 U/L (16-61) 02/05/24 04:32 Alkaline Phosphatase 109 U/L (45-117) 02/05/24 04:32 Home Medications: Cetirizine HCl 1 tab PO DAILY PRN 01/30/23 Insulin Glargine,Hum.rec.anlog [Toumiriamo Stanton Solostar] 12 unit SQ BEDTIME 01/30/23 Potassium Chloride [Klor-Con 10] 1 tab PO DAILY 01/30/23 Atorvastatin Calcium [Lipitor] 40 mg PO BEDTIME 30 Days #30 tab 01/22/24 Ticagrelor [Brilinta*] 90 mg PO BID 30 Days #60 mg 01/22/24 Aspirin 81 mg PO DAILY 02/01/24 Calcitrol [Rocaltrol*] 1 tab PO Q48H 02/01/24 Midodrine HCl [Proamatine*] 5 mg PO DAILY 02/01/24 Acetaminophen [Tylenol Extra Strength] 500 mg PO Q6HR PRN 02/02/24 Atorvastatin Calcium [Lipitor] 40 mg PO BEDTIME 02/02/24 Docusate/Senna [Senokot-S*] 2 tab PO BEDTIME PRN 02/02/24 Melatonin [Melatonin*] 3 mg PO BEDTIME PRN 02/02/24 Ondansetron [Zofran (Odt)*] 4 mg PO Q4HP PRN 02/02/24 carvediloL [Coreg] 6.25 mg PO BID 02/02/24 Followup: OSMAN RAINEY [Primary Care Provider] -
[2024-02-08] MEDS: MIDODRINE HCL 5 MG TABLET PO ONE (10:01)
[2024-02-08] MEDS: NA CHLORIDE 0.9% 250 ML ONE (11:53)
[2024-02-08] MEDS: FLUDROCORTISONE 0.1 MG TAB PO SCH (11:57)
[2024-02-08] MEDS: NA CHLORIDE 0.9% 250 ML IV SCH (12:00)
--- NOTE | 2024-02-08 12:44 | PN ---
Date of Progress Note: 02/08/2024 Subjective: The patient was admitted to the hospital for low blood pressure. The patient continued to have severe orthostatic today. Blood pressure dropped from 120 to 75. The patient feeling dizzy yesterday. We placed the patient on stocking socks. Physical Examination: Vital Signs: Blood pressure 128/61, pulse of 72. Again, orthostatic down systolic to 72. Chest: Clear to auscultation. Heart: S1, S2 regular. Abdomen: Soft, nontender. Extremities: No edema. Stocking socks. Neurologic: Alert. No focality. Laboratory Data: Hemoglobin 10.4. Sodium 133, potassium 4.1, bicarb 25, BUN 52, creatinine 8.5, glenda cium 8.8, phosphorus 5.8, magnesium 2.1, albumin 3.5, cortisol level 18. Vancomycin trough 25. Current Medications: The patient is on include: 1.Eliquis. 2.Plavix. 3.Heparin. 4.Atorvastatin. 5.Carvedilol 3.125 b.i.d. 6.Renvela. 7.Pantoprazole. 8.Insulin. 9.Fentanyl. 10.Calcitriol. Assessment And Plan: 1.End-stage renal disease. We will continue the patient on dialysis hold on any ultrafil tration on dialysis and we will monitor the patient. 2.Hypertension. Currently, blood pressure is severe orthostatic. I am going to hold all blood pres sure medication. Discontinue Lasix. We will add to the patient Florinef, and we will challenge with out any ultrafiltration on the dialysis. I am going to go ahead also give the patient 250 of normal saline and we will follow up the patient. 3.Adrenal insufficiency has been ruled out. I am going to continue on the midodrine. 4.Severe neuropathy as above. 5.Secondary hyperparathyroidism. Continue calcitriol and Renvela. 6.Osteomyelitis. Continue vancomycin. We will follow up with primary. LISA/QUIANA Voice ID: [id number] Report ID: [id number]
[2024-02-09 05:16] LABS: Albumin 3.4 g/dL (3.4-5.0); Anion Gap 14.1 mEq/L (5.0-15.0); Magnesium 2.2 mg/dL (1.6-2.4); Phosphorus 7.1 mg/dL (2.5-4.9); Potassium 4.1 mEq/L (3.5-5.1)
--- NOTE | 2024-02-09 07:05 | P.PN ---
Date of Service: 02/08/24 Subjective, No reported chest pain, shortness of breath Ambulates with nursing and PT for orthostasis Review of Systems 10-point ROS negative unless listed in HPI Physical Examination - Vital Signs reviewed - Physical Exam General: Awake, alert,Oriented x3, Obese HEENT: Atraumatic, Normocephalic Neck: Supple Respiratory: Normal air movement, unlabored Cardiovascular: Regular rate/rhythm, Normal S1 S2, Edema (lower extremities) Capillary refill: <2 Seconds Gastrointestinal: Normal bowel sounds soft nontender Musculoskeletal: No clubbing, generalized weakness Integumentary: Hemodialysis cath, right neck hematoma Neurological: Normal speech, Normal tone, Normal affect Assessment And Plan - Plan Orthostatic hypotension Angina Atrial flutter Chronic anticoagulation Recent PCI Wean Levophed, transferred to floor PT/OT in bed, as tolerated Midodrine 5 mg p.o. [address] Dee 02/01 after patient moved to second floor, he was noted to be hypotensive at 60/40. A triple-lumen femoral line was started, patient had CT head which was negative for bleed, Levophed started in ICU. Sandbag applied to left groin secondary to arterial puncture prior to femoral vein placement. No further bleeding from site. 02/02 levophed during dialysis. This am (02/04/24) pt is off levophed but SBP 115. Neurochecks normal recent coronary angiogram during this hospital admission with PCI to OM2 for unstable angina, rapid response was called and patient was found to be hypotensive but no ar rhythmia was seen, patient had recent coronary angiogram during this hospital admission with PCI to OM2 for unstable angina, 02/05 for stress test, no evidence of ischemia, cardiology to eval hypotension, repeat echo mild reduced ejection fracture Orthostatic hypotension, PT to eval ambulate patient with assist Leg wrapped SCDs,, midodrine, nephrology to adjust over diuresing during hemodialysis, Plan to transition to inpatient rehab after discharge Coreg, Eliquis Bleeding from the dialysis catheter resolved with pressure, ice, holding Eliquis, Eliquis resumed Bacteremia Leukocytosis improved 02/05 Gram-positive cocci in clusters x1 bottle, Will order urine cultures, blood cultures IV vancomycin Acute right neck hematoma Cardiorenal syndrome with new onset hemodialysis improved End-stage renal disease and hemodialysis improved Hyperphosphatemia Hyponatremia Microcytic anemia secondary to CKD/end-stage renal disease stable Continue dialysis per Dr. Murdock Continue meds per cardiology, holding parameters for hypotension, consult cardiology - Seen by Dr. Reyes 02/03/24. Stopped Brilinta and started plavix, stopped heparin sq and added Eliquis Patient's labs returned with hyperphosphatemia and elevated troponin, trending down. Coreg held secondary to hypotension. Dr. Reyes decreased Coreg dose to 6.25mg BID from 25mg BID to start today. dialysis 02/03/24 required levophed reinitiation but has since been weaned. Blood oozing at hemodialysis site, continue Eliquis, other anticoagulation held, H&H stable 02/04 Ultrasound of the right neck-right neck hematoma, MPRESSION: A 2.0 cm hypoechoic ovoid structure just caudal to the clavicle, may represent a small hematoma or prominent lymph node. Surgery Dr Diaz reconsulted. To evaluate bleeding hemodialysis catheter, bleeding controlled with pressure dressing, ice CT of the neck ordered no hematoma noted Diabetes Glucose monitor SSI moderate coverage ADA diet Routine calorie supplementation VTE/GI prophylaxis - Advance Directives Does patient have a Living Will: No Does patient have a Durable POA for Healthcare: No - Code Status/Comfort Care Code Status Assessed: Yes (full) Critical Care: No Time Spent Managing PTS Care (In Minutes): 35 > <Stacey Jerome - Last Filed: 02/11/24 06:20> Patient was seen and examined. Events of the last 24 hours have been noted. Spoke with with JEYSON regarding patient's clinical picture after evaluating and examining the patient independently. I performed a substantial part of the MDM during this patient's care today. I personally made or approved the documented management plan and acknowledge its risk of complications. I agree with the findings and documentation provided in the JEYSON's notes. Patient was moved back home stairs from rehab because of a syncopal episode. Overall, patient doing much better. Hemodynamics are improved. Patient continues with orthostatic hypotension. Patient with hematoma around the hemodialysis access site. Continue with strict blood pressure control and monitor H&H closely. Patient needs to start getting out of bed and ambulating. Otherwise his long-term prognosis will be poor. Working with physical therapy and if he participates and will get him to inpatient rehab. <Adolfo Whitten - Last Filed: 02/12/24 09:24>
[2024-02-09] MEDS: NA CHLORIDE 0.9% 250 ML IV ONE (09:39)
--- NOTE | 2024-02-09 19:35 | PN ---
Date of Progress Note: 02/09/2024 Subjective: No overnight event. Blood pressure is stable. Seen and examined during dialysis. Plan for discharge today. Cleared for discharge from Nephrology point of view. Objective: Vital Signs: Temperature 97.5, pulse rate 66, blood pressure 144/70. General: Awake and alert, not in distress. Neck: Supple. No elevated JVD. Heart: Regular rate and rhythm. Normal S1, S2. Chest: Clear to auscultation bilaterally. No rales or wheezes. Abdomen: Soft, nontender. Extremities: No edema. Laboratory Data: White count 9.3, hemoglobin 10.4, sodium 133, potassium 4.1, creatinine 10.4. Medications: Include Eliquis, Lipitor, calcitriol, Coreg, Plavix, fludrocortisone, midodrine. Assessment And Plan: This is a 68-year-old man with a history of congestive heart failure, recently underwent cardiac catheterization, status post stent placement. The patient started on dialysis. As sessment and plan: 1.End-stage renal disease. Continue dialysis Monday, Monday, and Monday. Renal diet. Renally d ose medication. No UF. 2.Mild hyponatremia. Will correct with dialysis. 3.Secondary hyperparathyroidism. Continue calcitriol. 4.Orthostatic hypotension, off diuretic. Continue midodrine and Florinef. 5.Osteomyelitis. Continue vancomycin. Thanks for allowing me to participate in patient's care. We will plan to discharge the patient. Kindra londono is cleared for discharge from nephrology point of view. RAYNE/QUIANA Voice ID: [id number] Report ID: [id number]
[2024-02-10 06:25] LABS: Albumin 3.3 g/dL (3.4-5.0); Magnesium 2.1 mg/dL (1.6-2.4); Phosphorus 4.2 mg/dL (2.5-4.9)
--- NOTE | 2024-02-10 07:14 | P.PN ---
Date of Service: 02/10/24 Subjective Family at bedside, fall precautions, for orthostatic hypotension Review of Systems 10-point ROS negative unless listed in HPI Physical Examination - Vital Signs reviewed - Physical Exam General: Awake, alert,Oriented x3, Obese no acute distress noted HEENT: Atraumatic, Normocephalic Neck: Supple Respiratory: Normal air movement, unlabored Cardiovascular: Atrial flutter, regular rate/rhythm, Normal S1 S2, Edema (lower extremities) Capillary refill: <2 Seconds Gastrointestinal: Normal bowel sounds, nontender Musculoskeletal: No clubbing moderate generalized weak Integumentary: Hemodialysis cath, pressure dressing, right neck hematoma Neurological: Normal speech, Normal tone, Normal affect Assessment And Plan - Plan Orthostatic hypotension improved Angina Recent PCI A flutter Chronic anticoagulation Wean Levophed, transferred to floor PT/OT in bed Midodrine 5 mg p.o. [address] Dee 02/01 after patient moved to second floor, he was noted to be hypotensive at 60/40. A triple-lumen femoral line was started, patient had CT head which was negative for bleed, Levophed started in ICU. Sandbag applied to left groin secondary to arterial puncture prior to femoral vein placement. No further bleeding from site. 02/02 levophed during dialysis. This am (02/04/24) pt is off levophed but SBP 115. Neurochecks normal recent coronary angiogram during this hospital admission with PCI to OM2 for unstable angina, rapid response was called and patient was found to be hypotensive but no arrhythmia was seen, patient had recent coronary angiogram during this hospital admission with PCI to OM2 for unstable angina, 02/05 for stress no evidence of induced ischemia, cardiology to eval hypotension, repeat echo mild reduced ejection fracture Orthostatic hypotension, PT to eval ambulate patient with assist Florinef, midodrine, leg wrapping, nephrology to prevent overdiuresis and to prevent orthostatic hypotension Coreg, Eliquis for a flutter Bacteremia Leukocytosis improved 02/05 Gram-positive cocci in clusters x1 bottle, Will order urine cultures, blood cultures IV vancomycin completed Acute right neck hematoma Cardiorenal syndrome with new onset hemodialysis improved End-stage renal disease and hemodialysis improved Hyperphosphatemia Hyponatremia improved Microcytic anemia secondary to CKD/end-stage renal disease stable Continue dialysis per Dr. Alroumoh Continue meds per cardiology, holding parameters for hypotension, consult cardiology - Seen by Dr. Reyes 02/03/24. Stopped Brilinta and started plavix, stopped heparin sq and added Eliquis Patient's labs returned with hyperphosphatemia and elevated troponin, trending down. Coreg held secondary to hypotension. Dr. Reyes decreased Coreg dose to 6.25mg BID from 25mg BID to start today. dialysis 02/03/24 required levophed reinitiation but has since been weaned. Blood oozing at hemodialysis site, continue Eliquis, other anticoagulation held, H&H stable 02/04 Ultrasound of the right neck-right neck hematoma, MPRESSION: A 2.0 cm hypoechoic ovoid structure just caudal to the clavicle, may represent a small hematoma or prominent lymph node. Surgery Dr Diaz reconsulted. To evaluate bleeding hemodialysis catheter, bleeding controlled with pressure dressing, ice CT of the neck ordered negative for hematoma Diabetes Glucose monitor SSI moderate coverage ADA diet VTE/GI prophylaxis - Advance Directives Does patient have a Living Will: No Does patient have a Durable POA for Healthcare: No - Code Status/Comfort Care Code Status Assessed: Yes (full) Critical Care: No Time Spent Managing PTS Care (In Minutes): 35 > <Stacey Jerome - Last Filed: 02/11/24 06:26> Patient was seen and examined. Events of the last 24 hours have been noted. Spoke with with JEYSON regarding patient's clinical picture after evaluating and examining the patient independently. I performed a substantial part of the MDM during this patient's care today. I personally made or approved the documented management plan and acknowledge its risk of complications. I agree with the findings and documentation provided in the JEYSON's notes. <Adolfo Whitten - Last Filed: 02/12/24 09:25>
--- NOTE | 2024-02-10 07:15 | P.PN ---
Date of Service: 02/09/24 Subjective Syncopal episode today, moderate to severe orthostasis working on adjusting antihypertensive Review of Systems 10-point ROS negative unless listed in HPI Physical Examination - Vital Signs reviewed - Physical Exam General: Awake, alert,Oriented x3, Obese, syncopal episode HEENT: Atraumatic, Normocephalic Neck: Supple Respiratory: Normal air movement, unlabored Cardiovascular: Atrial flutter, Edema (lower extremities) Capillary refill: <2 Seconds Gastrointestinal: Normal bowel sounds Musculoskeletal: No clubbing, moderate to severe deconditioning Integumentary: Hemodialysis catheter right chest wall, right neck hematoma Neurological: Normal speech, Normal tone, Normal affect Assessment And Plan - Plan Persistent orthostatic hypotension Severe deconditioning Angina Atrial flutter Chronic anticoagulation Recent PCI Wean Levophed, transferred to floor PT/OT in bed Midodrine 5 mg p.o. [address] Dee 02/01 after patient moved to second floor, he was noted to be hypotensive at 60/40. A triple-lumen femoral line was started, patient had CT head which was n egative for bleed, Levophed started in ICU. Sandbag applied to left groin secondary to arterial puncture prior to femoral vein placement. No further bleeding from site. 02/02 levophed during dialysis. This am (02/04/24) pt is off levophed but SBP 115. Neurochecks normal recent coronary angiogram during this hospital admission with PCI to OM2 for unstable angina, rapid response was called and patient was found to be hypotensive but no arrhythmia was seen, patient had recent coronary angiogram during this hospital admission with PCI to OM2 for unstable angina, 02/05 stress negative for induced ischemia, cardiology to eval hypotension, repeat echo mild reduced ejection fracture Orthostatic hypotension, PT to eval ambulate patient with assist Florinef added, adjust blood pressure medication, SCDs Pending discharge to acute inpatient rehab once Orthostatic hypotension resolved Bacteremia Leukocytosis resolved 02/05 Gram-positive cocci in clusters x1 bottle, Will order urine cultures, blood cultures IV vancomycin Acute right neck hematoma Cardiorenal syndrome with new onset hemodialysis improved End-stage renal disease and hemodialysis Hyperphosphatemia Hyponatremia Microcytic anemia secondary to CKD/end-stage renal disease stable Continue dialysis per Dr. Murdock Continue meds per cardiology, holding parameters for hypotension, consult cardiology - Seen by Dr. Reyes 02/03/24. Stopped Brilinta and started plavix, stopped heparin sq and added Eliquis Patient's labs returned with hyperphosphatemia and elevated troponin, trending down. Coreg held secondary to hypotension. Dr. Reyes decreased Coreg dose to 6.25mg BID from 25mg BID to start today. dialysis 02/03/24 required levophed reinitiation but has since been weaned. Blood oozing at hemodialysis site, continue Eliquis, other anticoagulation held, H&H stable 02/04 Ultrasound of the right neck-right neck hematoma, MPRESSION: A 2.0 cm hypoechoic ovoid structure just caudal to the clavicle, may represent a small hematoma or prominent lymph node. Surgery Dr Diaz reconsulted. To evaluate bleeding hemodialysis catheter, bleeding controlled with pressure dressing, ice CT of the neck no hematoma visualized Diabetes Glucose monitor SSI moderate coverage ADA diet VTE/GI prophylaxis - Advance Directives Does patient have a Living Will: No Does patient have a Durable POA for Healthcare: No - Code Status/Comfort Care Code Status Assessed: Yes (full) Critical Care: No Time Spent Managing PTS Care (In Minutes): 35 > <Stacey Jerome - Last Filed: 02/11/24 06:33> Patient was seen and examined. Events of the last 24 hours have been noted. Spoke with with JEYSON regarding patient's clinical picture after evaluating and examining the patient independently. I performed a substantial part of the MDM during this patient's care today. I personally made or approved the documented management plan and acknowledge its risk of complications. I agree with the findings and documentation provided in the JEYSON's notes. <Adolfo Whitten - Last Filed: 02/12/24 09:24>
[2024-02-10 08:58] LABS: Absolute Basophils 0.1 K/uL (0-0.5); Absolute Eosinophils 0.2 K/uL (0-0.5); Absolute Lymphocytes (CBC) 1.4 K/uL (0.7-4.9); Absolute Monocytes 0.6 K/uL (0.1-1.3); Eosinophils % 2.7 % (0-4.4); Hematocrit 29.3 % (39.6-49.0); Lymphocytes % 14.9 % (15.3-44.8); MCH 31.3 pg (27.0-35.0); MCV 92.1 fL (80-100); MPV 8.8 fL (7.6-11.3); Monocytes % 6.4 % (3.3-12.3); Platelets 149 thou/uL (152-406); RBC Red Blood Cell Count 3.18 M/uL (4.33-5.43); Red Cell Distribution Width 14.3 % (12.1-15.2)
[2024-02-10 09:13] LABS: Albumin 3.3 g/dL (3.4-5.0); Albumin/Globulin Ratio 0.9 (1.1-1.8); Anion Gap 13.1 mEq/L (5.0-15.0); Bilirubin Total 0.9 mg/dL (0.2-1.0); Globulin 3.7 g/dL (2.3-3.5); Potassium 4.1 mEq/L (3.5-5.1)
--- NOTE | 2024-02-10 12:34 | P.PN ---
Subjective Date of Service: 02/10/24 Chief Complaint: NSTEMI Subjective: No new changes Physical Examination - Vital Signs Temperature: 98.9 F Blood Pressure: 118/67 Pulse: 69 Respirations: 16 Pulse Ox (%): 94 - Physical Exam General: Other (chronically ill-appearing) HEENT: Atraumatic, Normocephalic Neck: Supple Respiratory: Other (symmetric chest expansion) Cardiovascular: No rubs Gastrointestinal: Soft and benign Musculoskeletal: No clubbing Integumentary: No warmth Neurological: Normal speech Urinary: Other (no bladder distention) External genitalia: Deferred Rectal: Deferred Other Physical/Emotional Findings: pt is sedate, states he feels down, wants to sleep but cannot. States post group home, his sleep schedule has been poor. Prolonged hospitalization has brought pt down - Studies Laboratory Data (last 24 hrs) 02/10/24 02/10/24 02/10/24 08:43 08:43 08:43 WBC 9.30 Hgb 10.0 L Hct 29.3 L Plt Count 149 L Sodium 134 L Potassium 4.1 BUN 42 H Creatinine 7.57 H Glucose 96 Phosphorus 4.6 Magnesium Total Bilirubin 0.9 AST 15 ALT 24 Alkaline Phosphatase 88 02/10/24 05:42 WBC Hgb Hct Plt Count Sodium 134 L Potassium 4.0 BUN 40 H Creatinine 7.21 H Glucose 89 Phosphorus 4.2 Magnesium 2.1 Total Bilirubin AST ALT Alkaline Phosphatase Microbiology Data (last 24 hrs): 02/05/24 07:40 Blood - Blood Aerobic Blood Culture - Final No growth in 5 days. 02/05/24 07:40 Blood - Blood Anaerobic Blood Culture - Final No growth in 5 days. 02/05/24 07:51 Blood - Blood Aerobic Blood Culture - Final No growth in 5 days. 02/05/24 07:51 Blood - Blood Anaerobic Blood Culture - Final 02/05/24 07:51 Blood - Blood Gram Stain - Final Medications List Reviewed: Yes Assessment And Plan - Plan 1. End-stage renal disease. Next HD on Monday, qMWF sked. Renal diet. Renally dose medication. No UF. 2. Mild hyponatremia. Will correct with dialysis. 3. Secondary hyperparathyroidism. Continue calcitriol. 4. Orthostatic hypotension, off diuretic. Continue midodrine and Florinef. 5. DM2. Mngt per primary team.
[2024-02-11 05:29] LABS: Absolute Basophils 0.1 K/uL (0-0.5); Absolute Eosinophils 0.2 K/uL (0-0.5); Absolute Lymphocytes (CBC) 1.5 K/uL (0.7-4.9); Absolute Monocytes 0.6 K/uL (0.1-1.3); Absolute Neutrophil 6.6 K/uL (1.8-8.0); Basophils % 1.1 % (0-1.3); Eosinophils % 2.5 % (0-4.4); Hematocrit 27.7 % (39.6-49.0); Hemoglobin 9.5 g/dL (13.6-17.9); Lymphocytes % 16.9 % (15.3-44.8); MCH 31.7 pg (27.0-35.0); MCHC 34.3 g/dL (32.0-36.0); MCV 92.4 fL (80-100); MPV 8.8 fL (7.6-11.3); Monocytes % 6.5 % (3.3-12.3); Nucleated Red Blood Cells % 0.1 % (0-0); Platelets 148 thou/uL (152-406); Red Cell Distribution Width 14.4 % (12.1-15.2)
[2024-02-11 05:44] LABS: Albumin 3.2 g/dL (3.4-5.0); Albumin/Globulin Ratio 0.9 (1.1-1.8); Anion Gap 14.2 mEq/L (5.0-15.0); Bilirubin Total 0.9 mg/dL (0.2-1.0); Globulin 3.6 g/dL (2.3-3.5); Phosphorus 5.1 mg/dL (2.5-4.9); Potassium 4.2 mEq/L (3.5-5.1); Protein, Total 6.8 g/dL (6.4-8.2)
--- NOTE | 2024-02-11 06:14 | P.PN ---
Date of Service: 02/11/24 Subjective Ambulate with PT and nursing due to orthostatic hypotension Review of Systems 10-point ROS negative unless listed in HPI Physical Examination - Vital Signs reviewed - Physical Exam General: Awake, alert,Oriented x3, Obese, no acute distress HEENT: Atraumatic, Normocephalic Neck: Supple Respiratory: Normal air movement, unlabored Cardiovascular: Atrial flutter,Edema (lower extremities) Capillary refill: <2 Seconds Gastrointestinal: Normal bowel sounds Musculoskeletal: No clubbing, moderate to severe deconditioning Integumentary:hemodialysis catheter, right chest wall, pressure dressing, right neck hematoma Neurological: Normal speech, Normal tone, Normal affect Assessment And Plan - Plan Persistent orthostatic hypotension Severe deconditioning Atrial flutter Chronic anticoagulation Angina Recent PCI Wean Levophed, transferred to floor PT/OT in bed Midodrine 5 mg p.o. [address] Dee 02/01 after patient moved to second floor, he was noted to be hypotensive at 60/40. A triple-lumen femoral line was started, patient had CT head which was negative for bleed, Levophed started in ICU. Sandbag applied to left groin secondary to arterial puncture prior to femoral vein placement. No further bleeding from site. 02/02 levophed during dialysis. This am (02/04/24) pt is off levophed but SBP 115. Neurochecks normal recent coronary angiogram during this hospital admission with PCI to OM2 for unstable angina, rapid response was called and patient was found to be hypotensive but no arrhythmia was seen, patient had recent coronary angiogram during this hospital admission with PCI to OM2 for unstable angina, 02/05 stress no induced ischemia noted, cardiology to eval hypotension, repeat echo mild reduced ejection fracture Orthostatic hypotension, PT to eval ambulate patient with assist Florinef added, adjust blood pressure medication, SCDs Bacteremia Leukocytosis resolved 02/05 Gram-positive cocci in clusters x1 bottle, Will order urine cultures, blood cultures IV vancomycin Acute right neck hematoma Cardiorenal syndrome with new onset hemodialysis improved End-stage renal disease and hemodialysis Hyperphosphatemia Hyponatremia improved Microcytic anemia secondary to CKD/end-stage renal disease stable Continue dialysis per Dr. Murdock Continue meds per cardiology, holding parameters for hypotension, consult cardiology - Seen by Dr. Reyes 02/03/24. Stopped Brilinta and started plavix, stopped heparin sq and added Eliquis Patient's labs returned with hyperphosphatemia and elevated troponin, trending down. Coreg held secondary to hypotension. Dr. Reyes decreased Coreg dose to 6.25mg BID from 25mg BID to start today. dialysis 02/03/24 required levophed reinitiation but has since been weaned. Blood oozing at hemodialysis site, continue Eliquis, other anticoagulation held, H&H stable 02/04 Ultrasound of the right neck-right neck hematoma, MPRESSION: A 2.0 cm hypoechoic ovoid structure just caudal to the clavicle, may represent a small hematoma or prominent lymph node. Surgery Dr Diaz reconsulted. To evaluate bleeding hemodialysis catheter, bleeding controlled with pressure dressing, ice CT of the neck no hematoma visualized Diabetes Glucose monitor SSI moderate coverage ADA diet Supplementation report of VTE/GI prophylaxis - Advance Directives Does patient have a Living Will: No Does patient have a Durable POA for Healthcare: No - Code Status/Comfort Care Code Status Assessed: Yes (full) Critical Care: No Time Spent Managing PTS Care (In Minutes): 35 > <Stacey Jerome - Last Filed: 02/11/24 06:35> Patient was seen and examined. Events of the last 24 hours have been noted. Spoke with with JEYSON regarding patient's clinical picture after evaluating and examining the patient independently. I performed a substantial part of the MDM during this patient's care today. I personally made or approved the documented management plan and acknowledge its risk of complications. I agree with the findings and documentation provided in the JEYSON's notes. Patient continues to improve. Patient denies any new complaints. Clinical symptoms are improving. Patient was able to sit up in bed yesterday and eat. He did stand although he did get a little lightheaded but his blood pressure remain with systolic over 100. plan to get to inpatient rehab. <Adolfo Whitten - Last Filed: 02/12/24 09:25>
--- NOTE | 2024-02-11 15:39 | P.PN ---
Subjective Date of Service: 02/11/24 Chief Complaint: NSTEMI Subjective: Other (Bedbound.) Physical Examination - Vital Signs Temperature: 99.0 F Blood Pressure: 140/67 Pulse: 57 Respirations: 12 Pulse Ox (%): 94 - Physical Exam General: Other (chronically ill-appearing) HEENT: Atraumatic, Normocephalic Neck: Supple Respiratory: Other (symmetric chest expansion) Cardiovascular: No rubs, No murmurs Gastrointestinal: Soft and benign Musculoskeletal: No clubbing Integumentary: No warmth Neurological: Normal tone Urinary: Other (no bladder distention) External genitalia: Deferred Rectal: Deferred Other Physical/Emotional Findings: pt is sedate, states he feels down, wants to sleep but cannot. States post prison, his sleep schedule has been poor. Prolonged hospitalization has brought pt down - Studies Laboratory Data (last 24 hrs) 02/11/24 02/11/24 02/11/24 07:19 05:15 05:15 WBC 9.10 Hgb 9.5 L Hct 27.7 L Plt Count 148 L Sodium 134 L Potassium 4.2 BUN 56 H Creatinine 8.81 H Glucose 81 Phosphorus Cancelled 5.1 H Total Bilirubin 0.9 AST 14 L ALT 23 Alkaline Phosphatase 82 Medications List Reviewed: Yes Assessment And Plan - Plan 1. End-stage renal disease. Next HD tomorrow, qMWF sked. Renal diet. Renally dose medication. No UF. 2. Mild hyponatremia. Will correct with dialysis. 3. Secondary hyperparathyroidism. Continue calcitriol. 4. Orthostatic hypotension, off diuretic. Continue midodrine and Florinef. 5. DM2. Mngt per primary team.
[2024-02-12 05:34] LABS: Absolute Basophils 0.1 K/uL (0-0.5); Absolute Eosinophils 0.2 K/uL (0-0.5); Absolute Lymphocytes (CBC) 1.5 K/uL (0.7-4.9); Absolute Monocytes 0.6 K/uL (0.1-1.3); Absolute Neutrophil 6.7 K/uL (1.8-8.0); Basophils % 0.8 % (0-1.3); Eosinophils % 2.4 % (0-4.4); Hematocrit 27.3 % (39.6-49.0); Hemoglobin 9.3 g/dL (13.6-17.9); Lymphocytes % 16.5 % (15.3-44.8); MCH 31.6 pg (27.0-35.0); MCHC 34.1 g/dL (32.0-36.0); MCV 92.7 fL (80-100); MPV 8.5 fL (7.6-11.3); Monocytes % 6.6 % (3.3-12.3); Neutrophils % 73.7 % (41.7-73.7); Platelets 141 thou/uL (152-406); RBC Red Blood Cell Count 2.95 M/uL (4.33-5.43); Red Cell Distribution Width 14.2 % (12.1-15.2)
[2024-02-12 06:06] LABS: Albumin 3.2 g/dL (3.4-5.0); Albumin/Globulin Ratio 0.9 (1.1-1.8); Bilirubin Total 0.7 mg/dL (0.2-1.0); Globulin 3.7 g/dL (2.3-3.5); Phosphorus 5.6 mg/dL (2.5-4.9); Protein, Total 6.9 g/dL (6.4-8.2)
--- NOTE | 2024-02-12 14:41 | PN ---
Date of Progress Note: 02/12/2024 Chief Complaint: Acute on chronic kidney injury, end-stage renal disease, on hemodialysis, congestiv e heart failure, acute coronary syndrome, [id number] myocardial infarction. Subjective: Patient denies chest pain, palpitation. He remains bedbound. Objective: Neck: Supple. No bruits. Lungs: Diminished breath sounds at bases. Few rhonchi. Heart: S1, S2. Abdomen: Soft. Benign. Extremities: Slight edema. Impression And Plan: 1.Acute on chronic kidney injury. Patient has history of diabetic kidney disease with severe protei brittney. He developed acute on chronic kidney injury in setting of cardiorenal syndrome and acute tubu lar necrosis. Renal function has not improved. There is no acute renal function recovery. The latasha ent will continue dialysis on Monday, Monday, Monday for end-stage renal disease. Monitor fluid b alance and adjust ultrafiltration goal according to volemia status. 2.Mild hyponatremia. We will adjust treatment with dialysis to control hyponatremia. 3.Secondary hyperparathyroidism. Continue calcitriol. 4.Orthostatic hypotension. The patient is on diuretic. Continue midodrine and Florinef. 5.Diabetes mellitus with renal manifestation. Continue insulin. EB/MODL Voice ID: [id number] Report ID: [id number]
--- NOTE | 2024-02-12 14:51 | P.PN ---
Subjective Date of Service: 02/12/24 Chief Complaint: NSTEMI Pt is resting comfortably in bed. BP is 119/69 while on midodrine and florinef. Waiting for IPR placeemnt. Pt is doing HD and working with PT. No other complaint. Review of Systems General: Unremarkable Eyes: Unremarkable ENT: Unremarkable Respiratory: Unremarkable Cardiovascular: Unremarkable Gastrointestinal: Unremarkable Genitourinary: Unremarkable Musculoskeletal: Unremarkable Integumentary: Unremarkable Neurological: Unremarkable Lymphatics: Unremarkable Physical Examination - Vital Signs Temperature: 99.4 F Blood Pressure: 146/71 Pulse: 69 Respirations: 16 Pulse Ox (%): 100 - Physical Exam General: Alert, In no apparent distress, Oriented x3 HEENT: Atraumatic, Normocephalic, PERRLA Neck: Supple, 2+ carotid pulse no bruit, JVD not distended Respiratory: Clear to auscultation bilaterally, Normal air movement Cardiovascular: No edema, Normal pulses, Regular rate/rhythm, Normal S1 S2 Capillary refill: <2 Seconds Gastrointestinal: Normal bowel sounds, Soft and benign, Non-distended Musculoskeletal: No clubbing, No swelling, No contractures Integumentary: No rashes, No breakdown, No significant lesion Neurological: Normal gait, Normal speech, Normal strength at 5/5 x4 extr Lymphatics: No axilla or inguinal lymphadenopathy Other Physical/Emotional Findings: pt is sedate, states he feels down, wants to sleep but cannot. States post nursing home, his sleep schedule has been poor. Prolonged hospitalization has brought pt down - Studies Laboratory Data (last 24 hrs) 02/12/24 02/12/24 02/12/24 07:19 05:00 05:00 WBC 9.20 Hgb 9.3 L Hct 27.3 L Plt Count 141 L Sodium 134 L Potassium 4.0 BUN 66 H Creatinine 9.72 H Glucose 83 Phosphorus Cancelled 5.6 H Total Bilirubin 0.7 AST 13 L ALT 21 Alkaline Phosphatase 83 Medications List Reviewed: Yes Assessment And Plan - Plan Persistent orthostatic hypotension Severe deconditioning Atrial flutter Chronic anticoagulation Angina Recent PCI Wean Levophed, transferred to floor PT/OT in bed Midodrine 5 mg p.o. [address] Dee 02/01 after patient moved to second floor, he was noted to be hypotensive at 60/40. A triple-lumen femoral line was started, patient had CT head which was negative for bleed, Levophed started in ICU. Sandbag applied to left groin secondary to arterial puncture prior to femoral vein placement. No further bleeding from site. 02/02 levophed during dialysis. This am (02/04/24) pt is off levophed but SBP 115. Neurochecks normal recent coronary angiogram during this hospital admission with PCI to OM2 for unstable angina, rapid response was called and patient was found to be hypotensive but no arrhythmia was seen, patient had recent coronary angiogram during this hospital admission with PCI to OM2 for unstable angina, 02/05 stress no induced ischemia noted, cardiology to eval hypotension, repeat echo mild reduced ejection fracture Orthostatic hypotension, PT to eval ambulate patient with assist Continue florinef / midodrine and monitor BP. Bacteremia Leukocytosis resolved 02/05 Gram-positive cocci in clusters x1 bottle. Continue iv vanc. F/u urine and blood cx. Acute right neck hematoma Cardiorenal syndrome with new onset hemodialysis improved End-stage renal disease and hemodialysis Hyperphosphatemia Hyponatremia improved Microcytic anemia secondary to CKD/end-stage renal disease stable Continue dialysis per Dr. Murdock Continue meds per cardiology, holding parameters for hypotension, consult ca rdiology - Seen by Dr. Reyes 02/03/24. Stopped Brilinta and started plavix, stopped heparin sq and added Eliquis Patient's labs returned with hyperphosphatemia and elevated troponin, trending down. Coreg held secondary to hypotension. Dr. Reyes decreased Coreg dose to 6.25mg BID from 25mg BID to start today. dialysis 02/03/24 required levophed reinitiation but has since been weaned. Blood oozing at hemodialysis site, continue Eliquis, other anticoagulation held, H&H stable 02/04 Ultrasound of the right neck-right neck hematoma, MPRESSION: A 2.0 cm hypoechoic ovoid structure just caudal to the clavicle, may represent a small hematoma or prominent lymph node. Surgery Dr Diaz reconsulted. To evaluate bleeding hemodialysis catheter, bleeding controlled with pressure dressing, ice CT of the neck no hematoma visualized Diabetes Glucose monitor SSI moderate coverage ADA diet Supplementation report of VTE/GI prophylaxis Dispo: Pending hospital course. Waiting for inpatient rehab placement.
[2024-02-12] MEDS ORDERED: ENSURE MAX PROTEIN 330 ML LIQUID PO SCH (16:00)
[2024-02-12] MEDS: ENSURE HIGH PROTEIN 237 ML CAN PO SCH (21:47)
[2024-02-13 05:08] LABS: Absolute Basophils 0.1 K/uL (0-0.5); Absolute Eosinophils 0.2 K/uL (0-0.5); Absolute Lymphocytes (CBC) 1.3 K/uL (0.7-4.9); Absolute Monocytes 0.6 K/uL (0.1-1.3); Absolute Neutrophil 7.7 K/uL (1.8-8.0); Basophils % 0.7 % (0-1.3); Eosinophils % 2.2 % (0-4.4); Hemoglobin 10.4 g/dL (13.6-17.9); MCH 31.7 pg (27.0-35.0); MCHC 34.5 g/dL (32.0-36.0); MCV 91.9 fL (80-100); MPV 9.2 fL (7.6-11.3); Neutrophils % 78.1 % (41.7-73.7); Nucleated Red Blood Cells % 0.1 % (0-0); Platelets 92 thou/uL (152-406); RBC Red Blood Cell Count 3.27 M/uL (4.33-5.43); Red Cell Distribution Width 14.2 % (12.1-15.2)
[2024-02-13 05:38] LABS: Albumin 3.4 g/dL (3.4-5.0); Albumin/Globulin Ratio 0.9 (1.1-1.8); Anion Gap 12.8 mEq/L (5.0-15.0); Bilirubin Total 0.7 mg/dL (0.2-1.0); Globulin 3.9 g/dL (2.3-3.5); Phosphorus 3.9 mg/dL (2.5-4.9); Potassium 3.8 mEq/L (3.5-5.1); Protein, Total 7.3 g/dL (6.4-8.2)
[2024-02-13 07:46] LABS: Blood Morphology Comment NOT SEEN (NOT SEEN); Platelet Estimate DECR; White Blood Cell Scan OK (OK)
[2024-02-13] MEDS: NA CHLORIDE 0.9% 250 ML IV ONE (09:55)
--- NOTE | 2024-02-13 12:06 | PN ---
Date of Progress Note: 02/13/2024 Subjective: The patient was admitted to the hospital with orthostatic hypotension. The patient was started on stocking socks, midodrine, and Florinef. The patient still feeling dizzy. Objective: Vital Signs: Blood pressure 128/69, pulse of 67, afebrile. Chest: Clear to auscultation. Heart: S1, S2. Regular. Abdomen: Soft, nontender. Extremity: No edema. Neurologic: Alert. No focality. Laboratory Data: Hemoglobin 10.4, sodium 134, potassium 3.8, bicarb 24, BUN 55, creatinine 7.1, calc ium 9, phosphorus 3.9, albumin 3.4. Current Medications: The patient on include midodrine 5 t.i.d., promethazine, Plavix 75, atorvastati n, carvedilol 3.125, Renvela, calcitriol. Assessment And Plan: 1.End-stage renal disease. We will continue the patient on dialysis. I am going to dialyze the pat ient tomorrow, but I am not going to take any fluid and we will monitor the patient. I will give the patient a bolus of 250. 2.Hypertension, currently orthostatic, as above. We are not going to ultrafiltrate. We will start the patient on Florinef and we will watch for the response. We will give the bolus. Keep holding bl ood pressure medication. 3.Anemia of chronic kidney disease, stable. 4.Hyponatremia, dilutional. We will follow up. 5.Diabetes, as by Primary. LISA/QUIANA Voice ID: [id number] Report ID: [id number]
--- NOTE | 2024-02-13 12:27 | P.PN ---
Subjective Date of Service: 02/13/24 Chief Complaint: NSTEMI, cardiorenal syndrome, acute renal failure Subjective: No new changes (Remains orthostatically hypotensive, continues to have trouble with PT secondary to orthostatic hypotension) <Ayesha Nguyen - Last Filed: 02/13/24 12:21> Date of Service: 02/13/24 <Dalila Adan Deepti - Last Filed: 02/13/24 13:03> Review of Systems 10-point ROS is otherwise unremarkable General: Weakness Neurological: As per HPI (Admits to some depressed mood secondary to prolonged illness. Remains dizzy when not supine) <Ayesha Nguyen - Last Filed: 02/13/24 12:21> Physical Examination - Vital Signs Temperature: 97.0 F Blood Pressure: 128/69 Pulse: 67 Respirations: 16 Pulse Ox (%): 94 - Physical Exam General: In no apparent distress, Oriented x3, Obese HEENT: Atraumatic, Normocephalic Neck: Supple Respiratory: Normal air movement Cardiovascular: Regular rate/rhythm, Edema (Mild) Capillary refill: <2 Seconds Gastrointestinal: Soft and benign Musculoskeletal: No clubbing Integumentary: No rashes Neurological: Normal affect, Abnormal strength Lymphatics: No axilla or inguinal lymphadenopathy External genitalia: Deferred Rectal: Deferred Other Physical/Emotional Findings: pt is sedate, states he feels down, wants to sleep but cannot. States post alf, his sleep schedule has been poor. Prolonged hospitalization has brought pt down, continued depressed mood, positive orthostatic hypotension, dialysis yesterday on 02/12/2024 - Studies Laboratory Data (last 24 hrs) 02/13/24 02/13/24 02/13/24 07:19 04:16 04:16 WBC 9.80 Hgb 10.4 L D Hct 30.0 L Plt Count 92 L D Sodium 134 L Potassium 3.8 BUN 55 H Creatinine 7.10 H Glucose 99 Phosphorus Cancelled 3.9 Total Bilirubin 0.7 AST 23 ALT 35 Alkaline Phosphatase 94 Medications List Reviewed: Yes <NguyenAyesha Whatley - Last Filed: 02/13/24 12:21> - Studies Laboratory Data (last 24 hrs) 02/13/24 02/13/24 02/13/24 07:19 04:16 04:16 WBC 9.80 Hgb 10.4 L D Hct 30.0 L Plt Count 92 L D Sodium 134 L Potassium 3.8 BUN 55 H Creatinine 7.10 H Glucose 99 Phosphorus Cancelled 3.9 Total Bilirubin 0.7 AST 23 ALT 35 Alkaline Phosphatase 94 <Dalila Adan Deepti - Last Filed: 02/13/24 13:03> Assessment And Plan - Plan - Plan Orthostatic hypotension with syncope Teds PT/OT in bed IV initiated and labs sent Midodrine 5 mg p.o. 3 times daily Neurochecks every 4h Consult Dr. Dee 02/01 after patient moved to second floor, he was noted to be hypotensive at 60/40. A triple-lumen femoral line was started, patient had CT head which was negative for bleed, Levophed started in ICU. Sandbag applied to left groin secondary to arterial puncture prior to femoral vein placement. No further bleeding from site. 02/02 levophed during dialysis. This am (02/04/24) pt is off levophed but SBP 115. Neurochecks normal 02/13/24 patient continues to have orthostatic hypotension. working with PT while sitting, systolic blood pressure 100, patient did transfer from sitting to wheelchair and stated he felt like he was going to pass out Cardiorenal syndrome with new onset hemodialysis Recent PCI Continue dialysis per Dr. Murdock, most recent dialysis 02/12/2024 (took 1 L) Continue meds per cardiology, holding parameters for hypotension, consult cardiology - Seen by Dr. Reyes 02/03/24. Stopped Brilinta and started plavix, stopped heparin sq and added Eliquis. Medication regimen is the same 02/12/2024 Carvedilol again decreased to 3.125 mg p.o. twice daily on 02/06/2024 Diabetes Glucose monitor SSI moderate coverage ADA diet VTE/GI prophylaxis - Advance Directives Does patient have a Living Will: No Does patient have a Durable POA for Healthcare: No Time Spent Managing PTS Care (In Minutes): 24 <Ayesha Nguyen - Last Filed: 02/13/24 12:21> - Plan Pt seen and examined. I agree with the note by the HYDRAULIC MODELING ENGINEER. Pt has been feeling very weak to walk with PT due to orthostatic hypotension. I encouraged him to walk with PT. Waiting for inpatient rehab placement. Continue meds for chronic medical problems. <Dalila Adan - Last Filed: 02/13/24 13:03>
--- NOTE | 2024-02-14 09:47 | P.DS ---
Admission Date: 02/02/24 Discharge Date: 02/14/24 Reason for Admission: NSTEMI, cardiorenal syndrome, acute renal failure Consultations: Dr. Reyes and Dr. Murdock Procedures: Hemodialysis Brief History of Present Illness: Mr. Friedman is a 68-year-old gentleman with a recent hospitalization for cardiorenal syndrome with ARLENE. During his hospitalization he underwent left cardiac cath with PCI per Dr. Reyes, hemodialysis was initiated per Dr. Murdock. He had a prolonged hospital course secondary to difficulty managing electrolyte/fluid balances with resultant nausea and diarrhea. C. difficile was negative. The patient did slowly improve and was discharged to inpatient rehab 2 to 3 days ago. A rapid response was called on the fifth floor, when I entered the room Mr. Ashford was supine, hypotensive, and poorly responsive. PT had placed teds and placed patient supine prior to my arrival and his blood pressure responded from a systolic in the 70s to systolic in the 90s. Sternal rub resulted in Mr. Friedman arousing enough to carry on conversation, he spoke with his , admits to nausea, generalized weakness, and mild dizziness. Dr. Dee was contacted per patient's primary nurse. The patient was given midodrine around 7 AM and this dose will be repeated. Peripheral IV was started in the right wrist x 1 attempt and patient will be transferred to inpatient unit when bed available. Currently his pressure is 98/58, heart rate 74, pulse ox 94 on room air, responsive to verbal stimuli. Dr. Dee at bedside Hospital Course: Mr. Friedman is a 68-year-old gentleman who presented to the hospital initially (01/18/24) for cardiorenal failure. He underwent left heart cath with PCI and continue treatment for his initial complaint. His kidneys did not recover and he underwent placement of a dialysis catheter. He improved enough to work with PT and was moved to inpatient rehab for further physical therapy and strengthening on 01/31/24. Unfortunately after only a couple of days in inpatient rehab he had significant orthostatic hypotension and necessitated readmission on 02/02/24. He was placed on a Levophed drip temporarily to allow for further dialysis. Levophed was weaned and he has been taking midodrine 3 times daily to help with his blood pressure. He has been unable to work with PT successfully secondary to dizziness and severe orthostatic hypotension. Teds have been placed, midodrine has been increased, blood pressure medications have been significantly decreased or held, and the patient was started on Florinef. At this time he still has significant dizziness and is unable to work with PT. It was decided he is medically cleared for SNF placement for further attempts with hemostasis and PT/strengthening to precede inpatient rehab. He will cont inue with HD Mon/Mon/Fridays. <Ayesha Nguyen - Last Filed: 02/14/24 10:48> Admission Date: 02/02/24 Discharge Date: 02/14/24 Hospital Course: Pt seen and examined. I agree with the note by the BARBER TOOL SHARPENER. Ok to discharge pt to [facility]. Continue florinef, midodrine, other home meds and wear compression stoc kings. Will transition to rehab when stronger. <Dalila Adan - Last Filed: 02/14/24 13:47> Disposition: TRANSFER TO SNF - REHAB Discharge Condition: FAIR Vital Signs/Physical Exam: Temp Pulse Resp BP Pulse Ox 97.6 F 68 18 133/54 L 97 02/14/24 04:00 02/14/24 04:00 02/14/24 04:00 02/14/24 04:00 02/14/24 04:00 General: In no apparent distress, Oriented x3, Obese HEENT: Atraumatic, Normocephalic Neck: Supple Respiratory: Normal air movement Cardiovascular: Regular rate/rhythm, Normal S1 S2, Edema Capillary refill: <2 Seconds Gastrointestinal: Soft and benign Musculoskeletal: No clubbing Integumentary: No rashes Neurological: Other (Orthostatic hypotension with dizziness, generalized weakness) Lymphatics: No axilla or inguinal lymphadenopathy External genitalia: Deferred Rectal: Deferred Other Physical/Emotional Findings: pt is sedate, states he feels down. States post prison, his sleep schedule has been poor. Prolonged hospitalization has brought pt down, continued depressed mood, positive orthostatic hypotension, dialysis yesterday on 02/12/2024, with have dialysis without ultrafiltration and no fluid reduction. Pt has been accepted to [facility] for continued rehab Laboratory Data at Discharge: WBC 9.80 thou/uL (4.3-10.9) 02/13/24 04:16 Hgb 10.4 g/dL (13.6-17.9) L D 02/13/24 04:16 Hct 30.0 % (39.6-49.0) L 02/13/24 04:16 Plt Count 92 thou/uL (152-406) L D 02/13/24 04:16 Sodium 134 mEq/L (136-145) L 02/13/24 04:16 Potassium 3.8 mEq/L (3.5-5.1) 02/13/24 04:16 BUN 55 mg/dL (7-18) H 02/13/24 04:16 Creatinine 7.10 mg/dL (0.70-1.30) H 02/13/24 04:16 Glucose 99 mg/dL (74-106) 02/13/24 04:16 Phosphorus Cancelled 02/13/24 07:19 Magnesium 2.1 mg/dL (1.6-2.4) 02/10/24 05:42 Total Bilirubin 0.7 mg/dL (0.2-1.0) 02/13/24 04:16 AST 23 U/L (15-37) 02/13/24 04:16 ALT 35 U/L (16-61) 02/13/24 04:16 Alkaline Phosphatase 94 U/L (45-117) 02/13/24 04:16 <Nguyen,Ayesha Chacorta - Last Filed: 02/14/24 10:48> Vital Signs/Physical Exam: Temp Pulse Resp BP Pulse Ox 98.5 F 68 16 133/70 97 02/14/24 08:00 02/14/24 08:00 02/14/24 08:00 02/14/24 08:00 02/14/24 08:00 Laboratory Data at Discharge: WBC 9.80 thou/uL (4.3-10.9) 02/13/24 04:16 Hgb 10.4 g/dL (13.6-17.9) L D 02/13/24 04:16 Hct 30.0 % (39.6-49.0) L 02/13/24 04:16 Plt Count 92 thou/uL (152-406) L D 02/13/24 04:16 Sodium 134 mEq/L (136-145) L 02/13/24 04:16 Potassium 3.8 mEq/L (3.5-5.1) 02/13/24 04:16 BUN 55 mg/dL (7-18) H 02/13/24 04:16 Creatinine 7.10 mg/dL (0.70-1.30) H 02/13/24 04:16 Glucose 99 mg/dL (74-106) 02/13/24 04:16 Phosphorus Cancelled 02/13/24 07:19 Magnesium 2.1 mg/dL (1.6-2.4) 02/10/24 05:42 Total Bilirubin 0.7 mg/dL (0.2-1.0) 02/13/24 04:16 AST 23 U/L (15-37) 02/13/24 04:16 ALT 35 U/L (16-61) 02/13/24 04:16 Alkaline Phosphatase 94 U/L (45-117) 02/13/24 04:16 <Dalila Adan - Last Filed: 02/14/24 13:47> Diet: Renal Activity: Fall precautions <Nguyen,Ayesha Chacorta - Last Filed: 02/14/24 10:48> <Dalila Adan - Last Filed: 02/14/24 13:47> Home Medications: Insulin Glargine,Hum.rec.anlog [Jul[facility]] 12 unit SQ BEDTIME 01/30/23 Atorvastatin Calcium [Lipitor] 40 mg PO BEDTIME 30 Days #30 tab 01/22/24 Aspirin 81 mg PO DAILY 02/01/24 Calcitrol [Rocaltrol*] 1 tab PO Q48H 02/01/24 Atorvastatin Calcium [Lipitor] 40 mg PO BEDTIME 02/02/24 Docusate/Senna [Senokot-S*] 2 tab PO BEDTIME PRN 02/02/24 Melatonin [Melatonin*] 3 mg PO BEDTIME PRN 02/02/24 Apixaban [Eliquis] 5 mg PO BID 02/14/24 Atorvastatin Calcium [Lipitor] 40 mg PO BEDTIME tab 02/14/24 Calcitrol [Rocaltrol*] 0.25 mcg PO Q48H cap 02/14/24 Citalopram [Celexa*] 20 mg PO DAILY 02/14/24 Clopidogrel Bisulfate [Plavix*] 75 mg PO DAILY 02/14/24 Fludrocortisone [Florinef *] 0.1 mg PO BID #0 tab 02/14/24 Lactose-Reduced Food [Boost High Protein] 237 ml PO BID #120 bottle 02/14/24 Midodrine HCl 10 mg PO TID PRN #30 tab 02/14/24 Midodrine HCl [Proamatine*] 5 mg PO TID@0600,1200,1700 tab 02/14/24 carvediloL [Coreg*] 3.125 mg PO BID 6AM 6PM tab 02/14/24 New Medications: Lactose-Reduced Food [Boost High Protein] 237 ml PO BID #120 bottle Midodrine HCl 10 mg PO TID PRN #30 tab PRN Reason: hypotension Physician Discharge Instructions: Mr. Friedman is a 68-year-old gentleman who presented to the hospital initially for cardiorenal failure. He underwent left heart cath with PCI and continue treatment for his initial complaint. His kidneys did not recover and he underwent placement of a dialysis catheter. He improved enough to work with PT and was moved to inpatient rehab for further physical therapy and strengthening. Unfortunately after only a couple of days and inpatient rehab he had significant orthostatic hypotension and necessitated readmission. He was placed on a Levophed drip temporarily to allow for further dialysis. Levophed was weaned and he has been taking midodrine 3 times daily to help with his blood pressure. He has been unable to work with PT successfully secondary to dizziness and severe orthostatic hypotension. Teds have been placed, midodrine has been increased, blood pressure medications have been significantly decreased or held, and the patient was started on Florinef. At this time he still has significant dizziness and is unable to work with PT. It was decided he is medically cleared for SNF placement for further attempts with hemostasis and PT/strengthening to precede inpatient rehab Followup: Sherrie Murdock MD [ACTIVE - CAN ADMIT] - Cristo Reyes MD [ACTIVE - CAN ADMIT] - OSMAN RAINEY [Primary Care Provider] -
[2024-02-14] MEDS: NA CHLORIDE 0.9% 250 ML IV SCH ×2 (12:30→15:46)
[2024-02-14 14:32] VITALS: O2SAT 97
[2024-02-14 15:02] VITALS: BP 165/79; TEMP 97.2
--- NOTE | 2024-02-14 17:27 | PN ---
Date of Progress Note: 02/14/2024 Subjective: The patient was admitted to the hospital from the rehab because of orthostatic. The pat ient received dialysis yesterday, on stocking socks, feeling better today. Objective: Vital Signs: Blood pressure 133/70, pulse of 68. Chest: Clear to auscultation. Heart: S1, S2. Regular. Abdomen: Morbidly obese. Could not appreciate any organomegaly. Extremities: No edema. Neurologic: Alert. No focality. Laboratory Data: Hemoglobin 10.4, sodium 134, potassium 3.8, bicarb 24, BUN 55, creatinine 7, calciu m 9, phosphorus 3.9. Current Medications: The patient on, include midodrine, promethazine, Eliquis, carvedilol 3.125, [place] rvastatin, Renvela, pantoprazole. Assessment And Plan: 1.End-stage renal disease, looked to me still on the dry side. I am going to continue dialysis. We are not going to challenge the patient. We are not going to ultrafiltrate. I am going to give the patient another bolus today and we will follow up the patient. 2.Hypertension, controlled, optimal. Continue midodrine. Keep holding blood pressure medication. We will bolus the patient. 3.Orthostatic hypotension secondary to neuropathy. Continue stocking socks. Continue midodrine. 4.Diabetes, as by Primary. 5.Deconditioning. Continue PT, OT. LISA/QUIANA Voice ID: [id number] Report ID: [id number]
== END 2024-02-14 18:13 | DRG 280 ==
LOC: 2ND 14:05 → 3RD-ICU 14:09 → 2ND 02-04 14:39
PROVIDERS: ADMIT Hospitalist; ATTEND Hospitalist
PROC: 3E043XZ Introduction of Vasopressor into Central Vein, Percutaneous Approach (ICD-10-PCS; principal; 2024-02-02)
PROC: 06HY33Z Insertion of Infusion Device into Lower Vein, Percutaneous Approach (ICD-10-PCS; 2024-02-02)
PROC: 5A1D70Z Performance of Urinary Filtration, Intermittent, Less than 6 Hours Per Day (ICD-10-PCS; 2024-02-02)
DX: I95.1 Orthostatic hypotension (principal); I50.33 Acute on chronic diastolic (congestive) heart failure; I21.A1 Myocardial infarction type 2; N18.6 End stage renal disease; R57.1 Hypovolemic shock; N17.0 Acute kidney failure with tubular necrosis; I13.2 Hypertensive heart and chronic kidney disease with heart failure and with stage 5 chronic kidney disease, or end stage renal disease; E87.1 Hypo-osmolality and hyponatremia; I25.110 Atherosclerotic heart disease of native coronary artery with unstable angina pectoris; R78.81 Bacteremia; N25.81 Secondary hyperparathyroidism of renal origin; I48.92 Unspecified atrial flutter; M86.10 Other acute osteomyelitis, unspecified site; E11.69 Type 2 diabetes mellitus with other specified complication; E11.22 Type 2 diabetes mellitus with diabetic chronic kidney disease; D63.1 Anemia in chronic kidney disease; D50.9 Iron deficiency anemia, unspecified; L89.152 Pressure ulcer of sacral region, stage 2; E78.5 Hyperlipidemia, unspecified; I48.91 Unspecified atrial fibrillation; E66.9 Obesity, unspecified; G62.9 Polyneuropathy, unspecified; E83.39 Other disorders of phosphorus metabolism; D72.829 Elevated white blood cell count, unspecified; S10.93XA Contusion of unspecified part of neck, initial encounter; S31.134A Puncture wound of abdominal wall without foreign body, left lower quadrant without penetration into peritoneal cavity, initial encounter; Z99.2 Dependence on renal dialysis; Z79.4 Long term (current) use of insulin; Z79.82 Long term (current) use of aspirin; Z74.01 Bed confinement status; Z68.37 Body mass index [BMI] 37.0-37.9, adult; Z79.01 Long term (current) use of anticoagulants; Z79.02 Long term (current) use of antithrombotics/antiplatelets; Z90.49 Acquired absence of other specified parts of digestive tract; Z79.899 Other long term (current) drug therapy
CPT/HCPCS: 36415; 70491; 71046; 76882; 78452; 80053; 80069; 80202; 82533; 82550; 82728; 82947; 83540; 83735; 84100; 84145; 84443; 84484; 85014; 85018; 85025; 87040; 87205; 90935; 93017; 93306; 93880; 94760; 97110; 97161; 97165; 97530; A4216; A9500; J1644; J2150; J2470; J2550; J2785; J7030; J7040; J7050; P9047; Q9967

== ENCOUNTER 2024-10-10 05:56 | Emergency (ER) | payer OTHER ==
[2024-10-10] MEDS ORDERED: ONDANSETRON 4 MG (ODT) TAB ONE (06:14)
[2024-10-10] MEDS ORDERED: HYDROCODONE/APAP 5/325 MG TAB ONE (06:14)
--- NOTE | 2024-10-10 07:12 | EDPHYS ---
Physician Documentation [facility] Name: Sabra Rodriguez Jr Age: 68 yrs Sex: Male : 1955 Arrival Date: 10/10/2024 Time: 05:56 Bed 6 Private MD: ED Physician Troy Higginbotham HPI: 10/10 06:04 This 68 yrs old Male presents to ER via Unassigned with complaints of Head sp4 Injury-Adult. 06:17 Six 8-year-old male with history of end-stage renal disease on hemodialysis , daily sp4 aspirin, presents with acute fall at home, injury to the posterior part of the head and headache. Denied LOC. 06:23 Patient attends hemodialysis at [facility] every Monday. Last hemodialysis sp4 yesterday on Monday. Patient's physician Dr. Juarez . Historical: - Allergies: 06:15 No Known Allergies; vc1 - PMHx: 06:15 Diabetes - NIDDM; Hypertension; Vision problems; Kidney disease; vc1 - PSHx: 06:15 Appendectomy; Cholecystectomy; right arm fistula; vc1 - Immunization history:: Client reports having NOT received the Covid vaccine. Flu vaccine is up to date. - Infectious Disease History:: Denies. - Social history:: Smoking status: Patient denies any tobacco usage or history of. - Family history:: not pertinent. ROS: 06:17 Constitutional: Negative for fever, chills, and weight loss, positive acute fall, sp4 positive acute posterior headache, positive for feeling unwell 06:17 All other systems are negative, Exam: 06:23 Constitutional: Patient is physically deconditioned male, overweight, left chest wall sp4 hemodialysis permacath. Left upper arm maturing hemodialysis fistula. Head/Face: Normocephalic, atraumatic. There is no contusion, no hematoma, no laceration. Eyes: Pupils equal round and reactive to light, extra-ocular motions intact. Lids and lashes normal. Conjunctiva and sclera are not injected. Cornea within normal limits. Periorbital areas with no swelling, redness, or edema. ENT: Nares patent. No nasal discharge, no septal abnormalities noted. Tympanic membranes are normal and external auditory canals are clear. Oropharynx with no redness, swelling, or masses, exudates, or evidence of obstruction, uvula midline. Mucous membranes moist. Neck: Trachea midline, no thyromegaly or masses palpated, and no cervical lymphadenopathy. Supple, full range of motion without nuchal rigidity, or vertebral point tenderness. Chest/axilla: Normal chest wall appearance and motion. Nontender with no deformity. No lesions are appreciated. Cardiovascular: Regular rate and rhythm with a normal S1 and S2. No gallops, murmurs, or rubs. Normal PMI, no JVD. No pulse deficits. Respiratory: Lungs have equal breath sounds bilaterally, clear to auscultation and percussion. No rales, rhonchi or wheezes noted. No increased work of breathing, no retractions or nasal flaring. Abdomen/GI: Soft, with normal bowel sounds. No distension or tympany. No guarding or rebound. No evidence of tenderness throughout. Back: No spinal tenderness. No costovertebral tenderness. Skin: Warm, dry with normal turgor. Normal color with no rashes, no lesions, and no evidence of cellulitis. MS/ Extremity: Pulses equal, no cyanosis. Neurovascular intact. Full, normal range of motion. Neuro: Awake and alert, GCS 15, oriented to person, place, time, and situation. Cranial nerves II-XII grossly intact. Motor strength 5/5 in all extremities. Sensory grossly intact. Psych: Awake, alert, with orientation to person, place and time. Behavior, mood, and affect are within normal limits Vital Signs: 06:13 BP 136 / 76; Pulse 92; Resp 16; Temp 97.9; Pulse Ox 100% ; Weight 97.98 kg; Height 5 vc1 ft. 4 in. ; Pain 4/10; 06:57 BP 118 / 82; Pulse 87; Resp 18; Temp 97.9; Pulse Ox 100% ; Pain 2/10; bm8 07:33 BP 117 / 80; Pulse 88; Resp 15; Pulse Ox 99% ; bp 06:13 Body Mass Index 37.08 (97.98 kg, 162.56 cm) vc1 06:13 Pain Scale: Adult vc1 06:57 Pain Scale: Adult bm8 [place] Coma Score: 06:13 Eye Response: spontaneous(4). Motor Response: obeys commands(6). Verbal Response: vc1 oriented(5). Total: 15. 06:18 Eye Response: spontaneous(4). Motor Response: obeys commands(6). Verbal Response: bm8 oriented(5). Total: 15. 06:23 Eye Response: spontaneous(4). Motor Response: obeys commands(6). Verbal Response: sp4 oriented(5). Total: 15. 06:27 Eye Response: spontaneous(4). Motor Response: obeys commands(6). Verbal Response: sp4 oriented(5). Total: 15. 06:57 Eye Response: spontaneous(4). Motor Response: obeys commands(6). Verbal Response: bm8 oriented(5). Total: 15. MDM: 06:10 Medical Screening Exam initiated sp4 06:27 Differential diagnosis: Contusion of Hematoma on Laceration of Intracranial bleed- sp4 Concussion cerebral contusion. Data reviewed: vital signs, nurses notes, old medical records, radiologic studies, CT scan. 10/10 06:10 Order name: CT Head Brain wo Cont sp4 Administered Medications: 06:16 Drug: HYDROcodone-acetaminophen PO 5 mg-325 mg 1 tabs PO once Route: PO; bm8 07:34 Follow up: Response: No adverse reaction bp 06:16 Drug: Ondansetron PO 4 mg PO once Route: PO; bm8 07:34 Follow up: Response: No adverse reaction bp Disposition Summary: 10/10/24 07:12 Discharge Ordered Notes: Location: Home sp4 Problem: new sp4 Symptoms: have improved sp4 Condition: Stable sp4 Diagnosis - Acute head injury, acute posterior scalp contusion sp4 Followup: sp4 - With: Gary Shannon MD - When: 7 - 10 days - Reason: Recheck today's complaints Discharge Instructions: - Discharge Summary Sheet sp4 - Head Injury, Adult, [id number] sp4 Forms: - Patient Portal Instructions sp4 Signatures: Dispatcher [employer] EDMS Leonarda Bonds RN RN Troy Rizzo MD MD sp4 [place] RN RN bm8 Mario Iniguez RN bp Corrections: (The following items were deleted from the chart) 06:10 06:10 Head Brain Wo Cont+CT.RAD.BRZ ordered. EDMS EDMS
--- NOTE | 2024-10-10 07:12 | ER ---
Nurse's Notes [facility] Name: Sabra Rodriguez Jr Age: 68 yrs Sex: Male : 1955 Arrival Date: 10/10/2024 Time: 05:56 Bed 6 Private MD: Diagnosis: Acute head injury, acute posterior scalp contusion Presentation: 10/10 06:13 Chief complaint: Patient states: fell out of wheelchair and hit head. Coronavirus vc1 screen: Client denies travel out of the [place] in the last 14 days. At this time, the client does not indicate any symptoms associated with coronavirus-19. Ebola Screen: Patient negative for fever greater than or equal to 101.5 degrees Fahrenheit, and additional compatible Ebola Virus Disease symptoms Patient denies exposure to infectious person. Patient denies travel to an Ebola-affected area in the 21 days before illness onset. No symptoms or risks identified at this time. Mechanism of Injury: resulted from wheel chair. Initial Sepsis Screen: Does the patient meet any 2 criteria? No. Patient's initial sepsis screen is negative. Does the patient have a suspected source of infection? No. Patient's initial sepsis screen is negative. Risk Assessment: Do you want to hurt yourself or someone else? Patient reports no desire to harm self or others. 06:13 Method Of Arrival: Wheelchair vc1 06:13 Acuity: KRISTINA 3 vc1 Triage Assessment: 06:16 General: Appears in no apparent distress. comfortable, Behavior is calm, cooperative, bm8 appropriate for age. Pain: Complains of pain in scalp Pain currently is 4 out of 10 on a pain scale. EENT: No deficits noted. No signs and/or symptoms were reported regarding the EENT system. Neuro: No deficits noted. Level of Consciousness is awake, alert, obeys commands, Oriented to person, place, time, situation, Appropriate for age Reports headache occipital area. Cardiovascular: No deficits noted. Cardiovascular: Capillary refill < 3 seconds in bilateral fingers Patient's skin is warm and dry. Respiratory: Airway is patent Respiratory effort is even, unlabored, Respiratory pattern is regular, symmetrical. GI: No signs and/or symptoms were reported involving the gastrointestinal system. : No signs and/or symptoms were reported regarding the genitourinary system. Derm: No signs and/or symptoms reported regarding the dermatologic system. Musculoskeletal: No signs and/or symptoms reported regarding the musculoskeletal system. Historical: - Allergies: 06:15 No Known Allergies; vc1 - PMHx: 06:15 Diabetes - NIDDM; Hypertension; Vision problems; Kidney disease; vc1 - PSHx: 06:15 Appendectomy; Cholecystectomy; right arm fistula; vc1 - Immunization history:: Client reports having NOT received the Covid vaccine. Flu vaccine is up to date. - Infectious Disease History:: Denies. - Social history:: Smoking status: Patient denies any tobacco usage or history of. - Family history:: not pertinent. Screenin:16 [facility] ED Fall Risk Assessment (Adult) History of falling in the last 3 months, vc1 including since admission Yes- physiologic fall (2 pts) Confusion or Disorientation No (0 pts) Intoxicated or Sedated No (0 pts) Impaired Gait No (0 pts) Mobility Assist Device Used No (0 pt) Altered Elimination No (0 pt) Score/Fall Risk Level 0 - 2 = Low Risk Oriented to surroundings, Maintained a safe environment, Educated pt \T\ family on fall prevention, incl call for assistance when getting out of bed, Hourly rounding (assess needs \T\ fall precautionary measures) done. Abuse screen: Denies threats or abuse. Nutritional screening: No deficits noted. Tuberculosis screening: No symptoms or risk factors identified. Assessment: 06:18 Reassessment: see triage assessment. bm8 06:57 Reassessment: Patient appears in no apparent distress at this time. Patient and/or bm8 family updated on plan of care and expected duration. Pain level reassessed. Patient is alert, oriented x 3, equal unlabored respirations, skin warm/dry/pink. Patient states feeling better. Patient states symptoms have improved. Vital Signs: 06:13 BP 136 / 76; Pulse 92; Resp 16; Temp 97.9; Pulse Ox 100% ; Weight 97.98 kg; Height 5 vc1 ft. 4 in. ; Pain 4/10; 06:57 BP 118 / 82; Pulse 87; Resp 18; Temp 97.9; Pulse Ox 100% ; Pain 2/10; bm8 07:33 BP 117 / 80; Pulse 88; Resp 15; Pulse Ox 99% ; bp 06:13 Body Mass Index 37.08 (97.98 kg, 162.56 cm) vc1 06:13 Pain Scale: Adult vc1 06:57 Pain Scale: Adult bm8 [place] Coma Score: 06:13 Eye Response: spontaneous(4). Motor Response: obeys commands(6). Verbal Response: vc1 oriented(5). Total: 15. 06:18 Eye Response: spontaneous(4). Motor Response: obeys commands(6). Verbal Response: bm8 oriented(5). Total: 15. 06:23 Eye Response: spontaneous(4). Motor Response: obeys commands(6). Verbal Response: sp4 oriented(5). Total: 15. 06:27 Eye Response: spontaneous(4). Motor Response: obeys commands(6). Verbal Response: sp4 oriented(5). Total: 15. 06:57 Eye Response: spontaneous(4). Motor Response: obeys commands(6). Verbal Response: bm8 oriented(5). Total: 15. ED Course: 06:00 Patient arrived in ED. gm2 06:04 Troy Higginbotham MD is Attending Physician. sp4 06:13 Stefany Caruso RN is Primary Nurse. kd3 06:15 Triage completed. vc1 06:16 Arm band placed on right wrist. vc1 06:18 Patient has correct armband on for positive identification. Bed in low position. Side bm8 rails up X 1. Adult w/ patient. Client placed on continuous cardiac and pulse oximetry monitoring. NIBP monitoring applied. Pulse ox on. NIBP on. Door closed. Noise minimized. Warm blanket given. Pillow given. Verbal reassurance given. 06:18 No provider procedures requiring assistance completed. Patient did not have IV access bm8 during this emergency room visit. 06:49 CT Head Brain wo Cont In Process Unspecified. EDMS 07:05 Report given to James RN. bm8 07:10 Gary Shannon MD is Referral Physician. sp4 07:33 Provided Education on: NA. bp Administered Medications: 06:16 Drug: HYDROcodone-acetaminophen PO 5 mg-325 mg 1 tabs PO once Route: PO; bm8 07:34 Follow up: Response: No adverse reaction bp 06:16 Drug: Ondansetron PO 4 mg PO once Route: PO; bm8 07:34 Follow up: Response: No adverse reaction bp Medication: 06:18 VIS not applicable for this client. bm8 Outcome: 07:12 Discharge ordered by MD. ramos 07:33 Discharged to home via wheelchair, with family, bp 07:33 Condition: stable 07:33 Discharge instructions given to patient, family, Instructed on discharge instructions, follow up and referral plans. Demonstrated understanding of instructions, follow-up care, 07:34 Patient left the ED. bp Signatures: Dispatcher [employer] EDMS Mario Iniguez, RN RN bp Stefany Caruso, RN RN kd3 Leonarda Bonds RN RN vc1 Troy Higginbotham MD MD sp4 Kay Cardenas 2 [place], RN RN bm8
[2024-10-10 07:39] VITALS: TEMP 97.9
[2024-10-10 07:42] VITALS: BP 117/80; O2SAT 99
--- NOTE | 2024-10-10 07:50 | RAD REPORT ---
EXAM: CT brain without contrast HISTORY: head injury COMPARISON: None TECHNIQUE: Multiple contiguous axial images were obtained and a CT of the brain without contrast. Sag ittal and coronal reformats were performed. One or more of the following dose reduction techniques were used: Automated exposure control, adjust ment of the mA and/or kV according to patient size, and/or iterative reconstruction. FINDINGS: Small 3 mm area of hyperdensity along the right aspect of the falx could be a small area of shear inj ury. Elsewhere, no hemorrhage, hydrocephalus or midline shift. Moderate brain atrophy with moderate periventricular and deep white matter chronic microvascular ischemic changes present. No evidence of midline shift or areas of brain edema. The calvarium is intact. The visualized paranasal sinuses and mastoid air cells are essentially clear . Vertebral atherosclerosis. IMPRESSION: 3 mm area of hyperdensity along the falx may represent a small area of shear injury. Elsewhere, no acute abnormalities detected. The findings were communicated with Troy Higginbotham MD at 10/10/2024 7:47 AM by text message.
== END 2024-10-10 07:34 | disposition home or self-care (01) ==
LOC: ER 05:56
DX: S00.03XA Contusion of scalp, initial encounter (principal); W18.30XA Fall on same level, unspecified, initial encounter; Y92.009 Unspecified place in unspecified non-institutional (private) residence as the place of occurrence of the external cause; E11.22 Type 2 diabetes mellitus with diabetic chronic kidney disease; I12.0 Hypertensive chronic kidney disease with stage 5 chronic kidney disease or end stage renal disease; N18.6 End stage renal disease; Z99.2 Dependence on renal dialysis
CPT/HCPCS: 70450; 99283; Q0162

== ENCOUNTER 2025-02-20 14:00 | Day surgery (SDC) | payer OTHER ==
[2025-02-18 08:32] LABS: Absolute Lymphocytes (CBC) 1.2 K/uL (0.7-4.9); Hematocrit 34.7 % (39.6-49.0); Hemoglobin 11.9 g/dL (13.6-17.9); MCH 33.4 pg (27.0-35.0); MCHC 34.4 g/dL (32.0-36.0); MCV 96.9 fL (80-100); MPV 8.3 fL (7.6-11.3); Nucleated RBC Absolute Count 0.0 (0-0); Nucleated Red Blood Cells % 0.1 % (0-0); RBC Red Blood Cell Count 3.58 M/uL (4.33-5.43); White Blood Count 6.90 thou/uL (4.3-10.9)
[2025-02-18 08:40] LABS: PT Prothrombin Time 13.6 SECONDS (10-13.0); PTT, Activated Partial Thromb 32.5 SECONDS (27.2-37.4); Protime INR 1.21
[2025-02-18 08:58] LABS: Anion Gap 9.3 mEq/L (5.0-15.0); BUN Blood Urea Nitrogen 48.0 mg/dL (7-18); Glucose Level 104.0 mg/dL (74-106); Potassium 4.3 mEq/L (3.5-5.1)
--- NOTE | 2025-02-18 09:24 | RAD REPORT ---
Procedure: Chest Pa And Lat (2 Views) HISTORY: Preop for cardiac catheterization COMPARISON: 2023 FINDINGS: The lungs appear clear of acute infiltrate. No significant pleural effusion noted. The heart is normal size. IMPRESSION: No acute abnormality is displayed.
[2025-02-20] MEDS ORDERED: NA CHLORIDE 0.9% 500 ML ONE ×2 (15:27→15:29)
[2025-02-20] MEDS ORDERED: HEPA 1000U/500MLS 2,000 UNIT/1,000 ML BAG IV ONE (15:43)
[2025-02-20] MEDS ORDERED: LIDOCAINE 1% 20 ML MDV ONE (15:44)
[2025-02-20] MEDS ORDERED: CLOPIDOGREL 75 MG TABLET ONE (15:44)
[2025-02-20] MEDS ORDERED: HEPARIN 5000 UNIT/ML 1 ML VIAL ONE (15:44)
[2025-02-20] MEDS ORDERED: ATROPINE SULF 1 MG/10 ML SYR IV ONE (15:44)
[2025-02-20] MEDS ORDERED: VERAPAMIL HCL 10 MG/4 ML VIAL IV ONE (15:44)
[2025-02-20] MEDS ORDERED: HEPARIN 10,000 UNIT/10 ML VIAL IV ONE (15:44)
[2025-02-20] MEDS ORDERED: TICAGRELOR 90 MG TABLET PO ONE (15:45)
[2025-02-20] MEDS ORDERED: ASPIRIN 81 MG CHEWABLE TABLET ONE (15:45)
[2025-02-20] MEDS ORDERED: MIDAZOLAM HCL 2 MG/2 ML INJ ONE (15:47)
[2025-02-20] MEDS ORDERED: FENTANYL CITR 100 MCG/2 ML ONE (15:47)
[2025-02-20 20:01] VITALS: BP 113/66; O2SAT 94
--- NOTE | 2025-02-21 05:14 | OP ---
Date of Procedure: 02/20/2025 Surgeon: DARIANA BECKMAN Procedure Performed: 1. Selective coronary angiogram. 2. Left heart catheterization. 3. PCI of severe proximal diagonal 2 branch, used 2.25 x 60 mm Synergy drug-eluting stent. Indication: Unstable angina with stress test. Access: Right radial artery 6-American closed with TR band. Complications: None. Bleeding: Less than 50 mL. Total Sedation Time: 1 hour, used fentanyl and versed. Description Of Procedure: After risks, benefits, and alternatives were explained, patient agreed to procedure and signed informed consent. The patient was brought into the cardiac catheterization [facility], prepped and draped in the usual sterile fashion. Then, I accessed the right radial artery us ing pediatric micropuncture kit, ultrasound guidance, and fluoroscopy. Placed 6-American slender sheat h and took 5-American [place] 4 catheter over J-wire into the aortic root across the aortic valve, measur ed the LVEDP. Pullback did not record any gradient, then engaged the left main, took standard views and then in the RCA and took standard views. Then, I gave systemic heparin to assure ACT level above 250 throughout the procedure, loaded with 600 mg of Plavix and patient received aspirin today and to ok EBU 3.5 guide into the aortic root over J-wire, engaged left main, took standard views and then to ok run-through wire into the LAD and then to the diagonal branch. Using a 2.5 balloon lesion was pre- dilated and expanded very well and then placed 2.25 x 16 mm Synergy drug-eluting stent excellent expa nsion, 0% residual stenosis. Then, removed the wire and final angiogram was satisfactory. Removed t he guide and the sheath and TR band was used for closure with good hemostasis. Findings: 1. Left main is normal. 2. LAD; proximal luminal irregularity and there is 30% stenosis in mid LAD. After diagonal 2 branch there is 40% stenosis. Mid to distal, there is focal 50% stenosis. Diagonal 1 branch is with lumina l irregularities. Diagonal 2 branch has proximal 90% stenosis, status post successful PCI. It has m id 50% stenosis, which was left for medical management. 3. Left circumflex, moderate size artery, proximal segment with luminal irregularities. OM branch pr oximal segment has 40% and there is widely patent stent after that and then the left circumflex itsel f has moderate disease in the mid to distal portion of it about 40% focal .. 4. RCA; large and dominant proximal 30%, mid diffuse 20% to 30% stenosis. 5. LVEDP is borderline at 30 mmHg. Conclusion: 1. Severe diagonal 2 branch disease, status post successful PCI. 2. Patent OM1 stent with moderate disease elsewhere. Recommendation: 1. Aspirin, Plavix, high-dose statin. 2. Cardiac cath stress test in 6 months. SR/MODL Voice ID: [id number] Report ID: [id number]
== END 2025-02-20 20:08 | disposition home or self-care (01) ==
LOC: CCL 14:00
PROVIDERS: ATTEND Internal Medicine
DX: I25.110 Atherosclerotic heart disease of native coronary artery with unstable angina pectoris (principal); I10 Essential (primary) hypertension; E78.2 Mixed hyperlipidemia; Z95.5 Presence of coronary angioplasty implant and graft; Z79.82 Long term (current) use of aspirin; Z79.899 Other long term (current) drug therapy
CPT/HCPCS: 93005; 85025; 80048; 36415; 85610; 82947 ×2; 85347; 85730; 71046; 93458; 76937; C1893; Q9967; C1725; C9600; J1644 ×2; J2003; J2250; J3010; J7040 ×2; J0461

== ENCOUNTER 2025-03-01 09:23 | Inpatient (IN) | payer OTHER ==
[2025-03-01 10:13] LABS: Absolute Lymphocytes (CBC) 1.1 K/uL (0.7-4.9); Hematocrit 30.6 % (39.6-49.0); Hemoglobin 10.2 g/dL (13.6-17.9); MCH 33.1 pg (27.0-35.0); MCHC 33.4 g/dL (32.0-36.0); MCV 99.2 fL (80-100); MPV 8.9 fL (7.6-11.3); Nucleated RBC Absolute Count 0.0 (0-0); Nucleated Red Blood Cells % 0.0 % (0-0); RBC Red Blood Cell Count 3.09 M/uL (4.33-5.43); White Blood Count 6.80 thou/uL (4.3-10.9)
--- NOTE | 2025-03-01 10:28 | RAD REPORT ---
Procedure: Chest Single View HISTORY: Chest pain COMPARISON: February 18, 2025 FINDINGS: The lungs appear clear of acute infiltrate. No significant pleural effusion noted. The heart is normal size. IMPRESSION: No acute abnormality is displayed.
[2025-03-01 10:40] LABS: ALT/SGPT 17 U/L (16-61); AST/SGOT < 10 U/L (15-37); Albumin 3.3 g/dL (3.4-5.0); Albumin/Globulin Ratio 0.8 (1.1-1.8); Alkaline Phosphatase 85 U/L (45-117); Anion Gap 15.4 mEq/L (5.0-15.0); BUN Blood Urea Nitrogen 58 mg/dL (7-18); Globulin 3.9 g/dL (2.3-3.5); Glucose Level 97 mg/dL (74-106); Potassium 4.4 mEq/L (3.5-5.1)
[2025-03-01 10:43] LABS: Troponin High Sensitivity 162.5 pg/mL (<58.9)
--- NOTE | 2025-03-01 11:10 | ER ---
Nurse's Notes [facility] Name: Sabra Rodriguez Jr Age: 69 yrs Sex: Male : 1955 Arrival Date: 03/01/2025 Time: 09:23 Bed 8 Private MD: OSMAN RAINEY Diagnosis: Chest pain, unspecified Presentation: 03/01 09:35 Chief complaint: Patient states: chest pain started around 6am, radiates to left af3 shoulder, blurry vision, sore and numbness down to left fingers. Coronavirus screen: At this time, the client does not indicate any symptoms associated with coronavirus-19. Ebola Screen: No symptoms or risks identified at this time. Initial Sepsis Screen: Does the patient meet any 2 criteria? No. Patient's initial sepsis screen is negative. Does the patient have a suspected source of infection? No. Patient's initial sepsis screen is negative. Risk Assessment: Do you want to hurt yourself or someone else? Patient reports no desire to harm self or others. Onset of symptoms was March 01, 2025. 09:35 Method Of Arrival: Wheelchair af3 09:35 Acuity: KRISTINA 3 af3 Triage Assessment: 09:39 General: Appears in no apparent distress. uncomfortable, well groomed, well developed, af3 Behavior is calm, cooperative, appropriate for age. Pain: Complains of pain in chest Pain radiates to left arm. Neuro: Level of Consciousness is awake, alert, obeys commands, Oriented to person, place, time, situation, Appropriate for age. Cardiovascular: Reports chest pain, Patient's skin is warm and dry. Respiratory: Airway is patent Respiratory effort is even, unlabored, Respiratory pattern is regular, symmetrical. Historical: - Allergies: 09:39 No Known Allergies; af3 - PMHx: :39 Diabetes - NIDDM; Hypertension; kidney disease; Vision problems; af3 - PSHx: :39 Appendectomy; Cholecystectomy; right arm fistula; af3 - Immunization history:: Adult Immunizations unknown. - Infectious Disease History:: Denies. - Social history:: Smoking status: Patient denies any tobacco usage or history of. Screenin:56 [facility] ED Fall Risk Assessment (Adult) History of falling in the last 3 months, cm10 including since admission No falls in past 3 months (0 pts) Confusion or Disorientation No (0 pts) Intoxicated or Sedated No (0 pts) Impaired Gait Yes (1 pt) Mobility Assist Device Used Yes (1 pt) Altered Elimination No (0 pt) Score/Fall Risk Level 0 - 2 = Low Risk Oriented to surroundings, Maintained a safe environment, Hourly rounding (assess needs \T\ fall precautionary measures) done. Abuse screen: Denies threats or abuse. Denies injuries from another. Nutritional screening: No deficits noted. Tuberculosis screening: No symptoms or risk factors identified. Assessment: 09:45 General: SEE TRIAGE NOTE. bp 11:00 Reassessment: Patient appears in no apparent distress at this time. Patient and/or cm10 family updated on plan of care and expected duration. Pain level reassessed. Patient is alert, oriented x 3, equal unlabored respirations, skin warm/dry/pink. 13:00 Reassessment: Patient appears in no apparent distress at this time. Patient and/or cm10 family updated on plan of care and expected duration. Pain level reassessed. Patient is alert, oriented x 3, equal unlabored respirations, skin warm/dry/pink. 14:24 Pain: Pain began. cm10 Vital Signs: 09:35 BP 147 / 61; Pulse 67; Resp 18; Pulse Ox 99% on R/A; Weight 90.72 kg; Height 5 ft. 4 af3 in. ; 11:00 BP 140 / 72; Pulse 52; Resp 15; Pulse Ox 100% ; bp 12:57 BP 95 / 69; Pulse 50; Resp 16; Temp 98; Pulse Ox 100% ; bp 13:00 BP 106 / 59; Pulse 57; Resp 17; Pulse Ox 100% ; cm10 14:00 BP 94 / 81; Pulse 56; Resp 16; Pulse Ox 100% ; cm10 09:35 Body Mass Index 34.33 (90.72 kg, 162.56 cm) af3 ED Course: 09:25 Patient arrived in ED. am2 09:25 OSMAN RAINEY is Private Physician. am2 09:26 Renny Mariee [facility]-C [facility]. dr5 09:26 Solomon Blue MD is Attending Physician. dr5 09:39 Triage completed. af3 09:39 Arm band placed on. af3 09:43 Mario Iniguez, RN is Primary Nurse. bp 09:56 Patient has correct armband on for positive identification. Bed in low position. Call cm10 light in reach. Side rails up X 1. Client placed on continuous cardiac and pulse oximetry monitoring. NIBP monitoring applied. environmental monitoring technician on. :56 Initial lab(s) drawn, by me, sent to lab. EKG done, by ED staff, reviewed by Renny GIBSON. Inserted saline lock: 20 gauge in right forearm, using aseptic technique. Blood collected. Flushed with 10 mL NS. Patient maintains SpO2 saturation greater than 95% on room air. 09:57 CMP Sent. cm10 :57 CBC with Diff Sent. cm10 09:57 Troponin HS Sent. cm10 10:23 XRAY Chest (1 view) In Process Unspecified. EDMS 11:08 Richard Blue MD is Hospitalizing Provider. dr5 14:23 No provider procedures requiring assistance completed. Patient admitted, IV remains in cm10 place. 14:24 Provided Education on: NEED FOR ADMIT. cm10 Administered Medications: No medications were administered Medication: :56 VIS not applicable for this client. cm10 Outcome: 11:09 Decision to Hospitalize by Provider. dr5 14:23 Admitted to Med/surg accompanied by tech, via wheelchair, room 428, cm10 14:23 Condition: stable 14:23 Instructed on the need for admit, 14:24 Patient left the ED. cm10 Signatures: Dispatcher [employer] EDDE Ilsa Camarena am2 Mario Iniguez RN RN bp Martinez, Clarissa, RN RN cm10 Jeannette Vazquez RN RN af3 Renny Mariee FNP-C FNP-Cdr5
--- NOTE | 2025-03-01 11:10 | EDPHYS ---
Physician Documentation [facility] Name: Sabra Rodriguez Jr Age: 69 yrs Sex: Male : 1955 Arrival Date: 03/01/2025 Time: 09:23 Bed 8 Private MD: OSMAN RAINEY ED Physician Solomon Blue HPI: 03/01 09:32 This 69 yrs old Male presents to ER via Unassigned with complaints of Chest dr5 Pain. 09:32 Onset: The symptoms/episode began/occurred at 06:00. Patient is a 69-year-old male dr5 history of ESRD, cardiac stents, congestive heart failure coming in with chest pain that started at 6 AM that lasted for an hour. Patient states that he had 1 cardiac stent placed on 02/20/25 Dr. Villa. Patient reports he missed dialysis due to cardiac stent and was told to come have dialysis at [facility] today at 930. Patient denies chest pain in ER at the moment. Patient reports he has soreness to left arm where fistula is. Patient denies fever, nausea, vomiting, diarrhea.. Historical: - Allergies: 09:39 No Known Allergies; af3 - PMHx: 09:39 Diabetes - NIDDM; Hypertension; kidney disease; Vision problems; af3 - PSHx: 09:39 Appendectomy; Cholecystectomy; right arm fistula; af3 - Immunization history:: Adult Immunizations unknown. - Infectious Disease History:: Denies. - Social history:: Smoking status: Patient denies any tobacco usage or history of. ROS: 09:36 Constitutional: as per hpi dr5 Exam: 09:36 Constitutional: This is a well developed, well nourished patient who is awake, alert, dr5 and in no acute distress. Head/Face: Normocephalic, atraumatic. Eyes: Pupils equal round and reactive to light, extra-ocular motions intact. Lids and lashes normal. Conjunctiva and sclera are non-icteric and not injected. Cornea within normal limits. Periorbital areas with no swelling, redness, or edema. Chest/axilla: Normal chest wall appearance and motion. Nontender with no deformity. No lesions are appreciated. Cardiovascular: Regular rate and rhythm with a normal S1 and S2. Normal PMI, no JVD. No pulse deficits. Respiratory: Lungs have equal breath sounds bilaterally, clear to auscultation. No rales, rhonchi or wheezes noted. No increased work of breathing, no retractions or nasal flaring. Abdomen/GI: Soft, non-tender, non-distended Back: No spinal tenderness. No costovertebral tenderness. Full range of motion. Skin: Warm, dry with normal turgor. Normal color with no rashes, no lesions, and no evidence of cellulitis. MS/ Extremity: Pulses equal, no cyanosis. Neurovascular intact. Full, normal range of motion. Neuro: Awake and alert, GCS 15, oriented to person, place, time, and situation. Cranial nerves II-XII grossly intact. Motor strength 5/5 in all extremities. Sensory grossly intact. Cerebellar exam normal. Normal gait. 09:36 Cardiovascular: Dialysis shunt: in the left bicep, with palpable thrill, with auscultated bruit, with no erythema, with no edema, no bleeding noted Vital Signs: 09:35 BP 147 / 61; Pulse 67; Resp 18; Pulse Ox 99% on R/A; Weight 90.72 kg; Height 5 ft. 4 af3 in. ; 11:00 BP 140 / 72; Pulse 52; Resp 15; Pulse Ox 100% ; bp 12:57 BP 95 / 69; Pulse 50; Resp 16; Temp 98; Pulse Ox 100% ; bp 13:00 BP 106 / 59; Pulse 57; Resp 17; Pulse Ox 100% ; cm10 14:00 BP 94 / 81; Pulse 56; Resp 16; Pulse Ox 100% ; cm10 09:35 Body Mass Index 34.33 (90.72 kg, 162.56 cm) af3 MDM: 09:26 Medical Screening Exam initiated dr5 09:48 External Records Reviewed: Inpatient record: Findings From Be[facility]acker on 02/20/25 1. Left dr5 main is normal. 2. LAD; proximal luminal irregularity and there is 30% stenosis in mid LAD. After diagonal 2 branch there is 40% stenosis. Mid to distal, there is focal 50% stenosis. Diagonal 1 branch is with luminal irregularities. Diagonal 2 branch has proximal 90% stenosis, status post successful PCI. It has mid 50% stenosis, which was left for medical management. 3. Left circumflex, moderate size artery, proximal segment with luminal irregularities. OM branch proximal segment has 40% and there is widely patent stent after that and then the left circumflex itself has moderate disease in the mid to distal portion of it about 40% focal .. 4. RCA; large and dominant proximal 30%, mid diffuse 20% to 30% stenosis. 5. LVEDP is borderline at 30 mmHg.. 11:03 Differential diagnosis: STEMI, NSTEMI, heart block, hyperkalemia, pneumonia, dr5 costochondritis, dehydration. Data reviewed: vital signs, nurses notes, lab test result(s), cardiac enzymes, troponin i, CBC, white blood cell count, hemoglobin, hematocrit, platelets, electrolytes, sodium, potassium, chloride, serum bicarbonate, BUN, creatinine, serum glucose, EKG, radiologic studies, plain films, I have discussed the patient's presentation/case with the attending Emergency Department Physician;. Consideration of Admission/Observation Patient was admitted/placed on observation. Management of patient was discussed with the following: Hospitalist: Dr. Blue / Aubrey Brush. Community Facilitator: Dr. Allen Kruse I texted his EKG and gave report on patient. He agreed to see patient.. Independent interpretation of the following test(s) in the Emergency Department X-Ray: My interpretation is Independent interpretation of x-ray does not reveal fracture or pneumonia. Historians other than the Patient: Spouse/Significant Other: at Bedside. Care significantly affected by the following chronic conditions: Diabetes, hypertension, kidney disease, recent cardiac cath. Care significantly affected by the following Social Determinants of Health: Poor access to healthcare and/or lack of insurance, Poor access to transportation, Problems related to employment. Scoring Tools HEART Score: History: ECG: Age: Risk Factors: > or = 3 Risk factors for atherosclerotic disease (2), Troponin: Total Score = 6. Counseling: I had a detailed discussion with the patient and/or guardian regarding the historical points, exam findings, and any diagnostic results supporting the discharge/admit diagnosis, the presence of at least one elevated blood pressure reading (>120/80) during this emergency department visit, lab results, radiology results, the need for further work-up and treatment in the hospital. ED course: I spoke with patient and regarding need for admission. Cardiology was consulted as well as hospitalist. Patient denies chest pain at this time.. 03/01 09:35 Order name: CBC with Diff; Complete Time: 10:17 dr5 03/01 09:35 Order name: Troponin HS; Complete Time: 10:50 dr5 03/01 09:35 Order name: CMP; Complete Time: 10:50 dr5 03/01 12:19 Order name: Basic Metabolic Panel [facility] 03/01 12:19 Order name: Basic Metabolic Panel [facility] 03/01 12:19 Order name: CBC with Automated Diff [facility] 03/01 12:19 Order name: CBC with Automated Diff [facility] 03/01 12:19 Order name: Magnesium [facility] 03/01 12:19 Order name: Magnesium [facility] 03/01 12:19 Order name: Phosphorus [facility] 03/01 12:19 Order name: Phosphorus [facility] 03/01 09:35 Order name: XRAY Chest (1 view); Complete Time: 10:40 dr5 03/01 12:17 Order name: CONS Physician Consult [facility] 03/01 09:35 Order name: Cardiac monitoring; Complete Time: 09:43 dr5 03/01 09:35 Order name: EKG - Nurse/Tech; Complete Time: 09:43 dr5 03/01 09:35 Order name: IV Saline Lock; Complete Time: 09:57 dr5 03/01 09:35 Order name: Labs collected and sent; Complete Time: 09:57 dr5 03/01 09:35 Order name: O2 Per Protocol; Complete Time: 09:57 dr5 03/01 09:35 Order name: O2 Sat Monitoring; Complete Time: 09:57 dr5 EC:38 Rate is 50 beats/min. Rhythm is regular. QRS [place] is Normal. QRS interval is normal at dr5 148 msec. QT interval is normal at 504 msec. Clinical impression: No evidence of ischemia. Administered Medications: No medications were administered Disposition: 16:54 Co-signature as Attending Physician, Solomon Blue MD I reviewed the patient's care rn provided by the Advanced Practice Provider and agree with the diagnosis and treatment plan. Disposition Summary: 03/01/25 11:09 Hospitalization Ordered Notes: Hospitalization Status: Inpatient Admission dr5 Provider: Richard Blue dr5 Location: Telemetry/MedSurg (Inpatient) dr5 Condition: Stable dr5 Problem: new dr5 Symptoms: have worsened dr5 Bed/Room Type: Standard dr5 Room Assignment: 426(03/01/25 12:30) eb Diagnosis - Chest pain, unspecified dr5 Forms: - Medication Reconciliation Form dr5 - SBAR form dr5 - Leadership Thank You Letter dr5 Signatures: Dispatcher [employer] [facility] Solomon Blue MD MD rn Ekaterina Bowen Ashley, RN RN af3 Renny Mariee, STUDIO CONTROL OPERATOR-C STUDIO CONTROL OPERATOR-Cdr5 Corrections: (The following items were deleted from the chart) 09:35 09:35 CBC+H.LAB.BRZ ordered. EDMS EDMS 09:35 09:35 Troponin High Sensitivity+C.LAB.BRZ ordered. EDMS EDMS 09:35 09:35 COMPREHENSIVE METABOLIC PANEL+C.LAB.BRZ ordered. EDMS EDMS 09:36 09:36 Chest Single View+RAD.RAD.BRZ ordered. EDMS EDMS 09:47 09:32 Patient is a 69-year-old male history of ESRD, cardiac stents, congestive heart dr5 failure coming in with chest pain that started at 6 AM that lasted for an hour. Patient states that he had 1 cardiac stent placed [address] Reyes. Patient reports he missed dialysis due to cardiac stent and was told to come have dialysis at [facility] today at 930. Patient denies chest pain in ER at the moment. Patient reports he has soreness to left arm where fistula is. Patient denies fever, nausea, vomiting, diarrhea.. dr5 11:10 11:03 Management of patient was discussed with the following: Community Facilitator: Dr. Villa - netta I texted his EKG and gave report on patient. He agreed to see patient.. dr5 12:30 11:09 netta lambert
[2025-03-01] MEDS ORDERED: MAGNESIUM HYDROXIDE 8% 30 ML PO PRN (12:15)
[2025-03-01] MEDS ORDERED: ACETAMINOPHEN 325 MG TABLET PO PRN (12:15)
[2025-03-01] MEDS ORDERED: MIDODRINE HCL 5 MG TABLET PO PRN (12:18)
[2025-03-01] MEDS ORDERED: HYDROCODONE/APAP 5/325 MG TAB PO PRN (12:20)
--- NOTE | 2025-03-01 12:40 | P.HP ---
Certification for Inpatient Patient admitted to: Observation With expected LOS: <2 Midnights Patient will require the following post-hospital care: None Practitioner: I am a practitioner with admitting privileges, knowledge of patient current condition, hospital course, and medical plan of care. Services: Services provided to patient in accordance with Admission requirements found in Title 42 Section 412.3 of the Code of Federal Regulations Patient History Date of Service: 03/01/25 Primary Care Provider: Dr Lit Kna Reason for admission: Chest pain, ACS rule out History of Present Illness: 69-year-old male prior medical history NIDDM, hypertension, ESRD on HD, blurry vision presents to the ER via personal vehicle due to complaints of chest pain lasting 1 hour that began in his left arm and radiated upward to the chest accompanied by worsening blurry vision and mild nausea. Patient describes the pain as burning. Denies diaphoresis, dizziness, balance problems, taking anything for pain relief prior to resolution. States that he missed dialysis yesterday 02/28 and was on his way to make up dialysis day when he decided to come to the ED instead. ER course: Upon arrival to the emergency room patient vital signs were collected noted to be 140/72 BP, pulse 52, respirations 15, pulse ox 100 on room air. External records reviewed showing recent stent placement here. ECG EKG was conducted showing wide QRS and bradycardia. Heart score 6. Labs notable for troponin 162.5. Last recorded here was 265 on 02/02/2024. Dr. Villa was contacted. Patient will be kept for observation for his evaluation. Allergies No Known Allergies Allergy (Verified 02/18/25 07:51) Home medications list reviewed: Yes Home Medications: Aspirin 81 mg PO DAILY 02/01/24 Midodrine HCl 5 mg PO TID 30 Days #90 tab 02/14/24 - Past Medical/Surgical History Has patient received pneumonia vaccine in the past: No Diabetic: Yes -: HTN -: DM -: sleep apnea -: CHF -: CKD -: appendectomy -: subtotal cholecystectomy november 05, 2019 -: ERCP november 06, 2019 Psychosocial/ Personal History: Patient lives at home with his family. - Family History Father -: Hypertension, Diabetes - Social History Smoking Status: Never smoker Alcohol use: No CD- Drugs: No Caffeine use: No Review of Systems 10-point ROS is otherwise unremarkable (Spouse at the bedside for collateral history) Physical Examination - Physical Exam General: Alert, In no apparent distress, Oriented x3, Cooperative, Obese (Morbidly) HEENT: Atraumatic, Normocephalic, PERRLA, Mucous membr. moist/pink Neck: Supple, 2+ carotid pulse no bruit, JVD not distended, No Thyromegaly, No LAD Respiratory: Clear to auscultation bilaterally, Diminished Cardiovascular: No edema, Normal pulses, Regular rate/rhythm, Normal S1 S2 Capillary refill: Brisk Gastrointestinal: Normal bowel sounds, Hypoactive, Non-distended Musculoskeletal: No clubbing, No swelling, No contractures, No erythema Integumentary: No rashes, No breakdown, No significant lesion, No tenderness/swelling Neurological: Normal speech, Normal strength at 5/5 x4 extr, Normal tone, Sensation intact, Cranial nerves 3-12 intact, Normal affect External genitalia: Deferred Rectal: Deferred - Studies Laboratory Data (last 24 hrs) 03/01/25 03/01/25 09:52 09:52 WBC 6.80 Hgb 10.2 L Hct 30.6 L Plt Count 161 Sodium 141 Potassium 4.4 BUN 58 H Creatinine 7.59 H Glucose 97 Total Bilirubin 0.6 AST < 10 L ALT 17 Alkaline Phosphatase 85 Assessment and Plan - Plan Assessment: 69-year-old male prior medical history NIDDM, hypertension, ESRD on HD, blurry vision, s/p cardiac cath with stents 02/20 presents to the ER via personal vehicle due to complaints of burning chest pain lasting 1 hour that began in his left arm and radiated upward to the chest accompanied by worsening blurry vision and mild nausea. Denies diaphoresis, dizziness, balance problems, taking anything for pain relief prior to resolution. Endorses missed dialysis 02/28. Plan: Chest Pain ACS rule out NSTEMI vs Unstable Angina - EGC completed wide QRS complex, bradycardic - Trop 162.5 - BNP - Heart Score = 6 -Continue home aspirin 81 mg - Suuplemental O2 titrate SpO2>94%, currently room - Consider SL nitrogen chest pain return - Morphine IV ESRD on HD (TTS): -Creatinine 7.59, potassium 4.4, sodium 141 -Nephrology consulted, will defer dialysis to them. -Maintain euvolemia. -Daily KFT. -Avoid nephrotoxins when possible. -Renally dose all medications. Dispo: Make up hemodialysis Cardiology recommendations Anticipate home with no needs within 24 hours Discharge Plan: Home Plan to discharge in: 24 Hours - Advance Directives Does patient have a Living Will: No Does patient have a Durable POA for Healthcare: No - Code Status/Comfort Care Code Status Assessed: Yes (Full code) Critical Care: No
[2025-03-01 15:08] VITALS: BMI 38.7
--- NOTE | 2025-03-01 15:48 | CON ---
Date of Consultation: 03/01/2025 Reason For Consultation: Chest pain, elevated troponin. History Of Present Illness: A 69-year-old male who had recent PCI to the diagonal branch 1; has past medical history of diabetes, hypertension, end-stage renal disease, and coronary artery disease. He had a PCI of the diagonal 1 and comes in with chest pain, feels like pressure on the retrosternal wh ich radiates to the left upper extremities on and off and with and without activities. Denies having active chest pain now. Past Medical History: As outlined above in the HPI. Medications: Refer to consultation sheet for detailed list. Allergies: NO KNOWN DRUG ALLERGIES. Family History: No premature coronary artery disease or cancer. Social History: Does not smoke or drink. Does not use any drugs. Review of Systems: All systems were reviewed and they were negative except what was mentioned in HPI. Physical Examination: Vital Signs: Reviewed. Head and Neck: Pupils are equal, reactive to light. Intact eye movements. No JVD. No cervical lym phadenopathy. Neck is supple. Thyroid is not enlarged. Lungs: Clear to auscultation bilaterally. No rhonchi, wheezing, or crackles. No accessory muscle u se. Heart: Regular rate and rhythm. No extra sounds. Abdomen: Soft, nontender. Bowel sounds positive. No organomegaly. No masses or hernia. No rigidi ty or rebound. Extremities: No clubbing or cyanosis. No edema. Neurologic: Alert, awake, oriented x3. No acute focal deficits appreciated. Investigations: BUN 58, creatinine 7.5, and troponin 162. Hemoglobin is 10.2. Assessment And Recommendations: 1. Chest pain. Mildly elevated troponin. The patient has end-stage renal disease. He is chest pain -free now. Monitor two more sets of this. If substantial rise in troponin, then start on IV heparin and please resume the dual antiplatelet therapy as he had a stent recently. To resume Plavix 75 mg daily as well as aspirin 81 mg daily and high-dose statin. 2. Dyslipidemia. Recommend atorvastatin 80 mg q.h.s. 3. End-stage renal disease. He will need hemodialysis in-house. We will plan to revisit the coronar y arteries on Monday with coronary angiogram, as there is a mild troponin leak thus far and having ch est pain. SR/MODL Voice ID: [id number] Report ID: [id number]
[2025-03-01] MEDS: HEPARIN 5000 UNIT/ML 1 ML VIAL SQ SCH (16:57)
[2025-03-01] MEDS: CLOPIDOGREL 75 MG TABLET PO ONE (18:23)
[2025-03-01] MEDS: ATORVASTATIN 80 MG TAB PO SCH (21:44)
--- NOTE | 2025-03-02 03:23 | CON ---
Date of Consultation: 03/01/2025 Chief Complaint: End-stage renal disease, chest pain, hypotension. History Of Present Illness: The patient is a 69-year-old man with history of non-insulin dependent diabetes mellitus, hypertension, diabetic kidney disease, peripheral vascular disease, diabetic retinopathy, nephropathy, end-stage renal disease on hemodialysis. The patient came to the hospital because of generalized weakness. He was found to have hypotension and workup revealed elevated troponin. The patient was complaining of chest pain, lasting 1 hour prior to this admission, radiating to the left arm and associated with worsening of blurry vision and mild nausea. He described pain in the upper chest and left-sided chest associated with burning like heart-burn sensation. Denies diaphoresis, dizziness, and balance problem, although patient is bedbound. He needs dialysis yesterday and was to have dialysis today, although due to chest pain he was brought to emergency room. Blood pressure was done in the emergency room was 112/72. Subsequently, he was found to have systolic blood pressure of 90 and diastolic of 60, heart rate 52, respiratory rate 15, and SpO2 100% on room. The patient had a very chest pain score of 6 and it improved to score 3. Troponin is 162 and the patient is consulted by chemistry laboratory technician. Past Medical History: Diabetes mellitus, hypertension, diabetic kidney disease, sleep apnea, diabetes, congestive heart failure, end-stage renal disease, subtotal appendectomy, cholecystectomy, ERCP. Family History: Diabetes mellitus, hypertension. Social History: Denies tobacco alcohol. Denies drugs. Review of Systems: Constitutional: Denies fever, chills. Eyes: Denies new vision changes. Ears, Nose, Mouth, and Throat: Denies sore throat, earache. Respiratory: Has showed some shortness of breath with light activity. Chest: He was complaining of chest pain as described above. GI: Denies nausea or vomiting. Denies dysuria or hematuria. All other systems reviewed and all are negative. Physical Examination: General: Not in acute distress. Obese. HEENT: Atraumatic, normocephalic. Anicteric sclerae. Neck: Supple. No bruits. No JVD. Cardiovascular: S1, S2. Respiratory: Clear to auscultation. Extremities: No edema. No erythema. Neurological: No tremor. Cranial nerves intact. Laboratory Data: Sodium 141, potassium 4.4, BUN 58, creatinine 7.59, _ hemoglobin 10.2, WBC 6.8, and platelets 161,000. Impression And Plan: 1. The patient is a 69-year-old man with prior medical history of non-insulin dependent diabetes mellitus, hypertension, end-stage renal disease, diabetic retinopathy, nephropathy. Patient complaints of chest pain, worsening of blurry vision and nausea. Denies syncope. The patient is undergoing wotk-up for chest pain. End-stage renal disease. Potassium is within normal limits. There is no metabolic acidosis. Continue to monitor electrolytes and dialysis will be done within the next 24 hours. Patient currently is undergoing workup for non-ST elevation myocardial infarction to rule out acute myocardial infarction. 2. Anemia of chronic kidney disease. Monitor hemoglobin. Adjust MEGHNA as needed. 3. Diabetes mellitus. Continue insulin. 4. Borderline hypotension, likely secondary to IV morphine and nitroglycerin. Further recommendation from primary team. DICK/QUIANA Voice ID: [id number] Report ID: [id number] TOÑA
[2025-03-02 04:22] LABS: Absolute Lymphocytes (CBC) 1.1 K/uL (0.7-4.9); Hematocrit 29.5 % (39.6-49.0); Hemoglobin 9.9 g/dL (13.6-17.9); MCH 32.9 pg (27.0-35.0); MCHC 33.4 g/dL (32.0-36.0); MCV 98.5 fL (80-100); MPV 8.5 fL (7.6-11.3); Nucleated RBC Absolute Count 0.0 (0-0); Nucleated Red Blood Cells % 0.0 % (0-0); RBC Red Blood Cell Count 2.99 M/uL (4.33-5.43); White Blood Count 6.80 thou/uL (4.3-10.9)
[2025-03-02 04:42] LABS: Anion Gap 13.4 mEq/L (5.0-15.0); BUN Blood Urea Nitrogen 63.0 mg/dL (7-18); Glucose Level 89.0 mg/dL (74-106); Magnesium 2.3 mg/dL (1.6-2.4); Potassium 4.4 mEq/L (3.5-5.1)
[2025-03-02] MEDS: CLOPIDOGREL 75 MG TABLET PO SCH (08:32)
[2025-03-02] MEDS: ASPIRIN 81 MG CHEWABLE TABLET PO SCH (08:32)
--- NOTE | 2025-03-02 10:46 | P.PN ---
Subjective Date of Service: 03/02/25 Primary Care Provider: Dr Lit Kan Chief Complaint: Chest pain, ACS rule out Subjective: Improving assessed patient lying in bed on room air in no apparent distress. Patient states he has had no more instances of chest pain throughout the night. He states that he still has left arm tingling. Otherwise denies acute complaints. Reviewed that per his note the tentative plan is to have repeat RHC on Monday with our biology faculty member. Review of Systems 10-point ROS is otherwise unremarkable Physical Examination - Vital Signs Temperature: 98.2 F Blood Pressure: 114/62 Pulse: 55 Respirations: 16 Pulse Ox (%): 100 - Physical Exam General: Alert, Oriented x3, Cooperative, Obese HEENT: Atraumatic, Normocephalic, Mucous membr. moist/pink Neck: Supple, JVD not distended, No Thyromegaly Respiratory: Clear to auscultation bilaterally, Normal air movement, Diminished Cardiovascular: Normal pulses, Regular rate/rhythm, Normal S1 S2, No gallops, No rubs, No murmurs Capillary refill: Brisk Gastrointestinal: Normal bowel sounds, Soft and benign, Non-distended Musculoskeletal: No clubbing, No swelling, No contractures, No erythema Integumentary: No rashes, No breakdown, No significant lesion, No t enderness/swelling Neurological: Normal speech, Normal strength at 5/5 x4 extr, Normal tone, Sensation intact, Cranial nerves 3-12 intact, Normal affect - Studies Laboratory Data (last 24 hrs) 03/01/25 09:52 Sodium 141 Potassium 4.4 BUN 58 H Creatinine 7.59 H Glucose 97 Total Bilirubin 0.6 AST < 10 L ALT 17 Alkaline Phosphatase 85 Medications List Reviewed: No Assessment And Plan - Plan Assessment: 69-year-old male prior medical history NIDDM, hypertension, ESRD on HD, blurry vision, s/p cardiac cath with stents 02/20 presents to the ER via personal vehicle due to complaints of burning chest pain lasting 1 hour that began in his left arm and radiated upward to the chest accompanied by worsening blurry vision and mild nausea. Denies diaphoresis, dizziness, balance problems, taking anything for pain relief prior to resolution. Endorses missed dialysis 02/28. Plan: Chest Pain ACS rule out NSTEMI vs Unstable Angina - EGC completed wide QRS complex, bradycardic - Trop 162.5 - Heart Score = 6 - Continue home aspirin 81 mg - Recommendations from cardiology include restarting Plavix 75 mg and atorvastatin 80 mg at bedtime, with continuation of aspirin 81 mg -Considering coronary angiogram 03/03, n.p.o. and suspend heparin subcu after midnight - Suplemental O2 titrate SpO2>94%, currently room - DC Morphine IV, never needed. Additionally has not required any SL nitroglyc eliecer. ESRD on HD (TTS): -Creatinine 7.41, potassium 4.4, sodium 140 -Nephrology consulted, will defer dialysis to them. -Maintain euvolemia. -Daily KFT. -Avoid nephrotoxins when possible. -Renally dose all medications. Dispo: Make up hemodialysis Cardiology considering coronary angiogram Saturday 03/03 Anticipate home with no needs within 24 hours Discharge Plan: Home Plan to discharge in: 24 Hours - Code Status/Comfort Care Code Status Assessed: No Critical Care: No
--- NOTE | 2025-03-02 18:39 | PN ---
Date of Progress Note: 03/02/2025 Subjective: Seen by bedside. No further chest pain. He is also having dialysis. Review of Systems: No further chest pain. No nausea, vomiting, diarrhea. No abdominal pain. No dysuria, polyuria, or urinary urgency. All other systems reviewed and they are all negative. Physical Examination: Vital Signs: Reviewed. Head and Neck: Pupils are equal, reactive to light. Intact eye movements. No JVD. No cervical lym phadenopathy. Neck is supple. Thyroid is not enlarged. Lungs: Clear to auscultation bilaterally. No rhonchi, wheezing, or crackles. No accessory muscle u se. Heart: Regular rate and rhythm. No extra sounds. Abdomen: Soft, nontender. Bowel sounds positive. No organomegaly. No masses or hernia. No rigidi ty or rebound. Extremities: No edema, clubbing, or cyanosis. Intact pulses. Skin: No rash. No nodules. Neurologic: Alert, awake, oriented x3. No acute focal deficits appreciated. Investigations: Troponin is trending down at 111. BUN 63, creatinine 7.4. Assessment And Recommendations: 1. Chest pain with elevated troponin suggestive of unstable angina. Keep n.p.o. past midnight for a coronary angiogram tomorrow morning. He had a stent put in the diagonal branch recently and there mi ght be stenosis of the LAD that needs to be fixed. We will plan according to the coronary angiogram tomorrow. 2. Dyslipidemia. Atorvastatin 80 mg q.h.s. 3. End-stage renal disease. Continue in-house hemodialysis. SR/MODL Voice ID: [id number] Report ID: [id number]
--- NOTE | 2025-03-02 21:09 | PN ---
Date of Progress Note: 03/02/2025 Chief Complaint: End-stage renal disease, acute coronary syndrome, hypotension. Subjective: The patient is a 69-year-old man with history of nbl-hmohost-aifwaqyqa diabetes mellitus , hypertension, diabetic kidney disease, peripheral vascular disease, diabetic nephropathy, retinopat hy, end-stage renal disease, on hemodialysis 3 times per week. The patient came to the hospital [facility] use of generalized weakness and chest pain. He was found to have hypotension. Workup revealed eleva hafsa troponin. The patient was complaining of chest pain lasting for 1 hour prior to admission, radia ting to left arm, and was associated with blurry vision and heartburn sensation. He denies diaphores is, dizziness, balance problems, although he is bedbound. He was scheduled to have dialysis today. Yesterday, blood pressure was on low side and dialysis was rescheduled for today. Today, he is under going dialysis and he is tolerating ultrafiltration. Blood pressure is stable during dialysis. Review of Systems: Denies chest pain, palpitations. Physical Examination: Lungs: Clear to auscultation bilaterally. Heart: S1, S2. Abdomen: Soft. Extremities: Slight edema. Impression And Plan: 1. The patient is a 69-year-old man with prior medical history of nou-buvnarj-akfrxblrw diabetes kalia itus, hypertension, end-stage renal disease, diabetic retinopathy, nephropathy. He came to the [facility] because of chest pain and shortness of breath, blurry vision. Denies syncope. The patient was f ound to have elevated troponin level and is to have cardiac workup and cardiac catheterization will b e done tomorrow. The patient will have dialysis after IV contrast exposure to prevent hyperkalemia r elated to contrast. 2. Anemia of chronic kidney disease. Monitor hemoglobin level. Adjust MEGHNA. 3. Borderline hypotension, likely secondary to treatment with IV morphine and nitroglycerin. Current ly, blood pressure is improving and he does not require blood pressure medication at this point. Con tinue midodrine as tolerated for blood pressure support to prevent intradialytic hypotension. 4. Coronary artery disease, non-ST elevation myocardial infarction. Cardiac catheterization will be done tomorrow. DICK/QUIANA Voice ID: [id number] Report ID: [id number]
[2025-03-03 08:05] VITALS: TEMP 98.2
[2025-03-03] MEDS ORDERED: HEPA 1000U/500MLS 2,000 UNIT/1,000 ML BAG IV ONE (08:19)
[2025-03-03] MEDS ORDERED: LIDOCAINE 1% 20 ML MDV ONE ×2 (08:19→08:48)
[2025-03-03] MEDS ORDERED: MIDAZOLAM HCL 2 MG/2 ML INJ ONE (08:50)
[2025-03-03] MEDS ORDERED: FENTANYL CITR 100 MCG/2 ML ONE (08:50)
[2025-03-03] MEDS ORDERED: NA CHLORIDE 0.9% 500 ML ONE (08:51)
--- NOTE | 2025-03-03 11:38 | P.DS ---
Admission Date: 03/02/25 Discharge Date: 03/03/25 Primary Care Provider: Dr Lit Rainey Disposition: ROUTINE DISCHARGE Discharge Condition: GOOD Reason for Admission: Chest pain, ACS rule out Consultations: Cardiology Procedures: Coronary angiogram with Dr. Reyes 03/03/2025 Brief History of Present Illness: 69-year-old male prior medical history NIDDM, hypertension, ESRD on HD, blurry vision presents to the ER via personal vehicle due to complaints of chest pain lasting 1 hour that began in his left arm and radiated upward to the chest accompanied by worsening blurry vision and mild nausea. Patient describes the pain as burning. Denies diaphoresis, dizziness, balance problems, taking anything for pain relief prior to resolution. States that he missed dialysis yesterday 02/[address] to make up dialysis day when he decided to come to the ED instead. ER course: Upon arrival to the emergency room patient vital signs were collected noted to be 140/72 BP, pulse 52, respirations 15, pulse ox 100 on room air. External records reviewed showing recent stent placement here. ECG EKG was conducted showing wide QRS and bradycardia. Heart score 6. Labs notable for troponin 162.5. Last recorded here was 265 on 02/02/2024. Dr. Villa was contacted. Patient was kept for observation for his evaluation. Hospital Course: Chest Pain ACS rule out NSTEMI Patient was admitted to the hospital for acute chest pain. He was seen by cardiology for ACS rule out to determine if he was experiencing NSTEMI or unstable angina. ECG was completed showing wide-complex urinalysis and patient was noted to be bradycardic. Initial troponin was 162 and continued downward trend throughout hospitalization. On admission his heart score was 6. Patient was continued on his home aspirin and Plavix. Additionally, cardiology recommended adding atorvastatin 80 mg nightly at bedtime. Patient underwent coronary angiogram on 03/[address] Villa for follow-up since he recently had stent placed on 02/20. Prior to angiogram patient was n.p.o. and placed on heparin drip for SD prophylaxis. ESRD on HD (TTS): Patient came to the ER after missing 1 session of dialysis this past Monday. He says he started having chest pain on his way to his make-up session of dialysis on Monday. Nephrology was consulted and deferred dialysis until after his coronary angiogram on 03/03. Patient to complete dialysis after angiogram and resume normal schedule. His fluid status was maintained with HD. Renal function was monitored daily. Medications were renally dosed and nephrotoxins were avoided when possible. Vital Signs/Physical Exam: Temp Pulse Resp BP Pulse Ox 98.2 F 59 17 101/56 L 97 03/03/25 08:00 03/03/25 08:00 03/03/25 08:00 03/03/25 08:00 03/03/25 08:00 General: Alert, Oriented x3, Cooperative, Obese HEENT: Atraumatic, Normocephalic, Mucous membr. moist/pink Neck: Supple, JVD not distended, No Thyromegaly Respiratory: Clear to auscultation bilaterally, Normal air movement, Diminished Cardiovascular: Normal pulses, Regular rate/rhythm, Normal S1 S2, No gallops, No rubs, No murmurs Capillary refill: Brisk Gastrointestinal: Normal bowel sounds, Soft and benign, Non-distended Musculoskeletal: No clubbing, No contractures, No erythema, No tenderness Integumentary: No rashes, No significant lesion, No erythema Neurological: Normal speech, Normal strength at 5/5 x4 extr, Normal tone, Sensation intact, Normal affect Urinary: Dialysis catheter External genitalia: Deferred Rectal: Deferred Laboratory Data at Discharge: WBC 6.80 thou/uL (4.3-10.9) 03/02/25 04:04 Hgb 9.9 g/dL (13.6-17.9) L 03/02/25 04:04 Hct 29.5 % (39.6-49.0) L 03/02/25 04:04 Plt Count 160 thou/uL (152-406) 03/02/25 04:04 Sodium 140 mEq/L (136-145) 03/02/25 04:06 Potassium 4.4 mEq/L (3.5-5.1) 03/02/25 04:06 BUN 63 mg/dL (7-18) H 03/02/25 04:06 Creatinine 7.41 mg/dL (0.70-1.30) H 03/02/25 04:06 Glucose 89 mg/dL (74-106) 03/02/25 04:06 Phosphorus 6.3 mg/dL (2.5-4.9) H 03/02/25 04:06 Magnesium 2.3 mg/dL (1.6-2.4) 03/02/25 04:06 Total Bilirubin 0.6 mg/dL (0.2-1.0) 03/01/25 09:52 AST < 10 U/L (15-37) L 03/01/25 09:52 ALT 17 U/L (16-61) 03/01/25 09:52 Alkaline Phosphatase 85 U/L (45-117) 03/01/25 09:52 Home Medications: Aspirin 81 mg PO DAILY 02/01/24 Midodrine HCl 5 mg PO TID 30 Days #90 tab 02/14/24 Clopidogrel Bisulfate [Plavix] 03/01/25 Atorvastatin Calcium [Lipitor] 80 mg PO BEDTIME #90 tab 03/03/25 New Medications: Atorvastatin Calcium [Lipitor] 80 mg PO BEDTIME #90 tab Physician Discharge Instructions: [facility] [employer] Call Iris Agarwal RN at [phone] for questions or concerns after discharge. Expect a call within 1-2 business days of discharge. Alternate: LISA Vogel [phone]. Alternate: LISA Alvarez [phone]. PROBLEM: Chest pain GOAL: Clear understanding of disease process INSTRUCTIONS: Take your medications as prescribed Follow-up with your PCP within the next 2 to 3 days Follow-up with your hand mixer in the next 1 to 2 weeks Ensure that you are compliant with all of your hemodialysis sessions Diet: Renal diet Activity: Resume normal activities as tolerated Diet: Renal Activity: Ad tyrone Followup: LIT RAINEY [Primary Care Provider] - 2-3 Days Gordy Villa MD [ACTIVE - CAN ADMIT] - 1-2 Weeks Time spent managing pt's care (in minutes): 38
--- NOTE | 2025-03-03 12:02 | P.PN ---
Subjective Date of Service: 03/03/25 Primary Care Provider: Dr Lit Kan Chief Complaint: Chest pain, ACS rule out Subjective: No new changes, No C/O voiced, Tolerating diet, Ambulating, Improving Review of Systems 10-point ROS is otherwise unremarkable Physical Examination - Vital Signs Temperature: 98.2 F Blood Pressure: 153/90 Pulse: 64 Respirations: 10 Pulse Ox (%): 97 - Physical Exam General: Alert, In no apparent distress HEENT: Atraumatic, PERRLA, EOMI Neck: Supple, JVD not distended Respiratory: Clear to auscultation bilaterally, Normal air movement Cardiovascular: Regular rate/rhythm, Normal S1 S2 Gastrointestinal: Normal bowel sounds, No tenderness Musculoskeletal: No tenderness Integumentary: No rashes Neurological: Normal speech, Normal tone, Normal affect Lymphatics: No axilla or inguinal lymphadenopathy - Studies Medications List Reviewed: No Assessment And Plan - Current Problems (Diagnosis) (1) NSTEMI (non-ST elevated myocardial infarction) Current Visit: No Status: Acute Plan: Patient is s/p coronary angiogram and PCI of Diagonal stent, distal edge ISR Continue ASA 81 mg daily Continue plavix 75 mg daily Lipitor 80 mg daily outpatient follow up with cardiology to evaluate mild to moderate mid LAD dis ease with cardiac PET scan.
[2025-03-03 13:38] VITALS: BP 124/71
[2025-03-03 18:09] VITALS: O2SAT 97
--- NOTE | 2025-03-04 01:30 | OP ---
Date of Procedure: 03/03/2025 Surgeon: Cristo Reyes Procedures Performed: 1. Selective coronary angiogram. 2. Percutaneous coronary intervention of the diagonal 1 with Synergy 2.25 x 12 mm drug-eluting stent. Indication For Procedure: [id number] SC. Complications: None. Estimated Blood Loss: Less than 50 cc. Access: Right radial, closed by TR band. Sedation Time: 30 minutes with 1 of Versed and 25 of fentanyl. Description Of Procedure: After risks, benefits, and alternatives were explained to the patient, the patient agreed to proceed with procedure and signed informed consent. The patient was brought back to the molder labels, prepped and draped in sterile fashion. Time-out was performed. Sedation was admini stered. Next, right radial access was obtained using ultrasound-guided micropuncture technique. Tig er 4 catheter was advanced over a J-wire to the aortic root. Selective angiogram was done using the same catheter. That catheter was later exchanged with an XB LAD 3.5 mm guide. Heparin was administe red. ACT was therapeutic. Runthrough wire was passed across the diagonal. GuideLiner was used to h elp support the stent placement. Next, Synergy 2.25 x 12 mm drug-eluting stent was placed across the lesion and postdilated with a stent balloon. Final angiogram shows TABATHA-3 flow. Catheter was remov ed. Wire was removed. Guide was removed over a wire. Sheath was removed and TR band was applied. Hemostasis was achieved. The patient was moved back to recovery in stable condition. Findings: 1. Left main normal. 2. LAD proximal mild luminal irregularities with mid 40% disease after the origin of the diagonal, th en distal diffuse 30% disease. 3. Diagonal 1, proximal stent patent with distal edge 80% in-stent restenoses. 4. Status post PCI as above. 5. Left circ; mild luminal irregularities. 6. OM1; mid stent patent and mild luminal irregularities. 7. RCA; mid diffuse atherosclerosis with diffuse 20% to 30% disease through the whole RCA. Assessment: 1. Mild to moderate mid LAD disease, outpatient stress test for evaluation of that. 2. Significant diagonal 1 proximal stent distal edge ISR status post PCI with Synergy 2.[address] ug-eluting stent. 3. Mild RCA disease. Plan: 1. Aspirin 81 mg daily for life. 2. Plavix 75 mg daily for 12 months. 3. Continue aggressive medical treatment of CAD. DULCE/QUIANA Voice ID: [id number] Report ID: [id number]
--- NOTE | 2025-03-04 01:35 | PN ---
Date of Progress Note: 03/03/2025 Chief Complaint: End-stage renal disease, acute coronary syndrome, elevated troponin, hypotension, chest pain. Subjective: The patient is a 69-year-old man with history of insulin-dependent diabetes mellitus; hypertension; diabetic kidney disease; peripheral vascular disease; diabetic nephropathy; retinopathy; end-stage renal disease, on hemodialysis 3 times per week. He came to the hospital because of generalized weakness and a substernal chest pain associated with hypotension and shortness of breath. The patient was treated with pain medication, nitroglycerin and today he underwent cardiac catheterization. Dialysis was scheduled after contrast exposure. Review of Systems: Denies chest pain, palpitation. Physical Examination: Lungs: Clear to auscultation bilaterally. Heart: S1, S2. Abdomen: Soft. Extremities: Slight edema. Impression And Plan: The patient is a 69-year-old man with prior medical history of insulin-dependent diabetes mellitus, hypertension, end-stage renal disease, diabetic retinopathy, nephropathy, came to the hospital because of dyspnea and chest pain. Denies syncope. Cardiac workup is done today with IV contrast exposure. The patient underwent cardiac catheterization and dialysis will be done after cardiac catheterization. 1. Anemia of chronic disease. Monitor hemoglobin level. Adjust MEGHNA. 2. Borderline hypotension, likely secondary to IV morphine and nitroglycerin. Monitor blood pressure during dialysis and adjust ultrafiltration for volume control and titrate ultrafiltration goal to prevent intradialytic hypotension. 3. Coronary artery disease, non-ST elevation myocardial infarction, cardiac catheterization done by Cardiology. Further recommendations from cardiology. DICK/QUIANA Voice ID: [id number] Report ID: [id number] TOÑA
== END 2025-03-03 18:12 | disposition home or self-care (01) | DRG 321 ==
LOC: ER 09:23 → ERHOLD 12:13 → 4TH 12:53 → OBSVTOIN 03-02 11:33
PROVIDERS: ADMIT Hospitalist; ATTEND Hospitalist
PROC: 5A1D70Z Performance of Urinary Filtration, Intermittent, Less than 6 Hours Per Day (ICD-10-PCS; 2025-03-02)
PROC: 027034Z Dilation of Coronary Artery, One Artery with Drug-eluting Intraluminal Device, Percutaneous Approach (ICD-10-PCS; principal; 2025-03-03)
PROC: 4A023N7 Measurement of Cardiac Sampling and Pressure, Left Heart, Percutaneous Approach (ICD-10-PCS; 2025-03-03)
PROC: B2111ZZ Fluoroscopy of Multiple Coronary Arteries using Low Osmolar Contrast (ICD-10-PCS; 2025-03-03)
DX: I21.4 Non-ST elevation (NSTEMI) myocardial infarction (principal); N18.6 End stage renal disease; I12.0 Hypertensive chronic kidney disease with stage 5 chronic kidney disease or end stage renal disease; I25.110 Atherosclerotic heart disease of native coronary artery with unstable angina pectoris; E11.22 Type 2 diabetes mellitus with diabetic chronic kidney disease; E11.51 Type 2 diabetes mellitus with diabetic peripheral angiopathy without gangrene; D63.1 Anemia in chronic kidney disease; E87.5 Hyperkalemia; E66.01 Morbid (severe) obesity due to excess calories; Z99.2 Dependence on renal dialysis; Z56.0 Unemployment, unspecified; Z95.5 Presence of coronary angioplasty implant and graft; Z59.82 Transportation insecurity; Z79.82 Long term (current) use of aspirin; Z59.71 Insufficient health insurance coverage; Z90.49 Acquired absence of other specified parts of digestive tract; Z68.38 Body mass index [BMI] 38.0-38.9, adult; Z74.01 Bed confinement status; Z91.158 Patient's noncompliance with renal dialysis for other reason
CPT/HCPCS: 36415; 71045; 76937; 80048; 80053; 82947; 83735; 84100; 84484; 85025; 85347; 90935; 93005; 93454; 99152; 99153; 99285; C1725; C1877; C1893; C9600; G0378; J1644; J2003; J2250; J3010; J7040

== ENCOUNTER 2025-03-04 15:45 | Inpatient (IN) | payer OTHER ==
[2025-03-04 16:10] LABS: Absolute Lymphocytes (CBC) 1.2 K/uL (0.7-4.9); Hematocrit 33.4 % (39.6-49.0); Hemoglobin 11.1 g/dL (13.6-17.9); MCH 32.6 pg (27.0-35.0); MCHC 33.1 g/dL (32.0-36.0); MCV 98.5 fL (80-100); MPV 8.3 fL (7.6-11.3); Nucleated RBC Absolute Count 0.0 (0-0); Nucleated Red Blood Cells % 0.0 % (0-0); RBC Red Blood Cell Count 3.39 M/uL (4.33-5.43); White Blood Count 7.90 thou/uL (4.3-10.9)
--- NOTE | 2025-03-04 16:17 | RAD REPORT ---
EXAM: CT Ct Stroke Brain Wo Cont HISTORY: STROKE ALERT COMPARISON: 10/10/2024 TECHNIQUE: Multiple contiguous axial images were obtained for a CT of the brain without contrast. Sag ittal and coronal reformats were performed. One or more of the following dose reduction techniques were used: Automated exposure control, adjus tment of the mA and kV according to patient size, and iterative reconstruction. Unless otherwise specified, incidental findings do not require dedicated imaging follow-up. FINDINGS: No evidence of hydrocephalus, intracranial hemorrhage, or extra-axial fluid collection. Right small occipital region cortical/subcortical hypoattenuation, stable. The right peritrigonal par ietal linear focus of encephalomalacia approximating the cortex is also stable. The brain is otherwise normal in morphology. The calvarium is intact. The visualized paranasal sinuses and mastoid air cells are essentially clear . IMPRESSION: No evidence of acute intracranial abnormality. Stable chronic findings as above. THIS REPORT CONTAINS FINDINGS THAT MAY BE CRITICAL TO PATIENT CARE. The findings were verbally commun icated via telephone to Iftikhar Pereira on 03/04/2025 4:15 PM.
[2025-03-04 16:22] LABS: PT Prothrombin Time 13.0 SECONDS (10-13.0); PTT, Activated Partial Thromb 32.3 SECONDS (27.2-37.4); Protime INR 1.16
[2025-03-04 16:34] LABS: Anion Gap 11.4 mEq/L (5.0-15.0); BUN Blood Urea Nitrogen 33.0 mg/dL (7-18); Glucose Level 95.0 mg/dL (74-106); Potassium 4.4 mEq/L (3.5-5.1)
[2025-03-04 16:35] LABS: Troponin High Sensitivity 110.4 (<58.9)
--- NOTE | 2025-03-04 16:55 | RAD REPORT ---
EXAMINATION: CTA HEAD CLINICAL INDICATION: Male, 69 years old. VISION LOSS TECHNIQUE: Axial CT images were obtained through the head after intravenous contrast utilizing angiog raphic protocol with 3D post-processing (maximum intensity projection images, volume rendered images and/or shaded surface rendered images). One or more of the following dose reduction technique s were used: Automated exposure control, adjustment of the mA and/or kV according to patient size, and/or iterative reconstruction. Unless otherwise specified, incidental findings do not require dedic ated imaging follow-up. COMPARISON: No prior exam. FINDINGS: ICA: The petrous, cavernous, and supraclinoid segments of the bilateral internal carotid arteries are normal. UZIEL: Anterior cerebral arteries are normal bilaterally. The anterior communicating artery is patent. MCA: Multifocal mild to moderate narrowing along the right and left MCA branches, with focal severe n arrowing along the inferior branch of the right MCA superior division along the proximal sylvian fissure, see sagittal image 90/229. LOADER MAGAZINE GRINDER: Multifocal segmental moderate to severe narrowing throughout the right LOADER MAGAZINE GRINDER, most pronounced alondra g the right distal P2 superior division. Vertebrobasilar: The vertebral arteries are patent. The basilar artery is normal in appearance. 3D images confirm these findings. IMPRESSION: No large vessel occlusion. Multifocal atherosclerotic narrowing, up to severe along the right MCA M2 branches, and moderate to s evere along the right more than left distal LOADER MAGAZINE GRINDER. THIS REPORT CONTAINS FINDINGS THAT MAY BE CRITICAL TO PATIENT CARE. The findings were verbally commun icated via telephone to Iftikhar Pereira on 03/04/2025 4:32 PM.
--- NOTE | 2025-03-04 17:01 | RAD REPORT ---
EXAMINATION: ONE VIEW CHEST XR CLINICAL INDICATION: Male, 69 years old.,STROKE TECHNIQUE: Frontal chest projection is submitted. Examination is limited by patient positioning and t echnique. COMPARISON: 03/01/2025 FINDINGS: The lungs are well inflated, without focal airspace opacities. Progressive central interstitial promi nence. No pneumothorax or sizable effusion. The heart is normal in size. Mediastinal contours are unremarkable. IMPRESSION: Progressive central interstitial prominence may reflect central congestion/CHF.
--- NOTE | 2025-03-04 17:01 | RAD REPORT ---
EXAMINATION: CT Neck Angio CLINICAL INDICATION: Male, 69 years old. [facility] VISION LOSS Bed Name: 2 TECHNIQUE: Axial CT images were obtained from the aortic arch to the skull base after intravenous con trast utilizing angiographic protocol. Multiplanar reformats, as well as 3D post-processing (maximum intensity projection images, volume rendered images and/or shaded surface rendered images) w ere generated and reviewed. One or more of the following dose reduction techniques were used: Automated exposure control, adjustment of the mA and/or kV according to patient size, and/or iterativ e reconstruction. Unless otherwise specified, incidental findings do not require dedicated imaging follow-up. COMPARISON: No prior exam. FINDINGS: AORTA: The imaged aortic arch is normal. Normal three-vessel configuration of the arch. CCA: No artifact The common carotid arteries are patent and normal in caliber. ICA/ECA: Bilateral internal and external carotid arteries are patent. There is no significant interna l carotid artery stenosis. VERTEBRAL: The cervical vertebral arteries are patent to the skull base. Vertebral arteries are codom inant. Maxilla is nearly edentulous. Periapical lucencies and small collections with extensive carious oropeza es, most notably with areas of buccal surface erosion along the left maxillary and right mandibular alveolus. Please correlate with dental exam SOFT TISSUE: No significant neck soft tissue abnormalities. The visualized lung apices are clear. 3D images confirm these findings. IMPRESSION: No significant flow abnormality of the neck vessels is identified. Periapical lucencies and small collections with extensive carious changes, most notably with areas of buccal surface erosion along the left maxillary and right mandibular alveolus. Please correlate with dental exam. NASCET criteria used to quantify ICA stenosis, with the following grading scheme: Mild 0-49% stenosis Moderate 50-69% stenosis Severe 70-99% stenosis Reference: [place] Symptomatic Carotid Endarterectomy Trial Collaborators; Edwin IRBY, Olivia DW, Ankush RB, et al. Beneficial effect of carotid endarterectomy in symptomatic patients with high-grade carotid stenosis. N Engl J Med. 1990Jan 17;325(7):445-53.
--- NOTE | 2025-03-04 17:12 | ER ---
Nurse's Notes [facility] Name: Sabra Rodriguez Jr Age: 69 yrs Sex: Male : 1955 Arrival Date: 03/04/2025 Time: 15:45 Bed 2 Private MD: Diagnosis: Central retinal artery occlusion, right eye;Essential (primary) hypertension Presentation: 03/04 15:55 Chief complaint: Spouse and/or significant other states: loss of vision in right eye iw since waking up at 0800 today. LKW was 0330 this morning, was just d/c from hospital yesterday after heart cath with stent placement. Pt was seen at his eye doctor and told he had a stroke , called Dr. Villa and was told to come to ER , pt also reports he has blurry vision in left eye. Coronavirus screen: At this time, the client does not indicate any symptoms associated with coronavirus-19. Ebola Screen: No symptoms or risks identified at this time. Initial Sepsis Screen: Does the patient meet any 2 criteria? No. Patient's initial sepsis screen is negative. Does the patient have a suspected source of infection? No. Patient's initial sepsis screen is negative. Risk Assessment: Do you want to hurt yourself or someone else? Patient reports no desire to harm self or others. Onset of symptoms was March 04, 2025. 15:55 Method Of Arrival: Wheelchair iw 15:55 Acuity: KRISTINA 2 iw 15:57 An acute neurological deficit is present. The patient has been moved to a treatment iw area. Pre-hospital glucose is not applicable to this patient. Triage Assessment: 19:22 The onset of the patients symptoms was. kd3 19:23 The onset of the patients symptoms was. kd3 19:23 The onset of the patients symptoms was March 04, 2025 at 03:30. kd3 Stroke Activation: Symptom onset > 6 hours Physician: ED Attending; Name: Dr. Pereira; Notified At: ; Arrived At: Physician: Mid-Level Provider; Name: ; Notified At: ; Arrived At: Physician: [not used]; Name: ; Notified At: ; Arrived At: Physician: [not used]; Name: ; Notified At: ; Arrived At: Physician: [not used]; Name: ; Notified At: ; Arrived At: Historical: - Allergies: 15:59 No Known Allergies; iw - Home Meds: 15:58 Plavix 75 mg Oral tablet daily [Active]; aspirin 81 mg Oral capsule daily [Active]; iw - PMHx: 15:58 Diabetes - NIDDM; Hypertension; kidney disease; Vision problems; iw - PSHx: 15:58 Appendectomy; Cholecystectomy; right arm fistula; cardiac stents X 3; iw - Immunization history:: Adult Immunizations. - Infectious Disease History:: Denies. - Social history:: Smoking status: unknown. Screenin:24 [facility] ED Fall Risk Assessment (Adult) History of falling in the last 3 months, jb4 including since admission Yes- single mechanical fall (1 pt) Confusion or Disorientation No (0 pts) Intoxicated or Sedated No (0 pts) Impaired Gait No (0 pts) Mobility Assist Device Used No (0 pt) Altered Elimination Score/Fall Risk Level 0 - 2 = Low Risk Oriented to surroundings, Maintained a safe environment. Abuse screen: Denies threats or abuse. Nutritional screening: No deficits noted. Tuberculosis screening: No symptoms or risk factors identified. Assessment: 16:28 VAN Scoring: Arm Drift: Patients demonstrates NO arm weakness. Patient is VAN Negative. jb4 [place] Swallow Protocol Exclusion Criteria: Unable to remain alert for testing: No NPO for medical/surgical reason by provider order No Tracheostomy tube present No No thin liquids due to preexisting dysphagia/baseline modified diet thickened liquids No Exclusion Criteria Result: Proceed Brief Cognitive Screen What is your name? Normal, Where are you right now? Normal, What year is it? Normal. Oral Mechanism Examination Facial Symmetry: Normal, Motion: Normal, Lip Closure: Normal, Oral Mechanism Result: Normal. 3 oz Water Swallow Challenge: Pt able to drink all water without stopping, coughing, choking or throat clearing: Yes Result: PASS MD Notified: Iftikhar Pereira DO. TNKase (Tenecteplase) Screening: Contraindications: Patient reports onset of signs and symptoms of stroke greater than 6 hours ago: Yes. General: Appears in no apparent distress. comfortable, Behavior is calm, cooperative, appropriate for age. Pain: Denies pain. Neuro: Level of Consciousness is awake, alert, obeys commands, Oriented to person, place, time, situation, Reports vision loss in right eye. Cardiovascular: Patient's skin is warm and dry. Respiratory: Airway is patent Respiratory effort is even, unlabored, Respiratory pattern is regular, symmetrical. Derm: Skin is intact, Skin is pink, warm \T\ dry. Musculoskeletal: Circulation, motion, and sensation intact. Range of motion: intact in all extremities. 17:11 Reassessment: Patient appears in no apparent distress at this time. Patient and/or jb4 family updated on plan of care and expected duration. Pain level reassessed. Patient is alert, oriented x 3, equal unlabored respirations, skin warm/dry/pink. 18:36 Reassessment: Patient appears in no apparent distress at this time. Patient and/or jb4 family updated on plan of care and expected duration. Pain level reassessed. Patient is alert, oriented x 3, equal unlabored respirations, skin warm/dry/pink. 19:08 Reassessment: Patient appears in no apparent distress at this time. Patient and/or jb4 family updated on plan of care and expected duration. Pain level reassessed. Patient is alert, oriented x 3, equal unlabored respirations, skin warm/dry/pink. Vital Signs: 16:16 BP 179 / 82; Pulse 87; Resp 15; Temp 98.2(O); Pulse Ox 99% on R/A; Height 5 ft. 4 in. ; ss Pain 0/10; 16:30 BP 127 / 88; Pulse 76; Resp 18; Pulse Ox 99% on R/A; jb4 16:45 BP 130 / 68; Pulse 82; Resp 16; Pulse Ox 100% on R/A; jb4 17:15 BP 136 / 77; Pulse 65; Resp 16; Pulse Ox 100% on R/A; jb4 17:30 BP 113 / 78; Pulse 69; Resp 16; Pulse Ox 100% on R/A; jb4 17:45 BP 100 / 51; Pulse 70; Resp 16; Pulse Ox 100% on R/A; jb4 18:00 BP 109 / 50; Pulse 72; Resp 16; Pulse Ox 100% on R/A; jb4 18:15 BP 121 / 61; Pulse 65; Resp 16; Pulse Ox 99% on R/A; jb4 18:30 BP 118 / 79; Pulse 66; Resp 16; Pulse Ox 100% on R/A; jb4 18:45 BP 111 / 59; Pulse 72; Resp 16; Pulse Ox 99% on R/A; jb4 19:00 BP 134 / 61; Pulse 67; Resp 16; Pulse Ox 98% on R/A; jb4 16:16 Pain Scale: Adult ss NIH Stroke Scale Scores: 15:50 NIHSS Score: 3 ms3 16:28 NIHSS Score: 2 jb4 ED Course: 15:46 Patient arrived in ED. im 15:50 Iftikhar Pereira DO is Attending Physician. ms3 15:57 Triage completed. iw 16:00 Arm band placed on. iw 16:04 CT Stroke Brain w/o Contrast In Process Unspecified. EDMS 16:12 CT Head Angio In Process Unspecified. EDMS 16:12 CT Neck Angio In Process Unspecified. EDMS 16:27 Syed Rosas, RN is Primary Nurse. jb4 16:31 EKG done, by orthophoto tech/draftsman. reviewed by Iftikhar Pereira DO. ts3 16:52 Stroke CXR 1 View In Process Unspecified. EDMS 17:10 Adolfo Whitten MD is Hospitalizing Provider. ms3 17:24 Patient has correct armband on for positive identification. Bed in low position. Call jb4 light in reach. Side rails up X 1. Provided Education on: plan of care. 17:24 No provider procedures requiring assistance completed. Patient admitted, IV remains in jb4 place. Administered Medications: No medications were administered Medication: 17:24 VIS not applicable for this client. jb4 Outcome: 17:12 Decision to Hospitalize by Provider. ms3 19:22 Admitted to Med/surg accompanied by tech, via stretcher, kd3 19:22 Condition: stable 19:22 Discharge instructions given to patient, Instructed on the need for admit, Demonstrated understanding of instructions, 19:24 Patient left the ED. kd3 NIH Stroke Scale - NIH Stroke Score Date: 03/04/2025 Time: 15:50 Total Score = 3 10. Dysarthria (speech clarity - read or repeat words) - 0(Normal) 11. Extinction and Inattention (visual/tactile/auditory/spatial/personal) - 0(No abnormality) 1a. Level of Consciousness (LOC) - 0(Alert) 1b. Level of Consciousness (LOC) (Month \T\ Age) - 0(Both) 1c. LOC Commands (Open \T\ Closes Eyes/Incoming Inspector) - 0(Both) 2. Best Gaze (Lateral Gaze Paresis) - 0(Normal) 3. Visual Field Loss - 3(Bilateral hemianopia) 4. Facial Palsy - 0(Normal) 5a. Left Arm: Motor (10-second hold) - 0(No drift) 5b. Right Arm: Motor (10-second hold) - 0(No drift) 6a. Left Leg: Motor (5-second hold - always test supine) - 0(No drift) 6b. Right Leg: Motor (5-second hold - always test supine) - 0(No drift) 7. Limb Ataxia (finger/nose \T\ heel/serrato - test with eyes open) - 0(Absent) 8. Sensory Loss (pinprick arms/legs/face) - 0(Normal) 9. Best Language: Aphasia (description/naming/reading) - 0(No aphasia) Initials: ms3 NIH Stroke Scale - NIH Stroke Score Date: 03/04/2025 Time: 16:28 Total Score = 2 10. Dysarthria (speech clarity - read or repeat words) - 0(Normal) 11. Extinction and Inattention (visual/tactile/auditory/spatial/personal) - 0(No abnormality) 1a. Level of Consciousness (LOC) - 0(Alert) 1b. Level of Consciousness (LOC) (Month \T\ Age) - 0(Both) 1c. LOC Commands (Open \T\ Closes Eyes/Incoming Inspector) - 0(Both) 2. Best Gaze (Lateral Gaze Paresis) - 0(Normal) 3. Visual Field Loss - 2(Complete hemianopia) 4. Facial Palsy - 0(Normal) 5a. Left Arm: Motor (10-second hold) - 0(No drift) 5b. Right Arm: Motor (10-second hold) - 0(No drift) 6a. Left Leg: Motor (5-second hold - always test supine) - 0(No drift) 6b. Right Leg: Motor (5-second hold - always test supine) - 0(No drift) 7. Limb Ataxia (finger/nose \T\ heel/serarto - test with eyes open) - 0(Absent) 8. Sensory Loss (pinprick arms/legs/face) - 0(Normal) 9. Best Language: Aphasia (description/naming/reading) - 0(No aphasia) Initials: jb4 Signatures: Dispatcher [employer] EDAlicia Cool RN RN iw Blanchard, Shelby, RN RN ss Syed Rosas RN RN jb4 Iftikhar Pereira, DO LYNN ms3 Stefany Caruso RN RN kd3 Charity Frye Taisha ts3 Corrections: (The following items were deleted from the chart) 16:00 15:55 Chief complaint: Spouse and/or significant other states: loss of vision iw in right eye since waking up at 0800 today. LKW was 0330 this morning, was just d/c from hospital yesterday after heart cath with stent placement iw
--- NOTE | 2025-03-04 17:13 | EDPHYS ---
Physician Documentation [facility] Name: Sabra Rodriguez Jr Age: 69 yrs Sex: Male : 1955 Arrival Date: 03/04/2025 Time: 15:45 Bed 2 Private MD: ED Physician Iftikhar Pereira HPI: 03/04 16:03 This 69 yrs old Male presents to ER via Wheelchair with complaints of Loss Of ms3 Vision - right, S/S of Possible Stroke. 16:03 69-year-old male with past medical history of diabetes, hypertension, kidney disease, ms3 vision problems presents to the emergency department for vision loss in his right eye. Patient states he was last known normal at 3:30 AM after slipping and falling on the floor. Patient's states patient was last known normal patient's states patient was last known normal at 3:30 AM after he slipped and fell. Patient then awoke at 8 AM with inability to see from his right eye and decreased vision in his left eye. Patient saw his marketing officer Dr. Nino who told him he has had a stroke in his eye. His marketing officer called Dr. Villa and he instructed the patient to come to the emergency department.. Historical: - Allergies: 15:59 No Known Allergies; iw - Home Meds: 15:58 Plavix 75 mg Oral tablet daily [Active]; aspirin 81 mg Oral capsule daily [Active]; iw - PMHx: 15:58 Diabetes - NIDDM; Hypertension; kidney disease; Vision problems; iw - PSHx: 15:58 Appendectomy; Cholecystectomy; right arm fistula; cardiac stents X 3; iw - Immunization history:: Adult Immunizations. - Infectious Disease History:: Denies. - Social history:: Smoking status: unknown. ROS: 16:03 Constitutional: Negative for fever, and chills. Cardiovascular: Negative for chest ms3 pain, and palpitations. Respiratory: Negative for shortness of breath, cough, wheezing, and pleuritic chest pain, Abdomen/GI: Negative for abdominal pain, nausea, vomiting, diarrhea, and constipation, 16:03 MS/Extremity: Negative for injury and deformity, Skin: Negative for injury, rash, and discoloration, 16:03 Eyes: Positive for blurry vision, vision loss, Exam: 16:03 Constitutional: This is a well developed, well nourished patient who is awake, alert, ms3 and in no acute distress. Cardiovascular: Regular rate and rhythm with a normal S1 and S2. No gallops, murmurs, or rubs. Normal PMI, no JVD. No pulse deficits. Respiratory: Lungs have equal breath sounds bilaterally, clear to auscultation and percussion. No rales, rhonchi or wheezes noted. No increased work of breathing, no retractions or nasal flaring. Abdomen/GI: Soft, non-tender, with normal bowel sounds. No distension or tympany. No guarding or rebound. No evidence of tenderness throughout. MS/ Extremity: Pulses equal, no cyanosis. Neurovascular intact. Full, normal range of motion. 16:03 Eyes: Periorbital structures: appear normal, Visual singh: No vision in right eye. Patient states blurry vision in left eye, no visual field deficit noted. 16:33 Radiologist reports: Negative acute. Remote R occipital infarct ms3 16:33 ECG was reviewed by the Attending Physician. Vital Signs: 16:16 BP 179 / 82; Pulse 87; Resp 15; Temp 98.2(O); Pulse Ox 99% on R/A; Height 5 ft. 4 in. ; ss Pain 0/10; 16:30 BP 127 / 88; Pulse 76; Resp 18; Pulse Ox 99% on R/A; jb4 16:45 BP 130 / 68; Pulse 82; Resp 16; Pulse Ox 100% on R/A; jb4 17:15 BP 136 / 77; Pulse 65; Resp 16; Pulse Ox 100% on R/A; jb4 17:30 BP 113 / 78; Pulse 69; Resp 16; Pulse Ox 100% on R/A; jb4 17:45 BP 100 / 51; Pulse 70; Resp 16; Pulse Ox 100% on R/A; jb4 18:00 BP 109 / 50; Pulse 72; Resp 16; Pulse Ox 100% on R/A; jb4 18:15 BP 121 / 61; Pulse 65; Resp 16; Pulse Ox 99% on R/A; jb4 18:30 BP 118 / 79; Pulse 66; Resp 16; Pulse Ox 100% on R/A; jb4 18:45 BP 111 / 59; Pulse 72; Resp 16; Pulse Ox 99% on R/A; jb4 19:00 BP 134 / 61; Pulse 67; Resp 16; Pulse Ox 98% on R/A; jb4 16:16 Pain Scale: Adult ss NIH Stroke Scale Scores: 15:50 NIHSS Score: 3 ms3 16:28 NIHSS Score: 2 jb4 MDM: 15:50 Medical Screening Exam initiated ms3 16:03 Differential diagnosis: CVA, TIA, CRAO. ms3 17:16 TNKase (Tenecteplase) Screening: Contraindications: Patient reports onset of signs and ms3 symptoms of stroke greater than 6 hours ago: Yes. Data reviewed: vital signs, nurses notes, lab test result(s), EKG, radiologic studies, and as a result, I will admit patient. Consideration of Admission/Observation Patient was admitted/placed on observation. Management of patient was discussed with the following: Hospitalist: Faustino on behalf of Dr Whitten. Management of patient was discussed with the following: [facility] Counselor: Dr Samanta NUNEZ >12 hours. Nothing to do from ophthalmology standpoint. Discussed case with Dr Dee and he recommends medical management. I considered the following discharge prescriptions or medication management in the emergency department Medications were administered in the Emergency Department. See MAR. Independent interpretation of the following test(s) in the Emergency Department EKG: See my EKG interpretation above CT Scan: My interpretation is CT head without contrast images reviewed did not reveal ICH. Counseling: I had a detailed discussion with the patient and/or guardian regarding the historical points, exam findings, and any diagnostic results supporting the discharge/admit diagnosis, lab results, radiology results, the need for further work-up and treatment in the hospital. ED course: Discussed plan for admission with the patient and his . They understand agree with plan. All questions were answered. . 03/04 15:54 Order name: Basic Metabolic Panel; Complete Time: 16:38 ss 03/04 15:54 Order name: CBC with Diff; Complete Time: 16:38 ss 03/04 15:54 Order name: High Sensitivity Troponin; Complete Time: 16:38 ss 03/04 15:54 Order name: Protime (+inr); Complete Time: 16:38 ss 03/04 15:54 Order name: Ptt, Activated; Complete Time: 16:38 ss 03/04 16:25 Order name: Glucose, Ancillary Testing; Complete Time: 16:38 EDMA 03/04 18:17 Order name: CBC with Automated Diff EDMA 03/04 18:17 Order name: CBC with Automated Diff EDMS 03/04 18:17 Order name: Comprehensive Metabolic Panel EDMA 03/04 18:17 Order name: Comprehensive Metabolic Panel EDMA 03/04 18:17 Order name: Magnesium EDMA 03/04 18:17 Order name: Magnesium EDMA 03/04 18:17 Order name: Phosphorus EDMA 03/04 18:17 Order name: Phosphorus EDMA 03/04 15:54 Order name: CT Stroke Brain w/o Contrast; Complete Time: 16:38 ss 03/04 15:54 Order name: Stroke CXR 1 View; Complete Time: 17:04 ss 03/04 15:56 Order name: CT Head Angio; Complete Time: 17:02 ms3 03/04 15:56 Order name: CT Neck Angio; Complete Time: 17:02 ms3 03/04 18:17 Order name: Echo with Doppler EDMA 03/04 18:17 Order name: IRF Screen EDMA 03/04 18:17 Order name: Physical Therapy Consult EDMA 03/04 18:17 Order name: Speech Therapy Consult EDMA 03/04 15:54 Order name: Accucheck; Complete Time: 16:27 ss 03/04 15:54 Order name: Cardiac monitoring; Complete Time: 16:27 ss 03/04 15:54 Order name: EKG - Nurse/Tech; Complete Time: 16:31 ss 03/04 15:54 Order name: IV Saline Lock; Complete Time: 16:27 ss 03/04 15:54 Order name: Labs collected and sent; Complete Time: 16:27 ss 03/04 15:54 Order name: NPO; Complete Time: 16:27 ss 03/04 15:54 Order name: O2 Per Protocol; Complete Time: 16:27 ss 03/04 15:54 Order name: O2 Sat Monitoring; Complete Time: 16:27 ss 03/04 15:54 Order name: Stroke Swallow Screen; Complete Time: 17:23 ss EC:33 Rate is 62 beats/min. Rhythm is irregularly irregular. Left axis deviation noted. QRS ms3 interval is prolonged. Clinical impression: Atrial Fibrillation. Interpreted by me. Reviewed by me. Administered Medications: No medications were administered Disposition Summary: 03/04/25 17:12 Hospitalization Ordered Notes: Hospitalization Status: Inpatient Admission ms3 Provider: Adolfo Whitten ms3 Location: Telemetry/MedSurg (Inpatient) ms3 Condition: Stable ms3 Problem: new ms3 Symptoms: are unchanged ms3 Bed/Room Type: Standard ms3 Room Assignment: 220(03/04/25 18:21) bd Diagnosis - Central retinal artery occlusion, right eye ms3 - Essential (primary) hypertension ms3 Forms: - Medication Reconciliation Form ms3 - SBAR form ms3 - Leadership Thank You Letter ms3 NIH Stroke Scale - NIH Stroke Score Date: 03/04/2025 Time: 15:50 Total Score = 3 10. Dysarthria (speech clarity - read or repeat words) - 0(Normal) 11. Extinction and Inattention (visual/tactile/auditory/spatial/personal) - 0(No abnormality) 1a. Level of Consciousness (LOC) - 0(Alert) 1b. Level of Consciousness (LOC) (Month \T\ Age) - 0(Both) 1c. LOC Commands (Open \T\ Closes Eyes/Shift Superintendent Caustic Cres[place]) - 0(Both) 2. Best Gaze (Lateral Gaze Paresis) - 0(Normal) 3. Visual Field Loss - 3(Bilateral hemianopia) 4. Facial Palsy - 0(Normal) 5a. Left Arm: Motor (10-second hold) - 0(No drift) 5b. Right Arm: Motor (10-second hold) - 0(No drift) 6a. Left Leg: Motor (5-second hold - always test supine) - 0(No drift) 6b. Right Leg: Motor (5-second hold - always test supine) - 0(No drift) 7. Limb Ataxia (finger/nose \T\ heel/serrato - test with eyes open) - 0(Absent) 8. Sensory Loss (pinprick arms/legs/face) - 0(Normal) 9. Best Language: Aphasia (description/naming/reading) - 0(No aphasia) Initials: ms3 NIH Stroke Scale - NIH Stroke Score Date: 03/04/2025 Time: 16:28 Total Score = 2 10. Dysarthria (speech clarity - read or repeat words) - 0(Normal) 11. Extinction and Inattention (visual/tactile/auditory/spatial/personal) - 0(No abnormality) 1a. Level of Consciousness (LOC) - 0(Alert) 1b. Level of Consciousness (LOC) (Month \T\ Age) - 0(Both) 1c. LOC Commands (Open \T\ Closes Eyes/Shift Superintendent Caustic Cresylate) - 0(Both) 2. Best Gaze (Lateral Gaze Paresis) - 0(Normal) 3. Visual Field Loss - 2(Complete hemianopia) 4. Facial Palsy - 0(Normal) 5a. Left Arm: Motor (10-second hold) - 0(No drift) 5b. Right Arm: Motor (10-second hold) - 0(No drift) 6a. Left Leg: Motor (5-second hold - always test supine) - 0(No drift) 6b. Right Leg: Motor (5-second hold - always test supine) - 0(No drift) 7. Limb Ataxia (finger/nose \T\ heel/serrato - test with eyes open) - 0(Absent) 8. Sensory Loss (pinprick arms/legs/face) - 0(Normal) 9. Best Language: Aphasia (description/naming/reading) - 0(No aphasia) Initials: jb4 Signatures: Dispatcher [employer] EDMS Kathi Bar Irene, RN TAMIR iw Davida Pickett RN RN ss Iftikhar Pereira, DO ms3 Stefany Caruso, RN RN kd3 Corrections: (The following items were deleted from the chart) 15:55 15:55 Chest Single View+[email or web address] ordered. EDMS EDMS 18:21 17:12 ms3 bd
[2025-03-04] MEDS ORDERED: ACETAMINOPHEN 500 MG TAB PO PRN (18:11)
[2025-03-04] MEDS ORDERED: ONDANSETRON 4 MG/2 ML VIAL IV PRN (18:11)
[2025-03-04] MEDS: NA CHLORIDE 0.9% 1,000 ML IV SCH (19:00)
[2025-03-04] MEDS ORDERED: D10W 250 ML BAG IV ONE (20:11)
[2025-03-04] MEDS: D10W 250 ML BAG IV ONE (20:28)
[2025-03-04 20:37] VITALS: BMI 35.3
[2025-03-04] MEDS: ATORVASTATIN 80 MG TAB PO SCH (21:00)
[2025-03-04] MEDS: D5LR 1,000 ML IV SCH (21:07)
[2025-03-04] MEDS: DEXTROSE 10%-WATER 500 ML IV ONE (21:30)
[2025-03-05 04:46] LABS: Absolute Lymphocytes (CBC) 1.0 K/uL (0.7-4.9); Hematocrit 30.7 % (39.6-49.0); Hemoglobin 10.4 g/dL (13.6-17.9); MCH 33.4 pg (27.0-35.0); MCHC 33.8 g/dL (32.0-36.0); MCV 98.8 fL (80-100); MPV 8.6 fL (7.6-11.3); Nucleated RBC Absolute Count 0.0 (0-0); Nucleated Red Blood Cells % 0.3 % (0-0); RBC Red Blood Cell Count 3.11 M/uL (4.33-5.43); White Blood Count 6.20 thou/uL (4.3-10.9)
[2025-03-05 05:17] LABS: ALT/SGPT 18.0 U/L (16-61); AST/SGOT 18.0 U/L (15-37); Albumin 3.1 g/dL (3.4-5.0); Albumin/Globulin Ratio 0.8 (1.1-1.8); Alkaline Phosphatase 94.0 U/L (45-117); Anion Gap 11.0 mEq/L (5.0-15.0); BUN Blood Urea Nitrogen 36.0 mg/dL (7-18); Globulin 3.8 g/dL (2.3-3.5); Glucose Level 96.0 mg/dL (74-106); Magnesium 2.2 mg/dL (1.6-2.4); Potassium 4.0 mEq/L (3.5-5.1)
--- NOTE | 2025-03-05 08:45 | P.HP ---
Certification for Inpatient Patient admitted to: Inpatient With expected LOS: >2 Midnights Patient will require the following post-hospital care: None Practitioner: I am a practitioner with admitting privileges, knowledge of patient current condition, hospital course, and medical plan of care. Services: Services provided to patient in accordance with Admission requirements found in Title 42 Section 412.3 of the Code of Federal Regulations Patient History Date of Service: 03/04/25 Reason for admission: Right retinal artery occlusion History of Present Illness: Patient is a 69-year-old gentleman who came to the hospital with occlusion of the right retinal artery. Patient presented with difficulty seeing with the right eye. Patient saw intelligence manager and on eye exam patient was found to have a occlusion of the retinal artery. Patient was sent into the emergency room. Patient had gone to [facility] for exam. In the emergency room patient states the vision is getting better. No headache. No jaw pain. No signs of temporal arteritis causing the retinal artery occlusion. Do not see any benefit from steroids in this situation. Patient did have a recent cardiac catheterization with intervention performed. Will resume antiplatelet therapy and statin therapy and strict blood pressure control. Patient will be admitted to the hospital for further medical management. Allergies No Known Allergies Allergy (Verified 02/18/25 07:51) Home Medications: Aspirin 81 mg PO DAILY 02/01/24 Midodrine HCl 5 mg PO TID 30 Days #90 tab 02/14/24 Clopidogrel Bisulfate [Plavix] 75 mg PO DAILY 03/01/25 Atorvastatin Calcium [Lipitor] 80 mg PO BEDTIME #90 tab 03/03/25 - Past Medical/Surgical History Has patient received pneumonia vaccine in the past: Yes Diabetic: Yes -: HTN -: DM -: sleep apnea -: CHF -: CKD -: appendectomy -: subtotal cholecystectomy november 05, 2019 -: ERCP november 06, 2019 Psychosocial/ Personal History: Patient lives at home with his family. - Family History Father Medical History: Hypertension, Diabetes - Social History Smoking Status: Never smoker Alcohol use: No CD- Drugs: No Caffeine use: No Place of Residence: Home Review of Systems 10-point ROS is otherwise unremarkable Physical Examination - Vital Signs Temperature: 97.9 F Blood Pressure: 122/58 Pulse: 61 Respirations: 17 Pulse Ox (%): 97 - Physical Exam General: Alert, In no apparent distress, Oriented x3 HEENT: Atraumatic, PERRLA, Mucous membr. moist/pink, EOMI, Sclerae nonicteric Neck: Supple, 2+ carotid pulse no bruit, No LAD, Without JVD or thyroid abnormality Respiratory: Clear to auscultation bilaterally, Normal air movement Cardiovascular: Regular rate/rhythm, Normal S1 S2 Gastrointestinal: Normal bowel sounds, Soft and benign, Non-distended, W/out succussion splash, No tenderness Musculoskeletal: No clubbing, No swelling, No tenderness Integumentary: No rashes Neurological: Normal speech, Normal tone, Normal affect, Abnormal gait, Abnormal strength, Abnormal cranial nerve function Lymphatics: No axilla or inguinal lymphadenopathy - Studies Laboratory Data (last 24 hrs) 03/04/25 03/04/25 03/04/25 16:00 16:00 16:00 WBC 7.90 Hgb 11.1 L Hct 33.4 L Plt Count 169 PT 13.0 INR 1.16 APTT 32.3 Sodium 140 Potassium 4.4 BUN 33 H Creatinine 6.03 H Glucose 95 Assessment & Plan - Problems (Diagnosis) (1) Retinal artery occlusion Current Visit: Yes Status: Acute (2) Retinal artery branch occlusion of right eye Current Visit: Yes Status: Acute (3) Coronary artery disease status post coronary stent insertion Current Visit: Yes Status: Acute (4) Atrial fibrillation Current Visit: No Status: Acute (5) Chronic diastolic heart failure Current Visit: No Status: Acute (6) HLD (hyperlipidemia) Current Visit: No Status: Acute (7) HTN (hypertension) Current Visit: No Status: Acute - Plan Plan: 1. Continue with antiplatelet therapy and statin therapy. Patient's symptoms started 12 hours prior to coming into the emergency room so out of window for any thrombolytics. Cardiology consulted and patient was seen by ophthalmology. No further ophthalmologic intervention needed. Will get neurology input as they were consulted from the emergency room as well. Continue with antiplatelet therapy and statin therapy and will get physical therapy evaluation. Patient admitted for an inpatient hospitalization 2. History of CAD status post stents; continue with antiplatelet therapy with aspirin and Plavix and statin therapy and strict blood pressure control 3. ESRD; metabolic syndrome; strict blood pressure and blood sugar control 4. GI DVT prophylaxis Discharge Plan: Home Plan to discharge in: Greater than 2 days - Advance Directives Does patient have a Living Will: No Does patient have a Durable POA for Healthcare: No - Code Status/Comfort Care Code Status Assessed: Yes Code Status: Full Code Critical Care: No Time Spent Managing PTS Care (In Minutes): 45
--- NOTE | 2025-03-05 08:47 | P.PN ---
Subjective Date of Service: 03/05/25 Patient doing well with no new complaints. Clinical symptoms are stable. Review of Systems 10-point ROS is otherwise unremarkable Physical Examination - Vital Signs Temperature: 97.9 F Blood Pressure: 122/58 Pulse: 61 Respirations: 17 Pulse Ox (%): 97 - Physical Exam General: Alert, In no apparent distress, Oriented x3 Respiratory: Clear to auscultation bilaterally, Normal air movement Cardiovascular: Regular rate/rhythm, Normal S1 S2, No murmurs Gastrointestinal: Normal bowel sounds, Soft and benign, Non-distended, No tenderness, No rebound, No guarding Musculoskeletal: No clubbing, No swelling, No tenderness Neurological: Sensation intact, Cranial nerves 3-12 intact - Studies Laboratory Data (last 24 hrs) 03/04/25 03/04/25 03/04/25 16:00 16:00 16:00 WBC 7.90 Hgb 11.1 L Hct 33.4 L Plt Count 169 PT 13.0 INR 1.16 APTT 32.3 Sodium 140 Potassium 4.4 BUN 33 H Creatinine 6.03 H Glucose 95 Medications List Reviewed: Yes Assessment & Plan - Problems (Diagnosis) (1) Retinal artery occlusion Current Visit: Yes Status: Acute (2) Retinal artery branch occlusion of right eye Current Visit: Yes Status: Acute (3) Coronary artery disease status post coronary stent insertion Current Visit: Yes Status: Acute (4) Atrial fibrillation Current Visit: No Status: Acute (5) Chronic diastolic heart failure Current Visit: No Status: Acute (6) HLD (hyperlipidemia) Current Visit: No Status: Acute (7) HTN (hypertension) Current Visit: No Status: Acute - Plan Plan: Continue with plan of care as mentioned below: 1. Retinal artery occlusion- Continue with antiplatelet therapy and statin therapy. Patient's symptoms started 12 hours prior to coming into the emergency room so out of window for any thrombolytics. Cardiology consulted and patient was seen by ophthalmology. No further ophthalmologic intervention needed. Will get neurology input as they were consulted from the emergency room as well. Continue with antiplatelet therapy and statin therapy and will get physical therapy evaluation. Patient admitted for an inpatient hospitalization 2. History of CAD status post stents; continue with antiplatelet therapy with aspirin and Plavix and statin therapy and strict blood pressure control 3. ESRD; metabolic syndrome; strict blood pressure and blood sugar control 4. GI DVT prophylaxis Discharge Plan: Home Plan to discharge in: Greater than 2 days - Advance Directives Does patient have a Living Will: No Does patient have a Durable POA for Healthcare: No - Code Status/Comfort Care Code Status: Full Code Critical Care: No Time Spent Managing PTS Care (In Minutes): 30
[2025-03-05] MEDS: MIDODRINE HCL 5 MG TABLET PO SCH (09:00)
[2025-03-05] MEDS ORDERED: CLOPIDOGREL 75 MG TABLET PO SCH (09:00)
[2025-03-05] MEDS ORDERED: ASPIRIN EC 81 MG TAB PO SCH (09:00)
[2025-03-05] MEDS: CLOPIDOGREL 75 MG TABLET PO SCH (09:18)
[2025-03-05] MEDS: ASPIRIN 81 MG CHEWABLE TABLET PO SCH (09:18)
[2025-03-05] MEDS: ENOXAPARIN 30 MG/0.3 ML SQ SCH (09:19)
[2025-03-05] MEDS ORDERED: ATORVASTATIN 80 MG TAB PO SCH (21:00)
[2025-03-06 02:09] VITALS: O2SAT 99
[2025-03-06 08:57] VITALS: BP 135/59; TEMP 97.8
[2025-03-06] MEDS: FLU (Fluarix) 25-26 (6MOS UP)/PF 45 MCG/0.5 ML Syringe IM ONE (09:00)
== END 2025-03-06 10:45 | disposition home or self-care (01) | DRG 124 ==
LOC: ER 15:45 → ERHOLD 18:11 → 2ND 19:17
PROVIDERS: ADMIT Hospitalist; ATTEND Hospitalist
PROC: 5A09357 Assistance with Respiratory Ventilation, Less than 24 Consecutive Hours, Continuous Positive Airway Pressure (ICD-10-PCS; principal; 2025-03-06)
DX: H34.11 Central retinal artery occlusion, right eye (principal); I50.33 Acute on chronic diastolic (congestive) heart failure; N18.6 End stage renal disease; I13.2 Hypertensive heart and chronic kidney disease with heart failure and with stage 5 chronic kidney disease, or end stage renal disease; E11.22 Type 2 diabetes mellitus with diabetic chronic kidney disease; E88.810 Metabolic syndrome; E78.5 Hyperlipidemia, unspecified; I25.10 Atherosclerotic heart disease of native coronary artery without angina pectoris; Z95.5 Presence of coronary angioplasty implant and graft; Z79.82 Long term (current) use of aspirin; Z79.02 Long term (current) use of antithrombotics/antiplatelets; Z90.49 Acquired absence of other specified parts of digestive tract; Z79.899 Other long term (current) drug therapy
CPT/HCPCS: 36415; 70450; 70496; 70498; 71045; 80048; 80053; 82947; 83735; 84100; 84484; 85025; 85610; 85730; 93005; 93306; 94660; 94760; 97116; 97161; 97530; 99285; J1650; J7030; J7121; Q9967